=== PATIENT | female | born 1945 | race Asian ===

== ENCOUNTER 2022-05-10 08:00 | Emergency (ER) | payer MEDICARE, MEDICAID, SELFPAY ==
[2022-05-10 08:19] VITALS: BP 94/56; PULSE 63; RESP 18; TEMP 35.9; O2SAT 98
[2022-05-10 09:00] VITALS: PULSE 78; RESP 16; O2SAT 97
--- NOTE | 2022-05-10 09:01 | CRLHL7_ITS ---
For Patients: As a result of the Cures Act, medical imaging exams and procedure reports are released immediately into your electronic medical record. You may view this report before your referring provider. If you have questions, please contact your health care provider. HISTORY: Chronic pain. TECHNIQUE: Two views of both knees. COMPARISON: No prior. FINDINGS: Mild degenerative changes involving both knees. There is no acute fracture or suprapatellar joint effusion. Vascular calcifications are present bilaterally. On the left, there are surgical clips which likely relate to prior vein graft harvest. IMPRESSION: 1. No acute fracture or suprapatellar joint effusion. 2. Mild degenerative changes. Dictated by Rafal Miranda MD @ 05/10/2022 10:16:35 AM Dictated by: Rafal Miranda MD @ 05/10/2022 10:16:37 (Electronically Signed)
--- NOTE | 2022-05-10 09:02 | CRLHL7_ITS ---
For Patients: As a result of the Cures Act, medical imaging exams and procedure reports are released immediately into your electronic medical record. You may view this report before your referring provider. If you have questions, please contact your health care provider. HISTORY: Worsening chronic pain. TECHNIQUE: One view of the pelvis. COMPARISON: No prior. FINDINGS: There is no acute fracture. Degenerative changes of the hips. The right hip joint space is mildly to moderately narrowed superiorly. There are degenerative changes within the lower lumbar spine. No acute fracture. Vascular calcifications are present. IMPRESSION: 1. No acute fracture. 2. Degenerative changes. Dictated by Rafal Miranda MD @ 05/10/2022 10:13:39 AM Dictated by: Rafal Miranda MD @ 05/10/2022 10:13:45 (Electronically Signed)
--- NOTE | 2022-05-10 09:03 | ED.GENADULT ---
HPI - General Adult General Chief complaint: Extremity Pain/Injury, Lower Stated complaint: Bilateral leg pain can't walk Time Seen by Provider: 05/10/22 08:55 History of Present Illness HPI narrative: This 76-year-old female comes in with her daughter. She is Hmong and her daughter is able to translate for her. She reports pain in her legs for the past year that has been worsening. This is especially so in the past month. The patient reports pain with bearing weight but also when laying down. She does not have any injury event or fall. She is not taking any medications for pain. She is able to raise each leg off of the bed. Related Data Previous Rx's Medication Instructions Recorded hydrocodone 5 mg-acetaminophen 325 1 tab PO Q4-6H PRN pain #20 tabs 05/10/22 mg tablet Allergies Allergy/AdvReac Type Severity Reaction Status Date / Time No Known Allergies Allergy Unverified 12/18/21 10:37 Review of Systems Narrative: Review of systems is difficult to obtain with language barrier. She does report leg pain as described above. [facility] Medical History (Updated 05/10/22 @ 11:04 by Scott Rojas MD) History of migraine History of myocardial infarction (02/04/10) Surgical History (Updated 12/25/21 @ 10:37 by Dioni Jones) History of cataract extraction (07/2017) History of coronary artery bypass surgery (2009) Social History Smoking Status: Never smoker How often do you have a drink containing alcohol: never AUDIT-C Alcohol total score: 0 Non-prescribed substance use: denies use Exam Narrative: Exam Narrative: Constitutional: Well-developed, well-nourished, no acute distress. HEENT: Normocephalic, atraumatic. Neck: Normal range of motion. Nontender. Supple. Heart: Regular. No murmurs. Normal rate. Intact distal pulses. Lungs: Clear to auscultation. No chest discomfort. No wheezes, rhonchi, or rales. Abdomen: Normal bowel sounds. Nontender. No rebound tenderness. Genitalia: Deferred. Back: No midline tenderness. Normal range of motion. Extremities: No sign of injury. He is able to raise each leg from the bed. She reports diffuse pain throughout her legs and hips. Skin: Intact. No rash. Warm. No erythema or pallor. Neurologic: No altered sensation. No weakness. Alert and oriented. Psychiatric: No suicidality. No anxiety or depression. No insomnia. Nursing notes and vitals signs are reviewed. Const: Vital Signs, click to edit/add: Vital Signs - 24 hr 05/10/22 08:19 Temperature 96.7 F L Pulse Rate [Pulse Oximeter] 63 Respiratory Rate 18 Blood Pressure [Ri ght Upper Arm] 94/56 L Pulse Oximetry 98 Oxygen Delivery Me thod Room Air Course Vital Signs Vital signs: Initial Vital Signs Temperature 96.7 F L 05/10/22 08:19 Temperature Source Temporal Artery Scan 05/10/22 08:19 Pulse Rate 63 05/10/22 08:19 Respiratory Rate 18 05/10/22 08:19 Blood Pressure 94/56 L 05/10/22 08:19 Blood Pressure Mean 68 05/10/22 08:19 Blood Pressure Position Sitting 05/10/22 08:19 Pulse Oximetry 98 05/10/22 08:19 Oxygen Delivery Method 05/10/22 08:19 Vital Signs Temperature 96.7 F L 05/10/22 08:19 Pulse Rate 63 05/10/22 08:19 Respiratory Rate 18 05/10/22 08:19 Blood Pressure 94/56 L 05/10/22 08:19 Pulse Oximetry 98 05/10/22 08:19 Oxygen Delivery Method 05/10/22 08:19 Temperature 96.7 F L 05/10/22 08:19 Pulse Rate 63 05/10/22 08:19 Respiratory Rate 18 05/10/22 08:19 Blood Pressure 94/56 L 05/10/22 08:19 Pulse Oximetry 98 05/10/22 08:19 Oxygen Delivery Method 05/10/22 08:19 Medical Decision Making MDM Narrative Medical decision making narrative: This patient comes in with her daughter because of worsening chronic pain in her lower extremities. There was no particular injury event. She is not on any pain medications. An IV was established and labs were drawn. She did received Dilaudid 0.2 mg which brought some relief to her symptoms. Her labs return completely normal. Additionally x-ray images of her pelvis and bilateral knees show no acute findings. She does have some degenerative changes in these joints and this most likely explains her pain. Her sed rate returns in normal range. I explained these results to the patient's daughter who is able to translate to her mother's northern [place] language. A prescription for Evarts is provided. I explained that this is not a good long-term plan for pain relief and that she should follow-up with her primary physician in this regard. Lab Data Labs: Lab Results 05/10/22 05/10/22 05/10/22 Range/Units 09:30 09:30 09:30 WBC 4.89 (4.50-11.00) K/uL RBC 4.58 (4.00-5.20) m/uL Hgb 13.0 (12.0-16.0) gm/dL Hct 41.3 (33.0-51.0) % MCV 90 (80-100) fL MCH 28 (26-34) pg MCHC 32 (32-36) gm/dL RDW Coeff of Mandi 14.2 (11.5-15.5) % Plt Count 176 (140-440) K/uL Neut % (Auto) 62.3 (42.0-72.0) % Lymph % (Auto) 25.8 (20-44) % Johnson % (Auto) 8.2 (0.0-11.0) % Eos % (Auto) 3.1 (0.0-7.0) % Baso % (Auto) 0.4 (0.0-3.0) % Neut # (Auto) 3.05 (1.7-7.0) K/uL Lymph # (Auto) 1.26 (0.90-2.90) K/uL Johnson # (Auto) 0.40 (0.00-0.90) K/UL Eos # (Auto) 0.15 (0.00-0.50) K/uL Baso # (Auto) 0.02 (0.00-0.30) K/uL Abs Immat Gran (auto) 0.01 (0.00-0.30) K/uL Imm/Tot Granulo (auto) 0.2 % ESR 18 (2-20) mm/hr Sodium 140 (135-149) mmol/L Potassium 3.6 (3.6-5.1) mmol/L Chloride 108 (96-114) mmol/L Carbon Dioxide 27 (20-32) mmol/L BUN 19 (7-30) mg/dL Creatinine 0.5 (0.5-1.5) mg/dL Estimated GFR 97 ml/min Glucose 113 (60-115) mg/dL Calcium 8.6 (8.4-10.6) mg/dL Imaging Data XR Pelvis: Radiologist's impression: There is no acute fracture. Degenerative changes of the hips. The right hip joint space is mildly to moderately narrowed superiorly. There are degenerative changes within the lower lumbar spine. No acute fracture. Vascular calcifications are present. XR Knees bilateral: Radiologist's impression: 1. No acute fracture or suprapatellar joint effusion. 2. Mild degenerative changes. Discharge Plan Discharge Clinical Impression: Lower extremity pain, bilateral Patient Disposition: Home, Self-Care Condition: Stable Additional Instructions: Take medications as needed and indicated. Follow up with MD to consider ongoing plans for pain management or return if worsening. Prescriptions: New hydrocodone-acetaminophen 5-325 mg tablet 1 tab PO Q4-6H PRN (Reason: pain) Qty: 20 0RF Follow Up/Referrals: John San MD [Primary Care Provider] - Stand Alone Forms: [employer] Info Instructions
[2022-05-10] MEDS: HYDROmorphone 0.5 mg/0.5 ml inj 0.2 MG IVP (09:36)
[2022-05-10 09:43] LABS: Basophils Absolute Auto 0.02 K/uL (0.00-0.30); Basophils Percent Auto 0.4 % (0.0-3.0); Eosinophils Absolute Auto 0.15 K/uL (0.00-0.50); Eosinophils Percent Auto 3.1 % (0.0-7.0); Hematocrit 41.3 % (33.0-51.0); Immature Granulocytes Abs Auto 0.01 K/uL (0.00-0.30); Immature Granulocytes Pct Auto 0.2 %; Lymphocytes Absolute Auto 1.26 K/uL (0.90-2.90); Lymphocytes Percent Auto 25.8 % (20-44); Mean Corpuscular HGB Conc 32 gm/dL (32-36); Mean Corpuscular Hemoglobin 28 pg (26-34); Mean Corpuscular Volume 90 fL (80-100); Monocytes Percent Auto 8.2 % (0.0-11.0); Neutrophils Absolute Auto 3.05 K/uL (1.7-7.0); Neutrophils Percent Auto 62.3 % (42.0-72.0); Platelet Count* 176 K/uL (140-440); RDW Coefficient of Variation % 14.2 % (11.5-15.5); Red Blood Count 4.58 m/uL (4.00-5.20); White Blood Count* 4.89 K/uL (4.50-11.00)
--- NOTE | 2022-05-10 09:43 | ED.NURSE ---
pt sleeping soundly between cares. dilaudid iv given for 10/10 bilateral leg pain. daughter at bedside interpreting. pt understanding mozambican also.
[2022-05-10 09:51] LABS: Slide Review Reflex No
[2022-05-10 09:55] LABS: Chloride* 108 mmol/L (96-114); Sodium* 140 mmol/L (135-149)
[2022-05-10 09:56] LABS: Potassium* 3.6 mmol/L (3.6-5.1)
[2022-05-10 09:58] LABS: Carbon Dioxide* 27 mmol/L (20-32); Creatinine* 0.5 mg/dL (0.5-1.5); Estimated Glomerular Filt Rate 97 ml/min
[2022-05-10 09:59] LABS: Blood Urea Nitrogen* 19 mg/dL (7-30); Calcium* 8.6 mg/dL (8.4-10.6); Glucose* 113 mg/dL (60-115)
[2022-05-10 10:56] LABS: Erythrocyte SedimentationRate* 18 mm/hr (2-20)
== END 2022-05-10 11:22 | disposition home or self-care (01) ==
PROVIDERS: Emergency Provider Emergency Medicine Emergency Medical Services; PCP Family Medicine
DX: M79.604 Pain in right leg (principal); M79.605 Pain in left leg
CPT/HCPCS: 36415; 72170; 73560; 80048; 85025; 85651; 96374; 99284; J1170

== ENCOUNTER 2022-07-24 17:14 | Emergency (ER) | payer MEDICARE, MEDICAID, SELFPAY ==
[2022-07-24] VITALS (18 sets, daily range): BP systolic 83–129; BP diastolic 54–76; PULSE 64–72; RESP 20; TEMP 36.2; O2SAT 94–99
--- NOTE | 2022-07-24 18:50 | CRLHL7_ITS ---
For Patients: As a result of the Century Cures Act, medical imaging exams and procedure reports are released immediately into your electronic medical record. You may view this report before your referring provider. If you have questions, please contact your health care provider. INDICATION: Chest pain. TECHNIQUE: Chest 1 views. COMPARISON: None. FINDINGS: Cardiovascular and mediastinum: Magnified heart size secondary to low lung volume. Normal vasculature. Sternotomy wires. Lungs and pleural spaces: Lungs are clear. No sign of infiltrate or mass. No sign of pleural effusion. No pneumothorax. Bones and soft tissues: No significant findings. IMPRESSION: Magnified heart size secondary to low lung volumes. No acute cardiopulmonary abnormality. Dictated by Mele Davalos MD @ 07/24/2022 7:44:47 PM (Electronically Signed)
--- NOTE | 2022-07-24 18:53 | ED_ITS ---
HPI - Chest Pain General Chief Complaint: Chest Pain Stated Complaint: Covid+, Chest Pain Time Seen by Provider: 07/24/22 18:35 History of Present Illness HPI narrative: 76-year-old woman presenting to the emergency department with her daughter serving as scissors grinder with complaint of mid low chest upper abdominal pain that has been present since last night until this morning. It sounds as though it was somewhat intermittent but I believe with further questioning it really was fairly persistent. She denies a history of GERD. Does have a history of coronary artery disease with history of LA about 19 years ago. She has CHF with preserved ejection fraction. Did have a myalgias as well as of starting 2 days ago and tested positive for COVID at that time. These apparently are absent as well as absent chest pain at this time. Reportedly also had fevers yesterday. At this time seems to feel well. She is not short of breath. No pains. Looks like is taking Paxlovid. Associated with this discomfort she was describing is lower extremity and feet cramping. Does not appear to be present at this time. Related Data Home Medications Medication Instructions Recorded Confirmed clopidogrel 75 mg tablet 75 mg PO DAILY 07/24/22 07/24/22 furosemide 20 mg tablet 20 mg PO DAILY 07/24/22 07/24/22 lisinopril 2.5 mg tablet 2.5 mg PO DAILY 07/24/22 07/24/22 nitroglycerin 0.4 mg sublingual 0.4 mg sublingual Q5M PRN 07/24/22 07/24/22 tablet Previous Rx's Medication Instructions Recorded hydrocodone 5 mg-acetaminophen 325 1 tab PO Q4-6H PRN pain #20 tabs 11/13/22 mg tablet metoprolol succinate 25 mg 12.5 mg PO QDAY #45 tabs 07/03/22 tablet,extended release 24 hr nirmatrelvir 300 mg (150 mg See Rx Instructions PO .COMPLEX 07/24/22 x2)-ritonavir 100 mg tablet,dose #30 ea pack(EUA) (Paxlovid) Allergies Allergy/AdvReac Type Severity Reaction Status Date / Time No Known Allergies Allergy Verified 07/24/22 17:34 Review of Systems Status of ROS Reports: 6 or more systems reviewed and unremarkable except as noted in History and below [facility] Medical History COVID-19 virus infection History of migraine History of myocardial infarction (02/04/10) Surgical History History of cataract extraction (07/2017) History of coronary artery bypass surgery (2009) Social History Smoking Status: Never smoker How often do you have a drink containing alcohol: never AUDIT-C Alcohol total score: 0 Non-prescribed substance use: denies use Exam Narrative Exam Narrative: Small stature. Appears to have good energy. NAD. Skin is warm and dry extremities are without edema and well perfused. Cranial nerves 2-12 look to be intact. Lungs appear to be clear. heart in a regular rhythm with regular rate. Chest is nontender to palpation. Abdomen is soft and sounds like I am reproducing some of her discomfort with palpation of the epigastrium. No hypogastric pain. Moving all extremities without difficulty. No contractions or spasms appreciated. Const Vital Signs, click to edit/add: Vital Signs - 24 hr 07/24/22 17:27 07/24/22 17:32 07/24/22 17:33 Temperature 97.2 F L Pulse Rate 69 70 Pulse Rate [Pulse Oximeter] 69 Respiratory Rate 20 Blood Pressure 129/76 Blood Pressure [Left Upper Arm] 129/76 Pulse Oximetry 94 95 95 Oxygen Delivery Method Room Air Room Air 07/24/22 17:45 07/24/22 18:00 07/24/22 18:01 Temperature Pulse Rate 69 68 66 Pulse Rate [Pulse Oximeter] Respiratory Rate Blood Pressure 112/69 Blood Pressure [Left Upper Arm] Pulse Oximetry 94 94 94 Oxygen Delivery Method 07/24/22 18:31 07/24/22 19:01 07/24/22 19:31 Temperature Pulse Rate Pulse Rate [Pulse Oximeter] Respiratory Rate Blood Pressure 95/59 L 101/71 83/54 L Blood Pressure [Left Upper Arm] Pulse Oximetry Oxygen Delivery Method 07/24/22 19:40 07/24/22 19:45 07/24/22 20:00 Temperature Pulse Rate 72 67 65 Pulse Rate [Pulse Oximeter] Respiratory Rate Blood Pressure Blood Pressure [Left Upper Arm] Pulse Oximetry 97 96 96 Oxygen Delivery Method 07/24/22 20:01 07/24/22 20:15 07/24/22 20:30 Temperature Pulse Rate 65 64 64 Pulse Rate [Pulse Oximeter] Respiratory Rate Blood Pressure 98/62 Blood Pressure [Left Upper Arm] Pulse Oximetry 96 98 98 Oxygen Delivery Method 07/24/22 20:31 07/24/22 20:45 07/24/22 21:00 Temperature Pulse Rate 64 64 64 Pulse Rate [Pulse Oximeter] Respiratory Rate Blood Pressure 112/65 Blood Pressure [Left Upper Arm] Pulse Oximetry 98 96 99 Oxygen Delivery Method Documenting provider has reviewed patient's vital signs: yes Course Vital Signs Vital signs: Initial Vital Signs Temperature 97.2 F L 07/24/22 17:27 Temperature Source Temporal Artery Scan 07/24/22 17:27 Pulse Rate 69 07/24/22 17:27 Respiratory Rate 20 07/24/22 17:27 Blood Pressure 129/76 07/24/22 17:27 Blood Pressure Mean 93 07/24/22 17:27 Blood Pressure Position Supine 07/24/22 17:27 Pulse Oximetry 94 07/24/22 17:27 Oxygen Delivery Method 07/24/22 17:27 Vital Signs Temperature 97.2 F L 07/24/22 17:27 Pulse Rate 69 07/24/22 17:27 Respiratory Rate 20 07/24/22 17:27 Blood Pressure 129/76 07/24/22 17:27 Pulse Oximetry 94 07/24/22 17:27 Oxygen Delivery Method 07/24/22 17:27 Temperature 97.2 F L 07/24/22 17:27 Pulse Rate 64 07/24/22 21:00 Respiratory Rate 20 07/24/22 17:27 Blood Pressure 112/65 07/24/22 20:31 Pulse Oximetry 99 07/24/22 21:00 Oxygen Delivery Method 07/24/22 17:32 MDM - Chest Pain MDM Narrative Medical decision making narrative: Describing some discomfort in the area of the epigastrium. Unclear if this is indigestion. Paxlovid related? Also evaluate for cardiac etiology I think is our primary concern as she does have significant history. Given duration of pain and now symptom free I would think singular troponin would be enough. Myalgias had been described as well as her talking about cramps in the lower extremities. This again is in the setting of COVID diagnosis. EKG reviewed without evidently new ischemic changes. There does appear to have been development of right bundle branch block though since November of 2021. This however seems to have been more evident, similar, in November of 2020 Chest x-ray reviewed by me does not appear to show any acute abnormality. Postoperative changes evident. Limited by limited chest expansion. Labs overall reassuring though with CRP of 2.2. COVID positive confirmed. Given 500 mL bolus of normal saline. Remain symptom-free and without event on monitor during time in emergency department. Lab Data Attestation: I reviewed the patient's lab results. Labs: Lab Results 07/24/22 07/24/22 07/24/22 Range/Units 18:15 18:15 18:15 WBC 6.02 (4.50-11.00) K/uL RBC 4.52 (4.00-5.20) m/uL Hgb 13.0 (12.0-16.0) gm/dL Hct 40.3 (33.0-51.0) % MCV 89 (80-100) fL MCH 29 (26-34) pg MCHC 32 (32-36) gm/dL RDW Coeff of Mandi 14.4 (11.5-15.5) % Plt Count 210 (140-440) K/uL Neut % (Auto) 70.9 (42.0-72.0) % Lymph % (Auto) 16.9 L (20-44) % [place] % (Auto) 8.1 (0.0-11.0) % Eos % (Auto) 2.8 (0.0-7.0) % Baso % (Auto) 0.5 (0.0-3.0) % Neut # (Auto) 4.26 (1.7-7.0) K/uL Lymph # (Auto) 1.00 (0.90-2.90) K/uL [place] # (Auto) 0.50 (0.00-0.90) K/UL Eos # (Auto) 0.17 (0.00-0.50) K/uL Baso # (Auto) 0.03 (0.00-0.30) K/uL Sodium 133 L (135-149) mmol/L Potassium 4.0 (3.6-5.1) mmol/L Chloride 102 (96-114) mmol/L Carbon Dioxide 24 (20-32) mmol/L BUN 19 (7-30) mg/dL Creatinine 0.7 (0.5-1.5) mg/dL Estimated GFR 89 ml/min Glucose 138 H (60-115) mg/dL Calcium 8.6 (8.4-10.6) mg/dL Total Bilirubin (0.1-1.5) mg/dL Direct Bilirubin (0.0-0.5) mg/dL AST (12-35) U/L ALT (4-35) U/L Alkaline Phosphatase (40-150) U/L C-Reactive Protein 2.2 H (0.5-1.0) mg/dL NT-Pro-B Natriuret Pep 860 pg/mL Total Protein (6.0-8.3) g/dL Albumin (3.3-5.0) g/dL SARS-CoV-2 (PCR) (Negative) Influenza Type A (PCR) (Negative) Influenza Type B (PCR) (Negative) POC Troponin I 0.01 (0.01-0.04) ng/ml 07/24/22 07/24/22 Range/Units 18:15 18:51 WBC (4.50-11.00) K/uL RBC (4.00-5.20) m/uL Hgb (12.0-16.0) gm/dL Hct (33.0-51.0) % MCV (80-100) fL MCH (26-34) pg MCHC (32-36) gm/dL RDW Coeff of Mandi (11.5-15.5) % Plt Count (140-440) K/uL Neut % (Auto) (42.0-72.0) % Lymph % (Auto) (20-44) % [place] % (Auto) (0.0-11.0) % Eos % (Auto) (0.0-7.0) % Baso % (Auto) (0.0-3.0) % Neut # (Auto) (1.7-7.0) K/uL Lymph # (Auto) (0.90-2.90) K/uL [place] # (Auto) (0.00-0.90) K/UL Eos # (Auto) (0.00-0.50) K/uL Baso # (Auto) (0.00-0.30) K/uL Sodium (135-149) mmol/L Potassium (3.6-5.1) mmol/L Chloride (96-114) mmol/L Carbon Dioxide (20-32) mmol/L BUN (7-30) mg/dL Creatinine (0.5-1.5) mg/dL Estimated GFR ml/min Glucose (60-115) mg/dL Calcium (8.4-10.6) mg/dL Total Bilirubin 1.1 (0.1-1.5) mg/dL Direct Bilirubin 0.4 (0.0-0.5) mg/dL AST 31 (12-35) U/L ALT 17 (4-35) U/L Alkaline Phosphatase 97 (40-150) U/L C-Reactive Protein (0.5-1.0) mg/dL NT-Pro-B Natriuret Pep pg/mL Total Protein 6.7 (6.0-8.3) g/dL Albumin 3.6 (3.3-5.0) g/dL SARS-CoV-2 (PCR) POSITIVE SARS-CoV-2 A (Negative) Influenza Type A (PCR) Negative PCR FLU A (Negative) Influenza Type B (PCR) Negative PCR FLU B (Negative) POC Troponin I (0.01-0.04) ng/ml ECG Data Attestation: I personally reviewed and interpreted this ECG as follows: (Right bundle branch block and rate of 61) Discharge Plan Discharge Clinical Impression: COVID-19, Epigastric abdominal pain, Chest pain Patient Disposition: Home w/ Parent or Adult Condition: Improved Additional Instructions: It does not appear that you had any recent heart attack that I can determine. I hope that is reassuring. COVID can create strange symptoms. You're also on a new medication that might be causing some stomach discomfort? I would continue to stay well hydrated. If this discomfort recurs in the far upper abdomen as you demonstrated, you might try a dose of liquid antacid/anti-gas. If that symptom isn't improved within an hour, be seen again. However if this pain is very intense and associated with shortness of breath or lightheadedness or other weakness, maybe with sweatiness, please be seen sooner. Prescriptions: No Action hydrocodone-acetaminophen 5-325 mg tablet 1 tab PO Q4-6H PRN (Reason: pain) Qty: 20 0RF clopidogrel 75 mg tablet 75 mg PO DAILY Label Comments: TAKE 1 TABLET BY MOUTH DAILY furosemide 20 mg tablet 20 mg PO DAILY Label Comments: TAKE 1 TABLET BY MOUTH DAILY lisinopril 2.5 mg tablet 2.5 mg PO DAILY Label Comments: TAKE 1 TABLET BY MOUTH TWICE DAILY nitroglycerin 0.4 mg tablet, sublingual 0.4 mg sublingual Q5M PRN metoprolol succinate 25 mg tablet extended release 24 hr 12.5 mg PO QDAY Qty: 45 1RF Paxlovid (EUA) 300 mg (150 mg x 2)-100 mg tablets,dose pack See Rx Instructions PO .COMPLEX Qty: 30 0RF Rx Instructions: take TWO 150 mg tablets of nirmatrelvir with ONE 100 mg tablet of ritonavir twice daily for 5 days PO Follow Up/Referrals: John San MD [Primary Care Provider] - Stand Alone [facility]
[2022-07-24 19:13] LABS: Basophils Absolute Auto 0.03 K/uL (0.00-0.30); Basophils Percent Auto 0.5 % (0.0-3.0); Eosinophils Absolute Auto 0.17 K/uL (0.00-0.50); Eosinophils Percent Auto 2.8 % (0.0-7.0); Hematocrit 40.3 % (33.0-51.0); Immature Granulocytes Abs Auto 0.05 K/uL (0.00-0.30); Immature Granulocytes Pct Auto 0.8 %; Lymphocytes Percent Auto 16.9 % (20-44); Mean Corpuscular HGB Conc 32 gm/dL (32-36); Mean Corpuscular Hemoglobin 29 pg (26-34); Mean Corpuscular Volume 89 fL (80-100); Monocytes Percent Auto 8.1 % (0.0-11.0); Neutrophils Absolute Auto 4.26 K/uL (1.7-7.0); Neutrophils Percent Auto 70.9 % (42.0-72.0); Platelet Count* 210 K/uL (140-440); RDW Coefficient of Variation % 14.4 % (11.5-15.5); Red Blood Count 4.52 m/uL (4.00-5.20); White Blood Count* 6.02 K/uL (4.50-11.00)
[2022-07-24 19:18] LABS: Slide Review Reflex No
[2022-07-24 19:19] LABS: Chloride* 102 mmol/L (96-114); Sodium* 133 mmol/L (135-149)
[2022-07-24 19:20] LABS: Albumin* 3.6 g/dL (3.3-5.0)
[2022-07-24] MEDS: 0.9 % SODIUM CHLORIDE 500 ML 500 ML IV (19:20)
[2022-07-24 19:22] LABS: Creatinine* 0.7 mg/dL (0.5-1.5); Estimated Glomerular Filt Rate 89 ml/min
[2022-07-24 19:23] LABS: Bilirubin Direct* 0.4 mg/dL (0.0-0.5); Bilirubin Total* 1.1 mg/dL (0.1-1.5); Blood Urea Nitrogen* 19 mg/dL (7-30); Calcium* 8.6 mg/dL (8.4-10.6); Carbon Dioxide* 24 mmol/L (20-32); Glucose* 138 mg/dL (60-115); Total Protein* 6.7 g/dL (6.0-8.3)
[2022-07-24 19:24] LABS: Alanine Aminotransferase* 17 U/L (4-35); Alkaline Phosphatase* 97 U/L (40-150); Aspartate Amino Transferase* 31 U/L (12-35)
[2022-07-24 19:26] LABS: C Reactive Protein* 2.2 mg/dL (0.5-1.0)
[2022-07-24 19:32] LABS: NT Pro B Type NatriureticPept* 860 pg/mL
[2022-07-24 19:43] LABS: Troponin, Point-of-Care* 0.01 ng/ml (0.01-0.04)
[2022-07-24 20:26] LABS: PCR FLU A Negative PCR FLU A (Negative); PCR FLU B Negative PCR FLU B (Negative)
[2022-07-24 20:31] LABS: SARS PCR* POSITIVE SARS-CoV-2 (Negative)
== END 2022-07-24 21:26 | disposition home or self-care (01) ==
PROVIDERS: Emergency Provider Family Medicine; PCP Family Medicine
DX: R07.9 Chest pain, unspecified (principal); R10.13 Epigastric pain; U07.1 COVID-19
CPT/HCPCS: 36415; 71045; 80048; 80076; 83880; 84484; 85025; 86140; 87631; 93005; 99284; 99285; J7120

== ENCOUNTER 2022-09-30 08:12 | Inpatient (IN) | payer MEDICARE, MEDICAID, SELFPAY ==
[2022-09-30] VITALS (21 sets, daily range): BP systolic 95–144; BP diastolic 54–82; PULSE 56–77; RESP 16–28; TEMP 35.9–37.8; O2SAT 93–100; BMI 30.3
--- NOTE | 2022-09-30 08:41 | CRLHL7_ITS ---
For Patients: As a result of the Century Cures Act, medical imaging exams and procedure reports are released immediately into your electronic medical record. You may view this report before your referring provider. If you have questions, please contact your health care provider. Indication: Cough Technique: Chest 1 view Comparison: Chest x-ray 07/24/2022 Findings/Impression: Cardiovascular and mediastinum: Normal heart size with mild aortic tortuosity and prominent atherosclerotic calcification. Lungs and pleural space: No pleural effusion or pneumothorax. Slight patchy opacity at the left lung base above the left hemidiaphragm consistent with atelectasis or pneumonia. Bones and soft tissues: Status post median sternotomy. Dictated by Joshua Miller MD @ 09/30/2022 9:56:34 AM (Electronically Signed)
--- NOTE | 2022-09-30 08:46 | ED_ITS ---
HPI - General Adult General Time Seen by Provider: 08:46 Date Seen: 09/30/22 Chief complaint: Weakness Stated complaint: fatigued, body aches Time Seen by Provider: 09/30/22 08:20 Source: patient Mode of arrival: EMS Limitations: no limitations History of Present Illness HPI narrative: Patient is a 77-year-old southeast female who does not speak Spanish who through her daughter who is interpreting reports that she has had a cough for about a month, her COVID was positive in July. She was doing okay over the last 3 weeks worse over the last week she has had deterioration where she does not walk much to eat or drink much. She has been moaning complaining of generalized pain. No shortness of breath complaint no chest pain complaint. But when asked states through her daughter decatizer ?my body hurts all over?. She has no leg swelling, edema, history of bleeding or clotting problems, she has a history of heart disease with pulmonary hypertension she has had a core coronary bypass grafting and she has got congestive heart failure. Patient does not have a fever here and has a excellent O2 sat. She has apparently been nonambulatory at home. They she lives with her elderly . Related Data Home Medications Medication Instructions Recorded Confirmed clopidogrel 75 mg tablet 75 mg PO DAILY 07/24/22 09/30/22 furosemide 20 mg tablet 20 mg PO DAILY 07/24/22 09/30/22 lisinopril 2.5 mg tablet 2.5 mg PO DAILY 07/24/22 09/30/22 metoprolol succinate 25 mg 12.5 mg PO DAILY 09/30/22 09/30/22 tablet,extended release 24 hr Allergies Allergy/AdvReac Type Severity Reaction Status Date / Time No Known Allergies Allergy Verified 07/24/22 17:34 Review of Systems Status of ROS: Reports: 6 or more systems reviewed and unremarkable except as noted in History and below [facility] Medical History (Updated 09/30/22 @ 12:25 by Kimberly Aldridge MD) Coronary artery disease ?I25.10 - Atherosclerotic heart disease of [place] coronary artery without angina pectoris (ICD-10) COVID-19 virus infection ?U07.1 - COVID-19 (ICD-10) History of migraine ?Z86.69 - Personal history of other diseases of the nervous system and sense organs (ICD-10) History of myocardial infarction (02/04/10) ?I25.2 - Old myocardial infarction (ICD-10) Hyperlipidemia ?E78.5 - Hyperlipidemia, unspecified (ICD-10) Left ventricular hypertrophy ?I51.7 - Cardiomegaly (ICD-10) Mitral valve insufficiency ?I34.0 - Nonrheumatic mitral (valve) insufficiency (ICD-10) Pulmonary hypertension ?I27.20 - Pulmonary hypertension, unspecified (ICD-10) 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.1 - Rheumatic tricuspid insufficiency (ICD-10) Surgical History (Updated 09/30/22 @ 11:48 by Kimberly Aldridge MD) History of cataract extraction (07/2017) ?Z98.49 - Cataract extraction status, unspecified eye (ICD-10) History of coronary artery bypass surgery (2009) ?Z95.1 - Presence of aortocoronary bypass graft (ICD-10) Social History (Updated 09/30/22 @ 12:02 by Kimberly Aldridge MD) Narrative: Grew up in [facility], in the since the 1970s. Hmong is primary language. 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 Had 10 children, 4 living children now. 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 Nonsmoker, no ETOH. Vishal would be medical decision maker if needed; requests Full Code status. Highest level of school completed/degree received: never attended/kindergarten only Smoking Status: Never smoker How often do you have a drink containing alcohol: never AUDIT-C Alcohol total score: 0 Non-prescribed substance use: denies use Caffeine: No service: No Exam Narrative: Exam Narrative: Objective: Patient's vital signs look largely unremarkable and she has a little bit tachypneic, O2 sat is excellent She is moaning laying in the bed her eyes are closed, she does open her eyes to questioning, opens her mouth, her mouth is dry Neck is supple Chest is clear Heart rhythm regular with 2/6 systolic ejection murmur Abdomen benign soft nontender Extremities are no edema neurologic nonfocal Skin is in the periphery is warm and dry Const: Vital Signs, click to edit/add: Vital Signs - 24 hr 09/30/22 08:31 09/30/22 08:40 09/30/22 08:30 Temperature 96.6 F L Pulse Rate 73 Pulse Rate [Pulse Oximeter] 70 Pulse Rate [Right Pulse Oximeter] Respiratory Rate 28 H Blood Pressure 121/65 Blood Pressure [Le ft Upper Arm] 121/65 Blood Pressure [Ri ght Arm] Pulse Oximetry 98 98 98 [facility] 09/30/22 08:31 09/30/22 08:32 09/30/22 09:01 Temperature Pulse Rate 73 72 Pulse Rate [Pulse Oximeter] Pulse Rate [Right Pulse Oximeter] Respiratory Rate Blood Pressure 115/60 144/67 H Blood Pressure [Le ft Upper Arm] Blood Pressure [Ri ght Arm] Pulse Oximetry 97 99 [facility] 09/30/22 09:21 09/30/22 09:30 09/30/22 09:31 Temperature Pulse Rate 73 71 68 Pulse Rate [Pulse Oximeter] Pulse Rate [Right Pulse Oximeter] Respiratory Rate Blood Pressure 118/82 Blood Pressure [Le ft Upper Arm] Blood Pressure [Ri ght Arm] Pulse Oximetry 99 100 99 [facility] 09/30/22 09:32 09/30/22 09:47 09/30/22 10:00 Temperature Pulse Rate 69 73 74 Pulse Rate [Pulse Oximeter] Pulse Rate [Right Pulse Oximeter] Respiratory Rate Blood Pressure Blood Pressure [Le ft Upper Arm] Blood Pressure [Ri ght Arm] Pulse Oximetry 100 98 93 [facility]xygen Delivery [facility] 09/30/22 10:01 09/30/22 10:15 09/30/22 10:30 Temperature Pulse Rate 76 74 76 Pulse Rate [Pulse Oximeter] Pulse Rate [Right Pulse Oximeter] Respiratory Rate Blood Pressure 120/73 Blood Pressure [Le ft Upper Arm] Blood Pressure [Ri ght Arm] Pulse Oximetry 93 96 98 [facility] 09/30/22 10:31 09/30/22 11:21 09/30/22 11:20 Temperature 97.8 F Pulse Rate 77 Pulse Rate [Pulse Oximeter] Pulse Rate [Right Pulse Oximeter] 75 Respiratory Rate 22 22 Blood Pressure 105/74 Blood Pressure [Le ft Upper Arm] Blood Pressure [Ri ght Arm] 102/65 Pulse Oximetry 98 95 95 Oxygen Delivery [facility] Room Air Room Air Course Vital Signs Vital signs: Initial Vital Signs Pulse Rate 73 09/30/22 08:30 Blood Pressure 121/65 09/30/22 08:30 Blood Pressure Mean 83 09/30/22 08:30 Pulse Oximetry 98 09/30/22 08:30 Vital Signs Pulse Rate 73 09/30/22 08:30 Blood Pressure 121/65 09/30/22 08:30 Pulse Oximetry 98 09/30/22 08:30 Temperature 97.8 F 09/30/22 11:21 Pulse Rate 75 09/30/22 11:21 Respiratory Rate 22 09/30/22 11:21 Blood Pressure 102/65 09/30/22 11:21 Pulse Oximetry 95 09/30/22 11:21 Oxygen Delivery Method Room Air 09/30/22 11:21 Medical Decision Making MDM Narrative Medical decision making narrative: Patient is a 69-year-old southeast female who through an decatizer reports that she has had body aches chills a cough for about a month and has had deteriorating weakness over the last 3 4 days. No focality or weakness. The patient needs a workup for infectious source, electrolyte check, and cardiac check. Patient will get a chest x-ray, troponin, EKG, urinalysis, blood cultures x2, COVID/influenza/RSV test. Patient may need admission for observation fluid and additional treatment given her degree of weakness and limited ability to ambulate. Addendum: The patient has 10-25 white cells per high-powered field in her urine, she also has a chest x-ray that shows some left basilar infiltrate. She has had a cough. I think treating with Rocephin and Zithromax to be appropriate this time. Given her presentation and weakness I think admission would be odd for observation be appropriate. Will await her other lab tests, discussed with hospitalist. Lab Data Labs: Lab Results 09/30/22 09/30/22 09/30/22 Range/Units 08:19 08:45 09:10 WBC 13.74 H (4.50-11.00) K/uL RBC 4.87 (4.00-5.20) m/uL Hgb 13.9 (12.0-16.0) gm/dL Hct 43.6 (33.0-51.0) % MCV 90 (80-100) fL MCH 29 (26-34) pg MCHC 32 (32-36) gm/dL RDW Coeff of Mandi 13.8 (11.5-15.5) % Plt Count 184 (140-440) K/uL Neut % (Auto) 88.6 H (42.0-72.0) % Lymph % (Auto) 6.5 L (20-44) % [place] % (Auto) 4.3 (0.0-11.0) % Eos % (Auto) 0.4 (0.0-7.0) % Baso % (Auto) 0.1 (0.0-3.0) % Neut # (Auto) 12.20 H (1.7-7.0) K/uL Lymph # (Auto) 0.90 (0.90-2.90) K/uL [place] # (Auto) 0.60 (0.00-0.90) K/UL Eos # (Auto) 0.10 (0.00-0.50) K/uL Baso # (Auto) 0.00 (0.00-0.30) K/uL Diff Slide Review Acceptable Review (Acceptable) INR 1.14 H (0.91-1.10) APTT 27 (23-33) Seconds Sodium (135-149) mmol/L Potassium (3.6-5.1) mmol/L Chloride (96-114) mmol/L Carbon Dioxide (20-32) mmol/L BUN (7-30) mg/dL Creatinine (0.5-1.5) mg/dL Estimated GFR ml/min Glucose (60-115) mg/dL Lactate (0.5-1.9) mmol/L Calcium (8.4-10.6) mg/dL Total Bilirubin (0.1-1.5) mg/dL Direct Bilirubin (0.0-0.5) mg/dL AST (12-35) U/L ALT (4-35) U/L Alkaline Phosphatase (40-150) U/L Troponin I (0.01-0.04) ng/mL C-Reactive Protein (0.5-1.0) mg/dL NT-Pro-B Natriuret Pep pg/mL Total Protein (6.0-8.3) g/dL Albumin (3.3-5.0) g/dL Urine Color Yellow (Yellow) Urine Appearance Slightly Cloudy A (Clear) Urine pH 6.5 (5.0-8.5) Ur Specific [place] 1.010 (1.000-1.030) Urine Protein Negative (Negative) Urine Glucose (UA) Negative (Negative) Urine Ketones Negative (Negative) Urine Blood Trace-intact A (Negative) Urine Nitrite Negative (Negative) Urine Bilirubin Negative (Negative) Urine Urobilinogen 2.0 A (0.2-1.0) Ur Leukocyte Esterase Trace A (Negative) Urine RBC 2-5 A (0-2) Urine WBC 10-25 A (0-5) Ur Squamous Epith Cells Few (None-Few) Urine Bacteria Few A (None) SARS-CoV-2 (PCR) Negative SARS-CoV-2 (Negative) Influenza Type A (PCR) Negative PCR FLU A (Negative) Influenza Type B (PCR) Negative PCR FLU B (Negative) RSV (PCR) Negative PCR RSV (Negative) 09/30/22 09/30/22 Range/Units 09:30 09:30 WBC (4.50-11.00) K/uL RBC (4.00-5.20) m/uL Hgb (12.0-16.0) gm/dL Hct (33.0-51.0) % MCV (80-100) fL MCH (26-34) pg MCHC (32-36) gm/dL RDW Coeff of Mandi (11.5-15.5) % Plt Count (140-440) K/uL Neut % (Auto) (42.0-72.0) % Lymph % (Auto) (20-44) % [place] % (Auto) (0.0-11.0) % Eos % (Auto) (0.0-7.0) % Baso % (Auto) (0.0-3.0) % Neut # (Auto) (1.7-7.0) K/uL Lymph # (Auto) (0.90-2.90) K/uL [place] # (Auto) (0.00-0.90) K/UL Eos # (Auto) (0.00-0.50) K/uL Baso # (Auto) (0.00-0.30) K/uL Diff Slide Review (Acceptable) INR (0.91-1.10) APTT (23-33) Seconds Sodium 132 L (135-149) mmol/L Potassium 3.7 (3.6-5.1) mmol/L Chloride 98 (96-114) mmol/L Carbon Dioxide 28 (20-32) mmol/L BUN 18 (7-30) mg/dL Creatinine 0.7 (0.5-1.5) mg/dL Estimated GFR 88 ml/min Glucose 129 H (60-115) mg/dL Lactate 1.6 (0.5-1.9) mmol/L Calcium 8.8 (8.4-10.6) mg/dL Total Bilirubin 2.0 H (0.1-1.5) mg/dL Direct Bilirubin 0.5 (0.0-0.5) mg/dL AST 26 (12-35) U/L ALT 16 (4-35) U/L Alkaline Phosphatase 132 (40-150) U/L Troponin I 0.03 0.02 (0.01-0.04) ng/mL C-Reactive Protein 20.3 H (0.5-1.0) mg/dL NT-Pro-B Natriuret Pep 1190 pg/mL Total Protein 6.7 (6.0-8.3) g/dL Albumin 3.7 (3.3-5.0) g/dL Urine Color (Yellow) Urine Appearance (Clear) Urine pH (5.0-8.5) Ur Specific [place] (1.000-1.030) Urine Protein (Negative) Urine Glucose (UA) (Negative) Urine Ketones (Negative) Urine Blood (Negative) Urine Nitrite (Negative) Urine Bilirubin (Negative) Urine Urobilinogen (0.2-1.0) Ur Leukocyte Esterase (Negative) Urine RBC (0-2) Urine WBC (0-5) Ur Squamous Epith Cells (None-Few) Urine Bacteria (None) SARS-CoV-2 (PCR) (Negative) Influenza Type A (PCR) (Negative) Influenza Type B (PCR) (Negative) RSV (PCR) (Negative) Discharge Plan Discharge Clinical Impression: Cough, Weakness
[2022-09-30 09:03] LABS: Appearance Urine Slightly Cloudy (Clear); Bilirubin Urine Negative (Negative); Blood Urine Trace-intact (Negative); Color Urine Yellow (Yellow); Glucose Urine Negative (Negative); Ketones Urine Negative (Negative); Leukocyte Esterase Urine Trace (Negative); Nitrite Urine Negative (Negative); Protein Urine Negative (Negative); pH Urine 6.5 (5.0-8.5)
[2022-09-30 09:12] LABS: SARS PCR* Negative SARS-CoV-2 (Negative)
[2022-09-30 09:18] LABS: Bacteria Urine Few; Squamous Epithelial Cell Urine Few (None-Few)
[2022-09-30 09:37] LABS: Lactate* 1.6 mmol/L (0.5-1.9)
[2022-09-30] MEDS: 0.9 % SODIUM CHLORIDE 500 ML 500 ML IV (09:42)
[2022-09-30] MEDS: MORPHINE 2 MG/ML inj IVP (09:43)
[2022-09-30 09:47] LABS: Basophils Percent Auto 0.1 % (0.0-3.0); Eosinophils Percent Auto 0.4 % (0.0-7.0); Hematocrit 43.6 % (33.0-51.0); Hemoglobin* 13.9 gm/dL (12.0-16.0); Immature Granulocytes Pct Auto 0.1 %; Lymphocytes Percent Auto 6.5 % (20-44); Mean Corpuscular HGB Conc 32 gm/dL (32-36); Mean Corpuscular Hemoglobin 29 pg (26-34); Mean Corpuscular Volume 90 fL (80-100); Monocytes Percent Auto 4.3 % (0.0-11.0); Neutrophils Percent Auto 88.6 % (42.0-72.0); Platelet Count* 184 K/uL (140-440); RDW Coefficient of Variation % 13.8 % (11.5-15.5); Red Blood Count 4.87 m/uL (4.00-5.20); White Blood Count* 13.74 K/uL (4.50-11.00)
[2022-09-30 09:48] LABS: PCR FLU A Negative PCR FLU A (Negative); PCR FLU B Negative PCR FLU B (Negative); PCR RSV Negative PCR RSV (Negative)
[2022-09-30] MEDS: cefTRIAXone 1 GM in 0.9 % SODIUM CHLORIDE Mini-bag 100 ML IVPB (10:08)
[2022-09-30 10:11] LABS: Slide Review Acceptable Review (Acceptable); Slide Review Reflex Yes
[2022-09-30 10:21] LABS: INR 1.14 (0.91-1.10); Prothrombin Time 15.3 Seconds
[2022-09-30 10:22] LABS: Chloride* 98 mmol/L (96-114); Sodium* 132 mmol/L (135-149)
[2022-09-30 10:23] LABS: Partial Thromboplastin Time* 27 Seconds (23-33)
[2022-09-30 10:23] LABS: Potassium* 3.7 mmol/L (3.6-5.1)
[2022-09-30 10:24] LABS: Albumin* 3.7 g/dL (3.3-5.0)
[2022-09-30 10:25] LABS: Creatinine* 0.7 mg/dL (0.5-1.5); Estimated Glomerular Filt Rate 88 ml/min
--- NOTE | 2022-09-30 10:25 | ED.NURSE ---
Report called to M/S RN.
[2022-09-30 10:26] LABS: Bilirubin Direct* 0.5 mg/dL (0.0-0.5); Blood Urea Nitrogen* 18 mg/dL (7-30); Calcium* 8.8 mg/dL (8.4-10.6); Carbon Dioxide* 28 mmol/L (20-32); Glucose* 129 mg/dL (60-115); Total Protein* 6.7 g/dL (6.0-8.3)
[2022-09-30 10:27] LABS: Alanine Aminotransferase* 16 U/L (4-35); Alkaline Phosphatase* 132 U/L (40-150); Aspartate Amino Transferase* 26 U/L (12-35)
[2022-09-30 10:36] LABS: Troponin I* 0.02 ng/mL (0.01-0.04)
--- NOTE | 2022-09-30 10:42 | W.PC.EDHO ---
Testing Primary Language: Preferred Language: Orientation Status: [] Alert & Oriented [] Slight Confusion [] Known Dx Dementia Transfers By: [] Assist of 1 [] Assist of 2 [] Lift Active Medications Discontinued Medications Generic Name Dose Route Start Last Admin Trade Name Jorge PRN Reason Stop Dose Admin Sodium Chloride 500 mls @ 500 mls/hr 09/30/22 08:39 09/30/22 09:42 0.9 % Sodium Chloride 500 Ml IV 09/30/22 09:38 500 mls/hr .Q1H ONE Administration Ceftriaxone Sodium 1 gm/ 100 mls @ 200 mls/hr 09/30/22 09:37 09/30/22 10:08 Sodium Chloride IVPB 09/30/22 09:38 200 mls/hr ONCE ONE Administration Morphine Sulfate 2 mg 09/30/22 08:45 09/30/22 09:43 Morphine 2 Mg/Ml Inj IVP 09/30/22 08:46 2 mg ONCE ONE Administration Description of Symptoms ED Triage Present Problem Pt's daughter interpreting. Reports cough [id number]. Description Over last 2-3 days generalized weakness and body aches. Did have covid in July. Viviane Coma Scale Viviane coma scale total score 15 Pain Pain Description [Generalized] Dull, Achy Pain Intensity [Generalized] 10 Pain Intensity 10 Pain Intensity 10 Pain Intensity 10 Pain Intensity 10 Pain Scale Used [Generalized] Numeric (1 - 10) Pain Scale Used Numeric (1 - 10) Pain Scale Used Numeric (1 - 10) Pain Scale Used Numeric (1 - 10) Pain Scale Used Yeung-Nella (Faces) IV Insertion/Site Date of IV Line Insertion [ 09/30/22 Left Antecubital] Oxygen Administration Pulse Oximetry 96 Pulse Oximetry 93 Pulse Oximetry 93 Pulse Oximetry 98 Pulse Oximetry 100 Pulse Oximetry 99 Pulse Oximetry 100 Pulse Oximetry 99 Pulse Oximetry 98 Pulse Oximetry 99 Pulse Oximetry 97 Pulse Oximetry 98 Pulse Oximetry 98 Oxygen Delivery Method Room Air Cardiac Monitoring EKG Method 12 Lead
[2022-09-30 10:46] LABS: C Reactive Protein* 20.3 mg/dL (0.5-1.0); NT Pro B Type NatriureticPept* 1190 pg/mL
--- NOTE | 2022-09-30 11:43 | P.IMHP_ITS ---
Hospitalist- H&P: HPI History of Present Illness Date Seen: 09/30/22 Chief complaint: fatigued, body aches Narrative: Sendy Moses is a 77 year old female with a history of CAD who presented to the emergency room this morning for a 2 day history of weakness and diffuse body aches. Her daughter Vishal accompanies her and provides interpretation. Patient has also noted cough, and dyspnea on exertion. She has not had any hemoptysis or GI concerns. Notably, she had COVID in July 2022 (did not require hospitalization). No syncope, no current chest pain (has noted this in the past). ER course and findings: - left sided pneumonia on chest x-ray, stable on room air - no acute abnormalities on EKG (nonspecific ST abnormality, query prolonged QT) - + WBC (negative nitrite) on UA, culture pending - white blood count 13, CRP 20, sodium 132, bilirubin 2.0 - treated with Azithromycin and Ceftriaxone Given patient's pneumonia and weakness, in addition to comorbidities, she is admitted to the hospital. Past histories updated below; PCP is Dr. Mena clayton. Review of Systems Status of ROS: Reports: 10 or more systems reviewed and unremarkable except as noted in History and below Narrative: Specifically denies GI or skin concerns. [facility] Medical History (Updated 09/30/22 @ 12:25 by Kimberly Aldridge MD) Coronary artery disease ?I25.10 - Atherosclerotic heart disease of [place] coronary artery without angina pectoris (ICD-10) COVID-19 virus infection ?U07.1 - COVID-19 (ICD-10) History of migraine ?Z86.69 - Personal history of other diseases of the nervous system and sense organs (ICD-10) History of myocardial infarction (02/04/10) ?I25.2 - Old myocardial infarction (ICD-10) Hyperlipidemia ?E78.5 - Hyperlipidemia, unspecified (ICD-10) Left ventricular hypertrophy ?I51.7 - Cardiomegaly (ICD-10) Mitral valve insufficiency ?I34.0 - Nonrheumatic mitral (valve) insufficiency (ICD-10) Pulmonary hypertension ?I27.20 - Pulmonary hypertension, unspecified (ICD-10) 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.1 - Rheumatic tricuspid insufficiency (ICD-10) Surgical History (Updated 09/30/22 @ 11:48 by Kimberly Aldridge MD) History of cataract extraction (07/2017) ?Z98.49 - Cataract extraction status, unspecified eye (ICD-10) History of coronary artery bypass surgery (2009) ?Z95.1 - Presence of aortocoronary bypass graft (ICD-10) Social History (Updated 09/30/22 @ 12:02 by Kimberly Aldridge MD) Narrative: Grew up in [facility], in the since the 1970s. Hmong is primary language. 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 Had 10 children, 4 living children now. Homemaker. Nonsmoker, no ETOH. Vishal would be medical decision maker if needed; requests Full Code status. Highest level of school completed/degree received: never attended/kindergarten only Smoking Status: Never smoker How often do you have a drink containing alcohol: never AUDIT-C Alcohol total score: 0 Non-prescribed substance use: denies use Caffeine: No service: No Meds Home Medications and Allergies Home Medications Medication Instructions Recorded Confirmed Type clopidogrel 75 mg tablet 75 mg PO DAILY 07/24/22 09/30/22 History furosemide 20 mg tablet 20 mg PO DAILY 07/24/22 09/30/22 History lisinopril 2.5 mg tablet 2.5 mg PO DAILY 07/24/22 09/30/22 History metoprolol succinate 25 mg 12.5 mg PO DAILY 09/30/22 09/30/22 History tablet,extended release 24 hr Allergies Allergy/AdvReac Type Severity Reaction Status Date / Time No Known Allergies Allergy Verified 07/24/22 17:34 Exam Narrative: Exam Narrative: GEN: Alert and laying comfortably in bed, nontoxic in appearance, speaking in full sentences HEENT: EOMIs bilaterally, no scleral icterus CV: RRR, holosystolic murmur heard across precordium R: LCTA bilaterally without concerning wheezing, air movement adequate Ab: soft, no concerning masses, mild discomfort in RUQ with palpation Ext: wwp, no concerning edema Skin: No concerning skin lesions or rashes on exposed skin Neuro: No focal deficits, no resting tremor Psych: Appropriate Const: Vital Signs, click to edit/add: Vital Signs - 24 hr 09/30/22 08:31 09/30/22 08:40 04/05/23 08:30 Temperature 96.6 F L Pulse Rate 73 Pulse Rate [Pulse Oximeter] 70 Pulse Rate [Right Pulse Oximeter] Respiratory Rate 28 H Blood Pressure 121/65 Blood Pressure [Le ft Upper Arm] 121/65 Blood Pressure [Ri ght Arm] Pulse Oximetry 98 98 98 [facility] 09/30/22 08:31 09/30/22 08:32 09/30/22 09:01 Temperature Pulse Rate 73 72 Pulse Rate [Pulse Oximeter] Pulse Rate [Right Pulse Oximeter] Respiratory Rate Blood Pressure 115/60 144/67 H Blood Pressure [Le ft Upper Arm] Blood Pressure [Ri ght Arm] Pulse Oximetry 97 99 Oxygen Delivery [facility] 09/30/22 09:21 09/30/22 09:30 09/30/22 09:31 Temperature Pulse Rate 73 71 68 Pulse Rate [Pulse Oximeter] Pulse Rate [Right Pulse Oximeter] Respiratory Rate Blood Pressure 118/82 Blood Pressure [Le ft Upper Arm] Blood Pressure [Ri ght Arm] Pulse Oximetry 99 100 99 Oxygen Delivery [facility] 09/30/22 09:32 09/30/22 09:47 09/30/22 10:00 Temperature Pulse Rate 69 73 74 Pulse Rate [Pulse Oximeter] Pulse Rate [Right Pulse Oximeter] Respiratory Rate Blood Pressure Blood Pressure [Le ft Upper Arm] Blood Pressure [Ri ght Arm] Pulse Oximetry 100 98 93 Oxygen Delivery [facility] 09/30/22 10:01 09/30/22 10:15 09/30/22 10:30 Temperature Pulse Rate 76 74 76 Pulse Rate [Pulse Oximeter] Pulse Rate [Right Pulse Oximeter] Respiratory Rate Blood Pressure 120/73 Blood Pressure [Le ft Upper Arm] Blood Pressure [Ri ght Arm] Pulse Oximetry 93 96 98 [facility] 09/30/22 10:31 09/30/22 11:21 Temperature 97.8 F Pulse Rate 77 Pulse Rate [Pulse Oximeter] Pulse Rate [Right Pulse Oximeter] 75 Respiratory Rate 22 Blood Pressure 105/74 Blood Pressure [Le ft Upper Arm] Blood Pressure [Ri ght Arm] 102/65 Pulse Oximetry 98 95 Oxygen Delivery [facility] Room Air Hospitalist - H&P: Result Labs Labs: Short CBC 09/30/22 Range/Units 09:10 WBC 13.74 H (4.50-11.00) K/uL Hgb 13.9 (12.0-16.0) gm/dL Hct 43.6 (33.0-51.0) % Plt Count 184 (140-440) K/uL BMP 09/30/22 09:30 Sodium 132 L Potassium 3.7 Chloride 98 Carbon Dioxide 28 BUN 18 Creatinine 0.7 Glucose 129 H Calcium 8.8 Cardiac Enzymes 09/30/22 Range/Units 09:30 Troponin I 0.02 (0.01-0.04) ng/mL Liver Function 09/30/22 Range/Units 09:30 Total Bilirubin 2.0 H (0.1-1.5) mg/dL Direct Bilirubin 0.5 (0.0-0.5) mg/dL AST 26 (12-35) U/L ALT 16 (4-35) U/L Alkaline Phosphatase 132 (40-150) U/L Albumin 3.7 (3.3-5.0) g/dL Urine 09/30/22 Range/Units 08:45 Urine Color Yellow (Yellow) Urine Appearance Slightly Cloudy A (Clear) Urine pH 6.5 (5.0-8.5) Ur Specific [place] 1.010 (1.000-1.030) Urine Protein Negative (Negative) Urine Glucose (UA) Negative (Negative) Assessment and Plan Assessment and plan (1) Pneumonia: Problem comment: - likely community acquired - continue ceftriaxone and azithromycin, supportive cares Status: Acute (2) Weakness: Problem comment: - likely related to acute illness, will add troponin given cardiac history - will ask therapies to evaluate Status: Acute (3) Elevated bilirubin: Problem comment: - mild right upper quadrant tenderness on admission, will obtain ultrasound and follow bilirubin Status: Acute (4) Chronic heart failure with preserved ejection fraction: Problem comment: - history of CAD with NSTEMI in 2010; sees Dr. Leon of Cardiology. Last TTE 11/2021 Final Impressions: 1. Normal left ventricular size, mildly increased wall thickness, normal global systolic function, calculated EF of 70 %. 2. Right ventricular cavity size is normal, global systolic RV function is normal. 3. Moderately enlarged left atrium. 4. The aortic valve is trileaflet and sclerotic, no stenosis and trivial regurgitation. 5. The mitral valve is sclerotic, mild mitral regurgitation. Status: Acute (5) Bacteriuria: Problem comment: - culture pending Status: Acute Plan - per above - SCDs for ppx - likely back to previous living situation when medically stable/appropriate for discharge - plan of care reviewed with patient and daughter at bedside, questions answered
[2022-09-30] MEDS: AZITHROMYCIN 100 MG/ML inj 500 MG IVPB (12:33)
[2022-09-30] MEDS: 0.9 % SODIUM CHLORIDE 250 ml IV (12:33)
[2022-09-30 12:51] LABS: Troponin I* 0.03 ng/mL (0.01-0.04)
--- NOTE | 2022-09-30 14:00 | CRLHL7_ITS ---
For Patients: As a result of the Century Cures Act, medical imaging exams and procedure reports are released immediately into your electronic medical record. You may view this report before your referring provider. If you have questions, please contact your health care provider. INDICATION: Right upper quadrant abdomen pain and elevated bilirubin TECHNIQUE: Ultrasound abdomen limited. Sonographic images of the right upper quadrant were obtained using mayo-scale and color Doppler images. COMPARISON: Abdomen and pelvis CT 12/19/2020 FINDINGS: Liver: Normal in size and echotexture. No masses. No intrahepatic biliary dilatation. Gallbladder: Multiple gallstones with gallbladder wall upper normal. No pericholecystic fluid. Negative sonographic Powell`s sign. Common bile duct: 5 mm. Pancreas: Obscured by bowel gas without discrete lesion Right kidney: Measures 10.2 centimeters with 9 millimeter nonobstructing stone. Trace right perinephric fluid. Mild lobulation lower pole of right kidney. Vasculature: Proximal abdominal aorta and IVC are normal. IMPRESSION: 1. Multiple gallstones without sonographic evidence of cholecystitis. Normal diameter common duct. 2. Nonobstructing nephrolithiasis. Dictated by Joshua Miller MD @ 09/30/2022 4:00:27 PM (Electronically Signed)
--- NOTE | 2022-09-30 18:42 | PC.NURSE ---
Pt cooperative and tired during shift. Pt slept most of shift. Pt speaks Hmong document of refusal of lab manager signed. Pt?s Daughter interpreted in late morning when at hospital. Pt?s Daughter also available by phone. Pt had an ultrasound at 1400. The bond underwriter called Pt?s daughter who asked bond underwriter to use hospital lab manager service for procedure. Pt up with SBA- limited one assist. Pt will not use walker. Pt has consult with PT/OT scheduled. Pt stated that she is feeling better then when she first arrived at hospital.?
[2022-09-30] MEDS: ACETAMINOPHEN 325 MG TABLET 650 MG PO (20:34)
[2022-09-30] MEDS: SODIUM CHLORIDE 0.9 % (FLUSH) 10 ML SYRINGE 5 ML IVF (22:12)
--- NOTE | 2022-09-30 22:18 | PC.NURSE ---
End of Shift ([id number]): Patient pleasant and cooperative. Temp max 100.0. Patient c/o generalized pain and achiness, PRN Tylenol given x1. Tolerating regular diet with no nausea. Ipad translator and interpreter used.
[2022-10-01] VITALS (7 sets, daily range): BP systolic 113–122; BP diastolic 64–77; PULSE 61–72; RESP 16–20; TEMP 36.6–36.9; O2SAT 94–98
--- NOTE | 2022-10-01 05:34 | PC.NURSE ---
[id number] Pt slept during night, up to BR x1, furniture walking to br, SBA needed. Pt O2 sats 99% on RA during night, denies pain. Afebrile during this shift. at bedside to help interpret as well as I-pad
[2022-10-01 07:13] LABS: Basophils Absolute Auto 0.02 K/uL (0.00-0.30); Basophils Percent Auto 0.3 % (0.0-3.0); Eosinophils Absolute Auto 0.11 K/uL (0.00-0.50); Eosinophils Percent Auto 1.6 % (0.0-7.0); Hemoglobin* 11.7 gm/dL (12.0-16.0); Immature Granulocytes Abs Auto 0.03 K/uL (0.00-0.30); Immature Granulocytes Pct Auto 0.4 %; Lymphocytes Percent Auto 11.6 % (20-44); Mean Corpuscular HGB Conc 33 gm/dL (32-36); Mean Corpuscular Hemoglobin 29 pg (26-34); Mean Corpuscular Volume 88 fL (80-100); Monocytes Percent Auto 9.1 % (0.0-11.0); Platelet Count* 159 K/uL (140-440); RDW Coefficient of Variation % 13.6 % (11.5-15.5); Red Blood Count 4.08 m/uL (4.00-5.20)
[2022-10-01 07:34] LABS: Chloride* 103 mmol/L (96-114); Potassium* 3.5 mmol/L (3.6-5.1); Sodium* 132 mmol/L (135-149)
[2022-10-01 07:35] LABS: Albumin* 3.3 g/dL (3.3-5.0)
[2022-10-01 07:37] LABS: Creatinine* 0.6 mg/dL (0.5-1.5); Est. Creatinine Clearance* 48.14; Estimated Glomerular Filt Rate 92 ml/min; Slide Review Reflex No
[2022-10-01 07:38] LABS: Aspartate Amino Transferase* 22 U/L (12-35); Bilirubin Direct* 0.4 mg/dL (0.0-0.5); Blood Urea Nitrogen* 15 mg/dL (7-30); Calcium* 8.4 mg/dL (8.4-10.6); Carbon Dioxide* 24 mmol/L (20-32); Glucose* 109 mg/dL (60-115); Total Protein* 6.2 g/dL (6.0-8.3)
[2022-10-01 07:39] LABS: Alanine Aminotransferase* 15 U/L (4-35); Alkaline Phosphatase* 108 U/L (40-150)
[2022-10-01 07:49] LABS: Troponin I* 0.02 ng/mL (0.01-0.04)
[2022-10-01 07:59] LABS: C Reactive Protein* 14.8 mg/dL (0.5-1.0)
[2022-10-01] MEDS: CLOPIDOGREL 75 MG TABLET PO (08:40)
[2022-10-01] MEDS: METOPROLOL SUCCINATE (XL) 25 MG TAB 12.5 MG PO (08:40)
[2022-10-01] MEDS: SODIUM CHLORIDE 0.9 % (FLUSH) 10 ML SYRINGE 5 ML IVF (08:42)
--- NOTE | 2022-10-01 09:10 | P.IMPN_ITS ---
Progress Note: A&P Assessment and plan (1) Pneumonia: Problem details: - likely community acquired - continue ceftriaxone and azithromycin, supportive cares Status: Acute (2) Weakness: Problem details: - likely related to acute illness - troponin negative x2 - therapies following Status: Acute (3) Elevated bilirubin: Problem details: - mild right upper quadrant tenderness on admission, resolved - bilirubin within normal limits on 10/01, cholelithiasis without cholecystitis noted on 09/30 ultrasound Status: Acute (4) Chronic heart failure with preserved ejection fraction: Problem details: - history of CAD with NSTEMI in 2009; sees Dr. Leon of Cardiology. Last TTE 11/2021 Final Impressions: 1. Normal left ventricular size, mildly increased wall thickness, normal global systolic function, calculated EF of 70 %. 2. Right ventricular cavity size is normal, global systolic RV function is normal. 3. Moderately enlarged left atrium. 4. The aortic valve is trileaflet and sclerotic, no stenosis and trivial regurgitation. 5. The mitral valve is sclerotic, mild mitral regurgitation. Status: Acute (5) Bacteriuria: Problem details: - culture pending (currently exhibiting 30-40K CFU GNR) Status: Acute Plan - per above - likely home with family tomorrow - updated at bedside, questions answered Subjective Date Seen: 10/01/22 Interval history: No acute events overnight. Patient is seen this morning with at the bedside. She is continuing to feel better and has no concerns for the hospitalist team. Her abdominal ultrasound revealed cholelithiasis without cholecystitis; her bilirubin is normal today. She has no abdominal pain. Exam Narrative: Exam Narrative: GEN: Alert and laying comfortably in bed, nontoxic in appearance HEENT: EOMIs bilaterally, no scleral icterus CV: RRR, systolic murmur without concerning features heard best at left sternal R: Rales left base, no wheezing Ab: Soft and nontender on examination today Ext: wwp, no concerning edema Skin: No concerning skin lesions or rashes on exposed skin, no jaundice Const: Vital Signs, click to edit/add: Vital Signs - 24 hr 09/30/22 09:21 09/30/22 09:30 09/30/22 09:31 Temperature Pulse Rate 73 71 68 Pulse Rate [Right Pulse Oximeter] Respiratory Rate Blood Pressure 118/82 Blood Pressure [Le ft Arm] Blood Pressure [Ri ght Arm] Pulse Oximetry 99 100 99 Oxygen Delivery Me thod 09/30/22 09:32 09/30/22 09:47 09/30/22 10:00 Temperature Pulse Rate 69 73 74 Pulse Rate [Right Pulse Oximeter] Respiratory Rate Blood Pressure Blood Pressure [Le ft Arm] Blood Pressure [Ri ght Arm] Pulse Oximetry 100 98 93 Oxygen Delivery Me thod 09/30/22 10:01 09/30/22 10:15 09/30/22 10:30 Temperature Pulse Rate 76 74 76 Pulse Rate [Right Pulse Oximeter] Respiratory Rate Blood Pressure 120/73 Blood Pressure [Le ft Arm] Blood Pressure [Ri ght Arm] Pulse Oximetry 93 96 98 Oxygen Delivery Me thod 09/30/22 10:31 09/30/22 11:21 09/30/22 11:20 Temperature 97.8 F Pulse Rate 77 Pulse Rate [Right Pulse Oximeter] 75 Respiratory Rate 22 22 Blood Pressure 105/74 Blood Pressure [Le ft Arm] Blood Pressure [Ri ght Arm] 102/65 Pulse Oximetry 98 95 [facility] 09/30/22 15:00 09/30/22 15:00 09/30/22 19:00 Temperature 98.6 F 100.0 F H Pulse Rate Pulse Rate [Right Pulse Oximeter] 70 73 Respiratory Rate 22 22 20 Blood Pressure Blood Pressure [Le ft Arm] 107/82 Blood Pressure [Ri ght Arm] 95/54 L Pulse Oximetry 95 95 97 [facility] Room [facility] Room Air 09/30/22 22:15 09/30/22 23:00 09/30/22 23:00 Temperature 98.4 F 98.1 F Pulse Rate Pulse Rate [Right Pulse Oximeter] 56 L Respiratory Rate 16 16 Blood Pressure Blood Pressure [Le ft Arm] 106/58 L Blood Pressure [Ri ght Arm] Pulse Oximetry 99 99 Oxygen Delivery Me od Room Air Room Air 10/01/22 03:00 10/01/22 07:00 10/01/22 07:00 Temperature Pulse Rate Pulse Rate [Right Pulse Oximeter] 61 Respiratory Rate 16 16 16 Blood Pressure Blood Pressure [Le ft Arm] Blood Pressure [Ri ght Arm] Pulse Oximetry 97 Oxygen Delivery Me od Room Air 10/01/22 07:00 Temperature 98.3 F Pulse Rate Pulse Rate [Right Pulse Oximeter] 61 Respiratory Rate 16 Blood Pressure Blood Pressure [Le ft Arm] 113/77 Blood Pressure [Ri ght Arm] Pulse Oximetry 97 Oxygen Delivery Me thod Room Air Labs Labs: Laboratory Results - last 24 hr 09/30/22 09/30/22 09/30/22 08:19 08:45 09:10 WBC 13.74 H RBC 4.87 Hgb 13.9 Hct 43.6 MCV 90 MCH 29 MCHC 32 RDW Coeff of Mandi 13.8 Plt Count 184 Neut % (Auto) 88.6 H Lymph % (Auto) 6.5 L [place] % (Auto) 4.3 Eos % (Auto) 0.4 Baso % (Auto) 0.1 Neut # (Auto) 12.20 H Lymph # (Auto) 0.90 [place] # (Auto) 0.60 Eos # (Auto) 0.10 Baso # (Auto) 0.00 Diff Slide Review Acceptable Review INR 1.14 H APTT 27 Sodium Potassium Chloride Carbon Dioxide BUN Creatinine Estimated Creat Clear Estimated GFR Glucose Lactate Calcium Total Bilirubin Direct Bilirubin AST ALT Alkaline Phosphatase Troponin I C-Reactive Protein NT-Pro-B Natriuret Pep Total Protein Albumin Urine Color Yellow Urine Appearance Slightly Cloudy A Urine pH 6.5 Ur Specific [place] 1.010 Urine Protein Negative Urine Glucose (UA) Negative Urine Ketones Negative Urine Blood Trace-intact A Urine Nitrite Negative Urine Bilirubin Negative Urine Urobilinogen 2.0 A Ur Leukocyte Esterase Trace A Urine RBC 2-5 A Urine WBC 10-25 A Ur Squamous Epith Cells Few Urine Bacteria Few A SARS-CoV-2 (PCR) Negative SARS-CoV-2 Influenza Type A (PCR) Negative PCR FLU A Influenza Type B (PCR) Negative PCR FLU B RSV (PCR) Negative PCR RSV 09/30/22 09/30/22 10/01/22 09:30 09:30 06:48 WBC 7.00 RBC 4.08 Hgb 11.7 L Hct 36.0 MCV 88 MCH 29 MCHC 33 RDW Coeff of Mandi 13.6 Plt Count 159 Neut % (Auto) 77.0 H Lymph % (Auto) 11.6 L [place] % (Auto) 9.1 Eos % (Auto) 1.6 Baso % (Auto) 0.3 Neut # (Auto) 5.40 Lymph # (Auto) 0.80 L [place] # (Auto) 0.60 Eos # (Auto) 0.11 Baso # (Auto) 0.02 Diff Slide Review INR APTT Sodium 132 L 132 L Potassium 3.7 3.5 L Chloride 98 103 Carbon Dioxide 28 24 BUN 18 15 Creatinine 0.7 0.6 Estimated Creat Clear 48.14 Estimated GFR 88 92 Glucose 129 H 109 Lactate 1.6 Calcium 8.8 8.4 Total Bilirubin 2.0 H 1.0 Direct Bilirubin 0.5 0.4 AST 26 22 ALT 16 15 Alkaline Phosphatase 132 108 Troponin I 0.03 0.02 0.02 C-Reactive Protein 20.3 H 14.8 H NT-Pro-B Natriuret Pep 1190 Total Protein 6.7 6.2 Albumin 3.7 3.3 Urine Color Urine Appearance Urine pH Ur Specific [place] Urine Protein Urine Glucose (UA) Urine Ketones Urine Blood Urine Nitrite Urine Bilirubin Urine Urobilinogen Ur Leukocyte Esterase Urine RBC Urine WBC Ur Squamous Epith Cells Urine Bacteria SARS-CoV-2 (PCR) Influenza Type A (PCR) Influenza Type B (PCR) RSV (PCR)
[2022-10-01] MEDS: POTASSIUM BICARB 25 MEQ EFFERVESCENT TAB PO ×2 (10:22→12:49)
[2022-10-01] MEDS: AZITHROMYCIN 250 MG TABLET 500 MG PO (10:23)
[2022-10-01] MEDS: cefTRIAXone 1 GM in 0.9 % SODIUM CHLORIDE Mini-bag 100 ML IVPB (10:24)
--- NOTE | 2022-10-01 19:39 | PC.NURSE ---
End of Shift ([id number]): Patient pleasant and cooperative. Afebrile this shift. Patient denies pain but still feels a little weak. Tolerating regular diet with no nausea. Ipad rail equipment operator refused, and dtr in room to translate.
[2022-10-02] MEDS: SODIUM CHLORIDE 0.9 % (FLUSH) 10 ML SYRINGE 5 ML IVF (00:02)
[2022-10-02 03:48] VITALS: RESP 18
[2022-10-02] MEDS: ACETAMINOPHEN 325 MG TABLET 650 MG PO (05:39)
--- NOTE | 2022-10-02 05:51 | PC.NURSE ---
[id number]: Patient cooperative with cares. Declined seafood fisherman service. at bedside and interprets. Tylenol administered for L. leg pain. Denies N/V, SOB, CP. Independent in room with assistance from spouse.
[2022-10-02 06:42] LABS: Basophils Absolute Auto 0.01 K/uL (0.00-0.30); Basophils Percent Auto 0.2 % (0.0-3.0); Hematocrit 36.1 % (33.0-51.0); Hemoglobin* 11.7 gm/dL (12.0-16.0); Immature Granulocytes Abs Auto 0.02 K/uL (0.00-0.30); Immature Granulocytes Pct Auto 0.4 %; Lymphocytes Percent Auto 7.9 % (20-44); Mean Corpuscular HGB Conc 32 gm/dL (32-36); Mean Corpuscular Hemoglobin 28 pg (26-34); Mean Corpuscular Volume 87 fL (80-100); Monocytes Percent Auto 2.8 % (0.0-11.0); Neutrophils Percent Auto 88.7 % (42.0-72.0); Platelet Count* 193 K/uL (140-440); RDW Coefficient of Variation % 13.2 % (11.5-15.5); Red Blood Count 4.14 m/uL (4.00-5.20); White Blood Count* 4.57 K/uL (4.50-11.00)
[2022-10-02 07:21] LABS: Slide Review Reflex No
[2022-10-02 07:23] LABS: Albumin* 3.6 g/dL (3.3-5.0)
[2022-10-02 07:24] LABS: Chloride* 105 mmol/L (96-114); Potassium* 4.4 mmol/L (3.6-5.1); Sodium* 134 mmol/L (135-149)
[2022-10-02 07:26] LABS: Aspartate Amino Transferase* 23 U/L (12-35); Bilirubin Direct* 0.3 mg/dL (0.0-0.5); Bilirubin Total* 0.6 mg/dL (0.1-1.5); Carbon Dioxide* 23 mmol/L (20-32); Creatinine* 0.5 mg/dL (0.5-1.5); Est. Creatinine Clearance* 48.14; Estimated Glomerular Filt Rate 96 ml/min; Total Protein* 6.9 g/dL (6.0-8.3)
[2022-10-02 07:27] LABS: Alanine Aminotransferase* 18 U/L (4-35); Alkaline Phosphatase* 110 U/L (40-150); Blood Urea Nitrogen* 12 mg/dL (7-30); Calcium* 8.9 mg/dL (8.4-10.6); Glucose* 178 mg/dL (60-115)
--- NOTE | 2022-10-02 08:03 | P.DS_ITS ---
DS: Providers Provider Date Seen: 10/02/22 Date of admission: 09/30/22 12:17 Primary care physician: John San MD Admitting Clinician: Robert Santoyo MD Consults: PT, OT Attending Physician on discharge: Kimberly Aldridge MD Date of Discharge: 10/02/22 DS: Diagnosis Discharge Diagnosis (1) Pneumonia: Status: Acute Problem details: - likely community acquired - treated with ceftriaxone and azithromycin while inpatient, did not require supplemental oxygen (2) Weakness: Status: Acute Problem details: - related to acute illness, significantly improved during stay - troponin negative x2 (3) Elevated bilirubin: Status: Acute Problem details: - noted on admission, resolved - cholelithiasis without cholecystitis noted on 09/30 ultrasound, patient remained asymptomatic during stay (4) Chronic heart failure with preserved ejection fraction: Status: Acute Problem details: - history of CAD with NSTEMI in 2009; sees Dr. Leon of Cardiology. Last TTE 11/2021 Final Impressions: 1. Normal left ventricular size, mildly increased wall thickness, normal global systolic function, calculated EF of 70 %. 2. Right ventricular cavity size is normal, global systolic RV function is boom l. 3. Moderately enlarged left atrium. 4. The aortic valve is trileaflet and sclerotic, no stenosis and trivial regurgitation. 5. The mitral valve is sclerotic, mild mitral regurgitation. (5) Bacteriuria: Status: Acute Problem details: - 30-40K CFU Klebsiella, asymptomatic DS: Summary Hospital Course Hospital Course: 77-year-old female with history of coronary artery disease, admitted to the hospital for community-acquired pneumonia in the setting of weakness and generalized body aches. Sendy was treated with ceftriaxone and azithromycin improved significantly during hospital stay; she never required supplemental oxygen. Comorbidities remained stable - of note, blood pressure noted to be low, so home lisinopril dose held during stay and on discharge. She will have a PCP follow-up for this. Sendy was noted to have mild RUQ tenderness with elevated bilirubin on admission, both resolved and ultrasound exhibited cholelithiasis without evidence of cholecystitis. Patient did not have any recurrence of pain throughout stay and tolerated p.o. intake well. was medically appropriate for discharge on hospital day 2. We will discharge her home on doxycycline with close PCP follow-up. Patient and verbalized understanding of plan. Status at Discharge Functional status at discharge: independent ambulation Overall status at discharge: patient is progressing back to baseline Time Spent with Patient Time attestation: Total time spent providing and/or coordinating discharge services: Time spent: Greater than 30 minutes Specific discharge activities: Medication reconciliation, care coordination, documentation, updates to patient and family Exam Narrative: Exam Narrative: GEN: Alert and sitting comfortably in bed HEENT: EOMIs bilaterally, no scleral icterus CV: RRR, soft systolic murmur without concerning features R: Air movement adequate, rales left base continue to improve Ext: wwp, no concerning edema Skin: No concerning skin lesions or rashes on exposed skin Neuro: Nonfocal Const: Vital Signs, click to edit/add: Vital Signs - 24 hr 10/01/22 11:00 10/01/22 15:00 10/01/22 15:00 Temperature 98.0 F Pulse Rate [Right Pulse Oximeter] 66 66 Respiratory Rate 16 16 16 Blood Pressure [Le ft Arm] Blood Pressure [Ri ght Arm] 122/64 Pulse Oximetry 98 98 Oxygen Delivery Me thod Room Air Room Air 10/01/22 15:00 10/01/22 19:41 10/01/22 23:00 Temperature 98.0 F 98.5 F Pulse Rate [Right Pulse Oximeter] 66 72 Respiratory Rate 16 20 20 Blood Pressure [Le ft Arm] 113/77 Blood Pressure [Ri ght Arm] 122/64 121/69 Pulse Oximetry 98 95 95 Oxygen Delivery Me thod Room Air Room Air Room Air 10/01/22 23:58 10/02/22 03:48 Temperature 97.8 F Pulse Rate [Right Pulse Oximeter] 66 Respiratory Rate 18 18 Blood Pressure [Le ft Arm] Blood Pressure [Ri ght Arm] 115/77 Pulse Oximetry 94 Oxygen Delivery Me thod Room Air DS: Data Data Completed and Pending Labs on day of discharge: Labs from last 24 hours 10/02/22 10/01/22 06:28 06:48 WBC 4.57 RBC 4.14 Hgb 11.7 L Hct 36.1 MCV 87 MCH 28 MCHC 32 RDW Coeff of Mandi 13.2 Plt Count 193 Neut % (Auto) 88.7 H Lymph % (Auto) 7.9 L [place] % (Auto) 2.8 Eos % (Auto) 0.0 Baso % (Auto) 0.2 Neut # (Auto) 4.10 Lymph # (Auto) 0.40 L [place] # (Auto) 0.10 Eos # (Auto) 0.00 Baso # (Auto) 0.01 Sodium 134 L Potassium 4.4 Chloride 105 Carbon Dioxide 23 BUN 12 Creatinine 0.5 Estimated Creat Clear 48.14 Estimated GFR 96 Glucose 178 H Calcium 8.9 Total Bilirubin 0.6 Direct Bilirubin 0.3 AST 23 ALT 18 Alkaline Phosphatase 110 Total Protein 6.9 Albumin 3.6 TSH 1.850 Preliminary micro results at discharge 09/30/22 09:10 Blood Culture - Preliminary Blood NO GROWTH AFTER 24 HOURS 09/30/22 09:30 Blood Culture - Preliminary Blood NO GROWTH AFTER 24 HOURS Discharge Plan Discharge Disposition: Home, Self-Care Date of Admission: 09/30/22 12:17 Attending Provider on Discharge: Kimberly Aldridge Primary Care Provider: John San Condition: Improved Anticipated Discharge Date/Time: 10/02/22 07:58 Discharge Medications: New doxycycline hyclate 100 mg capsule 100 mg PO BID Qty: 10 0RF Continued clopidogrel 75 mg tablet 75 mg PO DAILY furosemide 20 mg tablet 20 mg PO DAILY metoprolol succinate 25 mg tablet extended release 24 hr 12.5 mg PO DAILY Discontinued lisinopril 2.5 mg tablet 2.5 mg PO DAILY Discharge Orders: Discharge Order (Routine); Ordered 10/02/22 Ordered By: Kimberly Aldridge Patient Education: Doxycycline (By mouth), Community Acquired Pneumonia (DC) Additional Instructions: Antibiotics sent to [facility] - take these twice per day for 5 more days. We are STOPPING your Lisinopril because your Blood Pressure has been low, the rest of your medications will stay the same. See Dr. San as scheduled for a hospital followup and BP check. Activity Level: No strenuous activity Discharge Diet: Heart Healthy (2 gm sodium, low fat) Follow Up Appointments: John San MD [Primary Care Provider] - (7-10 days for hospital d/c followup) Forms: [facility] Info Instructions
[2022-10-02 08:04] VITALS: BP 105/74; PULSE 77; RESP 18; TEMP 36.6
[2022-10-02 08:30] VITALS: BP 116/75; PULSE 59; RESP 16; TEMP 35.8; O2SAT 97
[2022-10-02] MEDS: CLOPIDOGREL 75 MG TABLET PO (08:41)
[2022-10-02] MEDS: METOPROLOL SUCCINATE (XL) 25 MG TAB 12.5 MG PO (08:41)
[2022-10-02 08:53] VITALS: RESP 16; O2SAT 97
[2022-10-02] MEDS: AZITHROMYCIN 250 MG TABLET 500 MG PO (11:05)
== END 2022-10-02 11:25 | disposition home or self-care (01) | DRG 194 ==
LOC: ED 09:23 → MEDSURG 10:48
PROVIDERS: Admitting Provider Family Medicine; Emergency Provider Family Medicine; PCP Family Medicine; Visit Provider Family Medicine
DX: J18.9 Pneumonia, unspecified organism (principal); I50.32 Chronic diastolic (congestive) heart failure; R82.71 Bacteriuria; B96.1 Klebsiella pneumoniae [K. pneumoniae] as the cause of diseases classified elsewhere; R53.1 Weakness; I27.20 Pulmonary hypertension, unspecified; I25.10 Atherosclerotic heart disease of native coronary artery without angina pectoris; I25.2 Old myocardial infarction; I08.3 Combined rheumatic disorders of mitral, aortic and tricuspid valves; Z95.1 Presence of aortocoronary bypass graft; K80.20 Calculus of gallbladder without cholecystitis without obstruction; E78.5 Hyperlipidemia, unspecified
CPT/HCPCS: 36415; 71045; 76705; 80048; 80076; 81001; 83605; 83880; 84443; 84484; 85025; 85610; 85730; 86140; 87040; 87086; 87186; 87631; 93005; 94761; 97110; 97116; 97161; 97165; 97535; 99211; 99285; A9270; J0456; J0696; J2270; J7050; J7120

== ENCOUNTER 2022-10-29 17:26 | Emergency (ER) | payer MEDICARE, MEDICAID, SELFPAY ==
[2022-10-29] VITALS (13 sets, daily range): BP systolic 97–107; BP diastolic 51–60; PULSE 62–70; RESP 20–24; TEMP 36.3; O2SAT 93–96; BMI 20.9
--- NOTE | 2022-10-29 17:59 | ED_ITS ---
HPI - Chest Pain General Time Seen by Provider: 18:00 Date Seen: 10/29/22 Chief Complaint: Chest Pain Stated Complaint: Chest Pain Time Seen by Provider: 10/29/22 17:59 Source: patient, family, RN notes reviewed and old records reviewed Mode of arrival: ambulatory Limitations: no limitations History of Present Illness HPI narrative: Patient is a 69-year-old female brought in by her son who is interpreting for her. Around 3:00 a.m. today she started with a burning area in her chest. She tried to sublingual nitroglycerin it did not help. She tried this about half are after it starting. It is described as a burning and she points right to her epigastric area. She has maybe short of breath. It is a bit different than what she has felt with her prior cardiac issues. She has had stents placed for prior underlying ischemia. No nausea vomiting. No fevers or chills. She still has her gallbladder, no prior abdominal history. Her chart lists a 3 vessel C ABG in 2009. 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 Leon. Did review her records. She was in the ER on 09/30/2022 and ended up hospitalized until 10/02/2022. There was pneumonia on chest x-ray which was treated with Rocephin in [facility]. Her C-reactive protein was 20.3 at that time. She did end up having an abdominal ultrasound done for an elevated bilirubin. There was cholelithiasis without any evidence of acute cholecystitis. This certainly does make me more suspicious of biliary disease and possible pancreatitis. Pertinent past history: coronary artery disease Related Data Home Medications Medication Instructions Recorded Confirmed clopidogrel 75 mg tablet 75 mg PO DAILY 07/24/22 10/12/22 furosemide 20 mg tablet 20 mg PO DAILY 07/24/22 10/12/22 metoprolol succinate 25 mg 12.5 mg PO DAILY 09/30/22 10/12/22 tablet,extended release 24 hr aspirin 81 mg tablet,delayed 81 mg PO DAILY 10/12/22 10/12/22 release Previous Rx's Medication Instructions Recorded hydrocodone 5 mg-acetaminophen 325 1 tab PO Q6H PRN pain #10 tabs 10/29/22 mg tablet Allergies Allergy/AdvReac Type Severity Reaction Status Date / Time No Known Allergies Allergy Verified 10/12/22 10:15 Review of Systems Status of ROS Reports: 6 or more systems reviewed and unremarkable except as noted in History and below PFSH PFS Medical History COVID-19 virus infection ?U07.1 - COVID-19 (ICD-10) 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.1 - Rheumatic tricuspid insufficiency (ICD-10) Pulmonary hypertension ?I27.20 - Pulmonary hypertension, unspecified (ICD-10) Mitral valve insufficiency ?I34.0 - Nonrheumatic mitral (valve) insufficiency (ICD-10) Left ventricular hypertrophy ?I51.7 - Cardiomegaly (ICD-10) Hyperlipidemia ?E78.5 - Hyperlipidemia, unspecified (ICD-10) History of myocardial infarction (02/04/10) ?I25.2 - Old myocardial infarction (ICD-10) History of migraine ?Z86.69 - Personal history of other diseases of the nervous system and sense organs (ICD-10) Coronary artery disease ?I25.10 - Atherosclerotic heart disease of enterprise coronary artery without angina pectoris (ICD-10) Chronic heart failure with preserved ejection fraction ?I50.32 - Chronic diastolic (congestive) heart failure (ICD-10) Surgical History History of coronary artery bypass surgery (2009) ?Z95.1 - Presence of aortocoronary bypass graft (ICD-10) History of cataract extraction (07/2017) ?Z98.49 - Cataract extraction status, unspecified eye (ICD-10) Social History Narrative: Grew up in [facility], in the since the 1970s. Hmong is primary language. Lives with daughter Vishal and family (near [place], they have a farm near [place]). Had 10 children, 4 living children now. 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 Nonsmoker, no ETOH. Vishal would be medical decision maker if needed; requests Full Code status. Highest level of school completed/degree received: never attended/kindergarten only Smoking Status: Never smoker How often do you have a drink containing alcohol: never AUDIT-C Alcohol total score: 0 Non-prescribed substance use: denies use Caffeine: No Little interest or pleasure in doing things: not at all Feeling down, depressed, or hopeless: not at all service: No Exam Const Vital Signs, click to edit/add: Vital Signs - 24 hr 10/29/22 17:48 10/29/22 18:07 10/29/22 19:09 Temperature 97.3 F L Pulse Rate 69 Pulse Rate [Pulse Oximeter] 62 Respiratory Rate 24 Blood Pressure Blood Pressure [Left Upper Arm] 101/56 L Pulse Oximetry 95 96 93 Oxygen Delivery Method Room Air 10/29/22 19:15 10/29/22 19:30 10/29/22 19:31 Temperature Pulse Rate 68 68 69 Pulse Rate [Pulse Oximeter] Respiratory Rate Blood Pressure 107/60 Blood Pressure [Left Upper Arm] Pulse Oximetry 93 94 95 Oxygen Delivery Method 10/29/22 19:45 10/29/22 20:00 10/29/22 20:05 Temperature Pulse Rate 69 70 67 Pulse Rate [Pulse Oximeter] Respiratory Rate Blood Pressure Blood Pressure [Left Upper Arm] Pulse Oximetry 94 94 96 Oxygen Delivery Method 10/29/22 20:15 10/29/22 20:30 10/29/22 20:34 Temperature Pulse Rate 65 68 68 Pulse Rate [Pulse Oximeter] Respiratory Rate Blood Pressure Blood Pressure [Left Upper Arm] Pulse Oximetry 93 94 94 Oxygen Delivery Method Common normals: no apparent distress General appearance: cooperative, comfortable and well kempt Nutritional appearance: overweight Other: Line on the bed keeps her eyes closed. Does point to the epigastric area where her pain is. Otherwise is resting in appears to be comfortable. [facility] Common normals: normocephalic, head/scalp atraumatic, hearing grossly normal bilaterally and external nose normal Head and scalp: normocephalic and atraumatic Nose: external nose normal Neck & C-Spine Common normals: full ROM, no lymphadenopathy and supple Chest Common normals: inspection of chest normal and palpation of chest normal Resp Common normals: normal respiratory effort, no retractions, no use of accessory muscles and clear to auscultation bilaterally Auscultation: clear to auscultation bilaterally Cardio Common normals: regular rate, regular rhythm, S1 normal heart sound, S2 normal heart sound, no gallops, no clicks and no murmurs Rate: regular rate Rhythm: regular rhythm Heart sounds: S1 normal and S2 normal GI Common normals: Normal to inspection, nondistended, normoactive bowel sounds present, soft to palpation, no hepatosplenomegaly and no masses Palpation: soft and no hepatosplenomegaly Other: Has upper abdominal pain extending from left upper quadrant to right upper quadrant with the epigastric area being the worst. No rebound or guarding. Psych Appearance: well kempt Course Course Hospital Course: Will need to compare patient's EKG to prior ones. Her pain is epigastric in she is tender on her abdominal exam. Worry about other etiologies like GI issues including gallbladder, pancreatitis, peptic ulcer disease. She would like some pain management. We will continue to rule out cardiac issues. It is over 3 hours from onset of symptoms. Thus if her troponin is normal, this is not likely to be cardiac for her. She will be monitored on cardiac monitoring and pulse oximetry while here nonetheless. Reevaluation(s) Reevaluation #1: Have reviewed with the son that we should repeat the ultrasound in see if there is any significant changes. He was wondering if they could go home and come back into an ultrasound at a later date which I explained I could not coordinate for him. He does understand. His mom's pain did improve with the morphine. She is resting now. Thus, we are going to proceed with right upper quadrant ultrasound and just confirm the troponin is not going up. Time: 19:32 Reevaluation #2: Patient's daughter is now here. Have reviewed the ultrasound. There is still cholelithiasis without any evidence of cholecystitis. Reviewed that there was a benign right kidney cyst. Patient is still feeling better. Morphine resolve the pain. Reviewed with them that I had talked to our surgeon in follow-up. She is recommending an EGD just to ensure no underlying gastric cause for issues. It helps them to rule out other etiologies and helps them to decipher whether cholecystectomy is truly needed. I will place that order. Time: 22:22 Consultations Consultation #1: Spoke with the surgeon Dr. Osman regarding this case. She agrees if this is not her heart, is likely either her stomach or her gallbladder. We will repeat her right upper quadrant ultrasound. I will do a follow-up troponin just to ensure that it is not rising. I will see how the patient has tolerated the morphine and if it improved her pain. Time: 19:21 Vital Signs Vital signs: Initial Vital Signs Temperature 97.3 F L 05/04/23 17:48 Temperature Source Temporal Artery Scan 10/29/22 17:48 Pulse Rate 62 10/29/22 17:48 Respiratory Rate 24 10/29/22 17:48 Blood Pressure 101/56 L 10/29/22 17:48 Blood Pressure Mean 71 10/29/22 17:48 Blood Pressure Position Semi-Fowlers 10/29/22 17:48 Pulse Oximetry 95 10/29/22 17:48 Oxygen Delivery Method Room Air 10/29/22 17:48 Vital Signs Temperature 97.3 F L 10/29/22 17:48 Pulse Rate 62 10/29/22 17:48 Respiratory Rate 24 10/29/22 17:48 Blood Pressure 101/56 L 10/29/22 17:48 Pulse Oximetry 95 10/29/22 17:48 Oxygen Delivery Method Room Air 10/29/22 17:48 Temperature 97.3 F L 10/29/22 17:48 Pulse Rate 68 10/29/22 20:34 Respiratory Rate 24 10/29/22 17:48 Blood Pressure 107/60 10/29/22 19:31 Pulse Oximetry 94 10/29/22 20:34 Oxygen Delivery Method Room Air 10/29/22 17:48 MDM - Chest Pain Lab Data Attestation: I reviewed the patient's lab results. Labs: Lab Results 10/29/22 10/29/22 Range/Units 18:25 19:45 WBC 5.06 (4.50-11.00) K/uL RBC 4.09 (4.00-5.20) m/uL Hgb 11.3 L (12.0-16.0) gm/dL Hct 36.2 (33.0-51.0) % MCV 89 (80-100) fL MCH 28 (26-34) pg MCHC 31 L (32-36) gm/dL RDW Coeff of Mandi 13.4 (11.5-15.5) % Plt Count 210 (140-440) K/uL Neut % (Auto) 57.9 (42.0-72.0) % Lymph % (Auto) 27.3 (20-44) % Mckenzie % (Auto) 9.3 (0.0-11.0) % Eos % (Auto) 4.7 (0.0-7.0) % Baso % (Auto) 0.6 (0.0-3.0) % Neut # (Auto) 2.93 (1.7-7.0) K/uL Lymph # (Auto) 1.38 (0.90-2.90) K/uL Mckenzie # (Auto) 0.50 (0.00-0.90) K/UL Eos # (Auto) 0.24 (0.00-0.50) K/uL Baso # (Auto) 0.03 (0.00-0.30) K/uL Sodium 137 (135-149) mmol/L Potassium 4.0 (3.6-5.1) mmol/L Chloride 102 (96-114) mmol/L Carbon Dioxide 28 (20-32) mmol/L BUN 20 (7-30) mg/dL Creatinine 0.7 (0.5-1.5) mg/dL Estimated Creat Clear 33.20 Estimated GFR 88 ml/min Glucose 131 H (60-115) mg/dL Lactate 1.4 (0.5-1.9) mmol/L Calcium 9.0 (8.4-10.6) mg/dL Total Bilirubin 0.7 (0.1-1.5) mg/dL AST 25 (12-35) U/L ALT 16 (4-35) U/L Alkaline Phosphatase 134 (40-150) U/L Troponin I 0.02 (0.01-0.04) ng/mL C-Reactive Protein 0.6 (0.5-1.0) mg/dL NT-Pro-B Natriuret Pep 811 pg/mL Total Protein 6.7 (6.0-8.3) g/dL Albumin 3.9 (3.3-5.0) g/dL Lipase 47 (23-300) U/L POC Troponin I 0.01 0.00 L (0.01-0.04) ng/ml Imaging Data Chest x-ray: Attestation: I have reviewed the pertinent imaging results. Radiologist's impression: Patient: PILAR MESSINA Facility:?[facility] Patient ID:?[id number] Site Patient ID:?[id number]. Site :?[id number] Study:?XRay Chest Portable 1v-10/29/2022 6:28:41 PM Ordering Physician:Anant Higginbotham Final Report: INDICATION: Chest pain. TECHNIQUE: Chest 1 views. COMPARISON: September 30, 2022. FINDINGS: Cardiovascular and mediastinum: Cardiomediastinal silhouette is within normal limits. Lungs and pleural spaces: Lungs are clear. No sign of pleural effusion. No pneumothorax. Bones and soft tissues: No significant findings. Stable median sternotomy wires. IMPRESSION: No acute cardiopulmonary process identified. Dictated by Eyal Foss MD @ 10/29/2022 7:57:36 PM (Electronic Signature) US - abdomen: Attestation: I have reviewed the pertinent imaging results. Radiologist's impression: Patient: PILAR MESSINA Facility:?[facility] Patient ID:?[id number] Site Patient ID:?[id number]. Site :?[id number] Study:?US Abdomen -10/29/2022 8:59:01 PM Ordering Physician:Anant Higginbotham Final Report: INDICATION: UPPER ABD PAIN HISTORY: Upper abdominal pain. COMPARISON: 09/30/2022. CT of the abdomen and pelvis, 12/19/2020. TECHNIQUE: Ultrasound of the abdomen limited. FINDINGS: The pancreas is normal where visualized. There is no peripancreatic fluid senia ection. Abdominal aorta proximally is normal. No solid hepatic mass. No dilation of intrahepatic biliary radicals. No perihepatic ascites. Normal caliber main portal vein. Stones in the gallbladder lumen. No secondary signs for cholecystitis. Gallbladder wall measures 2.5 mm. Common bile duct measures 7-8 mm. The right kidney measures 8.9 cm in length. There is no hydronephrosis, solid mass, or perinephric fluid collection. There is a benign appearing cyst in the right kidney, measuring 12 x 10 x 10 mm. IMPRESSION: 1. Cholelithiasis. No secondary signs for cholecystitis. 2. Normal caliber biliary tree. Dictated by Wil Kee MD @ 10/29/2022 9:49:43 PM Dictated by: Wil Kee MD @ 10/29/2022 21:49:53 (Electronic Signature) ECG Data Attestation: I personally reviewed and interpreted this ECG as follows: (Sinus rhythm, 65 beats per minute. Incomplete right bundle branch block. Flipped T- waves in the anterior precordial leads and inferiorly in 3 and AVF. QT corrected 476 milliseconds.) ECG interpretation date: 10/29/22 ECG interpretation time: 18:16 Prior ECG tracings: available for review (Compared to EKG from 09/30/2022, T-waves less prominent on current EKG.) Ischemic changes: t wave inversions Critical Care Time Critical Care Time Critical Care Time: No Discharge Plan Discharge Clinical Impression: Cholelithiasis, Abdominal pain, acute, epigastric Patient Disposition: Home, Self-Care Condition: Stable Instructions: Gallstones (ED) Additional Instructions: Need to call the clinic to get scheduled to see 1 of the surgeons in follow-up, phone number is [phone]. Is been requested that you get scheduled for an EGD to rule out any underlying gastric pathology such as ulcer disease. They will contact you with an appointment time, I have placed an order tonight. Can use the pain medicine I prescribed for recurrent pain. You want to try to avoid fatty foods or foods that seem to precipitate your abdominal pain. If you develop severe abdominal pain, have fever or vomiting with it, do need to return to the ER for further evaluation. Activity Level: Activity as Tolerated Discharge Diet: Low Fat/Low Cholesterol Prescriptions: New hydrocodone-acetaminophen 5-325 mg tablet 1 tab PO Q6H PRN (Reason: pain) Qty: 10 0RF No Action aspirin 81 mg tablet,delayed release (DR/EC) 81 mg PO DAILY clopidogrel 75 mg tablet 75 mg PO DAILY furosemide 20 mg tablet 20 mg PO DAILY metoprolol succinate 25 mg tablet extended release 24 hr 12.5 mg PO DAILY Follow Up/Referrals: John San MD [Primary Care Provider] - Stand Alone Forms: [employer] Info Instructions
--- NOTE | 2022-10-29 18:07 | CRLHL7_ITS ---
For Patients: As a result of the Cures Act, medical imaging exams and procedure reports are released immediately into your electronic medical record. You may view this report before your referring provider. If you have questions, please contact your health care provider. INDICATION: Chest pain. TECHNIQUE: Chest 1 views. COMPARISON: September 30, 2022. FINDINGS: Cardiovascular and mediastinum: Cardiomediastinal silhouette is within normal limits. Lungs and pleural spaces: Lungs are clear. No sign of pleural effusion. No pneumothorax. Bones and soft tissues: No significant findings. Stable median sternotomy wires. IMPRESSION: No acute cardiopulmonary process identified. Dictated by Eyal Foss MD @ 10/29/2022 7:57:36 PM (Electronically Signed)
[2022-10-29 18:34] LABS: Lactate* 1.4 mmol/L (0.5-1.9)
[2022-10-29] MEDS: ONDANSETRON 2 MG/ML inj 4 MG IVP (18:39)
[2022-10-29] MEDS: MORPHINE 2 MG/ML inj IVP (18:39)
[2022-10-29 18:47] LABS: Troponin, Point-of-Care* 0.01 ng/ml (0.01-0.04)
[2022-10-29 18:57] LABS: Basophils Absolute Auto 0.03 K/uL (0.00-0.30); Basophils Percent Auto 0.6 % (0.0-3.0); Eosinophils Absolute Auto 0.24 K/uL (0.00-0.50); Eosinophils Percent Auto 4.7 % (0.0-7.0); Hematocrit 36.2 % (33.0-51.0); Hemoglobin* 11.3 gm/dL (12.0-16.0); Immature Granulocytes Abs Auto 0.01 K/uL (0.00-0.30); Immature Granulocytes Pct Auto 0.2 %; Lymphocytes Absolute Auto 1.38 K/uL (0.90-2.90); Lymphocytes Percent Auto 27.3 % (20-44); Mean Corpuscular HGB Conc 31 gm/dL (32-36); Mean Corpuscular Hemoglobin 28 pg (26-34); Mean Corpuscular Volume 89 fL (80-100); Monocytes Percent Auto 9.3 % (0.0-11.0); Neutrophils Absolute Auto 2.93 K/uL (1.7-7.0); Neutrophils Percent Auto 57.9 % (42.0-72.0); Platelet Count* 210 K/uL (140-440); RDW Coefficient of Variation % 13.4 % (11.5-15.5); Red Blood Count 4.09 m/uL (4.00-5.20); White Blood Count* 5.06 K/uL (4.50-11.00)
[2022-10-29 18:58] LABS: Albumin* 3.9 g/dL (3.3-5.0); Chloride* 102 mmol/L (96-114); Sodium* 137 mmol/L (135-149)
[2022-10-29 19:00] LABS: Creatinine* 0.7 mg/dL (0.5-1.5); Estimated Glomerular Filt Rate 88 ml/min
[2022-10-29 19:01] LABS: Alkaline Phosphatase* 134 U/L (40-150); Aspartate Amino Transferase* 25 U/L (12-35); Bilirubin Total* 0.7 mg/dL (0.1-1.5); Carbon Dioxide* 28 mmol/L (20-32); Lipase* 47 U/L (23-300); Total Protein* 6.7 g/dL (6.0-8.3)
[2022-10-29 19:02] LABS: Alanine Aminotransferase* 16 U/L (4-35); Blood Urea Nitrogen* 20 mg/dL (7-30); Glucose* 131 mg/dL (60-115)
[2022-10-29 19:03] LABS: Slide Review Reflex No
[2022-10-29 19:04] LABS: C Reactive Protein* 0.6 mg/dL (0.5-1.0)
[2022-10-29 19:13] LABS: Troponin I* 0.02 ng/mL (0.01-0.04)
[2022-10-29 19:14] LABS: NT Pro B Type NatriureticPept* 811 pg/mL
--- NOTE | 2022-10-29 19:22 | CRLHL7_ITS ---
For Patients: As a result of the Century Cures Act, medical imaging exams and procedure reports are released immediately into your electronic medical record. You may view this report before your referring provider. If you have questions, please contact your health care provider. INDICATION: UPPER ABD PAIN HISTORY: Upper abdominal pain. COMPARISON: 09/30/2022. CT of the abdomen and pelvis, 12/19/2020. TECHNIQUE: Ultrasound of the abdomen limited. FINDINGS: The pancreas is normal where visualized. There is no peripancreatic fluid collection. Abdominal aorta proximally is normal. No solid hepatic mass. No dilation of intrahepatic biliary radicals. No perihepatic ascites. Normal caliber main portal vein. Stones in the gallbladder lumen. No secondary signs for cholecystitis. Gallbladder wall measures 2.5 mm. Common bile duct measures 7-8 mm. The right kidney measures 8.9 cm in length. There is no hydronephrosis, solid mass, or perinephric fluid collection. There is a benign appearing cyst in the right kidney, measuring 12 x 10 x 10 mm. IMPRESSION: 1. Cholelithiasis. No secondary signs for cholecystitis. 2. Normal caliber biliary tree. Dictated by Wil Kee MD @ 10/29/2022 9:49:43 PM Dictated by: Wil Kee MD @ 10/29/2022 21:49:53 (Electronically Signed)
== END 2022-10-29 22:56 | disposition home or self-care (01) ==
PROVIDERS: Emergency Provider Family Medicine; PCP Family Medicine
DX: K80.20 Calculus of gallbladder without cholecystitis without obstruction (principal); R10.13 Epigastric pain
CPT/HCPCS: 36415; 71045; 76705; 80053; 83605; 83690; 83880; 84484; 85025; 86140; 93005; 94761; 96374; 96375; 99284; 99285; J2270; J2405

== ENCOUNTER 2022-11-12 09:35 | Outpatient (CLI) | payer MEDICARE, MEDICAID, SELFPAY | END 2022-11-12 09:36 | disposition home or self-care (01) | PROVIDERS: PCP Family Medicine; Visit Provider Family Medicine | DX: I21.4 Non-ST elevation (NSTEMI) myocardial infarction (principal) | CPT/HCPCS: A0425; A0426; A0434 ==

== ENCOUNTER 2022-12-17 20:41 | Emergency (ER) | payer MEDICARE, MEDICAID, SELFPAY ==
[2022-12-17] VITALS (9 sets, daily range): BP systolic 91–122; BP diastolic 48–69; PULSE 52–61; RESP 16; TEMP 36.8; O2SAT 93–99; BMI 29.3
--- NOTE | 2022-12-17 21:14 | ED_ITS ---
HPI - General Adult General Time Seen by Provider: 21:14 Date Seen: 12/17/22 Chief complaint: Weakness Stated complaint: Low blood pressure, fatigue Time Seen by Provider: 12/17/22 21:03 Source: patient, family, RN notes reviewed and old records reviewed Mode of arrival: ambulatory Limitations: language barrier History of Present Illness HPI narrative: 77-year-old female brought in today by her daughter who helps interpret. Patient was outside all day today, apparently started complaining of some fatigue and daughter check blood pressure and found to be low. On further questioning, it sounds like patient had little chest pain this afternoon and so took an extra dose of her medications but was feeling fatigued prior to this as well. Denies shortness of breath, nausea, vomiting, diarrhea, fever, chills. Related Data Home Medications Medication Instructions Recorded Confirmed aspirin 81 mg tablet,delayed 81 mg PO DAILY 10/12/22 12/10/22 release nitroglycerin 0.4 mg sublingual mg sublingual 11/11/22 12/10/22 tablet Previous Rx's Medication Instructions Recorded pantoprazole 40 mg tablet,delayed 40 mg PO QDAY #30 tabs 11/11/22 release clopidogrel 75 mg tablet 75 mg PO DAILY #90 tabs 12/10/22 furosemide 20 mg tablet 20 mg PO DAILY #90 tabs 12/10/22 lisinopril 2.5 mg tablet 2.5 mg PO DAILY #90 tabs 12/10/22 metoprolol succinate 25 mg 12.5 mg (1/2 x 25 mg) PO DAILY #45 12/10/22 tablet,extended release 24 hr tabs rosuvastatin 10 mg tablet 10 mg PO QDAY #90 tabs 12/10/22 cefdinir 300 mg capsule 300 mg PO BID #14 caps 12/17/22 Allergies Allergy/AdvReac Type Severity Reaction Status Date / Time No Known Allergies Allergy Verified 12/17/22 20:54 Review of Systems Status of ROS: Reports: 10 or more systems reviewed and unremarkable except as noted in History and below [facility] Medical History (Updated 12/17/22 @ 23:13 by Vitaliy Case MD) History of myocardial infarction (02/04/10) ?I25.2 - Old myocardial infarction (ICD-10) Chronic heart failure with preserved ejection fraction ?I50.32 - Chronic diastolic (congestive) heart failure (ICD-10) Hyperlipidemia ?E78.5 - Hyperlipidemia, unspecified (ICD-10) Pulmonary hypertension ?I27.20 - Pulmonary hypertension, unspecified (ICD-10) Coronary artery disease ?I25.10 - Atherosclerotic heart disease of [place] coronary artery without angina pectoris (ICD-10) COVID-19 virus infection ?U07.1 - COVID-19 (ICD-10) 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.1 - Rheumatic tricuspid insufficiency (ICD-10) Mitral valve insufficiency ?I34.0 - Nonrheumatic mitral (valve) insufficiency (ICD-10) Left ventricular hypertrophy ?I51.7 - Cardiomegaly (ICD-10) History of migraine ?Z86.69 - Personal history of other diseases of the nervous system and sense organs (ICD-10) Surgical History History of coronary artery bypass surgery (2009) ?Z95.1 - Presence of aortocoronary bypass graft (ICD-10) History of cataract extraction (07/2017) ?Z98.49 - Cataract extraction status, unspecified eye (ICD-10) Social History (Updated 12/14/22 @ 08:01 by Edilma oRgers ~ CTA) Narrative: Grew up in [place], in the since the [place]. Hmong is primary language. Lives with daughter Vishal and family (near [place], they have a farm near [place]). Had 10 children, 4 living children now. 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 Nonsmoker, no ETOH. Vishal would be medical decision maker if needed; requests Full Code status. What is your current living situation: I presently have a place to live Problems where you live: no known problems In the past 12 months, utilities in danger of being shut off: no In past 12 months, lack of transportation kept you from medical appts, meetings, work, or getting things needed for daily living: No In the past 12 mos, have been you worried that your food would run out before you had money to buy more?: never true In the past 12 mos, the food you bought just didn't last and you didn't have money to buy more?: never true Highest level of school completed/degree received: never attended/kindergarten only Smoking Status: Never smoker Do you use any of these nicotine containing products: None Second hand tobacco smoke exposure: No How often do you have a drink containing alcohol: never How often do you have six or more drinks on one occasion: Never AUDIT-C Alcohol total score: 0 Non-prescribed substance use: denies use Caffeine: No How often does anyone, including family, friends and others, physically hurt you : never How often does anyone, including family, friends and others, insult or talk down to you: never How often does anyone, including family, friends and others, threaten you with harm: never How often does anyone, including family, friends and others, scream or curse at you: never Little interest or pleasure in doing things: not at all Feeling down, depressed, or hopeless: not at all service: No Exam Narrative: Exam Narrative: General: Well-developed and well-nourished, no acute distress Head: Atraumatic and normocephalic Eyes: Pupils are equal reactive, extraocular motions intact, conjunctiva clear ENT: External nose and ears are normal, posterior pharynx without erythema or exudate Neck: No midline cervical tenderness, full spontaneous range of motion the neck, trachea midline, no adenopathy Heart: Regular rate and rhythm no murmurs or thrills Lungs: Clear to auscultation bilaterally without wheezes or crackles Abdomen: Soft, epigastric tenderness,, nondistended with active bowel sounds Musculoskeletal: No tenderness, deformity, or edema Neurologic: Awake, alert, and oriented x3, no gross focal neurologic deficits, cranial nerves intact as tested Psych: Mood and affect are appropriate Skin: No rashes Const: Vital Signs, click to edit/add: Vital Signs - 24 hr 12/17/22 20:54 12/17/22 21:41 12/17/22 21:42 Temperature 98.2 F Pulse Rate 55 L 55 L Pulse Rate [Right Pulse Oximeter] 54 L Pulse Rate [orthos tatic lying Left P ulse Oximeter] Pulse Rate [orthos tatic sitting Left Pulse Oximeter] Pulse Rate [orthos tatic standing Lef t Pulse Oximeter] Respiratory Rate 16 Blood Pressure 96/48 L Blood Pressure [Ri ght Upper Arm] 91/59 L Blood Pressure [or thostatic lying Le ft Arm] Blood Pressure [or thostatic sitting Left Arm] Blood Pressure [or thostatic standing Left Arm] Pulse Oximetry 97 93 97 Oxygen Delivery Me thod Room Air 12/17/22 21:45 12/17/22 22:00 12/17/22 22:15 Temperature Pulse Rate 53 L 56 L 55 L Pulse Rate [Right Pulse Oximeter] Pulse Rate [orthos tatic lying Left P ulse Oximeter] Pulse Rate [orthos tatic sitting Left Pulse Oximeter] Pulse Rate [orthos tatic standing Lef t Pulse Oximeter] Respiratory Rate Blood Pressure Blood Pressure [Ri ght Upper Arm] Blood Pressure [or thostatic lying Le ft Arm] Blood Pressure [or thostatic sitting Left Arm] Blood Pressure [or thostatic standing Left Arm] Pulse Oximetry 97 99 93 Oxygen Delivery Me thod 12/17/22 22:26 12/17/22 22:27 12/17/22 22:32 Temperature Pulse Rate 54 L 61 Pulse Rate [Right Pulse Oximeter] Pulse Rate [orthos tatic lying Left P ulse Oximeter] 52 L Pulse Rate [orthos tatic sitting Left Pulse Oximeter] 54 L Pulse Rate [orthos tatic standing Lef t Pulse Oximeter] 57 L Respiratory Rate Blood Pressure 107/63 122/69 Blood Pressure [Ri ght Upper Arm] Blood Pressure [or thostatic lying Le ft Arm] 96/48 L Blood Pressure [or thostatic sitting Left Arm] 107/63 Blood Pressure [or thostatic standing Left Arm] 122/69 Pulse Oximetry 97 97 Oxygen Delivery Ri thod Course Course Hospital Course: Patient seen examined, prior records reviewed. Patient presents today with fatigue, found to be hypotensive and bradycardic could initial exam here. This may be related to taking an extra dose of medications including metoprolol and lisinopril today. However, patient was feeling fatigued prior to taking his medications so although they may be contributing to patient's abnormal vital signs, patient was experiencing fatigue chest pain prior. Labs, EKG, chest x- ray ordered along with orthostatic vital signs and fluid bolus. Reevaluation(s) Time of Reevaluation #1: 22:25 Reevaluation #1: Labs independently interpreted by me demonstrate anemia which is stable for patient, no leukocytosis. Basic panel is reassuring, hepatic panel and lipase are normal, lactate is normal, troponin is negative. Chest x-ray independently interpreted by me does not demonstrate any acute findings. Urinalysis is still pending. After fluid bolus, blood pressures remained stable. Time of Reevaluation #2: 23:08 Reevaluation #2: Urinalysis independently interpreted by me consistent with infection, Rocephin IV is ordered and patient will be discharged on cefdinir. No tachycardia, hypoxia, fever, or elevated lactate to suggest sepsis. Stable for discharge after antibiotics. Vital Signs Vital signs: Initial Vital Signs Temperature 98.2 F 12/17/22 20:54 Temperature Source Temporal Artery Scan 12/17/22 20:54 Pulse Rate 54 L 12/17/22 20:54 Pulse Rhythm Regular 12/17/22 20:54 Pulse Strength 3+ Normal 12/17/22 20:54 Respiratory Rate 16 12/17/22 20:54 Blood Pressure 91/59 L 12/17/22 20:54 Blood Pressure Mean 69 L 12/17/22 20:54 Blood Pressure Position Supine 12/17/22 20:54 Pulse Oximetry 97 12/17/22 20:54 Oxygen Delivery Method Room Air 12/17/22 20:54 Vital Signs Temperature 98.2 F 12/17/22 20:54 Pulse Rate 54 L 12/17/22 20:54 Respiratory Rate 16 12/17/22 20:54 Blood Pressure 91/59 L 12/17/22 20:54 Pulse Oximetry 97 12/17/22 20:54 Oxygen Delivery Method Room Air 12/17/22 20:54 Temperature 98.2 F 12/17/22 20:54 Pulse Rate 52 L 12/17/22 22:32 Respiratory Rate 16 12/17/22 20:54 Blood Pressure 96/48 L 12/17/22 22:32 Pulse Oximetry 97 12/17/22 22:27 Oxygen Delivery Method Room Air 12/17/22 20:54 Medical Decision Making Medical Records Medical records reviewed: Yes I reviewed the patient's medical records Lab Data Lab results reviewed: Yes I reviewed the patient's lab results Labs: Lab Results 12/17/22 12/17/22 12/17/22 Range/Units 21:21 21:35 22:37 WBC 7.57 (4.50-11.00) K/uL RBC 3.77 L (4.00-5.20) m/uL Hgb 9.9 L (12.0-16.0) gm/dL Hct 32.5 L (33.0-51.0) % MCV 86 (80-100) fL MCH 26 (26-34) pg MCHC 31 L (32-36) gm/dL RDW Coeff of Mandi 14.1 (11.5-15.5) % Plt Count 177 (140-440) K/uL Neut % (Auto) 66.5 (42.0-72.0) % Lymph % (Auto) 20.6 (20-44) % [place] % (Auto) 7.5 (0.0-11.0) % Eos % (Auto) 4.8 (0.0-7.0) % Baso % (Auto) 0.3 (0.0-3.0) % Neut # (Auto) 5.04 (1.7-7.0) K/uL Lymph # (Auto) 1.56 (0.90-2.90) K/uL [place] # (Auto) 0.60 (0.00-0.90) K/UL Eos # (Auto) 0.36 (0.00-0.50) K/uL Baso # (Auto) 0.02 (0.00-0.30) K/uL Sodium 140 (135-149) mmol/L Potassium 3.9 (3.6-5.1) mmol/L Chloride 106 (96-114) mmol/L Carbon Dioxide 28 (20-32) mmol/L BUN 33 H (7-30) mg/dL Creatinine 0.9 (0.5-1.5) mg/dL Estimated Creat Clear 48.14 Estimated GFR 65 ml/min Glucose 117 H (60-115) mg/dL Lactate 1.1 (0.5-1.9) mmol/L Calcium 8.9 (8.4-10.6) mg/dL Magnesium 2.1 (1.5-2.6) mg/dL Total Bilirubin 0.6 (0.1-1.5) mg/dL Direct Bilirubin 0.1 (0.0-0.5) mg/dL AST 23 (12-35) U/L ALT 14 (4-35) U/L Alkaline Phosphatase 137 (40-150) U/L Total Protein 6.6 (6.0-8.3) g/dL Albumin 3.6 (3.3-5.0) g/dL Lipase 52 (23-300) U/L Urine Color Yellow (Yellow) Urine Appearance Clear (Clear) Urine pH 5.0 (5.0-8.5) Ur Specific [place] 1.020 (1.000-1.030) Urine Protein Negative (Negative) Urine Glucose (UA) Negative (Negative) Urine Ketones Negative (Negative) Urine Blood Trace-intact A (Negative) Urine Nitrite Negative (Negative) Urine Bilirubin Negative (Negative) Urine Urobilinogen 0.2 (0.2-1.0) Ur Leukocyte Esterase 2+ A (Negative) Urine RBC 2-5 A (0-2) Urine WBC 10-25 A (0-5) Ur Squamous Epith Cells Moderate A (None-Few) Urine Bacteria Moderate A (None) POC Troponin I 0.02 (0.01-0.04) ng/ml Discharge Plan Discharge Clinical Impression: General weakness, Urinary tract infection Patient Disposition: Home w/ Parent or Adult Condition: Stable Instructions: Urinary Tract Infection in Women (DC) Additional Instructions: Lots of fluids and rest. Start antibiotics evening of December 18 Activity Level: Activity as Tolerated Discharge Diet: Regular Prescriptions: New cefdinir 300 mg capsule 300 mg PO BID Qty: 14 0RF No Action pantoprazole 40 mg tablet,delayed release (DR/EC) 40 mg PO QDAY Qty: 30 5RF aspirin 81 mg tablet,delayed release (DR/EC) 81 mg PO DAILY rosuvastatin 10 mg tablet 10 mg PO QDAY Qty: 90 3RF metoprolol succinate 25 mg tablet extended release 24 hr 12.5 mg PO DAILY Qty: 45 3RF furosemide 20 mg tablet 20 mg PO DAILY Qty: 90 3RF clopidogrel 75 mg tablet 75 mg PO DAILY Qty: 90 3RF lisinopril 2.5 mg tablet 2.5 mg PO DAILY Qty: 90 3RF nitroglycerin 0.4 mg tablet, sublingual sublingual Follow Up/Referrals: John San MD [Primary Care Provider] - Stand Alone Forms: [facility] Info Instructions
--- NOTE | 2022-12-17 21:21 | CRLHL7_ITS ---
For Patients: As a result of the Century Cures Act, medical imaging exams and procedure reports are released immediately into your electronic medical record. You may view this report before your referring provider. If you have questions, please contact your health care provider. INDICATION: Weakness, chest pain, and fatigue. COMPARISON: 11/11/2022 chest radiograph. FINDINGS/IMPRESSION: Sitting portable AP chest radiograph. No acute pulmonary infiltrate identified. No pleural effusions. Stable cardiac configuration with probable mild cardiomegaly. Upper normal pulmonary vasculature. Median sternotomy wires, as before. No acute osseous findings. Dictated by Lex Beckett MD @ 12/17/2022 10:26:11 PM Dictated by: Lex Beckett MD @ 12/17/2022 22:26:22 (Electronically Signed)
[2022-12-17 21:37] LABS: Lactate* 1.1 mmol/L (0.5-1.9)
[2022-12-17 21:38] LABS: Basophils Absolute Auto 0.02 K/uL (0.00-0.30); Basophils Percent Auto 0.3 % (0.0-3.0); Eosinophils Absolute Auto 0.36 K/uL (0.00-0.50); Eosinophils Percent Auto 4.8 % (0.0-7.0); Hematocrit 32.5 % (33.0-51.0); Hemoglobin* 9.9 gm/dL (12.0-16.0); Immature Granulocytes Abs Auto 0.02 K/uL (0.00-0.30); Immature Granulocytes Pct Auto 0.3 %; Lymphocytes Absolute Auto 1.56 K/uL (0.90-2.90); Lymphocytes Percent Auto 20.6 % (20-44); Mean Corpuscular HGB Conc 31 gm/dL (32-36); Mean Corpuscular Hemoglobin 26 pg (26-34); Mean Corpuscular Volume 86 fL (80-100); Monocytes Percent Auto 7.5 % (0.0-11.0); Neutrophils Absolute Auto 5.04 K/uL (1.7-7.0); Neutrophils Percent Auto 66.5 % (42.0-72.0); Platelet Count* 177 K/uL (140-440); RDW Coefficient of Variation % 14.1 % (11.5-15.5); Red Blood Count 3.77 m/uL (4.00-5.20); White Blood Count* 7.57 K/uL (4.50-11.00)
[2022-12-17 21:43] LABS: Slide Review Reflex No
[2022-12-17 21:53] LABS: Albumin* 3.6 g/dL (3.3-5.0)
[2022-12-17 21:53] LABS: Troponin, Point-of-Care* 0.02 ng/ml (0.01-0.04)
[2022-12-17 21:54] LABS: Chloride* 106 mmol/L (96-114); Potassium* 3.9 mmol/L (3.6-5.1); Sodium* 140 mmol/L (135-149)
[2022-12-17 21:56] LABS: Alkaline Phosphatase* 137 U/L (40-150); Aspartate Amino Transferase* 23 U/L (12-35); Bilirubin Direct* 0.1 mg/dL (0.0-0.5); Bilirubin Total* 0.6 mg/dL (0.1-1.5); Carbon Dioxide* 28 mmol/L (20-32); Creatinine* 0.9 mg/dL (0.5-1.5); Est. Creatinine Clearance* 48.14; Estimated Glomerular Filt Rate 65 ml/min; Total Protein* 6.6 g/dL (6.0-8.3)
[2022-12-17 21:57] LABS: Alanine Aminotransferase* 14 U/L (4-35); Blood Urea Nitrogen* 33 mg/dL (7-30); Calcium* 8.9 mg/dL (8.4-10.6); Glucose* 117 mg/dL (60-115); Lipase* 52 U/L (23-300); Magnesium* 2.1 mg/dL (1.5-2.6)
[2022-12-17 22:53] LABS: Appearance Urine Clear (Clear); Bilirubin Urine Negative (Negative); Blood Urine Trace-intact (Negative); Color Urine Yellow (Yellow); Glucose Urine Negative (Negative); Ketones Urine Negative (Negative); Leukocyte Esterase Urine 2+ (Negative); Nitrite Urine Negative (Negative); Protein Urine Negative (Negative); Urobilinogen Urine 0.2 (0.2-1.0)
[2022-12-17 23:02] LABS: Bacteria Urine Moderate; Squamous Epithelial Cell Urine Moderate (None-Few)
== END 2022-12-17 23:22 | disposition home or self-care (01) ==
PROVIDERS: Emergency Provider Family Medicine; PCP Family Medicine
DX: N39.0 Urinary tract infection, site not specified (principal); R53.1 Weakness
CPT/HCPCS: 36415; 71045; 80048; 80076; 81001; 83605; 83690; 83735; 84484; 85025; 87086; 87186; 93005; 96374; 99284; 99285

== ENCOUNTER 2023-02-09 04:05 | Emergency (ER) | payer MEDICARE, MEDICAID, SELFPAY ==
[2023-02-09] VITALS (23 sets, daily range): BP systolic 124–140; BP diastolic 67–81; PULSE 54–63; RESP 16–20; TEMP 36.1–36.4; O2SAT 94–100
--- NOTE | 2023-02-09 04:55 | CRLHL7_ITS ---
For Patients: As a result of the Century Cures Act, medical imaging exams and procedure reports are released immediately into your electronic medical record. You may view this report before your referring provider. If you have questions, please contact your health care provider. INDICATION: abdominal pain, diarrhea TECHNIQUE: CT abdomen and pelvis with 50 cc Isovue 370 IV contrast. COMPARISON: CT abdomen pelvis December 19, 2020. FINDINGS: The liver is normal in size, shape and attenuation. Cholelithiasis within a contracted gallbladder. The spleen, adrenal glands and pancreas are within normal limits. Mild bilateral renal cortical atrophy. Subcentimeter renal hypodensities are too small to characterize but statistically favored to represent cysts. Bilateral intrarenal calculi with the largest on the left measuring 8 mm. No hydronephrosis. Unremarkable appearing bladder. The stomach is decompressed. Mildly dilated fluid-filled colon predominantly involving the cecum and ascending colon. No evidence of bowel obstruction or enteric inflammation. No significant free fluid and no free air. Pelvic organs are unremarkable. Mild passive bibasilar atelectasis. Moderate advanced multilevel degenerate spondylosis. Similar grade 1 anterolisthesis L4 on L5. No evidence of acute fracture. IMPRESSION: 1. Mildly dilated fluid-filled colon predominantly involving the cecum and ascending colon. Finding can be seen in the setting of diarrheal state. Otherwise, no evidence of acute intra-abdominal/pelvic process. 2. Bilateral nonobstructing intrarenal calculi. 3. Cholelithiasis within a contracted gallbladder. Please note that all CT scans at this facility use dose modulation, iterative reconstruction, and/or weight-based dosing when appropriate to reduce radiation dose to as low as reasonably achievable. Dictated by Miller Sánchez MD @ 02/09/2023 8:55:28 AM (Electronically Signed)
--- NOTE | 2023-02-09 05:05 | ED_ITS ---
HPI - General Adult General Time Seen by Provider: 05:05 Date Seen: 02/09/23 Chief complaint: Diarrhea Stated complaint: diarrhea Time Seen by Provider: 02/09/23 04:06 Source: patient, family and ballistics professor (Family member) Mode of arrival: ambulatory History of Present Illness HPI narrative: Patient is a 77-year-old female with a history of CABG, anemia, pulmonary hypertension presented emergency department for diarrhea. Her family member is being the ballistics professor for her. They state that the patient started having 2 episodes of diarrhea around midnight. She then became incontinent of stool and states she cannot control it now. States is watery in appearance. Denies fevers, chills, chest pain, shortness of breath, abdominal pain, dysuria, vaginal discharge, vaginal pain, vaginal bleeding, dizziness. She does states she feels lightheaded and after the diarrhea started she felt like she was going to pass out from the lightheadedness. She she denies having symptoms like this before. States she is wondering if she has food poisoning from a piece of pork she took out of the freezer and made a stew out of. The patient family member states she is otherwise acting normal. No other concerns at this time. Patient denies any nausea or vomiting. Related Data Home Medications Medication Instructions Recorded Confirmed aspirin 81 mg tablet,delayed 81 mg PO DAILY 10/12/22 02/09/23 release nitroglycerin 0.4 mg sublingual mg sublingual 11/11/22 12/10/22 tablet atorvastatin 80 mg tablet 80 mg PO QDAY 01/05/23 02/09/23 Previous Rx's Medication Instructions Recorded pantoprazole 40 mg tablet,delayed 40 mg PO QDAY #30 tabs 11/11/22 release clopidogrel 75 mg tablet 75 mg PO DAILY #90 tabs 12/10/22 furosemide 20 mg tablet 20 mg PO DAILY #90 tabs 12/10/22 lisinopril 2.5 mg tablet 2.5 mg PO DAILY #90 tabs 12/10/22 metoprolol succinate 25 mg 12.5 mg (1/2 x 25 mg) PO DAILY #45 12/10/22 tablet,extended release 24 hr tabs rosuvastatin 10 mg tablet 10 mg PO QDAY #90 tabs 12/10/22 cefdinir 300 mg capsule 300 mg PO BID #14 caps 06/22/23 Allergies Allergy/AdvReac Type Severity Reaction Status Date / Time No Known Allergies Allergy Verified 02/09/23 04:16 Review of Systems Status of ROS: Reports: 10 or more systems reviewed and unremarkable except as noted in History and below [facility] Medical History (Updated 01/01/23 @ 00:01 by Gabe Jules) History of myocardial infarction (02/04/10) ?I25.2 - Old myocardial infarction (ICD-10) Chronic heart failure with preserved ejection fraction ?I50.32 - Chronic diastolic (congestive) heart failure (ICD-10) Hyperlipidemia ?E78.5 - Hyperlipidemia, unspecified (ICD-10) Pulmonary hypertension ?I27.20 - Pulmonary hypertension, unspecified (ICD-10) Coronary artery disease ?I25.10 - Atherosclerotic heart disease of [place] coronary artery without angina pectoris (ICD-10) COVID-19 virus infection ?U07.1 - COVID-19 (ICD-10) 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.1 - Rheumatic tricuspid insufficiency (ICD-10) Mitral valve insufficiency ?I34.0 - Nonrheumatic mitral (valve) insufficiency (ICD-10) Left ventricular hypertrophy ?I51.7 - Cardiomegaly (ICD-10) History of migraine ?Z86.69 - Personal history of other diseases of the nervous system and sense organs (ICD-10) Surgical History History of coronary artery bypass surgery (2009) ?Z95.1 - Presence of aortocoronary bypass graft (ICD-10) History of cataract extraction (07/2017) ?Z98.49 - Cataract extraction status, unspecified eye (ICD-10) Social History (Updated 12/14/22 @ 08:01 by Edilma Rogers ~ CTA) Narrative: Grew up in [facility], in the since the 1970s. Hmong is primary language. Lives with daughter Vishal and family (near [place], they have a farm near [place]). Had 10 children, 4 living children now. Homemaker. Nonsmoker, no ETOH. Vishal would be medical decision maker if needed; requests Full Code status. What is your current living situation?: I presently have a place to live Problems where you live: no known problems In the past 12 months, utilities in danger of being shut off: no In the past 12 mos, have been you worried that your food would run out before you had money to buy more?: never true In the past 12 mos, the food you bought just didn't last and you didn't have money to buy more?: never true Highest level of school completed/degree received: never attended/kindergarten only Smoking Status: Never smoker Do you use any of these nicotine containing products: None Second hand tobacco smoke exposure: No How often do you have a drink containing alcohol: never How often do you have six or more drinks on one occasion: Never AUDIT-C Alcohol total score: 0 Non-prescribed substance use: denies use Caffeine: No How often does anyone, including family, friends and others, physically hurt you : How often does anyone, including family, friends and others, insult or talk down to you: How often does anyone, including family, friends and others, threaten you with harm: How often does anyone, including family, friends and others, scream or curse at you: Little interest or pleasure in doing things: not at all Feeling down, depressed, or hopeless: not at all service: No Exam Narrative: Exam Narrative: Const: Well-nourished, Well-developed, in mild distress Eyes: PERRL, no conjunctival injection, and symmetrical lids ENMT: Atraumatic external nose and ears. Moist mucous membranes. Neck: Symmetric, trachea midline, No thyromegaly. CVS: RRR, No murmurs or gallops. Peripheral pulses 2+ and equal in all extremities RESP: Unlabored respiratory effort. Clear to auscultation bilaterally. GI: Nontender/Nondistended, No rebound or guarding. MSK:Extremities w/o deformity, Normal Active ROM Skin: Warm, Dry. No rashes or lesions. Neuro: Normal Muscle tone, No focal neurological deficits. Psych: Awake, Alert, & Oriented x3. Appropriate mood and affect. Const: Vital Signs, click to edit/add: Vital Signs - 24 hr 02/09/23 04:16 02/09/23 06:21 02/09/23 06:22 Temperature 97.5 F L Pulse Rate 62 59 L Pulse Rate [Pulse Oximeter] 60 Respiratory Rate 20 Blood Pressure 129/74 Blood Pressure [Ri ght Upper Arm] 139/81 Pulse Oximetry 95 98 97 Oxygen Delivery Me thod Room Air 02/09/23 06:30 02/09/23 06:45 02/09/23 07:00 Temperature Pulse Rate 59 L 59 L 57 L Pulse Rate [Pulse Oximeter] Respiratory Rate Blood Pressure Blood Pressure [Ri ght Upper Arm] Pulse Oximetry 99 98 98 Oxygen Delivery Me thod 02/09/23 07:15 02/09/23 07:28 02/09/23 07:30 Temperature Pulse Rate 58 L 62 59 L Pulse Rate [Pulse Oximeter] Respiratory Rate Blood Pressure 140/71 H Blood Pressure [Ri ght Upper Arm] Pulse Oximetry 96 99 97 Oxygen Delivery Me thod 02/09/23 07:32 Temperature Pulse Rate Pulse Rate [Pulse Oximeter] Respiratory Rate 16 Blood Pressure Blood Pressure [Ri ght Upper Arm] 140/71 H Pulse Oximetry 99 Oxygen Delivery Me thod Room Air Course Vital Signs Vital signs: Initial Vital Signs Temperature 97.5 F L 02/09/23 04:16 Temperature Source Temporal Artery Scan 02/09/23 04:16 Pulse Rate 60 02/09/23 04:16 Respiratory Rate 20 02/09/23 04:16 Blood Pressure 139/81 02/09/23 04:16 Blood Pressure Mean 100 02/09/23 04:16 Blood Pressure Position Sitting 02/09/23 04:16 Pulse Oximetry 95 02/09/23 04:16 Oxygen Delivery Method Room Air 02/09/23 04:16 Vital Signs Temperature 97.5 F L 02/09/23 04:16 Pulse Rate 60 02/09/23 04:16 Respiratory Rate 20 02/09/23 04:16 Blood Pressure 139/81 02/09/23 04:16 Pulse Oximetry 95 02/09/23 04:16 Oxygen Delivery Method Room Air 02/09/23 04:16 Temperature 97.5 F L 02/09/23 04:16 Pulse Rate 59 L 02/09/23 07:30 Respiratory Rate 16 02/09/23 07:32 Blood Pressure 140/71 H 02/09/23 07:32 Pulse Oximetry 99 02/09/23 07:32 Oxygen Delivery Method Room Air 02/09/23 07:32 Medical Decision Making MDM Narrative Medical decision making narrative: Patient is a 77-year-old female presented emergency department for diarrhea and lightheadedness. Diarrhea started around midnight today and is she is not becoming incontinent of this. She states it is watery. Has had no sick contacts. She thinks she might have food poisoning from a piece of pork in her freezer that she cooked. She is not having any abdominal pain. There is some concern she has could have food poisoning versus C diff. She has not traveled anywhere recently. It is unknown what the source of the diarrhea is at this time. Was some concern she is becoming dehydrated again electrolyte imbalances from the diarrhea that is causing her lightheadedness. We will order CT scan the abdomen pelvis to better evaluate her considering her age and symptoms. Ulcers cbc, CMP, and COVID/flu/RSV. Patient was given a L of lactated Ringer's. EKG shows no concerning abnormalities CMP shows mildly elevated AST and alkaline phosphatase but otherwise no concerning abnormalities. Cbc shows no concerning abnormalities. Cold/flu/RSV was negative. Per nursing reports when patient 1st arrived to the hospital she was able quickly care of wheelchair jump into the bed without issue. Patient's CT scan is still pending at this time and will be signed out to the day team pending final disposition and final CT report. Lab Data Labs: Lab Results 02/09/23 Range/Units 05:15 WBC 6.53 (4.50-11.00) K/uL RBC 4.96 (4.00-5.20) m/uL Hgb 12.4 (12.0-16.0) gm/dL Hct 41.1 (33.0-51.0) % MCV 83 (80-100) fL MCH 25 L (26-34) pg MCHC 30 L (32-36) gm/dL RDW Coeff of Mandi 15.1 (11.5-15.5) % Plt Count 174 (140-440) K/uL Neut % (Auto) 50.8 (42.0-72.0) % Lymph % (Auto) 32.0 (20-44) % [place] % (Auto) 7.0 (0.0-11.0) % Eos % (Auto) 9.2 H (0.0-7.0) % Baso % (Auto) 0.8 (0.0-3.0) % Neut # (Auto) 3.32 (1.7-7.0) K/uL Lymph # (Auto) 2.09 (0.90-2.90) K/uL [place] # (Auto) 0.50 (0.00-0.90) K/UL Eos # (Auto) 0.60 H (0.00-0.50) K/uL Baso # (Auto) 0.05 (0.00-0.30) K/uL Abs Immat Gran (auto) 0.01 (0.00-0.30) K/uL Imm/Tot Granulo (auto) 0.2 % Sodium 137 (135-149) mmol/L Potassium 4.8 (3.6-5.1) mmol/L Chloride 105 (96-114) mmol/L Carbon Dioxide 22 (20-32) mmol/L BUN 26 (7-30) mg/dL Creatinine 0.6 (0.5-1.5) mg/dL Estimated GFR 92 ml/min Glucose 95 (60-115) mg/dL Calcium 9.0 (8.4-10.6) mg/dL Total Bilirubin 0.9 (0.1-1.5) mg/dL AST 48 H (12-35) U/L ALT 20 (4-35) U/L Alkaline Phosphatase 197 H (40-150) U/L Total Protein 7.8 (6.0-8.3) g/dL Albumin 4.2 (3.3-5.0) g/dL SARS-CoV-2 (PCR) Negative SARS-CoV-2 (Negative) Influenza Type A (PCR) Negative PCR FLU A (Negative) Influenza Type B (PCR) Negative PCR FLU B (Negative) RSV (PCR) Negative PCR RSV (Negative) ECG Data Attestation: I personally reviewed and interpreted this ECG as follows: (Sinus bradycardia 58 beats per minute, normal axis, normal intervals, no ST or T-wave abnormalities. Does appear to have a right bundle-branch block. Appears similar previous EKGs) Prior ECG tracings: available for review Discharge Plan Discharge Prescriptions: No Action pantoprazole 40 mg tablet,delayed release (DR/EC) 40 mg PO QDAY Qty: 30 5RF aspirin 81 mg tablet,delayed release (DR/EC) 81 mg PO DAILY rosuvastatin 10 mg tablet 10 mg PO QDAY Qty: 90 3RF metoprolol succinate 25 mg tablet extended release 24 hr 12.5 mg PO DAILY Qty: 45 3RF furosemide 20 mg tablet 20 mg PO DAILY Qty: 90 3RF clopidogrel 75 mg tablet 75 mg PO DAILY Qty: 90 3RF lisinopril 2.5 mg tablet 2.5 mg PO DAILY Qty: 90 3RF nitroglycerin 0.4 mg tablet, sublingual sublingual cefdinir 300 mg capsule 300 mg PO BID Qty: 14 0RF atorvastatin 80 mg tablet 80 mg PO QDAY Follow Up/Referrals: John San MD [Primary Care Provider] -
[2023-02-09 05:30] LABS: Basophils Absolute Auto 0.05 K/uL (0.00-0.30); Basophils Percent Auto 0.8 % (0.0-3.0); Eosinophils Percent Auto 9.2 % (0.0-7.0); Hematocrit 41.1 % (33.0-51.0); Hemoglobin* 12.4 gm/dL (12.0-16.0); Immature Granulocytes Abs Auto 0.01 K/uL (0.00-0.30); Immature Granulocytes Pct Auto 0.2 %; Lymphocytes Absolute Auto 2.09 K/uL (0.90-2.90); Mean Corpuscular HGB Conc 30 gm/dL (32-36); Mean Corpuscular Hemoglobin 25 pg (26-34); Mean Corpuscular Volume 83 fL (80-100); Neutrophils Absolute Auto 3.32 K/uL (1.7-7.0); Neutrophils Percent Auto 50.8 % (42.0-72.0); Platelet Count* 174 K/uL (140-440); RDW Coefficient of Variation % 15.1 % (11.5-15.5); Red Blood Count 4.96 m/uL (4.00-5.20); White Blood Count* 6.53 K/uL (4.50-11.00)
[2023-02-09 05:32] LABS: Slide Review Reflex No
[2023-02-09 05:43] LABS: Albumin* 4.2 g/dL (3.3-5.0)
[2023-02-09 05:44] LABS: Chloride* 105 mmol/L (96-114); Potassium* 4.8 mmol/L (3.6-5.1); Sodium* 137 mmol/L (135-149)
[2023-02-09 05:46] LABS: Aspartate Amino Transferase* 48 U/L (12-35); Bilirubin Total* 0.9 mg/dL (0.1-1.5); Carbon Dioxide* 22 mmol/L (20-32); Creatinine* 0.6 mg/dL (0.5-1.5); Estimated Glomerular Filt Rate 92 ml/min; Total Protein* 7.8 g/dL (6.0-8.3)
[2023-02-09 05:47] LABS: Alanine Aminotransferase* 20 U/L (4-35); Alkaline Phosphatase* 197 U/L (40-150); Blood Urea Nitrogen* 26 mg/dL (7-30); Glucose* 95 mg/dL (60-115)
[2023-02-09 06:08] LABS: PCR FLU A Negative PCR FLU A (Negative); PCR FLU B Negative PCR FLU B (Negative); PCR RSV Negative PCR RSV (Negative)
[2023-02-09] MEDS: LACTATED RINGERS 1000 ML 1,000 ML IV (06:11)
[2023-02-09 06:34] LABS: SARS PCR* Negative SARS-CoV-2 (Negative)
== END 2023-02-09 10:40 | disposition home or self-care (01) ==
PROVIDERS: Student in an Organized Health Care Education/Training Program; Emergency Provider Emergency Medicine; PCP Family Medicine
DX: R19.7 Diarrhea, unspecified (principal)
CPT/HCPCS: 36415; 74177; 80053; 85025; 87631; 93005; 99283; 99284; J7120; Q9967

== ENCOUNTER 2023-05-17 10:06 | Emergency (ER) | payer MEDICARE, MEDICAID, SELFPAY ==
[2023-05-17 10:13] VITALS: BP 121/64; PULSE 68; RESP 18; TEMP 36.3; O2SAT 100
--- NOTE | 2023-05-17 12:04 | ED_ITS ---
HPI - General Adult General Chief complaint: Extremity Pain/Injury, Lower Stated complaint: Pain in both legs Time Seen by Provider: 05/17/23 12:04 History of Present Illness HPI narrative: c/o bilateral leg pain for several weeks. 77-year-old woman here with complaint of several weeks of bilateral leg pain, tendency to twitch particularly at night. All of this really amplified is in the evenings. Legs will also feel cold. Right leg and foot primarily demonstrated but present also in the left leg equally. No new weakness but does use a walker to get about. Hard to sleep because of it. She describes it as a numb sort of pain. No trauma to the low back or pelvis. Is hoping for some medication to help. Presenting to the emergency department due to this and that the anticipate sometime being able to get in with primary care provider. History of anemia. Reviewing records show labs drawn 10-12 weeks ago with normal hemoglobin and chemistries. Related Data Home Medications Medication Instructions Recorded Confirmed aspirin 81 mg tablet,delayed 81 mg PO DAILY 10/12/22 02/09/23 release nitroglycerin 0.4 mg sublingual mg sublingual 11/11/22 12/10/22 tablet atorvastatin 80 mg tablet 80 mg PO QDAY 01/05/23 02/09/23 Previous Rx's Medication Instructions Recorded pantoprazole 40 mg tablet,delayed 40 mg PO QDAY #30 tabs 11/11/22 release clopidogrel 75 mg tablet 75 mg PO DAILY #90 tabs 12/10/22 furosemide 20 mg tablet 20 mg PO DAILY #90 tabs 12/10/22 lisinopril 2.5 mg tablet 2.5 mg PO DAILY #90 tabs 12/10/22 metoprolol succinate 25 mg 12.5 mg (1/2 x 25 mg) PO DAILY #45 12/10/22 tablet,extended release 24 hr tabs rosuvastatin 10 mg tablet 10 mg PO QDAY #90 tabs 12/10/22 cefdinir 300 mg capsule 300 mg PO BID #14 caps 12/17/22 gabapentin 100 mg capsule 100 mg PO BID #30 caps 05/17/23 Allergies Allergy/AdvReac Type Severity Reaction Status Date / Time No Known Allergies Allergy Verified 02/09/23 04:16 Review of Systems Status of ROS: Reports: 6 or more systems reviewed and unremarkable except as noted in History and below PFSH PFSH Medical History History of myocardial infarction (02/04/10) ?I25.2 - Old myocardial infarction (ICD-10) Chronic heart failure with preserved ejection fraction ?I50.32 - Chronic diastolic (congestive) heart failure (ICD-10) Hyperlipidemia ?E78.5 - Hyperlipidemia, unspecified (ICD-10) Pulmonary hypertension ?I27.20 - Pulmonary hypertension, unspecified (ICD-10) Coronary artery disease ?I25.10 - Atherosclerotic heart disease of [place] coronary artery without angina pectoris (ICD-10) COVID-19 virus infection ?U07.1 - COVID-19 (ICD-10) 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.1 - Rheumatic tricuspid insufficiency (ICD-10) Mitral valve insufficiency ?I34.0 - Nonrheumatic mitral (valve) insufficiency (ICD-10) Left ventricular hypertrophy ?I51.7 - Cardiomegaly (ICD-10) History of migraine ?Z86.69 - Personal history of other diseases of the nervous system and sense organs (ICD-10) Surgical History History of coronary artery bypass surgery (2009) ?Z95.1 - Presence of aortocoronary bypass graft (ICD-10) History of cataract extraction (07/2017) ?Z98.49 - Cataract extraction status, unspecified eye (ICD-10) Social History Narrative: Grew up in [facility], in the since the 1970s. Hmong is primary language. Lives with daughter Vishal and family (near [place], they have a farm near [place]). Had 10 children, 4 living children now. Homemaker. Nonsmoker, no ETOH. Vishal would be medical decision maker if needed; requests Full Code status. What is your current living situation?: I presently have a place to live Problems where you live: no known problems In the past 12 months, utilities in danger of being shut off: no In the past 12 mos, have been you worried that your food would run out before you had money to buy more?: never true In the past 12 mos, the food you bought just didn't last and you didn't have money to buy more?: never true Highest level of school completed/degree received: never attended/kindergarten only Smoking Status: Never smoker Do you use any of these nicotine containing products: None Second hand tobacco smoke exposure: No How often do you have a drink containing alcohol: never How often do you have six or more drinks on one occasion: Never AUDIT-C Alcohol total score: 0 Non-prescribed substance use: denies use Caffeine: No How often does anyone, including family, friends and others, physically hurt you : How often does anyone, including family, friends and others, insult or talk down to you: How often does anyone, including family, friends and others, threaten you with harm: How often does anyone, including family, friends and others, scream or curse at you: Little interest or pleasure in doing things: not at all Feeling down, depressed, or hopeless: not at all service: No Exam Narrative: Exam Narrative: Small stature. Breathing easily. Extremities are well perfused. No lower extremity edema. Trace and equal dorsalis pedis pulses. Toenails with possible onychomycosis or prior injury. Has good strength in her extremities. No rashes. No sensory loss apparent. Did not perform discriminatory testing. Const: Vital Signs, click to edit/add: Vital Signs - 24 hr 05/17/23 12:39 05/17/23 14:00 Pulse Rate 60 Pulse Rate [Right Pulse Oximeter] 67 Respiratory Rate 18 18 Blood Pressure 116/69 Blood Pressure [Ri ght Upper Arm] 142/77 H Pulse Oximetry 96 97 Oxygen Delivery Me thod Room Air Room Air Documenting provider has reviewed patient's vital signs: yes Course Vital Signs Vital signs: Initial Vital Signs Temperature 97.4 F L 05/17/23 10:13 Temperature Source Temporal Artery Scan 05/17/23 10:13 Pulse Rate 68 05/17/23 10:13 Respiratory Rate 18 05/17/23 10:13 Blood Pressure 121/64 05/17/23 10:13 Blood Pressure Mean 83 05/17/23 10:13 Blood Pressure Position Sitting 05/17/23 10:13 Pulse Oximetry 100 05/17/23 10:13 Oxygen Delivery Method Room Air 05/17/23 10:13 Vital Signs Temperature 97.4 F L 05/17/23 10:13 Pulse Rate 68 05/17/23 10:13 Respiratory Rate 18 05/17/23 10:13 Blood Pressure 121/64 05/17/23 10:13 Pulse Oximetry 100 05/17/23 10:13 Oxygen Delivery Method Room Air 05/17/23 10:13 Temperature 97.4 F L 05/17/23 10:13 Pulse Rate 67 05/17/23 14:00 Respiratory Rate 18 05/17/23 14:00 Blood Pressure 142/77 H 05/17/23 14:00 Pulse Oximetry 97 05/17/23 14:00 Oxygen Delivery Method Room Air 05/17/23 14:00 Medical Decision Making MDM Narrative Medical decision making narrative: Seems to be describing a peripheral neuropathy or maybe simply restless leg. Does not appear to have weakness. Anemia, vitamin deficiencies, electrolyte abnormalities could certainly contribute to this. Normal labs a few weeks ago. Unknown vitamin considerations. Does have coronary vascular disease with history of interventions and likely peripheral vascular disease but not describing claudication symptoms. Pending conversation with primary to initiate on medication that might be helpful for some degree of restless legs or peripheral neuropathy. Further workup I think can be done primary care. Did discuss with primary care provider following departure. Please see patient discharge plan Discharge Plan Discharge Clinical Impression: Peripheral neuropathy, Restless leg Patient Disposition: Home w/ Parent or Adult Condition: Stable Additional Instructions: Important to stay well-hydrated. I do not get the impression you have a back injury contributing to your symptoms. Further you are not describing typical claudication symptoms. Nerve type pain though can be helped with gabapentin. I am sending this in to your pharmacy. I am not sure how much of your symptoms might also be attributable to restless legs. Please schedule a follow-up with your primary care provider as soon as possible for more thorough workup. In the meantime you could take magnesium supplementation or some people find quinine helpful as well; magnesium and/or quinine more for symptoms of restless legs. You might start with this before filling your prescription and give a few days to feel effect. Prescriptions: New gabapentin 100 mg capsule 100 mg PO BID Qty: 30 0RF No Action pantoprazole 40 mg tablet,delayed release (DR/EC) 40 mg PO QDAY Qty: 30 5RF aspirin 81 mg tablet,delayed release (DR/EC) 81 mg PO DAILY rosuvastatin 10 mg tablet 10 mg PO QDAY Qty: 90 3RF metoprolol succinate 25 mg tablet extended release 24 hr 12.5 mg PO DAILY Qty: 45 3RF furosemide 20 mg tablet 20 mg PO DAILY Qty: 90 3RF clopidogrel 75 mg tablet 75 mg PO DAILY Qty: 90 3RF lisinopril 2.5 mg tablet 2.5 mg PO DAILY Qty: 90 3RF nitroglycerin 0.4 mg tablet, sublingual sublingual cefdinir 300 mg capsule 300 mg PO BID Qty: 14 0RF atorvastatin 80 mg tablet 80 mg PO QDAY Follow Up/Referrals: John San MD [Primary Care Provider] - Stand Alone Forms: [facility] Info Instructions
[2023-05-17 12:39] VITALS: BP 116/69; PULSE 60; RESP 18; O2SAT 96
[2023-05-17 14:00] VITALS: BP 142/77; PULSE 67; RESP 18; O2SAT 97
--- NOTE | 2023-05-17 14:17 | ED.NURSE ---
Declined interrupter services with discharge teaching, wanted daughter at bedside to translate
== END 2023-05-17 14:17 | disposition home or self-care (01) ==
PROVIDERS: Emergency Provider Family Medicine; PCP Family Medicine
DX: G62.9 Polyneuropathy, unspecified (principal); G25.81 Restless legs syndrome
CPT/HCPCS: 99283; 99284

== ENCOUNTER 2023-09-08 09:52 | Outpatient (CLI) | payer MEDICARE, MEDICAID, SELFPAY ==
--- NOTE | 2023-09-08 10:15 | MR_ITS ---
Patient: PILAR MESSINA Facility:?[facility] Patient ID:?[id number] Site Patient ID:?[id number]. Site :?[id number] Study:?MRI-Spine Left W/O-09/08/2023 10:34:50 AM Ordering Physician:ARBEN SANCHEZ Final Report: Indication: Radiculopathy. Technique: Multiplanar, multisequence MRI of the lumbar spine was performed without intravenous contrast. Comparison: None relevant available. Findings: There are 5 lumbar type vertebral segments identified. The vertebral body heights are maintained without evidence of fracture. There is no discrete T1 hypointense marrow infiltrating process. The conus medullaris terminates at L1-2, normal. Cauda equina appears unremarkable. Redundancy of the cauda equina nerve roots above the L3-4 level. T12-L1: Disc degeneration. Minimal disc bulge with minimal spinal canal narrowing. Mild neural foraminal narrowing. L1-2: Disc degeneration. Disc bulge with facet hypertrophy results in mild spinal canal narrowing. Mild neural foraminal narrowing. Mild facet arthropathy. L2-3: Disc degeneration. Disc bulge coupled with facet hypertrophy resulting in moderate spinal canal narrowing. [id number] neural foraminal narrowing. L3-4: Disc degeneration. Disc bulge with ligamentum flavum thickening and facet hypertrophy results in severe spinal canal stenosis. Moderate to severe neural foraminal narrowing. L4-5: Disc degeneration. Disc bulge coupled with ligamentum flavum thickening and facet hypertrophy results in severe spinal canal stenosis. Moderate to severe left and [id number] right neural foraminal stenosis. L5-S1: Disc degeneration. Disc bulge with superimposed right subarticular disc protrusion. There is mild spinal canal narrowing. Moderate right lateral recess narrowing with encroachment upon the descending right S1 nerves. Mild to moderate neural foraminal narrowing. Moderate facet arthropathy. Mild sacroiliac joint osteoarthritis. Small renal cysts. Impression: 1. At L3-4, severe spinal canal with moderate to severe neural foraminal stenosis. 2. At L4-5, severe spinal canal with moderate to severe left and [id number] right neural foraminal stenosis. 3. At L5-S1, right subarticular disc protrusion encroaches upon the descending right S1 nerves. 4. Moderate spondylosis at the remaining lumbar levels. Dictated by Dewayne Ryan MD @ 09/09/2023 7:19:26 AM Signed by:?Dewayne Ryan MD @09/09/2023 7:19:26 AM (Electronic Signature)
== END 2023-09-08 09:53 | disposition home or self-care (01) ==
LOC: MRI 09:54
PROVIDERS: PCP Family Medicine; Visit Provider Family Medicine
DX: M54.16 Radiculopathy, lumbar region (principal); M48.061 Spinal stenosis, lumbar region without neurogenic claudication; M48.07 Spinal stenosis, lumbosacral region
CPT/HCPCS: 72148

== ENCOUNTER 2023-09-24 11:55 | Emergency (ER) | payer MEDICARE, MEDICAID, SELFPAY ==
[2023-09-24 12:00] VITALS: BP 109/63; PULSE 55; RESP 18; TEMP 36.2; O2SAT 98
--- NOTE | 2023-09-24 12:04 | ED_ITS ---
HPI - General Adult General Date Seen: 09/24/23 Chief complaint: Weakness Stated complaint: weakness Time Seen by Provider: 09/24/23 12:04 History of Present Illness HPI narrative: 78-year-old female with a history of CHF with preserved ejection fraction, coronary disease with OR, CABG, pulmonary hypertension, anemia, hyperlipidemia, lumbar radiculopathy Review of medical record-was seen in the ER last January for weakness associated with diarrhea. Most recent primary care visit was about 6 weeks ago on 08/11. Primary concern was lumbar radiculopathy. Records also indicate history of coronary disease. OR 10/2022 with stent Old myocardial infarction (ICD-10)Chronic heart failure with preserved ejection fraction (Acute) - history of CAD with NSTEMI in 2009; sees Dr. Leon of Cardiology. Last TTE 11/2021 Final Impressions: 1. Normal left ventricular size, mildly increased wall thickness, normal global systolic function, calculated EF of 70 %. 2. Right ventricular cavity size is normal, global systolic RV function is normal. 3. Moderately enlarged left atrium. 4. The aortic valve is trileaflet and sclerotic, no stenosis and trivial regurgitation. 5. The mitral valve is sclerotic, mild mitral regurgitation. According to the patient's daughter she was recently hospitalized at [facility] for a kidney stone with a urinary tract infection and had a stent. Records from [facility] Discharge summary from [facility] hospital: Sendy Moses is a 77 y.o. female who presented to the ER 08/26/2023 with L flank pain and was found to have an obstructing L ureteral stone with complicated UTI. Obstructing L ureteral stone with hydronephrosis Severe sepsis 2/2 complicated pansensitive E.coli UTI Presented to the ER with abdominal pain. Found to have 7 mm calculus proximal left ureteral stone on CT with mild left hydronephrosis. UA infected. Urology consulted and underwent stent placement 08/27/2023 without complication. Not initially septic but lactic acidosis with fluid responsive hypotension post op. Treated with ceftriaxone. Urine culture grew pansensitive E.coli. Narrowed to Keflex prior to DC. - Keflex BID x2 weeks - cystoscopy with stone removal in 2 weeks Incidental low risk pulmonary nodule 4 mm right middle lobe on CTA - Guidelines recommend no follow up. Patient denies use and history of use of tobacco products. Chronic Issues: CAD s/p CABG and stenting - Remote. Continue ASA, plavix. Resume metoprolol on DC. HLD - Continue statin HFpEF - resume lisinopril, lasix on DC Procedures Performed / Pertinent Tests and Results: CTA chest, abdomen, pelvis 1. 7 mm calculus proximal left ureter. Mild left hydronephrosis. 2. Bilateral renal calculi. 3. Cholelithiasis. 4. 4 mm right middle lobe pulmonary nodule. Patient reports that she just has not been feeling good ever since that day she was discharged from [facility]. She has generalized body aches. She is fatigued and weak. She is noting that her urine is sometimes dark colored yellow and sometimes blood tinged. She says she went back to the [facility] ER about 3 days after she was discharged. She was apparently evaluated in the ER and there was a plan to get her admitted overnight for observation, but since she was not really getting checked by the nurses, she left the ER and did not stay overnight. Daughter says that they think her blood pressure might have been low sore the nurses told her not to take her lisinopril. Unclear why her blood pressure was low and unclear how low it was. She has been feeling unwell for past 4 weeks. She finished her 2 week course of oral antibiotics but did not feel any better. She still has some pain in her left side. She also notes that sometimes it hurts when she urinates. No other symptoms. No cough. No trouble breathing. No chest pain. No headache. No stuffy nose. No sore throat. No swelling in her legs. Her daughter had called to schedule her urology appointment for stent removal and that is scheduled to happen on October 04. The patient says she ?hates [facility]? because of how long she had a weight last time she was there and that is why she came here to [place]. Related Data Home Medications Medication Instructions Recorded Confirmed aspirin 81 mg tablet,delayed 81 mg PO DAILY 10/12/22 08/11/23 release Previous Rx's Medication Instructions Recorded clopidogrel 75 mg tablet 75 mg PO DAILY #90 tabs 12/10/22 furosemide 20 mg tablet 20 mg PO DAILY #90 tabs 12/10/22 lisinopril 2.5 mg tablet 2.5 mg PO DAILY #90 tabs 12/10/22 metoprolol succinate 25 mg 12.5 mg (1/2 x 25 mg) PO DAILY #45 12/10/22 tablet,extended release 24 hr tabs rosuvastatin 10 mg tablet 10 mg PO QDAY #90 tabs 12/10/22 nitroglycerin 0.4 mg sublingual 0.4 mg sublingual Q5M #25 tabs 08/04/23 tablet gabapentin 300 mg capsule 300 mg PO TID #90 caps 08/11/23 cefdinir 300 mg capsule 300 mg PO BID 14 days #28 caps 09/24/23 Allergies Allergy/AdvReac Type Severity Reaction Status Date / Time No Known Allergies Allergy Verified 08/11/23 14:44 [facility] Medical History History of myocardial infarction (02/04/10) ?I25.2 - Old myocardial infarction (ICD-10) Chronic heart failure with preserved ejection fraction ?I50.32 - Chronic diastolic (congestive) heart failure (ICD-10) Hyperlipidemia ?E78.5 - Hyperlipidemia, unspecified (ICD-10) Pulmonary hypertension ?I27.20 - Pulmonary hypertension, unspecified (ICD-10) Coronary artery disease ?I25.10 - Atherosclerotic heart disease of [place] coronary artery without angina pectoris (ICD-10) COVID-19 virus infection ?U07.1 - COVID-19 (ICD-10) 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.1 - Rheumatic tricuspid insufficiency (ICD-10) Mitral valve insufficiency ?I34.0 - Nonrheumatic mitral (valve) insufficiency (ICD-10) Left ventricular hypertrophy ?I51.7 - Cardiomegaly (ICD-10) History of migraine ?Z86.69 - Personal history of other diseases of the nervous system and sense organs (ICD-10) Surgical History History of coronary artery bypass surgery (2009) ?Z95.1 - Presence of aortocoronary bypass graft (ICD-10) History of cataract extraction (07/2017) ?Z98.49 - Cataract extraction status, unspecified eye (ICD-10) Social History Narrative: Grew up in [facility], in the [place] since the [place]. Hmong is primary language. Lives with daughter Vishal and family (near [place], they have a farm near [place]). Had 10 children, 4 living children now. 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 Nonsmoker, no ETOH. Vishal would be medical decision maker if needed; requests Full Code status. What is your current living situation?: I presently have a place to live Problems where you live: no known problems In the past 12 months, utilities in danger of being shut off: no In the past 12 mos, have been you worried that your food would run out before you had money to buy more?: never true In the past 12 mos, the food you bought just didn't last and you didn't have money to buy more?: never true Highest level of school completed/degree received: never attended/kindergarten only Smoking Status: Never smoker Do you use any of these nicotine containing products: None Second hand tobacco smoke exposure: No How often do you have a drink containing alcohol: never How often do you have six or more drinks on one occasion: Never AUDIT-C Alcohol total score: 0 Non-prescribed substance use: denies use Caffeine: No How often does anyone, including family, friends and others, physically hurt you : How often does anyone, including family, friends and others, insult or talk down to you: How often does anyone, including family, friends and others, threaten you with harm: How often does anyone, including family, friends and others, scream or curse at you: Little interest or pleasure in doing things: not at all Feeling down, depressed, or hopeless: not at all service: No Exam Narrative: Exam Narrative: Constitutional: Appears well-developed and well-nourished. Alert. Conversant with her daughter in Hmong. Her daughter interprets Hmong to Lithuanian . Non toxic. HENT: Head: Atraumatic. Nose: Nose normal. Mouth/Throat: Oral mucosa is clear and moist. no trismus. Pharynx normal. Tonsils symmetric. No tonsillar enlargement, erythema, or exudate. Eyes: Conjunctivae normal. EOM normal. Pupils equal, round, and reactive to light. No scleral icterus. Neck: Normal range of motion. Neck supple. No tracheal deviation present. Cardiovascular: Normal rate, regular rhythm. No gallop. No friction rub. No murmur heard. Symmetric radial artery pulses Pulmonary/Chest: Effort normal. No stridor. No respiratory distress. No wheezes. No rales. No rhonchi . No tenderness. Abdominal: Soft. Bowel sounds normal. No distension. No mass. No tenderness. No rebound. No guarding. Left CVA tenderness. Musculoskeletal: RUE: Normal range of motion. No tenderness. No deformity LUE: Normal range of motion. No tenderness. No deformity RLE: Normal range of motion. No edema. No tenderness. No deformity LLE: Normal range of motion. No edema. No tenderness. No deformity Neurological: Alert and oriented to person, place, and time. Normal strength. CN II-VII intact. No sensory deficit. GCS eye subscore is 4. GCS verbal subscore is 5. GCS motor subscore is 6. Normal coordination . Cognition normal. speech seems fluent. Skin: Skin is warm and dry. No rash noted. No pallor. Normal capillary refill. Psychiatric: Normal mood. Normal affect. Const: Vital Signs, click to edit/add: Vital Signs - 24 hr 09/24/23 12:00 09/24/23 14:13 Temperature 97.2 F L 97.0 F L Pulse Rate [Pulse Oximeter] 55 L 55 L Respiratory Rate 18 18 Blood Pressure [Ri ght Upper Arm] 109/63 100/69 Pulse Oximetry 98 95 Oxygen Delivery Me thod Room Air Room Air Course Vital Signs Vital signs: Initial Vital Signs Temperature 97.2 F L 09/24/23 12:00 Temperature Source Temporal Artery Scan 09/24/23 12:00 Pulse Rate 55 L 09/24/23 12:00 Respiratory Rate 18 09/24/23 12:00 Blood Pressure 109/63 09/24/23 12:00 Blood Pressure Mean 78 09/24/23 12:00 Blood Pressure Position Supine 09/24/23 12:00 Pulse Oximetry 98 09/24/23 12:00 Oxygen Delivery Method Room Air 09/24/23 12:00 Vital Signs Temperature 97.2 F L 09/24/23 12:00 Pulse Rate 55 L 09/24/23 12:00 Respiratory Rate 18 09/24/23 12:00 Blood Pressure 109/63 09/24/23 12:00 Pulse Oximetry 98 09/24/23 12:00 Oxygen Delivery Method Room Air 09/24/23 12:00 Temperature 97.0 F L 09/24/23 14:13 Pulse Rate 55 L 09/24/23 14:13 Respiratory Rate 18 09/24/23 14:13 Blood Pressure 100/69 09/24/23 14:13 Pulse Oximetry 95 09/24/23 14:13 Oxygen Delivery Method Room Air 09/24/23 14:13 Medications Administered Medications: Discontinued Medications Generic Name Dose Route Start Last Admin Trade Name Jorge PRN Reason Stop Dose Admin Acetaminophen 1,000 mg 09/24/23 12:32 09/24/23 13:22 Acetaminophen 500 Mg Tablet PO 09/24/23 12:33 1,000 mg ONCE ONE Administration Sodium Chloride 1,000 mls @ 1,000 mls/hr 09/24/23 12:45 09/24/23 14:56 0.9 % Sodium Chloride 1000 Ml IV 09/24/23 13:44 Infused .Q1H BOLIVAR Infusion Ceftriaxone Sodium 1 gm/ 100 mls @ 200 mls/hr 09/24/23 14:15 09/24/23 14:56 Sodium Chloride IVPB 09/24/23 14:16 Infused ONCE ONE Infusion Medical Decision Making [facility] Narrative Medical decision making narrative: 78-year-old female presenting to the ER today with her daughter with concern that she has had body aches and generalized weakness ongoing since she was discharged from [facility] on August 26. She really can not describe to me any new or worsening symptoms the triggered her ER visit today. Main symptoms are generalized body aches, mild pain with urination, generalized f atigue and just not feeling well. She is weak. Differential is quite broad. No focal deficits to suggest stroke. No headache. She has sinus bradycardia but is hemodynamically stable and is afebrile. Main concern would be for possible urinary infection or complication of her recent kidney stone and stenting procedure. Urinalysis shows positive nitrite, 50-100 RBC and 25-50 WBC. Although hematuria and pyuria can be seen in the setting of indwelling ureteral stent, right eye take these findings to indicate probable UTI especially with her symptoms and dysuria and ongoing weakness body aches. Will start with IV Rocephin. Urine culture from her previous hospitalization showed pansensitive E coli. CT scan today shows that her ureteral stent is in place. There is some mild left hydronephrosis but the stent is apparently going from the renal pelvis down to the bladder. There is an adjacent kidney stone. There is some mild stranding around the left ureter which I think could represent signs of infection, although could be due to the presence of the stent. Although were concerned about UTI, white count is normal, she is not febrile, lactic acid is normal. Blood pressure normal. No evidence for sepsis or septic shock yet. Kidney function shows normal BUN and creatinine. Electrolytes normal. EKG shows sinus bradycardia without ischemia. Screening troponin is negative. No cough or other respiratory symptoms. No swelling in her legs. Lung sounds are clear. No evidence for CHF. I called [facility] to their patient access center to for a urology consult. They indicate that the patient actually has an appointment scheduled for outpatient surgery today. This was unknown to the patient. Her daughter says that there point was was scheduled for October 04 to have her stent removed. I had a couple of conversations with the on-call PA for Urology. This was a difficult interaction. The PA wants to review the patient's CT scan before she will make any recommendation about whether not the patient should come there to be seen. Unfortunately they were not able to see the CT scan because we do not sure electronic medical record software and were not able to push the images to [facility]. Despite that, I wanted to get advice from Urology. Ultimately the home I tried to contact his PA a couple of times and was unsuccessful. Subsequently later in the afternoon we were able to get a call back from another PA. at this point the patient really is not showing signs of any acute decompensation and she is hemodynamically stable and laboratory workup is reassuring. We started the patient on IV antibiotics here in the ER. I instructed the PA that I would like to send the patient home on oral antibiotics and that is I would like to have the urology clinic contact the patient and her daughter at home to set up an a follow-up appointment for Wednesday. A reiterated to the PA on-call that there has been substantial difficulty in communicating with this patient as an outpatient but that her daughter is fluently bilingual and intelligent and medically savvy and would be happy to take the call and assure that the patient gets to a checkup next week. They will have their clinic call the patient to arrange follow up. Lab Data Labs: Lab Results 09/24/23 09/24/23 09/24/23 Range/Units 12:50 13:05 13:12 WBC 6.80 (4.50-11.00) K/uL RBC 4.30 (4.00-5.20) m/uL Hgb 11.3 L (12.0-16.0) gm/dL Hct 36.6 (33.0-51.0) % MCV 85 (80-100) fL MCH 26 (26-34) pg MCHC 31 L (32-36) gm/dL RDW Coeff of Mandi 16.0 H (11.5-15.5) % Plt Count 193 (140-440) K/uL Neut % (Auto) 67.5 (42.0-72.0) % Lymph % (Auto) 19.1 L (20-44) % [place] % (Auto) 8.4 (0.0-11.0) % Eos % (Auto) 4.3 (0.0-7.0) % Baso % (Auto) 0.3 (0.0-3.0) % Neut # (Auto) 4.59 (1.7-7.0) K/uL Lymph # (Auto) 1.30 (0.90-2.90) K/uL [place] # (Auto) 0.60 (0.00-0.90) K/UL Eos # (Auto) 0.29 (0.00-0.50) K/uL Baso # (Auto) 0.02 (0.00-0.30) K/uL Abs Immat Gran (auto) 0.03 (0.00-0.30) K/uL Imm/Tot Granulo (auto) 0.4 % Sodium 137 (135-149) mmol/L Potassium 4.1 (3.6-5.1) mmol/L Chloride 102 (96-114) mmol/L Carbon Dioxide 29 (20-32) mmol/L Anion Gap 6 L (7-15) mEq/L BUN 18 (7-30) mg/dL Creatinine 0.5 (0.5-1.5) mg/dL Estimated GFR 95 ml/min Glucose 113 (60-115) mg/dL Lactate 1.0 (0.5-1.9) mmol/L Calcium 8.9 (8.4-10.6) mg/dL Troponin I 0.02 (0.01-0.04) ng/mL Urine Color Dark yellow (Yellow) Urine Appearance Cloudy A (Clear) Urine pH 7.0 (5.0-8.5) Ur Specific [place] 1.020 (1.000-1.030) Urine Protein 2+ A (Negative) Urine Glucose (UA) Negative (Negative) Urine Ketones Negative (Negative) Urine Blood 2+ A (Negative) Urine Nitrite Positive A (Negative) Urine Bilirubin Negative (Negative) Urine Urobilinogen 1.0 (0.2-1.0) Ur Leukocyte Esterase 3+ A (Negative) Urine RBC 50-100 A (0-2) Urine WBC 25-50 A (0-5) Urine WBC Clumps Few A (None) Ur Squamous Epith Cells Moderate A (None-Few) SARS-CoV-2 (PCR) Negative SARS-CoV-2 (Negative) Influenza Type A (PCR) Negative PCR FLU A (Negative) Influenza Type B (PCR) Negative PCR FLU B (Negative) RSV (PCR) Negative PCR RSV (Negative) Imaging Data CT scan - abdomen: Attestation: I have reviewed the pertinent imaging results. Radiologist's impression: IMPRESSION: 1. Nephrolithiasis with minimal dilatation of the left collecting system. Left ureteral stent present extending from the left renal pelvis to the bladder. 3 x 2 millimeter stone noted within the proximal left ureter adjacent to the stent. Mild fat stranding surrounding the left ureter. This is presumed secondary to recent instrumentation although note that the differential diagnosis includes infection. 2. Cholelithiasis without CT evidence of cholecystitis. 3. Severe atherosclerotic calcification. ECG Data Attestation: I personally reviewed and interpreted this ECG as follows: Interpretation: Sinus bradycardia. Rate 56 OR 180 QRS axis right bundle-branch block. Normal axis. No pathologic Q-waves. ST segment/T wave: No ST segment elevation or depression. T-wave inversions V1 and V2 discordant from QRS axis. QTc: 478 Discharge Plan Discharge Clinical Impression: Acute UTI Patient Disposition: Home, Self-Care Condition: Stable Instructions: Urinary Tract Infection in Older Adults (ED) Additional Instructions: Please start back on antibiotics. Take her next dose of antibiotic tomorrow morning (the antibiotic we gave her in her IV will cover her for today and tonight). And continue the antibiotics twice daily for 14 days. If she has any worsening or conditions such as worsening pain, weakness, fever, vomiting, confusion, or if you have any concerns, bring her back to the ER or take [facility] to the [facility] away to be re-evaluated. You should receive a phone call from the urology team at [facility] either today or on Wednesday to get her an appointment for recheck on Wednesday. If you do not receive a phone call from the urology team, call Wednesday morning at 9:00 a.m. to make an appointment. Prescriptions: New cefdinir 300 mg capsule 300 mg PO BID 14 Days Qty: 28 0RF No Action gabapentin 300 mg capsule 300 mg PO TID Qty: 90 1RF aspirin 81 mg tablet,delayed release (DR/EC) 81 mg PO DAILY rosuvastatin 10 mg tablet 10 mg PO QDAY Qty: 90 3RF metoprolol succinate 25 mg tablet extended release 24 hr 12.5 mg PO DAILY Qty: 45 3RF furosemide 20 mg tablet 20 mg PO DAILY Qty: 90 3RF clopidogrel 75 mg tablet 75 mg PO DAILY Qty: 90 3RF lisinopril 2.5 mg tablet 2.5 mg PO DAILY Qty: 90 3RF nitroglycerin 0.4 mg tablet, sublingual 0.4 mg sublingual Q5M Qty: 25 0RF Follow Up/Referrals: John San MD [Primary Care Provider] - Stand Alone Forms: [employer] Info Instructions
--- NOTE | 2023-09-24 12:32 | CT_ITS ---
Patient: PILAR MESSINA Facility:?[facility] Patient ID:?[id number] Site Patient ID:?[id number]. Site :?[id number] Study:?CT-Abdomen/Pelvis WITHOUT-09/24/2023 12:51:17 PM Ordering Physician:VILMA WISE Final Report: INDICATION: Body aches and weakness TECHNIQUE: Axial images were obtained from the diaphragm to the pubic symphysis. Reformats were obtained in the coronal and sagittal plane. IV Contrast: None Oral Contrast: None COMPARISON: Abdomen and pelvis CT 02/09/2023 FINDINGS: Lower chest: Stable pulmonary nodule in the right middle lobe measuring 3 millimeters. Status post median sternotomy with severe coronary atherosclerosis. Liver: Unremarkable. Normal in size and attenuation. No masses. Gallbladder and bile ducts: Numerous gallstones without pericholecystic inflammation. Spleen: Unremarkable. Normal in size without mass. Pancreas: Diffuse pancreatic atrophy. Adrenal glands: Unremarkable. No nodules. Kidneys: Nephrolithiasis with minimal dilatation of the left collecting system. Left ureteral stent extends from the renal pelvis to the bladder. Note is made of a stone adjacent to the stent measuring 3 x 2 millimeters at the proximal left ureter (series 2, image 72). Mild fat stranding adjacent to the left ureter. Vasculature: Atherosclerosis without abdominal aortic aneurysm. GI tract: The stomach is unremarkable. No dilated loops of large or small intestine. Pelvis: Unremarkable. Bones: Degenerative disc disease lumbar spine with grade 1 anterolisthesis L4-5, likely secondary to facet arthropathy. IMPRESSION: 1. Nephrolithiasis with minimal dilatation of the left collecting system. Left ureteral stent present extending from the left renal pelvis to the bladder. 3 x 2 millimeter stone noted within the proximal left ureter adjacent to the stent. Mild fat stranding surrounding the left ureter. This is presumed secondary to recent instrumentation although note that the differential diagnosis includes infection. 2. Cholelithiasis without CT evidence of cholecystitis. 3. Severe atherosclerotic calcification. Please note that all CT scans at this facility use dose modulation, iterative reconstruction, and/or weight-based dosing when appropriate to reduce radiation dose to as low as reasonably achievable. Dictated by Joshua Miller MD @ 09/24/2023 1:16:06 PM Signed by:?Joshua Miller MD @09/24/2023 1:16:06 PM (Electronic Signature)
[2023-09-24 13:13] LABS: Appearance Urine Cloudy (Clear); Bilirubin Urine Negative (Negative); Blood Urine 2+ (Negative); Color Urine Dark yellow (Yellow); Glucose Urine Negative (Negative); Ketones Urine Negative (Negative); Leukocyte Esterase Urine 3+ (Negative); Nitrite Urine Positive (Negative); Protein Urine 2+ (Negative)
[2023-09-24] MEDS: 0.9 % SODIUM CHLORIDE 1000 ml 1,000 ML IV (13:19)
[2023-09-24] MEDS: ACETAMINOPHEN 500 MG TABLET 1000 MG PO (13:22)
[2023-09-24 13:24] LABS: Basophils Absolute Auto 0.02 K/uL (0.00-0.30); Basophils Percent Auto 0.3 % (0.0-3.0); Eosinophils Absolute Auto 0.29 K/uL (0.00-0.50); Eosinophils Percent Auto 4.3 % (0.0-7.0); Hematocrit 36.6 % (33.0-51.0); Hemoglobin* 11.3 gm/dL (12.0-16.0); Immature Granulocytes Abs Auto 0.03 K/uL (0.00-0.30); Immature Granulocytes Pct Auto 0.4 %; Lymphocytes Percent Auto 19.1 % (20-44); Mean Corpuscular HGB Conc 31 gm/dL (32-36); Mean Corpuscular Hemoglobin 26 pg (26-34); Mean Corpuscular Volume 85 fL (80-100); Monocytes Percent Auto 8.4 % (0.0-11.0); Neutrophils Absolute Auto 4.59 K/uL (1.7-7.0); Neutrophils Percent Auto 67.5 % (42.0-72.0); Platelet Count* 193 K/uL (140-440)
[2023-09-24 13:26] LABS: RBC Urine 50-100 (0-2); WBC Urine 25-50 (0-5)
[2023-09-24 13:27] LABS: Slide Review Reflex No
[2023-09-24 13:40] LABS: Chloride* 102 mmol/L (96-114); Sodium* 137 mmol/L (135-149)
[2023-09-24 13:41] LABS: Potassium* 4.1 mmol/L (3.6-5.1)
[2023-09-24 13:43] LABS: Creatinine* 0.5 mg/dL (0.5-1.5); Estimated Glomerular Filt Rate 95 ml/min
[2023-09-24 13:44] LABS: Anion Gap 6 mEq/L (7-15); Blood Urea Nitrogen* 18 mg/dL (7-30); Calcium* 8.9 mg/dL (8.4-10.6); Carbon Dioxide* 29 mmol/L (20-32); Glucose* 113 mg/dL (60-115)
[2023-09-24 13:56] LABS: Troponin I* 0.02 ng/mL (0.01-0.04)
[2023-09-24 13:59] LABS: PCR FLU A Negative PCR FLU A (Negative); PCR FLU B Negative PCR FLU B (Negative); PCR RSV Negative PCR RSV (Negative); SARS PCR* Negative SARS-CoV-2 (Negative)
[2023-09-24 14:13] VITALS: BP 100/69; PULSE 55; RESP 18; TEMP 36.1; O2SAT 95
[2023-09-24] MEDS: cefTRIAXone 1 GM in 0.9 % SODIUM CHLORIDE Mini-bag 100 ML IVPB (14:24)
[2023-09-25 15:08] LABS: Bacteria Urine Moderate; Squamous Epithelial Cell Urine Few (None-Few)
--- NOTE | 2023-09-29 00:50 | ED.GENADULT ---
HPI - General Adult General Chief complaint: Weakness Stated complaint: weakness Time Seen by Provider: 09/24/23 12:04 History of Present Illness HPI narrative: Was in ER on 09/23. Urine culture growing Klebsiella. Sent home on Omnicef. This isolate is sensitive to cephalosporins. Related Data Home Medications Medication Instructions Recorded Confirmed aspirin 81 mg tablet,delayed 81 mg PO DAILY 10/12/22 08/11/23 release Previous Rx's Medication Instructions Recorded clopidogrel 75 mg tablet 75 mg PO DAILY #90 tabs 12/10/22 furosemide 20 mg tablet 20 mg PO DAILY #90 tabs 12/10/22 lisinopril 2.5 mg tablet 2.5 mg PO DAILY #90 tabs 12/10/22 metoprolol succinate 25 mg 12.5 mg (1/2 x 25 mg) PO DAILY #45 12/10/22 tablet,extended release 24 hr tabs rosuvastatin 10 mg tablet 10 mg PO QDAY #90 tabs 12/10/22 nitroglycerin 0.4 mg sublingual 0.4 mg sublingual Q5M #25 tabs 08/04/23 tablet gabapentin 300 mg capsule 300 mg PO TID #90 caps 08/11/23 cefdinir 300 mg capsule 300 mg PO BID 14 days #28 caps 09/24/23 Allergies Allergy/AdvReac Type Severity Reaction Status Date / Time No Known Allergies Allergy Verified 08/11/23 14:44 [facility] Medical History History of myocardial infarction (02/04/10) ?I25.2 - Old myocardial infarction (ICD-10) Chronic heart failure with preserved ejection fraction ?I50.32 - Chronic diastolic (congestive) heart failure (ICD-10) Hyperlipidemia ?E78.5 - Hyperlipidemia, unspecified (ICD-10) Pulmonary hypertension ?I27.20 - Pulmonary hypertension, unspecified (ICD-10) Coronary artery disease ?I25.10 - Atherosclerotic heart disease of [place] coronary artery without angina pectoris (ICD-10) COVID-19 virus infection ?U07.1 - COVID-19 (ICD-10) 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.1 - Rheumatic tricuspid insufficiency (ICD-10) Mitral valve insufficiency ?I34.0 - Nonrheumatic mitral (valve) insufficiency (ICD-10) Left ventricular hypertrophy ?I51.7 - Cardiomegaly (ICD-10) History of migraine ?Z86.69 - Personal history of other diseases of the nervous system and sense organs (ICD-10) Surgical History History of coronary artery bypass surgery (2009) ?Z95.1 - Presence of aortocoronary bypass graft (ICD-10) History of cataract extraction (07/2017) ?Z98.49 - Cataract extraction status, unspecified eye (ICD-10) Social History Narrative: Grew up in [facility], in the since the 1970s. Hmong is primary language. Lives with daughter Vishal and family (near [place], they have a farm near [place] Had 10 children, 4 living children now. 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 Nonsmoker, no ETOH. Vishal would be medical decision maker if needed; requests Full Code status. What is your current living situation?: I presently have a place to live Problems where you live: no known problems In the past 12 months, utilities in danger of being shut off: no In the past 12 mos, have been you worried that your food would run out before you had money to buy more?: never true In the past 12 mos, the food you bought just didn't last and you didn't have money to buy more?: never true Highest level of school completed/degree received: never attended/kindergarten only Smoking Status: Never smoker Do you use any of these nicotine containing products: None Second hand tobacco smoke exposure: No How often do you have a drink containing alcohol: never How often do you have six or more drinks on one occasion: Never AUDIT-C Alcohol total score: 0 Non-prescribed substance use: denies use Caffeine: No How often does anyone, including family, friends and others, physically hurt you: How often does anyone, including family, friends and others, insult or talk down to you: How often does anyone, including family, friends and others, threaten you with harm: How often does anyone, including family, friends and others, scream or curse at you: Little interest or pleasure in doing things: not at all Feeling down, depressed, or hopeless: not at all service: No Course Vital Signs Vital signs: Initial Vital Signs Temperature 97.2 F L 09/24/23 12:00 Temperature Source Temporal Artery Scan 09/24/23 12:00 Pulse Rate 55 L 09/24/23 12:00 Respiratory Rate 18 09/24/23 12:00 Blood Pressure 109/63 09/24/23 12:00 Blood Pressure Mean 78 09/24/23 12:00 Blood Pressure Position Supine 09/24/23 12:00 Pulse Oximetry 98 09/24/23 12:00 Oxygen Delivery Method Room Air 09/24/23 12:00 Vital Signs Temperature 97.2 F L 09/24/23 12:00 Pulse Rate 55 L 09/24/23 12:00 Respiratory Rate 18 09/24/23 12:00 Blood Pressure 109/63 09/24/23 12:00 Pulse Oximetry 98 09/24/23 12:00 Oxygen Delivery Method Room Air 09/24/23 12:00 Temperature 97.0 F L 09/24/23 14:13 Pulse Rate 55 L 09/24/23 14:13 Respiratory Rate 18 09/24/23 14:13 Blood Pressure 100/69 09/24/23 14:13 Pulse Oximetry 95 09/24/23 14:13 Oxygen Delivery Method Room Air 09/24/23 14:13 Medications Administered Medications: Discontinued Medications Generic Name Dose Route Start Last Admin Trade Name Jorge PRN Reason Stop Dose Admin Acetaminophen 1,000 mg 09/24/23 12:32 09/24/23 13:22 Acetaminophen 500 Mg Tablet PO 09/24/23 12:33 1,000 mg ONCE ONE Administration Sodium Chloride 1,000 mls @ 1,000 mls/hr 09/24/23 12:45 09/24/23 14:56 0.9 % Sodium Chloride 1000 Ml IV 09/24/23 13:44 Infused .Q1H BOLIVAR Infusion Ceftriaxone Sodium 1 gm/ 100 mls @ 200 mls/hr 09/24/23 14:15 09/24/23 14:56 Sodium Chloride IVPB 09/24/23 14:16 Infused ONCE ONE Infusion Medical Decision Making Lab Data Labs: Lab Results 09/24/23 09/24/23 09/24/23 Range/Units 12:50 13:05 13:12 WBC 6.80 (4.50-11.00) K/uL RBC 4.30 (4.00-5.20) m/uL Hgb 11.3 L (12.0-16.0) gm/dL Hct 36.6 (33.0-51.0) % MCV 85 (80-100) fL MCH 26 (26-34) pg MCHC 31 L (32-36) gm/dL RDW Coeff of Mandi 16.0 H (11.5-15.5) % Plt Count 193 (140-440) K/uL Neut % (Auto) 67.5 (42.0-72.0) % Lymph % (Auto) 19.1 L (20-44) % [place] % (Auto) 8.4 (0.0-11.0) % Eos % (Auto) 4.3 (0.0-7.0) % Baso % (Auto) 0.3 (0.0-3.0) % Neut # (Auto) 4.59 (1.7-7.0) K/uL Lymph # (Auto) 1.30 (0.90-2.90) K/uL [place] # (Auto) 0.60 (0.00-0.90) K/UL Eos # (Auto) 0.29 (0.00-0.50) K/uL Baso # (Auto) 0.02 (0.00-0.30) K/uL Abs Immat Gran (auto) 0.03 (0.00-0.30) K/uL Imm/Tot Granulo (auto) 0.4 % Sodium 137 (135-149) mmol/L Potassium 4.1 (3.6-5.1) mmol/L Chloride 102 (96-114) mmol/L Carbon Dioxide 29 (20-32) mmol/L Anion Gap 6 L (7-15) mEq/L BUN 18 (7-30) mg/dL Creatinine 0.5 (0.5-1.5) mg/dL Estimated GFR 95 ml/min Glucose 113 (60-115) mg/dL Lactate 1.0 (0.5-1.9) mmol/L Calcium 8.9 (8.4-10.6) mg/dL Troponin I 0.02 (0.01-0.04) ng/mL Urine Color Dark yellow (Yellow) Urine Appearance Cloudy A (Clear) Urine pH 7.0 (5.0-8.5) Ur Specific [place] 1.020 (1.000-1.030) Urine Protein 2+ A (Negative) Urine Glucose (UA) Negative (Negative) Urine Ketones Negative (Negative) Urine Blood 2+ A (Negative) Urine Nitrite Positive A (Negative) Urine Bilirubin Negative (Negative) Urine Urobilinogen 1.0 (0.2-1.0) Ur Leukocyte Esterase 3+ A (Negative) Urine RBC 50-100 A (0-2) Urine WBC 25-50 A (0-5) Urine WBC Clumps MEDICAL BILLING SUPERVISOR Ur Squamous Epith Cells Few (None-Few) Urine Bacteria Moderate A (None) SARS-CoV-2 (PCR) Negative SARS-CoV-2 (Negative) Influenza Type A (PCR) Negative PCR FLU A (Negative) Influenza Type B (PCR) Negative PCR FLU B (Negative) RSV (PCR) Negative PCR RSV (Negative) Discharge Plan Discharge Clinical Impression: Acute UTI Patient Disposition: Home, Self-Care Condition: Stable Instructions: Urinary Tract Infection in Older Adults (ED) Additional Instructions: Please start back on antibiotics. Take her next dose of antibiotic tomorrow morning (the antibiotic we gave her in her IV will cover her for today and ton). And continue the antibiotics twice daily for 14 days. If she has any worsening or conditions such as worsening pain, weakness, fever, vomiting, confusion, or if you have any concerns, bring her back to the ER or take [facility] to the [facility] at [facility] right away to be re-evaluated. You should receive a phone call from the urology team at [facility] either today or on Wednesday to get her an appointment for recheck on Wednesday. If you do not receive a phone call from the urology team, call Wednesday morning at 9:00 a.m. to make an appointment. Prescriptions: New cefdinir 300 mg capsule 300 mg PO BID 14 Days Qty: 28 0RF No Action gabapentin 300 mg capsule 300 mg PO TID Qty: 90 1RF aspirin 81 mg tablet,delayed release (DR/EC) 81 mg PO DAILY rosuvastatin 10 mg tablet 10 mg PO QDAY Qty: 90 3RF metoprolol succinate 25 mg tablet extended release 24 hr 12.5 mg PO DAILY Qty: 45 3RF furosemide 20 mg tablet 20 mg PO DAILY Qty: 90 3RF clopidogrel 75 mg tablet 75 mg PO DAILY Qty: 90 3RF lisinopril 2.5 mg tablet 2.5 mg PO DAILY Qty: 90 3RF nitroglycerin 0.4 mg tablet, sublingual 0.4 mg sublingual Q5M Qty: 25 0RF Follow Up/Referrals: John San MD [Primary Care Provider] - Stand Alone [facility]: [facility] Inst[facility]
== END 2023-09-24 16:50 | disposition home or self-care (01) ==
PROVIDERS: Emergency Provider Emergency Medicine; PCP Family Medicine
DX: N39.0 Urinary tract infection, site not specified (principal)
CPT/HCPCS: 36415; 74176; 80048; 81001; 83605; 84484; 85025; 87040; 87086; 87186; 87631; 93005; 96365; 99281; 99284; 99285; A9270; J0696; J7030

== ENCOUNTER 2023-11-04 21:31 | Emergency (ER) | payer MEDICARE, MEDICAID, SELFPAY ==
[2023-11-04 21:48] VITALS: BP 120/65; PULSE 89; RESP 20; TEMP 36.6; O2SAT 96
--- OUTSIDE RECORDS SUMMARY | 2023-11-04 22:48 | XMS_ITS | Encounter Summary ---
Author Name Unknown Organization [facility] Address [id number], [place] [address] Care Team Providers Care Catheterization Laboratory Technician Name Role Phone No Primary/Referring, Phy Primary Care Provider Unavailable Reason for Referral * Procedure/Equipment (Routine) - Incomplete Specialty Diagnoses / Procedures Referred By Alfonso t Referred To Contact Diagnoses Nephrolithiasis Procedures US Renal W Bladder Masha Sheppard PA-C [address] [place] [id number] Referral ID Status Reason Start Date Expiration Date V isits Requested Visits Authorized [id number] Incomplete 11/04/2023 02/02/2025 1 1 Reason for Visit * Reason Comments POST-OP,EXAM Encounter Details Date Type Department Care Team (Latest Contact Info) Description 10/05/2023 10:00 AM CDT Office Visit [facility] [address] [place] [address]. [place] [address] Masha Sheppard PA-C [address] [place] [address] [phone] Nephrolithiasis (Primary Dx) Social History Tobacco Use Types Packs/Day Years Used Date Smoking Tobacco: Never Smokeless Tobacco: Never Tobacco Cessation:Counseling Given: Not Answered Humiliation, Afraid, Rape, and Kick questionnair e Answer Date Recorded Fear of Current or Ex-Partner Not on file Emotionally Abused Not on file 09/27/2023 Within the last year, have y ou been kicked, hit, slapped, or otherwise physically hurt by your partner or ex-partner? No 09/27/2023 Within the last year, have y ou been raped or forced to have any kind of sexual activity by your partner or ex-partner? No 09/27/2023 Housing Stability Vital Sign Answer [place] e Recorded In the last 12 months, was t here a time when you were not able to pay the mortgage or rent on time? No 09/27/2023 In the last 12 months, how many places have you lived? 1 09/27/2023 In the last 12 months, was t here a time when you did not have a steady place to sleep or slept in a [place] (including now)? No 09/27/2023 Sex and Gender Information Value Date Recorded Sex Assigned at Not on file Gender Identity Not on file Sexual Orientation Not on file documented as of this encounter Patient Instructions * Patient Instructions* Masha Sheppard PA-C - 10/05/2023 10:00 AM CDT Images from the original note were not included. Please get an ultrasound of your kidneys in 4 weeks and follow-up in clinic afterwards. A single dose of keflex was given to prevent infection Patient instructions for preventing kidney stones: Drink 2.5 liters (85 ounces) of fluids every day. Beverages without caffeine are best. The goal is to produce at least 2 liters (68 ounces) of urine every day. Limit meat. Eating a lot of meat increases your risk for kidney stones. Limit sodium (salt). Avoid convenience, canned and fast foods. They tend to be high in salt. When you eat too much salt, your body gets rid of it through urine, pulling calcium into your urine at thesame time. The extra calcium in your urine increases your risk for kidney stones. Eat foods rich in potassium, including papaya, cantaloupe, bananas, oranges, avocados, winter squash, sweet potatoes and other fresh fruits and vegetables. Limit foods and drinks that have added sugars, especially sucrose and fructose. (Check the Nutrition Facts label and ingredients list.) These sugars increase uric acid in your blood, which increases your risk for kidney stones. Add fresh lemon or assiniboine and sioux juice to your water. These fruits are high in citrate, which helps prevent kidney stones from forming. What is Cystoscopy? Cystoscopy, or cystourethroscopy, is a procedure that lets a urologist view the inside of the bladder and urethra in detail. Why is Cystoscopy Performed? It is often used to find causes of bleeding or blockage, or any abnormalities of the bladder and its lining. How is Cystoscopy Performed? Cystoscopy is most often done as an outpatient procedure. Before the procedure you will empty your bladder. Then you will be placed on an exam table. A liquid or gel local anesthetic may be used on your urethra. The average cystoscopy takes about 5 to 10 minutes. Cystoscopy ?? 2009 Aditi Nicolelow, [facility] has certain rights The cystoscope is inserted through the urethra into the bladder. The cystoscope is a thin, lighted tube with lenses. Most often it is bendable, but some models are rigid. Water or saline is infused through the cystoscope into the bladder. As the fluid fills the bladder, the bladder wall is stretched so the urologist can see clearly. What are the Results of Cystoscopy? The bladder wall should appear smooth, and the bladder should be normal size, shape and position. There should not be any blockages in the bladder or urethra. If any tissue appears abnormal, the cystoscope can be used to remove a small sample. In some cases, your healthcare provider will use the cystoscope to remove ureteral stents, treat scar tissues or blockages in the bladder or urethra or inject medications into the bladder and/or urethra. What Can I Expect after Cystoscopy? After the cystoscope is removed, your urethra and bladder may be sore and you may have a burning feeling for a few days. You may find some blood in your urine at first, but this should go away withina few days. You also may have burning or stinging when you urinate. You also may have increased urge to urinate or increase frequency of urination. If you still have pain, get a fever over 101?? F, or your urine is bright red and you are passing large blood clots, tell your health care provider. You have no dietary restrictions. Increase fluid intake is recommended. You have no activity restrictions unless you are told differently by your healthcare provider at the time of your appointment. Instructions Your follow up appointment will be scheduled with one of the urology care team members. This may beone of our physician assistants. They are always in direct communication with your physician who remains responsible for your urologic care at [facility]. Lab or Imaging Results If labs were ordered, you will receive the results via your [employer]) account if you have one. Results are automatically released to your [employer]) account once available. This means that you may see your results before we have had a chance to review them. After the results become available, comments from our team are typically posted to your [employer] account within 2-5 business days. We usually wait until all or nearly all of the lab results have returned and make a onetime comment rather than comment on each lab result individually. Please donot send a [employer] message requesting follow up/advice on labs or imaging that you have reviewed if we have not yet left comments for you. For Xray, CT test, and Ultrasound results, unless specifically noted, the results of these tests will be discussed at your next visit with your provider. Results will not be reviewed over the phone. If test results require immediate action, we will contact you. If you do not have a [employer] account, results typically arrive by mail within 4-6 weeks. Medication Refills For medication refills you may need to be seen once a year. For your specific follow up please discuss with your provider. If you need refills, please contact your pharmacist. They will send a refill request for us to review. Please allow 3-5 business days for us to process all refill requests. Thank you for continuing to trust us with your care. We are your partner. Our Urology team is always striving to improve your experience with us. You may randomly be selected to receive a survey via email, text or phone. The survey is 9 questions long and takes less than one minutes to complete. We would greatly appreciate your feedback. Thank you! Get Cost of Care Estimates - [phone] The health insurance marketplace has changed dramatically in the last few years. Our cost of care service will provide estimates over the phone for treatments or procedures billed through [facility]. To receive a cost estimate, simply call [phone] during regular business hours. If you have insurance coverage, you will need to verify your policy of coverage with your health plan by calling the number located on the back of your insurance card and talking to member services. documented in this encounter Progress Notes * Masha Sheppard PA-C - 10/05/2023 10:00 AM CDT Visit & Exam Date: 10/05/2023 S:Sendy Moses is a 78 y.o. old female with PMH significant for HFpEF (last EF 55- 60% ), CAD s/p CABG x3 in 2009 (LUNA LAD, SV OM, SV PLB), Hx of CRYSTAL x4 SVG-RPDB in 10/2022, HLD, pulmonary HTN, nephrolithiasis who presents to the urology clinic today for post op follow-up after left ureteroscopy performed by Jose Gee MD on 09/30/23. She was admitted 08/26-08/29/23 for severe sepsis secondary to E.Coli UTI, obstructing left ureteral stone s/p cystoscopy with left ureteral stent placement 08/27/23, discharged home on Keflex. She was readmitted briefly on 08/31 for lethargy and leg numbness/pain with incidental hypotension, improved after fluid bolus and IV ceftriaxone. Overnight stay was recommended but she was adamant to leave. She was scheduled for ureteroscopy on 09/23, but this was not performed due to neurosurgery research director did not have a phone number for the patient/son. She returned to [facility] 09/26/23 with severe flank pain and pyuria. During that admission she had ureteroscopy, laser lithotripsy, and ureteral stent placement. Patient is seen with professional phone rf microwave engineer. Family present for support but patient requested them be out of the room for procedure. Patient was quite hesitant to do procedure. Requested to be put to sleep. I did spend quite a bit of time with the patient discussing what the procedure entails, the risks and benefits of doing it in the OR and the time constraints on scheduling that. Ultimately, through the rf microwave engineer, patient voiced her consent to proceed. ROSY Mei was present to witness voiced consent. Denies fevers/chills/N/V/SOB/CP/changes in weight and appetite. The remainder of his past medical history, review of systems, social history, family history, medications, and allergies have been reviewed and are current and up-to-date and available in the chart. O: There were no vitals taken for this visit. Gen: Alert and Oriented to person place and time. No acute distress. Well nourished, well developed. CV: regular rate and rhythm Lungs: Breathing unlabored Abd: active bowel sounds. Soft, NT/ND. Back: No CVA tenderness to palpation, no obvious spinal abnormalities Ext: no lower extremity edema Stone analysis: Not available Cystoscopy with stent removal: Hamida Latham CMA was present for this procedure as a female operations support manager. After sterile prep of the external genitalia a 16F flexible cystoscope was advanced into the bladder under direct vision. The urethra was unremarkable. The bladder was carefully evaluated and found to be free of tumor or stone. No diverticula noted. The stent was identified eminating from theleft u.o. It was grasped and removed without difficulty. Upon inspection the stent was found to be intact. A: 1. Nephrolithiasis P: Patient was given a single dose of keflex in the clinic today for procedural prophylaxis. Routine stone prevention advice given to patient today. Patient should follow-up in 4 week(s) after RENE. Patient does have residual small non obstructing right stones that we will monitor. Masha Sheppard PA-C 10/05/2023, 10:23 AM documented in this encounter Plan of Treatment Scheduled Orders Name Type Priority Associated Diagnoses Orde r Schedule US Renal W Bladder Imaging New Routine Nephrolithiasis Expected: 11/04/2023 (Approximate), Expires: 11/03/2024 documented as of this encounter Visit Diagnoses Diagnosis Nephrolithiasis- Primary Calculus of kidney documented in this encounter Care Teams Catheterization Laboratory Technician Relationship Specialty Start Date End Date No Primary/Referring, y PCP - General 08/26/23 documented as of this encounter
--- OUTSIDE RECORDS SUMMARY | 2023-11-04 22:48 | XMS_ITS | Encounter Summary ---
Author Name Unknown Organization [facility] Address [address] [address] Care Team Providers Care Compliance Counsel Name Role Phone No Primary/Referring, Phy Primary Care Provider Unavailable Reason for Referral * Consult/Transfer Care (Routine) - New Request Specialty Diagnoses / Procedures Referred By Alfonso t Referred To Contact Diagnoses Urinary tract infection with hematuria, site unspecified Left ureteral stone Hydronephrosis of left kidney Complicated UTI (urinary tract infection) Simran Kunz APRN, CNP [address] [place] [phone] Referral ID Status Reason Start Date Expiration Date V isits Requested Visits Authorized [id number] New Request 09/30/2023 12/29/2023 1 1 Scheduling Instructions Your clinician has recommended an appointment with [facility] for your ongoing patient care. You can quickly make your appointment online at [facility]schedule. You can also call [phone] for help scheduling your appointment. We suggest you call your health insurance company about your coverage and benefits for this appointment. Question Answer What type of follow up? IP Discharge Appointment Urgency? Non-Urgent Comments Primary Care Provider: No Primary/Referring * (Routine) - Incomplete Specialty Diagnoses / Procedures Referred By Contac t Referred To Contact Procedures XR C-Arm 1-1.5 Hours Simran Kunz APRN, CNP [address] [place] [id number] Referral ID Status Reason Start Date Expiration Date V isits Requested Visits Authorized [id number] Incomplete 09/29/2023 12/28/2024 1 1 * Procedure/Equipment (Routine) - Incomplete Specialty Diagnoses / Procedures Referred By Contac t Referred To Contact Procedures CT Abd Pelvis W IV Cont Grey Espinosa PA-C [address] [place] [id number] Referral ID Status Reason Start Date Expiration Date V isits Requested Visits Authorized [id number] Incomplete 09/26/2023 12/25/2024 1 1 Reason for Visit * Reason Comments Abdominal Pain * Auth/Cert (Routine) Specialty Diagnoses / Procedures Referred By Contac t Referred To Contact Diagnoses Renal stones Left flank pain Urinary tract infection with hematuria, site unspecified Left flank pain Urinary tract infection with hematuria, site unspecified Renal stones Referral ID Status Reason Start Date Expiration Date Visits Re quested Visits Authorized [id number] 1 1 Encounter Details Date Type Department Care Team (Late st Contact Info) Description 09/26/2023 7:33 PM CDT - 09/30/2023 2:15 PM CDT Hospital Encounter [facility] [address] [place] [id number] Edilma Sandy MD [address] [place] [phone] Filemon Rachel MD [address] [place] [id number] Robert Martin MD [address] [place] [id number] Ramona Angel PA-C [address] [place] [id number] Gordon Lama APRN, RICARD[address] [place] [address] Simran Kunz, DAYTIME CAREGIVER, MATERIAL HAULER [address] [place] [address] Left ureteral stone (Primary Dx); Left flank pain; Urinary tract infection with hematuria, site unspecified; Renal stones; Pain; Hydronephrosis of left kidney; Complicated UTI (urinary tract infection); Hematuria syndrome; Hydronephrosis with renal and ureteral calculus obstruction Discharge Disposition: Home Social History Tobacco Use Types Packs/Day Years Used Date Smoking Tobacco: Never Assessed Humiliation, Afraid, Rape, and Kick questionnair e [...] place to sleep or slept in a group home (including now)? No 09/27/2023 Sex and Gender Information Value Date Recorded Sex Assigned at Not on file Gender Identity Not on file Sexual Orientation Not on file documented as of this encounter Last Filed Vital Signs Vital Sign Reading Time Taken Comments Blood Pressure 137/71 09/30/2023 9:00 AM CDT Pulse 59 09/30/2023 9:00 AM CDT Temperature 36.4 ??C (97.5 ??F) 09/30/2023 9:00 AM CD T Respiratory Rate 16 09/30/2023 9:00 AM CDT Oxygen Saturation 94% 09/30/2023 9:00 AM CDT Inhaled Oxygen Concentration - - Weight 59.7 kg (131 lb 11.2 oz) 024 12:56 AM CDT Height 129.5 cm (4' 3) 09/27/2023 12:5 6 AM CDT Body Mass Index 35.6 09/27/2023 12:56 AM CDT documented in this encounter Discharge Summaries * Simran Kunz, SHAYNE, MATERIAL HAULER - 09/30/2023 11:54 AM CDT [facility] Medicine Discharge Summary Patient ID: Pilar Messina [id number] 78 y.o. 1945 Admit date: 09/26/2023 Discharge date: 09/30/2023 Final Discharge Diagnoses: Primary problem: Hydronephrosis of left kidney Chronic heart failure with preserved ejection fraction (HRC) Dyslipidemia (HRC) Coronary artery disease (HRC) Left ureteral stone Essential hypertension (HRC) Flank pain Pyuria * No resolved hospital problems. * Brief HPI Summary: 78 y.o. female with PMH of hypertension, CAD, obstructing left ureteral stone with hydronephrosis s/p ureteral stent on 08/27/2023 presents with left side abdominal/flank pain. 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 Reports pain is similar to prior ureteral colic, not resolved completely since her discharge. She was supposed to follow with urology 2-4 weeks after stent was placed but this has not happened yet. She reports her pain was worse over the last 1 week so they went to outside hospital [facility] and she was prescribed oral antibiotics and referred to [facility]. Reports associated dysuria but denies any fever or chills. Vitals with BP 140/71, satting 96% on room air, afebrile, heart rate 66. Labs notable for WBC 5.6, hemoglobin 10.4, serum creatinine 0.7 which is at baseline. UA suggestiveof UTI. CT with stent in-situ and mild left hydronephrosis with small nonobstructive stones in bothkidneys. She was started on IV ceftriaxone, urology was consulted by ED and admitted for further management. Please see the admission history and physical for full details. Hospital Course, by problem: 78 y.o. year-old female with history of hypertension, CAD, obstructing left ureteral stone with hydronephrosis s/p ureteral stent on 08/27/2023 who was admitted on 09/26/2023 with Flank Pain. L Flank Pain Recent Obstructing stone causing L Hydronephrosis s/p stenting Pyuria s/p thulium laser cystoscopic removal ureteral stone with left ureteral stent exchange, left retrograde pyelogram, stone basket extraction 09/28 UTI is related to/due to stent Presented with ongoing flank pain on L side. Recently hospitalized 3 weeks ago and found to have obstructing stone s/p stenting. At that time had nix sensitive EColi UTI and was treated with oral ABX. Pain has continued to persist and patient was lost to follow up, now back with pain. CT shows stable hydronephrosis and non-obstructing stones. UA appears dirty, started on ABX. Etiology is most likely UTI/Pyleonephritis vs renal Colic from stent. Urology consulted and recommended removal stent and definitive treatment on Wednesday. - Urology consult - Procedure on Thursday 09/28 at 1630 for ureteroscopy - Ceftriaxone 2 g Q24hrs transitioned to keflex 500 mg BID x 3 additional days for 7 day completion - UC, discuss with micro and reports no e coli or growing anything but risk outweighs and with symptoms on admission will finish course. - Oxybutynin for renal colic - PRN Tylenol and lidocaine patch - Stent removal schedule outpatient October 04 at 10 am. - Discussed with [facility] computer artist discharge instructions and with family Acute on Chronic Anemia 1 month ago noted Hem was 10-11, currently appears stable. Vit B12 low at 189, iron low at 29. Folate 11.7 - Iron 325 mg BID and add senna BID - Start Vitamin B12 oral 1000 mcg daily - CBC and Vitamin B12 in 4 weeks with PCP - Follow up with PCP outpatient Chronic Issues CAD s/p CABG 2009, s/p CRYSTAL x4, 10/2022: Per urology okay to resume Plavix, continue ASA and Crestor HTN: Continue Metoprolol HLD: Continue Statin L Leg Pain: Continue Gabapentin H/O HFpEF: has not been on lasix since last admission. Appears euvolemic DM?: Family states she has diabetes but not on medications. - Hgb A1C 6.6, risk for diabetes - Glucose been stable, CTM, blood sugar as needed - Switch to CC diet Primary care/TCU recommendations for follow up, including significant medication changes, medications being held, or recommended imaging or labs: - Pending Labs: None Discharge Medications: Done while pt still in hospital bed Medication List START taking these medications acetaminophen 325 MG tablet Commonly known as: TYLENOL Take 2 Tablets (650 mg) by mouth every 6 hours as needed. Indications: Pain cephalexin 500 MG capsule Commonly known as: KEFLEX Take 1 Capsule (500 mg) by mouth every 12 hours for 6 doses. Indications: Bladder Inflammation cyanocobalamin 1000 MCG tablet Commonly known as: VITAMIN B12 Take 1 Tablet (1,000 mcg) by mouth daily. Indications: Inadequate Vitamin B12 Start taking on: October 01, 2023 ferrous sulfate 325 (65 Fe) MG tablet Take 1 Tablet (325 mg) by mouth two times a day with meals. Indications: Iron Deficiency CONTINUE taking these medications clopidogrel 75 MG tablet Commonly known as: PLAVIX furosemide 20 MG tablet Commonly known as: LASIX Take 1 Tablet (20 mg) by mouth daily. HOLD- Do not restart until Ma is eating and drinking well gabapentin 300 MG capsule Commonly known as: NEURONTIN lisinopril 2.5 MG tablet Commonly known as: ZESTRIL Take 1 Tablet (2.5 mg) by mouth daily. HOLD- Do not restart until Ma is eating and drinking well metoprolol succinate 25 MG 24 hour release tablet Commonly known as: TOPROL XL nitroglycerin 0.4 MG sublingual tablet Commonly known as: NITROSTAT rosuvastatin 10 MG tablet Commonly known as: CRESTOR Where to Get Your Medications These medications were sent to [facility] [address] [place] [id number] Hours: Open 24x7 acetaminophen 325 MG tablet cephalexin 500 MG capsule cyanocobalamin 1000 MCG tablet ferrous sulfate 325 (65 Fe) MG tablet - Consults: urology - Procedures and Surgeries: s/p thulium laser cystoscopic removal ureteral stone with left ureteral stent exchange, left retrograde pyelogram, stone basket extraction. Discharge Exam: BP 137/71 (BP Cuff Size: Regular) Pulse (!) 59 Temp 97.5 ??F (36.4 ??C) (Oral) Resp 16 Ht 4' 3 (1.295 m) Wt 59.7 kg (131 lb 11.2 oz) SpO2 94% BMI 35.60 kg/m?? Gen: No acute distress HEENT: PERRL Resp: clear to auscultation bilaterally, no wheezing or crackles appreciated CV: regular rate & rhythm, no murmurs appreciated, radial pulses 2+ bilaterally Abd/GI: soft, nondistended, nontender, positive bowel sounds : no beaver, NO CVA tenderness MSK: warm, well perfused, dorsalis pedis pulses 2+, no edema Neuro: alert, interactive, no focal deficits Skin: no rashes, ulcerations on exposed skin surfaces Lymph: no cervical lymphadenopathy Psych: linear/coherent thought process, calm Disposition: home Code Status: Full Code Follow up: Referrals (From admission, onward) Establish Primary Care Routine Future Appointments Provider Department Center 10/05/2023 10:00 AM Masha Sheppard PA-C [id number] Significant Diagnostic Studies (imaging, labs, micro, etc), see EMR for full details: Lab Results Component Value Date/Time BUN 11 09/30/2023 07:24 AM SODIUM 140 09/30/2023 07:24 AM K 4.1 09/30/2023 07:24 AM CHLORIDE 106 09/30/2023 07:24 AM BICARB 22 09/30/2023 07:24 AM GLUCOSE 119 (H) 09/30/2023 07:24 AM CREATININE 0.71 09/30/2023 07:24 AM GFR >60 09/30/2023 07:24 AM CA 9.2 09/30/2023 07:24 AM ANIONGAP 12 09/30/2023 07:24 AM Last CBC/no differential result Lab Results Component Value Date/Time WBC 6.5 09/30/2023 07:24 AM RBC 4.33 09/30/2023 07:24 AM HGB 11.1 (L) 09/30/2023 07:24 AM HCT 36.2 09/30/2023 07:24 AM MCV 83.6 09/30/2023 07:24 AM MCH 25.6 (L) 09/30/2023 07:24 AM MCHC 30.7 (L) 09/30/2023 07:24 AM PLTS 200 09/30/2023 07:24 AM RDW 14.9 09/30/2023 07:24 AM Vitamin B12 189 Iron [address] ABD Pelvis IMPRESSION: 1. Double-J nephroureteral stent with proximal portion of the stent in the left renal pelvis. Mild left hydronephrosis. The distal portion of the stent is seen in the urinary bladder. Clinical correlation for stent patency. 2. Small nonobstructive stones seen in both kidneys. 3. Cholelithiasis. Gallbladder wall is mildly prominent. 4. Moderate lumbar spondylosis. Multilevel degenerative disc disease lumbar spine. Billing based on time: Total time for the visit was 35 minutes including, but not limited to, [id number]-[id number]-face time spent reviewing records, counseling, and coordination of care. Simran Kunz APRN, CNP [facility] Medicine documented in this encounter Discharge Instructions * Discharge Instructions* Enedina Martin RN - 09/30/2023 12:00 PM CDT Community Resources none Fall Prevention Recommendations Follow therapy recommendations around equipment use and activity progression Remove trip hazards to keep pathways clear in the home Remove throw rugs Keep frequently used items in easy to reach places Use non-slip mats in the bathtub and on shower floors Improve lighting in your home in all areas Wear shoes or non-slip footwear inside the house * Discharge Instr - Safety* Enedina Martin RN - 09/30/2023 12:01 PM CDT Call your clinic or seek medical help if you have any sudden change in your condition or if you have any of the following: chest pain difficulty breathing fever greater than 101.6 degrees F pain not relieved with usual methods shortness of breath documented in this encounter Medications at Time of Discharge Medication Sig Dispensed Refills Start Date End Date acetaminophen (TYLENOL) 325 MG tabletIndications:Pa in Take 2 Tablets (650 mg) by mouth every 6 hours as needed. Indications: Pain 100 Tablet 09/30/2023 clopidogrel (PLAVIX) 75 MG tablet Take 1 Tablet (75 mg) by mouth daily. 08/11/2023 cyanocobalamin (VITAMIN B12) 1000 MCG tabletIndications:Vi tamin B12 Deficiency Take 1 Tablet (1,000 mcg) by mouth daily. Indications: Inadequate Vitamin B12 30 Tablet 1 10/01/2023 ferrous sulfate 325 (65 Fe) MG tabletIndications:Ir on Deficiency Take 1 Tablet (325 mg) by mouth two times a day with meals. Indications: Iron Deficiency 60 Tablet 1 09/30/2023 furosemide (LASIX) 20 MG tablet Take 1 Tablet (20 mg) by mouth daily. HOLD- Do not restart until Ma is eating and drinking well 09/01/2023 gabapentin (NEURONTIN) 300 MG capsule Take 1 Capsule (300 mg) by mouth three times a day. 08/11/2023 lisinopril (ZESTRIL) 2.5 MG tablet Take 1 Tablet (2.5 mg) by mouth daily. HOLD- Do not restart until Ma is eating and drinking well 09/01/2023 metoprolol succinate (TOPROL XL) 25 MG 24 hour release tablet Take 0.5 Tablets (12.5 mg) by mouth daily. nitroglycerin (NITROSTAT) 0.[address] 1 Tablet (0.4 mg) under tongue every 5 minutes as needed for Chest Pain. 08/11/2023 rosuvastatin (CRESTOR) 10 MG tablet Take 1 Tablet (10 mg) by mouth daily. 08/11/2023 cephalexin (KEFLEX) 500 MG capsuleIndications:C ystitis Take 1 Capsule (500 mg) by mouth every 12 hours for 6 doses. Indications: Bladder Inflammation 6 Capsule 09/30/2023 10/03/2023 documented as of this encounter Progress Notes * Jenna Fermin PA-C - 09/30/2023 7:02 AM CDT Date of Service: 09/30/2023 Service: Urology Admit Date/time: Admit Date: 09/26/2023 7:33 PM Diagnosis: 1. Left flank pain 2. Urinary tract infection with hematuria, site unspecified 3. Renal stones Today's interview and exam is facilitated by the professional [facility] computer artist, via iPad Language Line, to assist in providing culturally sensitive care. S:Urology F/U. AF, VSS. Patient feeling well. Reports minimal left flank discomfort, no significantpain. No abdominal pain. Voiding volitionally. No urinary symptoms at this time. Denies fevers, chills, nausea, vomiting. ROS: Denies N/V/SOB/CP O: BP 108/64 (BP Cuff Size: Regular) Pulse 63 Temp 97.5 ??F (36.4 ??C) (Oral) Resp 16 Ht 4' 3(1.295 m) Wt 59.7 kg (131 lb 11.2 oz) SpO2 94% BMI 35.60 kg/m?? General Appearance: Alert and Oriented to person, place, and time. Pleasant mannerism and in no apparent distress. Answers questions appropriately. Back: No CVA tenderness to percussion. ABD: Soft, NT/ND. Extremities: No lower extremity edema. Laboratory: Intake/Output Summary (Last 24 hours) at 09/30/2023 0702 Last data filed at 09/29/2023 1929 Gross per 24 hour Intake 450 ml Output -- Net 450 ml Last Chem8 results: Lab Results Component Value Date/Time SODIUM 140 09/28/2023 07:33 AM K 4.0 09/28/2023 07:33 AM CHLORIDE 108 09/28/2023 07:33 AM BICARB 21 09/28/2023 07:33 AM BUN 10 09/28/2023 07:33 AM CREATININE 0.72 09/28/2023 07:33 AM GLUCOSE 97 09/28/2023 07:33 AM CA 8.8 09/28/2023 07:33 AM ANIONGAP 11 09/28/2023 07:33 AM Last CBC/no differential result Lab Results Component Value Date/Time WBC 4.2 09/27/2023 07:17 AM RBC 3.89 (L) 09/27/2023 07:17 AM HGB 9.9 (L) 09/27/2023 07:17 AM HCT 33.4 (L) 09/27/2023 07:17 AM MCV 85.9 09/27/2023 07:17 AM MCH 25.4 (L) 09/27/2023 07:17 AM MCHC 29.6 (L) 09/27/2023 07:17 AM PLTS 167 09/27/2023 07:17 AM RDW 15.6 (H) 09/27/2023 07:17 AM Urine culture 09/25: <10,000 CFU/mL Mixed Bacterial Growth A: Pilar Messina is a 78 y.o. female with PMH significant for HFpEF (last EF 55-60% ), CAD s/p CABG x3 in 2009 (LUNA LAD, SV OM, SV PLB), Hx of CRYSTAL x4 SVG-RPDB in 10/2022, HLD, pulmonary HTN, nephrolithiasis, with recent admission for sepsis, UTI, left ureteral stone s/p cysto/stent 08/26, admitted for left flank pain, pyuria. Now POD1 s/p thulium laser cystoscopic removal ureteral stone with left ureteral stent exchange, left retrograde pyelogram, stone basket extraction. Plan: Await AM labs. Antibiotic therapy per Hospital Medicine team. Reviewed possible ureteral stent symptoms with patient including urinary urgency, frequency, dysuria, hematuria, bladder spasms, flank pain. Outpatient urology follow up for ureteral stent removal, stone analysis review as scheduled 10/05/2023. Okay for discharge from Urology standpoint. Urology will sign off, please call if questions or concerns arise. Jenna Fermin PA-C 09/30/2023, 7:02 AM * Simran Kunz APRN, CNP - 09/29/2023 12:19 PM CDT Images from the original note were not included. PROGRESS NOTE Patient's name: Pilar Messina Attending: Gordon Lama APRN, CNP Date of Admission: 09/26/2023 Date of Service: 09/29/2023 Summary Statement: 78 y.o. year-old female with history of hypertension, CAD, obstructing left ureteral stone with hydronephrosis s/p ureteral stent on 08/27/2023 who was admitted on 09/26/2023 with Flank Pain. Goals for Today: NPO for ureteroscopy at 1630 today Continue IV ABX Follow UC and await for sensitives Subjective: Chart reviewed. D/w with primary nurse. No overnight events Denies L flank area to palpation. Denies any urinary symptoms, no N/V, ABD pain. Ipad with interpretation. at bedside. NPO for surgery, discuss plan of care Objective/Physical Exam: Most Recent Vital Signs: Min and Max Vital Signs (24 hours): Temp: 98.2 ??F (36.8 ??C) BP: 111/65 Pulse: (!) 59 Resp: 18 SpO2: 95 % Temp Min: 97.9 ??F (36.6 ??C) Max: 98.2 ??F (36.8 ??C) BP Min: 107/60 Max: 119/75 Pulse Min: 54 Max: 68 Resp Min: 16 Max: 18 SpO2 Min: 94 % Max: 95 % Gen: No acute distress HEENT: PERRL Resp: clear to auscultation bilaterally, no wheezing or crackles appreciated CV: regular rate & rhythm, no murmurs appreciated, radial pulses 2+ bilaterally Abd/GI: soft, nondistended, nontender, positive bowel sounds : no beaver, NO CVA tenderness MSK: warm, well perfused, dorsalis pedis pulses 2+, no edema Neuro: alert, interactive, no focal deficits Skin: no rashes, ulcerations on exposed skin surfaces Lymph: no cervical lymphadenopathy Psych: linear/coherent thought process, calm Labs/Imaging: Reviewed, pertinent findings noted below/incorporated into assessment & plan Lab Results Component Value Date/Time BUN 10 09/28/2023 07:33 AM SODIUM 140 09/28/2023 07:33 AM K 4.0 09/28/2023 07:33 AM CHLORIDE 108 09/28/2023 07:33 AM BICARB 21 09/28/2023 07:33 AM GLUCOSE 97 09/28/2023 07:33 AM CREATININE 0.72 09/28/2023 07:33 AM GFR >60 09/28/2023 07:33 AM CA 8.8 09/28/2023 07:33 AM ANIONGAP 11 09/28/2023 07:33 AM Last CBC/no differential result Lab Results Component Value Date/Time WBC 4.2 09/27/2023 07:17 AM RBC 3.89 (L) 09/27/2023 07:17 AM HGB 9.9 (L) 09/27/2023 07:17 AM HCT 33.4 (L) 09/27/2023 07:17 AM MCV 85.9 09/27/2023 07:17 AM MCH 25.4 (L) 09/27/2023 07:17 AM MCHC 29.6 (L) 09/27/2023 07:17 AM PLTS 167 09/27/2023 07:17 AM RDW 15.6 (H) 09/27/2023 07:17 AM Vitamin B12 189 Iron [address] ABD Pelvis IMPRESSION: 1. Double-J nephroureteral stent with proximal portion of the stent in the left renal pelvis. Mild left hydronephrosis. The distal portion of the stent is seen in the urinary bladder. Clinical correlation for stent patency. 2. Small nonobstructive stones seen in both kidneys. 3. Cholelithiasis. Gallbladder wall is mildly prominent. 4. Moderate lumbar spondylosis. Multilevel degenerative disc disease lumbar spine. Assessment & Plan: 78 y.o. year-old female with history of hypertension, CAD, obstructing left ureteral stone with hydronephrosis s/p ureteral stent on 08/27/2023 who was admitted on 09/26/2023 with Flank Pain. L Flank Pain Recent Obstructing stone causing L Hydronephrosis s/p stenting Pyuria Presented with ongoing flank pain on L side. Recently hospitalized 3 weeks ago and found to have obstructing stone s/p stenting. At that time had nix sensitive EColi UTI and was treated with oral ABX. Pain has continued to persist and patient was lost to follow up, now back with pain. CT shows stable hydronephrosis and non-obstructing stones. UA appears dirty, started on ABX. Etiology is most likely UTI/Pyleonephritis vs renal Colic from stent. Urology consulted and recommended removal stent and definitive treatment on Wednesday. - Urology consult - Procedure on Thursday 09/28 at 1630 for ureteroscopy - Continue Ceftriaxone 2 g Q24hrs - Follow UC - Oxybutynin for renal colic - PRN Tylenol and lidocaine patch Acute on Chronic Anemia 1 month ago noted Hem was 10-11, currently appears stable. Vit B12 low at 189, iron low at 29. 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 Appears euvolemic DM?: Family states she has diabetes but not on medications. - Hgb A1C 6.6, risk for diabetes - Glucose been stable, CTM, blood sugar as needed - Switch to CC diet FEN: IV fluids, NPO for procedure Prophy: Encourage Ambulation, SCDs, hold Plavix for surgery Lines/Tubes/Tethers: PIV Therapies: NA Level of Care: General Family updated: update at bedside Dispo: TBD Code Status/Goals of Care: Full Simran Kunz APRN, CNP Hospitalist, [facility] * Antonina Potts PA-C - 09/29/2023 8:04 AM CDT Brief Urology Note Pt to OR this evening for ureteroscopy. NPO, IVF. Consent previously obtained. Approximate time of OR 1630, however this is subject to OR availability and could be delayed if emergent cases approach. Patient is on the OR add on list and pre op will call for patient approx one hour prior. Please call with any questions. Antonina Potts PA-C [facility] 09/29/23 8:05 AM * Millie Morales PA-C - 09/28/2023 2:55 PM CDT Date of Service: 09/28/2023 Service: Urology Admit Date/time: 09/26/2023 7:33 PM Diagnosis: 1. Left flank pain 2. Urinary tract infection with hematuria, site unspecified 3. Renal stones S: Urology F/U. AF, cecilia 50s. She is feeling a bit better today. Flank pain still present but improved with oxybutynin. Denies f/c/n/v. Voiding volitionally. Tolerating PO intake. Ambulates in room to restroom. Plavix held. ROS: Denies N/V/SOB/CP O: BP 120/69 Pulse (!) 54 Temp 98.5 ??F (36.9 ??C) (Oral) Resp 17 Ht 4' 3 (1.295 m) Wt 59.7kg (131 lb 11.2 oz) SpO2 96% BMI 35.60 kg/m?? General Appearance: Resting in bed. Pleasant mannerism and in no apparent distress. Answers questions appropriately. Back: Mild left CVA tenderness to percussion ABD: Soft, ND, mild LLQ TTP. Laboratory: Intake/Output Summary (Last 24 hours) at 09/28/2023 1455 Last data filed at 09/28/2023 1000 Gross per 24 hour Intake 120 ml Output -- Net 120 ml Last Chem8 results: Lab Results Component Value Date/Time SODIUM 140 09/28/2023 07:33 AM K 4.0 09/28/2023 07:33 AM CHLORIDE 108 09/28/2023 07:33 AM BUN 10 09/28/2023 07:33 AM CREATININE 0.72 09/28/2023 07:33 AM GLUCOSE 97 09/28/2023 07:33 AM CA 8.8 09/28/2023 07:33 AM ANIONGAP 11 09/28/2023 07:33 AM Last CBC/no differential result Lab Results Component Value Date/Time WBC 4.2 09/27/2023 07:17 AM RBC 3.89 (L) 09/27/2023 07:17 AM HGB 9.9 (L) 09/27/2023 07:17 AM HCT 33.4 (L) 09/27/2023 07:17 AM MCV 85.9 09/27/2023 07:17 AM MCH 25.4 (L) 09/27/2023 07:17 AM MCHC 29.6 (L) 09/27/2023 07:17 AM PLTS 167 09/27/2023 07:17 AM RDW 15.6 (H) 09/27/2023 07:17 AM A: Pilar Messina is a 78 y.o. old female with PMH significant for HFpEF (last EF 55- 60% ), CAD s/p CABG x3 in 2009 (LUNA LAD, SV OM, SV PLB), Hx of CRYSTAL x4 SVG-RPDB in 10/2022, HLD, pulmonary HTN, nephrolithiasis, with recent admission for sepsis, UTI, left ureteral stone s/p cysto/stent 08/26, admitted forleft flank pain, pyuria Plan: To OR tomorrow for left ureteroscopy if remains stable Continue to hold Plavix NPO AM Continue IV fluids Discussed risks of surgery including, but not limited to, bleeding, infection, ureteral perforation, or damage to adjacent structures. Patient and patient's son express understanding and wish to proceed. Surgical consent obtained and placed in chart. Millie Morales PA-C * Simran Kunz APRN, CNP - 09/28/2023 12:58 PM CDT Images from the original note were not included. PROGRESS NOTE Patient's name: Pilar Messina Attending: Gordon Lama APRN, CNP Date of Admission: 09/26/2023 Date of Service: 09/28/2023 Summary Statement: 78 y.o. year-old female with history of hypertension, CAD, obstructing left ureteral stone with hydronephrosis s/p ureteral stent on 08/27/2023 who was admitted on 09/26/2023 with Flank Pain. Goals for Today: NPO after MN for ureteroscopy tomorrow with urology Continue IV ABX Monitor UC Start iron and Vit B12 oral supplements Subjective: Chart reviewed. D/w with primary nurse. No overnight events Still has mild tenderness on L flank area to palpation. Denies any urinary symptoms, no N/V, ABD pain. Ipad with interpretation. No family at bedside. Objective/Physical Exam: Most Recent Vital Signs: Min and Max Vital Signs (24 hours): Temp: 98.5 ??F (36.9 ??C) BP: 120/69 Pulse: (!) 54 Resp: 17 SpO2: 96 % Temp Min: 97.7 ??F (36.5 ??C) Max: 98.5 ??F (36.9 ??C) BP Min: 115/56 Max: 122/55 Pulse Min: 54 Max: 65 Resp Min: 17 Max: 18 SpO2 Min: 96 % Max: 99 % Gen: No acute distress HEENT: PERRL Resp: clear to auscultation bilaterally, no wheezing or crackles appreciated CV: regular rate & rhythm, no murmurs appreciated, radial pulses 2+ bilaterally Abd/GI: soft, nondistended, nontender, positive bowel sounds : no beaver, has some flank pain on palpation MSK: warm, well perfused, dorsalis pedis pulses 2+, no edema Neuro: alert, interactive, no focal deficits Skin: no rashes, ulcerations on exposed skin surfaces Lymph: no cervical lymphadenopathy Psych: linear/coherent thought process, calm Labs/Imaging: Reviewed, pertinent findings noted below/incorporated into assessment & plan Lab Results Component Value Date/Time BUN 10 09/28/2023 07:33 AM SODIUM 140 09/28/2023 07:33 AM K 4.0 09/28/2023 07:33 AM CHLORIDE 108 09/28/2023 07:33 AM BICARB 21 09/28/2023 07:33 AM GLUCOSE 97 09/28/2023 07:33 AM CREATININE 0.72 09/28/2023 07:33 AM GFR >60 09/28/2023 07:33 AM CA 8.8 09/28/2023 07:33 AM ANIONGAP 11 09/28/2023 07:33 AM Last CBC/no differential result Lab Results Component Value Date/Time WBC 4.2 09/27/2023 07:17 AM RBC 3.89 (L) 09/27/2023 07:17 AM HGB 9.9 (L) 09/27/2023 07:17 AM HCT 33.4 (L) 09/27/2023 07:17 AM MCV 85.9 09/27/2023 07:17 AM MCH 25.4 (L) 09/27/2023 07:17 AM MCHC 29.6 (L) 09/27/2023 07:17 AM PLTS 167 09/27/2023 07:17 AM RDW 15.6 (H) 09/27/2023 07:17 AM Vitamin B12 189 Iron [address] ABD Pelvis IMPRESSION: 1. Double-J nephroureteral stent with proximal portion of the stent in the left renal pelvis. Mild left hydronephrosis. The distal portion of the stent is seen in the urinary bladder. Clinical correlation for stent patency. 2. Small nonobstructive stones seen in both kidneys. 3. Cholelithiasis. Gallbladder wall is mildly prominent. 4. Moderate lumbar spondylosis. Multilevel degenerative disc disease lumbar spine. Assessment & Plan: 78 y.o. year-old female with history of hypertension, CAD, obstructing left ureteral stone with hydronephrosis s/p ureteral stent on 08/27/2023 who was admitted on 09/26/2023 with Flank Pain. L Flank Pain Recent Obstructing stone causing L Hydronephrosis s/p stenting Pyuria Presented with ongoing flank pain on L side. Recently hospitalized 3 weeks ago and found to have obstructing stone s/p stenting. At that time had nix sensitive EColi UTI and was treated with oral ABX. Pain has continued to persist and patient was lost to follow up, now back with pain. CT shows stable hydronephrosis and non-obstructing stones. UA appears dirty, started on ABX. Etiology is most likely UTI/Pyleonephritis vs renal Colic from stent. Urology consulted and recommended removal stent and definitive treatment on Wednesday. - Urology consult - Procedure on Wednesday for ureteroscopy - Continue Ceftriaxone 2 g Q24hrs - Follow UC - Oxybutynin for renal colic - PRN Tylenol and lidocaine patch Acute on Chronic Anemia 1 month ago noted Hem was 10-11, currently appears stable. Vit B12 low at 189, iron low at 29. - Folate pending - Iron 325 mg BID and add senna BID - Start Vitamin B12 oral 1000 mcg daily - CBC and Vitamin B12 in 4 weeks with PCP - Follow up with PCP outpatient Chronic Issues CAD s/p CABG 2009, s/p CRYSTAL x4, 10/2022: Hold [employer] Plavix for upcoming procedure, continue ASA and Crestor HTN: Continue Metoprolol HLD: Continue Statin L Leg Pain: Continue Gabapentin H/O HFpEF: has not been on lasix since last admission. Appears euvolemic DM?: Family states she has diabetes but not on medications. - Hgb A1C 6.6, risk for diabetes - Glucose been stable, CTM, blood sugar as needed - Switch to CC diet FEN: No IV fluids/ Lytes stable/ Regular Prophy: Encourage Ambulation Lines/Tubes/Tethers: PIV Therapies: NA Level of Care: General Family updated: Son, update yesterday Dispo: TBD Code Status/Goals of Care: Full Simran Kunz APRN, CNP Hospitalist, [facility] * Gordon Lama APRN, CNP - 09/27/2023 1:14 PM CDT Images from the original note were not included. PROGRESS NOTE Patient's name: Pilar Messina Attending: Gordon Lama APRN, CNP Date of Admission: 09/26/2023 Date of Service: 09/27/2023 Summary Statement: 78 y.o. year-old female with history of hypertension, CAD, obstructing left ureteral stone with hydronephrosis s/p ureteral stent on 08/27/2023 who was admitted on 09/26/2023 with Flank Pain. Goals for Today: Urology consult IV ABX Monitor UC Subjective: Chart reviewed. Feeling much today, pain is tolerable with medications and ABX. Still has tenderness on L flank area to palpation. Denies any urinary symptoms, no N/V, ABD pain. Family at bedside, assisted with interpretation. Objective/Physical Exam: Most Recent Vital Signs: Min and Max Vital Signs (24 hours): Temp: 98.2 ??F (36.8 ??C) BP: 107/52 Pulse: 61 Resp: 17 SpO2: 97 % Temp Min: 97.3 ??F (36.3 ??C) Max: 98.2 ??F (36.8 ??C) BP Min: 106/62 Max: 140/71 Pulse Min: 61 Max: 75 Resp Min: 16 Max: 17 SpO2 Min: 96 % Max: 97 % Gen: No acute distress HEENT: PERRL Resp: clear to auscultation bilaterally, no wheezing or crackles appreciated CV: regular rate & rhythm, no murmurs appreciated, radial pulses 2+ bilaterally Abd/GI: soft, nondistended, nontender, positive bowel sounds : no beaver, has some flank pain on palpation MSK: warm, well perfused, dorsalis pedis pulses 2+, no edema Neuro: alert, interactive, no focal deficits Skin: no rashes, ulcerations on exposed skin surfaces Lymph: no cervical lymphadenopathy Psych: linear/coherent thought process, calm Labs/Imaging: Reviewed, pertinent findings noted below/incorporated into assessment & plan Recent Labs 09/26/23 2148 09/27/23 0717 WBC 5.6 4.2 HGB 10.4* 9.9* PLTS 165 167 SODIUM 137 138 K 3.8 3.8 BUN 11 8 CREATININE 0.77 0.60 [address] ABD Pelvis IMPRESSION: 1. Double-J nephroureteral stent with proximal portion of the stent in the left renal pelvis. Mild left hydronephrosis. The distal portion of the stent is seen in the urinary bladder. Clinical correlation for stent patency. 2. Small nonobstructive stones seen in both kidneys. 3. Cholelithiasis. Gallbladder wall is mildly prominent. 4. Moderate lumbar spondylosis. Multilevel degenerative disc disease lumbar spine. Assessment & Plan: L Flank Pain Recent Obstructing stone causing L Hydronephrosis s/p stenting Pyuria Presented with ongoing flank pain on L side. Recently hospitalized 3 weeks ago and found to have obstructing stone s/p stenting. At that time had nix sensitive EColi UTI and was treated with oral ABX. Pain has continued to persist and patient was lost to follow up, now back with pain. CT shows stable hydronephrosis and non-obstructing stones. UA appears dirty, started on ABX. Etiology is most likely UTI/Pyleonephritis vs renal Colic from stent. Urology consulted and recommended removal stent and definitive treatment on Wednesday. - Urology consult - Procedure on Wednesday - Ceftriaxone - Follow UC - Oxybutynin for renal colic - PRN Tylenol and lidocaine patch Acute on Chronic Anemia 1 month ago noted Hem was 10-11, currently appears stable. - Trend CBC - B12, iron panel, Folate Chronic Issues CAD s/p CABG 2009, s/p CRYSTAL x4, 10/2022: Hold [employer] Plavix for upcoming procedure, continue ASA and Crestor HTN: Continue Metoprolol HLD: Statin L Leg Pain: Gabapentin H/O HFpEF: has not been on lasix since last admission. Appears euvolemic DM?: Family states she has diabetes but not on medications. Will check A1C FEN: No IV fluids/ Lytes stable/ Regular Prophy: Encourage Ambulation Lines/Tubes/Tethers: PIV Therapies: NA Level of Care: General Family updated: Son at bedside Dispo: TBD Code Status/Goals of Care: Full Gordon Lama APRN, DI Hospitalist, [facility] Pager: [phone] documented in this encounter Procedure Notes * Jose Gee MD - 09/30/2023 12:00 AM CDT NAME: PILAR MESSINA CSN: [id number] OPERATIVE REPORT DATE OF SURGERY: 09/29/2023 : 1945 SURGEON: JOSE GEE MD PREOPERATIVE DIAGNOSES: 1. Previous stenting for a left obstructing ureteral stone. 2. Recent admission for sepsis and urinary tract infection. POSTOPERATIVE DIAGNOSES: 1. Previous stenting for a left obstructing ureteral stone. 2. Recent admission for sepsis and urinary tract infection. OPERATION PERFORMED: Left ureteroscopy with laser lithotripsy and stent replacement. SENIOR BENEFITS SPECIALIST: None. ANESTHESIA: General endotracheal. ESTIMATED BLOOD LOSS: Minimal. DRAINS: Left ureteral stent. OPERATIVE INDICATION: Please see inpatient consult notes. Prior to surgery, the patient understood the risks and benefits of surgery, including the risk of bleeding, infection, need for re-operation,and damage to adjacent structures. Despite these risks and considerations, the patient agreed to proceed. DESCRIPTION OF PROCEDURE: The patient was brought to the operating room in satisfactory condition. General anesthesia was provided by the Anesthesia Department. A time-out was performed to ensure proper patient, proper patient placement, and proper procedure. Once anesthesia was obtained, the patient was placed in the dorsal lithotomy position. Her external genitalia were prepped and draped in a standard surgical fashion. The case was begun by inserting a 22- Thai rigid cystoscope into the bladder under direct vision. Previously placed stent was grasped and brought out to the meatus. A wire was advanced and the rigid ureteroscopy was performed. The ureter was negative. I advanced a flexible ureteroscope and visualized each calyx. Though there had been upper and lower pole stones on the most recent CT scan, I only identified a lower pole stone. Initially, this was inaccessible with a laser, but it was basketed and mobilized from the upper pole calyx and then engaged with a 200 micron laser fiber. The stone fragmented quite well and all fragments appeared passable. Pullback view of the ureter was unremarkable. There was no evidence of residual ureteral stone or other abnormality. Aureteral stent was deployed with good coil seen proximally and distally. Overall, the patient tolerated the procedure well. There were no apparent complications. Postoperatively, she will be transferred to PACU and discharged home. She will follow up in around 1 week for stent removal. JOSE GEE MD SJL/AQS /[id number] documented in this encounter Consult Notes * Millie Morales PA-C - 09/27/2023 7:48 AM CDTAssociated Order(s): UROLOGY CONSULT Date of Service: 09/27/2023 Admit Date/time: 09/26/2023 7:33 PM Patient Service: General Medicine Consult Service: Urology Reason for Consult: Complicated UTI, Lt ureteral stent in situ Staff: Joseph Bernstein MD CC / HPI: Pilar Messina is a 78 y.o. old female, with PMH significant for HFpEF (last EF 55-60% ), CAD s/p CABG x3 in 2009 (LUNA LAD, SV OM, SV PLB), Hx of CRYSTAL x4 SVG-RPDB in 10/2022, HLD, pulmonary HTN, nephrolithiasis, seen in consult for urologic evaluation and treatment of complicated UTI, Lt ureteral stent in situ. She was recently admitted 08/26-08/29/23 for severe sepsis secondary to [...] but this was not performed due to patrol deputy sheriff did not have a phone number for the patient/son. She presented to [facility] yesterday for evaluation of left abdominal/flank pain since her last discharge. Her pain had worsened last week and she was evaluated at [facility] and prescribed antibioticsand referred to [facility], but transfer request was never completed. Upon arrival: AF, VSS. Hgb 10.4,Cr 0.77, UA with lg blood, lg LE, >180 RBC, 116 WBC, UC in process. CT scan demonstrated appropriate position left ureteral stent, mild hydronephrosis. She was started on IV ceftriaxone and IV fluids. Her son is present in room and provides interpretation. Spouse also present in room. Son reports his mother has had difficulty with eating and drinking due to her left flank pain. Son reports they had not received a phone call to schedule the ureteroscopy and ask if we can remove her stent today given all of her discomfort. She is feeling better than yesterday. Her left flank radiates to her leftquadrant and into her thigh. She slept well. No dysuria. She is urinary frequency with occasional small volume voids. Current Facility-Administered Medications Medication Dose Route Frequency Provider Last Rate Last Admin acetaminophen (TYLENOL) tablet 650 mg 650 mg Oral Q6H PRN Filemon Rachel MD aspirin chewable tablet 81 mg 81 mg Oral 1999 Filemon Rachel MD benzocaine-menthol (Chloraseptic) lozenge 1 Lozenge 1 Lozenge Oral Q2H PRN Filemon Rachel MD calcium carbonate (TUMS) chewable tablet 1,000 mg 1,000 mg Oral Q4H PRN Filemon Rachel MD [START ON 09/28/2023] cefTRIAXone (ROCEPHIN) 2 g in sodium chloride 0.9 % 100 mL IVPB 2 g [id number] (NS) Filemon Rachel MD [Held by provider in Manage Orders] clopidogrel (PLAVIX) tablet 75 mg 75 mg Oral Daily Filemon Rachel MD gabapentin (NEURONTIN) capsule 300 mg 300 mg Oral TID Filemon Rachel MD HYDROmorphone (DILAUDID) injection 0.2 mg 0.2 mg Intravenous Q4H PRN Filemon Rachel MD lactated ringers infusion Intravenous Continuous Filemon Rachel MD 75 mL/hr at 09/27/23 0139 New Bag at 09/27/23 0139 melatonin tablet 6 mg 6 mg Oral At bedtime PRN Filemon Rachel MD metoprolol succinate (TOPROL XL) extended release tablet 12.5 mg 12.5 mg Oral Daily Radames Rachel MD rosuvastatin (CRESTOR) tablet 10 mg 10 mg Oral Daily Filemon Rachel MD No Known Allergies ROS: 10 pts reviewed with patient, see HPI for pertinent positives and negatives. No past medical history on file.: No past surgical history on file.: Social History Socioeconomic History Marital status: Spouse name: Not on file Number of children: Not on file Years of education: Not on file Highest education level: Not on file Occupational History Not on file Tobacco Use Smoking status: Not on file Smokeless tobacco: Not on file Vaping Use Vaping status: Never Used Substance and Sexual Activity Alcohol use: Not on file Drug use: Never Sexual activity: Not on file Other Topics Concern Not on file Social History Narrative Not on file Social Determinants of Health Financial Resource Strain: High Risk (06/28/2021) Received from [facility] Financial Resource Strain Difficulty of Paying Living Expenses: Not on file Difficulty of Paying Living Expenses: Not on file Food Insecurity: Not on file Transportation Needs: Not on file Intimate Partner Violence: Unknown (09/27/2023) Humiliation, Afraid, Rape, and Kick questionnaire Fear of Current or Ex-Partner: Not on file Emotionally Abused: Not on file Physically Abused: No Sexually Abused: No Housing Stability: Low Risk (09/27/2023) Housing Stability Vital Sign Unable to Pay for Housing in the Last Year: No Number of Places Lived in the Last Year: 1 Unstable Housing in the Last Year: No No family history on file.: Physical Exam: BP 106/62 Pulse 62 Temp 98.2 ??F (36.8 ??C) (Oral) Resp 17 Ht 4' 3 (1.295 m) Wt 59.7 kg (131 lb 11.2 oz) SpO2 97% BMI 35.60 kg/m?? Constitutional: Vitals reviewed above. Pleasant mannerism and in no apparent distress. Skin: Warm and dry. No active rashes, lesions, infections noted. Respiratory: Easily breathing on room air. No obvious wheezes. CV: Heart rate RRR. No JVD noted. GI: Soft, not distended, mild LLQ tenderness to palpation. No obvious abdominal masses, pulsations,nor HSM. No guarding or rebound. Musculoskeletal: No obvious spinal deformities. Moves all extremities. Neuro: Cranial nerves II-XII grossly intact. No neurologic defects noted. Psych: Normal affect. Alert and oriented to person, place, and time. Answers questions appropriately. Lymph: No inguinal lymphadenopathy present bilaterally. : -- Moderate left CVA tenderness noted with percussion. -- Vaginal exam: deferred -- Rectal exam: deferred Labs: Hemoglobin Date Value Ref Range Status 09/27/2023 9.9 (L) 12.0 - 15.5 g/dL Final 09/26/2023 10.4 (L) 12.0 - 15.5 g/dL Final 09/01/2023 11.9 (L) 12.0 - 15.5 g/dL Final WBC Date Value Ref Range Status 09/27/2023 4.2 3.5 - 10.5 x10(9)/L Final 09/26/2023 5.6 3.5 - 10.5 x10(9)/L Final 09/01/2023 8.3 3.5 - 10.5 x10(9)/L Final Platelets Date Value Ref Range Status 09/27/2023 167 150 - 450 x10(9)/L Final 09/26/2023 165 150 - 450 x10(9)/L Final 09/01/2023 179 150 - 450 x10(9)/L Final BUN Date Value Ref Range Status 09/27/2023 8 7 - 26 mg/dL Final Sodium Date Value Ref Range Status 09/27/2023 138 136 - 145 mmol/L Final Potassium Date Value Ref Range Status 09/27/2023 3.8 3.5 - 5.1 mmol/L Final Chloride Date Value Ref Range Status 09/27/2023 110 (H) 98 - 109 mmol/L Final CO2 Date Value Ref Range Status 09/27/2023 21 20 - 29 mmol/L Final Glucose Date Value Ref Range Status 09/27/2023 96 70 - 100 mg/dL Final Comment: The given reference range is for the fasting state. Non-fasting reference range for glucose is 70 -180 mg/dL. Creatinine Date Value Ref Range Status 09/27/2023 0.60 0.55 - 1.02 mg/dL Final GFR, Estimated Date Value Ref Range Status 09/27/2023 >60 >60 mL/min/1.73m2 Final Calcium Date Value Ref Range Status 09/27/2023 8.3 (L) 8.4 - 10.4 mg/dL Final Anion Gap Date Value Ref Range Status 09/27/2023 7 7 - 16 mmol/L Final Imaging: CT Abd Pelvis W IV Cont EXAM: CT ABD PELVIS W IV CONT LOCATION: [facility] DATE: 09/26/2023 INDICATION: Left-sided abdominal pain, with history of stent placement. COMPARISON: None. TECHNIQUE: Helical enhanced thin-section CT scan of the abdomen and pelvis was performed following injection of IV contrast. Multiplanar reformats were obtained. Dose reduction techniques were used. CONTRAST: IOHEXOL 350 MG/ML IV SOLN 100 mL FINDINGS: LOWER CHEST: Dependent atelectasis in the posterior lung bases. Coronary artery calcifications. HEPATOBILIARY: Question mild fatty infiltration the liver. Normal contour with no significant mass.No bile duct dilatation. Calcified gallstones. Gallbladder wall is mildly prominent. Clinical correlation for any associated symptomatology. PANCREAS: Mild to moderate generalized atrophy. No significant mass, duct dilatation, or inflammatory change. SPLEEN: Normal. ADRENAL GLANDS: Normal. KIDNEYS/BLADDER: [Double-J nephroureteral stent with proximal portion of the stent in the left renal pelvis. There is mild left hydronephrosis. The distal portion of the stent is seen in the urinary bladder. 2. Small nonobstructive stones are seen in the left kidney collecting system. 3 mm nonobstructive stone right kidney collecting system. Bilateral renal cysts. No follow-up needed. No stones are seen along the courses of the ureters. Urinary bladder unremarkable. BOWEL: Nonobstructive nonspecific bowel gas pattern. Appendix appears within normal limits. LYMPH NODES: No lymphadenopathy. VASCULATURE: No abdominal aortic aneurysm. Moderate vascular calcifications abdominal aorta and common iliac arteries. PELVIC ORGANS: No pelvic masses. No pelvic free fluid MUSCULOSKELETAL: Moderate lumbar spondylosis. Multilevel degenerative disc disease lumbar spine. Noventral hernia. No inguinal hernias. IMPRESSION: 1. Double-J nephroureteral stent with proximal portion of the stent in the left renal pelvis. Mild left hydronephrosis. The distal portion of the stent is seen in the urinary bladder. Clinical correlation for stent patency. 2. Small nonobstructive stones seen in both kidneys. 3. Cholelithiasis. Gallbladder wall is mildly prominent. 4. Moderate lumbar spondylosis. Multilevel degenerative disc disease lumbar spine. Assessment: Pilar Messina is a 78 y.o. old female with PMH significant for HFpEF (last EF 55-60% ), CAD s/p CABG x3 in 2009 (LUNA LAD, SV OM, SV PLB), Hx of CRYSTAL x4 SVG-RPDB in 10/2022, HLD, pulmonary HTN, nephrolithiasis, with recent admission for sepsis, UTI, left ureteral stone s/p cysto/stent 08/26, admitted for left flank pain, pyuria Plan: Recommend oxybutynin for stent irritation. Recommend 48 hours of IV antibiotics, awaiting cultures.Discussed with Jose Gee MD, who agrees to proceed with ureteroscopy on Wednesday afternoon after his clinic. Returned to room to inform patient/family, who express understanding and wishesto proceed. Hold Plavix now until surgery. She will likely d/c home if she meets criteria.Medicine team primary, greatly appreciate cares. Initial portion of today's interview and exam is facilitated by the professional [facility] computer artist,to assist in providing culturally sensitive care. The remaining interpretation provided by family. Millie Morales PA-C 09/27/2023, 7:48 AM documented in this encounter OR Notes * H&P - Filemon Rachel MD - 09/26/2023 11:58 PM CDT Images from the original note were not included. [facility] Medicine History & Physical Patient name: Pilar Messina : 1945 Date of Admission: 09/26/2023 7:33 PM Date of Service: 09/27/2023 Attending/Staff: Filemon Rachel MD Information Security Used: Her son interpreting by the bedsiderenita professional computer artist. Chief Complaint Abdminla pain History of Present Illness 78 y.o. female with PMH of hypertension, CAD, obstructing left ureteral stone with hydronephrosis s/p ureteral stent on 08/27/2023 presents with left side abdominal/flank pain. Her son by the bedsideinterpretingrenita professional computer artist. Reports pain is similar to prior ureteral colic, not resolved completely since her discharge. She was supposed to follow with urology 2-4 weeks after stent was placed but this has not happened yet. She reports her pain was worse over the last 1 week so they went to outside hospital at [facility] and she was prescribed oral antibiotics and referred to [facility]. Reports associated dysuria but denies any fever or chills. Vitals with BP 140/71, satting 96% on room air, afebrile, heart rate 66. Labs notable for WBC 5.6, hemoglobin 10.4, serum creatinine 0.7 which is at baseline. UA suggestiveof UTI. CT with stent in-situ and mild left hydronephrosis with small nonobstructive stones in bothkidneys. She was started on IV ceftriaxone, urology was consulted by ED and admitted for further management. Review of Systems 10 point ROS performed, pertinent positive and negatives appear in HPI. Past Medical History Patient Active Problem List Diagnosis Cataract, nuclear sclerotic senile, bilateral Chronic heart failure with preserved ejection fraction (HRC) Dyslipidemia (HRC) S/P CABG x 3 Severe mitral regurgitation (HRC) Dermatochalasis of both upper eyelids Coronary artery disease (HRC) Left ureteral stone Hydronephrosis Complicated UTI (urinary tract infection) Essential hypertension (HRC) Hypotension Myalgias Past Surgical History No past surgical history on file. Family History No family history on file. Social History Social History Socioeconomic History Marital status: Spouse name: Not on file Number of children: Not on file Years of education: Not on file Highest education level: Not on file Occupational History Not on file Tobacco Use Smoking status: Not on file Smokeless tobacco: Not on file Substance and Sexual Activity Alcohol use: Not on file Drug use: Not on file Sexual activity: Not on file Other Topics Concern Not on file Social History Narrative Not on file Social Determinants of Health Financial Resource Strain: High Risk (06/28/2021) Received from [facility] Financial Resource Strain Difficulty of Paying Living Expenses: Not on file Difficulty of Paying Living Expenses: Not on file Food Insecurity: Not on file Transportation Needs: Not on file Intimate Partner Violence: Not on file Housing Stability: Not on file Medications Prior to Admission Medications Prescriptions Last Dose Informant Patient Reported? Taking? clopidogrel (PLAVIX) 75 MG tablet Yes No Sig: Take 1 Tablet (75 mg) by mouth daily. furosemide (LASIX) 20 MG tablet No No Sig: Take 1 Tablet (20 mg) by mouth daily. HOLD- Do not restart until Ma is eating and drinking well gabapentin (NEURONTIN) 300 MG capsule Yes No Sig: Take 1 Capsule (300 mg) by mouth three times a day. lisinopril (ZESTRIL) 2.5 MG tablet No No Sig: Take 1 Tablet (2.5 mg) by mouth daily. HOLD- Do not restart until Ma is eating and drinking well metoprolol succinate (TOPROL XL) 25 MG 24 hour release tablet Yes No Sig: Take 0.5 Tablets (12.5 mg) by mouth daily. nitroglycerin (NITROSTAT) 0.4 MG sublingual tablet Yes No Sig: Place 1 Tablet (0.4 mg) under tongue every 5 minutes as needed for Chest Pain. rosuvastatin (CRESTOR) 10 MG tablet Yes No Sig: Take 1 Tablet (10 mg) by mouth daily. Facility-Administered Medications: None Allergies Patient has no known allergies. Physical Exam Vitals: Patient Vitals for the past 8 hrs: BP Temp Temp src Pulse Resp SpO2 09/26/232044 123/62 -- -- 64 -- 96 % 09/26/232035 138/61 -- -- 65 16 96 % 09/26/23 1918 128/77 97.3 ??F (36.3 ??C) Oral 75 16 97 % Constitutional: Not in acute distress HEENT: PERRLA, EOMI, moist mucous membranes Resp: clear to auscultation bilaterally, no wheezing or crackles appreciated CV: regular rate & rhythm, no murmurs appreciated, radial pulses 2+ bilaterally Abd/GI: soft non tender : No CVA o r SP tenderness MSK: no edema Neuro: Alert & oriented Labs/Imaging/Other Labs: Recent Labs 09/26/232147 SODIUM 137 K 3.8 CHLORIDE 107 BUN 11 CREATININE 0.77 GLUCOSE 125* No results for input(s): PH, PHV, PHCAP, PCO2, XOX4QCH, PCO2V, BLG4BWV, PO2, PO2ART, PO2V, PO2CAP in the last 72 hours. Recent Labs 09/26/232147 ALKPHOS 124 BILIRUBINTOT 0.6 BILIRUBINDIR 0.2 ALT 11 AST 14 TPRO 6.5 ALB 2.8* Recent Labs 09/26/232147 WBC 5.6 HGB 10.4* HCT 34.1* Imaging: CT Abdomen pelvis IMPRESSION: 1. Double-J nephroureteral stent with proximal portion of the stent in the left renal pelvis. Mild left hydronephrosis. The distal portion of the stent is seen in the urinary bladder. Clinical correlation for stent patency. 2. Small nonobstructive stones seen in both kidneys. 3. Cholelithiasis. Gallbladder wall is mildly prominent. 4. Moderate lumbar spondylosis. Multilevel degenerative disc disease lumbar spine. Assessment/Plan 78 y.o. female with PMH of hypertension, CAD, obstructing left ureteral stone with hydronephrosis s/p ureteral stent on 08/27/2023 presents with left side abdominal/flank pain. # Complicated UTI # History of left ureteral stone s/p urethral stent placement 08/27/2023 # Left hydronephrosis CT as above, UA suggestive of UTI. Has been on outpatient oral antibiotics Started on IV ceftriaxone, follow cultures. Urology consulted. Keep NPO after midnight # Hypertension Continue [employer] WAFER metoprolol # CAD s/p CABG 2009, s/p CRYSTAL x4, 10/2022 Hold [employer] W[employer] Plavix, continue ASA and Crestor # Chronic LLE pain Continue [employer] WAFER gabapentin # History of HFpEF Not in exacerbation, continue holding Lasix( on hold since last discharge) FEN: NPO, IV LR at 75 mL per/hr PPx: SCDs Lines/Catheters: PIV Level of Care: General care Code Status/Goals of Care: Full code This note may contain text created using speech-recognition software and may contain unintended word substitutions. Filemon Rachel MD [facility] Medicine, [facility] Pager: [phone] documented in this encounter ED Notes * Jimena Delcid RN - 09/27/2023 12:40 AM CDT Patient transported to unit via transport aid * Grey Espinosa PA-C - 09/26/2023 8:07 PM CDT [facility] Emergency Medicine Visit Note Chief Complaint: Abdominal Pain HPI Pilar Messina is a 78 y.o. female that presents to the ED for evaluation of abdominal pain. Patient is here with her son Patricia who serves as [facility] [employer] computer artist. Patient had a ureteral stent placed in July. She was supposed to have 2 week follow up, but this never happened. Over the last week, patient has been having increased pain, pain with urination, and pain with eating. Patient was recently admitted to [facility] for fluids, and antibiotics. Patient denies any nausea, vomiting, chest pain, fevers, or constipation. Patient has been trying to use Ty lenol for pain, and was prescribed antibiotics, she has not sure what type. Of note, patient does endorsed shortness of breath in the context of pain. Triage Vitals [09/26/231917] Temp 97.3 ??F (36.3 ??C) Temp src Oral Pulse 75 Resp 16 BP 128/77 SpO2 97 % Physical Exam Constitutional: awake, uncomfortable, and in no acute distress Eyes: visual acuity and EOM grossly intact with normal pupils HENMT: normocephalic, atraumatic, with grossly normal facial features, and dry mucous membranes Neck: grossly normal active range of motion and no tracheal deviation Cardiovascular: regular rate, regular rhythm, peripheral pulses intact Pulmonary: normal non labored breathing and breath sounds clear to auscultation bilaterally Abdomen: soft and non-distended. Patient does have left-sided tenderness to palpation in the CVA region, and left lower quadrant. : deferred Musculoskeletal: normal back and extremities without, tenderness, or obvious deformity and no edema Neuro: A&Ox3 and normal speech, no focal deficits. Skin: No obvious rashes, diaphoresis, or lacerations Psych: Normal MDM: Patient is a 78-year-old female that presents for evaluation left flank pain. Vital signs stable within normal limits. History and physical exam as above. EMR reviewed. Patient has presented with complicated UTI, nephrolithiasis, and left ureteral stone with stent placement on 08/26/2023. Stent was placed by Dr. Price, on 08/27/2023. Patient was discharged, readmitted on 09/01/2023 with hypotension, and concern for sepsis. Patient was supposed to be seen in urology clinic prior to stent removal, but this appointment never happened. Patient did present to [facility], where a transfer request was initiated, but never completed on 09/24/2023. Today, patient's symptoms concerning for pyelonephritis. Can not rule out other abdominal pathology. We will plan to get labs, treat patient's pain with Dilaudid, start patient on fluids, and get CT scan. See continued workup below. Grey Espinosa PA-C ED Course as of 09/27/23 0021 Sun Sep 26, 20237 ATTENDING: I personally saw the patient, performed damian elements of the visit, and supervised patient care with the senior talent acquisition specialist. [KG] 2312 CT Abd Pelvis W IV Cont IMPRESSION: 1. Double-J nephroureteral stent with proximal portion of the stent in the left renal pelvis. Mild left hydronephrosis. The distal portion of the stent is seen in the urinary bladder. Clinical correlation for stent patency. 2. Small nonobstructive stones seen in both kidneys. 3. Cholelithiasis. Gallbladder wall is mildly prominent. 4. Moderate lumbar spondylosis. Multilevel degenerative disc disease lumbar spine. [TJ] 2321 UA Conditional UC: Clean Catch(!) UA concerning for infection, patient was started on ceftriaxone. [TJ] 2321 Liver Panel (Hepatic Function Panel)(!) LFTs within normal limits. [TJ] 2321 Basic Metabolic Panel(!) Normal basic metabolic panel, no BETTY. [TJ] 2321 Complete Blood Count no Diff(!) CBC without evidence of leukocytosis, reassuring for systemic infection. [TJ] 2349 Hospital medicine team paged for admission. [TJ] Mon Sep 27, 2023 0021 Patient is accepted for inpatient admission. [TJ] ED Course User Index [KG] Edilma Sandy MD [TJ] Grey Espinosa PA-C Clinical Impressions as of 09/27/23 0021 Left flank pain Urinary tract infection with hematuria, site unspecified Renal stones documented in this encounter Plan of Treatment Scheduled Referrals Name Type Priority Associated Diagnoses Orde r Schedule Establish Primary Care Referral Routine Urinary tract infection with hematuria, site unspecified Left ureteral stone Hydronephrosis of left kidney Complicated UTI (urinary tract infection) Ordered: 09/30/2023 documented as of this encounter Procedures Procedure Name Priority Date/Time Associated Diagnosis Comments BASIC METABOLIC PANEL Routine 09/30/2023 7:24 AM CDT COMPLETE BLOOD COUNT-NO DIFF Routine 09/30/2023 7:24 AM CDT GLUCOSE, WHOLE BLOOD POCT Routine 09/29/2023 7:39 PM CDT XR C-ARM 1-1.5 HOURS Routine 09/29/2023 7:28 PM CDT THULIUM LASER CYSTOSCOPIC REMOVAL URETERAL STONE WITH PLACEMENT URETERAL STENT 09/29/2023 6:21 PM CDT Left ureteral stone GLUCOSE, WHOLE BLOOD POCT Routine 09/29/2023 4:07 AM CDT IV INSERTION(LAB TO PERFORM) STAT 09/28/2023 9:41 AM CDT BASIC METABOLIC PANEL Routine 09/28/2023 7:33 AM CDT FOLATE ONLY (4HR FAST RECOMMENDED) Routine 09/27/2023 2:03 PM CDT CBC AND DIFFERENTIAL PANEL Routine 09/27/2023 7:17 AM CDT COMPLETE BLOOD COUNT-W/DIFF Routine 09/27/2023 7:17 AM CDT BASIC METABOLIC PANEL Routine 09/27/2023 7:17 AM CDT HGB A1C Add-On 09/27/2023 7:17 AM CDT VITAMIN B12 ONLY Add-On 09/27/2023 7:17 AM CDT IRON PROFILE (IRON,TIBC,%SAT.(CALC )) Add-On 09/27/2023 7:17 AM CDT GLUCOSE, WHOLE BLOOD POCT Routine 09/27/2023 4:[address] ABD PELVIS W IV CONT STAT 09/26/2023 10:40 PM CDT LIVER PANEL(HEPATIC FUNCTION PANEL) STAT 09/26/2023 9:48 PM CDT BASIC METABOLIC PANEL STAT 09/26/2023 9:48 PM CDT COMPLETE BLOOD COUNT-NO DIFF STAT 09/26/2023 9:48 PM CDT LIPASE STAT 09/26/2023 9:48 PM CDT URINE CULTURE STAT 09/26/2023 9:02 PM CDT UA CONDITIONAL UC STAT 09/26/2023 9:0 2 PM CDT documented in this encounter Results * (ABNORMAL) Complete Blood Count-No Diff (09/30/2023 7:24 AM CDT) WBC 6.5 3.5 - 10.5 x10(9)/L 09/30/2023 7:40 AM CDT [facility] RBC 4.33 3.90 - 5.03 x10(12)/L 09/30/2023 7:40 AM CDT [facility] Hemoglobin 11.1(L) 12.0 - 15.5 g/dL 09/30/2023 7:40 AM CDT [facility] HCT 36.2 34.9 - 44.5 % 09/30/2023 7:40 AM [facility] MCV 83.6 80.0 - 100.0 fL 09/30/2023 7:40 AM [facility] MCH 25.6(L) 27.6 - 33.3 pg 09/30/2023 7:40 AM [facility] MCHC 30.7(L) 31.5 - 35.2 g/dL 09/30/2023 7:40 AM [facility] RDW 14.9 11.9 - 15.5 % 09/30/2023 7:40 AM [facility] Platelets 200 150 - 450 x10(9)/L 09/30/2023 7:40 AM [facility] Automated NRBC 0 <=0 /100 WBC 09/30/2023 7:40 AM [facility] Blood Venipuncture / Unknown 09/30/2023 7:24 AM CDT 09/30/2023 7:33 AM CDT Simran Kunz APRN, MATERIAL HAULER LAB_1 Performing Organization Address City/State/[facility] [place] [address], [facility] * (ABNORMAL) Basic Metabolic Panel (09/30/2023 7:24 AM CDT) Sodium 140 136 - 145 mmol/L 09/30/2023 8:01 AM [facility] Potassium 4.1 3.5 - 5.1 mmol/L 09/30/2023 8:01 AM [facility] Chloride 106 98 - 109 mmol/L 09/30/2023 8:01 AM [facility] CO2 22 20 - 29 mmol/L 09/30/2023 8:01 AM [facility] Anion Gap 12 7 - 16 mmol/L 09/30/2023 8:01 AM [facility] Calcium 9.2 8.4 - 10.4 mg/dL 09/30/2023 8:01 AM [facility] BUN 11 7 - 26 mg/dL 09/30/2023 8:01 AM [facility] Creatinine 0.71 0.55 - 1.02 mg/dL 09/30/2023 8:01 AM [facility] Glucose 119(H) 70 - 100 mg/dL 09/30/2023 8:01 AM [facility] Comment:The given reference range is for the fasting state. Non-fasting reference range for glucose is 70 - 180 mg/dL. GFR, Estimated >60 >60 mL/min/1.7 3m2 09/30/2023 8:01 AM [facility] Blood Venipuncture / Unknown 09/30/2023 7:24 AM CDT 09/30/2023 7:33 AM CDT Simran Kunz APRN, CNP LAB_1 Performing Organization Address [facility]/ZIP Co de Phone Number [address] * Glucose, Whole Blood POCT (09/29/2023 7:39 PM CDT) Glucose, Whole Blood 109 70 - 180 mg/dL 09/29/2023 7:41 PM [facility] Performing Location LAB PACU 09/29/2023 7:41 PM [facility] Blood 09/29/2023 7:39 PM CDT 09/29/2023 7:41 PM CDT Simran Kunz APRN, CNP LAB_1 Performing Organization Address [facility]/ZIP Co de Phone Number [address] * XR C-Arm 1-1.5 Hours (09/29/2023 7:28 PM CDT) Anatomical Region Laterality Modality X-Ray Angiograph y Narrative 09/29/2023 7:29 PM CDT Fluoroscopy provided by a cytopathology technologist. Exact fluoroscopy time is documented in end of exam information in EPIC Simran Kunz APRN, CNP RAD GD * Glucose, Whole Blood POCT (09/29/2023 4:07 AM CDT) Glucose, Whole Blood 98 70 - 180 mg/dL 09/29/2023 4:10 AM [facility] Performing Location RCLAB C91 09/29/2023 4:10 AM [facility] Blood 09/29/2023 4:07 AM CDT 09/29/2023 4:10 AM CDT Simran Jeanne Kunz APRN, CNP LAB_1 Performing Organization Address [facility] Co de Phone Number [address] * IV Insertion, LST Perform (09/28/2023 9:41 AM CDT) IV INSERTION, LST PERFORM (LAB) Done 09/28/2023 12:00 PM [facility] Other Specimen Type IV Start / Unknown 09/28/2023 9:41 AM CDT 09/28/2023 10:02 AM CDT Simran Kunz APRN, CNP LAB_1 Performing Organization Address [facility] Co de Phone Number [address] * Basic Metabolic Panel (09/28/2023 7:33 AM CDT) Sodium 140 136 - 145 mmol/L 09/28/2023 8:28 AM [facility] Potassium 4.0 3.5 - 5.1 mmol/L 09/28/2023 8:28 AM [facility] Chloride 108 98 - 109 mmol/L 09/28/2023 8:28 AM [facility] CO2 21 20 - 29 mmol/L 09/28/2023 8:28 AM [facility] Anion Gap 11 7 - 16 mmol/L 09/28/2023 8:28 AM [facility] Calcium 8.8 8.4 - 10.4 mg/dL 09/28/2023 8:28 AM [facility] BUN 10 7 - 26 mg/dL 09/28/2023 8:28 AM [facility] Creatinine 0.72 0.55 - 1.02 mg/dL 09/28/2023 8:28 AM [facility] Glucose 97 70 - 100 mg/dL 09/28/2023 8:28 AM [facility] Comment:The given reference range is for the fasting state. Non-fasting reference range for glucose is 70 - 180 mg/dL. GFR, Estimated >60 >60 mL/min/1.7 3m2 09/28/2023 8:28 AM CDT [facility] Blood Venipuncture / Unknown 09/28/2023 7:33 AM CDT 09/28/2023 7:55 AM CDT Gordon Lama APRN, CNP LAB_[address] * Folate Only (4Hr Fast Recommended) (09/27/2023 2:03 PM CDT) Folate 11.7 >=7.0 ng/mL 09/29/2023 11:57 AM CDT [facility] Blood Venipuncture / Unknown 09/27/2023 2:03 PM CDT 09/27/2023 2:22 PM CDT Gordon Lama APRN, CNP LAB_1 Performing Organization Address [facility] Co de Phone Number [facility] [address] * (ABNORMAL) Hgb A1C (09/27/2023 7:17 AM CDT) Hemoglobin A1C 6.6(H) <=5.6 % 09/28/2023 10:59 AM CDT [facility] Estimated Average Glucose (Calc) 143 < 117 mg/dL 09/28/2023 10:59 AM T [facility] Comment:Estimated average gl ucose (eAG) converts A1c into glucose units (mg/dL) and estimates average glucose over the past approximately 3 months. The eAG reference interval (<117 mg/dL) corresponds to an A1c of <5.7%. Blood Venipuncture / Unknown 09/27/2023 7:17 AM CDT 09/27/2023 7:24 AM CDT [facility] - 09/28/2023 10:59 AM CDT For patients not previously diagnosed with diabetes: 5.7-6.4%: Increased risk for diabetes 6.5% and greater: Diagnostic for diabetes For patients diagnosed with diabetes: <8.0%: Goal of therapy for ages 18-75 Clinicians may recommend a higher or lower goal for specific individuals. Gordon Lama APRN, CNP LAB_1 Performing Organization Address [facility] de Phone Number [facility] [address] * (ABNORMAL) Vitamin B12 Only (09/27/2023 7:17 AM CDT) Vitamin B12 189(L) 213 - 816 pg/mL 09/28/2023 12:02 PM CDT [facility] Blood Venipuncture / Unknown 09/27/2023 7:17 AM CDT 09/27/2023 7:24 AM CDT [facility] - 09/28/2023 12:02 PM CDT Borderline low serum Vitamin B12 values may not be diagnositic of B12 deficiency (140 to 209 pg/mL). Consider serum methylmalonic acid and homocysteine levels for confirmation. Serum B12 far below normal indicates deficency (<140 pg/mL). Gordon Lama APRN, CNP LAB_1 Performing Organization Address [facility] de Phone Number [facility] [address] * (ABNORMAL) Iron Profile (Iron,TIBC,%Sat.(Calc)) (09/27/2023 7:17 AM CDT) Iron 29(L) 50 - 170 mcg/dL 09/27/2023 1:52 PM CDT [facility] Transferrin 247 180 - 382 mg/dL 09/27/2023 1:52 PM CDT [facility] TIBC, Calculated 309 240 - 450 mcg/dL 09/27/2023 1:52 PM CDT [facility] % Saturation, Calculated 9(L) 10 - 50 % 09/27/2023 1:52 PM [facility] TIBC Interpretation Low iron, normal TIBC, possible iron deficiency. 09/27/2023 1:52 PM [facility] Blood Venipuncture / Unknown 09/27/2023 7:17 AM CDT 09/27/2023 7:24 AM CDT Gordon Lama DAYTIME CAREGIVER, [employer] LAB_1 Performing Organization Address City/State/[facility] Co de Phone Number [phone] [place] [address] * (ABNORMAL) Complete Blood Count-W/Diff (09/27/2023 7:17 AM CDT) WBC 4.2 3.5 - 10.5 x10(9)/L 09/27/2023 7:34 AM [facility] RBC 3.89(L) 3.90 - 5.03 x10(12)/L 09/27/2023 7:34 AM [facility] Hemoglobin 9.9(L) 12.0 - 15.5 g/dL 09/27/2023 7:34 AM [facility] HCT 33.4(L) 34.9 - 44.5 % 09/27/2023 7:34 AM [facility] MCV 85.9 80.0 - 100.0 fL 09/27/2023 7:34 AM [facility] MCH 25.4(L) 27.6 - 33.3 pg 09/27/2023 7:34 AM [facility] MCHC 29.6(L) 31.5 - 35.2 g/dL 09/27/2023 7:34 AM [facility] RDW 15.6(H) 11.9 - 15.5 % 09/27/2023 7:34 AM [facility] Platelets 167 150 - 450 x10(9)/L 09/27/2023 7:34 AM [facility] Automated NRBC 0 <=0 /100 WBC 09/27/2023 7:34 AM [facility] Neutrophil Absolute 2.4 1.7 - 7.0 10(9)/L 09/27/2023 7:34 AM [facility] Lymphocyte Absolute 1.1 1.0 - 4.8 10(9)/L 09/27/2023 7:34 AM [facility] Monocyte Absolute 0.4 0.2 - 0.9 10(9)/L 09/27/2023 7:34 AM [facility] Eosinophil Absolute 0.2 0.0 - 0.5 10(9)/L 09/27/2023 7:34 AM [facility] Basophil Absolute 0.0 0.0 - 0.3 10(9)/L 09/27/2023 7:34 AM [facility] Immature Granulocyte % 0.2 0.0 - 0.5 % 09/27/2023 7:34 AM [facility] Blood Venipuncture / Unknown 09/27/2023 7:17 AM CDT 09/27/2023 7:24 AM CDT Filemon Rachel MD LAB_1 Performing Organization Address City/State/[facility] Co de Phone Number [address] * (ABNORMAL) Basic Metabolic Panel (09/27/2023 7:17 AM CDT) Sodium 138 136 - 145 mmol/L 09/27/2023 7:57 AM [facility] Potassium 3.8 3.5 - 5.1 mmol/L 09/27/2023 7:57 AM [facility] Chloride 110(H) 98 - 109 mmol/L 09/27/2023 7:57 AM [facility] CO2 21 20 - 29 mmol/L 09/27/2023 7:57 AM [facility] Anion Gap 7 7 - 16 mmol/L 09/27/2023 7:57 AM [facility] Calcium 8.3(L) 8.4 - 10.4 mg/dL 09/27/2023 7:57 AM [facility] BUN 8 7 - 26 mg/dL 09/27/2023 7:57 AM [facility] Creatinine 0.60 0.55 - 1.02 mg/dL 09/27/2023 7:57 AM [facility] Glucose 96 70 - 100 mg/dL 09/27/2023 7:57 AM [facility] Comment:The given reference range is for the fasting state. Non-fasting reference range for glucose is 70 - 180 mg/dL. GFR, Estimated >60 >60 mL/min/1.7 3m2 09/27/2023 7:57 AM CDT [facility] Blood Venipuncture / Unknown 09/27/2023 7:17 AM CDT 09/27/2023 7:24 AM CDT Filemon Rachel MD LAB_1 Performing Organization Address [facility]/ZIP Co de Phone Number [address] * Glucose, Whole Blood POCT (09/27/2023 4:27 AM CDT) Glucose, Whole Blood 111 70 - 180 mg/dL 09/27/2023 4:28 AM CDT [facility] POCT Comment 1 MD/RN Notified 09/27/2023 4:28 AM CDT [facility] Performing Location RCLAB C91 09/27/2023 4:28 AM CDT [facility] Blood 09/27/2023 4:27 AM CDT 09/27/2023 4:28 AM CDT Filemon Rachel MD LAB_1 Performing Organization Address [facility] de Phone Number [address] * CT Abd Pelvis W IV Cont (09/26/2023 10:40 PM CDT) Anatomical Region Laterality Modality Abdomen, Pelvis Computed Tomogra phy 09/26/2023 10:4 0 PM CDT Narrative 09/26/2023 10:55 PM CDT EXAM: CT ABD PELVIS W IV CONT LOCATION: [facility] DATE: 09/26/2023 INDICATION: Left-sided abdominal pain, with history of stent placement. COMPARISON: None. TECHNIQUE: Helical enhanced thin-section CT scan of the abdomen and pelvis was performed following injection of IV contrast. Multiplanar reformats were obtained. Dose reduction techniques were used. CONTRAST: IOHEXOL 350 MG/ML IV SOLN 100 mL FINDINGS: LOWER CHEST: Dependent atelectasis in the posterior lung bases. Coronary artery calcifications. HEPATOBILIARY: Question mild fatty infiltration the liver. Normal contour with no significant mass. No bile duct dilatation. Calcified gallstones. Gallbladder wall is mildly prominent. Clinical correlation for any associated symptomatology. PANCREAS: Mild to moderate generalized atrophy. No significant mass, duct dilatation, or inflammatory change. SPLEEN: Normal. ADRENAL GLANDS: Normal. KIDNEYS/BLADDER: [Double-J nephroureteral stent with proximal portion of the stent in the left renal pelvis. There is mild left hydronephrosis. The distal portion of the stent is seen in the urinary bladder. 2. Small nonobstructive stones are seen in the left kidney collecting system. 3 mm nonobstructive stone right kidney collecting system. Bilateral renal cysts. No follow-up needed. No stones are seen along the courses of the ureters. Urinary bladder unremarkable. BOWEL: Nonobstructive nonspecific bowel gas pattern. Appendix appears within normal limits. LYMPH NODES: No lymphadenopathy. VASCULATURE: No abdominal aortic aneurysm. Moderate vascular calcifications abdominal aorta and common iliac arteries. PELVIC ORGANS: No pelvic masses. No pelvic free fluid MUSCULOSKELETAL: Moderate lumbar spondylosis. Multilevel degenerative disc disease lumbar spine. No ventral hernia. No inguinal hernias. IMPRESSION: 1. ??Double-J nephroureteral stent with proximal portion of the stent in the left renal pelvis. Mild left hydronephrosis. The distal portion of the stent is seen in the urinary bladder. Clinical correlation for stent patency. 2. ??Small nonobstructive stones seen in both kidneys. 3. ??Cholelithiasis. Gallbladder wall is mildly prominent. 4. ??Moderate lumbar spondylosis. Multilevel degenerative disc disease lumbar spine. Procedure Note Filemon Vaughan MD - 09/26/2023 EXAM: CT ABD PELVIS W IV CONT LOCATION: [facility] DATE: 09/26/2023 INDICATION: Left-sided abdominal pain, with history of stent placement. COMPARISON: None. TECHNIQUE: Helical enhanced thin-section CT scan of the abdomen and pelviswas performed following injection of IV contrast. Multiplanar reformatswere obtained. Dose reduction techniques were used. CONTRAST: IOHEXOL 350 MG/ML IV SOLN 100 mL FINDINGS: LOWER CHEST: Dependent atelectasis in the posterior lung bases. Coronaryartery calcifications. HEPATOBILIARY: Question mild fatty infiltration the liver. Normal contourwith no significant mass. No bile duct dilatation. Calcified gallstones.Gallbladder wall is mildly prominent. Clinical correlation for anyassociated symptomatology. PANCREAS: Mild to moderate generalized atrophy. No significant mass, ductdilatation, or inflammatory change. SPLEEN: Normal. ADRENAL GLANDS: Normal. KIDNEYS/BLADDER: [Double-J nephroureteral stent with proximal portion ofthe stent in the left renal pelvis. There is mild left hydronephrosis. Thedistal portion of the stent is seen in the urinary bladder. 2. Small nonobstructive stones are seen in the left kidney collectingsystem. 3 mm nonobstructive stone right kidney collecting system.Bilateral renal cysts. No follow-up needed. No stones are seen along thecourses of the ureters. Urinary bladder unremarkable. BOWEL: Nonobstructive nonspecific bowel gas pattern. Appendix appearswithin normal limits. LYMPH NODES: No lymphadenopathy. VASCULATURE: No abdominal aortic aneurysm. Moderate vascularcalcifications abdominal aorta and common iliac arteries. PELVIC ORGANS: No pelvic masses. No pelvic free fluid MUSCULOSKELETAL: Moderate lumbar spondylosis. Multilevel degenerative discdisease lumbar spine. No ventral hernia. No inguinal hernias. IMPRESSION: 1. Double-J nephroureteral stent with proximal portion of the stent inthe left renal pelvis. Mild left hydronephrosis. The distal portion of thestent is seen in the urinary bladder. Clinical correlation for stentpatency. 2. Small nonobstructive stones seen in both kidneys. 3. Cholelithiasis. Gallbladder wall is mildly prominent. 4. Moderate lumbar spondylosis. Multilevel degenerative disc diseaselumbar spine. Grey Espinosa PA-C RAD CT * Lipase (09/26/2023 9:48 PM CDT) Lipase 11 8 - 78 U/L 09/26/2023 10:23 PM CDT [facility] Blood Venipuncture / Unknown 09/26/2023 9:48 PM CDT 09/26/2023 9:53 PM CDT Grey Espinosa PA-C LAB_1 Performing Organization Address City/State/[facility] [place] [address], [facility] * (ABNORMAL) Liver Panel (Hepatic Function Panel) (09/26/2023 9:48 PM CDT) Alkaline Phosphatase 124 40 - 150 U/L 09/26/2023 10:23 PM CDT [facility] Bilirubin, Total 0.6 0.2 - 1.2 mg/dL 09/26/2023 10:23 PM [facility] Bilirubin, Direct 0.2 0.0 - 0.5 mg/dL 09/26/2023 10:23 PM [facility] AST (SGOT) 14 10 - 40 U/L 09/26/2023 10:23 PM [facility] ALT (SGPT) 11 <=55 U/L 09/26/2023 10:23 PM [facility] Protein, Total 6.5 6.4 - 8.3 g/dL 09/26/2023 10:23 PM [facility] Albumin 2.8(L) 3.5 - 5.0 g/dL 09/26/2023 10:23 PM [facility] Blood Venipuncture / Unknown 09/26/2023 9:48 PM CDT 09/26/2023 9:53 PM CDT Grey Espinosa PA-C LAB_[address] [address], [facility] * (ABNORMAL) Basic Metabolic Panel (09/26/2023 9:48 PM CDT) Pathologist [facility] Sodium 137 136 - 145 mmol/L 09/26/2023 10:23 PM [facility] Potassium 3.8 3.5 - 5.1 mmol/L 09/26/2023 10:23 PM [facility] Chloride 107 98 - 109 mmol/L 09/26/2023 10:23 PM [facility] CO2 20 20 - 29 mmol/L 09/26/2023 10:23 PM [facility] Anion Gap 10 7 - 16 mmol/L 09/26/2023 10:23 PM [facility] Calcium 8.8 8.4 - 10.4 mg/dL 09/26/2023 10:23 PM [facility] BUN 11 7 - 26 mg/dL 09/26/2023 10:23 PM [facility] Creatinine 0.77 0.55 - 1.02 mg/dL 09/26/2023 10:23 PM [facility] Glucose 125(H) 70 - 100 mg/dL 09/26/2023 10:23 PM [facility] Comment:The given reference range is for the fasting state. Non-fasting reference range for glucose is 70 - 180 mg/dL. GFR, Estimated >60 >60 mL/min/1.7 3m2 09/26/2023 10:23 PM [facility] Blood Venipuncture / Unknown 09/26/2023 9:48 PM CDT 09/26/2023 9:53 PM CDT Grey Espinosa PA-C LAB_1 Performing Organization Address City/State/[facility] Co de Phone Number [address] * (ABNORMAL) Complete Blood Count no Diff (09/26/2023 9:48 PM CDT) WBC 5.6 3.5 - 10.5 x10(9)/L 09/26/2023 9:58 PM [facility] RBC 4.06 3.90 - 5.03 x10(12)/L 09/26/2023 9:58 PM [facility] Hemoglobin 10.4(L) 12.0 - 15.5 g/dL 09/26/2023 9:58 PM [facility] HCT 34.1(L) 34.9 - 44.5 % 09/26/2023 9:58 PM [facility] MCV 84.0 80.0 - 100.0 fL 09/26/2023 9:58 PM [facility] MCH 25.6(L) 27.6 - 33.3 pg 09/26/2023 9:58 PM [facility] MCHC 30.5(L) 31.5 - 35.2 g/dL 09/26/2023 9:58 PM [facility] RDW 15.6(H) 11.9 - 15.5 % 09/26/2023 9:58 PM [facility] Platelets 165 150 - 450 x10(9)/L 09/26/2023 9:58 PM CDT [facility] Automated NRBC 0 <=0 /100 WBC 09/26/2023 9:58 PM CDT [facility] Blood Venipuncture / Unknown 09/26/2023 9:48 PM CDT 09/26/2023 9:53 PM CDT Grey Angel Jesús ATKINS LAB_1 Performing Organization Address [facility] de Phone Number [address] * (ABNORMAL) Urine Culture (09/26/2023 9:02 PM CDT) Urine Culture Growth(A) 09/27/2023 5:20 PM [facility] Urine Culture <10,000 CFU/mL Mixed Bacterial Growth 09/27/2023 5:20 PM [facility] Comment: Mixed Bacterial Growth indicates the specimen is likely contaminated at collection with urogenital and/or fecal lou. The presence of organisms at <10,000 cfu/ml in culture, UTI unlikely. Urine URINE SPECIMEN COLLECTION, CLEAN CATCH / Unknown Non-blood Collection / Unknown 09/26/2023 9:02 PM CDT 09/26/2023 9:31 PM CDT Grey Angel Jesús ATKINS LAB_1 Performing Organization Address [facility] de Phone Number [address] * (ABNORMAL) UA Conditional UC: Clean Catch (09/26/2023 9:02 PM CDT) Urine Culture Comment Urinalysis results meet criteria for reflex, culture performed. 09/26/2023 9:39 PM CDT [facility] Urine Color [place] 09/26/2023 9:39 PM CDT [facility] Urine Clarity Turbid(A) Clear 09/26/2023 9:39 PM CDT [facility] Specific [place], Urine 1.020 <1.030 09/26/2023 9:39 PM [facility] PH Urine 6.0 5.0 - 8.0 09/26/2023 9:39 PM T [facility] Protein, Urine Qual (mg/dL) 100(A) Negative, 10 , 20 09/26/2023 9:39 PM [facility] Glucose Urine Qual (mg/dL) Normal (Negative) Normal (Negative), 30 , 50 09/26/2023 9:39 PM [facility] Ketones, Urine (mg/dL) Negative Negative, Trace 09/26/2023 9:39 PM [facility] Urobilinogen, Urine (EU/dL) Normal (Negative) Normal (Negative) 09/26/2023 9:39 PM [facility] Bilirubin Urine (mg/dL) Negative Negative 09/26/2023 9:39 PM [facility] Blood, Urine (mg/dL) OVER (>1.0, Large)(A) Negative, 0.03 (Trace) 09/26/2023 9:39 PM [facility] Nitrite Urine Negative Negative 09/26/2023 9:39 PM [facility] Leukocyte Esterase, Urine (Ant/uL) 500 (Large)(A) Negative, 25 (Trace) 09/26/2023 9:39 PM [facility] Red Blood Cells >180(H) 0 - 3 /HPF 09/26/2023 9:39 PM [facility] White Blood Cells 116(H) 0 - 5 /HPF 09/26/2023 9:39 PM [facility] Squamous Epithelial Cells Occasional None Seen, Occasional, Few /HPF 09/26/2023 9:39 PM [facility] Mucus Present(A) None Seen /HPF 09/26/2023 9:39 PM [facility] Urine Source Clean Catch 09/26/2023 9:39 PM [facility] Urine URINE SPECIMEN COLLECTION, CLEAN CATCH / Unknown Non-blood Collection / Unknown 09/26/2023 9:02 PM CDT 09/26/2023 9:07 PM [facility] - 09/26/2023 9:39 PM CD The qualitative interpretive guidance provided (e.g., small, moderate, large) is intended to aid in quantitative result interpretation. It is not itself an FDA-cleared test result. Grey Espinosa PA-C LAB_1 [facility] [address] [place] [address] documented in this encounter Visit Diagnoses Diagnosis Hydronephrosis of left kidney- Primary Hydronephrosis Left flank pain Abdominal pain, unspecified site Urinary tract infection with hematuria, site unspecified Renal stones Calculus of kidney Pain Generalized pain Left ureteral stone Hydronephrosis of left kidney Hydronephrosis Complicated UTI (urinary tract infection) Urinary tract infection, site not specified Hematuria syndrome Hematuria, unspecified Hydronephrosis with renal and ureteral calculus obstruction Hydronephrosis Flank pain Abdominal pain, unspecified site Pyuria Other nonspecific finding on examination of urine Chronic heart failure with preserved ejection fraction (HRC) Dyslipidemia (HRC) Other and unspecified hyperlipidemia Coronary artery disease (HRC) Coronary atherosclerosis of unspecified type of vessel, knik or graft Essential hypertension (HRC) Unspecified essential hypertension Left ureteral stone * Plan of Care - Enedina Martin RN - 09/30/2023 12:10 PM CDT [facility] Discharge Note - Nursing Admission Date/Time: 09/26/2023 7:33 PM Attending MD: Simran Kunz APRN, [employer] Patient discharged: to Home. Discharge Date: 09/30/2023 Discharge Time: 1415 Patient accompanied by: relative. Transported by: Wheelchair Valuables were taken home by patient: Yes Discharge instructions given and explained to patient: Yes Discharge Patient Education Plan completed, taught, and provided to patient/caregiver at discharge:Yes Discussed medication risks with patient Patient understands medications usage and side effects Patient understands diagnosis Action Plan for management of symptoms/side effects/complications requiring medical attention established and shared with patient/caregiver Was patient discharged on Warfarin? {(Do not delete line; Warfarin documentation is required) No Patients general condition on discharge: stable All medical devices (telemetry/IV/etc) unless otherwise ordered, have been removed and stored: Yes --- End of Report --- * Plan of Care - Enedina Martin RN - 09/30/2023 12:08 PM CDT Patient a&o to person, place, and situation. Denies pain. Appetite remains poor. Up stand by assist. Family at bedside. Up in chair. * Plan of Care - Renetta Castillo LSW - 09/30/2023 11:36 AM CDT [facility] Care Management Screening Insurance Coverage: Payor: [facility] / Plan: [facility] / Product Type: Medicaid / Primary Care Provider: No Primary/Referring Admission Info: Cognitive capacity prior to admission: oriented Independent with ADLs (Prior to Admission)? Yes Living Environment: Living Arrangements (select all that apply): Adult children Follow Up: Please consult CM/SW if needs arise Additional Comments: Chart reviewed and collaborated with interdisciplinary team. Patient arrived to due to left flank pain which was noted in have increased- patient brought to hospital by adult son who is able to interpret for patient. Patient is not medically ready for discharge anticipate urology procedure on Thursday 09/28. Anticipate return to home setting when medically ready- no SW needs identified at this time. SW to continue to follow while patient is on unit. Anticipate family to provide ride to home setting. 09/29- Anticipate patient's discharge to home today with family- no SW needs identified for discharge. SW did place return call to patient's [facility] MYCHAL Stern PH: [phone]. SW able to leave a message to Leena regarding patient's admission date and discharge of today. Please consult if additional needsdo arise. BIBIANA Peterson * Plan of Care - Natalia Solis RN - 09/30/2023 2:51 AM CDT Pt alert, awake and oriented x3. Disoriented to situation. Communicated via iPad computer artist. Reoriented as needed. Explained POC. Denies pain, SOB and N/V/D. IV LR infusing at 75 ml/hr. Up to the BRwith A1, GB and walker. * Plan of Care - Oliver Evans RN - 09/29/2023 10:56 PM CDT [facility] Plan of Care Note Pt is alert and oriented with some confusion to time noted. Pt is calm and cooperative with cares. Son present for communication and ipad computer artist used after family left. Pt reported pain and received PRN tylenol. PRN was effective. Denies N/V, SOB. IV LR infusing at 75 ml/hr. Pt went for surgery this shift and post-op vitals obtained. VS stable on RA. Call light and alarms in place for safety. --- End of Report ---[facility]. Practitioner Notified Note Name of Practitioner notified: Reji García Time of Practitioner notification: 10:57 PM Reason: 9110-1 M. Anila. Pt is still NPO after returning from surgery and wants to eat. Can we pleaseget a diet order? Thanks! Response: Diet orders placed * Plan of Care - Sherri Rivas RN - 09/29/2023 8:32 PM CDT I completed a full assessment and assessments as ordered and per policy on this patient during my work shift. Reassessments completed during my work shift are unchanged unless documented. * Plan of Care - Kelly Auguste RN - 09/29/2023 1:40 PM CDT [facility] computer artist used for assessment/cares. Pt A&Ox3, disoriented to time. Denies sob, cp, or n/v. Reports pain all over body. Scheduled tylenol & PRN oxybutynin given with little relief. Pt NPO for ureterscopy at 1630. Continuous LR infusing @ 75mL/hr. SBA w/gb &walker to BR. Voiding w/o difficulty. Pt reports having no BM for multiple weeks. Pt will need stool softeners after proc edure. Spouse is at bedside. Call light within reach. * Plan of Care - Rosi Sebastian RN - 09/29/2023 6:18 AM CDT [employer] utilized w/ encounters. Patient A/O x3. VSS on RA. Denies pain, SOB or N/V/D. NPO at midnight. Ongoing IV LR 75cc/hr. Voiding adequately, A1 w/ walker to toilet. Pre-op checklist done. CHG bath performed. Call light in place, advised to call for assistance. Bed alarm on. Frequent roundsdone. * Plan of Care - Estelle Walter RN - 09/28/2023 11:59 PM CDT Pt A&O x3, not oriented to time. Denies any pain. No SOB. SBA when ambulating to bathroom. Pt NPO after midnight for ureteroscopy procedure tomorrow. On continuous LR. Call light within reach, pt able to make needs known. Bed alarm on. Pt is Hmong speaking and requires computer artist. * Plan of Care - Brea Muir - 09/28/2023 2:21 PM CDT Patient is A&O x3, disoriented to time. Needs [facility] computer artist. Heart rate is cecilia in the 50's, otherwise VSS on room air. Held Metoprolol due to bradycardia per provider. An assist of one witha walker and gait belt to the bathroom. Patient states she is in pain all over because I am old. Unable to rate the pain, treated with PRN Tylenol. Patient complains of numbness/tingling in BLE which is baseline per pt. Patient stated she gets dizzy when standing. Denies SOB, chest pain, and N/V.Stated she hasn't had a bowel movement in 4-5 days, pt denied Senna. Educated pt on the importance of having bowel movements. Plan for surgery tomorrow. NPO at 0000. Able to make needs known, call light within reach, and bed alarm on for safety. Assumed cares from [id number] * Plan of Care - Renetta Castillo LSW - 09/28/2023 11:16 AM CDT [facility] Care Management Screening Insurance Coverage: Payor: [facility] / Plan: [facility] / Product Type: Medicaid / Primary Care Provider: No Primary/Referring Admission Info: Cognitive capacity prior to admission: oriented Independent with ADLs (Prior to Admission)? Yes Living Environment: Living Arrangements (select all that apply): Adult children Follow Up: Please consult CM/SW if needs arise Additional Comments: Chart reviewed and collaborated with interdisciplinary team. Patient arrived to due to left flank pain which was noted in have increased- patient brought to hospital by adult son who is able to interpret for patient. Patient is not medically ready for discharge anticipate urology procedure on Thursday 09/28. Anticipate return to home setting when medically ready- no SW needs identified at this time. SW to continue to follow while patient is on unit. Anticipate family to provide ride to home setting. BIBIANA Peterson * Plan of Care - Joyce Hernandez RN - 09/27/2023 8:28 PM CDT Patient is A&Ox3 - disoriented to time, Hmong speaking only - iPad computer artist used and family helping to interpret per patient preference, HR bradycardic at 56 - other VSS on RA, up via assist of 1 w/ walker and gait belt, voiding appropriately up to toilet, no BM this shift, appetite is good - fluids are adequate, denies N/V and SOB/CP, c/o pain to abdomen and bilateral legs - given PRN Tylenol @1700 and Oxybutynin @2000 w/ relief, currently has continuous LR running @75 mL/hr, bed is in low position, bed alarm is on, call light within reach, and frequent rounding performed throughout shift. * Plan of Care - Mira Haque RN - 09/27/2023 2:34 PM CDT [facility] Plan of Care Note Assumed care from 0700 to 1530. A&O x4, calm and cooperative. Hmong speaking, family requestingto interpret, son asking to call to interpret. On RA. Ax1 w/walker and GB. Denies pain, CP, SOB, N/V, and lightheadedness. Given PRN Oxybutynin for bladder discomfort. IVF LR infusing at 75 mL/hr. Appetite fair, regular diet. Call light within reach, able to make needs known. Resting in bed, spouseat bedside. Bed alarm on for safety. --- End of Report --- * Plan of Care - Lucía Keller RN - 09/27/2023 7:00 AM CDT Patient from ED, on to bed safely, ambulated with Aof 1 with walker and gaitbelt. Son at bedside with patient and helps with Hmong interpretation. Denies pain, sob, nausea, vomiting, skin intact. Sonsaid patients wants to rest and sleep for the night. Son left and instructed that if ever doctors will rounds, to wait for him to come in the morning and not talk to patient regarding plan of care ifhe is not around. Started IVF LR at75ml per hour. Up to toilet with Aof1. Able to sleep. No complaints. * Triage Assessment Note - Cristin Dee RN - 09/26/2023 7:17 PM CDT Chief complaint: abdominal pain Symptoms/background/relevant history (narrative): Patient had a stent placed for left kidney stone on 08/26/23. Has been unable to follow up. Left flank pain is increased, difficulty eating and drinking over the last 3 days. Accompanied by son. Son prefers to interpret. What is most important to you about your ER visit today? Get the pain checked out. 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 Acetaminophen may be given WITH other pain medications as adjunct pain relief. Do not give two acetaminophen containing medications within 4 hours of each other. Given 09/29/2023 4:14 PM CDT 650 mg Given 09/29/2023 8:57 AM CDT 650 mg Given 09/28/2023 8:57 AM CDT 650 mg aspirin chewable tablet 81 mg 81 mg, Oral, ASPIRIN - DAILY, First dose on 09/27/23 at 2000, Until Discontinued Given 09/29/2023 9:00 PM CDT 81 mg Given 09/28/2023 8:43 PM CDT 81 mg Given 09/27/2023 7:56 PM CDT 81 mg bisacodyl (DULCOLAX) rectal suppository 10 mg 10 mg, Rectal, DAILY PRN, Constipation, No stool in the last 3 days, Starting on Wed09/28/23 at 0245, Until Julianna 09/30/23 at 1615, Cumulative bowel medication orders. Administer based on medications available on AUG. If no stool in last day start Senna BID PRN no stool, if no stool in last 2 days add Miralax DAILY PRN no stool, if no stool in last 3 days add bisacodyl suppository DAILY PRN until patient stools. When patient stools, stop giving PRN meds and continue monitoring for bowel activity. When no stools X 1 day, begin regimen again until patient stools. Do not give if Absolute Neutrophil Count (ANC) is 1 k/cmm or less OR platelet count is 50 k/cmm or less. ceFAZolin (ANCEF) 2 g in sodium chloride 0.9 % 50 mL IVPB ADS 2 g, Intravenous, Administer over 30 Minutes, ONCE (NON-SCHEDULED), Starting on Wed09/29/23 at 1732, For 1 dose, For patient weight less than or equal to 119 kg PRE-OP, Pre-op cefTRIAXone (ROCEPHIN) 2 g in sodium chloride 0.9 % 100 mL IVPB 2 g, Intravenous, Administer over 30 Minutes, Q24H (NON-STND), First dose on Wed09/28/23 at 2200, Do NOT infuse in same line with Lactated Ringers (LR), TPN, or other calcium-containing IV solutions due to incompatibility. Started 09/29/2023 9:46 PM CDT 2 g Started 09/28/2023 10:29 PM CDT 2 g cefTRIAXone (ROCEPHIN) injection 2 g 2 g, Intravenous, ONCE, On Wed09/26/23 at 2215, For 1 dose, Dilute with 20 mL of normal saline and give slow IV push over 4-5 minutes , Indications: Intra-Abdominal Infection Given 09/26/2023 9:57 PM CDT 2 g cephalexin (KEFLEX) capsule 500 mg 500 mg, Oral, Q12H (NON-STND), First dose on Wed09/30/23 at 2000, For 3 days, Indications: Cystitis cyanocobalamin (VITAMIN B12) tablet 1,000 mcg 1,000 mcg, Oral, DAILY, First dose on Wed09/28/23 at 1415, Until Discontinued, Indications: Vitamin B12 Deficiency Given 09/30/2023 9:30 AM CDT 1,000 mc g Given 09/29/2023 8:50 AM CDT 1,000 mcg Given 09/28/2023 2:08 PM CDT 1,000 mcg dextrose (D50) injection 25 g 25 g, Intravenous, Q15MIN PRN, Hypoglycemia, Per Adult Hypoglycemia Treatment Protocol, Starting on Wed09/28/23 at 1340, Per Hypoglycemic episode: Give 25g IV push, recheck POCT glucose in 15 minutes, if result less than 70mg/dL, may repeat. After 2 doses notify Practitioner. May continue to treat while waiting for call back. fentaNYL (SUBLIMAZE) injection 25-50 mcg 25-50 mcg, Intravenous, [id number], Pain, Starting on Wed09/29/23 at 1925, Until Wed09/30/23 at 1615, 25 mcg IV q5min prn based on the patient's pain scale rating for mild to moderate pain (1 to 5). 50 mcg IV q5min prn based on the patient's pain scale rating for moderate to severe pain (6 to 10). Total PACU fentanyl dose not to exceed 200 mcg. Use fentanyl initially for a short acting agent for treatment of acute post operative pain. May use in conjuction with a longer acting agent for optimal pain control. Respiratory rate must be greater than 10 to administer medications., PACU (only) ferrous sulfate EC tablet 325 mg 325 mg, Oral, BID WITH MEALS, First dose on Wed09/28/23 at 1700, Until Discontinued, 325 mg = 5 grains Given 09/30/2023 9:30 AM CDT 325 mg Given 09/29/2023 5:56 PM CDT 325 mg Given 09/29/2023 8:50 AM CDT 325 mg gabapentin (NEURONTIN) capsule 300 mg 300 mg, Oral, TID, First dose on Wed09/27/23 at 0800, Until Discontinued Given 09/30/2023 2:04 PM CDT 300 mg Given 09/30/2023 9:30 AM CDT 300 mg Given 09/29/2023 9:00 PM CDT 300 mg glucagon rDNA (diagnostic) (GLUCAGEN) injection 1 mg 1 mg, Intramuscular, Q15MIN PRN, Hypoglycemia, Per Adult Hypoglycemia Treatment Protocol, Starting on Wed09/28/23 at 1340, Until Wed09/30/23 at 1615, Per Hypoglycemic episode: Give 1mg IM, turn patient on side to prevent aspiration if vomits. If appropriate, establish IV access STAT. Recheck POCT glucose in 15 minutes, if result less than 70mg/dL and still no IV access, may repeat 1mg IM x 1. Recheck POCT glucose in 15 minutes, if result is less than 70mg/dL notify Practitioner. glucose (GLUTOSE) 40 % oral gel 15 g of glucose 15 g of glucose, Oral, Q15MIN PRN, Hypoglycemia, Per Adult Hypoglycemia Treatment Protocol, Starting on Wed09/28/23 at 1340, Until Wed09/30/23 at 1615, Give 15g orally, recheck POCT glucose in 15 minutes, if result less than 70mg/dL, may repeat. After 2 doses notify Practitioner. May continue to treat while waiting for call back. 37.5g tube delivers 15g of glucose hydrALAZINE (APRESOLINE) injection 5 mg 5 mg, Intravenous, Q10MIN PRN, Blood Pressure >, Starting on Wed09/29/23 at 1925, Until Wed09/30/23 at 1615, Must call anesthesia before initiating medication. Give q 10 minutes PRN up to 20 mg (PACU use only), PACU (only) HYDROmorphone (DILAUDID) injection 0.2-0.3 mg 0.2-0.3 mg, Intravenous, Q10MIN PRN, Pain, Starting on Wed09/29/23 at 1925, Until Wed09/30/23 at 1615, PACU USE ONLY 0.2 mg IV q10min prn based on the patients pain scale rating for mild to moderate pain (1-5) 0.3 mg IV q10min prn based on the patients pain scale rating for moderate to severe pain (6 to 10) Total PACU hydromorphone dose not to exceed 2 mg per hour, PACU (only) HYDROmorphone (DILAUDID) injection 0.5 mg 0.5 mg, Intravenous, ONCE, On Wed09/26/23 at 2030, For 1 dose Given 09/26/2023 9:55 PM CDT 0.5 mg insulin lispro (HUMALOG; ADMELOG) injection vial 2-4 Units 2-4 Units, Subcutaneous, PRN BASED ON BLOOD SUGAR, Blood Sugar >, Blood Sugars, Starting on Wed09/29/23 at 1925, PACU PATIENTS ONLY Blood Sugar 151-199 mg/dl give 2 units, Blood Sugar 200-250 mg/dl give 3 units, Blood Sugar > 250 mg/dl give 4 units and call anesthesia, PACU (only) iohexol (OMNIPAQUE 350) 350 MG/ML injection ONCE PRN, Starting on Wed09/29/23 at 1757, Until Julianna 09/30/23 at 1615, Intra-op Given 09/29/2023 5:57 PM CDT 50 mL labetalol (NORMODYNE) injection 5 mg 5 mg, Intravenous, [id number], Blood Pressure >, Starting on Wed09/29/23 at 1925, Until Julianna 09/30/23 at 1615, Must call anesthesia before initiating medication. Give q 5 minutes PRN up to 25 mg. (PACU use only), PACU (only) lactated ringers infusion Intravenous, at 75 mL/hr, CONTINUOUS, Starting on Wed09/27/23 at 0115 Subsequent Bag 09/30/2023 1:24 AM CDT 75 mL/hr Subsequent Bag 09/29/2023 9:06 AM CDT 75 mL/hr Restarted 09/28/2023 11:03 PM CDT 75 mL/hr lidocaine PF (XYLOCAINE) 1 % injection 1 mL 1 mL, Intradermal, PRE-PROCEDURE, Starting on Wed09/29/23 at 1732, For 1 dose, Use up to 1mL to assist with IV starts, Pre-op lubricant (SURGILUBE/KY JELLY) gel ONCE PRN, Starting on Wed09/29/23 at 1757, Intra-op Given 09/29/2023 5:57 PM CDT [address] metoprolol succinate (TOPROL XL) extended release tablet 12.5 mg 12.5 mg, Oral, DAILY, First dose on Wed09/27/23 at 0800, Until Discontinued, Tablet may be split in half, but not crushed. Hold HR<60 or if SBP<120 Given 09/30/2023 9:30 AM CDT 12.5 mg Given 09/27/2023 9:59 AM CDT 12.5 mg ondansetron (ZOFRAN) injection 4 mg 4 mg, Intravenous, ONCE, On Wed09/27/23 at 0045, For 1 dose Given 09/27/2023 1:51 AM CDT 4 mg ondansetron (ZOFRAN) injection 4 mg 4 mg, Intravenous, Q15MIN PRN, Nausea, Starting on Wed09/29/23 at 1925, Until Julianna 09/30/23 at 1615, For 2 doses, Step 1 Ondansetron 4 mg IV If not given in operating room. (PACU use only) If an intra-operative dose was given may repeat up to a total dose of 8 mg (including intra-operative dose). If nausea is not resolved in 15 minutes go to step 2 (Dexamethasone) if ordered otherwise proceed to next antiemetic step., PACU (only) oxyBUTYnin (DITROpan) tablet 2.5 mg 2.5 mg, Oral, BID PRN, Urinary Spasticity, Starting on Wed09/27/23 at 0939, Until Julianna 09/30/23 at 1615 Given 09/29/2023 8:55 AM CDT 2.5 mg Given 09/27/2023 7:56 PM CDT 2.5 mg Given 09/27/2023 9:59 AM CDT 2.5 mg polyethylene glycol (MIRALAX) oral powder 17 g 17 g, Oral, DAILY PRN, Constipation, No stool in the last 2 days, Starting on Wed09/28/23 at 0245, Until Wed09/30/23 at 1615, Cumulative bowel medication orders. Administer based on medications available on AUG. If no stool in last day start Senna BID PRN no stool, if no stool in last 2 days add Miralax DAILY PRN no stool, if no stool in last 3 days add bisacodyl suppository DAILY PRN until patient stools. When patient stools, stop giving PRN meds and continue monitoring for bowel activity. When no stools X 1 day, begin regimen again until patient stools. rosuvastatin (CRESTOR) tablet 10 mg 10 mg, Oral, DAILY, First dose on Wed09/27/23 at 0800, Until Discontinued Given 09/30/2023 9:30 AM CDT 10 mg Given 09/29/2023 8:56 AM CDT 10 mg Given 09/28/2023 8:44 AM CDT 10 mg senna (SENOKOT) tablet 2 Tablet 2 Tablet, Oral, BID PRN, Constipation, No stool in the last day, Starting on Wed09/28/23 at 0245, Until Julianna 09/30/23 at 1615, Cumulative bowel medication orders. Administer based on medications available on AUG. If no stool in last day start Senna BID PRN no stool, if no stool in last 2 days add Miralax DAILY PRN no stool, if no stool in last 3 days add bisacodyl suppository DAILY PRN until patient stools. When patient stools, stop giving PRN meds and continue monitoring for bowel activity. When no stools X 1 day, begin regimen again until patient stools. sennosides-docusate sodium (SENOKOT S) 8.6-50 MG per tablet 1 Tablet 1 Tablet, Oral, BID, First dose on Wed09/28/23 at 2000, Until Discontinued, as laxative/stimulant, stool-softening agent, Indications: Constipation, While on iron Given 09/30/2023 9:30 AM CDT 1 T ablet Given 09/29/2023 9:00 PM CDT 1 Tablet Given 09/29/2023 8:49 AM CDT 1 Tablet sodium chloride 0.9% bolus 1,000 mL 1,000 mL, Intravenous, Administer over 1 Hours, ONCE, On Wed09/26/23 at 2030, For 1 dose Started 09/26/2023 9:48 PM CDT 1,000 mL documented in this encounter Active and Recently Administered Medications Times are shown in CDT. Scheduled Medication Order 09/28/2023 09/29/2023 09/30/2023 aspirin chewable tablet 81 mg 81 mg, Oral, ASPIRIN - DAILY, First dose on Wed09/27/23 at 2000, Until Discontinued 2042 (Given - Provider: Estelle Dahl RN) 2100 (Given - Provider: Oliver Evans RN) ceFAZolin (ANCEF) 2 g in sodium chloride 0.9 % 50 mL IVPB ADS 2 g, Intravenous, Administer over 30 Minutes, ONCE (NON-SCHEDULED), Starting on Wed09/29/23 at 1732, For 1 dose, For patient weight less than or equal to 119 kg PRE-OP, Pre-op cefTRIAXone (ROCEPHIN) 2 g in sodium chloride 0.9 % 100 mL IVPB (CANCELED) 2 g, Intravenous, Administer over 30 Minutes, Q24H (NON-STND), First dose on Wed09/28/23 at 2200, Do NOT infuse in same line with Lactated Ringers (LR), TPN, or other calcium-containing IV solutions due to incompatibility. 222 (Started - Provider: Estelle Dahl RN)230 (Infused - Provider: Benjamin Parks RN) 2145 (Started - Provider: Oliver Evans RN)2243 (Infused - Provider: Oliver Evans RN) cephalexin (KEFLEX) capsule 500 mg 500 mg, Oral, Q12H (NON-STND), First dose on Wed09/30/23 at 2000, For 3 days, Indications: Cystitis clopidogrel (PLAVIX) tablet 75 mg 75 mg, Oral, DAILY, First dose on Wed09/27/23 at 0800, Until Discontinued, On hold since Wed09/27/2023 at 0054 until manually unheld 0800 (Automatically Held) 0800 (Automatically Held) 0800 (Automatically Held)1615 (Unheld by provider in Manage Orders - Provider: Inpatient Template [employer]) cyanocobalamin (VITAMIN B12) tablet 1,000 mcg 1,000 mcg, Oral, DAILY, First dose on Wed09/28/23 at 1415, Until Discontinued, Indications: Vitamin B12 Deficiency 1408 (Given - Provider: Ricky Hagen RN) 0850 (Given - Provider: Kelly Auguste RN) 0930 (Given - Provider: Enedina Martin RN) ferrous sulfate EC tablet 325 mg 325 mg, Oral, BID WITH MEALS, First dose on Wed09/28/23 at 1700, Until Discontinued, 325 mg = 5 grains 1757 (Given - Provider: Estelle Dahl RN) 0850 (Given - Provider: Kelly Auguste RN)1756 (Given - Provider: Oliver Evans RN) 0930 (Given - Provider: Enedina Martin RN) gabapentin (NEURONTIN) capsule 300 mg 300 mg, Oral, TID, First dose on Wed09/27/23 at 0800, Until Discontinued 0844 (Given - Provider: Brea Muir)1408 (Given - Provider: Ricky Hagen RN)2043 (Given - Provider: Estelle Dahl RN) 0850 (Given - Provider: Kelly Auguste RN)1421 (Given - Provider: Kelly Auguste RN)2100 (Given - Provider: Oliver Evans, NEGIN) 0930 (Given - Provider: Enedina Martin RN)1404 (Given - Provider: Enedina Martin RN) lidocaine PF (XYLOCAINE) 1 % injection 1 mL 1 mL, Intradermal, PRE-PROCEDURE, Starting on Wed09/29/23 at 1732, For 1 dose, Use up to 1mL to assist with IV starts, Pre-op metoprolol succinate (TOPROL XL) extended release tablet 12.5 mg 12.5 mg, Oral, DAILY, First dose on Wed09/27/23 at 0800, Until Discontinued, Tablet may be split in half, but not crushed. Hold HR<60 or if SBP<120 0900 (Not Given - Provider: Ricky Hagen RN - Reason: Other (Enter Reason in Comment Area) - Comment: pulse 55) 0850 (Not Given - Provider: Kelly Auguste RN - Reason: Order parameters not met) 0930 (Given - Provider: Enedina Martin RN) rosuvastatin (CRESTOR) tablet 10 mg 10 mg, Oral, DAILY, First dose on Wed09/27/23 at 0800, Until Discontinued 0844 (Given - Provider: Brea Muir) 0856 (Given - Provider: Kelly Auguste RN) 0930 (Given - Provider: Enedina Martin RN) sennosides-docusate sodium (SENOKOT S) 8.6-50 MG per tablet 1 Tablet 1 Tablet, Oral, BID, First dose on Wed09/28/23 at 2000, Until Discontinued, as laxative/stimulant, stool-softening agent, Indications: Constipation, While on iron 2042 (Given - Provider: Estelle Dahl RN) 0849 (Given - Provider: Kelly Auguste RN)2100 (Given - Provider: Oliver Evans RN) 0930 (Given - Provider: Enedina Martin RN) Continuous Medication Order 09/28/2023 09/29/2023 09/30/2023 lactated ringers infusion Intravenous, at 75 mL/hr, CONTINUOUS, Starting on Wed09/27/23 at 0115 0420 (Subsequent Bag - Provider: Isamar Calhoun RN)1940 (Subsequent Bag - Provider: Jayna Alvarenga, NEGIN)2230 (Stopped - Provider: Benjamin Parks RN)2303 (Restarted - Provider: Benjamin Parks RN) 0906 (Subsequent Bag - Provider: Kelly Auguste, NEGIN) 0124 (Subsequent Bag - Provider: Morgan Harper, NEGIN) lactated ringers infusion (CANCELED) Intravenous, at 30 mL/hr, CONTINUOUS, Starting on Wed09/29/23 at 1800, Pre-op 1832 (Started - Provider: Jimena Peraza APRN, VALERI)1929 (Anesthesia Fluid - Provider: Jimena Peraza APRN, CRNA) PRN Medication Order 09/28/2023 09/29/2023 09/30/2023 acetaminophen (TYLENOL) tablet 650 mg 650 mg, Oral, Q6H PRN, Pain/Fever, Initially give acetaminophen for patient with mild pain., Starting on Wed09/27/23 at 0054, Until Wed09/30/23 at 1615, Initially give acetaminophen for patient with mild pain. Acetaminophen may be given WITH other pain medications as adjunct pain relief. Do not give two acetaminophen containing medications within 4 hours of each other. 0857 (Given - Provider: Ricky Hagen RN) 0857 (Given - Provider: Kelly Auguste, NEGIN)1614 (Given - Provider: Oliver Evans RN) benzocaine-menthol (Chloraseptic) lozenge 1 Lozenge 1 Lozenge, Oral, Q2H PRN, Throat Pain, Cough, Starting on Wed09/27/23 at 0054, Until Julianna 09/30/23 at 1615 bisacodyl (DULCOLAX) rectal suppository 10 mg(Linked Group 1) 10 mg, Rectal, DAILY PRN, Constipation, No stool in the last 3 days, Starting on Wed09/28/23 at 0245, Until Wed09/30/23 at 1615, Cumulative bowel medication orders. Administer based on medications available on AUG. If no stool in last day start Senna BID PRN no stool, if no stool in last 2 days add Miralax DAILY PRN no stool, if no stool in last 3 days add bisacodyl suppository DAILY PRN until patient stools. When patient stools, stop giving PRN meds and continue monitoring for bowel activity. When no stools X 1 day, begin regimen again until patient stools. Do not give if Absolute Neutrophil Count (ANC) is 1 k/cmm or less OR platelet count is 50 k/cmm or less. calcium carbonate (TUMS) chewable tablet 1,000 mg 1,000 mg, Oral, Q4H PRN, Heartburn, Upset Stomach, Starting on Wed09/27/23 at 0054, Until Julianna 09/30/23 at 1615, For indigestion/upset stomach dextrose (D50) injection 25 g(Linked Group 2) 25 g, Intravenous, Q15MIN PRN, Hypoglycemia, Per Adult Hypoglycemia Treatment Protocol, Starting on Wed09/28/23 at 1340, Per Hypoglycemic episode: Give 25g IV push, recheck POCT glucose in 15 minutes, if result less than 70mg/dL, may repeat. After 2 doses notify Practitioner. May continue to treat while waiting for call back. fentaNYL (SUBLIMAZE) injection 25-50 mcg 25-50 mcg, Intravenous, [id number], Pain, Starting on Wed09/29/23 at 1925, Until Julianna 09/30/23 at 1615, 25 mcg IV q5min prn based on the patient's pain scale rating for mild to moderate pain (1 to 5). 50 mcg IV q5min prn based on the patient's pain scale rating for moderate to severe pain (6 to 10). Total PACU fentanyl dose not to exceed 200 mcg. Use fentanyl initially for a short acting agent for treatment of acute post operative pain. May use in conjuction with a longer acting agent for optimal pain control. Respiratory rate must be greater than 10 to administer medications., PACU (only) glucagon rDNA (diagnostic) (GLUCAGEN) injection 1 mg(Linked Group 2) 1 mg, Intramuscular, Q15MIN PRN, Hypoglycemia, Per Adult Hypoglycemia Treatment Protocol, Starting on Wed09/28/23 at 1340, Until Julianna 09/30/23 at 1615, Per Hypoglycemic episode: Give 1mg IM, turn patient on side to prevent aspiration if vomits. If appropriate, establish IV access STAT. Recheck POCT glucose in 15 minutes, if result less than 70mg/dL and still no IV access, may repeat 1mg IM x 1. Recheck POCT glucose in 15 minutes, if result is less than 70mg/dL notify Practitioner. glucose (GLUTOSE) 40 % oral gel 15 g of glucose(Linked Group 2) 15 g of glucose, Oral, Q15MIN PRN, Hypoglycemia, Per Adult Hypoglycemia Treatment Protocol, Starting on Wed09/28/23 at 1340, Until Wed09/30/23 at 1615, Give 15g orally, recheck POCT glucose in 15 minutes, if result less than 70mg/dL, may repeat. After 2 doses notify Practitioner. May continue to treat while waiting for call back. 37.5g tube delivers 15g of glucose hydrALAZINE (APRESOLINE) injection 5 mg 5 mg, Intravenous, Q10MIN PRN, Blood Pressure >, Starting on Wed09/29/23 at 1925, Until Wed09/30/23 at 1615, Must call anesthesia before initiating medication. Give q 10 minutes PRN up to 20 mg (PACU use only), PACU (only) HYDROmorphone (DILAUDID) injection 0.2-0.3 mg 0.2-0.3 mg, Intravenous, Q10MIN PRN, Pain, Starting on Wed09/29/23 at 1925, Until Wed09/30/23 at 1615, PACU USE ONLY 0.2 mg IV q10min prn based on the patients pain scale rating for mild to moderate pain (1-5) 0.3 mg IV q10min prn based on the patients pain scale rating for moderate to severe pain (6 to 10) Total PACU hydromorphone dose not to exceed 2 mg per hour, PACU (only) insulin lispro (HUMALOG; ADMELOG) injection vial 2-4 Units 2-4 Units, Subcutaneous, PRN BASED ON BLOOD SUGAR, Blood Sugar >, Blood Sugars, Starting on Wed09/29/23 at 1925, PACU PATIENTS ONLY Blood Sugar 151-199 mg/dl give 2 units, Blood Sugar 200-250 mg/dl give 3 units, Blood Sugar > 250 mg/dl give 4 units and call anesthesia, PACU (only) iohexol (OMNIPAQUE 350) 350 MG/ML injection ONCE PRN, Starting on Wed09/29/23 at 1757, Until Julianna 09/30/23 at 1615, Intra-op 1757 (Given - Provider: Jose Gee MD - Comment: Mixed 1:1 with NaCl on sterile field) labetalol (NORMODYNE) injection 5 mg 5 mg, Intravenous, [id number], Blood Pressure >, Starting on Wed09/29/23 at 1925, Until Julianna 09/30/23 at 1615, Must call anesthesia before initiating medication. Give q 5 minutes PRN up to 25 mg. (PACU use only), PACU (only) lubricant (SURGILUBE/KY JELLY) gel ONCE PRN, Starting on Wed09/29/23 at 1757, Intra-op 1757 (Given - Provider: Jose Gee MD - Comment: On sterile field) melatonin tablet 6 mg 6 mg, Oral, HS PRN, Sedation, Starting on Wed09/27/23 at 0054, Until Julianna 09/30/23 at 1615 ondansetron (ZOFRAN) injection 4 mg 4 mg, Intravenous, Q15MIN PRN, Nausea, Starting on Wed09/29/23 at 1925, Until Julianna 09/30/23 at 1615, For 2 doses, Step 1 Ondansetron 4 mg IV If not given in operating room. (PACU use only) If an intra-operative dose was given may repeat up to a total dose of 8 mg (including intra-operative dose). If nausea is not resolved in 15 minutes go to step 2 (Dexamethasone) if ordered otherwise proceed to next antiemetic step., PACU (only) oxyBUTYnin (DITROpan) tablet 2.5 mg 2.5 mg, Oral, BID PRN, Urinary Spasticity, Starting on Wed09/27/23 at 0939, Until Julianna 09/30/23 at 1615 0855 (Given - Provider: Kelly Auguste RN) polyethylene glycol (MIRALAX) oral powder 17 g(Linked Group 1) 17 g, Oral, DAILY PRN, Constipation, No stool in the last 2 days, Starting on Wed09/28/23 at 0245, Until Julianna 09/30/23 at 1615, Cumulative bowel medication orders. Administer based on medications available on AUG. If no stool in last day start Senna BID PRN no stool, if no stool in last 2 days add Miralax DAILY PRN no stool, if no stool in last 3 days add bisacodyl suppository DAILY PRN until patient stools. When patient stools, stop giving PRN meds and continue monitoring for bowel activity. When no stools X 1 day, begin regimen again until patient stools. senna (SENOKOT) tablet 2 Tablet(Linked Group 1) 2 Tablet, Oral, BID PRN, Constipation, No stool in the last day, Starting on Wed09/28/23 at 0245, Until Julianna 09/30/23 at 1615, Cumulative bowel medication orders. Administer based on medications available on AUG. If no stool in last day start Senna BID PRN no stool, if no stool in last 2 days add Miralax DAILY PRN no stool, if no stool in last 3 days add bisacodyl suppository DAILY PRN until patient stools. When patient stools, stop giving PRN meds and continue monitoring for bowel activity. When no stools X 1 day, begin regimen again until patient stools. 0911 (Not Given - Provider: Ricky Hagen RN - Reason: Patient/family refused) Linked Groups Order Group 1: senna (SENOKOT) tablet 2 TabletJump to med 2 Tablet, Oral, BID PRN, Constipation, No stool in the last day, Starting on Wed09/28/23 at 0245, Until Julianna 09/30/23 at 1615, Cumulative bowel medication orders. Administer based on medications available on AUG. If no stool in last day start Senna BID PRN no stool, if no stool in last 2 days add Miralax DAILY PRN no stool, if no stool in last 3 days add bisacodyl suppository DAILY PRN until patient stools. When patient stools, stop giving PRN meds and continue monitoring for bowel activity. When no stools X 1 day, begin regimen again until patient stools. And polyethylene glycol (MIRALAX) oral powder 17 gJump to med 17 g, Oral, DAILY PRN, Constipation, No stool in the last 2 days, Starting on Wed09/28/23 at 0245, Until Wed09/30/23 at 1615, Cumulative bowel medication orders. Administer based on medications available on AUG. If no stool in last day start Senna BID PRN no stool, if no stool in last 2 days add Miralax DAILY PRN no stool, if no stool in last 3 days add bisacodyl suppository DAILY PRN until patient stools. When patient stools, stop giving PRN meds and continue monitoring for bowel activity. When no stools X 1 day, begin regimen again until patient stools. And bisacodyl (DULCOLAX) rectal suppository 10 mgJump to med 10 mg, Rectal, DAILY PRN, Constipation, No stool in the last 3 days, Starting on Wed09/28/23 at 0245, Until Wed09/30/23 at 1615, Cumulative bowel medication orders. Administer based on medications available on AUG. If no stool in last day start Senna BID PRN no stool, if no stool in last 2 days add Miralax DAILY PRN no stool, if no stool in last 3 days add bisacodyl suppository DAILY PRN until patient stools. When patient stools, stop giving PRN meds and continue monitoring for bowel activity. When no stools X 1 day, begin regimen again until patient stools. Do not give if Absolute Neutrophil Count (ANC) is 1 k/cmm or less OR platelet count is 50 k/cmm or less. Group 2: glucose (GLUTOSE) 40 % oral gel 15 g of glucoseJump to med 15 g of glucose, Oral, Q15MIN PRN, Hypoglycemia, Per Adult Hypoglycemia Treatment Protocol, Starting on Wed09/28/23 at 1340, Until Wed09/30/23 at 1615, Give 15g orally, recheck POCT glucose in 15 minutes, if result less than 70mg/dL, may repeat. After 2 doses notify Practitioner. May continue to treat while waiting for call back. 37.5g tube delivers 15g of glucose Or dextrose (D50) injection 25 gJump to med 25 g, Intravenous, Q15MIN PRN, Hypoglycemia, Per Adult Hypoglycemia Treatment Protocol, Starting on Wed09/28/23 at 1340, Per Hypoglycemic episode: Give 25g IV push, recheck POCT glucose in 15 minutes, if result less than 70mg/dL, may repeat. After 2 doses notify Practitioner. May continue to treat while waiting for call back. Or glucagon rDNA (diagnostic) (GLUCAGEN) injection 1 mgJump to med 1 mg, Intramuscular, Q15MIN PRN, Hypoglycemia, Per Adult Hypoglycemia Treatment Protocol, Starting on Wed09/28/23 at 1340, Until Julianna 09/30/23 at 1615, Per Hypoglycemic episode: Give 1mg IM, turn patient on side to prevent aspiration if vomits. If appropriate, establish IV access STAT. Recheck POCT glucose in 15 minutes, if result less than 70mg/dL and still no IV access, may repeat 1mg IM x 1. Recheck POCT glucose in 15 minutes, if result is less than 70mg/dL notify Practitioner. documented in this encounter Care Teams Compliance Counsel Relationship Specialty Start Date End Date No Primary/Referring, Phy PCP - General 08/26/23 documented as of this encounter
--- OUTSIDE RECORDS SUMMARY | 2023-11-04 22:48 | XMS_ITS | Clinical Summary ---
Author Name Unknown Organization [facility] Address [address], [place] [address] Care Team Providers Care Regional Operations Manager Name Role Phone No Primary/Referring, Phy Primary Care Provider Unavailable Source Comments You are receiving this document as you are listed as the primary care provider,follow-up provider, or the patient has been referred to you for consultation.This is in compliance with the Medicare and[facility] EHR Incentive Program,which states Providers who transition their patient to another setting of careor provider of care or refers their patient to another provider of care shouldprovide summary care record for each transition of care or referral. [facility] Allergies No known active allergies Medications Medication Sig Dispensed Refills Start Date End Date Status rosuvastatin (CRESTOR) 10 MG tablet Take 1 Tablet (10 mg) by mouth daily. 08/11/2023 Active metoprolol succinate (TOPROL XL) 25 MG 24 hour release tablet Take 0.5 Tablets (12.5 mg) by mouth daily. Active nitroglycerin (NITROSTAT) 0.[address] 1 Tablet (0.4 mg) under tongue every 5 minutes as needed for Chest Pain. 08/11/2023 Active gabapentin (NEURONTIN) 300 MG capsule Take 1 Capsule (300 mg) by mouth three times a day. 08/11/2023 Active clopidogrel (PLAVIX) 75 MG tablet Take 1 Tablet (75 mg) by mouth daily. 08/11/2023 Active furosemide (LASIX) 20 MG tablet Take 1 Tablet (20 mg) by mouth daily. HOLD- Do not restart until Sendy is eating and drinking well 09/01/2023 Active lisinopril (ZESTRIL) 2.5 MG tablet Take 1 Tablet (2.5 mg) by mouth daily. HOLD- Do not restart until Ma is eating and drinking well 09/01/2023 Active acetaminophen (TYLENOL) 325 MG tabletIndications:P ain Take 2 Tablets (650 mg) by mouth every 6 hours as needed. Indications: Pain 100 Tablet 09/30/2023 Active cyanocobalamin (VITAMIN B12) 1000 MCG tabletIndications:V itamin B12 Deficiency Take 1 Tablet (1,000 mcg) by mouth daily. Indications: Inadequate Vitamin B12 30 Tablet 1 10/01/2023 Active ferrous sulfate 325 (65 Fe) MG tabletIndications:I ace Deficiency Take 1 Tablet (325 mg) by mouth two times a day with meals. Indications: Iron Deficiency 60 Tablet 1 09/30/2023 Active Active Problems Problem Noted Date Diagnosed Date Flank pain 09/27/2023 Pyuria 09/27/2023 Hypotension 09/01/2023 Muscle pain 09/01/2023 Left ureteral stone 08/27/2023 Hydronephrosis of left kidney 08/27/2023 Complicated UTI (urinary tract infection) 2023 Essential hypertension 08/27/2023 Chronic heart failure with preserved ejection fr action 05/07/2020 Severe mitral regurgitation 04/18/2020 Cataract, nuclear sclerotic senile, bilateral Dermatochalasis of both upper eyelids 07/30/2017 Dyslipidemia 05/30/2014 Coronary artery disease 05/30/2014 S/P CABG x 3 02/06/2010 Overview: 02/05/10 CAB x 3 (LUNA-LAD, SV-OM, SV-PLB) and endoscopic vein harvest (left leg) per Dr. Lino Encounters Date Type Department Care Team Description 10/05/2023 10:00 AM CDT Office Visit [facility] [address] [facility] [place] [address] Masha Sheppard PA-C Nephrolithiasis (Primary Dx) 09/29/2023 6:32 PM CDT Anesthesia Event Operating Room [address] [place] [address] [id number] Jr Zheng MD 09/29/2023 5:45 PM CDT - 09/29/2023 7:15 PM CDT Surgery Operating Room [address] [place] [address] 08777 Jose Gee MD Thulium LASER CYSTOSCOPIC REMOVAL URETERAL STONE WITH LEFT URETERAL STENT EXCHANGE, LEFT RETROGRADE PYELOGRAM, STONE BASKET EXTRACTION 09/29/2023 5:30 PM CDT Ancillary Procedure [facility] [address] [place] [address] 44135 09/27/2023 Telephone [facility] [address] [place] [address] [id number] Jenna Fermin PA-C 09/26/2023 8:00 PM CDT Ancillary Procedure [facility] [address] [place] [address] 28134 09/26/2023 7:33 PM CDT - 09/30/2023 2:15 PM CDT Hospital Encounter RH C[address] [place] [address] 56566 Edilma Sandy MD Aberra, Michael E, MD Heller, Jeffrey A, MD Muigai, Maureen M, PA-C Greseth, Gabriel J, SACK SORTER, DEEP SUBMERGENCE VEHICLE OPERATOR Simran Kunz SACK SORTER, DEEP SUBMERGENCE VEHICLE OPERATOR Left ureteral stone (Primary Dx); Left flank pain; Urinary tract infection with hematuria, site unspecified; Renal stones; Pain; Hydronephrosis of left kidney; Complicated UTI (urinary tract infection); Hematuria syndrome; Hydronephrosis with renal and ureteral calculus obstruction Discharge Disposition: Home 09/26/2023 Orders Only HIM DEPARTMENT Provider, MD Paty 09/14/2023 Telephone [facility] [address] [facility] [place] [address] Unknown, Physician Future Appointments 09/01/2023 11:10 AM INFORMATION SERVICES MANAGER Ancillary Procedure [facility] [address] [place] [address] 16383 09/01/2023 3:40 AM INFORMATION SERVICES MANAGER Ancillary Procedure [facility] [address] [place] [address] 53682 09/01/2023 3:22 AM INFORMATION SERVICES MANAGER - 09/01/2023 6:32 PM INFORMATION SERVICES MANAGER Emergency Emergency Dept [address] [place] [address] 45807 Amaya Driscoll MD Dohlen, MD Marcello Fleming Molly R, MD Hernandez, Bradley S, MD Hypotension, unspecified hypotension type (Primary Dx); Influenza-like illness; Hypotension due to hypovolemia; Elevated troponin; Weakness Discharge Disposition: Home 08/27/2023 7:34 AM INFORMATION SERVICES MANAGER Anesthesia Event Operating Room [address] [place] [address] 35678 Kerri Quezada MD Akers, Jonathan S, APRN, HEALTH CLAIMS EXAMINER 08/27/2023 7:25 AM INFORMATION SERVICES MANAGER - 08/27/2023 8:30 AM INFORMATION SERVICES MANAGER Surgery Operating Room [address] [place] [address] 45779 Mira Price MD Cystoscopy, Left retrograde pyelogram, Left ureteral stent placement (6 Bulgarian x 22 cm double J), Negrete catheter placement 08/27/2023 7:05 AM INFORMATION SERVICES MANAGER Ancillary Procedure [facility] [address] [place] [address] 6[address] 08/27/2023 Prep for Surgery UROLOGY IP SERVICE [address] [place] [address] 83433 Mira Price MD Left ureteral stone (Primary Dx) 08/27/2023 Prep for Surgery UROLOGY IP SERVICE [address] [place] [address] 84828 Mira Price MD Left ureteral stone (Primary Dx) 08/26/2023 9:30 PM INFORMATION SERVICES MANAGER Ancillary Procedure [facility] [address] [place] [address] [id number] 08/26/2023 7:40 PM INFORMATION SERVICES MANAGER Ancillary Procedure [facility] [address] [place] [address] 95877 08/26/2023 7:06 PM INFORMATION SERVICES MANAGER - 08/29/2023 2:00 PM INFORMATION SERVICES MANAGER Hospital Encounter [id number] [place] [address] 14620 Garrett Aquino MD Walter, Joseph W, MD Aberra, MD Alicia Wang Ashley V, MD Walsh, Taylor C, PAPriyaC Complicated UTI (urinary tract infection) (Primary Dx); Nephrolithiasis; Urinary tract infection with hematuria, site unspecified; Flank pain; Hydronephrosis, unspecified hydronephrosis type; Left ureteral stone Discharge Disposition: Home 08/26/2023 Orders Only HIM DEPARTMENT Provider, MD Paty from Last 3 Months Social History Tobacco Use Types Packs/Day Years [...] place to sleep or slept in a m[facility]p (including now)? No 09/27/2023 Sex and Gender Information Value Date Recorded Sex Assigned at Not on file Gender Identity Not on file Sexual Orientation Not on file Last Filed Vital Signs Vital Sign Reading [...] Mass Index 35.6 09/27/2023 12:56 AM CDT Plan of Treatment Health Maintenance Due Date Last Done Comments Hep C Screening (Preventive Services) 1945 Medicare Annual Wellness Visit 1945 Zoster/Shingles (1 of 2) 1994 Dexa 2009 COVID-19 Vaccine (3 - season) 2023 08/31/2020, 08/10/2020 Influenza (Season Ended) 2024 020, 03/20/2019, 04/11/2018, Additional history exists DTaP/Tdap/Td (2 - Tdap) 11/18/2030 11/19/19 21, 03/17/2000, 10/25/1981, Additional history exists Pneumococcal 65+ Yrs Completed 04/15/2020, 02/13/20 10 HepA Aged Out No longer eligi ble based on patient's age to complete this topic HepB Aged Out No longer eligi ble based on patient's age to complete this topic Hib Aged Out No longer eligi ble based on patient's age to complete this topic IPV (Polio) Aged Out No longer eligi ble based on patient's age to complete this topic MCV4 Aged Out No longer eligi ble based on patient's age to complete this topic Medical Devices Implanted Type Area Director Operations Broadcast Device Identifier Shelf Expiration Date Model / Serial / Lot Stent Ureteral Ultra 6x22 - Polaris - [id number] Implanted:Qty: 1 on 09/29/2023 by Jose Gee MD at [facility] DEVICE Left: [facility] 05/14/2026 [id number] / / [id number] Explanted Type Area Director Operations Broadcast Device Identifier Shelf Expiration Date Model / Serial / Lot Stent Ureteral Ultra 6x22 - Polaris - [id number] Implanted:Qty: 1 on 08/27/2023 by Mira Price MD at [facility] Explanted:Qty: 1 on 09/29/2023 by Jose Gee MD at [facility] DEVICE Left: URETER [employer] [facility] 04/01/2026 [id number] / / [id number] Procedures Procedure Name Priority Date/Time Associated Diagnosis Comments COMPLETE BLOOD COUNT-NO DIFF Routine 09/30/2023 7:24 AM CDT BASIC METABOLIC PANEL Routine 09/30/2023 7:24 AM CDT GLUCOSE, WHOLE [...] FAST RECOMMENDED) Routine 09/27/2023 2:03 PM CDT HGB A1C Add-On 09/27/2023 7:17 AM CDT VITAMIN B12 ONLY Add-On 09/27/2023 7:17 AM CDT IRON PROFILE (IRON,TIBC,%SAT.(CALC)) Add-On 09/27/2023 7:17 AM CDT COMPLETE BLOOD COUNT-W/DIFF Routine 09/27/2023 7:17 AM CDT BASIC METABOLIC PANEL Routine 09/27/2023 7:17 AM CDT CBC AND DIFFERENTIAL PANEL Routine 09/27/2023 7:17 AM CDT GLUCOSE, WHOLE BLOOD POCT Routine 09/27/2023 4:[address] ABD PELVIS W IV CONT STAT 09/26/19 24 10:40 PM CDT LIPASE STAT 09/26/2023 9:48 PM CDT LIVER PANEL(HEPATIC FUNCTION PANEL) STAT 09/26/2023 9:48 PM CDT BASIC METABOLIC PANEL STAT 09/26/2023 9:48 PM CDT COMPLETE BLOOD COUNT-NO DIFF STAT 09/26/2023 9:48 PM CDT URINE CULTURE STAT 09/26/2023 9:02 PM CDT UA CONDITIONAL UC STAT 09/26/2023 9:0 2 PM CDT EKG 09/26/2023 CT HEAD WO IV CONT STAT 09/01/2023 11:21 AM INFORMATION SERVICES MANAGER [id number] LACTATE, WHOLE BLOOD Routine 09/01/2023 10:27 AM INFORMATION SERVICES MANAGER 43663 ELECTROCARDIOGRAM TRACING STAT 09/01/2023 6:49 AM INFORMATION SERVICES MANAGER FERRITIN Add-On 09/01/2023 6:45 AM INFORMATION SERVICES MANAGER IRON PROFILE (IRON,TIBC,%SAT.(CALC)) Add-On 09/01/2023 6:45 AM INFORMATION SERVICES MANAGER TROPONIN I STAT 09/01/2023 6:45 AM INFORMATION SERVICES MANAGER BLOOD CULTURE Routine 09/01/2023 6:25 AM INFORMATION SERVICES MANAGER BLOOD CULTURE Routine 09/01/2023 6:25 AM INFORMATION SERVICES MANAGER BLOOD CULTURE Routine 09/01/2023 6:25 AM INFORMATION SERVICES MANAGER BLOOD CULTURE Routine 09/01/2023 6:25 AM INFORMATION SERVICES MANAGER [id number] LACTATE, WHOLE BLOOD Routine 09/01/2023 6:19 AM INFORMATION SERVICES MANAGER URINE CULTURE STAT 09/01/2023 5:02 AM INFORMATION SERVICES MANAGER UA CONDITIONAL UC STAT 09/01/2023 5:0 2 AM INFORMATION SERVICES MANAGER XR CHEST 2 VIEWS STAT 09/01/2023 4:10 AM INFORMATION SERVICES MANAGER ECG-ROUTINE 12 LEAD; INTRPT & REPRT STAT 09/01/2023 12:12 AM INFORMATION SERVICES MANAGER PROCALCITONIN Add-On 09/01/2023 12:00 AM INFORMATION SERVICES MANAGER CORTISOL Add-On 09/01/2023 12:00 AM INFORMATION SERVICES MANAGER TROPONIN I STAT Add-On 09/01/2023 12:00 AM INFORMATION SERVICES MANAGER BASIC METABOLIC PANEL STAT 09/01/2023 12:00 AM INFORMATION SERVICES MANAGER COMPLETE BLOOD COUNT-NO DIFF STAT 09/01/2023 12:00 AM INFORMATION SERVICES MANAGER RSV, MOLECULAR DETECTION STAT 08/31/2023 11:59 PM INFORMATION SERVICES MANAGER INFLUENZA VIRUS A AND B, MOLECULAR DETECTION STAT 08/31/2023 11:59 PM INFORMATION SERVICES MANAGER 2019 NOVEL CORONAVIRUS STAT 11:59 PM INFORMATION SERVICES MANAGER COVID/INFLUENZA A&B/RSV STAT 08/31/19 24 11:59 PM INFORMATION SERVICES MANAGER BASIC METABOLIC PANEL Routine 08/29/2023 6:55 AM INFORMATION SERVICES MANAGER COMPLETE BLOOD COUNT-NO DIFF Routine 08/29/2023 6:55 AM INFORMATION SERVICES MANAGER INPATIENT TELEMETRY MONITORING Routine 08/28/2023 11:44 PM INFORMATION SERVICES MANAGER IV INSERTION(LAB TO PERFORM) STAT 08/28/2023 11:55 AM INFORMATION SERVICES MANAGER BLOOD CULTURE Routine 08/28/2023 9:17 AM INFORMATION SERVICES MANAGER BLOOD CULTURE Routine 08/28/2023 9:17 AM INFORMATION SERVICES MANAGER BASIC METABOLIC PANEL Routine 08/28/2023 9:17 AM INFORMATION SERVICES MANAGER COMPLETE BLOOD COUNT-NO DIFF Routine 08/28/2023 9:17 AM INFORMATION SERVICES MANAGER LACTATE Routine 08/28/2023 9:17 AM INFORMATION SERVICES MANAGER BLOOD CULTURE Routine 08/28/2023 9:15 AM INFORMATION SERVICES MANAGER BLOOD CULTURE Routine 08/28/2023 9:15 AM INFORMATION SERVICES MANAGER INPATIENT TELEMETRY MONITORING Routine 08/28/2023 5:23 AM INFORMATION SERVICES MANAGER INPATIENT TELEMETRY MONITORING Routine 08/28/2023 5:23 AM INFORMATION SERVICES MANAGER INPATIENT TELEMETRY MONITORING Routine 08/28/2023 5:23 AM INFORMATION SERVICES MANAGER INPATIENT TELEMETRY MONITORING Routine 08/28/2023 5:23 AM INFORMATION SERVICES MANAGER INPATIENT TELEMETRY MONITORING Routine 08/27/2023 11:31 PM INFORMATION SERVICES MANAGER LACTATE STAT 08/27/2023 9:18 PM INFORMATION SERVICES MANAGER INPATIENT TELEMETRY MONITORING Routine 08/27/2023 4:54 PM INFORMATION SERVICES MANAGER INPATIENT TELEMETRY MONITORING Routine 08/27/2023 9:08 AM INFORMATION SERVICES MANAGER INPATIENT TELEMETRY MONITORING Routine 08/27/2023 9:08 AM INFORMATION SERVICES MANAGER XR C-ARM 1-1.5 HOURS Routine 08/27/2023 8:16 AM INFORMATION SERVICES MANAGER GLUCOSE, WHOLE BLOOD POCT Routine 08/27/2023 8:16 AM INFORMATION SERVICES MANAGER CYSTOSCOPIC PLACEMENT URETERAL STENT (SDEX) Same Day Recovery 08/27/2023 7:22 AM INFORMATION SERVICES MANAGER Left ureteral stone GLUCOSE, WHOLE BLOOD POCT Routine 08/27/2023 6:09 AM INFORMATION SERVICES MANAGER ANTIBODY SCREEN STAT 08/27/2023 5:09 AM INFORMATION SERVICES MANAGER BLOOD TYPE STAT 08/27/2023 5:09 AM INFORMATION SERVICES MANAGER TYPE AND SCREEN STAT 08/27/2023 5:09 AM INFORMATION SERVICES MANAGER LIVER PANEL(HEPATIC FUNCTION PANEL) STAT 08/27/2023 5:08 AM INFORMATION SERVICES MANAGER INR/PROTIME STAT 08/27/2023 5:08 AM INFORMATION SERVICES MANAGER COMPLETE BLOOD COUNT-NO DIFF STAT 08/27/2023 5:08 AM INFORMATION SERVICES MANAGER BASIC METABOLIC PANEL STAT 08/27/2023 5:08 AM INFORMATION SERVICES MANAGER URINE CULTURE STAT 08/27/2023 12:35 AM INFORMATION SERVICES MANAGER UA CONDITIONAL UC STAT 08/27/2023 12:35 AM INFORMATION SERVICES MANAGER CT ANGIO CHEST AND CT ABD PELVIS W IV CONT STAT 08/26/2023 11:01 PM INFORMATION SERVICES MANAGER D DIMER, QUANTITATIVE STAT 08/26/2023 8:54 PM INFORMATION SERVICES MANAGER [id number] ELECTROCARDIOGRAM TRACING STAT 08/26/2023 8:49 PM INFORMATION SERVICES MANAGER XR PORTABLE CHEST 1 VIEW STAT 08/26/2023 7:54 PM INFORMATION SERVICES MANAGER RSV, MOLECULAR DETECTION STAT 08/26/2023 7:44 PM INFORMATION SERVICES MANAGER INFLUENZA VIRUS A AND B, MOLECULAR DETECTION STAT 08/26/2023 7:44 PM INFORMATION SERVICES MANAGER 2019 NOVEL CORONAVIRUS STAT 7:44 PM INFORMATION SERVICES MANAGER COVID/INFLUENZA A&B/RSV STAT 08/26/19 7:44 PM INFORMATION SERVICES MANAGER BT SECOND DRAW Routine 08/26/2023 7:42 PM INFORMATION SERVICES MANAGER BRAIN NATRIURETIC PEPTIDE (BNP) STAT 08/26/2023 7:42 PM INFORMATION SERVICES MANAGER TROPONIN I Specified Time 08/26/2023 7:42 PM INFORMATION SERVICES MANAGER BASIC METABOLIC PANEL STAT 08/26/2023 7:42 PM INFORMATION SERVICES MANAGER COMPLETE BLOOD COUNT-NO DIFF STAT 08/26/2023 7:42 PM INFORMATION SERVICES MANAGER EKG 08/26/2023 from Last 3 Months Results * (ABNORMAL) Basic Metabolic Panel (09/30/2023 7:24 AM CDT) Only the most recent of9 resultswithin the time period is included. Sodium 140 136 - 145 mmol/L 09/30/2023 8:01 AM [facility] Potassium 4.1 3.5 - 5.1 mmol/L 09/30/2023 8:01 AM [facility] Chloride 106 98 - 109 mmol/L 09/30/2023 8:01 AM [facility] CO2 22 20 - 29 mmol/L 09/30/2023 8:01 AM [facility] Anion Gap 12 7 - 16 mmol/L 09/30/2023 8:01 AM [facility] Calcium 9.2 8.4 - 10.4 mg/dL 09/30/2023 8:01 AM [facility] BUN 11 7 - 26 mg/dL 09/30/2023 8:01 AM [facility] Creatinine 0.71 0.55 - 1.02 mg/dL 09/30/2023 8:01 AM [facility] Glucose 119(H) 70 - 100 mg/dL 09/30/2023 8:01 AM [facility] Comment:The given reference range is for the fasting state. Non-fasting reference range for glucose is 70 - 180 mg/dL. GFR, Estimated >60 >60 mL/min/1.7 3m2 09/30/2023 8:01 AM [facility] Blood Venipuncture / Unknown 09/30/2023 7:24 AM CDT 09/30/2023 7:33 AM CDT Simran Kunz APRN, DEEP SUBMERGENCE VEHICLE OPERATOR LAB_[address] [address], [facility] * (ABNORMAL) Complete Blood Count-No Diff (09/30/2023 7:24 AM CDT) Only the most recent of7 resultswithin the time period is included. WBC 6.5 3.5 - 10.5 x10(9)/L 09/30/2023 7:40 AM [facility] RBC 4.33 3.90 - 5.03 x10(12)/L 09/30/2023 7:40 AM [facility] Hemoglobin 11.1(L) 12.0 - 15.5 g/dL 09/30/2023 7:40 AM [facility] HCT 36.2 34.9 - 44.5 % 09/30/2023 7:40 AM [facility] MCV 83.6 80.0 - 100.0 fL 09/30/2023 7:40 AM [facility] MCH 25.6(L) 27.6 - 33.3 pg 09/30/2023 7:40 AM [facility] MCHC 30.7(L) 31.5 - 35.2 g/dL 09/30/2023 7:40 AM [facility] RDW 14.9 11.9 - 15.5 % 09/30/2023 7:40 AM [facility] Platelets 200 150 - 450 x10(9)/L 09/30/2023 7:40 AM [facility] Automated NRBC 0 <=0 /100 WBC 09/30/2023 7:40 AM [facility] Blood Venipuncture / Unknown 09/30/2023 7:24 AM CDT 09/30/2023 7:33 AM CDT Simran Kunz APRN, CNP LAB_[address] * Glucose, Whole Blood POCT (09/29/2023 7:39 PM CDT) Only the most recent of5 resultswithin the time period is included. Glucose, Whole Blood 109 70 - 180 mg/dL 09/29/2023 7:41 PM CDT [facility] Performing Location [facility]CLAB PACU 09/29/2023 7:41 PM CDT [facility] Blood 09/29/2023 7:39 PM CDT 09/29/2023 7:41 PM CDT Simran Kunz APRN, CNP LAB_1 Performing Organization Address [facility] de Phone Number [address] * XR C-Arm 1-1.5 Hours (09/29/2023 7:28 PM CDT) Only the most recent of2 resultswithin the time period is included. Anatomical Region Laterality Modality X-Ray Angiograph y Narrative 09/29/2023 7:29 PM CDT Fluoroscopy provided by a resident in diagnostic radiology. Exact fluoroscopy time is documented in end of exam information in EPIC Simran Kunz APRN, CNP RAD GD * IV Insertion, LST Perform (09/28/2023 9:41 AM CDT) Only the most recent of2 resultswithin the time period is included. IV INSERTION, LST PERFORM (LAB) Done 09/28/2023 12:00 PM CDT [facility] Other Specimen Type IV Start / Unknown 09/28/2023 9:41 AM CDT 09/28/2023 10:02 AM CDT Simran L Kunz SACK SORTER, DEEP SUBMERGENCE VEHICLE OPERATOR LAB_1 [facility] [address] * Folate Only (4Hr Fast Recommended) (09/27/2023 2:03 PM CDT) Pathologist [facility] Folate 11.7 >=7.0 ng/mL 09/29/2023 11:57 AM CDT [facility] Blood Venipuncture / Unknown 09/27/2023 2:03 PM CDT 09/27/2023 2:22 PM CDT Gordon Lama APRN, RICARDO LAB_1 Performing Organization Address City/[facility]/ZIP Co de Phone Number [facility] [address] * (ABNORMAL) Complete Blood Count-W/Diff (09/27/2023 7:17 AM CDT) Pathologist [facility] WBC 4.2 3.5 - 10.5 x10(9)/L 09/27/2023 7:34 AM [facility] RBC 3.89(L) 3.90 - 5.03 x10(12)/L 09/27/2023 7:34 AM [facility] Hemoglobin 9.9(L) 12.0 - 15.5 g/dL 09/27/2023 7:34 AM [facility] HCT 33.4(L) 34.9 - 44.5 % 09/27/2023 7:34 AM [facility] MCV 85.9 80.0 - 100.0 fL 09/27/2023 7:34 AM [facility] MCH 25.4(L) 27.6 - 33.3 pg 09/27/2023 7:34 AM [facility] MCHC 29.6(L) 31.5 - 35.2 g/dL 09/27/2023 7:34 AM [facility] RDW 15.6(H) 11.9 - 15.5 % 09/27/2023 7:34 AM [facility] Platelets 167 150 - 450 x10(9)/L 09/27/2023 7:34 AM [facility] Automated NRBC 0 <=0 /100 WBC 09/27/2023 7:34 AM [facility] Neutrophil Absolute 2.4 1.7 - 7.0 10(9)/L 09/27/2023 7:34 AM [facility] Lymphocyte Absolute 1.1 1.0 - 4.8 10(9)/L 09/27/2023 7:34 AM [facility] Monocyte Absolute 0.4 0.2 - 0.9 10(9)/L 09/27/2023 7:34 AM [facility] Eosinophil Absolute 0.2 0.0 - 0.5 10(9)/L 09/27/2023 7:34 AM [facility] Basophil Absolute 0.0 0.0 - 0.3 10(9)/L 09/27/2023 7:34 AM [facility] Immature Granulocyte % 0.2 0.0 - 0.5 % 09/27/2023 7:34 AM [facility] Blood Venipuncture / Unknown 09/27/2023 7:17 AM CDT 09/27/2023 7:24 AM CDT Filemon Rachel MD LAB_[address] * (ABNORMAL) Hgb A1C (09/27/2023 7:17 AM CDT) Hemoglobin A1C 6.6(H) <=5.6 % 09/28/2023 10:59 AM T [facility] Estimated Average Glucose (Calc) 143 < 117 mg/dL 09/28/2023 10:59 AM [facility] Comment:Estimated average gl ucose (eAG) converts A1c into glucose units (mg/dL) and estimates average glucose over the past approximately 3 months. The eAG reference interval (<117 mg/dL) corresponds to an A1c of <5.7%. Blood Venipuncture / Unknown 09/27/2023 7:17 AM CDT 09/27/2023 7:24 AM CDT Narrative [facility] - 09/28/2023 10:59 AM CDT For patients not previously diagnosed with diabetes: 5.7-6.4%: Increased risk for diabetes 6.5% and greater: Diagnostic for diabetes For patients diagnosed with diabetes: <8.0%: Goal of therapy for ages 18-75 Clinicians may recommend a higher or lower goal for specific individuals. Gordon Lama APRN, CNP LAB_1 Performing Organization Address [facility] de Phone Number [facility] [address] * (ABNORMAL) Vitamin B12 Only (09/27/2023 7:17 AM CDT) Vitamin B12 189(L) 213 - 816 pg/mL 09/28/2023 12:02 PM CDT [facility] Blood Venipuncture / Unknown 09/27/2023 7:17 AM CDT 09/27/2023 7:24 AM CDT [facility] - 09/28/2023 12:02 PM CDT Borderline low serum Vitamin B12 values may not be diagnositic of B12 deficiency (140 to 209 pg/mL). Consider serum methylmalonic acid and homocysteine levels for confirmation. Serum B12 far below normal indicates deficency (<140 pg/mL). Gordon Lama APRN, CNP LAB_1 Performing Organization Address [facility] de Phone Number [facility] [address] * (ABNORMAL) Iron Profile (Iron,TIBC,%Sat.(Calc)) (09/27/2023 7:17 AM CDT) Only the most recent of2 resultswithin the time period is included. Iron 29(L) 50 - 170 mcg/dL 09/27/2023 1:52 PM CDT [facility] Transferrin 247 180 - 382 mg/dL 09/27/2023 1:52 PM CDT [facility] TIBC, Calculated 309 240 - 450 mcg/dL 09/27/2023 1:52 PM CDT [facility] % Saturation, Calculated 9(L) 10 - 50 % 09/27/2023 1:52 PM CDT [facility] TIBC Interpretation Low iron, normal TIBC, possible iron deficiency. 09/27/2023 1:52 PM CDT [facility] Blood Venipuncture / Unknown 09/27/2023 7:17 AM CDT 09/27/2023 7:24 AM CDT Gordon Lama APRN, DEEP SUBMERGENCE VEHICLE OPERATOR LAB_1 Performing Organization Address City/State/[facility] Co de Phone Number [facility] [address] [place] [address], [facility] * CT Abd Pelvis W IV Cont (09/26/2023 10:40 PM CDT) Anatomical Region Laterality Modality Abdomen, Pelvis Computed Tomogra phy 09/26/2023 10:4 0 PM CDT Narrative 09/26/2023 10:55 PM CDT EXAM: CT ABD PELVIS W IV CONT LOCATION: [facility] DATE: 09/26/2023 INDICATION: Left-sided abdominal pain, with [...] CT ABD PELVIS W IV CONT LOCATION: [facility] DATE: 09/26/2023 INDICATION: Left-sided abdominal [...] spine. Grey Espinosa PA-C RAD CT * (ABNORMAL) Liver Panel (Hepatic Function Panel) (09/26/2023 9:48 PM CDT) Only the most recent of2 resultswithin the time period is included. Alkaline Phosphatase 124 40 - 150 U/L 09/26/2023 10:23 PM CDT [facility] Bilirubin, Total 0.6 0.2 - 1.2 mg/dL 09/26/2023 10:23 PM CDT [facility] Bilirubin, Direct 0.2 0.0 - 0.5 mg/dL 09/26/2023 10:23 PM CDT [facility] AST (SGOT) 14 10 - 40 U/L 09/26/2023 10:23 PM [facility] ALT (SGPT) 11 <=55 U/L 09/26/2023 10:23 PM CDT [facility] Protein, Total 6.5 6.4 - 8.3 g/dL 09/26/2023 10:23 PM CDT [facility] Albumin 2.8(L) 3.5 - 5.0 g/dL 09/26/2023 10:23 PM T [facility] Blood Venipuncture / Unknown 09/26/2023 9:48 PM CDT 09/26/2023 9:53 PM CDT Grey Espinosa PA-C LAB_[address] [address], [facility] * Lipase (09/26/2023 9:48 PM CDT) Pathologist [facility] Lipase 11 8 - 78 U/L 09/26/2023 10:23 PM CDT [facility] Blood Venipuncture / Unknown 09/26/2023 9:48 PM CDT 09/26/2023 9:53 PM CDT Grey Angel Jesús ATKINS LAB_1 Performing Organization Address [facility] Phone [address] * (ABNORMAL) Urine Culture (09/26/2023 9:02 PM CDT) Only the most recent of3 resultswithin the time period is included. [facility] Urine Culture Growth(A) 09/27/2023 5:20 PM CDT [facility] Urine Culture <10,000 CFU/mL Mixed Bacterial Growth 09/27/2023 5:20 PM CDT [facility] Comment: Mixed Bacterial Growth indicates the specimen is likely contaminated at collection with urogenital and/or fecal lou. The presence of organisms at <10,000 cfu/ml in culture, UTI unlikely. Urine URINE SPECIMEN COLLECTION, CLEAN CATCH / Unknown Non-blood Collection / Unknown 09/26/2023 9:02 PM CDT 09/26/2023 9:31 PM CDT Greysilvana Espinosa PA-C LAB_1 Performing Organization Address [facility] Phone [address] * (ABNORMAL) UA Conditional UC: Clean Catch (09/26/2023 9:02 PM CDT) Only the most recent of3 resultswithin the time period is included. [facility] Urine Culture Comment Urinalysis results meet criteria for reflex, culture performed. 09/26/2023 9:39 PM CDT [facility] Urine Color [place] 09/26/2023 9:39 PM CDT [facility] Urine Clarity Turbid(A) Clear 09/26/2023 9:39 PM CDT [facility] Specific [place], Urine 1.020 <1.030 09/26/2023 9:39 PM [facility] Urine 6.0 5.0 - 8.0 09/26/2023 9:39 PM [facility] Protein, Urine Qual (mg/dL) 100(A) Negative, 10 , 20 09/26/2023 9:39 PM [facility] Glucose Urine Qual (mg/dL) Normal (Negative) Normal (Negative), 30 , 50 09/26/2023 9:39 PM [facility] Ketones, Urine (mg/dL) Negative Negative, Trace 09/26/2023 9:39 PM [facility] Urobilinogen, Urine (EU/dL) Normal (Negative) Normal (Negative) 09/26/2023 9:39 PM [facility] Bilirubin Urine (mg/dL) Negative Negative 09/26/2023 9:39 PM [facility] Blood, Urine (mg/dL) OVER (>1.0, Large)(A) Negative, 0.03 (Trace) 09/26/2023 9:39 PM [facility] Nitrite Urine Negative Negative 09/26/2023 9:39 PM [facility] Leukocyte Esterase, Urine (Ant/uL) 500 (Large)(A) Negative, 25 (Trace) 09/26/2023 9:39 PM [facility] Red Blood Cells >180(H) 0 - 3 /HPF 09/26/2023 9:39 PM [facility] White Blood Cells 116(H) 0 - 5 /HPF 09/26/2023 9:39 PM [facility] Squamous Epithelial Cells Occasional None Seen, Occasional, Few /HPF 09/26/2023 9:39 PM [facility] Mucus Present(A) None Seen /HPF 09/26/2023 9:39 PM [facility] Urine Source Clean Catch 09/26/2023 9:39 PM [facility] Urine URINE SPECIMEN COLLECTION, CLEAN CATCH / Unknown Non-blood Collection / Unknown 09/26/2023 9:02 PM CDT 09/26/2023 9:07 PM [facility] - 09/26/2023 9:39 PM CDT The qualitative interpretive guidance provided (e.g., small, moderate, large) is intended to aid in quantitative result interpretation. It is not itself an FDA-cleared test result. Grey Espinosa PA-C LAB_[address] [address], [facility] * EKG (09/26/2023) Only the most recent of2 resultswithin the time period is included. Interface Provider EKG * CT Head WO IV Cont (09/01/2023 11:21 AM INFORMATION SERVICES MANAGER) Anatomical Region Laterality Modality Head Computed Tomogra phy 09/01/2023 11:2 1 AM INFORMATION SERVICES MANAGER Narrative 09/01/2023 11:33 AM INFORMATION SERVICES MANAGER EXAM: CT HEAD WO IV CONT LOCATION: [facility] DATE/TIME: 09/01/2023 11:21 AM INFORMATION SERVICES MANAGER INDICATION: Lower extremity numbness COMPARISON: None available at time of dictation TECHNIQUE: Routine CT Head without IV contrast. Multiplanar reformats. Dose reduction techniques were used. FINDINGS: INTRACRANIAL CONTENTS: No acute intracranial hemorrhage. No CT evidence of acute infarct. Sequelae of mild chronic microangiopathy. Mild cerebral volume loss without hydrocephalus. No extra-axial fluid collections. ??Patent basal cisterns. Empty sella turcica morphology. VISUALIZED ORBITS/SINUSES/MASTOIDS: Postoperative change of bilateral lenses, otherwise the orbits are unremarkable. The visualized paranasal sinuses and temporal bone structures are well-aerated. BONES/SOFT TISSUES: The calvarium and skull base are unremarkable. IMPRESSION: 1. Senescent changes and sequelae of chronic microangiopathy without acute intracranial abnormality. Procedure Note Garrett Edwards MD - 09/01/2023 EXAM: CT HEAD WO IV CONT LOCATION: [facility] DATE/TIME: 09/01/2023 11:21 AM INFORMATION SERVICES MANAGER INDICATION: Lower extremity numbness COMPARISON: None available at time of dictation TECHNIQUE: Routine CT Head without IV contrast. Multiplanar reformats.Dose reduction techniques were used. FINDINGS: INTRACRANIAL CONTENTS: No acute intracranial hemorrhage. No CT evidence ofacute infarct. Sequelae of mild chronic microangiopathy. Mild cerebralvolume loss without hydrocephalus. No extra-axial fluid collections.Patent basal cisterns. Empty sella turcica morphology. VISUALIZED ORBITS/SINUSES/MASTOIDS: Postoperative change of bilaterallenses, otherwise the orbits are unremarkable. The visualized paranasalsinuses and temporal bone structures are well-aerated. BONES/SOFT TISSUES: The calvarium and skull base are unremarkable. IMPRESSION: 1. Senescent changes and sequelae of chronic microangiopathy without acuteintracranial abnormality. Hilaria Armendariz MD RAD CT * (ABNORMAL) Lactate Panel, Venous POCT (09/01/2023 10:27 AM INFORMATION SERVICES MANAGER) Only the most recent of2 resultswithin the time period is included. Lactate, Whole Blood 1.27 0.50 - 2.00 mmol/L 09/01/2023 2:32 PM INFORMATION SERVICES MANAGER [facility] PO2, Venous 18(L) 30 - 50 mmHg 09/01/2023 2:32 PM INFORMATION SERVICES MANAGER [facility] Performing Location [facility]AB ED B 09/01/2023 2:32 PM INFORMATION SERVICES MANAGER [facility] Blood 09/01/2023 10:2 7 AM INFORMATION SERVICES MANAGER 09/01/2023 2:32 PM INFORMATION SERVICES MANAGER Nathan Wilson MD LAB_[address] * ECG 12-Lead STAT (09/01/2023 6:49 AM INFORMATION SERVICES MANAGER) Only the most recent of3 resultswithin the time period is included. Ventricular Rate 56 BPM [facility] Atrial Rate 56 BPM [facility] P-R Interval 196 ms [facility] QRS Duration 148 ms [facility] QT 506 ms [facility] QTc 488 ms [facility] P [place] 102 degrees [facility] R [place] 46 degrees [facility] T [place] -27 degrees [facility] 09/01/2023 6:49 AM INFORMATION SERVICES MANAGER Narrative [facility] - 09/01/2023 9:14 AM INFORMATION SERVICES MANAGER Poor data quality, interpretation may be adversely affected Sinus bradycardia Right bundle branch block T wave abnormality, consider lateral ischemia Abnormal ECG When compared with ECG of 01-SEP-2023 00:12, No significant change was found Confirmed by Charissa Marinelli ([id number]) on 09/01/2023 9:14:31 AM Procedure Note Charissa Marinelli MD - 09/01/2023 Poor data quality, interpretation may be adversely affected Sinus bradycardia Right bundle branch block T wave abnormality, consider lateral ischemia Abnormal ECG When compared with ECG of 01-SEP-2023 00:12, No significant change was found Confirmed by Charissa Marinelli ([id number]) on 09/01/2023 9:14:31 AM Amaya Driscoll MD EKG Performing Organization Address [facility] Co de Phone Number [facility] [address] [place] [address] * (ABNORMAL) Troponin I (09/01/2023 6:45 AM INFORMATION SERVICES MANAGER) Only the most recent of3 resultswithin the time period is included. Troponin I 0.08(H) 0.00 - 0.03 ng/mL 09/01/2023 7:44 AM INFORMATION SERVICES MANAGER [facility] Blood Venipuncture / Unknown 09/01/2023 6:45 AM INFORMATION SERVICES MANAGER 09/01/2023 7:07 AM INFORMATION SERVICES MANAGER Amaya Driscoll MD LAB_1 Performing Organization Address [facility] Co de Phone Number [address] * FERRITIN (09/01/2023 6:45 AM INFORMATION SERVICES MANAGER) Pathologist [facility] Ferritin 89 9 - 204 ng/mL 09/01/2023 2:27 PM INFORMATION SERVICES MANAGER [facility] Blood Venipuncture / Unknown 09/01/2023 6:45 AM INFORMATION SERVICES MANAGER 09/01/2023 7:07 AM INFORMATION SERVICES MANAGER Hilaria Armendariz MD LAB_1 Performing Organization Address [facility] Co de Phone Number [address] * Blood Culture (09/01/2023 6:25 AM INFORMATION SERVICES MANAGER) Only the most recent of4 resultswithin the time period is included. Blood Culture No Growth at 5 Days RH LAB ETEST METHOD 09/06/2023 8:01 AM CDT [facility] Blood (Arm, left) Venipuncture / Unknown 09/01/2023 6:25 AM INFORMATION SERVICES MANAGER 09/01/2023 6:30 AM INFORMATION SERVICES MANAGER Amaya Driscoll MD LAB_1 Performing Organization Address City/State/[facility] Co de Phone Number [facility] [address] [place] [address], [facility] * XR Chest 2 Views (09/01/2023 4:10 AM INFORMATION SERVICES MANAGER) Anatomical Region Laterality Modality Chest, Lung Computed Radiogr aphy 09/01/2023 4:10 AM INFORMATION SERVICES MANAGER Narrative 09/01/2023 4:24 AM INFORMATION SERVICES MANAGER EXAM: XR CHEST 2 VIEWS LOCATION: [facility] DATE: 09/01/2023 INDICATION: Cough, body aches, rule out pneumonia. Cough. COMPARISON: 08/26/2023. IMPRESSION: Sternotomy. Mild low lung volumes. Heart size and pulmonary vascularity upper limits of normal. Tortuous ectatic calcified thoracic aorta. No focal airspace consolidations. Diffuse interstitial prominence throughout the lungs appears similar to prior exam. Findings may represent chronic lung markings. Procedure Note Filemon Vaughan MD - 09/01/2023 EXAM: XR CHEST 2 VIEWS LOCATION: [facility] DATE: 09/01/2023 INDICATION: Cough, body aches, rule out pneumonia. Cough. COMPARISON: 08/26/2023. IMPRESSION: Sternotomy. Mild low lung volumes. Heart size and pulmonaryvascularity upper limits of normal. Tortuous ectatic calcified thoracicaorta. No focal airspace consolidations. Diffuse interstitial prominencethroughout the lungs appears similar to prior exam. Findings may representchronic lung markings. Amaya Driscoll MD RAD GD * Procalcitonin (09/01/2023 12:00 AM INFORMATION SERVICES MANAGER) Procalcitonin 0.06 <=0.24 ng/mL 09/01/2023 7:38 AM INFORMATION SERVICES MANAGER [facility] Blood Venipuncture / Unknown 09/01/2023 12:00 AM INFORMATION SERVICES MANAGER 09/01/2023 12:02 AM INFORMATION SERVICES MANAGER [facility] - 09/01/2023 7:38 AM INFORMATION SERVICES MANAGER Differential Diagnosis of Lower Respiratory Tract Infection <0.10: Indicates absence of bacterial infections. Use of antibiotics strongly discouraged. 0.10-0.24: Bacterial infection unlikely. Use of antibiotics is discouraged. 0.25-0.49: Bacterial infection possible. Antibiotic treatment is recommended. >= 0.50: Suggestive of the presence of bacterial infection. Antibiotic treatment is strongly recommended. Differential Diagnosis of Systemic Bacterial Infection <0.50: Systemic infection is not likely. Local bacterial infection is possible. Low risk for progression to severe systemic infection. 0.50-1.99: Systemic infection possible, but various conditions are also known to induce Procalcitonin. Moderate risk for progression to severe systemic infection. The patient should be closely monitored both clinically and by reassessing Procalcitonin levels within 6-24 hours. 2.0-9.99: Systemic infection is likely, unless other causes are known. High risk for progression to severe systemic infection. >= 10.00: Important systemic inflammatory response, almost exclusively due to severe bacterial sepsis or septic shock. High likelihood of severe sepsis or septic shock. Clinicans should use the PCT clinical results in conjunction with other laboratory findings and clinical signs and should interpret the PCT results in the context of the patient's clinical situation. Joselo Hearn MD LAB_1 Performing Organization Address City/State/[facility] Co de Phone Number [address] * Cortisol (09/01/2023 12:00 AM INFORMATION SERVICES MANAGER) Cortisol 12.2 2.9 - 19.4 mcg/dL 09/01/2023 7:11 AM [facility] Blood Venipuncture / Unknown 09/01/2023 12:00 AM INFORMATION SERVICES MANAGER 09/01/2023 12:02 AM INFORMATION SERVICES MANAGER [facility] 09/01/2023 7:11 AM INFORMATION SERVICES MANAGER Expected values AM (before 10am): 3.7-19.4 mcg/dL PM (after 5pm): 2.9-17.3 mcg/dL Joselo Hearn MD LAB_[address] * RSV RNA, Molecular Detection (08/31/2023 11:59 PM INFORMATION SERVICES MANAGER) Only the most recent of2 resultswithin the time period is included. [facility] RSV by PCR Not Detected Not Detected 09/01/2023 12:44 AM INFORMATION SERVICES MANAGER [facility] Swab (Source Required) (Nasopharyngeal swab) Non-blood Collection / Unknown 08/31/2023 11:59 PM INFORMATION SERVICES MANAGER 09/01/2023 12:01 AM INFORMATION SERVICES MANAGER [facility] 09/01/2023 12:44 AM INFORMATION SERVICES MANAGER Method: Qualitative real-time PCR assay to detect RSV Viral RNA. Jayde Lucio MD LAB_1 Performing Organization Address [facility] Co de Phone Number [address] * Influenza A and B by PCR (08/31/2023 11:59 PM INFORMATION SERVICES MANAGER) Only the most recent of2 resultswithin the time period is included. [facility] INFLUENZA A MOLECULAR Not Detected Not Detected 09/01/2023 12:44 AM INFORMATION SERVICES MANAGER [facility] INFLUENZA B MOLECULAR Not Detected Not Detected 09/01/2023 12:44 AM [facility] Swab (Source Required) (Nasopharyngeal swab) Non-blood Collection / Unknown 08/31/2023 11:59 PM INFORMATION SERVICES MANAGER 09/01/2023 12:01 AM INFORMATION SERVICES MANAGER [facility] - 09/01/2023 12:44 AM INFORMATION SERVICES MANAGER Methodology: ??Qualitative real-time PCR assay to detect the Influenza type A and type B viral RNA Jayde Lucio MD LAB_1 Performing Organization Address [facility]/ZIP Co de Phone Number [address] * 2019 Novel Coronavirus (COVID-19) (08/31/2023 11:59 PM INFORMATION SERVICES MANAGER) Only the most recent of2 resultswithin the time period is included. [facility] COVID-19 Interpretation Not Detected Not Detected 09/01/2023 12:44 AM INFORMATION SERVICES MANAGER [facility] Source Nasopharyngeal swab 09/01/2023 12:44 AM [facility] Swab (Source Required) (Nasopharyngeal swab) Non-blood Collection / Unknown 08/31/2023 11:59 PM INFORMATION SERVICES MANAGER 09/01/2023 12:01 AM INFORMATION SERVICES MANAGER [facility] - 09/01/2023 12:44 AM INFORMATION SERVICES MANAGER Test performed by real-time PCR. This test has been authorized by the FDA under an Emergency Use Authorization (EUA) for use by authorized laboratories. Jayde Lucio MD LAB_1 Performing Organization Address [facility]/ZIP Co de Phone Number [facility] [address] * INPATIENT TELEMETRY MONITORING (08/28/2023 11:44 PM INFORMATION SERVICES MANAGER) Only the most recent of9 resultswithin the time period is included. TELE P-R INTERVAL 0.18 [facility] TELE QRS DURATION 0.15 [facility] TELE R-R INTERVAL 1.02 [facility] TELE QT 0.50 [facility] TELE INTERPRETATION Sinus Gabo w/ IVCDs, Deion Thurman RN HR 57 MUSE [facility] 08/28/2023 11:4 4 PM INFORMATION SERVICES MANAGER [facility] - 08/28/2023 11:50 PM INFORMATION SERVICES MANAGER Sinus Gabo ??w/ IVCDennys, Deion Thurman RN HR 57 Interface Provider EKG Performing Organization Address [facility] Co de Phone Number [facility] [address] [place] [address] * (ABNORMAL) Lactate (08/28/2023 9:17 AM INFORMATION SERVICES MANAGER) Only the most recent of2 resultswithin the time period is included. Lactate 2.2(H) 0.5 - 2.0 mmol/L 08/28/2023 9:53 AM [facility] Blood Venipuncture / Unknown 08/28/2023 9:17 AM INFORMATION SERVICES MANAGER 08/28/2023 9:22 AM INFORMATION SERVICES MANAGER [facility] - 08/28/2023 9:53 AM INFORMATION SERVICES MANAGER Reference range for healthy individuals when sepsis is not suspected is 0.5-2.2 mmol/L Shannan Bender PA-C LAB_1 Performing Organization Address [facility] Co de Phone Number [address] * Antibody Screen (08/27/2023 5:09 AM INFORMATION SERVICES MANAGER) Antibody Screen Interpretation Negative 08/27/2023 6:05 AM INFORMATION SERVICES MANAGER [facility] Blood Venipuncture / Unknown 08/27/2023 5:09 AM INFORMATION SERVICES MANAGER 08/27/2023 5:12 AM INFORMATION SERVICES MANAGER Filemon Rachel MD LAB_1 Performing Organization Address [facility] Phone [facility] [address] [place] [address] * Blood Type (08/27/2023 5:09 AM INFORMATION SERVICES MANAGER) ABO O 08/27/2023 6:05 AM INFORMATION SERVICES MANAGER [facility] RH Positive 08/27/2023 6:05 AM INFORMATION SERVICES MANAGER [facility] Blood Venipuncture / Unknown 08/27/2023 5:09 AM INFORMATION SERVICES MANAGER 08/27/2023 5:12 AM INFORMATION SERVICES MANAGER Filemon Rachel MD LAB_1 Performing Organization Address [facility] Phone Number [facility] [address] [place] [address] * INR/Protime (08/27/2023 5:08 AM INFORMATION SERVICES MANAGER) Protime 13.5 11.8 - 14.6 Seconds 08/27/2023 5:28 AM INFORMATION SERVICES MANAGER [facility] INR 1.0 0.9 - 1.1 08/27/2023 5:28 AM INFORMATION SERVICES MANAGER [facility] Blood Venipuncture / Unknown 08/27/2023 5:08 AM INFORMATION SERVICES MANAGER 08/27/2023 5:12 AM INFORMATION SERVICES MANAGER Narrative [facility] - 08/27/2023 5:28 AM INFORMATION SERVICES MANAGER Therapeutic range determined by protocol established by anticoagulation provider. Filemon Rachel MD LAB_1 [address] [address], [facility] * CT Angio Chest And CT Abd Pelvis W IV Cont (08/26/2023 11:01 PM INFORMATION SERVICES MANAGER) Anatomical Region Laterality Modality Abdomen, Pelvis, Chest, Lung, Vascular Computed Tomography 08/26/2023 11:0 1 PM INFORMATION SERVICES MANAGER Narrative 08/26/2023 11:47 PM INFORMATION SERVICES MANAGER EXAM: CT ANGIO CHEST AND CT ABD PELVIS W IV CONT LOCATION: [facility] DATE: 08/26/2023 INDICATION: Left sided chest pain, LUQ pain, positive d-dimer, DISSECTION (AORTA) COMPARISON: None. TECHNIQUE: CT angiogram chest and routine CT abdomen pelvis with IV contrast. Arterial phase through the chest and venous phase through the abdomen and pelvis. 2D and 3D MIP reconstructions were preformed by the invasive cardiovascular technologist. Dose reduction techniques were used. CONTRAST: IOHEXOL 350 MG/ML IV SOLN 100 mL FINDINGS: ANGIOGRAM CHEST: Atherosclerotic aorta. Aorta is not densely opacified, nondiagnostic for dissection. The main pulmonary artery is prominent in size. No pulmonary emboli. LUNGS AND PLEURA: Respiratory motion. Basilar atelectasis. 4 mm right middle lobe nodule S5, 104. MEDIASTINUM/AXILLAE: No adenopathy or significant pericardial effusion. CORONARY ARTERY CALCIFICATION: Previous intervention. HEPATOBILIARY: Cholelithiasis. PANCREAS: Normal. SPLEEN: Normal. ADRENAL GLANDS: Normal. KIDNEYS/BLADDER: Small renal cysts. Subcentimeter renal hypodensities small for characterization. 5 mm right and 6 mm left renal calculi. Mild left hydronephrosis and left perinephric stranding. 7 mm calculus proximal left ureter. BOWEL: Normal caliber. LYMPH NODES: Normal. VASCULATURE: Atherosclerotic vascular calcification. PELVIC ORGANS: Normal. MUSCULOSKELETAL: Degenerative change osseous structures. IMPRESSION: 1. ??7 mm calculus proximal left ureter. Mild left hydronephrosis. 2. ??Bilateral renal calculi. 3. ??Cholelithiasis. 4. ??4 mm right middle lobe pulmonary nodule. REFERENCE: Guidelines for Management of Incidental Pulmonary Nodules Detected on CT Images: From the Fleischner Society 2017. Guidelines apply to incidental nodules in patients who are 35 years or older. Guidelines do not apply to lung cancer screening, patients with immunosuppression, or patients with known primary cancer. SINGLE NODULE Nodule size <6 mm Low-risk patients: No follow-up needed. High-risk patients: Optional follow-up at 12 months. Nodule size 6-8 mm Low-risk patients: Follow-up CT at 6-12 months, then consider CT at 18-24 months. High-risk patients: Follow-up CT at 6-12 months, then at 18-24 months if no change. Nodule size >8 mm Either low or high-risk patients: Consider CT, PET/CT, or tissue sampling at 3 months. Procedure Note Nalini Gregory MD - 08/26/2023 EXAM: CT ANGIO CHEST AND CT ABD PELVIS W IV CONT LOCATION: [facility] DATE: 08/26/2023 INDICATION: Left sided chest pain, LUQ pain, positive d-dimer, DISSECTION(AORTA) COMPARISON: None. TECHNIQUE: CT angiogram chest and routine CT abdomen pelvis with IVcontrast. Arterial phase through the chest and venous phase through theabdomen and pelvis. 2D and 3D MIP reconstructions were preformed by the CTtechnologist. Dose reduction techniques were used. CONTRAST: IOHEXOL 350 MG/ML IV SOLN 100 mL FINDINGS: ANGIOGRAM CHEST: Atherosclerotic aorta. Aorta is not densely opacified,nondiagnostic for dissection. The main pulmonary artery is prominent insize. No pulmonary emboli. LUNGS AND PLEURA: Respiratory motion. Basilar atelectasis. 4 mm rightmiddle lobe nodule S5, 104. MEDIASTINUM/AXILLAE: No adenopathy or significant pericardial effusion. CORONARY ARTERY CALCIFICATION: Previous intervention. HEPATOBILIARY: Cholelithiasis. PANCREAS: Normal. SPLEEN: Normal. ADRENAL GLANDS: Normal. KIDNEYS/BLADDER: Small renal cysts. Subcentimeter renal hypodensitiessmall for characterization. 5 mm right and 6 mm left renal calculi. Mildleft hydronephrosis and left perinephric stranding. 7 mm calculus proximalleft ureter. BOWEL: Normal caliber. LYMPH NODES: Normal. VASCULATURE: Atherosclerotic vascular calcification. PELVIC ORGANS: Normal. MUSCULOSKELETAL: Degenerative change osseous structures. IMPRESSION: 1. 7 mm calculus proximal left ureter. Mild left hydronephrosis. 2. Bilateral renal calculi. 3. Cholelithiasis. 4. 4 mm right middle lobe pulmonary nodule. REFERENCE: Guidelines for Management of Incidental Pulmonary Nodules Detected on CTImages: From the Fleischner Society 2017. Guidelines apply to incidental nodules in patients who are 35 years orolder. Guidelines do not apply to lung cancer screening, patients withimmunosuppression, or patients with known primary cancer. SINGLE NODULE Nodule size <6 mm Low-risk patients: No follow-up needed. High-risk patients: Optional follow-up at 12 months. Nodule size 6-8 mm Low-risk patients: Follow-up CT at 6-12 months, then consider CT at 18-24months. High-risk patients: Follow-up CT at 6-12 months, then at 18-24 months ifno change. Nodule size >8 mm Either low or high-risk patients: Consider CT, PET/CT, or tissue sampling at 3 months. Iris Ly PA-C RAD CT * (ABNORMAL) D Dimer, Quantitative (08/26/2023 8:54 PM INFORMATION SERVICES MANAGER) D Dimer, Quant 0.98(H) <=0.50 ug/mL FEU 08/26/2023 9:13 PM [facility] Blood Venipuncture / Unknown 08/26/2023 8:54 PM INFORMATION SERVICES MANAGER 08/26/2023 8:57 PM INFORMATION SERVICES MANAGER [facility] - 08/26/2023 9:13 PM INFORMATION SERVICES MANAGER A D-dimer level <=0.50 ug/mL FEU in a patient with a low clinical pretest probability for a 1st episode of DVT can rule out lower extremity DVT (rate of DVT in next 3 months < 2%). ?? For patients greater than 50 years of age, the application of age-adjusted cut- off values for D-Dimer may increase the specificity without significant effect on sensitivity. The results in this laboratory are reported as ug/mL FEU. The calculation for age adjusted cut off in ug/mL FEU = age in years x 0.01 ug/mL FEU. For example, the cut off for a 76 year old male is 76 x 0.01 ug/mL FEU = <=0.76 ug/mL FEU. Increased D-dimer is seen in thromboembolism, DIC, liver disease, renal disease, cardiac infarct and failure, cancer, , stroke, infection, recent surgery, hemorrhage and age > 70 years. D-dimer levels decrease with anticoagulation therapy and increasing clot age. Iris Ly PA-C LAB_1 Performing Organization Address City/[facility]/ZIP Co de Phone Number [address] [address], [facility] * XR Portable Chest 1 View (08/26/2023 7:54 PM INFORMATION SERVICES MANAGER) Anatomical Region Laterality Modality Chest, Lung Computed Radiogr aphy 08/26/2023 7:54 PM INFORMATION SERVICES MANAGER Narrative 08/26/2023 8:26 PM INFORMATION SERVICES MANAGER EXAM: XR PORTABLE CHEST 1 VIEW LOCATION: [facility] DATE: 08/26/2023 INDICATION: Cough. Left flank pain. COMPARISON: 05/30/2014. IMPRESSION: Mild opacity at the left lung base in the retrocardiac region may be related to atelectasis or infection. The lungs are otherwise clear. No pneumothorax. Sternotomy. Pulmonary vascularity is within normal limits. Aortic calcification. Procedure Note Filemon Gibbs MD - 08/26/2023 EXAM: XR PORTABLE CHEST 1 VIEW LOCATION: [facility] DATE: 08/26/2023 INDICATION: Cough. Left flank pain. COMPARISON: 05/30/2014. IMPRESSION: Mild opacity at the left lung base in the retrocardiac regionmay be related to atelectasis or infection. The lungs are otherwise clear.No pneumothorax. Sternotomy. Pulmonary vascularity is within normallimits. Aortic calcification. Iris Ly PA-C RAD PORTABLE * Blood Type second draw (08/26/2023 7:42 PM INFORMATION SERVICES MANAGER) ABO O 08/27/2023 6:05 AM INFORMATION SERVICES MANAGER [facility] RH Positive 08/27/2023 6:05 AM INFORMATION SERVICES MANAGER [facility] Blood Venipuncture / Unknown 08/26/2023 7:42 PM INFORMATION SERVICES MANAGER 08/27/2023 5:35 AM INFORMATION SERVICES MANAGER Cassie Barton MD LAB_1 [facility] [address] [place] [address], [facility] * (ABNORMAL) B-Type Natriuretic Peptide (08/26/2023 7:42 PM INFORMATION SERVICES MANAGER) B Type Natr. Peptide 249(H) <=99 pg/mL 08/26/2023 8:24 PM INFORMATION SERVICES MANAGER [facility] Blood Venipuncture / Unknown 08/26/2023 7:42 PM INFORMATION SERVICES MANAGER 08/26/2023 7:54 PM INFORMATION SERVICES MANAGER Iris Ly PA-C LAB_1 [facility] [address] [place] [address], [facility] from Last 3 Months Advance Directives * Full Code (Latest Code Status on File) Date Activated Date Inactivated Comments 09/29/2023 5:32 PM 09/30/2023 4:20 PM * Full Code Date Activated Date Inactivated Comments 09/27/2023 12:54 AM 09/29/2023 5:32 PM * Full Code Date Activated Date Inactivated Comments 09/01/2023 10:57 AM 09/01/2023 8:32 PM * Full Code Date Activated Date Inactivated Comments 08/27/2023 5:53 AM 08/29/2023 4:09 PM * Full Code Date Activated Date Inactivated Comments 08/27/2023 3:52 AM 08/27/2023 5:53 AM Care Teams Regional Operations Manager Relationship Specialty Start Date End Date No Primary/Referring, Phy PCP - General 08/26/23
--- OUTSIDE RECORDS SUMMARY | 2023-11-04 22:48 | XMS_ITS | Encounter Summary ---
Author Name Unknown Organization [facility] Address [address], [place] [address] Care Team Providers Care Hangar Attendant Name Role Phone No Primary/Referring, Phy Primary Care Provider Unavailable Reason for Visit * Auth/Cert (Routine) Specialty Diagnoses / Procedures Referred By Alfonso t Referred To Contact Diagnoses Renal stones Left flank pain Urinary tract infection with hematuria, site unspecified Left flank pain Urinary tract infection with hematuria, site unspecified Renal stones Referral ID Status Reason Start Date Expiration Date Visits Re quested Visits Authorized [id number] 1 1 Encounter Details Date Type Department Care Team (Late st Contact Info) Description 09/29/2023 6:32 PM CDT Anesthesia Event [facility] Operating Room [address] [place] [id number] Jr Zheng MD [address] [place] [address] Anesthesia Record Procedure Summary Procedure Name Responsible Anesthesiologist Anesthesia Start Time Anesthesia Stop Time Thulium LASER CYSTOSCOPIC REMOVAL URETERAL STONE WITH LEFT URETERAL STENT EXCHANGE, LEFT RETROGRADE PYELOGRAM, STONE BASKET EXTRACTION (Left) Jr Zheng MD 09/29/23 18309/29/231939 Events Date Time Event Comment 09/29/2023 183 An Start 1836 An Start Data 1840 An Induction 1840 MD/ Present 1845 An Intubation 1900 an gabbie now Timeout 1932 An Extubation Purposeful mov ement with spontaneous respirations and adequate air exchange. Suctioned and ETT removed. Transferred with oxygen to recovery. 1933 an stop data 1939 Care Handoff Note I discusse d with the receiving nurse and we: 1) Identified the patient, damian family member(s) or patient surrogate 2) Identified the responsible practitioner 3) Reviewed the pertinent medical history 4) Discussed the surgical/procedure course 5) Reviewed intra-op anesthesia management and issues during anesthesia 6) Set expectations for the post-procedure period 7) Allowed opportunity for questions and acknowledgement of understanding of report Electronically signed by Jimena Peraza APRN, CRNA 1939 An [facility] transferre d. Meds Name Total fentaNYL injection (aka SUBLIMAZE) 1 mL lidocaine 1% PF injection aka (XYLOCAINE ) 30 mg propofol 10 mg/mL for procedural sedatio n (aka diPRIvan) 120 mg rocuronium injection (aka ZEMURON) 30 mg phenylephrine-NaCl 0.9% 100 mcg/mL syrin ge (aka ROWAN-SYNEPHRINE) 100 mcg dexamethasone 4 mg/mL injection (aka DEC ADRON) 4 mg ondansetron injection (aka ZOFRAN) 4 mg sugammadex injection 200mg/ 2mL (aka TENA LISA) 150 mg lactated ringers infusion 450 mL * Agents Name O2 N2O Air Sevoflurane () * Blood No blood administrations on file. Lines, Drains, and Airways Type Details Placement Removal Peripheral IV Placement Date: 09/28/23; Placement Time: 0900; Orientation: Right; Removal Date: 10/14/23; Removal Time: 1415 09/28/23 0900 by Brea Muir 10/14/23 1415 by Manuela Penaloza ETT Placement Date: 09/29/23; Placement Time: 1846; Placed By: VALERI; Induction Type: Pre-O2, IV; Masking: Easy; ETT Type: ETT; Orientation: Right; Size (mm): 6.5; Depth Secured (cm): 20 cm (@ the lip); Cuffed: Cuffed; Cuff Volume: 6 mL; Intubation Method: DL; Cormack_Lehane Glottic Grade: Grade 1; Glottic View: Cords Open, Cords Clear; Blade: [place]; Blade Size: 2; Insertion attempts: 1; Difficulty: Easy, Atraumatic; Adjunct Equipment: Stylet; Placement Verification: BBSE, auscultation, Positive EtCO2, capnometry; Teeth and Lips Unchanged: Unchanged (edentulous); Emergence: Following commands, Opening eyes, Spontaneous respirations, Adequate air exchange; Suctioned: Oropharnyx; Removal Date: 09/29/23; Removal Time: 1932; Extubation By: VALERI; Transferred with Oxygen: Yes 09/29/231845 by Jimena Peraza APRN, CRNA 09/29/231932 by Jimena Peraza APRN, CRNA Incision/Surgical Site 09/29/23; 1907; #1; No; Vagina; 10/14/23; 1415 09/29/23 190 by Lisa Max RN 10/14/23 1415 by Ca, Discontinue documented in this encounter Social History Tobacco Use Types Packs/Day Years [...] place to sleep or slept in a half-way (including now)? No 09/27/2023 Sex and Gender Information Value Date Recorded Sex Assigned at Not on file Gender Identity Not on file Sexual Orientation Not on file documented as of this encounter Miscellaneous Notes * Anesthesia Postprocedure Evaluation - Jr Zheng MD - 09/29/2023 7:54 PM CDT [facility] Anesthesia Post-op Note Patient: Sendy Moses Post-Op Diagnosis: Pre-Op Diagnosis Codes: * Left ureteral stone [N20.1] Procedure Performed: Procedure(s): Left - Thulium LASER CYSTOSCOPIC REMOVAL URETERAL STONE WITH LEFT URETERAL STENT EXCHANGE, LEFT RETROGRADE PYELOGRAM, STONE BASKET EXTRACTION - Wound Class: 2 CLEAN-CONTAMINATED Anesthesia Type: General Post-op vital signs: Vitals Value Taken Time BP 139/72 09/29/231949 Temp 98.2 ??F (36.8 ??C) 09/29/231935 Pulse 60 09/29/231953 Resp 21 09/29/231953 SpO2 100 % 09/29/231953 Vitals shown include unfiled device data. Pain Score: Preferred Pain Scale: CPOT (Critical-Care Pain Observation Tool) (0- 10) Pain Rating: Rest: 4 (0-10) Pain Rating: Activity: 4 Post-op assessment: Patient location: PACU Airway Status: Patent Cardiovascular function: Satisfactory Hydration status: Satisfactory PONV: None Level of Consciousness: Awake Fully Participates Postop Assessment: Patient tolerated procedure well. Electronically signed by: Jr Zheng MD 09/29/2023 7:54 PM * Anesthesia Preprocedure Evaluation - Jr Zheng MD - 09/29/2023 6:32 PM CDT [facility] Anesthesia Pre-op Evaluation Procedure: Thulium LASER CYSTOSCOPIC REMOVAL URETERAL STONE WITH PLACEMENT URETERAL STENT, Left HPI: 78 y.o. old female. Pre-Op Diagnosis Codes: * Left ureteral stone [N20.1] No Known Allergies No past medical history on file. Patient Active Problem List Diagnosis Cataract, nuclear sclerotic senile, bilateral Chronic heart failure with preserved ejection fraction (HRC) Dyslipidemia (HRC) S/P CABG x 3 Severe mitral regurgitation (HRC) Dermatochalasis of both upper eyelids Coronary artery disease (HRC) Left ureteral stone Hydronephrosis of left kidney Complicated UTI (urinary tract infection) Essential hypertension (HRC) Hypotension Muscle pain Flank pain Pyuria No past surgical history on file. Outpatient Medications as of 09/29/2023 Medication Sig clopidogrel (PLAVIX) 75 MG tablet Take 1 Tablet (75 mg) by mouth daily. furosemide (LASIX) 20 MG tablet Take 1 Tablet (20 mg) by mouth daily. HOLD- Do not restart until Mais eating and drinking well gabapentin (NEURONTIN) 300 MG capsule Take 1 Capsule (300 mg) by mouth three times a day. lisinopril (ZESTRIL) 2.5 MG tablet Take 1 [...] Chest Pain. rosuvastatin (CRESTOR) 10 MG tablet Take 1 Tablet (10 mg) by mouth daily. Facility-Administered Medications as of 09/29/2023 Medication Dose Route Frequency acetaminophen (TYLENOL) tablet 650 mg 650 mg Oral Q6H PRN aspirin chewable tablet 81 mg 81 mg Oral 2000 benzocaine-menthol (Chloraseptic) lozenge 1 Lozenge 1 Lozenge Oral Q2H PRN senna (SENOKOT) tablet 2 Tablet 2 Tablet Oral BID PRN And polyethylene glycol (MIRALAX) oral powder 17 g 17 g Oral DAILY PRN And bisacodyl (DULCOLAX) rectal suppository 10 mg 10 mg Rectal DAILY PRN calcium carbonate (TUMS) chewable tablet 1,000 mg 1,000 mg Oral Q4H PRN ceFAZolin (ANCEF) 2 g in sodium chloride 0.9 % 50 mL IVPB ADS 2 g Intravenous Once (Non-Scheduled) cefTRIAXone (ROCEPHIN) 2 g in sodium chloride 0.9 % 100 mL IVPB 2 g Intravenous Q24H (NS) [COMPLETED] cefTRIAXone (ROCEPHIN) injection 2 g 2 g Intravenous Once [Held by provider in Manage Orders] clopidogrel (PLAVIX) tablet 75 mg 75 mg Oral Daily cyanocobalamin (VITAMIN B12) tablet 1,000 mcg 1,000 mcg Oral Daily glucose (GLUTOSE) 40 % oral gel 15 g of glucose 15 g of glucose Oral Q15MIN PRN Or dextrose (D50) injection 25 g 25 g Intravenous Q15MIN PRN Or glucagon rDNA (diagnostic) (GLUCAGEN) injection 1 mg 1 mg Intramuscular Q15MIN PRN ferrous sulfate EC tablet 325 mg 325 mg Oral BID with meals gabapentin (NEURONTIN) capsule 300 mg 300 mg Oral TID [] HYDROmorphone (DILAUDID) injection 0.2 mg 0.2 mg Intravenous Q4H PRN [COMPLETED] HYDROmorphone (DILAUDID) injection 0.5 mg 0.5 mg Intravenous Once [COMPLETED] iohexol (OMNIPAQUE 350) 350 MG/ML injection 100 mL 100 mL Intravenous Once iohexol (OMNIPAQUE 350) 350 MG/ML injection ONCE PRN lactated ringers infusion Intravenous Continuous lactated ringers infusion Intravenous Continuous lidocaine PF (XYLOCAINE) 1 % injection 1 mL 1 mL Intradermal Pre-Procedure lubricant (SURGILUBE/KY JELLY) gel ONCE PRN melatonin tablet 6 mg 6 mg Oral At bedtime PRN metoprolol succinate (TOPROL XL) extended release tablet 12.5 mg 12.5 mg Oral Daily [COMPLETED] ondansetron (ZOFRAN) injection 4 mg 4 mg Intravenous Once oxyBUTYnin (DITROpan) tablet 2.5 mg 2.5 mg Oral BID PRN rosuvastatin (CRESTOR) tablet 10 mg 10 mg Oral Daily sennosides-docusate sodium (SENOKOT S) 8.6-50 MG per tablet 1 Tablet 1 Tablet Oral BID [COMPLETED] sodium chloride 0.9% bolus 1,000 mL 1,000 mL Intravenous Once Labs: Lab Results Component Value Date/Time SODIUM 140 09/28/2023 07:33 AM K 4.0 09/28/2023 07:33 AM CHLORIDE 108 09/28/2023 07:33 AM BUN 10 09/28/2023 07:33 AM CREATININE 0.72 09/28/2023 07:33 AM GLUCOSE 97 09/28/2023 07:33 AM Lab Results Component Value Date/Time WBC 4.2 09/27/2023 07:17 AM HGB 9.9 (L) 09/27/2023 07:17 AM HCT 33.4 (L) 09/27/2023 07:17 AM PLTS 167 09/27/2023 07:17 AM INR (no units) Date Value 08/27/2023 1.0 Blood Bank: ABO (no units) Date Value 08/27/2023 O Antibody Screen Interpretation (no units) Date Value 08/27/2023 Negative EKG: Date of last EK09/01/23 ECG 12-Lead STAT Result Value Ref Range Ventricular Rate 56 BPM Atrial Rate 56 BPM P-R Interval 196 ms QRS Duration 148 ms QT 506 ms QTc 488 ms P Bernie 102 degrees R Bernie 46 degrees T Bernie -27 degrees Physical Exam: BP 111/62 (BP Cuff Size: Regular) Pulse (!) 57 Temp 97.9 ??F (36.6 ??C) (Oral) Resp 19 Ht 4' 3 (1.295 m) Wt 59.7 kg (131 lb 11.2 oz) SpO2 95% BMI 35.60 kg/m?? Assessment/Plan: Review of Systems Patient does not have GERD. Patient is not a current smoker. The patient denies alcohol use. Patient denies any recent URI. History of PONV: No. History of motion sickness: No. Patient denies any personal or family history of anesthesia complications. NPO Status: Acceptable. Exam Mental Status: Confused. Mallampati score: II (Two). Mouth opening: Normal Thyromental Distance: > 3 finger breadths and Normal Neck Extension: Full Neck Circumference > 40 cm?: No Current airway assessment:Normal Dentition: Edentulous. Cardiac Exam: Regular rate and rhythm. Assessment ASA Status: 3 Emergent. Plan Anesthesia type: General and ETT Induction: Intravenous and Propofol Maintenance: TIVA PONV Risk Score Adult: 2 PONV Prophylaxis (planned): Ondansetron and Decadron Anesthetic plan, risks, benefits and alternatives discussed with the patient who agrees to the anesthesia treatment plan. H&P Reviewed and Patient examined, no change observed IV access Antibiotics per surgery Electronically signed by: Jr Zheng MD 09/29/2023 6:32 PM documented in this encounter Plan of Treatment Not on file documented as of this encounter Visit Diagnoses Not on filedocumented in this encounter Administered Medications Inactive Administered Medications - up to 3 most recent administrations Medication Order MAR Action Action Date Dose Rate Site dexAMETHasone (DECADRON) injection Intravenous, Starting on Wed09/29/23 at 1841, Until Wed09/29/23 at 1940 Given 09/29/2023 6:57 PM CDT 4 mg fentaNYL (SUBLIMAZE) injection Intravenous, Starting on Wed09/29/23 at 1903, Until Wed09/29/23 at 1940 Given 09/29/2023 7:08 PM CDT 0.5 mL Given 09/29/2023 7:03 PM CDT 0.5 mL lactated ringers infusion Intravenous, at 30 mL/hr, CONTINUOUS, Starting on Wed09/29/23 at 1800, Pre-op Started 09/29/2023 6:32 PM CDT lidocaine PF (XYLOCAINE) 1 % injection Intravenous, Starting on Wed09/29/23 at 1841 Given 09/29/2023 6:41 PM CDT 30 mg ondansetron (ZOFRAN) injection Intravenous, Starting on Wed09/29/23 at 1921, Until Wed09/29/23 at 1939 Given 09/29/2023 7:21 PM CDT 4 mg phenylephrine-NaCl 0.9% (ROWAN-SYNEPHRINE) injection Intravenous, Starting on Wed09/29/23 at 1859, Until Wed09/29/23 at 194 Given 09/29/2023 6:59 PM CDT 100 mcg propofol (DIPRIVAN) 10 mg/mL injection Intravenous, Starting on Wed09/29/23 at 1841, Until Wed09/29/23 at 194 Given 09/29/2023 7:08 PM CDT 20 mg Given 09/29/2023 6:41 PM CDT 100 mg rocuronium (ZEMURON) injection Intravenous, Starting on Wed09/29/23 at 1841, Until Wed09/29/23 at 194 Given 09/29/2023 6:41 PM CDT 30 mg sugammadex (BRIDION) injection Intravenous, Starting on Wed09/29/23 at 1923, Until Wed09/29/23 at 194 Given 09/29/2023 7:23 PM CDT 150 mg documented in this encounter Care Teams Hangar Attendant Relationship Specialty Start Date End Date No Primary/Referring, Phy PCP - General 08/26/23 documented as of this encounter
--- OUTSIDE RECORDS SUMMARY | 2023-11-04 22:48 | XMS_ITS | Encounter Summary ---
Author Name Unknown Organization [facility] Address [address], [place] [address] Care Team Providers Care Game And Fish Protector Name Role Phone No Primary/Referring, Phy Primary Care Provider Unavailable Reason for Visit * Auth/Cert (Routine) Specialty Diagnoses / Procedures Referred By Alfonso killian Referred To Contact Diagnoses Renal stones Left flank pain Urinary tract infection with hematuria, site unspecified Left flank pain Urinary tract infection with hematuria, site unspecified Renal stones Referral ID Status Reason Start Date Expiration Date Visits Re quested Visits Authorized [id number] 1 1 Encounter Details Date Type Department Care Team (Late st Contact Info) Description 09/29/2023 5:30 PM CDT Ancillary Procedure [facility] [address] [place] [id number] Social History Tobacco Use Types Packs/Day Years [...] place to sleep or slept in a long-term (including now)? No 09/27/2023 Sex and Gender Information Value Date Recorded Sex Assigned at Not on file Gender Identity Not on file Sexual Orientation Not on file documented as of this encounter Plan of Treatment Not on file documented as of this encounter Procedures Procedure Name Priority Date/Time Associated Diagnosis Comments XR C-ARM 1-1.5 HOURS Routine 09/29/2023 7:28 PM CDT documented in this encounter Results * XR C-Arm 1-1.5 Hours (09/29/2023 7:28 PM CDT) Anatomical Region Laterality Modality X-Ray Angiograph y Narrative 09/29/2023 7:29 PM CDT Fluoroscopy provided by a imaging technologist. Exact fluoroscopy time is documented in end of exam information in EPIC Simran Kunz LABEL PRESS OPERATOR, COMBINE DRIVER RAD GD documented in this encounter Visit Diagnoses Not on filedocumented in this encounter Care Teams Game And Fish Protector Relationship Specialty Start Date End Date No Primary/Referring, Phy PCP - General 08/26/23 documented as of this encounter
--- OUTSIDE RECORDS SUMMARY | 2023-11-04 22:49 | XMS_ITS | Encounter Summary ---
Author Name Unknown Organization [facility] Address [address] [place] [address] Care Team Providers Care Thread Trimmer Name Role Phone No Primary/Referring, Phy Primary Care Provider Unavailable Reason for Visit * Procedure/Equipment (Routine) - Incomplete Specialty Diagnoses / Procedures Referred By Alfonso t Referred To Contact Procedures CT Head WO IV Cont Hilaria Armendariz MD [address] [place] [id number] Referral ID Status Reason Start Date Expiration Date V isits Requested Visits Authorized [id number] Incomplete 09/01/2023 11/30/2024 1 1 Encounter Details Date Type Department Care Team (Late st Contact Info) Description 09/01/2023 11:10 AM COW TENDER Ancillary [facility] [address] [place] [id number] Social History Tobacco Use Types Packs/Day Years Used Date Smoking Tobacco: Never Assessed Sex and Gender Information Value Date Recorded Sex Assigned at Not on file Gender Identity Not on file Sexual Orientation Not on file documented as of this encounter Plan of Treatment Not on file documented as of this encounter Procedures Procedure Name Priority Date/Time Associated Diagnosis Comments CT HEAD WO IV CONT STAT 09/01/2023 11 :21 AM COW TENDER documented in this encounter Results * CT Head WO IV Cont (09/01/2023 11:21 AM COW TENDER) Anatomical Region Laterality Modality Head Computed Tomogra phy 09/01/2023 11:2 1 AM COW TENDER Narrative 09/01/2023 11:33 AM COW TENDER EXAM: CT HEAD WO IV CONT LOCATION: [facility] DATE/TIME: 09/01/2023 11:21 AM COW TENDER INDICATION: Lower extremity numbness COMPARISON: None available [...] EXAM: CT HEAD WO IV CONT LOCATION: [facility] DATE/TIME: 09/01/2023 11:21 AM COW TENDER INDICATION: Lower extremity numbness COMPARISON: None available [...] acuteintracranial abnormality. Hilaria Armendariz MD RAD CT documented in this encounter Visit Diagnoses Not on filedocumented in this encounter Care Teams Thread Trimmer Relationship Specialty Start Date End Date No Primary/Referring, Phy PCP - General 08/26/23 documented as of this encounter
--- OUTSIDE RECORDS SUMMARY | 2023-11-04 22:49 | XMS_ITS | Encounter Summary ---
Author Name Unknown Organization [facility] Address [address] [place] [address] Care Team Providers Care Cooker Syrup Name Role Phone No Primary/Referring, Phy Primary Care Provider Unavailable Reason for Visit * Reason Comments Future Appointments Encounter Details Date Type Department Care Team (Late st Contact Info) Description 09/14/2023 Telephone [facility] [address] [place] [address] Unknown, Physician [address] [place] [address] Future Appointments Social History Tobacco Use Types Packs/Day Years Used Date Smoking Tobacco: Never Assessed Sex and Gender Information Value Date Recorded Sex Assigned at Not on file Gender Identity Not on file Sexual Orientation Not on file documented as of this encounter Nursing Notes * Marcia Villafana - 09/14/2023 12:21 PM CDT Contacted and scheduled. Marcia Villafana 09/14/2023, 12:21 PM * Gloria Ortega RN - 09/14/2023 11:03 AM CDT Pt doesn't need to be seen prior to surgery. She just needs a post op scheduled one week after surgery for stent pull. Ok to use urgent slot. Thanks! * Jenna Boston - 09/14/2023 10:33 AM CDT Appointments - Same Day/Next Day Is this a symptom? No Patient would like appointment with: [facility] If requested clinician is unavailable, is it okay to be seen by another clinician? Yes Patient requesting appointment for: Wants/Needs to be seen within: 1 day(s) Additional comments: Is it okay to leave detailed message on your voicemail? Yes documented in this encounter Plan of Treatment Not on file documented as of this encounter Visit Diagnoses Not on filedocumented in this encounter Care Teams Cooker Syrup Relationship Specialty Start Date End Date No Primary/Referring, Phy PCP - General 08/26/23 documented as of this encounter
--- OUTSIDE RECORDS SUMMARY | 2023-11-04 22:49 | XMS_ITS | Encounter Summary ---
Author Name Unknown Organization [facility] Address [address] [address] Care Team Providers Care Measurement Psychologist Name Role Phone No Primary/Referring, Phy Primary Care Provider Unavailable Reason for Visit * Procedure/Equipment (Routine) - Incomplete Specialty Diagnoses / Procedures Referred By Alfonso t Referred To Contact Procedures XR Chest 2 Views Amaya Driscoll MD [address] [place] [id number] Referral ID Status Reason Start Date Expiration Date V isits Requested Visits Authorized [id number] Incomplete 09/01/2023 11/30/2024 1 1 Encounter Details Date Type Department Care Team (Late st Contact Info) Description 09/01/2023 3:40 AM MAJOR CASE DETECTIVE Ancillary Procedure [facility] [address] [place] [id number] Social History Tobacco Use Types Packs/Day Years Used Date Smoking Tobacco: Never Assessed Sex and Gender Information Value Date Recorded Sex Assigned at Not on file Gender Identity Not on file Sexual Orientation Not on file documented as of this encounter Plan of Treatment Not on file documented as of this encounter Procedures Procedure Name Priority Date/Time Associated Diagnosis Comments XR CHEST 2 VIEWS STAT 09/01/2023 4:10 AM MAJOR CASE DETECTIVE documented in this encounter Results * XR Chest 2 Views (09/01/2023 4:10 AM MAJOR CASE DETECTIVE) Anatomical Region Laterality Modality Chest, Lung Computed Radiogr aphy 09/01/2023 4:10 AM MAJOR CASE DETECTIVE Narrative 09/01/2023 4:24 AM MAJOR CASE DETECTIVE EXAM: XR CHEST 2 VIEWS LOCATION: [facility] DATE: 09/01/2023 INDICATION: Cough, body aches, rule [...] 09/01/2023 EXAM: XR CHEST 2 VIEWS LOCATION: [facility] DATE: 09/01/2023 INDICATION: Cough, body aches, rule out pneumonia. Cough. COMPARISON: 08/26/2023. IMPRESSION: Sternotomy. Mild low lung volumes. Heart size and pulmonaryvascularity upper limits of normal. Tortuous ectatic calcified thoracicaorta. No focal airspace consolidations. Diffuse interstitial prominencethroughout the lungs appears similar to prior exam. Findings may representchronic lung markings. Amaya Driscoll MD [facility] documented in this encounter Visit Diagnoses Not on filedocumented in this encounter Care Teams Measurement Psychologist Relationship Specialty Start Date End Date No Primary/Referring, Phy PCP - General 08/26/23 documented as of this encounter
--- OUTSIDE RECORDS SUMMARY | 2023-11-04 22:49 | XMS_ITS | Encounter Summary ---
Author Name Unknown Organization [facility] Address [address] [address] Care Team Providers Care Regulatory Compliance Officer Name Role Phone No Primary/Referring, Phy Primary [...] Expiration Date Visits Re quested Visits Authorized [id number] 1 1 Encounter Details Date Type Department Care Team (Late st Contact Info) Description 09/26/2023 8:00 PM CDT Ancillary Procedure [facility] [address] [id number] Social History Tobacco Use Types Packs/Day Years [...] place to sleep or slept in a [facility] (including now)? No 09/27/2023 Sex and Gender Information Value Date Recorded Sex Assigned at Not on file Gender Identity Not on file Sexual Orientation Not on file documented as of this encounter Plan of Treatment Not on file documented as of this encounter Procedures Procedure Name Priority Date/Time Associated Diagnosis Comments CT ABD PELVIS W IV CONT STAT 09/26/2023 10:40 PM CDT documented in this encounter Visit Diagnoses Not on filedocumented in this encounter Administered Medications Inactive Administered Medications - up to 3 most recent administrations Medication Order MAR Action Action Date Dose Rate Site iohexol (OMNIPAQUE 350) 350 MG/ML injection 100 mL 100 mL, Intravenous, ONCE, On 09/26/23 at 2300, For 1 dose Given 09/26/2023 10:41 PM CDT 100 mL documented in this encounter Care Teams Regulatory Compliance Officer Relationship Specialty Start Date End Date No Primary/Referring, Phy PCP - General 08/26/23 documented as of this encounter
--- OUTSIDE RECORDS SUMMARY | 2023-11-04 22:49 | XMS_ITS | Encounter Summary ---
Author Name Unknown Organization [facility] Address [address], [place] [address] Care Team Providers Care Follow Up Clerk Name Role Phone No Primary/Referring, Phy Primary Care Provider Unavailable Reason for Visit * Reason Comments Abdominal Pain * Auth/Cert (Routine) Specialty Diagnoses / Procedures Referred By Alfonso killian Referred To Contact Diagnoses Renal stones Left flank pain Urinary tract infection with hematuria, site unspecified Left flank pain Urinary tract infection with hematuria, site unspecified Renal stones Referral ID Status Reason Start Date Expiration Date Visits Re quested Visits Authorized [id number] 1 1 Encounter Details Date Type Department Care Team (Late st Contact Info) Description 09/29/2023 5:45 PM CDT - 09/29/2023 7:15 PM CDT Surgery Operating Room [address] [place] [id number] Jose Gee MD [address] [place] [address] [id number] Thulium LASER CYSTOSCOPIC REMOVAL URETERAL STONE WITH LEFT URETERAL STENT EXCHANGE, LEFT RETROGRADE PYELOGRAM, STONE BASKET EXTRACTION Social History Tobacco Use Types Packs/Day Years [...] place to sleep or slept in a fci (including now)? No 09/27/2023 Sex and Gender Information Value Date Recorded Sex Assigned at Not on file Gender Identity Not on file Sexual Orientation Not on file documented as of this encounter Last Filed Vital Signs Vital Sign Reading Time Taken Comments Blood Pressure 116/68 09/29/2023 6:21 PM CDT Pulse 57 09/29/2023 6:21 PM CDT Temperature 36.6 ??C (97.9 ??F) 09/29/2023 3:49 PM CD T Respiratory Rate 19 09/29/2023 6:21 PM CDT Oxygen Saturation 95% 09/29/2023 6:21 PM CDT Inhaled Oxygen Concentration - - Weight 59.7 kg (131 lb 11.2 oz) 024 12:56 AM CDT Height 129.5 cm (4' 3) 09/27/2023 12:5 6 AM CDT Body Mass Index 35.6 09/27/2023 12:56 AM CDT documented in this encounter Discharge Summaries * Simran Kunz, SHAYNE, CASH PERSON - 09/30/2023 11:54 AM CDT [facility] Medicine Discharge Summary Patient ID: Pilar Messina [id number] y.o. 1945 Admit date: 09/26/2023 Discharge [...] Her son by the bedsideinterpreting, declines professional supervisor assembly. Reports pain is similar to prior ureteral colic, not resolved completely since her discharge. She was supposed to follow with urology 2-4 weeks after stent was placed but this has not happened yet. She reports her pain was worse over the last 1 week so they went to outside hospital at [place] and she was prescribed oral antibiotics and [...] 04 at 10 am. - Discussed with ong supervisor assembly discharge instructions and with family Acute on [...] Your Medications These medications were sent to [facility] [address] [place] [id number] Hours: Open 24x7 acetaminophen 325 MG tablet [...] [facility] PA-[facility] [id number] Significant Diagnostic Studies (imaging, labs, micro, etc), [...] 35 minutes including, but not limited to, abs-[id number]-face time spent reviewing records, counseling, and coordination of care. Simran Kunz APRN, RICARDO [facility] Medicine documented in this encounter Discharge [...] and exam is facilitated by the professional UShealthrecord supervisor assembly, via iPad Language Line, to assist in [...] CABG 2009, s/p CRYSTAL x4, 10/2022: Hold DYE STAND LOADER Plavix for upcoming procedure, continue ASA and [...] Status/Goals of Care: Full Simran Kunz APRN, RICARDO Hospitalist, [facility] * Antonina Potts PA-C - [...] with any questions. Antonina Potts PA-C [facility] 09/29/23 8:05 AM * Millie Morales [...] in chart. Millie Morales PA-C * Simran Kunz, REAL PROPERTY APPRAISER, CASH PERSON - 09/28/2023 12:58 PM CDT Images from [...] Issues CAD s/p CABG 2009, s/p CRYSTAL x, 10/2022: Hold DYE STAND LOADER Plavix for upcoming procedure, continue ASA and [...] Care: Full Simran Kunz APRN, CNP Hospitalist, [facility] * Gordon Lama APRN, CNP [...] CABG 2009, s/p CRYSTAL x4, 10/2022: Hold DYE STAND LOADER Plavix for upcoming procedure, continue ASA and [...] Status/Goals of Care: Full Gordon Lama APRN, DNP Hospitalist, [facility] Pager: [phone] documented in this encounter Procedure Notes * Jose Gee MD - 09/30/2023 12:00 AM CDT NAME: PILAR MESSINA CSN: [id number] OPERATIVE REPORT DATE OF SURGERY: 09/29/2023 : 1945 SURGEON: JOSE GEE MD PREOPERATIVE DIAGNOSES: 1. Previous stenting for a left obstructing ureteral stone. 2. Recent admission for sepsis and urinary tract infection. POSTOPERATIVE DIAGNOSES: 1. Previous stenting for a left obstructing ureteral stone. 2. Recent admission for sepsis and urinary tract infection. OPERATION PERFORMED: Left ureteroscopy with laser lithotripsy and stent replacement. STUDENT ACTIVITIES DIRECTOR: None. ANESTHESIA: General endotracheal. ESTIMATED BLOOD LOSS: [...] case was begun by inserting a 22- Greenlandic rigid cystoscope into the bladder under direct [...] in around 1 week for stent removal. MD ALEKSEY TANNER/CHRISTIES /[id number] documented in this encounter Consult Notes * [...] but this was not performed due to material scheduler did not have a phone number for the patient/son. She presented to [facility] yesterday for evaluation of left abdominal/flank pain since her last discharge. Her pain had worsened last week and she was evaluated at [facility] and prescribed antibioticsand referred to [facility], but transfer request was [...] tablet 81 mg 81 mg Oral 2000 Filemon Rachel MD benzocaine-menthol (Chloraseptic) lozenge 1 Lozenge 1 Lozenge Oral Q2H PRN Filemon Rachel MD calcium carbonate (TUMS) chewable tablet 1,000 mg 1,000 mg Oral Q4H PRN Filemon Rachel MD [START ON 09/28/2023] cefTRIAXone (ROCEPHIN) 2 g in sodium chloride 0.9 % 100 mL IVPB 2 g [id number] (NS) Filemon Rachel MD [Held by provider [...] Resource Strain: High Risk (06/28/2021) Received from [facility] Financial Resource Strain Difficulty of Paying [...] CT ABD PELVIS W IV CONT LOCATION: [facility] DATE: 09/26/2023 INDICATION: Left-sided abdominal pain, [...] and exam is facilitated by the professional [facility] supervisor assembly,to assist in providing culturally sensitive care. The remaining interpretation provided by family. Millie Morales PA-C 09/27/2023, 7:48 AM documented in this encounter OR Notes * H&P - Filemon Rachel MD - 09/26/2023 11:58 PM CDT Images from the original note were not included. [facility] Medicine History & Physical Patient name: Pilar Messina : 1945 Date of Admission: 09/26/2023 7:33 PM Date of Service: 09/27/2023 Attending/Staff: Filemon Rachel MD Manager Mobile Used: Her son interpreting by the renita arias professional supervisor assembly. Chief Complaint Abdminla pain History of Present Illness 78 y.o. female with PMH of hypertension, CAD, obstructing left ureteral stone with hydronephrosis s/p ureteral stent on 08/27/2023 presents with left side abdominal/flank pain. Her son by the bedsidesmileytingrenita professional supervisor assembly. Reports pain is similar to prior ureteral colic, not resolved completely since her discharge. She was supposed to follow with urology 2-4 weeks after stent was placed but this has not happened yet. She reports her pain was worse over the last 1 week so they went to outside hospital at [place] and she was prescribed oral antibiotics and referred to [facility]. Reports associated dysuria but [...] Resource Strain: High Risk (06/28/2021) Received from [facility] Financial Resource Strain Difficulty of Paying [...] 138/61 -- -- 65 16 96 % 09/26/231917 128/77 97.3 ??F (36.3 ??C) Oral 75 [...] results for input(s): PH, PHV, PHCAP, PCO2, UDC9MDR, PCO2V, ZVT6XSS, PO2, PO2ART, PO2V, PO2CAP in the last [...] Keep NPO after midnight # Hypertension Continue DYE STAND LOADER metoprolol # CAD s/p CABG 2009, s/p CRYSTAL x4, 10/2022 Hold DYE STAND LOADER Plavix, continue ASA and Crestor # Chronic LLE pain Continue DYE STAND LOADER gabapentin # History of HFpEF Not in exacerbation, continue holding Lasix( on hold since last discharge) FEN: NPO, IV LR at 75 mL per/hr PPx: SCDs Lines/Catheters: PIV Level of Care: General care Code Status/Goals of Care: Full code This note may contain text created using speech-recognition software and may contain unintended word substitutions. Filemon Rachel MD [facility] Medicine, [facility] Pager: [phone] documented in this encounter ED Notes * Jimena Delcid RN - 09/27/2023 12:40 AM CDT Patient transported to unit via transport aid * Grey Espinosa PA-C - 09/26/2023 8:07 PM CDT [facility] Emergency Medicine Visit Note Chief Complaint: Abdominal Pain HPI Pilar Messina is a 78 y.o. female that presents to the ED for evaluation of abdominal pain. Patient is here with her son Patricia who serves as [facility] supervisor assembly. Patient had a ureteral stent placed in July. She was supposed to have 2 week follow up, but this never happened. Over the last week, patient has been having increased pain, pain with urination, and pain with eating. Patient was recently admitted to [facility] for fluids, and antibiotics. Patient denies any nausea, vomiting, chest pain, fevers, or constipation. Patient has been trying to use Ty lenol for pain, and was prescribed antibiotics, she has not sure what type. Of note, patient does endorsed shortness of breath in the context of pain. Triage Vitals [09/26/23 1918] Temp 97.3 ??F (36.3 ??C) Temp src [...] appointment never happened. Patient did present to [facility], where a transfer request was initiated, but never completed on 09/24/2023. Today, patient's symptoms concerning for pyelonephritis. Can not rule out other abdominal pathology. We will plan to get labs, treat patient's pain with Dilaudid, start patient on fluids, and get CT scan. See continued workup below. Grey Espinosa PA-C ED Course as of 09/27/23 0021 Sun Sep 26, [id number] ATTENDING: I personally saw the patient, performed damian elements of the visit, and supervised patient care with the de icer installer. [KG] 2312 CT Abd Pelvis W IV [...] Function Panel)(!) LFTs within normal limits. [TJ] 232 Basic Metabolic Panel(!) Normal basic metabolic panel, no BETTY. [TJ] 232 Complete Blood Count no Diff(!) CBC without evidence of leukocytosis, reassuring for systemic infection. [TJ] 2349 Hospital medicine team paged for admission. [TJ] WedSep 27, 2023 0021 Patient is accepted for [...] 3.5 - 10.5 x10(9)/L 09/30/2023 7:40 AM T [facility] RBC 4.33 3.90 - 5.03 x10(12)/L 09/30/2023 7:40 AM [facility] Hemoglobin 11.1(L) 12.0 - 15.5 g/dL 09/30/2023 7:40 AM [facility] HCT 36.2 34.9 - 44.5 % 09/30/2023 7:40 AM [facility] MCV 83.6 80.0 - 100.0 fL 09/30/2023 7:40 AM [facility] MCH 25.6(L) 27.6 - 33.3 pg 09/30/2023 7:40 AM [facility] MCHC 30.7(L) 31.5 - 35.2 g/dL 09/30/2023 7:40 AM [facility] RDW 14.9 11.9 - 15.5 % 09/30/2023 7:40 AM [facility] Platelets 200 150 - 450 x10(9)/L 09/30/2023 7:40 AM [facility] Automated NRBC 0 <=0 /100 WBC 09/30/2023 7:40 AM [facility] Blood Venipuncture / Unknown 09/30/2023 7:24 AM CDT 09/30/2023 7:33 AM CDT Simran Kunz REAL PROPERTY APPRAISER, CASH PERSON LAB_[address] * (ABNORMAL) Basic Metabolic Panel (09/30/2023 7:24 AM CDT) Sodium 140 136 - 145 mmol/L 09/30/2023 8:01 AM [facility] Potassium 4.1 3.5 - 5.1 mmol/L 09/30/2023 8:01 AM [facility] Chloride 106 98 - 109 mmol/L 09/30/2023 8:01 AM [facility] CO2 22 20 - 29 mmol/L 09/30/2023 8:01 AM [facility] Anion Gap 12 7 - 16 mmol/L 09/30/2023 8:01 AM [facility] Calcium 9.2 8.4 - 10.4 mg/dL 09/30/2023 8:01 AM [facility] BUN 11 7 - 26 mg/dL 09/30/2023 8:01 AM [facility] Creatinine 0.71 0.55 - 1.02 mg/dL 09/30/2023 8:01 AM [facility] Glucose 119(H) 70 - 100 mg/dL 09/30/2023 8:01 AM [facility] Comment:The given reference range is for the fasting state. Non-fasting reference range for glucose is 70 - 180 mg/dL. GFR, Estimated >60 >60 mL/min/1.7 3m2 09/30/2023 8:01 AM [facility] Blood Venipuncture / Unknown 09/30/2023 7:24 AM CDT 09/30/2023 7:33 AM CDT Simran Kunz APRN, CASH PERSON LAB_1 [place] [address], [facility] * Glucose, Whole Blood POCT (09/29/2023 7:39 PM CDT) Glucose, Whole Blood 109 70 - 180 mg/dL 09/29/2023 7:41 PM [facility] Performing Location [facility] PACU 09/29/2023 7:41 PM [facility] Blood 09/29/2023 7:39 PM CDT 09/29/2023 7:41 PM CDT Simran Kunz APRN, CNP LAB_1 Performing Organization Address [facility] Co de Phone Number [address] * XR C-Arm 1-1.5 Hours (09/29/2023 7:28 PM CDT) Anatomical Region Laterality Modality X-Ray Angiograph y Narrative 09/29/2023 7:29 PM CDT Fluoroscopy provided by a hybrid technologist. Exact fluoroscopy time is documented in end of exam information in EPIC Simran Kunz APRN, CNP RAD GD * Glucose, Whole Blood POCT (09/29/2023 4:07 AM CDT) Glucose, Whole Blood 98 70 - 180 mg/dL 09/29/2023 4:10 AM CDT [facility] Performing Location [facility] C91 09/29/2023 4:10 AM CDT [facility] Blood 09/29/2023 4:07 AM CDT 09/29/2023 4:10 AM CDT Simran Kunz APRN, CNP LAB_1 Performing Organization Address [facility] de Phone Number [address] * IV Insertion, LST Perform (09/28/2023 9:41 AM CDT) IV INSERTION, LST PERFORM (LAB) Done 09/28/2023 12:00 PM CDT [facility] Other Specimen Type IV Start / Unknown 09/28/2023 9:41 AM CDT 09/28/2023 10:02 AM CDT Simran Kunz APRN, CNP LAB_1 Performing Organization Address [facility] Co de Phone Number [address] * Basic Metabolic Panel (09/28/2023 7:33 AM CDT) Sodium 140 136 - 145 mmol/L 09/28/2023 8:28 AM [facility] Potassium 4.0 3.5 - 5.1 mmol/L 09/28/2023 8:28 AM [facility] Chloride 108 98 - 109 mmol/L 09/28/2023 8:28 AM [facility] CO2 21 20 - 29 mmol/L 09/28/2023 8:28 AM [facility] Anion Gap 11 7 - 16 mmol/L 09/28/2023 8:28 AM [facility] Calcium 8.8 8.4 - 10.4 mg/dL 09/28/2023 8:28 AM [facility] BUN 10 7 - 26 mg/dL 09/28/2023 8:28 AM [facility] Creatinine 0.72 0.55 - 1.02 mg/dL 09/28/2023 8:28 AM [facility] Glucose 97 70 - 100 mg/dL 09/28/2023 8:28 AM [facility] Comment:The given reference range is for the fasting state. Non-fasting reference range for glucose is 70 - 180 mg/dL. GFR, Estimated >60 >60 mL/min/1.7 3m2 09/28/2023 8:28 AM [facility] Blood Venipuncture / Unknown 09/28/2023 7:33 AM CDT 09/28/2023 7:55 AM CDT Gordon Lama APRN, CASH PERSON LAB_1 Performing Organization Address City/State/[facility] Co de Phone Number [address] [address], [facility] * Folate Only (4Hr Fast Recommended) (09/27/2023 2:03 PM CDT) Folate 11.7 >=7.0 ng/mL 09/29/2023 11:57 AM CDT [facility] Blood Venipuncture / Unknown 09/27/2023 2:03 PM CDT 09/27/2023 2:22 PM CDT Gordon Lama APRN, CNP LAB_1 Performing Organization Address [facility] Co de Phone Number [facility] [address] * (ABNORMAL) Hgb A1C (09/27/2023 7:17 AM CDT) Hemoglobin A1C 6.6(H) <=5.6 % 09/28/2023 10:59 AM CDT [facility] Estimated Average Glucose (Calc) 143 < 117 mg/dL 09/28/2023 10:59 AM CDT [facility] Comment:Estimated average gl ucose (eAG) converts A1c into glucose units (mg/dL) and estimates average glucose over the past approximately 3 months. The eAG reference interval (<117 mg/dL) corresponds to an A1c of <5.7%. Blood Venipuncture / Unknown 09/27/2023 7:17 AM CDT 09/27/2023 7:24 AM CDT [facility] - 09/28/2023 10:59 AM CDT For patients not previously diagnosed with diabetes: 5.7-6.4%: Increased risk for diabetes 6.5% and greater: Diagnostic for diabetes For patients diagnosed with diabetes: <8.0%: Goal of therapy for ages 18-75 Clinicians may recommend a higher or lower goal for specific individuals. Gordon Lama APRN, CNP LAB_1 Performing Organization Address [facility] Co de Phone Number [facility] [address] * (ABNORMAL) Vitamin B12 Only (09/27/2023 7:17 AM CDT) Vitamin B12 189(L) 213 - 816 pg/mL 09/28/2023 12:02 PM CDT [facility] Blood Venipuncture / Unknown 09/27/2023 7:17 AM CDT 09/27/2023 7:24 AM CDT [facility] - 09/28/2023 12:02 PM CDT Borderline low serum Vitamin B12 values may not be diagnositic of B12 deficiency (140 to 209 pg/mL). Consider serum methylmalonic acid and homocysteine levels for confirmation. Serum B12 far below normal indicates deficency (<140 pg/mL). Gordon Lama APRN, CNP LAB_1 Performing Organization Address [facility]/ZIP Co de Phone Number [facility] [address] * (ABNORMAL) Iron Profile (Iron,TIBC,%Sat.(Calc)) (09/27/2023 7:17 AM CDT) [facility] Iron 29(L) 50 - 170 mcg/dL 09/27/2023 1:52 PM CDT [facility] Transferrin 247 180 - 382 mg/dL 09/27/2023 1:52 PM [facility] TIBC, Calculated 309 240 - 450 mcg/dL 09/27/2023 1:52 PM [facility] % Saturation, Calculated 9(L) 10 - 50 % 09/27/2023 1:52 PM [facility] TIBC Interpretation Low iron, normal TIBC, possible iron deficiency. 09/27/2023 1:52 PM [facility] Blood Venipuncture / Unknown 09/27/2023 7:17 AM CDT 09/27/2023 7:24 AM CDT Gordon Lama APRN, CNP LAB_1 Performing Organization Address [facility] [place] [address], [facility] * (ABNORMAL) Complete Blood Count-W/Diff (09/27/2023 7:17 AM CDT) [facility] WBC 4.2 3.5 - 10.5 x10(9)/L 09/27/2023 7:34 AM CDT [facility] RBC 3.89(L) 3.90 - 5.03 x10(12)/L 09/27/2023 7:34 AM T [facility] Hemoglobin 9.9(L) 12.0 - 15.5 g/dL 09/27/2023 7:34 AM [facility] HCT 33.4(L) 34.9 - 44.5 % 09/27/2023 7:34 AM [facility] MCV 85.9 80.0 - 100.0 fL 09/27/2023 7:34 AM [facility] MCH 25.4(L) 27.6 - 33.3 pg 09/27/2023 7:34 AM [facility] MCHC 29.6(L) 31.5 - 35.2 g/dL 09/27/2023 7:34 AM [facility] RDW 15.6(H) 11.9 - 15.5 % 09/27/2023 7:34 AM [facility] Platelets 167 150 - 450 x10(9)/L 09/27/2023 7:34 AM [facility] Automated NRBC 0 <=0 /100 WBC 09/27/2023 7:34 AM [facility] Neutrophil Absolute 2.4 1.7 - 7.0 10(9)/L 09/27/2023 7:34 AM [facility] Lymphocyte Absolute 1.1 1.0 - 4.8 10(9)/L 09/27/2023 7:34 AM [facility] Monocyte Absolute 0.4 0.2 - 0.9 10(9)/L 09/27/2023 7:34 AM [facility] Eosinophil Absolute 0.2 0.0 - 0.5 10(9)/L 09/27/2023 7:34 AM [facility] Basophil Absolute 0.0 0.0 - 0.3 10(9)/L 09/27/2023 7:34 AM [facility] Immature Granulocyte % 0.2 0.0 - 0.5 % 09/27/2023 7:34 AM [facility] Blood Venipuncture / Unknown 09/27/2023 7:17 AM CDT 09/27/2023 7:24 AM CDT Filemon Rachel MD LAB_[address] [address], [facility] * (ABNORMAL) Basic Metabolic Panel (09/27/2023 7:17 AM CDT) Sodium 138 136 - 145 mmol/L 09/27/2023 7:57 AM [facility] Potassium 3.8 3.5 - 5.1 mmol/L 09/27/2023 7:57 AM [facility] Chloride 110(H) 98 - 109 mmol/L 09/27/2023 7:57 AM [facility] CO2 21 20 - 29 mmol/L 09/27/2023 7:57 AM [facility] Anion Gap 7 7 - 16 mmol/L 09/27/2023 7:57 AM [facility] Calcium 8.3(L) 8.4 - 10.4 mg/dL 09/27/2023 7:57 AM [facility] BUN 8 7 - 26 mg/dL 09/27/2023 7:57 AM [facility] Creatinine 0.60 0.55 - 1.02 mg/dL 09/27/2023 7:57 AM [facility] Glucose 96 70 - 100 mg/dL 09/27/2023 7:57 AM [facility] Comment:The given reference range is for the fasting state. Non-fasting reference range for glucose is 70 - 180 mg/dL. GFR, Estimated >60 >60 mL/min/1.7 3m2 09/27/2023 7:57 AM [facility] Blood Venipuncture / Unknown 09/27/2023 7:17 AM CDT 09/27/2023 7:24 AM CDT Filemon Rachel MD LAB_1 Performing Organization Address City/State/[facility] Co de Phone Number [phone] [place] [address] * Glucose, Whole Blood POCT (09/27/2023 4:27 AM CDT) Glucose, Whole Blood 111 70 - 180 mg/dL 09/27/2023 4:28 AM [facility] POCT Comment 1 /RN Notified 09/27/2023 4:28 AM [facility] Performing Location [facility] C91 09/27/2023 4:28 AM [facility] Blood 09/27/2023 4:27 AM CDT 09/27/2023 4:28 AM CDT Filemon Rachel MD LAB_[address] [address], [facility] * CT Abd Pelvis W IV Cont (09/26/2023 10:40 PM CDT) Anatomical Region Laterality Modality Abdomen, Pelvis Computed Tomogra phy 09/26/2023 10:4 0 PM CDT Narrative 09/26/2023 10:55 PM CDT EXAM: CT ABD PELVIS W IV CONT LOCATION: [facility] DATE: 09/26/2023 INDICATION: Left-sided abdominal pain, with [...] CT ABD PELVIS W IV CONT LOCATION: [facility] DATE: 09/26/2023 INDICATION: Left-sided abdominal pain, with [...] - 78 U/L 09/26/2023 10:23 PM CDT [facility] Blood Venipuncture / Unknown 09/26/2023 9:48 PM CDT 09/26/2023 9:53 PM CDT Grey Espinosa PA-C LAB_1 Performing Organization Address City/State/[facility] Co de Phone Number [address] * (ABNORMAL) Liver Panel (Hepatic Function Panel) (09/26/2023 9:48 PM CDT) Alkaline Phosphatase 124 40 - 150 U/L 09/26/2023 10:23 PM T [facility] Bilirubin, Total 0.6 0.2 - 1.2 mg/dL 09/26/2023 10:23 PM [facility] Bilirubin, Direct 0.2 0.0 - 0.5 mg/dL 09/26/2023 10:23 PM [facility] AST (SGOT) 14 10 - 40 U/L 09/26/2023 10:23 PM [facility] ALT (SGPT) 11 <=55 U/L 09/26/2023 10:23 PM T [facility] Protein, Total 6.5 6.4 - 8.3 g/dL 09/26/2023 10:23 PM [facility] Albumin 2.8(L) 3.5 - 5.0 g/dL 09/26/2023 10:23 PM [facility] Blood Venipuncture / Unknown 09/26/2023 9:48 PM CDT 09/26/2023 9:53 PM CDT Greysilvaan Espinosa PA-C LAB_[address] * (ABNORMAL) Basic Metabolic Panel (09/26/2023 9:48 PM CDT) Pathologist [facility] Sodium 137 136 - 145 mmol/L 09/26/2023 10:23 PM [facility] Potassium 3.8 3.5 - 5.1 mmol/L 09/26/2023 10:23 PM [facility] Chloride 107 98 - 109 mmol/L 09/26/2023 10:23 PM [facility] CO2 20 20 - 29 mmol/L 09/26/2023 10:23 PM [facility] Anion Gap 10 7 - 16 mmol/L 09/26/2023 10:23 PM [facility] Calcium 8.8 8.4 - 10.4 mg/dL 09/26/2023 10:23 PM [facility] BUN 11 7 - 26 mg/dL 09/26/2023 10:23 PM [facility] Creatinine 0.77 0.55 - 1.02 mg/dL 09/26/2023 10:23 PM [facility] Glucose 125(H) 70 - 100 mg/dL 09/26/2023 10:23 PM [facility] Comment:The given reference range is for the fasting state. Non-fasting reference range for glucose is 70 - 180 mg/dL. GFR, Estimated >60 >60 mL/min/1.7 3m2 09/26/2023 10:23 PM [facility] Blood Venipuncture / Unknown 09/26/2023 9:48 PM CDT 09/26/2023 9:53 PM CDT Grey Espinosa PA-C LAB_[address] * (ABNORMAL) Complete Blood Count no Diff (09/26/2023 9:48 PM CDT) WBC 5.6 3.5 - 10.5 x10(9)/L 09/26/2023 9:58 PM [facility] RBC 4.06 3.90 - 5.03 x10(12)/L 09/26/2023 9:58 PM [facility] Hemoglobin 10.4(L) 12.0 - 15.5 g/dL 09/26/2023 9:58 PM [facility] HCT 34.1(L) 34.9 - 44.5 % 09/26/2023 9:58 PM [facility] MCV 84.0 80.0 - 100.0 fL 09/26/2023 9:58 PM [facility] MCH 25.6(L) 27.6 - 33.3 pg 09/26/2023 9:58 PM [facility] [facility] MCHC 30.5(L) 31.5 - 35.2 g/dL 09/26/2023 9:58 PM [facility] RDW 15.6(H) 11.9 - 15.5 % 09/26/2023 9:58 PM [facility] Platelets 165 150 - 450 x10(9)/L 09/26/2023 9:58 PM [facility] Automated NRBC 0 <=0 /100 WBC 09/26/2023 9:58 PM [facility] Blood Venipuncture / Unknown 09/26/2023 9:48 PM CDT 09/26/2023 9:53 PM CDT Grey Espinosa PA-C LAB_1 Performing Organization Address [facility]/State/[facility] de Phone Number [address] * (ABNORMAL) Urine Culture (09/26/2023 9:02 PM CDT) Urine Culture Growth(A) 09/27/2023 5:20 PM [facility] Urine Culture <10,000 CFU/mL Mixed Bacterial Growth 09/27/2023 5:20 PM [facility] Comment: Mixed Bacterial Growth indicates the specimen is likely contaminated at collection with urogenital and/or fecal lou. The presence of organisms at <10,000 cfu/ml in culture, UTI unlikely. Urine URINE SPECIMEN COLLECTION, CLEAN CATCH / Unknown Non-blood Collection / Unknown 09/26/2023 9:02 PM CDT 09/26/2023 9:31 PM CDT Grey Espinosa PA-C LAB_[address] [address], [facility] * (ABNORMAL) UA Conditional UC: Clean Catch (09/26/2023 9:02 PM CDT) Urine Culture Comment Urinalysis results meet criteria for reflex, culture performed. 09/26/2023 9:39 PM CDT [facility] Urine Color [place] 09/26/2023 9:39 PM T [facility] Urine Clarity Turbid(A) Clear 09/26/2023 9:39 PM [facility] Specific [place], Urine 1.020 <1.030 09/26/2023 9:39 PM [facility] PH Urine 6.0 5.0 - 8.0 09/26/2023 9:39 PM [facility] Protein, Urine Qual (mg/dL) 100(A) Negative, 10 , 20 09/26/2023 9:39 PM [facility] Glucose Urine Qual (mg/dL) Normal (Negative) Normal (Negative), 30 , 50 09/26/2023 9:39 PM [facility] Ketones, Urine (mg/dL) Negative Negative, Trace 09/26/2023 9:39 PM [facility] Urobilinogen, Urine (EU/dL) Normal (Negative) Normal (Negative) 09/26/2023 9:39 PM [facility] Bilirubin Urine (mg/dL) Negative Negative 09/26/2023 9:39 PM [facility] Blood, Urine (mg/dL) OVER (>1.0, Large)(A) Negative, 0.03 (Trace) 09/26/2023 9:39 PM [facility] Nitrite Urine Negative Negative 09/26/2023 9:39 PM [facility] Leukocyte Esterase, Urine (Ant/uL) 500 (Large)(A) Negative, 25 (Trace) 09/26/2023 9:39 PM [facility] Red Blood Cells >180(H) 0 - 3 /HPF 09/26/2023 9:39 PM CDT [facility] White Blood Cells 116(H) 0 - 5 /HPF 09/26/2023 9:39 PM CDT [facility] Squamous Epithelial Cells Occasional None Seen, Occasional, Few /HPF 09/26/2023 9:39 PM CDT [facility] Mucus Present(A) None Seen /HPF 09/26/2023 9:39 PM CDT [facility] Urine Source Clean Catch 09/26/2023 9:39 PM CDT [facility] Urine URINE SPECIMEN COLLECTION, CLEAN CATCH / Unknown Non-blood Collection / Unknown 09/26/2023 9:02 PM CDT 09/26/2023 9:07 PM CDT Narrative [facility] - 09/26/2023 9:39 PM CDT The qualitative interpretive guidance provided (e.g., small, moderate, large) is intended to aid in quantitative result interpretation. It is not itself an FDA-cleared test result. Grey Espinosa PA-C LAB_1 Performing Organization Address City/State/[facility] de Phone Number [address] documented in this encounter Visit Diagnoses Diagnosis [...] Coronary atherosclerosis of unspecified type of vessel, [place] or graft Essential hypertension (HRC) Unspecified essential hypertension Left ureteral stone Left ureteral stone * Plan of Care - Enedina Martin RN - 09/30/2023 12:10 PM CDT [facility] Discharge Note - Nursing Admission Date/Time: 09/26/2023 7:33 PM Attending MD: Simran Kunz, REAL PROPERTY APPRAISER, CASH PERSON Patient discharged: to Home. Discharge Date: 09/30/2023 [...] Castillo LSW - 09/30/2023 11:36 AM CDT [facility] Care Management Screening Insurance Coverage: [facility]: [facility] / Plan: [facility] / Product Type: Medicaid / Primary [...] SW did place return call to patient's [facility] MYCHAL Stern PH: [phone]. SW able to leave a message to Leena regarding patient's admission date and discharge of today. Please consult if additional needsdo arise. BIBIANA Peterson * Plan of Care - Natalia Solis RN - 09/30/2023 2:51 AM CDT Pt alert, awake and oriented x3. Disoriented to situation. Communicated via iPad supervisor assembly. Reoriented as needed. Explained POC. Denies pain, SOB and N/V/D. IV LR infusing at 75 ml/hr. Up to the BRwith A1, GB and walker. * Plan of Care - Oliver Evans RN - 09/29/2023 10:56 PM CDT [facility] Plan of Care Note Pt is alert and oriented with some confusion to time noted. Pt is calm and cooperative with cares. Son present for communication and ipad supervisor assembly used after family left. Pt reported pain and received PRN tylenol. PRN was effective. Denies N/V, SOB. IV LR infusing at 75 ml/hr. Pt went for surgery this shift and post-op vitals obtained. VS stable on RA. Call light and alarms in place for safety. --- End of Report ---[facility]. Practitioner Notified Note Name of Practitioner notified: [...] Auguste RN - 09/29/2023 1:40 PM CDT [facility] supervisor assembly used for assessment/cares. Pt A&Ox3, disoriented to [...] Sebastian RN - 09/29/2023 6:18 AM CDT Manager Mobile utilized w/ encounters. Patient A/O x3. VSS [...] on. Pt is Hmong speaking and requires supervisor assembly. * Plan of Care - EmmykeshawnBrea killian Jeanne - 09/28/2023 2:21 PM CDT Patient is A&O x3, disoriented to time. Needs Hmong supervisor assembly. Heart rate is cecilia in the 50's, [...] alarm on for safety. Assumed cares from [phone] * Plan of Care - Renetta Castillo LSW - 09/28/2023 11:16 AM CDT [facility] Care Management Screening Insurance Coverage: [facility] / Plan: [facility] / Product Type: Medicaid / Primary [...] to time, Hmong speaking only - iPad supervisor assembly used and family helping to interpret per [...] Haque RN - 09/27/2023 2:34 PM CDT [facility] Plan of Care Note Assumed care from [...] and Intervention: Triage: Yellow Bands and Non-slip wellness specialist footwear documented in this encounter Administered Medications [...] dose on Wed09/27/23 at 2000, Until Discontinued Given 09/29/2023 9:00 [...] or equal to 119 kg PRE-OP, Pre-op cephalexin (KEFLEX) capsule 500 mg 500 mg, [...] (SUBLIMAZE) injection 25-50 mcg 25-50 mcg, Intravenous, [id number], Pain, Starting on Wed09/29/23 at 1925, Until [...] (NORMODYNE) injection 5 mg 5 mg, Intravenous, [id number], Blood Pressure >, Starting on Wed09/29/23 at [...] Given 09/29/2023 8:49 AM CDT 1 Tablet documented in this encounter Active and Recently Administered Medications Times are shown in CDT. Scheduled Medication Order 09/28/2023 09/29/2023 09/30/2023 aspirin chewable tablet 81 mg 81 mg, Oral, ASPIRIN - DAILY, First dose on Wed09/27/23 at 1999, Until Discontinued 2042 (Given - Provider: sEtelle Dahl RN) 2100 (Given - Provider: Oliver [...] other calcium-containing IV solutions due to incompatibility. 2229 (Started - Provider: Estelle Dahl RN)2303 (Infused - Provider: Benjamin Parks RN) 214 (Started - Provider: Oliver Evans RN)2244 (Infused - Provider: Oliver Evans RN) cephalexin [...] in Manage Orders - Provider: Inpatient Template Epicia) cyanocobalamin (VITAMIN B12) tablet 1,000 mcg 1,000 [...] RN) 0930 (Given - Provider: Enedina Martin RN)1404 [...] not met) 0930 (Given - Provider: Enedina Martin, NEGIN) rosuvastatin (CRESTOR) tablet 10 mg 10 mg, Oral, DAILY, First dose on Wed09/27/23 at 0800, Until Discontinued 0844 (Given - Provider: Brea Muir) 0856 (Given - Provider: Kelly Auguste, NEGIN) 0930 (Given - Provider: Enedina Martin RN) sennosides-docusate sodium (SENOKOT S) 8.6-50 MG per tablet 1 Tablet 1 Tablet, Oral, BID, First dose on Wed09/28/23 at 2000, Until Discontinued, as laxative/stimulant, stool-softening agent, Indications: Constipation, While on iron 2042 (Given - Provider: Estelle Dahl RN) 0849 (Given - Provider: Kelly Auguste, NEGIN)2100 (Given - Provider: Oliver Evans RN) 0930 (Given - Provider: Enedina Martin RN) Continuous Medication Order 09/28/2023 09/29/2023 09/30/2023 lactated ringers infusion Intravenous, at 75 mL/hr, CONTINUOUS, Starting on Wed09/27/23 at 0115 0420 (Subsequent Bag - Provider: Isamar Calhoun RN)1940 (Subsequent Bag - Provider: Jayna Alvarenga RN)2230 (Stopped - Provider: Benjamin Parks, NEGIN)2303 (Restarted - Provider: Benjamin Parks, RN) 0906 (Subsequent Bag - Provider: Kelly Auguste RN) 0124 (Subsequent Bag - Provider: Moragn Harper RN) lactated ringers infusion (CANCELED) Intravenous, at 30 mL/hr, CONTINUOUS, Starting on Wed09/29/23 at 1800, Pre-op 1832 (Started - Provider: Jimena Peraza APRN, VALERI)1929 (Anesthesia Fluid - Provider: Jimena Peraza APRN, VALERI) PRN Medication Order 09/28/2023 09/29/2023 09/30/2023 acetaminophen (TYLENOL) tablet 650 mg 650 mg, Oral, Q6H PRN, Pain/Fever, Initially give acetaminophen for patient with mild pain., Starting on Wed09/27/23 at 0054, Until Julianna 09/30/23 at 1615, Initially give acetaminophen for patient with mild pain. Acetaminophen may be given WITH other pain medications as adjunct pain relief. Do not give two acetaminophen containing medications within 4 hours of each other. 0857 (Given - Provider: Ricky Hagen RN) 0857 (Given - Provider: Kelly Auguste RN)1614 (Given - Provider: Oliver Evans RN) benzocaine-menthol [...] Stomach, Starting on Wed09/27/23 at 0054, Until Wed09/30/23 at 1615, For indigestion/upset stomach dextrose (D50) [...] (SUBLIMAZE) injection 25-50 mcg 25-50 mcg, Intravenous, [id number], Pain, Starting on Wed09/29/23 at 1925, Until [...] PRN, Starting on Wed09/29/23 at 1757, Until Wed09/30/23 at 1615, Intra-op 1757 (Given - Provider: Jose Gee MD - Comment: Mixed 1:1 with NaCl on sterile field) labetalol (NORMODYNE) injection 5 mg 5 mg, Intravenous, [id number], Blood Pressure >, Starting on Wed09/29/23 at [...] day, begin regimen again until patient stools. 910 (Not Given - Provider: Ricky Hagen RN [...] Practitioner. documented in this encounter Care Teams Follow Up Clerk Relationship Specialty Start Date End Date No Primary/Referring, Phy PCP - General 08/26/23 documented as of this encounter
--- OUTSIDE RECORDS SUMMARY | 2023-11-04 22:49 | XMS_ITS | Encounter Summary ---
Author Name Unknown Organization [facility] Address [address], [place] [address] Care Team Providers Care Aircraft Maintenance Technician Name Role Phone No Primary/Referring, Phy Primary Care Provider Unavailable Reason for Visit * Auth/Cert (Routine) Specialty Diagnoses / Procedures Referred By Contcolin t Referred To Contact Diagnoses Flank pain Nephrolithiasis Urinary tract infection with hematuria, site unspecified Nephrolithiasis Urinary tract infection with hematuria, site unspecified Flank pain Referral ID Status Reason Start Date Expiration Date Visits Re quested Visits Authorized [id number] 1 1 Encounter Details Date Type Department Care Team (Late st Contact Info) Description 08/27/2023 7:34 AM ADULT PROTECTIVE CASEWORKER Anesthesia Event [facility] Operating Room [address] [place] [id number] Kerri Quezada MD [address] [place] [address] Rob Tabor APRN, CRNA [address] [place] [address] Anesthesia Record Procedure Summary Procedure Name Responsible Anesthesiologist Anesthesia Start Time Anesthesia Stop Time Cystoscopy, Left retrograde pyelogram, Left ureteral stent placement (6 Kyrgyz x 22 cm double J), Negrete catheter placement (Left) Kerri Quezada MD 08/27/23 0734 08/27/23 0810 Events Date Time Event Comment 08/27/2023 0734 An Start 0737 An Start Data 0743 MD/ Present 0806 an stop data 0810 Care Handoff Note I discusse d with [...] of understanding of report Electronically signed by Rbo Tabor, SHAYNE, COST RECOVERY TECHNICIAN 0810 An Stop Care transferre d. Meds Name Total midazolam 2 mg/2 mL injection (aka VERSE D) 0.5 mg fentaNYL injection (aka SUBLIMAZE) 0.5 m L lidocaine 1% PF injection aka (XYLOCAINE ) 20 mg propofol 10 mg/mL for procedural sedatio n (aka diPRIvan) 20 mg propofol 10 mg/mL for procedural sedatio n (aka diPRIvan) 31.44 mg ondansetron injection (aka ZOFRAN) 4 mg ceFAZolin (ANCEF) 2 g in sodium chloride 0.9 % 50 mL IVPB ADS 2 g lactated ringers infusion 400 mL * Agents Name 02 Delivery Device O2 N2O Air * Blood No blood administrations on file. Lines, Drains, and Airways Type Details Placement Removal Peripheral IV Placement Date: 08/26/23; Pre-existing: Yes; Inserted by?: Amb Medic; Size (Gauge): 20 G; Orientation: Left; Patient Tolerance: Tolerated well; Removal Date: 08/28/23; Removal Time: 1121; Catheter Tip: Intact 08/26/23 0000 by Shannon Cali RN 08/28/23 1121 by Juan Mas PCA Indwelling Urethral Catheter 08/27/23; 0800; No; Dr. Price; 1 person; Indwelling Catheter; 16 Fr.; 1; No longer needed 08/27/23 0800 by Wanda Read RN 08/29/23 1041 by Agustina Parks RN Incision/Surgical Site 08/27/23; 0801; # 1; No; Urethra; 09/12/23; 1404 08/27/23 0801 by Wanda Read RN 09/12/23 1404 by Ca, Discontinue documented in this encounter Social History Tobacco Use Types Packs/Day Years Used Date Smoking Tobacco: Never Assessed Sex and Gender Information Value Date Recorded Sex Assigned at Not on file Gender Identity Not on file Sexual Orientation Not on file documented as of this encounter Miscellaneous Notes * Anesthesia Postprocedure Evaluation - Kerri Quezada MD - 08/27/2023 9:57 AM CST [facility] Anesthesia Post-op Note Patient: Sendy Moses Post-Op Diagnosis: Pre-Op Diagnosis Codes: * Left ureteral stone [N20.1] Procedure Performed: Procedure(s): Left - CYSTOSCOPIC PLACEMENT URETERAL STENT - Wound Class: 2 CLEAN-CONTAMINATED Anesthesia Type: MAC Post-op vital signs: Vitals Value Taken Time BP 124/55 08/27/23 0924 Temp 98 ??F (36.7 ??C) 08/27/23 0840 Pulse 57 08/27/23 0957 Resp 17 08/27/23 0856 SpO2 94 % 08/27/23 0856 Vitals shown include unfiled device data. Pain Score: Preferred Pain Scale: word (Verbal Rating Pain Scale) (0-10) Pain Rating: Rest: 2 Post-op assessment: Patient location: PACU Airway Status: Patent Cardiovascular function: Satisfactory Hydration status: Satisfactory PONV: None Level of Consciousness: Awake Fully Participates Postop Assessment: Patient tolerated procedure well. Electronically signed by: Kerri Quezada MD 08/27/2023 9:57 AM T PROTECTIVE CASEWORKER * Anesthesia Preprocedure Evaluation - Kerri Quezada MD - 08/27/2023 6:53 AM CST [facility] Anesthesia Pre-op Evaluation Procedure: CYSTOSCOPIC PLACEMENT URETERAL STENT, Left HPI: 77 y.o. old female. Pre-Op Diagnosis Codes: * Left ureteral stone [N20.1] No Known Allergies Patient Active Problem List Diagnosis Cataract, nuclear sclerotic senile, bilateral Chronic heart failure with preserved ejection fraction (HRC) Dyslipidemia (HRC) S/P CABG x 3 Severe mitral regurgitation (HRC) Dermatochalasis of both upper eyelids Coronary atherosclerosis (HRC) Left ureteral stone No past surgical history on file. Outpatient Medications as of 08/27/2023 Medication Sig clopidogrel (PLAVIX) 75 MG tablet Take 1 Tablet (75 mg) by mouth daily. furosemide (LASIX) 20 MG tablet Take 1 Tablet (20 mg) by mouth daily. gabapentin (NEURONTIN) 300 MG capsule Take 1 Capsule (300 mg) by mouth three times a day. lisinopril (ZESTRIL) 2.5 MG tablet Take 1 Tablet (2.5 mg) by mouth daily. metoprolol succinate (TOPROL XL) 25 MG 24 hour release tablet Take 0.5 Tablets (12.5 mg) by mouth daily. nitroglycerin (NITROSTAT) 0.[address] 1 Tablet (0.4 mg) under tongue every 5 minutes as needed for Chest Pain. pantoprazole DR (PROTONIX) 40 MG tablet Take 1 Tablet (40 mg) by mouth daily. rosuvastatin (CRESTOR) 10 MG tablet Take 1 Tablet (10 mg) by mouth daily. Labs: Lab Results Component Value Date/Time SODIUM 138 08/27/2023 05:08 AM K 3.3 (L) 08/27/2023 05:08 AM CHLORIDE 106 08/27/2023 05:08 AM BUN 24 08/27/2023 05:08 AM CREATININE 1.14 (H) 08/27/2023 05:08 AM GLUCOSE 144 (H) 08/27/2023 05:08 AM Lab Results Component Value Date/Time WBC 6.3 08/27/2023 05:08 AM HGB 11.0 (L) 08/27/2023 05:08 AM HCT 36.6 08/27/2023 05:08 AM PLTS 192 08/27/2023 05:08 AM INR (no units) Date Value 08/27/2023 1.0 Blood Bank: ABO (no units) Date Value 08/27/2023 O Antibody Screen Interpretation (no units) Date Value 08/27/2023 Negative EKG: Date of last EK08/26/23 ECG 12-Lead STAT Result Value Ref Range Ventricular Rate 64 BPM Atrial Rate 64 BPM P-R Interval 156 ms QRS Duration 164 ms QT 476 ms QTc 491 ms P [place] 11 degrees R [place] 12 degrees T [place] 12 degrees Physical Exam: BP 107/60 Pulse (!) 57 Temp 97 ??F (36.1 ??C) (Temporal Artery) Resp 20 Ht 5' 3 (1.6 m) Wt 58.4 kg (128 lb 11.2 oz) SpO2 96% BMI 22.80 kg/m?? Assessment/Plan: Review of Systems Patient does not have GERD. Patient is not a current smoker. The patient denies alcohol use. Patient denies any recent URI. History of PONV: No. History of motion sickness: No. Patient denies any personal or family history of anesthesia complications. NPO Status: Acceptable. Exam Mental Status: Alert and oriented. Mallampati score: III (Three). Mouth opening: Normal Thyromental Distance: > 3 finger breadths and Normal Neck Extension: Full Neck Circumference > 40 cm?: No Current airway assessment:Normal Dentition: Dentures. Cardiac Exam: Regular rate and rhythm. Respiratory Exam: Breath sounds clear to auscultation Assessment ASA Status: 3 . Plan Anesthesia type: MAC Induction: Intravenous and Propofol Maintenance: TIVA PONV Risk Score Adult: 2 PONV Prophylaxis (planned): Ondansetron Anesthetic plan, risks, benefits and alternatives discussed with the patient who agrees to the anesthesia treatment plan and Hospitalist Medical Director used. H&P Reviewed and Patient examined, no change observed IV access Antibiotics per surgery Electronically signed by: Kerri Quezada MD 08/27/2023 6:53 AM T PROTECTIVE CASEWORKER documented in this encounter Plan of Treatment Not on file documented as of this encounter Visit Diagnoses Not on filedocumented in this encounter Administered Medications Inactive Administered Medications - up to 3 most recent administrations Medication Order MAR Action Action Date Dose Rate Site ceFAZolin (ANCEF) 2 g in sodium chloride 0.9 % 50 mL IVPB ADS 2 g, Intravenous, Administer over 30 Minutes, ONCE (NON-SCHEDULED), Starting on Wed08/27/23 at 0553, For 1 dose, For patient weight less than or equal to 119 kg PRE-OP, Pre-op Started 08/27/2023 7:50 AM ADULT PROTECTIVE CASEWORKER 2 g fentaNYL (SUBLIMAZE) injection Intravenous, Starting on Wed08/27/23 at 0734, Until Wed08/27/23 at 0810 Given 08/27/2023 7:34 AM ADULT PROTECTIVE CASEWORKER 0.5 mL lactated ringers infusion Intravenous, at 100 mL/hr, CONTINUOUS, Starting on Wed08/27/23 at 0330 Restarted 08/27/2023 7:34 AM ADULT PROTECTIVE CASEWORKER Started 08/27/2023 4:41 AM ADULT PROTECTIVE CASEWORKER 100 mL/hr lidocaine PF (XYLOCAINE) 1 % injection Intravenous, Starting on Wed08/27/23 at 0744 Given 08/27/2023 7:44 AM ADULT PROTECTIVE CASEWORKER 20 mg midazolam (VERSED) injection Intravenous, Starting on Wed08/27/23 at 0734, Until Wed08/27/23 at 0810 Given 08/27/2023 7:34 AM ADULT PROTECTIVE CASEWORKER 0.5 mg ondansetron (ZOFRAN) injection Intravenous, Starting on Wed08/27/23 at 0744, Until Wed08/27/23 at 0810 Given 08/27/2023 7:44 AM ADULT PROTECTIVE CASEWORKER 4 mg propofol (DIPRIVAN) 10 mg/mL injection Intravenous, Starting on Wed08/27/23 at 0744, Until Wed08/27/23 at 0810 Started 08/27/2023 7:44 AM ADULT PROTECTIVE CASEWORKER 50 mcg/kg/min 15.72 mL/hr propofol (DIPRIVAN) 10 mg/mL injection Intravenous, Starting on Wed08/27/23 at 0758, Until Wed08/27/23 at 0810 Given 08/27/2023 7:58 AM ADULT PROTECTIVE CASEWORKER 20 mg documented in this encounter Care Teams Aircraft Maintenance Technician Relationship Specialty Start Date End Date No Primary/Referring, Phy PCP - General 08/26/23 documented as of this encounter
--- OUTSIDE RECORDS SUMMARY | 2023-11-04 22:49 | XMS_ITS | Encounter Summary ---
Author Name Unknown Organization [facility] Address [address] [address] Care Team Providers Care Precision Lens Grinder Apprentice Name Role Phone No Primary/Referring, Phy Primary Care Provider Unavailable Encounter Details Date Type Department Care Team (Latest Contact Info) Description 09/26/2023 Orders Only HIM DEPARTMENT Provider, [place] [address] Social History Tobacco Use Types Packs/Day Years [...] place to sleep or slept in a snf (including now)? No 09/27/2023 Sex and Gender Information Value Date Recorded Sex Assigned at Not on file Gender Identity Not on file Sexual Orientation Not on file documented as of this encounter Plan of Treatment Not on file documented as of this encounter Procedures Procedure Name Priority Date/Time Associated Diagnosis Comments EKG 09/26/2023 documented in this encounter Results * EKG (09/26/2023) Interface Provider MD EKG documented in this encounter Visit Diagnoses Not on filedocumented in this encounter Care Teams Precision Lens Grinder Apprentice Relationship Specialty Start Date End Date No Primary/Referring, Phy PCP - General 08/26/23 documented as of this encounter
--- OUTSIDE RECORDS SUMMARY | 2023-11-04 22:49 | XMS_ITS | Encounter Summary ---
Author Name Unknown Organization [facility] Address [address], [place] [address] Care Team Providers Care Drafter Patent Name Role Phone No Primary/Referring, Phy Primary Care Provider Unavailable Encounter Details Date Type Department Care Team (Late st Contact Info) Description 09/27/2023 Telephone [facility] [address] [facility] [place], [place] [phone] Jenna Fermin PA-C [address] [place], [place] [phone] Social History Tobacco Use Types Packs/Day Years [...] place to sleep or slept in a usp (including now)? No 09/27/2023 Sex and Gender Information Value Date Recorded Sex Assigned at Not on file Gender Identity Not on file Sexual Orientation Not on file documented as of this encounter Nursing Notes * Radha Morrison RN - 09/27/2023 2:47 PM CDT 10/04 is ok. Lakshmi Santos RN 09/27/2023 2:47 PM * Alix Bernal - 09/27/2023 2:42 PM CDT Patient has apt scheduled for 10/04, will appt need to be sooner? Alix Bernal 09/27/2023, 2:42 PM * Alix Bernal - 09/27/2023 2:37 PM CDT ----- Message from Jenna Fermin PA-C sent at 09/24/2023 4:13 PM CDT ----- Regarding: follow up in clinic Hi there, This was seen today at an OSH ER (we cannot see the records) for malaise/fatigue/feeling unwell since stent placement with us. ED provider discharging on antibiotics for UTI but requesting follow up in our clinic early next week for symptom review. Could we call patient/daughter to offer appointment? Thanks, Jenna Fermin PA-C documented in this encounter Plan of Treatment Not on file documented as of this encounter Visit Diagnoses Not on filedocumented in this encounter Care Teams Drafter Patent Relationship Specialty Start Date End Date No Primary/Referring, Phy PCP - General 08/26/23 documented as of this encounter
--- OUTSIDE RECORDS SUMMARY | 2023-11-04 22:49 | XMS_ITS | Encounter Summary ---
Author Name Unknown Organization Formerly [facility] Address [address], [place] [address] Care Team Providers Care Steam Table Attendant Name Role Phone No Primary/Referring, Phy Primary Care Provider Unavailable Reason for Referral * Consult/Transfer Care (Routine) - New Request Specialty Diagnoses / Procedures Referred By Alfonso killian Referred To Contact Diagnoses Hypotension due to hypovolemia Hilaria Armendariz MD [address] [place] [id number] Referral ID Status Reason Start Date Expiration Date V isits Requested Visits Authorized [id number] New Request 09/01/2023 11/30/2023 1 1 Scheduling Instructions Your clinician has recommended an appointment with [facility] for your ongoing patient care. You can quickly make your appointment online at [employer]schedule. You can also call [phone] for help scheduling your appointment. We suggest you call your health insurance company about your coverage and benefits for this appointment. Question Answer What type of follow up? IP Discharge Appointment Urgency? Non-Urgent Comments Primary Care Provider: No Primary/Referring [employer] PREPARATION * Procedure/Equipment (Routine) - Incomplete Specialty Diagnoses / Procedures Referred By Contcolin t Referred To Contact Procedures CT Head WO IV Cont Hilaria Armendariz MD [address] [place] [id number] Referral ID Status Reason Start Date Expiration Date V isits Requested Visits Authorized [id number] Incomplete 09/01/2023 11/30/2024 1 1 [employer] PREPARATION * Procedure/Equipment (Routine) - Incomplete Specialty Diagnoses / Procedures Referred By Contac t Referred To Contact Procedures XR Chest 2 Views Amaya Driscoll MD [address] [place] [id number] Referral ID Status Reason Start Date Expiration Date V isits Requested Visits Authorized [id number] Incomplete 09/01/2023 11/30/2024 1 1 [employer] PREPARATION Reason for Visit * Reason Comments LETHARGY INFLUENZA LIKE ILLNESS Encounter Details Date Type Department Care Team (Late st Contact Info) Description 09/01/2023 3:22 AM [employer] PREPARATION - 09/01/2023 6:32 PM [facility] PREPARATION [facility] [address] [place] [id number] Amaya Driscoll MD [address] [place] [phone] Francoise Vargas MD [address] [place] [id number] Hilaria Armendariz MD [address] [place] [id number] Nathan Wilson MD [address] [place] [id number] Hypotension, unspecified hypotension type (Primary Dx); Influenza-like illness; Hypotension due to hypovolemia; Elevated troponin; Weakness Discharge Disposition: Home Social History Tobacco Use Types Packs/Day Years Used Date Smoking Tobacco: Never Assessed Sex and Gender Information Value Date Recorded Sex Assigned at Not on file Gender Identity Not on file Sexual Orientation Not on file documented as of this encounter Last Filed Vital Signs Vital Sign Reading Time Taken Comments Blood Pressure 125/61 09/01/2023 3:02 PM [employer]PAR[employer] Pulse 63 09/01/2023 3:02 PM [employer]PARATION Temperature 36.7 ??C (98.1 ??F) 09/01/2023 3:02 PM CS T Respiratory Rate 16 09/01/2023 3:02 PM [employer]PARATION Oxygen Saturation 99% 09/01/2023 3:02 PM [employer]PARATION Inhaled Oxygen Concentration - - Weight - - Height - - Body Mass Index - - documented in this encounter Discharge Summaries * Hilaria Armendariz MD - 09/01/2023 6:32 PM CST [facility] Medicine Discharge Summary Patient ID: Sendy Moses [id number] y.o. 1945 Admit date: 09/01/2023 Discharge date: 09/01/2023 Final Discharge Diagnoses: Primary problem: Hypotension Hypotension Myalgias * No resolved hospital problems. * Impinjong under baster was used Brief HPI Summary: Sendy Moses is a 77 y.o. female with PMH CAD s/p CABG x3, HFpEF (on metoprolol succinate, furosemide), and recent hospitalization for uretral stent c/b severe sepsis 07/30/ to complicated UTI (on 14 days Keflex) who presented to ED with one day of now-improved lethargy and leg numbness/pain found to have incidental hypotension. She is now s/p total 2L of IVF bolus and dose of ceftriaxone, still experiencing some leg numbness with improved BP. Please see the admission history and physical for full details. Hospital Course, by problem: # Hypotension # Hx complicated UTI s/p abx treatment # Hx L uretral stone s/p L uretral stent placement # Recent episode of severe sepsis Patient presenting with hypotension responsive to 1L NS bolus in ED. Patient's family mentions her PO intake has been quite poor since discharge on 08/28. Per daughter, patient eating and drinking veryminimally since 08/28. Furthermore, daughter believes there may have been a miscommunication with [facility] following discharge because it is likely the patient is still taking her cardiac medications (metoprolol succinate 25 mg, furosemide 20 mg, lisinopril 2.5mg) though discontinuation was recommended. At this time, dehydration is most likely etiology of patient's hypotension. However, there isheightened concern for sepsis given recent hospitalization. In the ED, WBC, lactate, procal all within normal limits. COVID, Influenza, RSV negative with CXR not concerning for pneumonia. UA results are suspicious for UTI which is unsurprising considering recent hospitalization for similar issue, but it is possible this is contributing to hypotension. Pt received IV CTX dose and will continue outp atient Keflex dose. BMP without overt electrolyte abnormalities. S/p additional 1L of IVF (2 total L) - Continue cephalexin as previously prescribed - Hold furosemide and lisinopril until PO intake improves - As patient has not been eating or drinking well due to pain, we ideally wanted her to stay overnight to ensure she is able to maintain her hydration orally; however patient adamant about leaving and family in agreement. Education provided on drinking plenty of water, goal for urine color is pale yellow to clear, if darker increase water intake, holding medications as above, if edema is noted inlegs it is okay to take a dose of lasix # Chronic leg numbness and pain Pain has been occurring for months in bilateral legs, per daughter. Similar sensation also started to occur in hands on night of admission, per daughter. This discomfort tends to be much worse at night. Given patient has significant vascular disease and was unable to complete a neuro exam (due to not understanding instructions?) stroke is a concern though bilateral nature of the complaint would make this less likely. Non-con head CT ordered showed no acute abnormality, but sequelae of chronic microangiopathy. With the exception of new hand involvement, symptoms do sound like restless leg syndrome. Patient's hemoglobin today is 11.9 (recent baseline ~11) with borderline MCV (80.5). Can consider iron studies to support this theory. Patient has gabapentin on TE[employer]PRINTER INSTALL[employer] med list but it is unclear from limited patient charting what the indication is for this and whether she has actually been taking it. - TE[employer]PRINTER INSTALLER Gabapentin 300 mg TID - Follow-up iron studies # Elevated troponin Troponin peak at 0.13. Delta six hours later at 0.08. Likely trop leak secondary to hypotension in the setting of CAD. Chronic Issues: # HTN # HFpEF # CAD - resume TELEPRINTER INSTALLER medications Primary care/TCU recommendations for follow up, including significant medication changes, medications being held, or recommended imaging or labs: - HOLD lisinopril and furosemide until eating and drinking well - monitor volume status - BMP at follow-up - Follow-up iron studies - Pending Labs: Pending Labs Order Current Status Blood Culture Preliminary result Blood Culture Preliminary result Blood Culture Preliminary result Blood Culture Preliminary result Discharge Medications: Done while pt still in hospital bed Medication List CHANGE how you take these medications furosemide 20 MG tablet Commonly known as: LASIX Take 1 Tablet (20 mg) by mouth daily. HOLD- Do not restart until Ma is eating and drinking well What changed: additional instructions lisinopril 2.5 MG tablet Commonly known as: ZESTRIL Take 1 Tablet (2.5 mg) by mouth daily. HOLD- Do not restart until Ma is eating and drinking well What changed: additional instructions CONTINUE taking these medications cephalexin 500 MG capsule Commonly known as: KEFLEX Take 1 Capsule (500 mg) by mouth two times a day for 14 days. clopidogrel 75 MG tablet Commonly known as: PLAVIX gabapentin 300 MG capsule Commonly known as: NEURONTIN metoprolol succinate 25 MG 24 hour release tablet Commonly known as: TOPROL XL nitroglycerin 0.4 MG sublingual tablet Commonly known as: NITROSTAT rosuvastatin 10 MG tablet Commonly known as: CRESTOR - Consults: none - Procedures and Surgeries: none Discharge Exam: BP 125/61 Pulse 63 Temp 98.1 ??F (36.7 ??C) (Oral) Resp 16 SpO2 99% General: Comfortable-appearing. Laying in bed. CV: RRR. Normal S1/S2. No murmurs appreciated. Lungs: Breathing comfortably on room air. Clear to auscultation bilaterally. Abd: Normal bowel sounds. Soft, nontender, nondistended. Ext: No lower extremity edema. Skin: No rashes or lesions appreciated. Disposition: home Code Status: Full code Follow up: Referrals (From admission, onward) Establish Primary Care Routine Significant Diagnostic Studies (imaging, labs, micro, etc), see EMR for full details: ROUTINE CT HEAD WO CON (09/01/2023) FINDINGS: INTRACRANIAL CONTENTS: No acute intracranial hemorrhage. No CT evidence of acute infarct. Sequelae of mild chronic microangiopathy. Mild cerebral volume loss without hydrocephalus. No extra-axial fluid collections. Patent basal cisterns. Empty sella turcica morphology. VISUALIZED ORBITS/SINUSES/MASTOIDS: Postoperative change of bilateral lenses, otherwise the orbits are unremarkable. The visualized paranasal sinuses and temporal bone structures are well-aerated. BONES/SOFT TISSUES: The calvarium and skull base are unremarkable. IMPRESSION: 1. Senescent changes and sequelae of chronic microangiopathy without acute intracranial abnormality. XR CHEST 2 VIEWS (09/01/23) IMPRESSION: Sternotomy. Mild low lung volumes. Heart size and pulmonary vascularity upper limits ofnormal. Tortuous ectatic calcified thoracic aorta. No focal airspace consolidations. Diffuse interstitial prominence throughout the lungs appears similar to prior exam. Findings may represent chroniclung markings. Billing based on time: Total time for the visit was 50 minutes including, but not limited to, tba-azvr-op-face time spent reviewing records, counseling, and coordination of care. Hilaria Armendariz MD [employer]PAR[employer] documented in this encounter Discharge Instructions * Discharge Instructions* Stella Patel RN - 09/01/2023 5:08 PM [employer]PARATION Fall Prevention Recommendations Follow therapy recommendations around equipment use and activity progression Remove trip hazards to keep pathways clear in the home Remove throw rugs Keep frequently used items in easy to reach places Use non-slip mats in the bathtub and on shower floors Improve lighting in your home in all areas Wear shoes or non-slip footwear inside the house [employer] PREPARATION documented in this encounter Medications at Time of Discharge Medication Sig Dispensed Refills Start Date End Date clopidogrel (PLAVIX) 75 MG tablet Take 1 Tablet (75 mg) by mouth daily. 08/11/2023 furosemide (LASIX) 20 MG tablet Take 1 [...] mouth daily. 08/11/2023 cephalexin (KEFLEX) 500 MG capsule Take 1 Capsule (500 mg) by mouth two times a day for 14 days. 28 Capsule 08/29/2023 09/12/2023 documented as of this encounter OR Notes * Scottie&P - Joselo Hearn MD - 09/01/2023 5:57 AM CST Hospital Medicine History and Physical Date of Service: 09/01/2023 Chief Complaint: Weakness, myalgias History of present illness: Patient's daughter is at the bedside and prefer to service under baster. Patient is pretty lethargicso most of the history was obtained from the daughter, chart review and discussion with the ED team. Sendy Moses is a 69-year-old woman with a known history of hypertension, HFpEF, hyperlipidemia, recentadmission from through 08/28 for severe sepsis secondary to complicated UTI with obstructing left ureteral stone with hydronephrosis status post stent placement on 08/26. Her post stent course was complicated by lactic acidosis and hypotension but she was fluid responsive. Her urine culture grewpansensitive E coli. She was treated with ceftriaxone and transitioned to oral Keflex x2 weeks. Sheis reportedly taking antibiotics at home. On 08/30 she has been feeling increasingly weak and has had generalized muscle aches. Reportedly had a fever at home. No abdominal pain. No nausea, vomiting or diarrhea. No cough. On initial presentation to the emergency department she was afebrile with stable vital signs. Her labs were reassuring. UA notable for hematuria and some pyuria. During her ED stay she became hypotensive and so received a fluid bolus. No clear source for infection except for possible ongoing urinary source. She is being admitted to observation for further evaluation management. Past Medical History: See above Past Surgical History: See above Family History: See above Social History: Social History Tobacco Use Smoking status: Not on file Smokeless tobacco: Not on file Substance Use Topics Alcohol use: Not on file Drug use: Not on file Current outpatient medications: Prior to Admission medications Medication Sig Start Date End Date Taking? Authorizing Provider cephalexin (KEFLEX) 500 MG capsule Take 1 Capsule (500 mg) by mouth two times a day for 14 days. 08/29/23 09/12/23 Shannan Bender PA-C clopidogrel (PLAVIX) 75 MG tablet Take 1 Tablet (75 mg) by mouth daily. 08/11/23 Unknown, Physician furosemide (LASIX) 20 MG tablet Take 1 Tablet (20 mg) by mouth daily. 08/11/23 Unknown, Physician gabapentin (NEURONTIN) 300 MG capsule Take 1 Capsule (300 mg) by mouth three times a day. 08/11/23 Unknown, Physician lisinopril (ZESTRIL) 2.5 MG tablet Take 1 Tablet (2.5 mg) by mouth daily. 08/11/23 Unknown, Physician metoprolol succinate (TOPROL XL) 25 MG 24 hour release tablet Take 0.5 Tablets (12.5 mg) by mouth daily. Unknown, Physician nitroglycerin (NITROSTAT) 0.[address] 1 Tablet (0.4 mg) under tongue every 5 minutes as needed for Chest Pain. 08/11/23 Unknown, Physician rosuvastatin (CRESTOR) 10 MG tablet Take 1 Tablet (10 mg) by mouth daily. 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 Procedure Abnormality Status --------- ------ 2019 Novel Coronavirus ...[[id number]] Final result Influenza A and B by PCR[[id number]] Normal Final result RSV RNA, Molecular Dete...[[id number]] Normal Final result Please view results for these tests on the individual orders. 2019 Novel Coronavirus (COVID-19) Result Value Ref Range COVID-19 Interpretation Not Detected Not Detected Source Nasopharyngeal swab Narrative Test performed by real-time PCR. This test has been authorized by the FDA under an Emergency Use Authorization (EUA) for use by authorized laboratories. Influenza A and B by PCR Result Value Ref Range INFLUENZA A MOLECULAR Not Detected Not Detected INFLUENZA B MOLECULAR Not Detected Not Detected Narrative Methodology: Qualitative real-time PCR assay to detect the Influenza type A and type B viral RNA RSV RNA, Molecular Detection Result Value Ref Range RSV by PCR Not Detected Not Detected Narrative Method: Qualitative real-time PCR assay to detect RSV Viral RNA. Complete Blood Count-No Diff Result Value Ref Range WBC 8.3 3.5 - 10.5 x10(9)/L RBC 4.81 3.90 - 5.03 x10(12)/L Hemoglobin 11.9 (L) 12.0 - 15.5 g/dL HCT 38.7 34.9 - 44.5 % MCV 80.5 80.0 - 100.0 fL MCH 24.7 (L) 27.6 - 33.3 pg MCHC 30.7 (L) 31.5 - 35.2 g/dL RDW 18.1 (H) 11.9 - 15.5 % Platelets 179 150 - 450 x10(9)/L Automated NRBC 0 <=0 /100 WBC Basic Metabolic Panel Result Value Ref Range Sodium 135 (L) 136 - 145 mmol/L Potassium 3.8 3.5 - 5.1 mmol/L Chloride 102 98 - 109 mmol/L CO2 20 20 - 29 mmol/L Anion Gap 13 7 - 16 mmol/L Calcium 9.3 8.4 - 10.4 mg/dL BUN 13 7 - 26 mg/dL Creatinine 0.74 0.55 - 1.02 mg/dL Glucose 124 (H) 70 - 100 mg/dL GFR, Estimated >60 >60 mL/min/1.73m2 UA Conditional UC: Clean Catch Specimen: Clean Catch; Urine Result Value Ref Range Urine Culture Comment Urinalysis results meet criteria for reflex, culture performed. Urine Color Yellow Urine Clarity Turbid (A) Clear Specific [place], Urine 1.016 <1.030 PH Urine 5.5 5.0 - 8.0 Protein, Urine Qual (mg/dL) 50 (A) Negative, 10 , 20 Glucose Urine Qual (mg/dL) Normal (Negative) Normal (Negative), 30 , 50 Ketones, Urine (mg/dL) Negative Negative, Trace Urobilinogen, Urine (EU/dL) Normal (Negative) Normal (Negative) Bilirubin Urine (mg/dL) Negative Negative Blood, Urine (mg/dL) OVER (>1.0, Large) (A) Negative, 0.03 (Trace) Nitrite Urine Negative Negative Leukocyte Esterase, Urine (Ant/uL) 250 (Moderate) (A) Negative, 25 (Trace) Red Blood Cells >180 (H) 0 - 3 /HPF White Blood Cells 35 (H) 0 - 5 /HPF Bacteria Occasional (A) None Seen /HPF Squamous Epithelial Cells Occasional None Seen, Occasional, Few /HPF Mucus Present (A) None Seen /HPF Hyaline Casts 5 (H) <=2 /LPF Urine Source Clean Catch Narrative The qualitative interpretive guidance provided (e.g., small, moderate, large) is intended to aid inquantitative result interpretation. It is not itself an FDA- cleared test result. ECG: Per my interpretation, SR Imaging: CXR: Per my interpretation, no new opacities, effusions or evidence of pneumothorax Assessment and Plan: Fever, myalgias and hypotension - concern for evolving sepsis Recent sepsis 2/2 complicated UTI (nix sensitive E. Coli) with obstructing left ureteral stone s/p stent 3/ Concern for ongoing urinary source. Bacteremia is also a possibility. Her COVID/RSV/influenza is negative. No other source of infection identified at this time. Developed hypotension in the emergencydepartment and she is currently receiving a fluid bolus. -reassess hemodynamics after fluid bolus (ED ordered 500ml and I ordered an additional 500ml for a total of 1L) -check cortisol and procalcitonin -received ceftriaxone IV in the emergency department - day team to reassess need for additional doses -follow-up urine and blood cultures -with normal renal function and no flank pain, we will defer imaging for now but low threshold to consider reassessing stent position/function if clinically worsens -hold furosemide, lisinopril, metoprolol Elevated troponin: She denies any chest pain. ECG with no significant acute ischemic changes. Likely demand ischemia in the setting of possible infection. Repeat troponin pending. Chronic medical problems: Coronary artery disease status post CABG and stenting: Continue Plavix Hyperlipidemia: Continue statin Neuropathy: Continue gabapentin FEN/GI - regular diet Prophylaxis - JAZZ < 4, ambulate with the assistance Lines/Tubes/Draines - PIV CODE STATUS - FULL Disposition: Observation Billing based on: Complexity This note created using speech-recognition software and may contain unintended word substitutions. Joselo Hearn MD [facility] Medicine. [facility] PREPARATION documented in this encounter ED Notes * Jaquan Kimbrough RN - 09/01/2023 7:17 AM CST Report given to Garfield KAM [employer] PREPARATION * Alberta Pressley MD - 09/01/2023 3:24 AM CST [facility] Emergency Medicine Visit Note Chief Complaint: LETHARGY (/) and INFLUENZA LIKE ILLNESS HPI Sendy Moses is a 77 y.o. female with CAD s/p CABGx3, HFpEF, recent hospitalization for L urteral stones/p stenting 08/26 w/ hospitalization c/b severe sepsis, who presented to the ED with concerns of fever, generalized body aches. Patient was recently admitted to [facility] from - 08/28 for obstructive left ureteral stone, with severe sepsis secondary to complicated UTI. Patient underwent stent placement 0 3/0 1 without complication. She was treated with ceftriaxone; UCx grew pansensitive E coli and patient was narrowed to Keflex prior to discharge. Patient was doing well after discharge. However, today, patient developed generalized body aches and fever at home. She has had some mild cough symptoms, no other URI symptoms. No focal chest pain orabdominal pain, but has been complaining of generalized pain throughout body. She has had decreasedurinary frequency, family attributing this to less PO intake over the past few days. No known sick contacts at home with similar symptoms. Due to language barrier, a family member acted as under baster per patient request and was present during the history-taking, physical exam, and subsequent discussion with this patient. Triage Vitals [08/31/23 2351] Temp 97.8 ??F (36.6 ??C) Temp src Oral Pulse 72 Resp 18 BP 101/55 SpO2 98 % Physical Exam Constitutional: Appears uncomfortable, laying in bed. HEENT: Face flushed. EOMI, PERRL. No scleral icterus, conjunctiva normal. Mildly dry mucous membranes. CV: Regular rate and rhythm. No murmurs, rubs, or gallops. Pulm/Chest: Effort normal, no increased work of breathing. Symmetric chest rise. Lungs clear to ausculation bilaterally. No wheezes, rales, or rhonchi. Abdominal: Soft, non-distended. No tenderness to palpation. No rebound or guarding. MSK: Normal spontaneous ROM of bilateral upper and lower extremities. No peripheral edema. Skin: Skin is warm and dry. No rash on exposed skin. No pallor. MDM: Presenting for evaluation of fevers, influenza-like illness symptoms. Vital signs reassuring and within normal reference range. Differential includes viral URI (COVID vs other viral etiology), pneumonia, urinary tract infection, gastroenteritis, other intra-abdominal infection, etc. Given the patient's age, clinical appearance, duration of symptoms, and co- morbidities, a CXR was indicated. Abdominal exam benign with no focal tenderness or peritoneal signs. Given the lack of localized/focal abdominal pain, this is less likely to be appendicitis, gallbladder pathology, or other surgical process. Will initiate workup with laboratory evaluation and ECG. Alberta Pressley MD ED Course as of 09/01/23 0938 WedSep 01, 2023 0430 XR Chest 2 Views IMPRESSION: Sternotomy. Mild low lung volumes. Heart size and pulmonary vascularity upper limits ofnormal. Tortuous ectatic calcified thoracic aorta. No focal airspace consolidations. Diffuse interstitial prominence throughout the lungs appears similar to prior exam. Findings may represent chroniclung markings. [] [id number] ATTENDING: I personally saw the patient, performed damian elements of the visit, and supervised patient care with the wind farm operations manager. MDM: body aches, weakness. Recent hospitalization for infected stone, s/p stent placement. + cough, CXR negative for pneumonia. Labs without evidence of leukocytosis. No evidence of bacterial pneumonia. Awaiting U/A, will reassess, anticipate discharge . [KB] [id number] Patient hypotensive to 80s/40s, given 500 cc bolus of NS for fluid resuscitation. UA findings expected, though with clinical presentation and history, will initiate zosyn in ED. Case was discussed with the hospital medicine team who agrees to this observation admission given need for further wo rkup. Patient is medically stable for transport at this time. [] [id number] Troponin I(!): 0.13 Troponin elevated to 0.13 (drawn at 00:00), repeat ECG and troponin ordered. ASA given. [] 0706 Sign out received. Assumed care at this time. Talked on admitted to medicine significant cardiac history (HFpEF); had recent admission for urinary sepsis/ureteral stent. Now returning with NEERAJ sx's. Briefly hypotensive here. Troponin is now elevated. Delta trop is pending. [DF] 0718 Repeat ECG shows similar but slightly more pronounced inferolateral ST depression. Awaiting delta troponin, admission. [KB] 0937 Troponin I(!): 0.08 Downtrending [DF] ED Course User Index [] Alberta Pressley MD [DF] Lia Liang PA-C [KB] Amaya Driscoll MD Clinical Impressions as of 09/01/23 0938 Hypotension, unspecified hypotension type Influenza-like illness [facility] documented in this encounter Plan of Treatment Scheduled Referrals Name Type Priority Associated Diagnoses Orde r Schedule Establish Primary Care Referral Routine Hypotension due to hypovolemia Ordered: 09/01/2023 documented as of this encounter Procedures Procedure Name Priority Date/Time Associated Diagnosis Comments CT HEAD WO IV CONT STAT 09/01/2023 11 :21 AM [facility] 45787 LACTATE, WHOLE BLOOD Routine 09/01/2023 10:27 AM [facility] 59990 ELECTROCARDIOGRAM TRACING STAT 09/01/2023 6:49 AM [facility] TROPONIN I STAT 09/01/2023 6:45 AM [facility] FERRITIN Add-On 09/01/2023 6:45 AM [facility] IRON PROFILE (IRON,TIBC,%SAT.(CALC)) Add-On 09/01/2023 6:45 AM [facility] BLOOD CULTURE Routine 09/01/2023 6:25 AM [facility] BLOOD CULTURE Routine 09/01/2023 6:25 AM [facility] BLOOD CULTURE Routine 09/01/2023 6:25 AM [facility] BLOOD CULTURE Routine 09/01/2023 6:25 AM [facility] 62157 LACTATE, WHOLE BLOOD Routine 09/01/2023 6:19 AM [facility] URINE CULTURE STAT 09/01/2023 5:02 AM [facility] UA CONDITIONAL UC STAT 09/01/2023 5:0 2 AM [facility] XR CHEST 2 VIEWS STAT 09/01/2023 4:10 AM [facility] ECG-ROUTINE 12 LEAD; INTRPT & REPRT STAT 09/01/2023 12:12 AM [facility] PROCALCITONIN Add-On 09/01/2023 12:00 AM [facility] BASIC METABOLIC PANEL STAT 09/01/2023 12:00 AM [facility] TROPONIN I STAT Add-On 09/01/2023 12:00 AM [facility] COMPLETE BLOOD COUNT-NO DIFF STAT 09/01/2023 12:00 AM [facility] CORTISOL Add-On 09/01/2023 12:00 AM [facility] RSV, MOLECULAR DETECTION STAT 024 11:59 PM [facility] INFLUENZA VIRUS A AND B, MOLECULAR DETECTION STAT 08/31/2023 11:59 PM [facility] 2019 NOVEL CORONAVIRUS STAT 11:59 PM [facility] COVID/INFLUENZA A&B/RSV STAT 08/31/19 11:59 PM [facility] documented in this encounter Results * CT Head WO IV Cont (09/01/2023 11:21 AM [facility]) Anatomical Region Laterality Modality Head Computed Tomogra phy 09/01/2023 11:2 1 AM [facility] Narrative 09/01/2023 11:33 AM [facility] EXAM: CT HEAD WO IV CONT LOCATION: [facility] DATE/TIME: 09/01/2023 11:21 AM [facility] INDICATION: Lower extremity numbness COMPARISON: None available [...] LOCATION: [facility] DATE/TIME: 09/01/2023 11:21 AM [facility] INDICATION: Lower extremity numbness COMPARISON: None available [...] Lactate Panel, Venous POCT (09/01/2023 10:27 AM [facility]) Lactate, Whole Blood 1.27 0.50 - 2.00 mmol/L 09/01/2023 2:32 PM [facility] PO2, Venous 18(L) 30 - 50 mmHg 09/01/2023 2:32 PM [facility] Performing Location [facility] ED B 09/01/2023 2:32 PM [facility] Blood 09/01/2023 10:2 7 AM [facility] 09/01/2023 2:32 PM [facility] Nathan Wilson MD LAB_1 Performing Organization Address City/State/[facility] Co de Phone Number [address] * ECG 12-Lead STAT (09/01/2023 6:49 AM [facility]) Ventricular Rate 56 BPM MUSE G[facility] Atrial Rate 56 BPM MUSE [facility] P-R Interval 196 ms MUSE GHP QRS Duration 148 ms MUSE GHP QT 506 ms MUSE GHP QTc 488 ms MUSE GHP P [place] 102 degrees MUSE GHP R [place] 46 degrees MUSE GHP T [place] -27 degrees MUSE GHP 09/01/2023 6:49 AM [facility] Narrative M[facility] - 09/01/2023 9:14 AM [facility] Poor data quality, interpretation may be adversely affected Sinus bradycardia Right bundle branch block T wave abnormality, consider lateral ischemia Abnormal ECG When compared with ECG of 01-SEP-2023 00:12, No significant change was found Confirmed by Charissa Marinelli ([id number]) on 09/01/2023 9:14:31 AM Procedure Note Charissa Marinelli MD - 09/01/2023 Poor data quality, interpretation may be adversely affected Sinus bradycardia Right bundle branch block T wave abnormality, consider lateral ischemia Abnormal ECG When compared with ECG of 01-SEP-2023 00:12, No significant change was found Confirmed by Charissa Marinelli ([id number]) on 09/01/2023 9:14:31 AM Amaya Driscoll MD EKG Performing Organization Address City/[facility]/ZIP Co de Phone Number [facility] [address] [place] [address] * FERRITIN (09/01/2023 6:45 AM [facility]) Ferritin 89 9 - 204 ng/mL 09/01/2023 2:27 PM [facility] Blood Venipuncture / Unknown 09/01/2023 6:45 AM [facility] 09/01/2023 7:07 AM [facility] Hilaria Armendariz MD LAB_1 Performing Organization Address [facility] de Phone Number [address] * (ABNORMAL) IRON PROFILE (IRON,TIBC,%SAT.(CALC)) (09/01/2023 6:45 AM [facility]) [facility] Iron 39(L) 50 - 170 mcg/dL 09/01/2023 2:09 PM [facility] Transferrin 288 180 - 382 mg/dL 09/01/2023 2:09 PM [facility] TIBC, Calculated 360 240 - 450 mcg/dL 09/01/2023 2:09 PM [facility] % Saturation, Calculated 11 10 - 50 % 09/01/2023 2:09 PM [facility] TIBC Interpretation Low iron, normal TIBC, possible iron deficiency. 09/01/2023 2:09 PM [facility] Blood Venipuncture / Unknown 09/01/2023 6:45 AM [facility] 09/01/2023 7:07 AM [facility] Hilaria Armendariz MD LAB_1 Performing Organization Address [facility] Co de Phone Number [address] * (ABNORMAL) Troponin I (09/01/2023 6:45 AM [facility]) Troponin I 0.08(H) 0.00 - 0.03 ng/mL 09/01/2023 7:44 AM [facility] Blood Venipuncture / Unknown 09/01/2023 6:45 AM [facility] 09/01/2023 7:07 AM [facility] Amaya Driscoll MD LAB_1 Performing Organization Address [facility] Co de Phone Number [address] * Blood Culture (09/01/2023 6:25 AM [facility]) Blood Culture No Growth at 5 Days RH LAB ETEST METHOD 09/06/2023 8:01 AM [facility] Blood (Arm, left) Venipuncture / Unknown 09/01/2023 6:25 AM [facility] 09/01/2023 6:30 AM [facility] Amaya Driscoll MD LAB_1 Performing Organization Address [facility] Co va Phone Number [address] * Blood Culture (09/01/2023 6:25 AM [facility]) Blood Culture No Growth at 5 Days RH LAB ETEST METHOD 09/06/2023 8:01 AM [facility] Blood (Line Start) Venipuncture / Unknown 09/01/2023 6:25 AM [facility] 09/01/2023 6:30 AM [facility] Amaya Driscoll MD LAB_1 Performing Organization Address [facility] Co de Phone Number [address] * Lactate Panel, Venous POCT (09/01/2023 6:19 AM [facility]) Lactate, Whole Blood 0.93 0.50 - 2.00 mmol/L 09/01/2023 10:01 AM [facility] PO2, Venous 34 30 - 50 mmHg 09/01/2023 10:01 AM [facility] Performing Location [facility] ED B 09/01/2023 10:01 AM [facility] Blood 09/01/2023 6:19 AM [facility] 09/01/2023 10:01 AM [facility] Amaya Driscoll MD LAB_[address] * Urine Culture (09/01/2023 5:02 AM [facility]) Urine Culture No Growth After 1 Day 09/02/2023 11:52 AM [facility] Urine URINE SPECIMEN COLLECTION, CLEAN CATCH / Unknown Non-blood Collection / Unknown 09/01/2023 5:02 AM [facility] 09/01/2023 5:42 AM [facility] Amaya Driscoll MD LAB_1 Performing Organization Address [facility] Co de Phone Number [address] * (ABNORMAL) UA Conditional UC: Clean Catch (09/01/2023 5:02 AM [facility]) Urine Culture Comment Urinalysis results meet criteria for reflex, culture performed. 09/01/2023 5:44 AM [facility] Urine Color Yellow 09/01/2023 5:44 AM [facility] Urine Clarity Turbid(A) Clear 09/01/2023 5:44 AM [facility] Specific [place], Urine 1.016 <1.030 09/01/2023 5:44 AM [facility] PH Urine 5.5 5.0 - 8.0 09/01/2023 5:44 AM [facility] Protein, Urine Qual (mg/dL) 50(A) Negative, 10 , 20 09/01/2023 5:44 AM [facility] Glucose Urine Qual (mg/dL) Normal (Negative) Normal (Negative), 30 , 50 09/01/2023 5:44 AM [facility] Ketones, Urine (mg/dL) Negative Negative, Trace 09/01/2023 5:44 AM [facility] Urobilinogen, Urine (EU/dL) Normal (Negative) Normal (Negative) 09/01/2023 5:44 AM [facility] Bilirubin Urine (mg/dL) Negative Negative 09/01/2023 5:44 AM [facility] Blood, Urine (mg/dL) OVER (>1.0, Large)(A) Negative, 0.03 (Trace) 09/01/2023 5:44 AM [facility] Nitrite Urine Negative Negative 09/01/2023 5:44 AM [facility] Leukocyte Esterase, Urine (Ant/uL) 250 (Moderate)(A) Negative, 25 (Trace) 09/01/2023 5:44 AM [facility] Red Blood Cells >180(H) 0 - 3 /HPF 09/01/2023 5:44 AM [facility] White Blood Cells 35(H) 0 - 5 /HPF 09/01/2023 5:44 AM [facility] Bacteria Occasional(A) None Seen /HPF 09/01/2023 5:44 AM [facility] Squamous Epithelial Cells Occasional None Seen, Occasional, Few /HPF 09/01/2023 5:44 AM [facility] Mucus Present(A) None Seen /HPF 09/01/2023 5:44 AM [facility] Hyaline Casts 5(H) <=2 /LPF 09/01/2023 5:44 AM [facility] Urine Source Clean Catch 09/01/2023 5:44 AM [facility] Urine URINE SPECIMEN COLLECTION, CLEAN CATCH / Unknown Non-blood Collection / Unknown 09/01/2023 5:02 AM [facility] 09/01/2023 5:07 AM [facility] Narrative [facility] - 09/01/2023 5:44 AM [facility] The qualitative interpretive guidance provided (e.g., small, moderate, large) is intended to aid in quantitative result interpretation. It is not itself an FDA-cleared test result. Amaya Driscoll MD LAB_[address] [address], [facility] * XR Chest 2 Views (09/01/2023 4:10 AM [facility]) Anatomical Region Laterality Modality Chest, Lung Computed Radiogr aphy 09/01/2023 4:10 AM [facility] Narrative 09/01/2023 4:24 AM [facility] EXAM: XR CHEST 2 VIEWS LOCATION: [facility] DATE: 09/01/2023 INDICATION: Cough, body aches, [...] markings. Amaya Driscoll MD RAD GD * ECG 12-Lead (09/01/2023 12:12 AM [facility]) Ventricular Rate 71 BPM MUSE GHP Atrial Rate 71 BPM MUSE GHP P-R Interval 164 ms MUSE GHP QRS Duration 144 ms MUSE GHP QT 462 ms MUSE GHP QTc 502 ms MUSE GHP P [place] 26 degrees MUSE GHP R [place] -32 degrees MUSE GHP T [place] 8 degrees MUSE GHP 09/01/2023 12:1 2 AM [facility] Narrative [facility] - 09/01/2023 9:22 AM [facility] Poor data quality, interpretation may be adversely affected Sinus rhythm Left axis deviation Right bundle branch block Abnormal ECG When compared with ECG of 26-AUG-2023 20:49, QRS axis Shifted left Confirmed by Opal Sarabia ([id number]) on 09/01/2023 9:22:14 AM Procedure Note Opal Sarabia MD - 09/01/2023 Poor data quality, interpretation may be adversely affected Sinus rhythm Left axis deviation Right bundle branch block Abnormal ECG When compared with ECG of 26-AUG-2023 20:49, QRS axis Shifted left Confirmed by Opal Sarabia ([id number]) on 09/01/2023 9:22:14 AM Jayde Lucio MD EKG [facility] [address] [place] [address] * Procalcitonin (09/01/2023 12:00 AM [facility]) Procalcitonin 0.06 <=0.24 ng/mL 09/01/2023 7:38 AM [facility] Blood Venipuncture / Unknown 09/01/2023 12:00 AM [facility] 09/01/2023 12:02 AM [facility] 09/01/2023 7:38 AM [facility] Differential Diagnosis of Lower Respiratory Tract Infection [...] Joselo Hearn MD LAB_1 Performing Organization Address City/[facility]/ZIP Co de Phone Number [address] * Cortisol (09/01/2023 12:00 AM [facility]) Cortisol 12.2 2.9 - 19.4 mcg/dL 09/01/2023 7:11 AM [facility] Blood Venipuncture / Unknown 09/01/2023 12:00 AM [facility] 09/01/2023 12:02 AM [facility] - 09/01/2023 7:11 AM [facility] Expected values AM (before 10am): 3.7-19.4 mcg/dL PM (after 5pm): 2.9-17.3 mcg/dL Joselo Hearn MD LAB_1 Performing Organization Address [facility]/ZIP Co de Phone Number [address] * (ABNORMAL) Troponin I (09/01/2023 12:00 AM [facility]) Pathologist [facility] Troponin I 0.13(H) 0.00 - 0.03 ng/mL 09/01/2023 6:25 AM [facility] Blood Venipuncture / Unknown 09/01/2023 12:00 AM [facility] 09/01/2023 12:02 AM [facility] Amaya Driscoll MD LAB_1 Performing Organization Address [facility] Co de Phone Number [address] * (ABNORMAL) Basic Metabolic Panel (09/01/2023 12:00 AM [facility]) Sodium 135(L) 136 - 145 mmol/L 09/01/2023 12:28 AM [facility] Potassium 3.8 3.5 - 5.1 mmol/L 09/01/2023 12:28 AM [facility] Comment:Specimen slightly he molyzed. Hemolysis may affect result. Chloride 102 98 - 109 mmol/L 09/01/2023 12:28 AM [facility] CO2 20 20 - 29 mmol/L 09/01/2023 12:28 AM [facility] Anion Gap 13 7 - 16 mmol/L 09/01/2023 12:28 AM [facility] Calcium 9.3 8.4 - 10.4 mg/dL 09/01/2023 12:28 AM [facility] BUN 13 7 - 26 mg/dL 09/01/2023 12:28 AM [facility] Creatinine 0.74 0.55 - 1.02 mg/dL 09/01/2023 12:28 AM [facility] Glucose 124(H) 70 - 100 mg/dL 09/01/2023 12:28 AM [facility] Comment:The given reference range is for the fasting state. Non-fasting reference range for glucose is 70 - 180 mg/dL. GFR, Estimated >60 >60 mL/min/1.7 3m2 09/01/2023 12:28 AM [facility] Blood Venipuncture / Unknown 09/01/2023 12:00 AM [facility] 09/01/2023 12:02 AM [facility] Jayde Lucio MD LAB_1 Performing Organization Address City/State/[facility] [place] [address], [facility] * (ABNORMAL) Complete Blood Count-No Diff (09/01/2023 12:00 AM [facility]) WBC 8.3 3.5 - 10.5 x10(9)/L 09/01/2023 12:05 AM [facility] RBC 4.81 3.90 - 5.03 x10(12)/L 09/01/2023 12:05 AM [facility] Hemoglobin 11.9(L) 12.0 - 15.5 g/dL 09/01/2023 12:05 AM [facility] HCT 38.7 34.9 - 44.5 % 09/01/2023 12:05 AM [facility] MCV 80.5 80.0 - 100.0 fL 09/01/2023 12:05 AM [facility] MCH 24.7(L) 27.6 - 33.3 pg 09/01/2023 12:05 AM [facility] MCHC 30.7(L) 31.5 - 35.2 g/dL 09/01/2023 12:05 AM [facility] RDW 18.1(H) 11.9 - 15.5 % 09/01/2023 12:05 AM [facility] Platelets 179 150 - 450 x10(9)/L 09/01/2023 12:05 AM [facility] Automated NRBC 0 <=0 /100 WBC 09/01/2023 12:05 AM [facility] Blood Venipuncture / Unknown 09/01/2023 12:00 AM [facility] 09/01/2023 12:02 AM [facility] Jayde Lucio MD LAB_1 Performing Organization Address [facility]/ZIP Co de Phone Number [address] * RSV RNA, Molecular Detection (08/31/2023 11:59 PM [facility]) Pathologist [facility] RSV by PCR Not Detected Not Detected 09/01/2023 12:44 AM [facility] Swab (Source Required) (Nasopharyngeal swab) Non-blood Collection / Unknown 08/31/2023 11:59 PM [facility] 09/01/2023 12:01 AM [facility] 09/01/2023 12:44 AM [facility] Method: Qualitative real-time PCR assay to detect RSV Viral RNA. Jayde Lucio MD LAB_1 Performing Organization Address [facility] Co de Phone Number [address] * Influenza A and B by PCR (08/31/2023 11:59 PM [facility]) [facility] INFLUENZA A MOLECULAR Not Detected Not Detected 09/01/2023 12:44 AM [facility] INFLUENZA B MOLECULAR Not Detected Not Detected 09/01/2023 12:44 AM [facility] Swab (Source Required) (Nasopharyngeal swab) Non-blood Collection / Unknown 08/31/2023 11:59 PM [facility] 09/01/2023 12:01 AM [facility] - 09/01/2023 12:44 AM [facility] Methodology: ??Qualitative real-time PCR assay to detect the Influenza type A and type B viral RNA Jayde Lucio MD LAB_1 Performing Organization Address [facility]/ZIP Co de Phone Number [address] * 2019 Novel Coronavirus (COVID-19) (08/31/2023 11:59 PM [facility]) COVID-19 Interpretation Not Detected Not Detected 09/01/2023 12:44 AM [facility] Source Nasopharyngeal swab 09/01/2023 12:44 AM [facility] Swab (Source Required) (Nasopharyngeal swab) Non-blood Collection / Unknown 08/31/2023 11:59 PM [facility] 09/01/2023 12:01 AM [facility] - 09/01/2023 12:44 AM [facility] Test performed by real-time PCR. This test has been authorized by the FDA under an Emergency Use Authorization (EUA) for use by authorized laboratories. Jayde Lucio MD LAB_1 [place] [address], [facility] documented in this encounter Visit Diagnoses Diagnosis Hypotension- Primary Hypotension, unspecified Hypotension, unspecified hypotension type Influenza-like illness Influenza with other respiratory manifestations Hypotension due to hypovolemia Elevated troponin Other abnormal blood chemistry Weakness Other malaise and fatigue Myalgias * Plan of Care - Stella Patel RN - 09/01/2023 5:23 PM CST [facility] Discharge Note - Nursing Admission Date/Time: 09/01/2023 3:22 AM Attending MD: Hilaria Armendariz MD Patient discharged: to Home. Discharge Date: 09/01/2023 Discharge Time: 5:25 PM Patient accompanied by: relative. Transported by: Wheelchair [...] required) No Patients general condition on discharge: Alert and oriented, VSS, SBP in the 120s, on room air, SBAto Ax1, very happy to be discharging All medical devices (telemetry/IV/etc) unless otherwise ordered, have been removed and stored: N/A --- End of Report --- [facility] * Triage Assessment Note - Arminda Rivera RN - 08/31/2023 11:50 PM [facility] Pt comes in with bodyaches and weakness that started earlier today. Pt denies being around anyone that has been ill. Pt was just admitted to the hospital about 3 days ago. Pt arrives with visitor. Dashawn and breathing unlabored. [facility] documented in this encounter Administered Medications Inactive Administered Medications - up to 3 most recent administrations Medication Order MAR Action Action Date Dose Rate Site acetaminophen (TYLENOL) tablet 650 mg 650 mg, Oral, ONCE, On Wed09/01/23 at 0400, For 1 dose Given 09/01/2023 4:22 AM [facility] 650 mg aspirin chewable tablet 324 mg 324 mg, Oral, ONCE, On Wed09/01/23 at 0715, For 1 dose Given 09/01/2023 6:59 AM [facility] 324 mg cefTRIAXone (ROCEPHIN) injection 2 g 2 g, Intravenous, ONCE, On Wed09/01/23 at 0630, For 1 dose, Indications: Cystitis Given 09/01/2023 6:30 AM [facility] 2 g cephalexin (KEFLEX) capsule 500 mg 500 mg, Oral, Q12H (NON-STND), First dose on Julianna 09/02/23 at 0600, Indications: Cystitis clopidogrel (PLAVIX) tablet 75 mg 75 mg, Oral, DAILY, First dose on Wed09/01/23 at 1115, Until Discontinued Given 09/01/2023 11:10 AM [facility] 75 mg gabapentin (NEURONTIN) capsule 300 mg 300 mg, Oral, TID, First dose on Wed09/01/23 at 1400, Until Discontinued Given 09/01/2023 4:02 PM [facility] 300 mg lactated ringers IV bolus 1,000 mL 1,000 mL, Intravenous, Administer over 2 Hours, ONCE, On Wed09/01/23 at 1115, For 1 dose Started 09/01/2023 11:10 AM [facility] 1,000 mL lactated ringers IV bolus 500 mL 500 mL, Intravenous, Administer over 0.5 Hours, ONCE, On Wed09/01/23 at 0700, For 1 dose Started 09/01/2023 6:46 AM [facility] 500 mL sodium chloride 0.9% bolus 500 mL 500 mL, Intravenous, Administer over 30 Minutes, ONCE, On Wed09/01/23 at 0615, For 1 dose Started 09/01/2023 6:00 AM [facility] 500 mL documented in this encounter Active and Recently Administered Medications Times are shown in [facility]. Scheduled Medication Order 08/30/2023 08/31/2023 09/01/2023 acetaminophen (TYLENOL) tablet 650 mg (COMPLETED) 650 mg, Oral, ONCE, On Wed09/01/23 at 0400, For 1 dose 0422 (Given - Provid er: Jaquan Kimbrough RN) aspirin chewable tablet 324 mg (COMPLETED) 324 mg, Oral, ONCE, On Wed09/01/23 at 0715, For 1 dose 0659 (Given - Provid er: Jaquan Kimbrough RN) cefTRIAXone (ROCEPHIN) injection 2 g (COMPLETED) 2 g, Intravenous, ONCE, On Wed09/01/23 at 0630, For 1 dose, Indications: Cystitis 0630 (Given - Provid er: Jaquan Kimbrough RN) cephalexin (KEFLEX) capsule 500 mg 500 mg, Oral, Q12H (NON-STND), First dose on Julianna 09/02/23 at 0600, Indications: Cystitis clopidogrel (PLAVIX) tablet 75 mg 75 mg, Oral, DAILY, First dose on Wed09/01/23 at 1115, Until Discontinued 1110 (Given - Provid er: Garfield Ramires RN) gabapentin (NEURONTIN) capsule 300 mg 300 mg, Oral, TID, First dose on Wed09/01/23 at 1400, Until Discontinued 1602 (Given - Provid er: Stella Patel RN - Comment: not verified on time per previous RN) lactated ringers IV bolus 1,000 mL (COMPLETED) 1,000 mL, Intravenous, Administer over 2 Hours, ONCE, On Wed09/01/23 at 1115, For 1 dose 1110 (Started - Prov ider: Garfield Ramires RN)[id number] (Infused - Provider: Garfield Ramires, NEGIN) lactated ringers IV bolus 500 mL (COMPLETED) 500 mL, Intravenous, Administer over 0.5 Hours, ONCE, On Wed09/01/23 at 0700, For 1 dose 0646 (Started - Prov ider: Jaquan Kimbrough RN)0734 (Infused - Provider: Lore Hyde, NEGIN) rosuvastatin (CRESTOR) tablet 10 mg 10 mg, Oral, DAILY - 1999, First dose on Wed09/01/23 at 2000, Until Discontinued sodium chloride 0.9% bolus 500 mL (COMPLETED) 500 mL, Intravenous, Administer over 30 Minutes, ONCE, On Wed09/01/23 at 0615, For 1 dose 0600 (Started - Prov ider: Jaquan Kimbrough RN)[id number] (Infused - Provider: Jaquan Kimbrough RN) PRN Medication Order 08/30/2023 08/31/2023 09/01/2023 benzocaine-menthol (Chloraseptic) lozenge 1 Lozenge 1 Lozenge, Oral, Q2H PRN, Throat Pain, Cough, Starting on Wed09/01/23 at 1057, Until Wed09/01/23 at 2031 calcium carbonate (TUMS) chewable tablet 1,000 mg 1,000 mg, Oral, Q4H PRN, Heartburn, Upset Stomach, Starting on Wed09/01/23 at 1057, Until Wed09/01/23 at 2031, For indigestion/upset stomach melatonin tablet 6 mg 6 mg, Oral, HS PRN, Sedation, Starting on Wed09/01/23 at 1057, Until Wed09/01/23 at 2031 documented in this encounter Care Teams Steam Table Attendant Relationship Specialty Start Date End Date No Primary/Referring, Phy PCP - General 08/26/23 documented as of this encounter
--- OUTSIDE RECORDS SUMMARY | 2023-11-04 22:49 | XMS_ITS | Encounter Summary ---
Author Name Unknown Organization [facility] Address [address] [address] Care Team Providers Care Tile Helper Name Role Phone No Primary/Referring, Phy Primary Care Provider Unavailable Reason for Referral * Procedure/Equipment (Routine) - Incomplete Specialty Diagnoses / Procedures Referred By Alfonso kililan Referred To Contact Diagnoses Left ureteral stone Procedures Case Request OR - Urology Surgery: Thulium LASER CYSTOSCOPIC REMOVAL URETERAL STONE WITH PLACEMENT URETERAL STENT Mira Price MD [address] [place] [id number] Referral ID Status Reason Start Date Expiration Date V isits Requested Visits Authorized [id number] Incomplete 08/27/2023 11/25/2024 1 1 HELPER Encounter Details Date Type Department Care Team (Late st Contact Info) Description 08/27/2023 Prep for Surgery UROLOGY IP SERVICE [address] [place] [id number] Mira Price MD [address] [place], [place] [id number] Left ureteral stone (Primary Dx) Social History Tobacco Use Types Packs/Day Years Used Date Smoking Tobacco: Never Assessed Sex and Gender Information Value Date Recorded Sex Assigned at Not on file Gender Identity Not on file Sexual Orientation Not on file documented as of this encounter Plan of Treatment Not on file documented as of this encounter Visit Diagnoses Diagnosis Left ureteral stone- Primary documented in this encounter Care Teams Tile Helper Relationship Specialty Start Date End Date No Primary/Referring, Phy PCP - General 08/26/23 documented as of this encounter
--- OUTSIDE RECORDS SUMMARY | 2023-11-04 22:49 | XMS_ITS | Encounter Summary ---
Author Name Unknown Organization [facility] Address [address] [address] Care Team Providers Care Sequins Stringer Name Role Phone No Primary/Referring, Phy Primary Care Provider Unavailable Reason for Visit * Auth/Cert (Routine) Specialty Diagnoses / Procedures Referred By Alfonso killian Referred To Contact Diagnoses Flank pain Nephrolithiasis Urinary tract infection with hematuria, site unspecified Nephrolithiasis Urinary tract infection with hematuria, site unspecified Flank pain Referral ID Status Reason Start Date Expiration Date Visits Re quested Visits Authorized [id number] 1 1 Encounter Details Date Type Department Care Team (Late st Contact Info) Description 08/27/2023 7:05 AM M[facility]ORY [facility] Ancillary Procedure [facility] [address] [place] [id number] Social History Tobacco Use Types Packs/Day Years Used Date Smoking Tobacco: Never Assessed Sex and Gender Information Value Date Recorded Sex Assigned at Not on file Gender Identity Not on file Sexual Orientation Not on file documented as of this encounter Plan of Treatment Not on file documented as of this encounter Procedures Procedure Name Priority Date/Time Associated Diagnosis Comments INPATIENT TELEMETRY MONITORING Routine 08/28/2023 11:44 PM M[facility] INPATIENT TELEMETRY MONITORING Routine 08/28/2023 5:23 AM [facility] INPATIENT TELEMETRY MONITORING Routine 08/28/2023 5:23 AM M[facility] INPATIENT TELEMETRY MONITORING Routine 08/28/2023 5:23 AM M[facility] INPATIENT TELEMETRY MONITORING Routine 08/28/2023 5:23 AM M[facility] INPATIENT TELEMETRY MONITORING Routine 08/27/2023 11:31 PM [facility] INPATIENT TELEMETRY MONITORING Routine 08/27/2023 4:54 PM [facility] INPATIENT TELEMETRY MONITORING Routine 08/27/2023 9:08 AM [facility] INPATIENT TELEMETRY MONITORING Routine 08/27/2023 9:08 AM [facility] XR C-ARM 1-1.5 HOURS Routine 08/27/2023 8:16 AM [facility] documented in this encounter Results * INPATIENT TELEMETRY MONITORING (08/28/2023 11:44 PM [facility]) TELE P-R INTERVAL 0.18 MUSE G[facility] TELE QRS DURATION 0.15 MUSE GHP TELE R-R INTERVAL 1.02 MUSE GHP TELE QT 0.50 MUSE GHP TELE INTERPRETATION Sinus Gabo w/ Deion Luevano RN HR 57 MUSE GHP 08/28/2023 11:4 4 PM [facility] Narrative MUSE GHP - 08/28/2023 11:50 PM [facility] Sinus Gabo ??kristie/ Deion Luevano RN HR 57 Interface Provider EKShannon Performing Organization Address [facility] Co de Phone Number MUSE GHP [address] [place] [address] * INPATIENT TELEMETRY MONITORING (08/28/2023 5:23 AM [facility]) TELE P-R INTERVAL 0.19 MUSE GHP TELE QRS DURATION 0.07 MUSE GHP TELE R-R INTERVAL 1.22 MUSE GHP TELE QT 0.43 MUSE GHP TELE QTC 0.39 MUSE GHP TELE INTERPRETATION Sinus Rhythm NEGIN TATE MUSE GHP 08/28/2023 5:23 AM [facility] Narrative MUSE GHP - 08/28/2023 11:54 AM MIGR[facility]ORY [facility] Sinus Rhythm ??LEARN Interface Provider EKG Performing Organization Address City/[facility]/ZIP Co de Phone Number MUSE [facility] [address] [place] [address] * INPATIENT TELEMETRY MONITORING (08/28/2023 5:23 AM M[facility]) TELE P-R INTERVAL 0.19 MUSE GHP TELE QRS DURATION 0.07 MUSE GHP TELE R-R INTERVAL 1.22 MUSE GHP TELE QT 0.43 MUSE GHP TELE QTC 0.39 MUSE GHP TELE INTERPRETATION Sinus Rhythm LEARN SHELIA GHP 08/28/2023 5:23 AM [facility] Narrative MUSE GHP - 08/28/2023 11:54 AM MIGRATORY [facility] Sinus Rhythm ??LEA,RN Interface Provider EKG Performing Organization Address City/[facility] Co de Phone Number MUSE [facility] [address] [place] [address] * INPATIENT TELEMETRY MONITORING (08/28/2023 5:23 AM M[facility]ORY [facility]) TELE P-R INTERVAL 0.19 MUSE GHP TELE QRS DURATION 0.07 MUSE GHP TELE R-R INTERVAL 1.22 MUSE GHP TELE QT 0.43 MUSE GHP TELE QTC 0.39 MUSE GHP TELE INTERPRETATION Sinus Rhythm LEARN SHELIA GHP 08/28/2023 5:23 AM [facility] Narrative MUSE GHP - 08/28/2023 11:54 AM MIGRATORY [facility] HAND Sinus Rhythm ??LEA,RN Interface Provider EKG Performing Organization Address [facility] Co de Phone Number MUSE [facility] [address] [place] [address] * INPATIENT TELEMETRY MONITORING (08/28/2023 5:23 AM MIGR[facility]ORY [facility]) TELE P-R INTERVAL 0.19 MUSE GHP TELE QRS DURATION 0.07 MUSE GHP TELE R-R INTERVAL 1.22 MUSE GHP TELE QT 0.43 MUSE GHP TELE QTC 0.39 MUSE GHP TELE INTERPRETATION Sinus Rhythm LEARN MUSE GHP 08/28/2023 5:23 AM M[facility] Narrative MUSE GHP - 08/28/2023 11:54 AM MIGRATORY [facility] HAND Sinus Rhythm ??LEA,RN Interface Provider EKG Performing Organization Address [facility] de Phone Number MUSE GHP [address] [place] [address] * INPATIENT TELEMETRY MONITORING (08/27/2023 11:31 PM MIGRATORY [facility]ARM HAND) TELE P-R INTERVAL 0.17 MUSE GHP TELE QRS DURATION 0.17 MUSE GHP TELE R-R INTERVAL 1.11 MUSE GHP TELE QT 0.49 MUSE GHP TELE INTERPRETATION Sinus Gabo w/Chloé Thurman RN HR 54 MUSE GHP 08/27/2023 11:3 1 PM M[facility] Narrative MUSE GHP - 08/27/2023 11:36 PM MIGR[facility]ORY [facility] HAND Sinus Gabo ??w/Chloé Thurman RN HR 54 Interface Provider EKG Performing Organization Address [facility] de Phone Number MUSE GHP [address] [place] [address] * INPATIENT TELEMETRY MONITORING (08/27/2023 4:54 PM MIGRATORY [facility]ARM HAND) TELE P-R INTERVAL 0.17 MUSE GHP TELE QRS DURATION 0.08 MUSE GHP TELE R-R INTERVAL 1.09 MUSE GHP TELE INTERPRETATION Sinus Gabo NEGIN Garcia w/ HR 57 MUSE GHP 08/27/2023 4:54 PM M[facility]ORY [facility] HAND Narrative MUSE GHP - 08/27/2023 4:59 PM MIGRATORY [facility] HAND Sinus Gabo ??NEGIN Garcia w/ HR 57 Interface Provider EKG Performing Organization Address [facility] de Phone Number MUSE GHP [address] [place] [address] * INPATIENT TELEMETRY MONITORING (08/27/2023 9:08 AM MIGRATORY [facility] HAND) TELE P-R INTERVAL 0.18 MUSE GHP TELE QRS DURATION 0.15 MUSE GHP TELE R-R INTERVAL 1.06 MUSE GHP TELE INTERPRETATION Sinus Gabo hr 56 MUSE GHP 08/27/2023 9:08 AM M[facility]ORY [facility] Narrative MUSE GHP - 08/27/2023 9:12 AM MIGRATORY [facility] HAND Sinus Gabo ??hr 56 Interface Provider EKG Performing Organization Address City/[facility] Co de Phone Number MUSE TRAVP [address] [place] [address] * INPATIENT TELEMETRY MONITORING (08/27/2023 9:08 AM MIGRATORY [facility]ARM HAND) TELE P-R INTERVAL 0.18 MUSE GHP TELE QRS DURATION 0.15 MUSE GHP TELE R-R INTERVAL 1.06 MUSE GHP TELE INTERPRETATION Sinus Gabo hr 56 MUSE GHP 08/27/2023 9:08 AM MIGRATORY [facility] HAND Narrative MUSE GHP - 08/27/2023 9:12 AM MIGRATORY FARM HAND Sinus Gabo ??hr 56 Interface Provider EKG Performing Organization Address [facility] Co de Phone Number SHELIA RAVIP [address] [place] [address] documented in this encounter Visit Diagnoses Not on filedocumented in this encounter Care Teams Sequins Stringer Relationship Specialty Start Date End Date No Primary/Referring, Phy PCP - General 08/26/23 documented as of this encounter
--- OUTSIDE RECORDS SUMMARY | 2023-11-04 22:49 | XMS_ITS | Encounter Summary ---
Author Name Unknown Organization [facility] Address [address], [place] [address] Care Team Providers Care Charge Master Analyst Name Role Phone No Primary/Referring, Phy Primary Care Provider Unavailable Reason for Referral * Consult/Transfer Care (Routine) - New Request Specialty Diagnoses / Procedures Referred By Alfonso killian Referred To Contact Diagnoses Complicated UTI (urinary tract infection) Hydronephrosis, unspecified hydronephrosis type Left ureteral stone Shannan Bender PA-C [address] [place] [id number] Referral ID Status Reason Start Date Expiration Date V isits Requested Visits Authorized [id number] New Request 08/29/2023 11/27/2024 1 1 Scheduling Instructions Your clinician [facility] an [facility] You can quickly make your appointment online at [employer]/schedule. You can also call [phone] for help scheduling your appointment. We suggest you call your health insurance company about your coverage and benefits for this appointment. Question Answer Appointment Urgency? Non-Urgent Reason for visit? obstructing ureteral stone s/p stent MILITARY ANALYST * Consult/Transfer Care (Routine) Specialty Diagnoses / Procedures Referred By Alfonso killian Referred To Contact [address] [address] Referral ID Status Reason Start Date Expiration Date Visits Re quested Visits Authorized Scheduling Instructions This order is your clinician's recommendation for a service and is not an insurance referral which authorizes payment. The recommended service and/or location may not be covered by your insurance plan. Please call the number on your insurance card to find out your specific benefits and coverage for the recommended services and/or location. If you need help scheduling the recommended services, please ask your clinician's staff to assist you. Question Answer What type of follow up? IP Discharge Appointment Urgency? Non-Urgent Reason for visit? hospital follow up MILITARY ANALYST * (Routine) - Incomplete Specialty Diagnoses / Procedures Referred By Contac t Referred To Contact Procedures XR C-Arm 1-1.5 Hours Francoise Vragas MD [address] [place] [address] Referral ID Status Reason Start Date Expiration Date V isits Requested Visits Authorized [id number] Incomplete 08/27/2023 11/25/2024 1 1 MILITARY ANALYST * Procedure/Equipment (Routine) - Incomplete Specialty Diagnoses / Procedures Referred By Contac t Referred To Contact Procedures CT Angio Chest And CT Abd Pelvis W IV Cont CT Angio Chest W IV Cont PE Study Iris Ly PA-C [address] [place] [address] Referral ID Status Reason Start Date Expiration Date V isits Requested Visits Authorized [id number] Incomplete 08/26/2023 11/24/2024 1 1 MILITARY ANALYST * Procedure/Equipment (Routine) - Incomplete Specialty Diagnoses / Procedures Referred By Contac t Referred To Contact Procedures XR Portable Chest 1 View Iris Ly PA-C [address] [place] [address] Referral ID Status Reason Start Date Expiration Date V isits Requested Visits Authorized [id number] Incomplete 08/26/2023 11/24/2024 1 1 MILITARY ANALYST Reason for Visit * Reason Comments Pain * Auth/Cert (Routine) Specialty Diagnoses / Procedures Referred By Contac t Referred To Contact Diagnoses Flank pain Nephrolithiasis Urinary tract infection with hematuria, site unspecified Nephrolithiasis Urinary tract infection with hematuria, site unspecified Flank pain Referral ID Status Reason Start Date Expiration Date Visits Re quested Visits Authorized [id number] 1 1 Encounter Details Date Type Department Care Team (Latest Contact Info) Description 08/26/2023 7:06 PM LEAD MILITARY ANALYST - 08/29/2023 2:00 PM LEAD MILITARY ANALYST Hospital Encounter [facility] [place] [id number] Garrett Aquino MD [address] [place] [id number] Mele Urbano MD [address] [place] [phone] Filemon Rachel MD [address] [place] [phone] Francoise Vargas MD [address] [place] [id number] Shannan Bender, PA-C [address] [place] [phone] Complicated UTI (urinary tract infection) (Primary Dx); Nephrolithiasis; Urinary tract infection with hematuria, site unspecified; Flank pain; Hydronephrosis, unspecified hydronephrosis type; Left ureteral stone Discharge Disposition: Home Social History Tobacco Use Types Packs/Day Years Used Date Smoking Tobacco: Never Assessed Sex and Gender Information Value Date Recorded Sex Assigned at Not on file Gender Identity Not on file Sexual Orientation Not on file documented as of this encounter Last Filed Vital Signs Vital Sign Reading Time Taken Comments Blood Pressure 109/53 08/29/2023 8:57 AM LEAD MILITARY ANALYST Pulse 66 08/28/2023 8:52 AM LEAD MILITARY ANALYST Temperature 36.6 ??C (97.9 ??F) 08/29/2023 7:40 AM CS T Respiratory Rate 20 08/29/2023 7:40 AM LEAD MILITARY ANALYST Oxygen Saturation 97% 08/29/2023 7:40 AM LEAD MILITARY ANALYST Inhaled Oxygen Concentration - - Weight 58.4 kg (128 lb 11.2 oz) 08/27/2023 4:22 AM LEAD MILITARY ANALYST Height 160 cm (5' 3) 08/27/2023 4:22 AM LEAD MILITARY ANALYST Body Mass Index 22.8 08/27/2023 4:22 AM LEAD MILITARY ANALYST documented in this encounter Discharge Summaries * Shannan Bender PA-C - 08/29/2023 1:25 PM CST General Medicine Service Discharge Summary Admit date: 08/26/2023 7:06 PM Discharge date: 08/29/2023 Date of Service: 08/29/2023 Service: General Medicine Professional ong interpretor used DAMIAN FOLLOW UP INFORMATION - urology in 2-4 weeks for definitive ureteroscopy for stone removal - PCP prn Final diagnoses (primary and secondary): Obstructing L ureteral stone with hydronephrosis Severe sepsis 2/2 complicated UTI Incidental low risk pulmonary nodule CAD s/p CABG and stenting HLD HFpEF without acute exacerbation Problem that led to hospitalization: Flank pain Please see admission H&P from 08/26/2023 7:06 PM for further details regarding presentation. Hospital Course: Sendy Moses is a 77 y.o. female who presented to the ER 08/26/2023 with L flank pain and was found to have an obstructing L ureteral stone with complicated UTI. Obstructing L ureteral stone with hydronephrosis Severe sepsis 2/2 complicated pansensitive E.coli UTI Presented to the ER with abdominal pain. Found to have 7 mm calculus proximal left ureteral stone on CT with mild left hydronephrosis. UA infected. Urology consulted and underwent stent placement 08/27/2023 without complication. Not initially septic but lactic acidosis with fluid responsive hypotension post op. Treated with ceftriaxone. Urine culture grew pansensitive E.coli. Narrowed to Keflex prior to DC. - Keflex BID x2 weeks - cystoscopy with stone removal in 2 weeks Incidental low risk pulmonary nodule 4 mm right middle lobe on CTA - Guidelines recommend no follow up. Patient denies use and history of use of tobacco products. Chronic Issues: CAD s/p CABG and stenting - Remote. Continue ASA, plavix. Resume metoprolol on DC. HLD - Continue statin HFpEF - resume lisinopril, lasix on DC Procedures Performed / Pertinent Tests and Results: CTA chest, abdomen, pelvis 1. 7 mm calculus proximal left ureter. Mild left hydronephrosis. 2. Bilateral renal calculi. 3. Cholelithiasis. 4. 4 mm right middle lobe pulmonary nodule. Cystoscopic placement left ureteral stent 08/27/23 Consults Involved: urology Physical Examination: Patient seen and examined today. BP (!) 146/66 Pulse 66 Temp 97.9 ??F (36.6 ??C) (Oral) Resp 20 Ht 5' 3 (1.6 m) Wt 58.4 kg (128 lb 11.2 oz) SpO2 97% BMI 22.80 kg/m?? GEN - alert, pleasant female, NAD HEENT -face symm, MMM NECK - supple, no JVD PULM - cta b/l CV - RRR, no murmur ABD - soft, nt/nd EXT -symm LEs w/o edema NEURO - no gross focal deficits, speech is clear SKIN - no significant rashes Discharge Information: Condition at discharge: stable Discharge destination: home. Medications at discharge: Current Discharge Medication List CONTINUE these medications which have NOT CHANGED Details clopidogrel (PLAVIX) 75 MG tablet Take 1 [...] 1 Tablet (10 mg) by mouth daily. STOP taking these medications pantoprazole DR (PROTONIX) 40 MG tablet Comments: Reason for Stopping: Follow-Up Care: Labs and Imaging tests done in the hospital with results pending at this time: blood cultures Labs and Imaging tests which should be done or considered in the outpatient setting: none Time spent in discharge: > 30 minutes Code Status: Full Code. For information about patient referrals and other discharge orders, please see Discharge Instructions or the Other Orders tab in Chart Review. Shannan Bender PA-C Internal Medicine --End of Report-- MILITARY ANALYST documented in this encounter Discharge Instructions * Discharge Instructions* Agustina Parks RN - 08/27/2023 8:00 AM LEAD MILITARY ANALYST CONTACT INFORMATION If it is after hours call the Careline at [phone]. [facility] Surgery: Please contact your clinic during regular business hours or in case of anEmergency dial 911. Urology, ANESTHESIA Today you received General/Minor Sedation: Rest in bed the day of surgery, then advance to normal activity the next day. Let's talk about what to expect after receiving anesthesia. After anesthesia, reactions are slow and some patients may become lightheaded or dizzy. The following safety precautions are recommended: Don't drink alcoholic beverages. Don't use any other drugs than those ordered by your physician. Don't drive a car or any other vehicle. Don't work with machinery or power tools. Be careful walking. Be extra careful walking up and down stairs. DANGER SIGNALS I should call my clinic if I experience any of the following: Temperature higher than 101 degrees Fahrenheit Redness that has spread Persistent bleeding Green/yellow/infected, foul smelling drainage from incision site Reaction to new medications Severe pain Swelling Community Resources N/A Fall Prevention Recommendations Follow therapy recommendations around equipment use and activity progression Remove trip hazards to keep pathways clear in the home Remove throw rugs Keep frequently used items in easy to reach places Use non-slip mats in the bathtub and on shower floors Improve lighting in your home in all areas Wear shoes or non-slip footwear inside the house MILITARY ANALYST * Discharge Instr - Safety* Agustina Parks RN - 08/29/2023 12:15 PM LEAD MILITARY ANALYST Call your clinic or seek medical help if you have any sudden change in your condition or if you have any of the following: chest pain difficulty breathing fever greater than 101.3 degrees F pain not relieved with usual methods MILITARY ANALYST * Attachments The following attachments cannot be sent through Care Everywhere. * Kidney Stone (Hmong) documented in this encounter Medications at Time of Discharge Medication Sig Dispensed Refills Start Date End Date clopidogrel (PLAVIX) 75 MG tablet Take 1 Tablet (75 mg) by mouth daily. 08/11/2023 gabapentin (NEURONTIN) 300 MG capsule Take 1 Capsule (300 mg) by mouth three times a day. 08/11/2023 metoprolol succinate (TOPROL XL) 25 MG 24 [...] for 14 days. 28 Capsule 08/29/2023 09/12/2023 furosemide (LASIX) 20 MG tablet Take 1 Tablet (20 mg) by mouth daily. 08/11/2023 09/01/2023 lisinopril (ZESTRIL) 2.5 MG tablet Take 1 Tablet (2.5 mg) by mouth daily. 08/11/2023 09/01/2023 documented as of this encounter Progress Notes * Shannan Bender PA-C - 08/28/2023 1:25 PM CST Images from the original note were not included. [facility] Medicine Progress Note Patient Name: Sendy Moses Attending: Shannan Bender PA-C Date of Service: 08/28/2023 Subjective: Ipad interpretation used. Fatigued and generally weak but pain improved. No fever or chills. Objective: BP 117/66 (BP Cuff Size: Regular) Pulse 66 Temp 97.5 ??F (36.4 ??C) (Oral) Resp 17 Ht 5' 3(1.6 m) Wt 58.4 kg (128 lb 11.2 oz) SpO2 95% BMI 22.80 kg/m?? General: A&Ox3, no acute distress CV: RRR, no murmur Lungs: CTA b/l, No Wheezing Abd: Normal BS, soft, ND. nontender Ext: No C/C/E Skin: Warm and dry, no rash Labs: Reviewed and notable for the following: No leukocytosis Creat 0.98 > 1.14 > 0.8 Lactate 3 (overnight) > 2.2 New Imaging/Other: No new imaging Assessment and Plan: Sendy Moses is a 77 y.o. female who presented to the ER 08/26/2023 with L chest and flank pain and was found to have an obstructing L ureteral stone with complicated UTI. Obstructing L ureteral stone with hydronephrosis Severe sepsis 2/2 complicated UTI Presented to the ER with abdominal pain. Found to have 7 mm calculus proximal left ureteral stone on CT with mild left hydronephrosis. UA infected. Urology consulted and underwent stent placement 08/27/2023 without complication. Not initially septic but lactic acidosis with fluid responsive hypotension post op. Treated with ceftriaxone. - give additional 1L LR bolus now - Continue CTX pending urine culture - scheduled Tylenol, oxycodone prn for breakthrough Incidental low risk pulmonary nodule 4 mm right middle lobe on CTA - Guidelines recommend no follow up for low risk patients. Patient denies use and history of use oftobacco products. Chronic Issues: CAD s/p CABG and stenting - Remote. Continue ASA, resume plavix. Hold metoprolol in setting of severe sepsis HLD - Continue statin HFpEF - hold lisinopril, lasix in setting severe sepsis Care Details: Level of care: inpatient general care DVT PPX: low risk Code Status: Full Code Disposition Planning: Likely home tomorrow pending clinical stability overnight Shannan Bender PA-C [facility] MILITARY ANALYST * Shannan Bender PA-C - 08/27/2023 10:53 AM CST Images from the original note were not included. [facility] Medicine Progress Note Patient Name: eSndy Moses Attending: Shannan Bender PA-C Date of Service: 08/27/2023 Subjective: Ipad interpretation used. Patient seen after ureteral stent placement. Reports no pain, fever, or nausea. Objective: BP 124/55 Pulse (!) 56 Temp 98 ??F (36.7 ??C) (Oral) Resp 17 Ht 5' 3 (1.6 m) Wt 58.4 kg (128 lb 11.2 oz) SpO2 94% BMI 22.80 kg/m?? General: A&Ox3, no acute distress CV: RRR, no murmur Lungs: CTA b/l, No Wheezing Abd: Normal BS, soft, ND. LLQ tender to palpation without guarding. No CVA tenderness. Ext: No C/C/E Skin: Warm and dry, no rash Labs: Reviewed and notable for the followin08/27/23544 Basic Metabolic Panel Collected: 08/27/23507 Final result Specimen: Blood Sodium 138 mmol/L Calcium 8.6 mg/dL Potassium 3.3 Low mmol/L BUN 24 mg/dL Chloride 106 mmol/L Creatinine 1.14 High mg/dL CO2 23 mmol/L Glucose 144 High mg/dL Anion Gap 9 mmol/L GFR, Estimated 49 Low mL/min/1.73m2 08/27/23544 Liver Panel(Hepatic Function Panel) Collected: 08/27/23507 Final result Specimen: Blood Alkaline Phosphatase 124 U/L ALT (SGPT) 11 U/L Bilirubin, Total 0.4 mg/dL Protein, Total 6.0 Low g/dL Bilirubin, Direct 0.2 mg/dL Albumin 2.9 Low g/dL AST (SGOT) 16 U/L 08/27/23527 INR/Protime Collected: 08/27/23507 Final result Specimen: Blood Protime 13.5 Seconds INR 1.0 08/27/23522 Complete Blood Count-No Diff Collected: 08/27/23507 Final result Specimen: Blood WBC 6.3 x10(9)/L MCH 24.8 Low pg RBC 4.43 x10(12)/L MCHC 30.1 Low g/dL Hemoglobin 11.0 Low g/dL RDW 18.6 High % HCT 36.6 % Platelets 192 x10(9)/L MCV 82.6 fL Automated NRBC 0 /100 WBC 08/27/23 0134 UA Conditional UC: Clean Catch Collected: 08/27/23 0035 Final result Specimen: Urine from Clean Catch Urine Culture Comment Urinalysis results meet criteria for reflex, culture performed. Blood, Urine (mg/dL) 1.0 (Large) Abnormal Urine Color Light-Yellow Nitrite Urine 2+ (Positive) Abnormal Urine Clarity Clear Leukocyte Esterase, Urine (Ant/uL) 250 (Moderate) Abnormal Specific [place], Urine 1.023 Red Blood Cells 28 High /HPF PH Urine 5.5 White Blood Cells 23 High /HPF Protein, Urine Qual (mg/dL) Negative Bacteria Few Abnormal /HPF Glucose Urine Qual (mg/dL) Normal (Negative) Squamous Epithelial Cells Occasional /HPF Ketones, Urine (mg/dL) Negative Mucus Present Abnormal /HPF Urobilinogen, Urine (EU/dL) Normal (Negative) Hyaline Casts 6 High /LPF Bilirubin Urine (mg/dL) Negative Urine Source Clean Catch New Imaging/Other: No new imaging Assessment and Plan: Sendy Moses is a 77 y.o. female who presented to the ER 08/26/2023 with L chest and flank pain and was found to have an obstructing L ureteral stone with complicated UTI. Obstructing L ureteral stone with hydronephrosis Elevated creatinine Complicated UTI Presented to the ER with abdominal pain. Found to have 7 mm calculus proximal left ureteral stone on CT with mild left hydronephrosis. UA infected. Not septic. Started on ceftriaxone. Urology consulted and underwent stent placement 08/27/2023 without complication. - Continue CTX pending urine culture - scheduled Tylenol, oxycodone prn for breakthrough Dehydration Casts noted on UA. - 1L LR bolus now Incidental low risk pulmonary nodule 4 mm right middle lobe on CTA - Guidelines recommend no follow up for low risk patients. Patient denies use and history of use oftobacco products. Chronic Issues: CAD s/p CABG and stenting - Remote. Continue ASA, resume plavix HLD - Continue statin HFpEF - hold lisinopril today pending kidney function monitoring in AM. Resume metoprolol succinate Care Details: Level of care: inpatient general care DVT PPX: low risk Code Status: Full Code Disposition Planning: Likely home tomorrow pending clinical stability overnight Shannan Bender PA-C [facility] MILITARY ANALYST * Mira Price MD - 08/27/2023 3:04 AM CST Urology Brief Note Contacted by ED regarding patient. Sendy is a 77 y.o. old female with PMH of HFpEF, CAD s/p CABG x3, HLD who presents to the ED for evaluation of left chest and flank pain and cough. CT angio revealed Mild left hydronephrosis and left perinephric stranding. 7 mm calculus proximal left ureter. UA with +nitrites, +LE, 28 rbcs, 23 wbcs Cr 0.98 WBC 7.4 She is afebrile, HR 50-60s, BP variable - 93/54 - 157/86 She is being admitted to medicine service Recommendations: NPO now IVF hydration Antibiotics per primary team, adjust pending UCX results Recommend OR for placement of left ureteral stent given obstructing stone and UTI Please contact urology on-call if there is any change in her clinic status/signs of sepsis and stent placement can be expedited Mira Price MD MILITARY ANALYST documented in this encounter Procedure Notes * Mira Price MD - 08/27/2023 8:47 AM CST [facility] Operative Note Surgery Date: 08/27/2023 Surgeons and Role: * Mira Price MD - Primary Pre-op Diagnosis: * Left ureteral stone [N20.1] Post-op Diagnosis: * Left ureteral stone [N20.1] Procedure(s) (LRB): Cystoscopy Left retrograde pyelogram Left ureteral stent placement (6 Luxembourger x 22 cm double J) Beaver catheter placement EBL: 5cc Specimens: * No specimens in log * Findings: Normal urethra. Bladder with orthotopic ureteral orifices. No tumors or masses. Retrograde pyelogram with moderate hydronephrosis. Retained contrast in left renal pelvis from prior CT. Indications: Please see prior notes. Patient has obstructing left ureteral stone and UA concerning for infection. Prior to surgery, the patient understood the risks including but not limited to bleeding, infection, damage to adjacent structures, need for additional procedures. Despite these risks, the patient agreed to proceed. Technique: After informed consent was obtained the patient was taken to the operating room. MAC anesthesia was induced. SCDs were placed and perioperative antibiotics were administered. The patient was placed in the dorsal lithotomy position and genitalia were prepped and draped in the usual fashion. A surgical timeout was performed and all were in agreement, including laterality. A 22-Luxembourger rigid cystoscope with 30?? lens was lubricated and inserted per urethra and advanced into the bladder with findings as noted above. The left ureteral orifice was identified and cannulated with a 5-Luxembourger open- ended ureteral access catheter, with the aid of a guidewire. After industrial psychology teacher images of the pelvis and abdomen were taken, a gentle retrograde pyelogram was performed using diluted Isovue contrast for anatomic mapping of the collecting system. I personally performed and interpreted the retrograde pyelogram. Findings as noted above. The wire was then replaced and the 5-Luxembourger catheter removed. Under endoscopic and fluoroscopic guidance, a 6-Luxembourger x 22 centimeter double-J ureteral stent was inserted in a retrograde fashion, witha good curl noted in the renal pelvis with the aid of fluoroscopy and distal curl appreciated in the bladder visually. The bladder was drained and the cystoscope removed. A 16 Fr beaver catheter was then placed, with 10cc of water in the balloon. The patient was then awoken and brought to the recovery room in stable condition. The patient tolerated the procedure well. 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 Nephrolithiasis 2. Urinary tract infection with hematuria, site unspecified 3. Flank pain CC/HPI: Sendy Moses is a 77 y.o. old F seen in consult for urologic evaluation and treatment of left ureteral stone and UTI. Due to language barrier, an vp clinical was present during the history-taking and subsequent discussion (and for part of the physical exam) with this patient. She has a past medical history of HFpEF (last EF 55-60% ), CAD s/p CABG x3 in 2009 (LUNA LAD, SV OM, SV PLB), Hx of CRYSTAL x4 SVG-RPDB in 10/2022, HLD, and pulmonary HTN who presented for evaluation of left flank and abdominal pain for 1-[address] angio revealed Mild left hydronephrosis and left perinephric stranding. There is a 7 mm calculusproximal left ureter. UA with +nitrites, +LE, 28 rbcs, 23 wbcs Cr 0.98 WBC 7.4 She is afebrile, HR 50-60s, BP variable - 93/54 - 157/86 She denies history of kidney stones prior. Current Facility-Administered Medications Medication Dose Route Frequency Provider Last Rate Last Admin acetaminophen (TYLENOL) tablet 650 mg 650 mg Oral Q6H PRN Garrett Serna MD benzocaine-menthol (Chloraseptic) lozenge 1 Lozenge 1 Lozenge Oral Q2H PRN Garrett Serna MD senna (SENOKOT) tablet 2 Tablet 2 Tablet Oral BID PRN Garrett Serna MD And polyethylene glycol (MIRALAX) oral powder 17 g 17 g Oral DAILY PRN Garrett Serna MD And bisacodyl (DULCOLAX) rectal suppository 10 mg 10 mg Rectal DAILY PRN Garrett Serna MD calcium carbonate (TUMS) chewable tablet 1,000 mg 1,000 mg Oral Q4H PRN Garrett Serna MD ceFAZolin (ANCEF) 2 g in sodium chloride 0.9 % 50 mL IVPB ADS 2 g Intravenous Once (Non-Scheduled) Mira Price MD [START ON 08/28/2023] cefTRIAXone (ROCEPHIN) 2 g in sodium chloride 0.9 % 100 mL IVPB 2 g [id number] (NS) Garrett Serna MD [Held by provider in Manage Orders] clopidogrel (PLAVIX) tablet 75 mg 75 mg Oral Daily Garrett Serna MD [Held by provider in Manage Orders] furosemide (LASIX) tablet 20 mg 20 mg Oral Daily Garrett Serna MD gabapentin (NEURONTIN) capsule 300 mg 300 mg Oral TID Garrett Serna MD HYDROmorphone (DILAUDID) injection 0.2 mg 0.2 mg Intravenous Q4H PRN Garrett Serna MD lactated ringers infusion Intravenous Continuous Garrett Serna MD 100 mL/hr at 08/27/23 0441 New Bag at 08/27/23 0441 lisinopril (ZESTRIL) tablet 2.5 mg 2.5 mg Oral Daily Garrett Serna MD melatonin tablet 6 mg 6 mg Oral At bedtime PRN Garrett Serna MD metoprolol succinate (TOPROL XL) extended release tablet 12.5 mg 12.5 mg Oral Daily Ashwin Serna MD pantoprazole DR (PROTONIX) tablet 40 mg 40 mg Oral Daily Garrett Serna MD rosuvastatin (CRESTOR) tablet 10 mg 10 mg Oral Daily Garrett Serna MD No Known Allergies ROS: Per HPI No past medical history on file. No past surgical history on file. Social History Socioeconomic History Marital status: Not on file Spouse name: Not on file Number of [...] Resource Strain: High Risk (06/28/2021) Received from [facility] Financial Resource Strain Difficulty of Paying Living Expenses: Not on file Difficulty of Paying Living Expenses: Not on file Food Insecurity: Not on file Transportation Needs: Not on file Intimate Partner Violence: Not on file Housing Stability: Not on file No family history on file. Physical Exam: BP 107/60 Pulse (!) 57 Temp 97 ??F (36.1 ??C) (Temporal Artery) Resp 20 Ht 5' 3 (1.6 m) Wt 58.4 kg (128 lb 11.2 oz) SpO2 96% BMI 22.80 kg/m?? Constitutional: Vitals reviewed above. Pleasant mannerism and in no apparent distress. Skin: Warm and dry. No active rashes, lesions, infections noted. Neck: Symmetric, no obvious mass. Respiratory: Easily breathing on room air. Good respiratory excursion. No obvious wheezes. CV: No JVD noted. GI: rounded soft, not distended, nontender. No obvious abdominal masses. No guarding or rebound. Musculoskeletal: No obvious spinal deformities. Moves all extremities. Neuro: Nonfocal. No neurologic defects noted. Psych: Normal affect. Alert and oriented to person, place and time. Answers questions appropriately. Labs: Lab Results Component Value Date/Time URAP Clear 08/27/2023 12:35 AM UCOL Light-Yellow 08/27/2023 12:35 AM SPGU 1.023 08/27/2023 12:35 AM LEUKU 250 (Moderate) (A) 08/27/2023 12:35 AM NITRU 2+ (Positive) (A) 08/27/2023 12:35 AM PHUR 5.5 08/27/2023 12:35 AM PROU Negative 08/27/2023 12:35 AM GLUUC Normal (Negative) 08/27/2023 12:35 AM KETU Negative 08/27/2023 12:35 AM UBGQ Normal (Negative) 08/27/2023 12:35 AM BILIU Negative 08/27/2023 12:35 AM BLDU 1.0 (Large) (A) 08/27/2023 12:35 AM URBCS 28 (H) 08/27/2023 12:35 AM UWBC 23 (H) 08/27/2023 12:35 AM UEPI Occasional 08/27/2023 12:35 AM UBACT Few (A) 08/27/2023 12:35 AM Creatinine Date Value Ref Range Status 08/27/2023 1.14 (H) 0.55 - 1.02 mg/dL Final 08/26/2023 0.98 0.55 - 1.02 mg/dL Final Imaging: CT angio IMPRESSION: 1. 7 mm calculus proximal left ureter. Mild left hydronephrosis. 2. Bilateral renal calculi. 3. Cholelithiasis. 4. 4 mm right middle lobe pulmonary nodule. I personally reviewed the images and report. Assessment: 77 y.o. F with 7mm obstructing left ureteral stone and UTI Plan: I recommend that the patient undergo left ureteral stent placement given obstructing stone and urinalysis concerning for infection. Reviewed risks of procedure including but not limited to worsening of infection, hematuria, risk of damage to the bladder, ureter, kidney, need for subsequent procedures if stent is unable to be placed, need for secondary procedure to remove the stone. The patient expressed understanding and a desire to proceed. Informed consent will be obtained. Consent was obtained with assistance of an vp clinical. Mira Price MD 08/27/2023, 7:16 AM MILITARY ANALYST documented in this encounter OR Notes * H&P - Garrett Serna MD - 08/27/2023 3:19 AM CST Images from the original note were not included. [facility] Medicine History & Physical Patient name: Sendy Moses : 1945 Date of Admission: 08/26/2023 7:06 PM Date of Service: 08/27/2023 Attending/Staff: Dr. Rachel Wafer Fabrication Operator Used: yes, patient is Hmong speaking. Daughter wanted to interpret. Chief Complaint Left Abdominal Pain History of Present Illness Sendy Moses is a 77 y.o. female with a past medical history of HFpEF (last EF 55- 60% ), CAD s/p CABG x3 in 2009 (LUNA LAD, SV OM, SV PLB), Hx of CRYSTAL x4 SVG-RPDB in 10/2022, HLD, and pulmonary HTN who presents today with left flank and abdominal pain for 1-2 months. Patient is here with her daughter whointerprets for her. Patient states that the pain has been present for 1-2 months and is constant. She is unable to identify any alleviating or aggravating factors. There is no change with eating, butshe does state it is tender to touch. She denies any dysuria or any change in urine appearance. Shedenies any radiation of pain to her back or her chest. She additionally denies any nausea, vomiting, diarrhea, shortness of breath, chest pain, new rashes, or lower extremity swelling. She has no history of renal stones, but does have an extensive cardiac medical history. She has been eating and drinking as normal. She does have a mild cough but no fevers or chills. In the ED, patient was afebrile, HR 56, BP 157/86 and satting well on room air. Labs were notable for no leukocytosis, creatinine of 0.98, mildly elevated BNP to 249, D-Dimer to 0.98 and an infectious-appearing UA that refluxed to culture. CXR was notable for a mild left base opacity in her lungs that appeared more like atlectasis on CT. CTA Chest and CT A/P did not show a PE, but did show a 7mm left ureter calculus, mild left hydronephrosis, bilateral renal calculi and a 4 mm right middle lobenodule. Urology was consulted and are planning to undergo stent today and recommended NPO status and IVF hydration. She was given CTX, dilaudid and Toradol in the ED and admitted to general medicine. Review of Systems Review of Systems Constitutional: Negative for chills and fever. Respiratory: Negative for cough and shortness of breath. Cardiovascular: Negative for chest pain and leg swelling. Gastrointestinal: Positive for abdominal pain (Left Lower Abdomen). Negative for blood in stool, constipation, diarrhea, nausea and vomiting. Genitourinary: Negative for dysuria, flank pain and hematuria. Skin: Negative for rash. Neurological: Negative for light-headedness and headaches. Hematological: Does not bruise/bleed easily. Past Medical History Patient Active Problem List Diagnosis Cataract, nuclear sclerotic senile, bilateral Chronic heart failure with preserved ejection fraction (HRC) Dyslipidemia (HRC) S/P CABG x 3 Severe mitral regurgitation (HRC) Dermatochalasis of both upper eyelids Coronary atherosclerosis (HRC) Left ureteral stone Past Surgical History No past surgical history on file. Family History No family history on file. Social History Social History Socioeconomic History Marital status: Not on file Spouse name: Not on file Number of [...] Resource Strain: High Risk (06/28/2021) Received from [facility] [email or web address] [facility] Financial Resource Strain Difficulty of Paying Living Expenses: Not on file Difficulty of Paying Living Expenses: Not on file Food Insecurity: Not on file Transportation Needs: Not on file Intimate Partner Violence: Not on file Housing Stability: Not on file Medications Prior to Admission Medications Prescriptions Last Dose Informant Patient Reported? Taking? clopidogrel (PLAVIX) 75 MG tablet Unknown Yes No Sig: Take 1 Tablet (75 mg) by mouth daily. furosemide (LASIX) 20 MG tablet Unknown Yes No Sig: Take 1 Tablet (20 mg) by mouth daily. gabapentin (NEURONTIN) 300 MG capsule Unknown Yes No Sig: Take 1 Capsule (300 mg) by mouth three times a day. lisinopril (ZESTRIL) 2.5 MG tablet Unknown Yes No Sig: Take 1 Tablet (2.5 mg) by mouth daily. metoprolol succinate (TOPROL XL) 25 MG 24 hour release tablet Unknown Yes No Sig: Take 0.5 Tablets (12.5 mg) by mouth daily. nitroglycerin (NITROSTAT) 0.4 MG sublingual tablet Unknown Yes No Sig: Place 1 Tablet (0.4 mg) under tongue every 5 minutes as needed for Chest Pain. pantoprazole DR (PROTONIX) 40 MG tablet Unknown Yes No Sig: Take 1 Tablet (40 mg) by mouth daily. rosuvastatin (CRESTOR) 10 MG tablet Unknown Yes No Sig: Take 1 Tablet (10 mg) by mouth daily. Facility-Administered Medications: None Allergies Patient has no known allergies. Physical Exam Vitals: Patient Vitals for the past 8 hrs: BP Pulse SpO2 08/27/23 0230 102/59 (!) 58 100 % 08/27/23 0215 108/60 (!) 58 100 % 08/27/23 0210 110/59 (!) 58 99 % 08/27/23 0200 97/58 (!) 59 99 % 08/27/23 0151 101/57 64 97 % 08/27/23 0130 93/54 63 99 % 08/27/23 0041 -- 65 99 % 08/26/23 2230 (!) 154/84 64 100 % 08/26/23 2215 (!) 153/81 67 100 % 08/26/23 2200 (!) 156/81 65 100 % 08/26/23 2145 (!) 151/81 67 99 % 08/26/23 2115 (!) 150/78 67 100 % 08/26/23 1945 (!) 146/82 60 100 % Physical Exam Constitutional: General: She is not in acute distress. Appearance: Normal appearance. She is normal weight. She is not toxic-appearing. HENT: Head: Normocephalic and atraumatic. Nose: Nose normal. Eyes: General: No scleral icterus. Cardiovascular: Rate and Rhythm: Normal rate and regular rhythm. Pulses: Normal pulses. Heart sounds: Normal heart sounds. No murmur heard. No friction rub. No gallop. Pulmonary: Effort: Pulmonary effort is normal. No respiratory distress. Breath sounds: No wheezing or rales (Left lower lung base). Abdominal: General: Abdomen is flat. Bowel sounds are normal. There is no distension. Palpations: Abdomen is soft. There is no mass. Tenderness: There is abdominal tenderness (LLQ, no rebound). There is no right CVA tenderness, leftCVA tenderness, guarding or rebound. Musculoskeletal: Cervical back: No rigidity or tenderness. Right lower leg: No edema. Left lower leg: No edema. Skin: General: Skin is warm and dry. Findings: No bruising or rash. Neurological: General: No focal deficit present. Mental Status: She is alert and oriented to person, place, and time. Psychiatric: Mood and Affect: Mood normal. Behavior: Behavior normal. Labs/Imaging/Other Labs: Recent Labs 08/26/231941 SODIUM 139 K 3.5 CHLORIDE 104 BUN 23 CREATININE 0.98 GLUCOSE 148* Recent Labs 08/26/231941 WBC 7.4 HGB 11.6* HCT 38.2 EKG: Reviewed personally by me. Sinus rhythm Imaging: - CXR (): IMPRESSION: Mild opacity at the left lung base in the retrocardiac region may be related to atelectasis or infection. The lungs are otherwise clear. No pneumothorax. Sternotomy. Pulmonary vascularityis within normal limits. Aortic calcification. - CTA Chest, CT A/P (): IMPRESSION: 1. 7 mm calculus proximal left ureter. Mild left hydronephrosis. 2. Bilateral renal calculi. 3. Cholelithiasis. 4. 4 mm right middle lobe pulmonary nodule. Assessment/Plan Sendy Moses is a 77 y.o. female with a past medical history of HFpEF (last EF 55- 60% ), CAD s/p CABG x3 in 2009 (LUNA LAD, SV OM, SV PLB), Hx of CRYSTAL x4 SVG-RPDB in 10/2022, HLD, and pulmonary HTN who presents today with left flank and abdominal pain for 1-2 months. #Left Abdominal Pain #Renal Calculi #Complicated SONYA Presenting with left pain that has been present for 1-2 months. Patient denies any dysuria or hematuria. CT scan on presentation showing a 7 mm renal calculi with additional bilateral renal calculi. UA concerning for infection. Less likely pyelo as patient does not appear septic. Patient has not had fevers at home. No signs of diverticulitis or GI symptoms on CT scan or exam. Patient is not peritonitic. Less likely torsion given chronic nature of symptoms. - Continue CTX - Urology consulted, plan for stent later this afternoon - NPO at midnight - Gentle IV hydration - Tylenol, Dilaudid PRN for pain control - Continue LAUNDRY MACHINE TENDER gabapentin - Strict I/O - Follow up urine culture - If develops dyspnea, would add azithromycin and treat for CAP given left lower lobe opacity on CXR Chronic Issues: #CAD s/p CABG x3 in 2009 #CAD s/p CRYSTAL x4 in 10/2022 - Will hold plavix pre-procedurally, has been more than 6 months since CRYSTAL - Continue LAUNDRY MACHINE TENDER ASA - Continue LAUNDRY MACHINE TENDER Crestor 10mg daily #HFpEF - Not currently in exacerbation - BNP only mildly elevated, does not appear fluid up on exam - Continue LAUNDRY MACHINE TENDER lisinopril 2.5mg daily - Hold lasix preoperatively - Continue Metoprolol succinate 12.5mg daily FEN: NPO with upcoming procedure PPx: SCDs with upcoming procedure Lines/Catheters:PIV Level of Care: General cares Dispo: Admission for treatment of complicated UTI with renal stone Code Status/Goals of Care: FULL, confirmed with patient I anticipate that the patient's hospitalization will span at least the next two midnights, and theyshould be admitted as an inpatient because of a higher risk of an adverse outcome due to acute complicated renal stone. I estimate the length of stay to be 2-3 nights. Patient to be formally staffed in AM. Garrett Serna MD PGY-2, Internal Medicine-Pediatrics MILITARY ANALYST documented in this encounter ED Notes * Iris Ly PA-C - 08/26/2023 8:03 PM CST [facility] Emergency Medicine Visit Note Chief Complaint: Pain HPI Sendy is a 77 y.o. old female with PMH of HFpEF, CAD s/p CABG x3, HLD who presents to the ED for evaluation of left chest and flank pain and cough Most of the history is provided by patient's daughter as patient refuses to answer most questions. Offered [facility] [place] clinical and they declined. Patient's daughter tells me that she has had this pain by her left side for about a month associated with a productive cough for 2-3 weeks. Patient did not answer if there is any exacerbating or alleviating features, if the pain has been constant or waxing and waning and if she has had this pain inthe past. Daughter does not think they tried anything for it home outside of a nitro which was not helpful. The pain acutely worsened today which is what prompted their arrival. Patient is unable to localize where the pain is. Daughter denies hemoptysis, fever, syncope, sore throat, difficulty breathing, abdominal pain, nausea, vomiting, diarrhea, urinary symptoms, numbness or tingling in extremit ies, abnormal swelling in extremities. They state she has been compliant with medications. EMS gaveher 75 mcg fentanyl LAUNDRY MACHINE TENDER. They noted sinus bradycardia and mild HTN but otherwise normal vital signs. Daughter denies any recent trauma. Denies history of VTE, recent surgery or immobilization, cancerdiagnosis or treatment, long periods of immobilization This note contains text created using speech-recognition software and may contain unintended word substitutions. Triage Vitals Temp 08/26/231916 97.8 ??F (36.6 ??C) Temp src 08/26/231916 Oral Pulse 08/26/231913 (!) 56 Resp 08/26/231913 22 BP 08/26/231913 (!) 157/86 SpO2 08/26/231913 100 % Physical Exam Constitutional: Mild bradycardia, HTN and otherwise normal vital signs in an uncomfortable but nontoxic-appearing woman HENT: No scleral icterus. Grossly normal EOMs. Neck Supple. Normocephalic. Cardiovascular: Mild bradycardia. Regular rhythm. No murmur. Difficult exam given patient is unableto stop moaning. Edema absent in BLEs. Peripheral pulses: radial and PT pulse present and equal bilaterally. Pulmonary: crackles at lung bases bilaterally. Non-labored respirations. Difficulty exam as patientis unable to stop moaning Abdominal: Soft. Nondistended. Mild ttp to deep palpation in LUQ MSK: Spontaneously moves all extremities. Neuro: Alert and appropriate. GCS 15. Skin: No rash to exposed skin. Warm and dry. Psych: uncooperative with history, appears uncomfortable MDM: Sendy is a 77 y.o. old female with PMH of HFpEF, CAD s/p CABG x3, HLD who presents to the ED for evaluation of left chest and flank pain and cough. I considered a broad differential including acute heart failure, atypical presentation of ACS, PE, aortic dissection, pneumonia, pleural effusion, spontaneous pneumothorax, diverticulitis, ureterolithiasis, UTI, viral infection, constipation, mesenteric ischemia, and others Plan for EKG, CBC, BMP, BNP, troponin, viral testing, UA. Initial symptomatic management with Dilaudid. Will order a chest x-ray given primary respiratory symptoms reported and daughter localizes pain mostly to left chest. Disposition pending further workup here. Iris Ly PA-C ED Course as of 08/27/23301 Julianna Aug 26, 20232032 ATTENDING: I personally saw the patient, performed damian elements of the visit, and supervised patient care with the hat model. MDM: with CAD, previous CABG, HFpEF who presented with left sided chest/flank pain ongoing for past month but worsening. Plan for labs, imaging with dispositionpending. [MB] 2035 Pt is requesting something for nausea. [SP] 2121 Reevaluated the patient [SP] 2305 Sign out received, assumed care at this time. 77F CAD s/p CABG, HFpEF, flank pain and cough. Pending CT PE with abdomen run off. Anticipate discharge [KT] WedAug 27, 20237 Re-evaluated patient, updated family on presence of stone. Waiting on urine, patient will try now, if not able will straight cath. Anticipate admission for pain control [KT] 0145 UA Conditional UC: Clean Catch(!) Consistent with infected stone with nitrites and moderate leuks. Will order antibiotics. Will page for admission [KT] 0235 Admission: After reviewing and discussing the patient's presentation, emergency department course and work up, admission was recommended and agreed upon. Discussed patient with hospital medicinewho accepted the patient. Requesting Urology consult [KT] 0301 Urology recommending patient be kept NPO and will be likely taken for a stent later this morning. Recommends calling urology to take her sooner if any change in her clinical status. [KT] ED Course User Index [KT] Yasmeen Andrade MD [MB] Garrett Aquino MD [SP] Iris Ly PA-C Clinical Impressions as of 08/27/23301 Nephrolithiasis Urinary tract infection with hematuria, site unspecified Flank pain MILITARY ANALYST * Sonali Seals RN - 08/26/2023 7:44 PM CST Pt arrives from home via ems. Per medic pt complaining of left rib pain. Pt took nitro x1 at home and pain worsened. Pt SR on monitor for medics, other vital signs stable en route. Pt given 75mcg fentanyl en route for pain. Upon arrival to ER pt is alert. Pt not answering questions, reports she is in too much pain. Worsening pain in left upper quadrant. Daughter is at bedside and is interpreting and answering for patient, Denies any recent falls or trauma. Cough for the past few weeks. Pt placed on full monitor. MILITARY ANALYST documented in this encounter Plan of Treatment Scheduled Referrals Name Type Priority Associated Diagnoses Orde r Schedule Primary Care Follow-up Referral Routine Complicated UTI (urinary tract infection) Hydronephrosis, unspecified hydronephrosis type Left ureteral stone Ordered: 08/29/2023 Urology Referral - Adults Referral Routine Complicated UTI (urinary tract infection) Hydronephrosis, unspecified hydronephrosis type Left ureteral stone Ordered: 08/29/2023 documented as of this encounter Procedures Procedure Name Priority Date/Time Associated Diagnosis Comments BASIC METABOLIC PANEL Routine 08/29/2023 6:55 AM LEAD MILITARY ANALYST COMPLETE BLOOD COUNT-NO DIFF Routine 08/29/2023 6:55 AM LEAD MILITARY ANALYST IV INSERTION(LAB TO PERFORM) STAT 08/28/2023 11:55 AM LEAD MILITARY ANALYST BLOOD CULTURE Routine 08/28/2023 9:17 AM LEAD MILITARY ANALYST BLOOD CULTURE Routine 08/28/2023 9:17 AM LEAD MILITARY ANALYST BASIC METABOLIC PANEL Routine 08/28/2023 9:17 AM LEAD MILITARY ANALYST COMPLETE BLOOD COUNT-NO DIFF Routine 08/28/2023 9:17 AM LEAD MILITARY ANALYST LACTATE Routine 08/28/2023 9:17 AM LEAD MILITARY ANALYST BLOOD CULTURE Routine 08/28/2023 9:15 AM LEAD MILITARY ANALYST BLOOD CULTURE Routine 08/28/2023 9:15 AM LEAD MILITARY ANALYST LACTATE STAT 08/27/2023 9:18 PM LEAD MILITARY ANALYST XR C-ARM 1-1.5 HOURS Routine 08/27/2023 8:16 AM LEAD MILITARY ANALYST GLUCOSE, WHOLE BLOOD POCT Routine 08/27/2023 8:16 AM LEAD MILITARY ANALYST CYSTOSCOPIC PLACEMENT URETERAL STENT (SDEX) Same Day Recovery 08/27/2023 7:22 AM LEAD MILITARY ANALYST Left ureteral stone GLUCOSE, WHOLE BLOOD POCT Routine 08/27/2023 6:09 AM LEAD MILITARY ANALYST TYPE AND SCREEN STAT 08/27/2023 5:09 AM LEAD MILITARY ANALYST ANTIBODY SCREEN STAT 08/27/2023 5:09 AM LEAD MILITARY ANALYST BLOOD TYPE STAT 08/27/2023 5:09 AM LEAD MILITARY ANALYST LIVER PANEL(HEPATIC FUNCTION PANEL) STAT 08/27/2023 5:08 AM LEAD MILITARY ANALYST BASIC METABOLIC PANEL STAT 08/27/2023 5:08 AM LEAD MILITARY ANALYST COMPLETE BLOOD COUNT-NO DIFF STAT 08/27/2023 5:08 AM LEAD MILITARY ANALYST INR/PROTIME STAT 08/27/2023 5:08 AM LEAD MILITARY ANALYST URINE CULTURE STAT 08/27/2023 12:35 AM LEAD MILITARY ANALYST UA CONDITIONAL UC STAT 08/27/2023 12:35 AM [address]ITARY A[address]LYST CT ANGIO CHEST AND CT ABD PELVIS W IV CONT STAT 08/26/2023 11:01 PM LEAD MILITARY ANALYST D DIMER, QUANTITATIVE STAT 08/26/2023 8:54 PM LEAD MILITARY ANALYST 02027 ELECTROCARDIOGRAM TRACING STAT 08/26/2023 8:49 PM LEAD MILITARY ANALYST XR PORTABLE CHEST 1 VIEW STAT 08/26/2023 7:54 PM LEAD MILITARY ANALYST RSV, MOLECULAR DETECTION STAT 08/26/2023 7:44 PM LEAD MILITARY ANALYST INFLUENZA VIRUS A AND B, MOLECULAR DETECTION STAT 08/26/2023 7:44 PM LEAD MILITARY ANALYST 2019 NOVEL CORONAVIRUS STAT 7:44 PM LEAD MILITARY ANALYST COVID/INFLUENZA A&B/RSV STAT 08/26/19 7:44 PM LEAD MILITARY ANALYST BT SECOND DRAW Routine 08/26/2023 7:42 PM LEAD MILITARY ANALYST BRAIN NATRIURETIC PEPTIDE (BNP) STAT 08/26/2023 7:42 PM LEAD MILITARY ANALYST BASIC METABOLIC PANEL STAT 08/26/2023 7:42 PM LEAD MILITARY ANALYST TROPONIN I Specified Time 08/26/2023 7:42 PM LEAD MILITARY ANALYST COMPLETE BLOOD COUNT-NO DIFF STAT 08/26/2023 7:42 PM LEAD MILITARY ANALYST documented in this encounter Results * (ABNORMAL) Basic Metabolic Panel (08/29/2023 6:55 AM LEAD MILITARY ANALYST) Sodium 139 136 - 145 mmol/L 08/29/2023 7:39 AM [facility] Potassium 4.0 3.5 - 5.1 mmol/L 08/29/2023 7:39 AM [facility] Chloride 108 98 - 109 mmol/L 08/29/2023 7:39 AM [facility] CO2 25 20 - 29 mmol/L 08/29/2023 7:39 AM [facility] Anion Gap 6(L) 7 - 16 mmol/L 08/29/2023 7:39 AM [facility] Calcium 8.5 8.4 - 10.4 mg/dL 08/29/2023 7:39 AM [facility] BUN 12 7 - 26 mg/dL 08/29/2023 7:39 AM [facility] Creatinine 0.68 0.55 - 1.02 mg/dL 08/29/2023 7:39 AM [facility] Glucose 99 70 - 100 mg/dL 08/29/2023 7:39 AM [facility] Comment:The given reference range is for the fasting state. Non-fasting reference range for glucose is 70 - 180 mg/dL. GFR, Estimated >60 >60 mL/min/1.7 3m2 08/29/2023 7:39 AM [facility] Blood Venipuncture / Unknown 08/29/2023 6:55 AM LEAD MILITARY ANALYST 08/29/2023 7:08 AM LEAD MILITARY ANALYST Shannan Bender PA-C LAB_[id number] [place] [address] * (ABNORMAL) Complete Blood Count-No Diff (08/29/2023 6:55 AM LEAD MILITARY ANALYST) WBC 6.6 3.5 - 10.5 x10(9)/L 08/29/2023 7:14 AM [facility] RBC 4.25 3.90 - 5.03 x10(12)/L 08/29/2023 7:14 AM [facility] Hemoglobin 10.6(L) 12.0 - 15.5 g/dL 08/29/2023 7:14 AM [facility] HCT 35.4 34.9 - 44.5 % 08/29/2023 7:14 AM [facility] MCV 83.3 80.0 - 100.0 fL 08/29/2023 7:14 AM [facility] MCH 24.9(L) 27.6 - 33.3 pg 08/29/2023 7:14 AM [facility] MCHC 29.9(L) 31.5 - 35.2 g/dL 08/29/2023 7:14 AM [facility] RDW 18.1(H) 11.9 - 15.5 % 08/29/2023 7:14 AM [facility] Platelets 146(L) 150 - 450 x10(9)/L 08/29/2023 7:14 AM [facility] Automated NRBC 0 <=0 /100 WBC 08/29/2023 7:14 AM [facility] Blood Venipuncture / Unknown 08/29/2023 6:55 AM LEAD MILITARY ANALYST 08/29/2023 7:08 AM LEAD MILITARY ANALYST Shannan C Bender PA-C LAB_1 Performing Organization Address [facility]/ZIP Co de Phone Number [address] * IV Insertion, LST Perform (08/28/2023 11:55 AM LEAD MILITARY ANALYST) IV INSERTION, LST PERFORM (LAB) Done 08/28/2023 2:00 PM [facility] Other Specimen Type IV Start / Unknown 08/28/2023 11:55 AM LEAD MILITARY ANALYST 08/28/2023 12:28 PM LEAD MILITARY ANALYST Shannan Thomas Yulia ATKINS LAB_1 Performing Organization Address [facility] [facility] Co de Phone Number [address] * (ABNORMAL) Basic Metabolic Panel (08/28/2023 9:17 AM LEAD MILITARY ANALYST) [facility] Sodium 141 136 - 145 mmol/L 08/28/2023 9:53 AM [facility] Potassium 4.0 3.5 - 5.1 mmol/L 08/28/2023 9:53 AM [facility] Chloride 110(H) 98 - 109 mmol/L 08/28/2023 9:53 AM [facility] CO2 24 20 - 29 mmol/L 08/28/2023 9:53 AM [facility] Anion Gap 7 7 - 16 mmol/L 08/28/2023 9:53 AM [facility] Calcium 8.7 8.4 - 10.4 mg/dL 08/28/2023 9:53 AM [facility] BUN 17 7 - 26 mg/dL 08/28/2023 9:53 AM [facility] Creatinine 0.80 0.55 - 1.02 mg/dL 08/28/2023 9:53 AM [facility] Glucose 145(H) 70 - 100 mg/dL 08/28/2023 9:53 AM [facility] Comment:The given reference range is for the fasting state. Non-fasting reference range for glucose is 70 - 180 mg/dL. GFR, Estimated >60 >60 mL/min/1.7 3m2 08/28/2023 9:53 AM [facility] Blood Venipuncture / Unknown 08/28/2023 9:17 AM LEAD MILITARY ANALYST 08/28/2023 9:22 AM LEAD MILITARY ANALYST Shannan Bender PA-C LAB_[address] * (ABNORMAL) Complete Blood Count-No Diff (08/28/2023 9:17 AM LEAD MILITARY ANALYST) WBC 6.6 3.5 - 10.5 x10(9)/L 08/28/2023 9:29 AM [facility] RBC 4.55 3.90 - 5.03 x10(12)/L 08/28/2023 9:29 AM [facility] Hemoglobin 11.4(L) 12.0 - 15.5 g/dL 08/28/2023 9:29 AM [facility] HCT 38.6 34.9 - 44.5 % 08/28/2023 9:29 AM [facility] MCV 84.8 80.0 - 100.0 fL 08/28/2023 9:29 AM [facility] MCH 25.1(L) 27.6 - 33.3 pg 08/28/2023 9:29 AM [facility] MCHC 29.5(L) 31.5 - 35.2 g/dL 08/28/2023 9:29 AM [facility] RDW 18.6(H) 11.9 - 15.5 % 08/28/2023 9:29 AM [facility] Platelets 167 150 - 450 x10(9)/L 08/28/2023 9:29 AM [facility] Automated NRBC 0 <=0 /100 WBC 08/28/2023 9:29 AM [facility] Blood Venipuncture / Unknown 08/28/2023 9:17 AM LEAD MILITARY ANALYST 08/28/2023 9:22 AM LEAD MILITARY ANALYST Shannan Bender PA-C LAB_[address] * Blood Culture (08/28/2023 9:17 AM LEAD MILITARY ANALYST) Blood Culture No Growth at 5 Days RH LAB ETEST METHOD 09/02/2023 10:01 AM LEAD MILITARY ANALYST [facility] Blood VENIPUNCTURE / Unknown Venipuncture / Unknown 08/28/2023 9:17 AM LEAD MILITARY ANALYST 08/28/2023 9:22 AM LEAD MILITARY ANALYST Shannan Bender PA-C LAB_1 Performing Organization Address City/[facility] Co de Phone Number [address] * (ABNORMAL) Lactate (08/28/2023 9:17 AM LEAD MILITARY ANALYST) Lactate 2.2(H) 0.5 - 2.0 mmol/L 08/28/2023 9:53 AM LEAD MILITARY ANALYST [facility] Blood Venipuncture / Unknown 08/28/2023 9:17 AM LEAD MILITARY ANALYST 08/28/2023 9:22 AM LEAD MILITARY ANALYST Narrative [facility] - 08/28/2023 9:53 AM LEAD MILITARY ANALYST Reference range for healthy individuals when sepsis is not suspected is 0.5-2.2 mmol/L Shannan Bender PA-C LAB_1 Performing Organization Address [facility]/ZIP Co de Phone Number [address] * Blood Culture (08/28/2023 9:15 AM LEAD MILITARY ANALYST) Blood Culture No Growth at 5 Days RH LAB ETEST METHOD 09/02/2023 10:01 AM [facility] Blood VENIPUNCTURE / Unknown Venipuncture / Unknown 08/28/2023 9:15 AM LEAD MILITARY ANALYST 08/28/2023 9:22 AM LEAD MILITARY ANALYST Shannan Bender PA-C LAB_1 Performing Organization Address City/[facility]/ZIP Co de Phone Number [address] * (ABNORMAL) Lactate (08/27/2023 9:18 PM LEAD MILITARY ANALYST) Lactate 3.0(H) 0.5 - 2.0 mmol/L 08/27/2023 9:42 PM LEAD MILITARY ANALYST [facility] Blood Venipuncture / Unknown 08/27/2023 9:18 PM LEAD MILITARY ANALYST 08/27/2023 9:22 PM LEAD MILITARY ANALYST Narrative [facility] - 08/27/2023 9:42 PM LEAD MILITARY ANALYST Reference range for healthy individuals when sepsis is not suspected is 0.5-2.2 mmol/L Veronica Monique DO LAB_1 Performing Organization Address [facility] de Phone Number [address] * XR C-Arm 1-1.5 Hours (08/27/2023 8:16 AM LEAD MILITARY ANALYST) Anatomical Region Laterality Modality X-Ray Angiograph y Narrative 08/27/2023 8:17 AM LEAD MILITARY ANALYST Fluoroscopy provided by a development technologist. Exact fluoroscopy time is documented in end of exam information in EPIC Francoise Pozo MD RAD GD * Glucose, Whole Blood POCT (08/27/2023 8:16 AM LEAD MILITARY ANALYST) Glucose, Whole Blood 105 70 - 180 mg/dL 08/27/2023 8:23 AM [facility] Performing Location [facility] PACU 08/27/2023 8:23 AM LEAD MILITARY ANALYST [facility] Blood 08/27/2023 8:16 AM LEAD MILITARY ANALYST 08/27/2023 8:23 AM LEAD MILITARY ANALYST Shannan Bender PA-C LAB_1 Performing Organization Address [facility] Co de Phone Number [address] * Glucose, Whole Blood POCT (08/27/2023 6:09 AM LEAD MILITARY ANALYST) Glucose, Whole Blood 130 70 - 180 mg/dL 08/27/2023 6:10 AM LEAD MILITARY ANALYST [facility] POCT Comment 1 MD/RN Notified 08/27/2023 6:10 AM [facility] Performing Location LAB W3 08/27/2023 6:10 AM [facility] Blood 08/27/2023 6:09 AM LEAD MILITARY ANALYST 08/27/2023 6:10 AM LEAD MILITARY ANALYST Interface Provider LAB_[address] * Antibody Screen (08/27/2023 5:09 AM LEAD MILITARY ANALYST) Antibody Screen Interpretation Negative 08/27/2023 6:05 AM LEAD MILITARY ANALYST [facility] Blood Venipuncture / Unknown 08/27/2023 5:09 AM LEAD MILITARY ANALYST 08/27/2023 5:12 AM LEAD MILITARY ANALYST Filemon Rachel MD LAB_1 Performing Organization Address [facility]/ZIP Co de Phone Number [facility] [address] [place] [address] * Blood Type (08/27/2023 5:09 AM LEAD MILITARY ANALYST) ABO O 08/27/2023 6:05 AM [facility] RH Positive 08/27/2023 6:05 AM [facility] Blood Venipuncture / Unknown 08/27/2023 5:09 AM LEAD MILITARY ANALYST 08/27/2023 5:12 AM LEAD MILITARY ANALYST Filemon Rachel MD LAB_1 Performing Organization Address [facility] Co de Phone Number [facility] [address] [place] [address] * (ABNORMAL) Liver Panel(Hepatic Function Panel) (08/27/2023 5:08 AM LEAD MILITARY ANALYST) Alkaline Phosphatase 124 40 - 150 U/L 08/27/2023 5:45 AM [facility] Bilirubin, Total 0.4 0.2 - 1.2 mg/dL 08/27/2023 5:45 AM [facility] Bilirubin, Direct 0.2 0.0 - 0.5 mg/dL 08/27/2023 5:45 AM [facility] AST (SGOT) 16 10 - 40 U/L 08/27/2023 5:45 AM [facility] ALT (SGPT) 11 <=55 U/L 08/27/2023 5:45 AM [facility] Protein, Total 6.0(L) 6.4 - 8.3 g/dL 08/27/2023 5:45 AM [facility] Albumin 2.9(L) 3.5 - 5.0 g/dL 08/27/2023 5:45 AM [facility] Blood Venipuncture / Unknown 08/27/2023 5:08 AM LEAD MILITARY ANALYST 08/27/2023 5:12 AM LEAD MILITARY ANALYST Filemon Rachel MD LAB_1 Performing Organization Address [facility]/ZIP Co de Phone Number [address] * INR/Protime (08/27/2023 5:08 AM LEAD MILITARY ANALYST) Protime 13.5 11.8 - 14.6 Seconds 08/27/2023 5:28 AM [facility] INR 1.0 0.9 - 1.1 08/27/2023 5:28 AM [facility] Blood Venipuncture / Unknown 08/27/2023 5:08 AM LEAD MILITARY ANALYST 08/27/2023 5:12 AM LEAD MILITARY ANALYST Narrative [facility] - 08/27/2023 5:28 AM LEAD MILITARY ANALYST Therapeutic range determined by protocol established by anticoagulation provider. Filemon Rachel MD LAB_1 Performing Organization Address [facility] Co de Phone Number [address] * (ABNORMAL) Complete Blood Count-No Diff (08/27/2023 5:08 AM LEAD MILITARY ANALYST) WBC 6.3 3.5 - 10.5 x10(9)/L 08/27/2023 5:23 AM [facility] RBC 4.43 3.90 - 5.03 x10(12)/L 08/27/2023 5:23 AM [facility] Hemoglobin 11.0(L) 12.0 - 15.5 g/dL 08/27/2023 5:23 AM [facility] HCT 36.6 34.9 - 44.5 % 08/27/2023 5:23 AM [facility] MCV 82.6 80.0 - 100.0 fL 08/27/2023 5:23 AM [facility] MCH 24.8(L) 27.6 - 33.3 pg 08/27/2023 5:23 AM [facility] MCHC 30.1(L) 31.5 - 35.2 g/dL 08/27/2023 5:23 AM [facility] RDW 18.6(H) 11.9 - 15.5 % 08/27/2023 5:23 AM [facility] Platelets 192 150 - 450 x10(9)/L 08/27/2023 5:23 AM [facility] Automated NRBC 0 <=0 /100 WBC 08/27/2023 5:23 AM [facility] Blood Venipuncture / Unknown 08/27/2023 5:08 AM LEAD MILITARY ANALYST 08/27/2023 5:12 AM LEAD MILITARY ANALYST Filemon Rachel MD LAB_[id number] [place] [address] * (ABNORMAL) Basic Metabolic Panel (08/27/2023 5:08 AM LEAD MILITARY ANALYST) Sodium 138 136 - 145 mmol/L 08/27/2023 5:45 AM [facility] Potassium 3.3(L) 3.5 - 5.1 mmol/L 08/27/2023 5:45 AM [facility] Chloride 106 98 - 109 mmol/L 08/27/2023 5:45 AM [facility] CO2 23 20 - 29 mmol/L 08/27/2023 5:45 AM [facility] Anion Gap 9 7 - 16 mmol/L 08/27/2023 5:45 AM [facility] Calcium 8.6 8.4 - 10.4 mg/dL 08/27/2023 5:45 AM [facility] BUN 24 7 - 26 mg/dL 08/27/2023 5:45 AM [facility] Creatinine 1.14(H) 0.55 - 1.02 mg/dL 08/27/2023 5:45 AM [facility] Glucose 144(H) 70 - 100 mg/dL 08/27/2023 5:45 AM [facility] Comment:The given reference range is for the fasting state. Non-fasting reference range for glucose is 70 - 180 mg/dL. GFR, Estimated 49(L) >60 mL/min/1.7 3m2 08/27/2023 5:45 AM [facility] Blood Venipuncture / Unknown 08/27/2023 5:08 AM LEAD MILITARY ANALYST 08/27/2023 5:12 AM LEAD MILITARY ANALYST [facility] - 08/27/2023 5:45 AM LEAD MILITARY ANALYST The National Kidney Disease Education Program suggests measuring Cystatin C in patients with eGFRcrea of 45 to 59 ml/min/1.73^2 who do not have other markers of kidney damage (i.e. elevated urine Albumin/Creatinine Ratio or a prior Cystatin C confirming the presence of chronic kidney disease). Filemon Rachel MD LAB_1 [place] [address], [facility] * (ABNORMAL) Urine Culture (08/27/2023 12:35 AM LEAD MILITARY ANALYST) Urine Culture Growth(A) 08/29/2023 8:29 AM [facility] Urine Culture >100,000 CFU/mL Escherichia coli 08/29/2023 8:29 AM [facility] Urine URINE SPECIMEN COLLECTION, CLEAN CATCH / Unknown Non-blood Collection / Unknown 08/27/2023 12:35 AM LEAD MILITARY ANALYST 08/27/2023 1:29 AM LEAD MILITARY ANALYST Narrative Organism Antibiotic Method Susceptibility Escherichia coli Ampicillin/Sulbactam 8 mcg/mL: Susceptible Escherichia coli Piperacillin/Tazobactam 4 mcg/mL: Susceptible Escherichia coli Cefazolin 2 mcg/mL: Susceptible Escherichia coli Cefazolin (Urine) Susceptible Comment:Predicts paulie eptibility to most oral cephalosporins for treatment of infections from a urine source. Escherichia coli Ceftriaxone <=1 mcg/mL: Susceptible Escherichia coli Cefepime <=1 mcg/mL: Susceptible Escherichia coli Ciprofloxacin <=0.25 mcg/mL: Susceptible Escherichia coli Levofloxacin <=0.5 mcg/mL: Susceptible Escherichia coli Ertapenem <=0.25 mcg/mL: Susceptible Escherichia coli Meropenem <=0.5 mcg/mL: Susceptible Escherichia coli Tobramycin <=2 mcg/mL: Susceptible Escherichia coli Trimethoprim/Sulfamethoxazole <=0.5 mcg/mL: Susceptible Escherichia coli Nitrofurantoin 32 mcg/mL: Susceptible Escherichia coli Cefoxitin <=4 mcg/mL: Susceptible Escherichia coli Gentamicin <=2 mcg/mL: Susceptible Escherichia coli Cefotetan Escherichia coli Cefuroxime <=4 mcg/mL: Susceptible Escherichia coli Minocycline Iris Ly PA-C LAB_[address] [address], [facility] * (ABNORMAL) UA Conditional UC: Clean Catch (08/27/2023 12:35 AM LEAD MILITARY ANALYST) Urine Culture Comment Urinalysis results meet criteria for reflex, culture performed. 08/27/2023 1:34 AM [facility] Urine Color Light-Yellow 08/27/2023 1:34 AM [facility] Urine Clarity Clear Clear 08/27/2023 1:34 AM [facility] Specific [place], Urine 1.023 <1.030 08/27/2023 1:34 AM [facility] PH Urine 5.5 5.0 - 8.0 08/27/2023 1:34 AM [facility] Protein, Urine Qual (mg/dL) Negative Negative, 10 , 20 08/27/2023 1:34 AM [facility] Glucose Urine Qual (mg/dL) Normal (Negative) Normal (Negative), 30 , 50 08/27/2023 1:34 AM [facility] Ketones, Urine (mg/dL) Negative Negative, Trace 08/27/2023 1:34 AM [facility] Urobilinogen, Urine (EU/dL) Normal (Negative) Normal (Negative) 08/27/2023 1:34 AM [facility] Bilirubin Urine (mg/dL) Negative Negative 08/27/2023 1:34 AM [facility] Blood, Urine (mg/dL) 1.0 (Large)(A) Negative, 0.03 (Trace) 08/27/2023 1:34 AM [facility] Nitrite Urine 2+ (Positive)(A) Negative 08/27/2023 1:34 AM [facility] Leukocyte Esterase, Urine (Ant/uL) 250 (Moderate)(A) Negative, 25 (Trace) 08/27/2023 1:34 AM [facility] Red Blood Cells 28(H) 0 - 3 /HPF 08/27/2023 1:34 AM [facility] White Blood Cells 23(H) 0 - 5 /HPF 08/27/2023 1:34 AM LEAD MILITARY ANALYST [facility] Bacteria Few(A) None Seen /HPF 08/27/2023 1:34 AM [facility] Squamous Epithelial Cells Occasional None Seen, Occasional, Few /HPF 08/27/2023 1:34 AM [facility] Mucus Present(A) None Seen /HPF 08/27/2023 1:34 AM [facility] Hyaline Casts 6(H) <=2 /LPF 08/27/2023 1:34 AM [facility] Urine Source Clean Catch 08/27/2023 1:34 AM [facility] Urine URINE SPECIMEN COLLECTION, CLEAN CATCH / Unknown Non-blood Collection / Unknown 08/27/2023 12:35 AM LEAD MILITARY ANALYST 08/27/2023 12:41 AM LEAD MILITARY ANALYST Narrative [facility] - 08/27/2023 1:34 AM LEAD MILITARY ANALYST The qualitative interpretive guidance provided (e.g., small, moderate, large) is intended to aid in quantitative result interpretation. It is not itself an FDA-cleared test result. Iris Ly PA-C LAB_1 Performing Organization Address City/State/[facility] Co de Phone Number [address] * CT Angio Chest And CT Abd Pelvis W IV Cont (08/26/2023 11:01 PM LEAD MILITARY ANALYST) Anatomical Region Laterality Modality Abdomen, Pelvis, Chest, Lung, Vascular Computed Tomography 08/26/2023 11:0 1 PM LEAD MILITARY ANALYST Narrative 08/26/2023 11:47 PM LEAD MILITARY ANALYST EXAM: CT ANGIO CHEST AND CT ABD PELVIS W IV CONT LOCATION: [facility] DATE: 08/26/2023 INDICATION: Left sided chest pain, LUQ pain, positive d-dimer, DISSECTION (AORTA) COMPARISON: None. TECHNIQUE: CT angiogram chest and routine CT abdomen pelvis with IV contrast. Arterial phase through the chest and venous phase through the abdomen and pelvis. 2D and 3D MIP reconstructions were preformed by the staff cytotechnologist. Dose reduction techniques were used. CONTRAST: IOHEXOL [...] CT ABD PELVIS W IV CONT LOCATION: [facility] DATE: 08/26/2023 INDICATION: Left sided [...] (ABNORMAL) D Dimer, Quantitative (08/26/2023 8:54 PM LEAD MILITARY ANALYST) D Dimer, Quant 0.98(H) <=0.50 ug/mL FEU 08/26/2023 9:13 PM LEAD MILITARY ANALYST [facility] Blood Venipuncture / Unknown 08/26/2023 8:54 PM LEAD MILITARY ANALYST 08/26/2023 8:57 PM LEAD MILITARY ANALYST Narrative [facility] - 08/26/2023 9:13 PM LEAD MILITARY ANALYST A D-dimer level <=0.50 ug/mL FEU in [...] increasing clot age. Iris Ly PA-C LAB_[address] * ECG 12-Lead STAT (08/26/2023 8:49 PM LEAD MILITARY ANALYST) Ventricular Rate 64 BPM [facility] Atrial Rate 64 BPM [facility] P-R Interval 156 ms [facility] QRS Duration 164 ms [facility] QT 476 ms M[facility] QTc 491 ms M[facility] P [employer] 11 degrees MUSE GHP R [employer] 12 degrees MUSE GHP T [employer] 12 degrees MUSE GHP 08/26/2023 8:49 PM LEAD MILITARY ANALYST Narrative [facility] - 08/27/2023 8:50 AM LEAD MILITARY ANALYST Sinus rhythm Right bundle branch block Abnormal ECG No previous ECGs available Confirmed by Barbara Posadas ([id number]) on 08/27/2023 8:49:56 AM Procedure Note Barbara Posadas MD - 08/27/2023 Sinus rhythm Right bundle branch block Abnormal ECG No previous ECGs available Confirmed by Barbara Posadas ([id number]) on 08/27/2023 8:49:56 AM Iris GASTON-William EKG MUSE G[facility] [address] [place] [address] * XR Portable Chest 1 View (08/26/2023 7:54 PM LEAD MILITARY ANALYST) Anatomical Region Laterality Modality Chest, Lung Computed Radiogr aphy 08/26/2023 7:54 PM LEAD MILITARY ANALYST Narrative 08/26/2023 8:26 PM LEAD MILITARY ANALYST EXAM: XR PORTABLE CHEST 1 VIEW LOCATION: [facility] DATE: 08/26/2023 INDICATION: Cough. Left flank pain. COMPARISON: 05/30/2014. IMPRESSION: Mild opacity at the left lung base in the retrocardiac region may be related to atelectasis or infection. The lungs are otherwise clear. No pneumothorax. Sternotomy. Pulmonary vascularity is within normal limits. Aortic calcification. Procedure Note Filemon Gibbs MD - 08/26/2023 EXAM: XR PORTABLE CHEST 1 VIEW LOCATION: [facility] DATE: 08/26/2023 INDICATION: Cough. Left flank pain. COMPARISON: 05/30/2014. IMPRESSION: Mild opacity at the left lung base in the retrocardiac regionmay be related to atelectasis or infection. The lungs are otherwise clear.No pneumothorax. Sternotomy. Pulmonary vascularity is within normallimits. Aortic calcification. Iris GASTON-C RAD PORTABLE * RSV RNA, Molecular Detection (08/26/2023 7:44 PM LEAD MILITARY ANALYST) RSV by PCR Not Detected Not Detected 08/26/2023 8:34 PM LEAD MILITARY ANALYST [facility] Swab (Source Required) (Nasopharyngeal swab) Non-blood Collection / Unknown 08/26/2023 7:44 PM LEAD MILITARY ANALYST 08/26/2023 7:53 PM LEAD MILITARY ANALYST Narrative [facility] - 08/26/2023 8:34 PM LEAD MILITARY ANALYST Method: Qualitative real-time PCR assay to detect RSV Viral RNA. Iris GASTON-C LAB_1 Performing Organization Address [facility]/ZIP Co de Phone Number [address] * Influenza A and B by PCR (08/26/2023 7:44 PM LEAD MILITARY ANALYST) [facility] INFLUENZA A MOLECULAR Not Detected Not Detected 08/26/2023 8:34 PM LEAD MILITARY ANALYST [facility] INFLUENZA B MOLECULAR Not Detected Not Detected 08/26/2023 8:34 PM LEAD MILITARY ANALYST [facility] Swab (Source Required) (Nasopharyngeal swab) Non-blood Collection / Unknown 08/26/2023 7:44 PM LEAD MILITARY ANALYST 08/26/2023 7:53 PM LEAD MILITARY ANALYST [facility] 08/26/2023 8:34 PM LEAD MILITARY ANALYST Methodology: ??Qualitative real-time PCR assay to detect the Influenza type A and type B viral RNA Iris GASTON-C LAB_1 Performing Organization Address [facility] Co de Phone Number [address] * 2019 Novel Coronavirus (COVID-19) (08/26/2023 7:44 PM LEAD MILITARY ANALYST) [facility] COVID-19 Interpretation Not Detected Not Detected 08/26/2023 8:34 PM LEAD MILITARY ANALYST [facility] Source Nasopharyngeal swab 08/26/2023 8:34 PM LEAD MILITARY ANALYST [facility] Swab (Source Required) (Nasopharyngeal swab) Non-blood Collection / Unknown 08/26/2023 7:44 PM LEAD MILITARY ANALYST 08/26/2023 7:53 PM LEAD MILITARY ANALYST [facility] 08/26/2023 8:34 PM LEAD MILITARY ANALYST Test performed by real-time PCR. This test has been authorized by the FDA under an Emergency Use Authorization (EUA) for use by authorized laboratories. Iris GASTON-C LAB_1 Performing Organization Address [facility] Co de Phone Number [address] * Blood Type second draw (08/26/2023 7:42 PM LEAD MILITARY ANALYST) ABO O 08/27/2023 6:05 AM LEAD MILITARY ANALYST [facility] RH Positive 08/27/2023 6:05 AM LEAD MILITARY ANALYST [facility] Blood Venipuncture / Unknown 08/26/2023 7:42 PM LEAD MILITARY ANALYST 08/27/2023 5:35 AM LEAD MILITARY ANALYST Cassie Barton MD LAB_1 [facility] [address] [place] [address] * (ABNORMAL) B-Type Natriuretic Peptide (08/26/2023 7:42 PM LEAD MILITARY ANALYST) B Type Natr. Peptide 249(H) <=99 pg/mL 08/26/2023 8:24 PM LEAD MILITARY ANALYST [facility] Blood Venipuncture / Unknown 08/26/2023 7:42 PM LEAD MILITARY ANALYST 08/26/2023 7:54 PM LEAD MILITARY ANALYST Iris Ly PA-C LAB_1 Performing Organization Address City/[facility] Co de Phone Number [address] * Troponin I (08/26/2023 7:42 PM LEAD MILITARY ANALYST) Pathologist [facility] Troponin I 0.02 0.00 - 0.03 ng/mL 08/26/2023 8:29 PM LEAD MILITARY ANALYST [facility] Blood Venipuncture / Unknown 08/26/2023 7:42 PM LEAD MILITARY ANALYST 08/26/2023 7:54 PM LEAD MILITARY ANALYST Iris Ly PA-C LAB_1 Performing Organization Address City/[facility]/ZIP Co de Phone Number [address] * (ABNORMAL) Basic Metabolic Panel (08/26/2023 7:42 PM LEAD MILITARY ANALYST) Pathologist [facility] Sodium 139 136 - 145 mmol/L 08/26/2023 8:25 PM LEAD MILITARY ANALYST [facility] Potassium 3.5 3.5 - 5.1 mmol/L 08/26/2023 8:25 PM [facility] Chloride 104 98 - 109 mmol/L 08/26/2023 8:25 PM [facility] CO2 26 20 - 29 mmol/L 08/26/2023 8:25 PM [facility] Anion Gap 9 7 - 16 mmol/L 08/26/2023 8:25 PM [facility] Calcium 9.0 8.4 - 10.4 mg/dL 08/26/2023 8:25 PM [facility] BUN 23 7 - 26 mg/dL 08/26/2023 8:25 PM [facility] Creatinine 0.98 0.55 - 1.02 mg/dL 08/26/2023 8:25 PM [facility] Glucose 148(H) 70 - 100 mg/dL 08/26/2023 8:25 PM [facility] Comment:The given reference range is for the fasting state. Non-fasting reference range for glucose is 70 - 180 mg/dL. GFR, Estimated 59(L) >60 mL/min/1.7 3m2 08/26/2023 8:25 PM [facility] Blood Venipuncture / Unknown 08/26/2023 7:42 PM [employer] 08/26/2023 7:54 PM [facility] - 08/26/2023 8:25 PM [employer] The National Kid[employer] Disease Education Program suggests measuring Cystatin C in patients with eGFRcrea of 45 to 59 ml/min/1.73^2 who do not have other markers of kidney damage (i.e. elevated urine Albumin/Creatinine Ratio or a prior Cystatin C confirming the presence of chronic kidney disease). Iris Ly PA-C LAB_[id number] [address], [facility] * (ABNORMAL) Complete Blood Count -no Diff (08/26/2023 7:42 PM [employer]) WBC 7.4 3.5 - 10.5 x10(9)/L 08/26/2023 7:58 PM [facility] RBC 4.69 3.90 - 5.03 x10(12)/L 08/26/2023 7:58 PM [facility] Hemoglobin 11.6(L) 12.0 - 15.5 g/dL 08/26/2023 7:58 PM [facility] HCT 38.2 34.9 - 44.5 % 08/26/2023 7:58 PM [facility] MCV 81.4 80.0 - 100.0 fL 08/26/2023 7:58 PM [facility] MCH 24.7(L) 27.6 - 33.3 pg 08/26/2023 7:58 PM [facility] MCHC 30.4(L) 31.5 - 35.2 g/dL 08/26/2023 7:58 PM [facility] RDW 18.7(H) 11.9 - 15.5 % 08/26/2023 7:58 PM [facility] Platelets 196 150 - 450 x10(9)/L 08/26/2023 7:58 PM [facility] Automated NRBC 0 <=0 /100 WBC 08/26/2023 7:58 PM [facility] Blood Venipuncture / Unknown 08/26/2023 7:42 PM [employer] 08/26/2023 7:54 PM [employer] [facility] Ly PA-C LAB_1 Performing Organization Address [facility]/State/[facility] [place] [address], [facility] documented in this encounter Visit Diagnoses Diagnosis Left ureteral stone- Primary Nephrolithiasis Calculus of kidney Urinary tract infection with hematuria, site unspecified Flank pain Abdominal pain, unspecified site Complicated UTI (urinary tract infection) Urinary tract infection, site not specified Hydronephrosis, unspecified hydronephrosis type Left ureteral stone Coronary artery disease (HRC) Coronary atherosclerosis of unspecified type of vessel, [place] or graft Hydronephrosis Complicated UTI (urinary tract infection) Urinary tract infection, site not specified Essential hypertension (HRC) Unspecified essential hypertension * Plan of Care - Agustina Parks RN - 08/29/2023 2:00 PM CST [facility] Discharge Note - Nursing Admission Date/Time: 08/26/2023 7:06 PM Attending MD: Patient discharged: to Home. Discharge Date: 08/29/2023 Discharge Time: 2:04 PM Patient accompanied by: relative, son. Transported by: Wheelchair Valuables were taken home by patient: Yes Discharge instructions given and explained to patient: Yes and with son. Tried to call Daughter Derbut no answer and cannot leave voicemail. Discharge Patient Education Plan completed, taught, and [...] stored: Yes --- End of Report --- MILITARY ANALYST * Plan of Care - Deion Thurman RN - 08/29/2023 7:00 AM CST Pt is alert and oriented x4. Hmong speaking. Lung sounds are CTA, VSS. On RA with sats above 90%. Denies CP, SOB and N/V. IV abx given per AUG. Tele is SB w/ IVCDs, HR in the 50's . Indwelling cath patent and intact. Call light w/in reach. Bed alarm on for safety. MILITARY ANALYST * Plan of Care - Rasheeda Ovalle RN - 08/28/2023 11:09 PM CST Pt A&Ox3, make needs known. Denies pain, SOB, CP, N/V. [place]aver patent draining yellow urine. No bm this shift, offered stool softener but pt decline. Interpretor used as needed. Call light within reach. MILITARY ANALYST * Plan of Care - Evy Guillen RN - 08/28/2023 11:04 AM CST [facility] Care Management Screening Insurance Coverage: Payor: MEDICARE / Plan: MEDICARE / Product Type: Medicare / Primary Care Provider: No Primary/Referring Admission Info: Cognitive capacity prior to admission: oriented Independent with ADLs (Prior to Admission)? Yes Living Environment: Living Arrangements (select all that apply): Spouse/significant other, Adult children Follow Up: Please consult CM/SW if needs arise Additional Comments: Patient's chart was reviewed and per care connection rounds, No care management/social work discharge needs were identified. Anticipate patient will discharge home once medically cleared. Please contact the family member caretaker or child welfare social worker assigned to the treatment team if care coordination is identified. Alma Guillen preservationist [phone] MILITARY ANALYST * Plan of Care - Deion Thurman RN - 08/28/2023 7:00 AM CST Pt is alert and oriented x3. Disoriented to time. Hmong speaking. Lung sounds are CTA, VSS. On RA with sats above 90%. Denies CP, SOB and N/V. IV abx given per order. Indwelling cath patent and intact. Output dark steven. Tele is SB w/ IVCDs, HR in the 50's. Patient is able to communicate needs and call light is within reach. Bed alarm on for safety. 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 Denies pain/ discomfort . Tele sinus cecilia. Slept most evening . Ate 50% dinner tolerated well. LR infused per AUG. Penelope in place. Pt hypotensive this evening. Fluid intake encouraged MD aware. Call light within reach. Bed alarm on for safety . BP 122/59 (BP Cuff Size: Regular) Pulse 64 Temp 98 ??F (36.7 ??C) (Oral) Resp 16 Ht 5' 3 (1.6 m) Wt 58.4 kg (128 lb 11.2 oz) SpO2 94% BMI 22.80 kg/m?? MILITARY ANALYST * Plan of Care - Jose Miramontes RN - 08/27/2023 9:00 PM CST [facility]. Practitioner Notified Note Name of Practitioner notified: Giancarlo rose( Veronica Monique MD) Time of Practitioner notification: 20:32 Reason: recheck BP Response: sent MILITARY ANALYST * Plan of Care - Jose Miramontes RN - 08/27/2023 7:04 PM CST [facility]. Practitioner Notified Note Name of Practitioner notified: Giancarlo rose(Veronica Monique MD) Time of Practitioner notification: 7:05 PM Reason: [id number] M Anila, pt BP is low 80/47.Oral fluid encourage and LR infusing. please advise. Thx! Response: Increase current LR infusing rate & recheck BP MILITARY ANALYST * Plan of Care - Agustina Parks RN - 08/27/2023 1:19 PM CST Pt returned to unit after 0900, drowsy but arousal. C/o left side flank pain with movement. Given tylenol with some relief. Encourage PO intake, pt would state that she does not want to drink too much because she does not want to get up to use the bathroom. RN explained/educate that she had a catheter in place, pt understood. Pt slept majority of the shift. Bolus fluid given on shift. Bed alarm on, safety check throughout shift. MILITARY ANALYST documented in this encounter Admitting Diagnoses Diagnosis Left ureteral stone documented in this encounter Administered Medications Inactive Administered Medications - up to 3 most recent administrations Medication Order MAR Action Action Date Dose Rate Site acetaminophen (TYLENOL) tablet 1,000 mg 1,000 mg, Oral, TID, First dose (after last modification) on Wed08/27/23 at 1400, Last dose on Wed08/29/23 at 0800, For 2 days, Initially give acetaminophen for patient with mild pain. Acetaminophen may be given WITH other pain medications as adjunct pain relief. Do not give two acetaminophen containing medications within 4 hours of each other. Given 08/29/2023 7:42 AM LEAD MILITARY ANALYST 1,000 mg Given 08/28/2023 8:31 PM LEAD MILITARY ANALYST 1,000 mg Given 08/28/2023 1:43 PM LEAD MILITARY ANALYST 1,000 mg acetaminophen (TYLENOL) tablet 650 mg 650 mg, Oral, Q6H PRN, Pain/Fever, Initially give acetaminophen for patient with mild pain., Starting on Wed08/27/23 at 0352, Until Wed08/27/23 at 1141, Initially give acetaminophen for patient with mild pain. Acetaminophen may be given WITH other pain medications as adjunct pain relief. Do not give two acetaminophen containing medications within 4 hours of each other. Given 08/27/2023 9:24 AM LEAD MILITARY ANALYST 65 0 mg bisacodyl (DULCOLAX) rectal suppository 10 mg 10 mg, Rectal, DAILY PRN, Constipation, No stool in the last 3 days, Starting on Wed08/27/23 at 0352, Until Wed08/29/23 at 1604, Cumulative bowel medication orders. Administer based on [...] platelet count is 50 k/cmm or less. cefTRIAXone (ROCEPHIN) 2 g in sodium chloride 0.9 % 100 mL IVPB 2 g, Intravenous, Administer over 30 Minutes, ONCE, On Wed08/27/23 at 0215, For 1 dose, Do NOT infuse in same line with Lactated Ringers (LR), TPN, or other calcium-containing IV solutions due to incompatibility. Started 08/27/2023 2:06 AM LEAD MILITARY ANALYST 2 g cefTRIAXone (ROCEPHIN) 2 g in sodium chloride 0.9 % 100 mL IVPB 2 g, Intravenous, Administer over 30 Minutes, Q24H (NON-STND), First dose on Wed08/28/23 at 0100, Do NOT infuse in same line with Lactated Ringers (LR), TPN, or other calcium-containing IV solutions due to incompatibility. Started 08/29/2023 1:25 AM LEAD MILITARY ANALYST 2 g Started 08/28/2023 1:33 AM LEAD MILITARY ANALYST 2 g clopidogrel (PLAVIX) tablet 75 mg 75 mg, Oral, DAILY, First dose on Wed08/27/23 at 0800, Until Discontinued Given 08/29/2023 7:42 AM LEAD MILITARY ANALYST 75 mg Given 08/28/2023 8:52 AM LEAD MILITARY ANALYST 75 mg gabapentin (NEURONTIN) capsule 300 mg 300 mg, Oral, TID, First dose on Wed08/27/23 at 0800, Until Discontinued Given 08/29/2023 7:42 AM LEAD MILITARY ANALYST 300 mg Given 08/28/2023 8:31 PM LEAD MILITARY ANALYST 300 mg Given 08/28/2023 1:43 PM LEAD MILITARY ANALYST 300 mg HYDROmorphone (DILAUDID) injection 0.5 mg 0.5 mg, Intravenous, ONCE, On Julianna 08/26/23 at 2000, For 1 dose Given 08/26/2023 7:53 PM LEAD MILITARY ANALYST 0.5 mg ketorolac (TORADOL) injection 15 mg 15 mg, Intravenous, ONCE, On Wed08/27/23 at 0000, For 1 dose, . Given 08/26/2023 11:49 PM LEAD MILITARY ANALYST 15 mg lactated ringers infusion Intravenous, at 100 mL/hr, CONTINUOUS, Starting on Wed08/27/23 at 0330 Restarted 08/27/2023 7:34 AM LEAD MILITARY ANALYST Started 08/27/2023 4:41 AM LEAD MILITARY ANALYST 100 mL/hr lactated ringers IV bolus 1,000 mL 1,000 mL, Intravenous, Administer over 3 Hours, ONCE, On Wed08/27/23 at 1200, For 1 dose Started 08/27/2023 12:17 PM LEAD MILITARY ANALYST 1,000 mL lactated ringers IV bolus 1,000 mL 1,000 mL, Intravenous, Administer over 5 Hours, ONCE, On Wed08/27/23 at 1600, For 1 dose Started 08/27/2023 3:46 PM LEAD MILITARY ANALYST 1,000 mL lactated ringers IV bolus 1,000 mL 1,000 mL, Intravenous, Administer over 3 Hours, ONCE, On 08/28/23 at 1115, For 1 dose Started 08/28/2023 12:27 PM LEAD MILITARY ANALYST 1,000 mL lactated ringers IV bolus 500 mL 500 mL, Intravenous, Administer over 2 Hours, ONCE, On Wed08/29/23 at 1015, For 1 dose Started 08/29/2023 10:17 AM LEAD MILITARY ANALYST 500 mL lisinopril (ZESTRIL) tablet 2.5 mg 2.5 mg, Oral, DAILY, First dose on Wed08/27/23 at 0800, Until Discontinued, On hold since Wed08/27/2023 at 1143 until manually unheld Given 08/27/2023 9:24 AM LEAD MILITARY ANALYST 2.5 mg metoprolol succinate (TOPROL XL) extended release tablet 12.5 mg 12.5 mg, Oral, DAILY, First dose on Wed08/27/23 at 0800, Until Discontinued, Tablet may be split in half, but not crushed., On hold since [facility] 08/28/2023 at 0824 until manually unheld Given 08/27/2023 9:24 AM LEAD MILITARY ANALYST 12.5 mg ondansetron (ZOFRAN) injection 4 mg 4 mg, Intravenous, ONCE, On Julianna 08/26/23 at 2100, For 1 dose Given 08/26/2023 8:47 PM LEAD MILITARY ANALYST 4 mg oxyCODONE (ROXICODONE) immediate release tablet 2.5-5 mg 2.5-5 mg, Oral, Q4H PRN, Pain, Starting on Wed08/27/23 at 1351, Until Wed08/29/[address] (PROTONIX) tablet 40 mg 40 mg, Oral, DAILY, First dose on Wed08/27/23 at 0800, Until Discontinued, Tablet should be swallowed whole. Best when taken before a meal, but may be taken with food. Given 08/29/2023 7:42 AM LEAD MILITARY ANALYST 40 mg Given 08/28/2023 8:52 AM LEAD MILITARY ANALYST 40 mg Given 08/27/2023 9:25 AM LEAD MILITARY ANALYST 40 mg polyethylene glycol (MIRALAX) oral powder 17 g 17 g, Oral, DAILY PRN, Constipation, No stool in the last 2 days, Starting on Wed08/27/23 at 0352, Until Wed08/29/23 at 1604, Cumulative bowel medication orders. Administer based on [...] day, begin regimen again until patient stools. potassium bicarbonate-citric acid (EFFER-K) effervescent tablet 40 mEq 40 mEq, Oral, QDAY PC, First dose on Wed08/27/23 at 1200, Last dose on Wed08/28/23 at 0900, For 2 doses, Dissolve tablets completely in 3 to 4 ounces of cold/ice water or juice. May further dilute if GI adverse effects occur. May take 3-4 minutes to completely dissolve. Given 08/28/2023 8:51 AM LEAD MILITARY ANALYST 40 mEq Given 08/27/2023 1:05 PM LEAD MILITARY ANALYST 40 mEq rosuvastatin (CRESTOR) tablet 10 mg 10 mg, Oral, DAILY, First dose on Wed08/27/23 at 0800, Until Discontinued Given 08/29/2023 7:42 AM LEAD MILITARY ANALYST 10 mg Given 08/28/2023 8:52 AM LEAD MILITARY ANALYST 10 mg Given 08/27/2023 9:24 AM LEAD MILITARY ANALYST 10 mg senna (SENOKOT) tablet 2 Tablet 2 Tablet, Oral, BID PRN, Constipation, No stool in the last day, Starting on Wed08/27/23 at 0352, Until Wed08/29/23 at 1604, Cumulative bowel medication orders. Administer based on [...] day, begin regimen again until patient stools. documented in this encounter Active and Recently Administered Medications Times are shown in LEAD MILITARY ANALYST. Scheduled Medication Order 08/27/2023 08/28/2023 08/29/2023 acetaminophen (TYLENOL) tablet 1,000 mg (COMPLETED) 1,000 mg, Oral, TID, First dose (after last modification) on Wed08/27/23 at 1400, Last dose on Wed08/29/23 at 0800, For 2 days, Initially give acetaminophen for patient with mild pain. Acetaminophen may be given WITH other pain medications as adjunct pain relief. Do not give two acetaminophen containing medications within 4 hours of each other. 1432 (Given - Provider: Agustina Parks, RN)2019 (Given - Provider: Jose Miramontes RN) 0852 (Given - Provider: Maddie Farley, NEGIN)1343 (Given - Provider: Maddie Farley, NEGIN)2031 (Given - Provider: Rasheeda Ovalle, NEGIN) 0742 (Given - Provider: Agustina Parks RN) ceFAZolin (ANCEF) 2 g in sodium chloride 0.9 % 50 mL IVPB ADS (COMPLETED) 2 g, Intravenous, Administer over 30 Minutes, ONCE (NON-SCHEDULED), Starting on Wed08/27/23 at 0553, For 1 dose, For patient weight less than or equal to 119 kg PRE-OP, Pre-op 0750 (Started - Provider: Rob Tabor APRN, ACQUISITIONS ASSISTANT) cefTRIAXone (ROCEPHIN) 2 g in sodium chloride 0.9 % 100 mL IVPB (COMPLETED) 2 g, Intravenous, Administer over 30 Minutes, ONCE, On Wed08/27/23 at 0215, For 1 dose, Do NOT infuse in same line with Lactated Ringers (LR), TPN, or other calcium-containing IV solutions due to incompatibility. 0206 (Started - Provider: Yunior Varghese RN)0340 (Infused - Provider: Galina Pete RN) cefTRIAXone (ROCEPHIN) 2 g in sodium chloride 0.9 % 100 mL IVPB 2 g, Intravenous, Administer over 30 Minutes, Q24H (NON-STND), First dose on Wed08/28/23 at 0100, Do NOT infuse in same line with Lactated Ringers (LR), TPN, or other calcium-containing IV solutions due to incompatibility. 0133 (Started - Provider: Deion Thurman RN)0222 (Infused - Provider: Deion Thurman RN) 0125 (Started - Provider: Deion Thurman RN)0222 (Infused - Provider: Deion Thurman RN) clopidogrel (PLAVIX) tablet 75 mg 75 mg, Oral, DAILY, First dose on Wed08/27/23 at 0800, Until Discontinued 0503 (Held by provider in Manage Orders - Provider: Garrett Serna MD - Reason: Per Practitioner: Pre-procedure hold, practitioner must Unhold after procedure )0800 (Automatically Held - Provider: Garrett Serna MD)1327 (Unheld by provider in Manage Orders - Provider: ANA LUISA FaganC - Reason: Other-Give dose at next scheduled time as shown below) 0852 (Given - Provider: Maddie Farley RN) 0742 (Given - Provider: Agustina Parks RN) furosemide (LASIX) tablet 20 mg 20 mg, Oral, DAILY, First dose on Wed08/27/23 at 0800, Until Discontinued, On hold since Wed08/27/2023 at 0352 until manually unheld 0352 (Held by provider in Manage Orders - Provider: Garrett Serna MD - Reason: Per Practitioner: Pre-procedure hold, practitioner must Unhold after procedure )0800 (Automatically Held) 0800 (Automatically Held) 0800 (Automatically Held)1604 (Unheld by provider in Manage Orders - Provider: Md Higuera Template [facility]) gabapentin (NEURONTIN) capsule 300 mg 300 mg, Oral, TID, First dose on Wed08/27/23 at 0800, Until Discontinued 0925 (Given - Provider: Agustina Parks RN)1432 (Given - Provider: Agustina Parks RN)2019 (Given - Provider: Jose Miramontes RN) 0852 (Given - Provider: Maddie Farley RN)1343 (Given - Provider: Maddie Farley RN)2031 (Given - Provider: Rasheeda Ovalle RN) 0742 (Given - Provider: Agustina Parks RN)1400 (Due) lactated ringers IV bolus 1,000 mL (COMPLETED) 1,000 mL, Intravenous, Administer over 3 Hours, ONCE, On Wed08/27/23 at 1200, For 1 dose 1217 (Started - Provider: Agustina Parks RN)1534 (Infused - Provider: Jose Miramontes RN) lactated ringers IV bolus 1,000 mL (COMPLETED) 1,000 mL, Intravenous, Administer over 5 Hours, ONCE, On Wed08/27/23 at 1600, For 1 dose 1546 (Started - Provider: Jose Miramontes RN)2002 (Infused - Provider: Jose Miramontes RN) lactated ringers IV bolus 1,000 mL (COMPLETED) 1,000 mL, Intravenous, Administer over 3 Hours, ONCE, On 08/28/23 at 1115, For 1 dose 1227 (Started - Provider: Maddie Farley RN)1552 (Infused - Provider: Rasheeda Ovalle RN) lactated ringers IV bolus 500 mL (COMPLETED) 500 mL, Intravenous, Administer over 2 Hours, ONCE, On Wed08/29/23 at 1015, For 1 dose 1017 (Started - Provider: Agustina Parks RN)1220 (Infused - Provider: Agustina Parks RN) lisinopril (ZESTRIL) tablet 2.5 mg 2.5 mg, Oral, DAILY, First dose on Wed08/27/23 at 0800, Until Discontinued, On hold since Wed08/27/2023 at 1143 until manually unheld 0924 (Given - Provider: Agustina Parks RN)1143 (Held by provider in Manage Orders - Provider: Shannan Bender PA-C - Reason: Per Practitioner: Acute Kidney Injury) 0800 (Automatically Held - Provider: Shannan Bender PA-C) 0800 (Automatically Held - Provider: Shannan Bender PA-C)1604 (Unheld by provider in Manage Orders - Provider: Md Davida Ruiz [facility]) metoprolol succinate (TOPROL XL) extended release tablet 12.5 mg 12.5 mg, Oral, DAILY, First dose on Wed08/27/23 at 0800, Until Discontinued, Tablet may be split in half, but not crushed., On hold since Wed08/28/2023 at 0824 until manually unheld 0924 (Given - Provider: Agustina Parks RN) 0824 (Held by provider in Manage Orders - Provider: Shannan Bender PA-C - Reason: Per Practitioner: Hypotension or Allow permissive hypertension in acute stroke )0857 (Not Given - Provider: Maddie Farley RN - Reason: Other (Enter Reason in Comment Area) - Comment: held by the provider) 0800 (Automatically Held - Provider: Shannan Bender PA-C)1604 (Unheld by provider in Manage Orders - Provider: Inpatient Template [facility]) pantoprazole DR (PROTONIX) tablet 40 mg 40 mg, Oral, DAILY, First dose on Wed08/27/23 at 0800, Until Discontinued, Tablet should be swallowed whole. Best when taken before a meal, but may be taken with food. 0925 (Given - Provider: Agustina Parks RN) 0852 (Given - Provider: Maddie Farley RN) 0742 (Given - Provider: Agustina Parks RN) potassium bicarbonate-citric acid (EFFER-K) effervescent tablet 40 mEq (COMPLETED) 40 mEq, Oral, QDAY PC, First dose on Wed08/27/23 at 1200, Last dose on Wed08/28/23 at 0900, For 2 doses, Dissolve tablets completely in 3 to 4 ounces of cold/ice water or juice. May further dilute if GI adverse effects occur. May take 3-4 minutes to completely dissolve. 1305 (Given - Provider: Agustina Parks RN) 0851 (Given - Provider: Maddie Farley RN) rosuvastatin (CRESTOR) tablet 10 mg 10 mg, Oral, DAILY, First dose on Wed08/27/23 at 0800, Until Discontinued 0924 (Given - Provider: Agustina Parks RN) 0852 (Given - Provider: Maddie Farley RN) 0742 (Given - Provider: Agustina Parks RN) Continuous Medication Order 08/27/2023 08/28/2023 08/29/2023 lactated ringers infusion (CANCELED) Intravenous, at 100 mL/hr, CONTINUOUS, Starting on Wed08/27/23 at 0330 0441 (Started - Provider: Lisa Moore RN)0733 (Stopped - Provider: Rob Tabor APRN, VALERI - Comment: Switch to gravity)0734 (Restarted - Provider: Rob Tabor APRN, ACQUISITIONS ASSISTANT)0810 (Infused - Provider: Rob Tabor APRN, VALERI) PRN Medication Order 08/27/2023 08/28/202308/29/2023 acetaminophen (TYLENOL) tablet 650 mg (CANCELED) 650 mg, Oral, Q6H PRN, Pain/Fever, Initially give acetaminophen for patient with mild pain., Starting on Wed08/27/23 at 0352, Until Wed08/27/23 at 1141, Initially give acetaminophen for patient with mild pain. Acetaminophen may be given WITH other pain medications as adjunct pain relief. Do not give two acetaminophen containing medications within 4 hours of each other. 923 (Given - Provider: Agustina Parks RN) benzocaine-menthol (Chloraseptic) lozenge 1 Lozenge 1 Lozenge, Oral, Q2H PRN, Throat Pain, Cough, Starting on Wed08/27/23 at 0352, Until Wed08/29/23 at 1604 bisacodyl (DULCOLAX) rectal suppository 10 mg(Linked Group 1) 10 mg, Rectal, DAILY PRN, Constipation, No stool in the last 3 days, Starting on Wed08/27/23 at 0352, Until Wed08/29/23 at 1604, Cumulative bowel medication orders. Administer based on [...] Q4H PRN, Heartburn, Upset Stomach, Starting on Wed08/27/23 at 0352, Until Wed08/29/23 at 1604, For indigestion/upset stomach iohexol (OMNIPAQUE 350) 350 MG/ML injection (CANCELED) ONCE PRN, Starting on Wed08/27/23 at 0753, Until Wed08/27/23 at 0843, Intra-op 0753 (Given - Provider: Mira Price MD - Comment: Dispensed to sterile field.) lubricant (SURGILUBE/KY JELLY) gel (CANCELED) ONCE PRN, Starting on Wed08/27/23 at 0753, Intra-op 0753 (Given - Provider: Mira Price MD - Comment: On sterile field.) melatonin tablet 6 mg 6 mg, Oral, HS PRN, Sedation, Starting on Wed08/27/23 at 0352, Until 08/29/23 at 1604 oxyCODONE (ROXICODONE) immediate release tablet 2.5-5 mg 2.5-5 mg, Oral, Q4H PRN, Pain, Starting on Wed08/27/23 at 1351, Until 08/29/23 at 1604 polyethylene glycol (MIRALAX) oral powder 17 g(Linked Group 1) 17 g, Oral, DAILY PRN, Constipation, No stool in the last 2 days, Starting on Wed08/27/23 at 0352, Until 08/29/23 at 1604, Cumulative bowel medication orders. Administer based on [...] stool in the last day, Starting on Wed08/27/23 at 0352, Until 08/29/23 at 1604, Cumulative bowel medication orders. Administer based on [...] day, begin regimen again until patient stools. Linked Groups Order Group 1: senna (SENOKOT) tablet 2 TabletJump to med 2 Tablet, Oral, BID PRN, Constipation, No stool in the last day, Starting on Wed08/27/23 at 0352, Until 08/29/23 at 1604, Cumulative bowel medication orders. Administer based on [...] in the last 2 days, Starting on Wed08/27/23 at 0352, Until 08/29/23 at 1604, Cumulative bowel medication orders. Administer based on [...] in the last 3 days, Starting on Wed08/27/23 at 0352, Until 08/29/23 at 1604, Cumulative bowel medication orders. Administer based on [...] platelet count is 50 k/cmm or less. documented in this encounter Additional Health Concerns Infection Onset Date Last Indicated Resolved Time R/O COVID19 08/26/2023 08/26/2023 08/26/2023 8:34 PM LEAD MILITARY ANALYST documented as of this encounter Care Teams Charge Master Analyst Relationship Specialty Start Date End Date No Primary/Referring, Phy PCP - General 08/26/23 documented as of this encounter
--- OUTSIDE RECORDS SUMMARY | 2023-11-04 22:50 | XMS_ITS | Encounter Summary ---
Author Name Unknown Organization [facility] Address [address], [place] [address] Care Team Providers Care Interior Assemblies Installer Name Role Phone No Primary/Referring, Phy Primary Care Provider Unavailable Reason for Referral * Procedure/Equipment (Routine) - Incomplete Specialty Diagnoses / Procedures Referred By Alfonso killian Referred To Contact Diagnoses Left ureteral stone Procedures Case Request OR - Urology Surgery: CYSTOSCOPIC PLACEMENT URETERAL STENT Mira Price MD [address] [place] [address] Referral ID Status Reason Start Date Expiration Date V isits Requested Visits Authorized [id number] Incomplete 08/27/2023 11/25/2024 1 1 TECH Encounter Details Date Type Department Care Team (Late st Contact Info) Description 08/27/2023 Prep for Surgery UROLOGY IP SERVICE [address] [place] [id number] Mira Price MD [address] [place] [id number] Left ureteral stone (Primary Dx) Social History [...] Primary documented in this encounter Care Teams Interior Assemblies Installer Relationship Specialty Start Date End Date No Primary/Referring, Laureny PCP - General 08/26/23 documented as of this encounter
--- OUTSIDE RECORDS SUMMARY | 2023-11-04 22:50 | XMS_ITS | Encounter Summary ---
Author Name Unknown Organization [facility] Address [address] [place] [address] Care Team Providers Care Executive Housekeeper Name Role Phone No Primary/Referring, Phy Primary Care Provider Unavailable Encounter Details Date Type Department Care Team (Latest Contact Info) Description 08/26/2023 Orders Only [facility] DEPARTMENT Provider, [place] [address] Social History Tobacco Use Types Packs/Day Years Used Date Smoking Tobacco: Never Assessed Sex and Gender Information Value Date Recorded Sex Assigned at Not on file Gender Identity Not on file Sexual Orientation Not on file documented as of this encounter Plan of Treatment Not on file documented as of this encounter Procedures Procedure Name Priority Date/Time Associated Diagnosis Comments EKG 08/26/2023 documented in this encounter Results * EKG (08/26/2023) Interface Provider EKG documented in this encounter Visit Diagnoses Not on filedocumented in this encounter Additional Health Concerns Infection Onset Date Last Indicated Resolved Time R/O COVID19 08/26/2023 08/26/2023 08/26/2023 8:34 PM POWER PLANT ASSISTANT documented as of this encounter Care Teams Executive Housekeeper Relationship Specialty Start Date End Date No Primary/Referring, Laureny PCP - General 08/26/23 documented as of this encounter
--- OUTSIDE RECORDS SUMMARY | 2023-11-04 22:50 | XMS_ITS | Encounter Summary ---
Author Name Unknown Organization [facility] Address [address], [place] [address] Care Team Providers Care Insurance Account Executive Name Role Phone No Primary/Referring, Phy Primary Care Provider Unavailable Reason for Visit * Auth/Cert (Routine) Specialty Diagnoses / Procedures Referred By Contac t Referred To Contact Diagnoses Flank pain Nephrolithiasis Urinary tract infection with hematuria, site unspecified Nephrolithiasis Urinary tract infection with hematuria, site unspecified Flank pain Referral ID Status Reason Start Date Expiration Date Visits Re quested Visits Authorized [id number] 1 1 Encounter Details Date Type Department Care Team (Late st Contact Info) Description 08/26/2023 9:30 PM ANALYSIS MANAGER Ancillary Procedure [facility] [address] [address] Social History Tobacco Use Types Packs/Day Years Used Date Smoking Tobacco: Never Assessed Sex and Gender Information Value Date Recorded Sex Assigned at Not on file Gender Identity Not on file Sexual Orientation Not on file documented as of this encounter Plan of Treatment Not on file documented as of this encounter Procedures Procedure Name Priority Date/Time Associated Diagnosis Comments CT ANGIO CHEST AND CT ABD PELVIS W IV CONT STAT 08/26/2023 11:01 PM ANALYSIS MANAGER documented in this encounter Visit Diagnoses Not on filedocumented in this encounter Administered Medications Inactive Administered Medications - up to 3 most recent administrations Medication Order MAR Action Action Date Dose Rate Site iohexol (OMNIPAQUE 350) 350 MG/ML injection 100 mL 100 mL, Intravenous, ONCE, On Julianna 08/26/23 at 2330, For 1 dose Given 08/26/2023 11:02 PM ANALYSIS MANAGER 100 mL documented in this encounter Care Teams Insurance Account Executive Relationship Specialty Start Date End Date No Primary/Referring, Phy PCP - General 08/26/23 documented as of this encounter
--- OUTSIDE RECORDS SUMMARY | 2023-11-04 22:50 | XMS_ITS | Encounter Summary ---
Author Name Unknown Organization [facility] Address [address], [place] [address] Care Team Providers Care Extrusion Press Adjuster Name Role Phone No Primary/Referring, Phy Primary Care Provider Unavailable Reason for Visit * Reason Comments Pain * Auth/Cert (Routine) Specialty Diagnoses / Procedures Referred By Alfonso killian Referred To Contact Diagnoses Flank pain Nephrolithiasis Urinary tract infection with hematuria, site unspecified Nephrolithiasis Urinary tract infection with hematuria, site unspecified Flank pain Referral ID Status Reason Start Date Expiration Date Visits Re quested Visits Authorized [id number] 1 1 Encounter Details Date Type Department Care Team (Late st Contact Info) Description 08/27/2023 7:[address] FREIGHT BRAKE COUPLER - 08/27/2023 8:[address] [employer] BRAKE COUPLER Surgery Operating Room [address] [place] [id number] Mira Price MD [address] [place] [place] [address] [id number] Cystoscopy, Left retrograde pyelogram, Left ureteral stent placement (6 Sierra Leonean x 22 cm double J), Beaver catheter placement Social History Tobacco Use Types Packs/Day Years Used Date Smoking Tobacco: Never Assessed Sex and Gender Information Value Date Recorded Sex Assigned at Not on file Gender Identity Not on file Sexual Orientation Not on file documented as of this encounter Last Filed Vital Signs Vital Sign Reading Time Taken Comments Blood Pressure 125/62 08/27/2023 8:[address] F[employer] BRAKE COUPLER Pulse 58 08/27/2023 8:[address] [employer] BRAKE COUPLER Temperature 36.8 ??C (98.2 ??F) 08/27/2023 8:10 AM CS T Respiratory Rate 16 08/27/2023 8:[address] [employer]RE[employer] BRAKE COUPLER Oxygen Saturation 94% 08/27/2023 8:[address] [employer] BRAKE COUPLER Inhaled Oxygen Concentration - - Weight 58.4 kg (128 lb 11.2 oz) 08/27/2023 4:[address] [employer] BRAKE COUPLER Height 160 cm (5' 3) 08/27/2023 4:[address] [employer] BRAKE COUPLER Body Mass Index 22.8 08/27/2023 4:[address] [employer] BRAKE COUPLER documented in this encounter Discharge Summaries * Shannan Bender PA-C - 08/29/2023 1:25 PM CST General Medicine Service Discharge Summary Admit date: 08/26/2023 7:06 PM Discharge date: 08/29/2023 Date of Service: 08/29/2023 Service: General Medicine Professional belén interpretor used DAMIAN FOLLOW UP INFORMATION - [...] Bender PA-C Internal Medicine --End of Report-- [employer] BRAKE COUPLER documented in this encounter Discharge Instructions * Discharge Instructions* Agustina Parks RN - 08/27/2023 8:[address] FREIGHT BRAKE COUPLER CONTACT INFORMATION If it is after hours call the Careline at [phone]. [facility] Surgery: Please contact your clinic during regular [...] shoes or non-slip footwear inside the house FREIGHT BRAKE COUPLER * Discharge Instr - Safety* Agustina Parks RN - 08/29/2023 12:[address] FREIGHT BRAKE COUPLER Call your clinic or seek medical help if you have any sudden change in your condition or if you have any of the following: chest pain difficulty breathing fever greater than 101.3 degrees F pain not relieved with usual methods FREIGHT BRAKE COUPLER * Attachments The following attachments cannot be [...] from the original note were not included. [facility] Medicine Progress Note Patient Name: Sendy Moses [...] pending clinical stability overnight Shannan Bender PA-C [facility] FREIGHT BRAKE COUPLER * Shannan Bender PA-C - 08/27/2023 10:53 AM CST Images from the original note were not included. [facility] Medicine Progress Note Patient Name: Senyd Moses Attending: Shannan Bender PA-C Date of [...] Esterase, Urine (Ant/uL) 250 (Moderate) Abnormal Specific [place], Urine 1.023 Red Blood Cells 28 High [...] pending clinical stability overnight Shannan Bender PA-C [facility] FREIGHT BRAKE COUPLER * Mira Price MD - 08/27/2023 3:04 [...] placement can be expedited Mira Price MD FREIGHT BRAKE COUPLER documented in this encounter Procedure Notes * Mira Price MD - 08/27/2023 8:47 AM CST [facility] Operative Note Surgery Date: 08/27/2023 Surgeons and Role: * Mira Price MD - Primary Pre-op Diagnosis: * Left ureteral stone [N20.1] Post-op Diagnosis: * Left ureteral stone [N20.1] Procedure(s) (LRB): Cystoscopy Left retrograde pyelogram Left ureteral stent placement (6 Sierra Leonean x 22 cm double J) Beaver catheter [...] all were in agreement, including laterality. A 22-Sierra Leonean rigid cystoscope with 30?? lens was lubricated and inserted per urethra and advanced into the bladder with findings as noted above. The left ureteral orifice was identified and cannulated with a 5-Sierra Leonean open- ended ureteral access catheter, with the aid of a guidewire. After chip frier images of the pelvis and abdomen were taken, a gentle retrograde pyelogram was performed using diluted Isovue contrast for anatomic mapping of the collecting system. I personally performed and interpreted the retrograde pyelogram. Findings as noted above. The wire was then replaced and the 5-Sierra Leonean catheter removed. 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 Due to language barrier, an saw superintendent was present during the history-taking and subsequent [...] 0.9 % 100 mL IVPB 2 g [id number] (NS) Garrett Serna MD [Held by provider [...] Resource Strain: High Risk (06/28/2021) Received from [facility] Financial Resource Strain Difficulty of Paying Living [...] Consent was obtained with assistance of an saw superintendent. Mira Price MD 08/27/2023, 7:16 AM F[employer] BRAKE COUPLER documented in this encounter OR Notes * H&P - Garrett Serna MD - 08/27/2023 3:19 AM CST Images from the original note were not included. [facility] Medicine History & Physical Patient name: Sendy Moses : 1945 Date of Admission: 08/26/2023 7:06 PM Date of Service: 08/27/2023 Attending/Staff: Dr. Rachel Registered Nurse Supervisor Used: yes, patient is Hmong speaking. Daughter [...] Resource Strain: High Risk (06/28/2021) Received from [facility] Room 77 & [facility] Financial Resource Strain Difficulty of Paying Living [...] Dilaudid PRN for pain control - Continue POWER AND RECOVERY SHIFT ENGINEER gabapentin - Strict I/O - Follow up urine culture - If develops dyspnea, would add azithromycin and treat for CAP given left lower lobe opacity on CXR Chronic Issues: #CAD s/p CABG x3 in 2009 #CAD s/p CRYSTAL x4 in 10/2022 - Will hold plavix pre-procedurally, has been more than 6 months since CRYSTAL - Continue POWER AND RECOVERY SHIFT ENGINEER ASA - Continue POWER AND RECOVERY SHIFT ENGINEER Crestor 10mg daily #HFpEF - Not currently in exacerbation - BNP only mildly elevated, does not appear fluid up on exam - Continue POWER AND RECOVERY SHIFT ENGINEER lisinopril 2.5mg daily - Hold lasix preoperatively [...] AM. Garrett Serna MD PGY-2, Internal Medicine-Pediatrics FRE[employer] BRAKE COUPLER documented in this encounter ED Notes * Iris Ly PA-C - 08/26/2023 8:[address] [facility] Emergency Medicine Visit Note Chief Complaint: Pain HPI Sendy is a 77 y.o. old female with PMH of HFpEF, CAD s/p CABG x3, HLD who presents to the ED for evaluation of left chest and flank pain and cough Most of the history is provided by patient's daughter as patient refuses to answer most questions. Offered [facility] saw superintendent and they declined. Patient's daughter tells me [...] with medications. EMS gaveher 75 mcg fentanyl POWER AND RECOVERY SHIFT ENGINEER. They noted sinus bradycardia and mild HTN [...] Ly PA-C ED Course as of 08/27/23301 [facility] Aug 26, 20232032 ATTENDING: I personally saw the patient, performed damian elements of the visit, and supervised patient care with the anode machine operator. MDM: with CAD, previous CABG, HFpEF who [...] run off. Anticipate discharge [KT] WedAug 27, 2023 0007 Re-evaluated patient, updated family on presence of [...] infection with hematuria, site unspecified Flank pain FREIGHT BRAKE COUPLER * Sonali Seals RN - 08/26/2023 7:44 [...] few weeks. Pt placed on full monitor. FREIGHT BRAKE COUPLER documented in this encounter Plan of Treatment [...] BASIC METABOLIC PANEL Routine 08/29/2023 6:[address] FRE[employer] BRAKE COUPLER COMPLETE BLOOD COUNT-NO DIFF Routine 08/29/2023 6:[address] [employer] BRAKE COUPLER IV INSERTION(LAB TO PERFORM) STAT 08/28/2023 11:[address] [employer] BRAKE COUPLER BLOOD CULTURE Routine 08/28/2023 9:[address] [employer] BRAKE COUPLER BLOOD CULTURE Routine 08/28/2023 9:[address] F[employer] BRAKE COUPLER BASIC METABOLIC PANEL Routine 08/28/2023 9:[address] FRE[employer] BRAKE COUPLER COMPLETE BLOOD COUNT-NO DIFF Routine 08/28/2023 9:[address] FRE[employer] BRAKE COUPLER LACTATE Routine 08/28/2023 9:[address] FRE[employer] BRAKE COUPLER BLOOD CULTURE Routine 08/28/2023 9:[address] [employer]RE[employer] BRAKE COUPLER BLOOD CULTURE Routine 08/28/2023 9:[address] FREIGHT BRAKE COUPLER LACTATE STAT 08/27/2023 9:[address] FREIGHT BRAKE COUPLER XR C-ARM 1-1.5 HOURS Routine 08/27/2023 8:[address] FREIGHT BRAKE COUPLER GLUCOSE, WHOLE BLOOD POCT Routine 08/27/2023 8:[address] FREIGHT BRAKE COUPLER CYSTOSCOPIC PLACEMENT URETERAL STENT (SDEX) Same Day Recovery 08/27/2023 7:[address] FREIGHT BRAKE COUPLER Left ureteral stone GLUCOSE, WHOLE BLOOD POCT Routine 08/27/2023 6:[address] FREIGHT BRAKE COUPLER TYPE AND SCREEN STAT 08/27/2023 5:[address] FRE[employer] BRAKE COUPLER ANTIBODY SCREEN STAT 08/27/2023 5:[address] FREIGHT BRAKE COUPLER BLOOD TYPE STAT 08/27/2023 5:[address] FREIGHT BRAKE COUPLER LIVER PANEL(HEPATIC FUNCTION PANEL) STAT 08/27/2023 5:[address] FREIGHT BRAKE COUPLER BASIC METABOLIC PANEL STAT 08/27/2023 5:[address] FREIGHT BRAKE COUPLER COMPLETE BLOOD COUNT-NO DIFF STAT 08/27/2023 5:[address] FREIGHT BRAKE COUPLER INR/PROTIME STAT 08/27/2023 5:[address] FREIGHT BRAKE COUPLER URINE CULTURE STAT 08/27/2023 12:[address] FREIGHT BRAKE COUPLER UA CONDITIONAL UC STAT 08/27/2023 12:[address] FREIGHT BRAKE COUPLER CT ANGIO CHEST AND CT ABD PELVIS W IV CONT STAT 08/26/2023 11:[address] FREIGHT BRAKE COUPLER D DIMER, QUANTITATIVE STAT 08/26/2023 8:[address] FREIGHT BRAKE COUPLER [id number] ELECTROCARDIOGRAM TRACING STAT 08/26/2023 8:[address] FREIGHT BRAKE COUPLER XR PORTABLE CHEST 1 VIEW STAT 08/26/2023 7:[address] FREIGHT BRAKE COUPLER RSV, MOLECULAR DETECTION STAT 08/26/2023 7:[address] FREIGHT BRAKE COUPLER INFLUENZA VIRUS A AND B, MOLECULAR DETECTION STAT 08/26/2023 7:[address] FREIGHT BRAKE COUPLER 2019 NOVEL CORONAVIRUS STAT 7:[address] FREIGHT BRAKE COUPLER COVID/INFLUENZA A&B/RSV STAT 08/26/19 7:[address] FREIGHT BRAKE COUPLER BT SECOND DRAW Routine 08/26/2023 7:[address] FREIGHT BRAKE COUPLER BRAIN NATRIURETIC PEPTIDE (BNP) STAT 08/26/2023 7:[address] FREIGHT BRAKE COUPLER BASIC METABOLIC PANEL STAT 08/26/2023 7:[address] FREIGHT BRAKE COUPLER TROPONIN I Specified Time 08/26/2023 7:[address] FREIGHT BRAKE COUPLER COMPLETE BLOOD COUNT-NO DIFF STAT 08/26/2023 7:[address] FREIGHT BRAKE COUPLER documented in this encounter Results * (ABNORMAL) Basic Metabolic Panel (08/29/2023 6:[address] FREIGHT BRAKE COUPLER) [facility] Sodium 139 136 - 145 mmol/L 08/29/2023 7:39 AM [facility] Potassium 4.0 3.5 - 5.1 mmol/L 08/29/2023 7:39 AM [facility] Chloride 108 98 - 109 mmol/L 08/29/2023 7:39 AM [facility] CO2 25 20 - 29 mmol/L 08/29/2023 7:39 AM [facility] Anion Gap 6(L) 7 - 16 mmol/L 08/29/2023 7:39 AM [facility] Calcium 8.5 8.4 - 10.4 mg/dL 08/29/2023 7:39 AM [facility] BUN 12 7 - 26 mg/dL 08/29/2023 7:39 AM [facility] Creatinine 0.68 0.55 - 1.02 mg/dL 08/29/2023 7:39 AM [facility] Glucose 99 70 - 100 mg/dL 08/29/2023 7:39 AM [facility] Comment:The given reference range is for the fasting state. Non-fasting reference range for glucose is 70 - 180 mg/dL. GFR, Estimated >60 >60 mL/min/1.7 3m2 08/29/2023 7:39 AM [facility] Blood Venipuncture / Unknown 08/29/2023 6:[address] FREIGHT BRAKE COUPLER 08/29/2023 7:[address] FREIGHT BRAKE COUPLER Shannan Bender PA-C LAB_1 [place] [address], [facility] * (ABNORMAL) Complete Blood Count-No Diff (08/29/2023 6:[address] FREIGHT BRAKE COUPLER) WBC 6.6 3.5 - 10.5 x10(9)/L 08/29/2023 7:14 AM [facility] RBC 4.25 3.90 - 5.03 x10(12)/L 08/29/2023 7:14 AM [facility] Hemoglobin 10.6(L) 12.0 - 15.5 g/dL 08/29/2023 7:14 AM [facility] HCT 35.4 34.9 - 44.5 % 08/29/2023 7:14 AM [facility] MCV 83.3 80.0 - 100.0 fL 08/29/2023 7:14 AM [facility] MCH 24.9(L) 27.6 - 33.3 pg 08/29/2023 7:14 AM [facility] MCHC 29.9(L) 31.5 - 35.2 g/dL 08/29/2023 7:14 AM [facility] RDW 18.1(H) 11.9 - 15.5 % 08/29/2023 7:14 AM [facility] Platelets 146(L) 150 - 450 x10(9)/L 08/29/2023 7:14 AM [facility] Automated NRBC 0 <=0 /100 WBC 08/29/2023 7:14 AM [facility] Blood Venipuncture / Unknown 08/29/2023 6:[address] FREIGHT BRAKE COUPLER 08/29/2023 7:[address] FREIGHT BRAKE COUPLER Shannan Bender PA-C LAB_1 Performing Organization Address [facility]/ZIP Co de Phone Number [address] * IV Insertion, LST Perform (08/28/2023 11:[address] FREIGHT BRAKE COUPLER) IV INSERTION, LST PERFORM (LAB) Done 08/28/2023 2:00 PM [facility] Other Specimen Type IV Start / Unknown 08/28/2023 11:[address] FREIGHT BRAKE COUPLER 08/28/2023 12:[address] FREIGHT BRAKE COUPLER Shannan William Bender PA-C LAB_1 Performing Organization Address [facility] de Phone Number [address] * (ABNORMAL) Basic Metabolic Panel (08/28/2023 9:[address] FREIGHT BRAKE COUPLER) [facility] Sodium 141 136 - 145 mmol/L 08/28/2023 9:53 AM [facility] Potassium 4.0 3.5 - 5.1 mmol/L 08/28/2023 9:53 AM [facility] Chloride 110(H) 98 - 109 mmol/L 08/28/2023 9:53 AM [facility] CO2 24 20 - 29 mmol/L 08/28/2023 9:53 AM [facility] Anion Gap 7 7 - 16 mmol/L 08/28/2023 9:53 AM [facility] Calcium 8.7 8.4 - 10.4 mg/dL 08/28/2023 9:53 AM [facility] BUN 17 7 - 26 mg/dL 08/28/2023 9:53 AM [facility] Creatinine 0.80 0.55 - 1.02 mg/dL 08/28/2023 9:53 AM [facility] Glucose 145(H) 70 - 100 mg/dL 08/28/2023 9:53 AM [facility] Comment:The given reference range is for the fasting state. Non-fasting reference range for glucose is 70 - 180 mg/dL. GFR, Estimated >60 >60 mL/min/1.7 3m2 08/28/2023 9:53 AM [facility] Blood Venipuncture / Unknown 08/28/2023 9:[address] FREIGHT BRAKE COUPLER 08/28/2023 9:[address] FREIGHT BRAKE COUPLER Shannan Bender PA-C LAB_[address] * (ABNORMAL) Complete Blood Count-No Diff (08/28/2023 9:[address] FREIGHT BRAKE COUPLER) Pathologist [facility] WBC 6.6 3.5 - 10.5 x10(9)/L 08/28/2023 9:29 AM [facility] RBC 4.55 3.90 - 5.03 x10(12)/L 08/28/2023 9:29 AM [facility] Hemoglobin 11.4(L) 12.0 - 15.5 g/dL 08/28/2023 9:29 AM [facility] HCT 38.6 34.9 - 44.5 % 08/28/2023 9:29 AM [facility] MCV 84.8 80.0 - 100.0 fL 08/28/2023 9:29 AM [facility] MCH 25.1(L) 27.6 - 33.3 pg 08/28/2023 9:29 AM [facility] MCHC 29.5(L) 31.5 - 35.2 g/dL 08/28/2023 9:29 AM [facility] RDW 18.6(H) 11.9 - 15.5 % 08/28/2023 9:29 AM [facility] Platelets 167 150 - 450 x10(9)/L 08/28/2023 9:29 AM [facility] Automated NRBC 0 <=0 /100 WBC 08/28/2023 9:29 AM [facility] Blood Venipuncture / Unknown 08/28/2023 9:[address] FREIGHT BRAKE COUPLER 08/28/2023 9:[address] FREIGHT BRAKE COUPLER Shannan Bender PA-C LAB_1 Performing Organization Address City/[facility]/[place] [address], [facility] * Blood Culture (08/28/2023 9:[address] FREIGHT BRAKE COUPLER) Blood Culture No Growth at 5 Days RH LAB ETEST METHOD 09/02/2023 10:[address] FREIGHT BRAKE COUPLER [facility] Blood VENIPUNCTURE / Unknown Venipuncture / Unknown 08/28/2023 9:[address] FREIGHT BRAKE COUPLER 08/28/2023 9:[address] FREIGHT BRAKE COUPLER Shannan Bender PA-C LAB_1 Performing Organization Address [facility] Co de Phone Number [address] * (ABNORMAL) Lactate (08/28/2023 9:[address] FREIGHT BRAKE COUPLER) Lactate 2.2(H) 0.5 - 2.0 mmol/L 08/28/2023 9:53 AM [facility] Blood Venipuncture / Unknown 08/28/2023 9:[address] FREIGHT BRAKE COUPLER 08/28/2023 9:[address] FREIGHT BRAKE COUPLER Narrative [facility] 08/28/2023 9:[address] FREIGHT BRAKE COUPLER Reference range for healthy individuals when sepsis is not suspected is 0.5-2.2 mmol/L Shannan Bender PA-C LAB_1 Performing Organization Address [facility] Co de Phone Number [address] * Blood Culture (08/28/2023 9:[address] FREIGHT BRAKE COUPLER) Blood Culture No Growth at 5 Days RH LAB ETEST METHOD 09/02/2023 10:[address] FREIGHT BRAKE COUPLER [facility] Blood VENIPUNCTURE / Unknown Venipuncture / Unknown 08/28/2023 9:[address] FREIGHT BRAKE COUPLER 08/28/2023 9:[address] FREIGHT BRAKE COUPLER Shannan Bender PA-C LAB_1 Performing Organization Address [facility] Co de Phone Number [address] * (ABNORMAL) Lactate (08/27/2023 9:[address] FREIGHT BRAKE COUPLER) Lactate 3.0(H) 0.5 - 2.0 mmol/L 08/27/2023 9:[address] FREIGHT BRAKE COUPLER [facility] Blood Venipuncture / Unknown 08/27/2023 9:[address] FREIGHT BRAKE COUPLER 08/27/2023 9:[address] FREIGHT BRAKE COUPLER Narrative [facility] - 08/27/2023 9:[address] FREIGHT BRAKE COUPLER Reference range for healthy individuals when sepsis is not suspected is 0.5-2.2 mmol/L Veronica Monique DO LAB_1 Performing Organization Address [facility] [place] [address], [facility] * XR C-Arm 1-1.5 Hours (08/27/2023 8:[address] FREIGHT BRAKE COUPLER) Anatomical Region Laterality Modality X-Ray Angiograph y Narrative 08/27/2023 8:[address] FREIGHT BRAKE COUPLER Fluoroscopy provided by a operating room surgical technologist. Exact fluoroscopy time is documented in end of exam information in EPIC Francoise Pozo MD RAD GD * Glucose, Whole Blood POCT (08/27/2023 8:[address] FREIGHT BRAKE COUPLER) Glucose, Whole Blood 105 70 - 180 mg/dL 08/27/2023 8:[address] FREIGHT BRAKE COUPLER [facility] Performing Location LAB PACU 08/27/2023 8:23 AM [facility] Blood 08/27/2023 8:[address] FREIGHT BRAKE COUPLER 08/27/2023 8:[address] FREIGHT BRAKE COUPLER Shannan Bender PA-C LAB_1 Performing Organization Address [facility] [place] [address], [facility] * Glucose, Whole Blood POCT (08/27/2023 6:[address] FREIGHT BRAKE COUPLER) Glucose, Whole Blood 130 70 - 180 mg/dL 08/27/2023 6:10 AM [facility] POCT Comment 1 MD/RN Notified 08/27/2023 6:10 AM [facility] Performing Location LAB W3 08/27/2023 6:10 AM [facility] Blood 08/27/2023 6:[address] FREIGHT BRAKE COUPLER 08/27/2023 6:[address] FREIGHT BRAKE COUPLER Interface Provider LAB_[address] * Antibody Screen (08/27/2023 5:[address] FREIGHT BRAKE COUPLER) Antibody Screen Interpretation Negative 08/27/2023 6:[address] FREIGHT BRAKE COUPLER [facility] Blood Venipuncture / Unknown 08/27/2023 5:[address] FREIGHT BRAKE COUPLER 08/27/2023 5:[address] FREIGHT BRAKE COUPLER Filemon Rachel MD LAB_1 Performing Organization Address [facility]/ZIP Co de Phone Number [facility] [address] [place] [address] * Blood Type (08/27/2023 5:[address] FREIGHT BRAKE COUPLER) ABO O 08/27/2023 6:[address] FREIGHT BRAKE COUPLER [facility] RH Positive 08/27/2023 6:[address] FREIGHT BRAKE COUPLER [facility] Blood Venipuncture / Unknown 08/27/2023 5:[address] FREIGHT BRAKE COUPLER 08/27/2023 5:[address] FREIGHT BRAKE COUPLER Filemon Rachel MD LAB_1 Performing Organization Address [facility] Co de Phone Number [facility] [address] [place] [address] * (ABNORMAL) Liver Panel(Hepatic Function Panel) (08/27/2023 5:[address] FREIGHT BRAKE COUPLER) Alkaline Phosphatase 124 40 - 150 U/L 08/27/2023 5:[address] FREIGHT BRAKE COUPLER [facility] Bilirubin, Total 0.4 0.2 - 1.2 mg/dL 08/27/2023 5:45 AM [facility] Bilirubin, Direct 0.2 0.0 - 0.5 mg/dL 08/27/2023 5:45 AM [facility] AST (SGOT) 16 10 - 40 U/L 08/27/2023 5:45 AM [facility] ALT (SGPT) 11 <=55 U/L 08/27/2023 5:45 AM [facility] Protein, Total 6.0(L) 6.4 - 8.3 g/dL 08/27/2023 5:45 AM [facility] Albumin 2.9(L) 3.5 - 5.0 g/dL 08/27/2023 5:45 AM [facility] Blood Venipuncture / Unknown 08/27/2023 5:[address] FREIGHT BRAKE COUPLER 08/27/2023 5:[address] FREIGHT BRAKE COUPLER Filemon Rachel MD LAB_1 Performing Organization Address [facility]/ZIP Co de Phone Number [address] * INR/Protime (08/27/2023 5:[address] FREIGHT BRAKE COUPLER) Protime 13.5 11.8 - 14.6 Seconds 08/27/2023 5:28 AM [facility] INR 1.0 0.9 - 1.1 08/27/2023 5:28 AM [facility] Blood Venipuncture / Unknown 08/27/2023 5:[address] FREIGHT BRAKE COUPLER 08/27/2023 5:[address] FREIGHT BRAKE COUPLER Narrative [facility] - 08/27/2023 5:[address] FREIGHT [employer] Therapeutic range determined by protocol established by anticoagulation provider. Filemon Rachel MD LAB_[email or web address] Performing Organization Address [facility] Co de Phone Number [address] * (ABNORMAL) Complete Blood Count-No Diff (08/27/2023 5:[address] [employer]) WBC 6.3 3.5 - 10.5 x10(9)/L 08/27/2023 5:23 AM [facility] RBC 4.43 3.90 - 5.03 x10(12)/L 08/27/2023 5:23 AM [facility] Hemoglobin 11.0(L) 12.0 - 15.5 g/dL 08/27/2023 5:23 AM [facility] HCT 36.6 34.9 - 44.5 % 08/27/2023 5:23 AM [facility] MCV 82.6 80.0 - 100.0 fL 08/27/2023 5:23 AM [facility] MCH 24.8(L) 27.6 - 33.3 pg 08/27/2023 5:23 AM [facility] MCHC 30.1(L) 31.5 - 35.2 g/dL 08/27/2023 5:23 AM [facility] RDW 18.6(H) 11.9 - 15.5 % 08/27/2023 5:23 AM [facility] Platelets 192 150 - 450 x10(9)/L 08/27/2023 5:23 AM [facility] Automated NRBC 0 <=0 /100 WBC 08/27/2023 5:23 AM [facility] Blood Venipuncture / Unknown 08/27/2023 5:[address] [employer] 08/27/2023 5:12 AM [facility] Filemon Rachel MD LAB_1 Performing Organization Address City/State/[facility] Co de Phone Number [address] [address], [facility] * (ABNORMAL) Basic Metabolic Panel (08/27/2023 5:[address] [employer]) Sodium 138 136 - 145 mmol/L 08/27/2023 5:45 AM [facility] Potassium 3.3(L) 3.5 - 5.1 mmol/L 08/27/2023 5:45 AM [facility] Chloride 106 98 - 109 mmol/L 08/27/2023 5:45 AM [facility] CO2 23 20 - 29 mmol/L 08/27/2023 5:45 AM [facility] Anion Gap 9 7 - 16 mmol/L 08/27/2023 5:45 AM [facility] Calcium 8.6 8.4 - 10.4 mg/dL 08/27/2023 5:45 AM [facility] BUN 24 7 - 26 mg/dL 08/27/2023 5:45 AM [facility] Creatinine 1.14(H) 0.55 - 1.02 mg/dL 08/27/2023 5:45 AM [facility] Glucose 144(H) 70 - 100 mg/dL 08/27/2023 5:45 AM [facility] Comment:The given reference range is for the fasting state. Non-fasting reference range for glucose is 70 - 180 mg/dL. GFR, Estimated 49(L) >60 mL/min/1.7 3m2 08/27/2023 5:45 AM [facility] Blood Venipuncture / Unknown 08/27/2023 5:[address] [employer] 08/27/2023 5:[address] [employer] [facility] - 08/27/2023 5:[address] [employer] The National Kidney Disease Education Program suggests measuring Cystatin C in patients with eGFRcrea of 45 to 59 ml/min/1.73^2 who do not have other markers of kidney damage (i.e. elevated urine Albumin/Creatinine Ratio or a prior Cystatin C confirming the presence of chronic kidney disease). Filemon Rachel MD LAB_[id number] [place] [address] * (ABNORMAL) Urine Culture (08/27/2023 12:[address] [employer]) Urine Culture Growth(A) 08/29/2023 8:29 AM [facility] Urine Culture >100,000 CFU/mL Escherichia coli 08/29/2023 8:29 AM [facility] Urine URINE SPECIMEN COLLECTION, CLEAN CATCH / Unknown Non-blood Collection / Unknown 08/27/2023 12:[address] [employer] 08/27/2023 1:[address] [employer] Narrative Organism Antibiotic Method Susceptibility Escherichia coli [...] Escherichia coli Minocycline Iris Ly PA-C LAB_1 [facility] [address] [place] [address], [facility] * (ABNORMAL) UA Conditional UC: Clean Catch (08/27/2023 12:[address] [employer]) Urine Culture Comment Urinalysis results meet criteria for reflex, culture performed. 08/27/2023 1:34 AM [facility] Urine Color Light-Yellow 08/27/2023 1:34 AM [facility] Urine Clarity Clear Clear 08/27/2023 1:34 AM [facility] Specific [place], Urine 1.023 <1.030 08/27/2023 1:34 AM [facility] PH Urine 5.5 5.0 - 8.0 08/27/2023 1:34 AM [facility] Protein, Urine Qual (mg/dL) Negative Negative, 10 , 20 08/27/2023 1:34 AM [facility] Glucose Urine Qual (mg/dL) Normal (Negative) Normal (Negative), 30 , 50 08/27/2023 1:34 AM [facility] Ketones, Urine (mg/dL) Negative Negative, Trace 08/27/2023 1:34 AM [facility] Urobilinogen, Urine (EU/dL) Normal (Negative) Normal (Negative) 08/27/2023 1:34 AM [facility] Bilirubin Urine (mg/dL) Negative Negative 08/27/2023 1:34 AM [facility] Blood, Urine (mg/dL) 1.0 (Large)(A) Negative, 0.03 (Trace) 08/27/2023 1:34 AM [facility] Nitrite Urine 2+ (Positive)(A) Negative 08/27/2023 1:34 AM [facility] Leukocyte Esterase, Urine (Ant/uL) 250 (Moderate)(A) Negative, 25 (Trace) 08/27/2023 1:34 AM [facility] Red Blood Cells 28(H) 0 - 3 /HPF 08/27/2023 1:34 AM [facility] White Blood Cells 23(H) 0 - 5 /HPF 08/27/2023 1:34 AM [facility] Bacteria Few(A) None Seen /HPF 08/27/2023 1:34 AM [facility] Squamous Epithelial Cells Occasional None Seen, Occasional, Few /HPF 08/27/2023 1:34 AM [facility] Mucus Present(A) None Seen /HPF 08/27/2023 1:34 AM [facility] Hyaline Casts 6(H) <=2 /LPF 08/27/2023 1:34 AM [facility] Urine Source Clean Catch 08/27/2023 1:34 AM [facility] Urine URINE SPECIMEN COLLECTION, CLEAN CATCH / Unknown Non-blood Collection / Unknown 08/27/2023 12:[address] [employer] 08/27/2023 12:[address] [employer] Narrative [facility] - 08/27/2023 1:[address] [employer] The qualitative interpretive guidance provided (e.g., small, moderate, large) is intended to aid in quantitative result interpretation. It is not itself an FDA-cleared test result. Iris Ly PA-C LAB_1 Performing Organization Address City/State/[facility] [place] [address], [facility] * CT Angio Chest And CT Abd Pelvis W IV Cont (08/26/2023 11:[address] [employer]) Anatomical Region Laterality Modality Abdomen, Pelvis, Chest, Lung, Vascular Computed Tomography 08/26/2023 11:[address] [employer] Narrative 08/26/2023 11:[address] [employer] EXAM: CT ANGIO CHEST AND CT ABD PELVIS W IV CONT LOCATION: [facility] DATE: 08/26/2023 INDICATION: Left sided chest pain, LUQ pain, positive d-dimer, DISSECTION (AORTA) COMPARISON: None. TECHNIQUE: CT angiogram chest and routine CT abdomen pelvis with IV contrast. Arterial phase through the chest and venous phase through the abdomen and pelvis. 2D and 3D MIP reconstructions were preformed by the nuclear cardiology technologist. Dose reduction techniques were used. CONTRAST: [...] CT ABD PELVIS W IV CONT LOCATION: [facility] DATE: 08/26/2023 INDICATION: Left sided chest [...] (ABNORMAL) D Dimer, Quantitative (08/26/2023 8:[address] [employer]) D Dimer, Quant 0.98(H) <=0.50 ug/mL FEU 08/26/2023 9:[address] [employer] [facility] Blood Venipuncture / Unknown 08/26/2023 8:[address] [employer] 08/26/2023 8:[address] [employer] Narrative [facility] - 08/26/2023 9:[address] [employer] A D-dimer level <=0.50 ug/mL FEU in [...] increasing clot age. Iris Ly PA-C LAB_1 [place] [address], [facility] * ECG 12-Lead STAT (08/26/2023 8:[address] [employer]) Ventricular Rate 64 BPM MUSE [facility] Atrial Rate 64 BPM [facility]USE [facility] P-R Interval 156 ms MUSE [facility] QRS Duration 164 ms MUSE GHP QT 476 ms MUSE GHP QTc 491 ms MUSE [facility] P Morse 11 degrees MUSE GHP R Morse 12 degrees MUSE GHP T Morse 12 degrees MUSE GHP 08/26/2023 8:[address] [employer] Narrative MUSE [facility] - 08/27/2023 8:[address] [employer] Sinus rhythm Right bundle branch block Abnormal ECG No previous ECGs available Confirmed by Barbara Posadas ([id number]) on 08/27/2023 8:49:56 AM Procedure Note Barbara Posadas MD - 08/27/2023 Sinus rhythm Right bundle branch block Abnormal ECG No previous ECGs available Confirmed by Barbara Posadas ([id number]) on 08/27/2023 8:49:56 AM Iris Ly PA-C EKG [facility]USE [facility] [address] [place] [address] * XR Portable Chest 1 View (08/26/2023 7:[address] [employer]) Anatomical Region Laterality Modality Chest, Lung Computed Radiogr aphy 08/26/2023 7:[address] [employer] Narrative 08/26/2023 8:[address] [employer] EXAM: XR PORTABLE CHEST 1 VIEW LOCATION: [facility] DATE: 08/26/2023 INDICATION: Cough. Left flank pain. COMPARISON: 05/30/2014. IMPRESSION: Mild opacity at the left lung base in the retrocardiac region may be related to atelectasis or infection. The lungs are otherwise clear. No pneumothorax. Sternotomy. Pulmonary vascularity is within normal limits. Aortic calcification. Procedure Note Filemon Gibbs MD - 08/26/2023 EXAM: XR PORTABLE CHEST 1 VIEW LOCATION: [facility] DATE: 08/26/2023 INDICATION: Cough. Left flank pain. COMPARISON: 05/30/2014. IMPRESSION: Mild opacity at the left lung base in the retrocardiac regionmay be related to atelectasis or infection. The lungs are otherwise clear.No pneumothorax. Sternotomy. Pulmonary vascularity is within normallimits. Aortic calcification. Iris Ly PA-C RAD PORTABLE * RSV RNA, Molecular Detection (08/26/2023 7:[address] [employer]) RSV by PCR Not Detected Not Detected 08/26/2023 8:[address] [employer] [facility] Swab (Source Required) (Nasopharyngeal swab) Non-blood Collection / Unknown 08/26/2023 7:[address] [employer] 08/26/2023 7:[address] [employer] [facility] 08/26/2023 8:[address] [employer] Method: Qualitative real-time PCR assay to detect RSV Viral RNA. Iris GASTON-C LAB_[address] * Influenza A and B by PCR (08/26/2023 7:[address] [employer]) [facility] INFLUENZA A MOLECULAR Not Detected Not Detected 08/26/2023 8:[address] [employer] [facility] INFLUENZA B MOLECULAR Not Detected Not Detected 08/26/2023 8:[address] [employer] [facility] Swab (Source Required) (Nasopharyngeal swab) Non-blood Collection / Unknown 08/26/2023 7:[address] [employer] 08/26/2023 7:[address] [employer] [facility] 08/26/2023 8:[address] [employer] Methodology: ??Qualitative real-time PCR assay to detect the Influenza type A and type B viral RNA Iris GASTON-C LAB_1 Performing Organization Address [facility] Co de Phone Number [address] * 2019 Novel Coronavirus (COVID-19) (08/26/2023 7:[address] [employer]) [facility] COVID-19 Interpretation Not Detected Not Detected 08/26/2023 8:[address] [employer] [facility] Source Nasopharyngeal swab 08/26/2023 8:[address] [employer] [facility] Swab (Source Required) (Nasopharyngeal swab) Non-blood Collection / Unknown 08/26/2023 7:[address] [employer] 08/26/2023 7:[address] [employer] [facility] 08/26/2023 8:[address] [employer] Test performed by real-time PCR. This test has been authorized by the FDA under an Emergency Use Authorization (EUA) for use by authorized laboratories. Iris GASTON-C LAB_1 Performing Organization Address City/[facility]/[place] [address], [place] * Blood Type second draw (08/26/2023 7:[address] [employer]) ABO O 08/27/2023 6:[address] [employer] [facility] RH Positive 08/27/2023 6:[address] [employer] [facility] Blood Venipuncture / Unknown 08/26/2023 7:[address] [employer] 08/27/2023 5:[address] [employer] Cassie Barton MD LAB_1 [facility] [address] [place] [address] * (ABNORMAL) B-Type Natriuretic Peptide (08/26/2023 7:[address] [employer]) B Type Natr. Peptide 249(H) <=99 pg/mL 08/26/2023 8:[address] [employer] [facility] Blood Venipuncture / Unknown 08/26/2023 7:[address] [employer] 08/26/2023 7:[address] [employer] Iris Ly PA-C LAB_1 Performing Organization Address [facility] Co de Phone Number [address] * Troponin I (08/26/2023 7:[address] [employer]) [facility] Troponin I 0.02 0.00 - 0.03 ng/mL 08/26/2023 8:[address] [employer] [facility] Blood Venipuncture / Unknown 08/26/2023 7:[address] [employer] 08/26/2023 7:[address] [employer] Iris Ly PA-C LAB_1 Performing Organization Address City/[facility]/ZIP Co de Phone Number [address] * (ABNORMAL) Basic Metabolic Panel (08/26/2023 7:[address] [employer]) [facility] Sodium 139 136 - 145 mmol/L 08/26/2023 8:25 PM [facility] Potassium 3.5 3.5 - 5.1 mmol/L 08/26/2023 8:25 PM [facility] Chloride 104 98 - 109 mmol/L 08/26/2023 8:25 PM [facility] CO2 26 20 - 29 mmol/L 08/26/2023 8:25 PM [facility] Anion Gap 9 7 - 16 mmol/L 08/26/2023 8:25 PM [facility] Calcium 9.0 8.4 - 10.4 mg/dL 08/26/2023 8:25 PM [facility] BUN 23 7 - 26 mg/dL 08/26/2023 8:25 PM [facility] Creatinine 0.98 0.55 - 1.02 mg/dL 08/26/2023 8:25 PM [facility] Glucose 148(H) 70 - 100 mg/dL 08/26/2023 8:25 PM [facility] Comment:The given reference range is for the fasting state. Non-fasting reference range for glucose is 70 - 180 mg/dL. GFR, Estimated 59(L) >60 mL/min/1.7 3m2 08/26/2023 8:25 PM [facility] Blood Venipuncture / Unknown 08/26/2023 7:[address] [employer] 08/26/2023 7:54 PM [facility] - 08/26/2023 8:[address] [employer] The National Kidney Disease Education Program suggests measuring Cystatin C in patients with eGFRcrea of 45 to 59 ml/min/1.73^2 who do not have other markers of kidney damage (i.e. elevated urine Albumin/Creatinine Ratio or a prior Cystatin C confirming the presence of chronic kidney disease). Iris Ly PA-C LAB_[address] [address], [facility] * (ABNORMAL) Complete Blood Count -no Diff (08/26/2023 7:[address] [employer]) WBC 7.4 3.5 - 10.5 x10(9)/L 08/26/2023 7:58 PM [facility] RBC 4.69 3.90 - 5.03 x10(12)/L 08/26/2023 7:58 PM [facility] Hemoglobin 11.6(L) 12.0 - 15.5 g/dL 08/26/2023 7:58 PM [facility] HCT 38.2 34.9 - 44.5 % 08/26/2023 7:58 PM [facility] MCV 81.4 80.0 - 100.0 fL 08/26/2023 7:58 PM [facility] MCH 24.7(L) 27.6 - 33.3 pg 08/26/2023 7:58 PM [facility] MCHC 30.4(L) 31.5 - 35.2 g/dL 08/26/2023 7:58 PM [facility] RDW 18.7(H) 11.9 - 15.5 % 08/26/2023 7:58 PM [facility] Platelets 196 150 - 450 x10(9)/L 08/26/2023 7:58 PM [facility] Automated NRBC 0 <=0 /100 WBC 08/26/2023 7:58 PM [facility] Blood Venipuncture / Unknown 08/26/2023 7:[address] [employer] 08/26/2023 7:[address] [employer] Iris Ly PA-C LAB_1 Performing Organization Address City/State/[facility] Co de Phone Number [address] documented in this encounter Visit Diagnoses Diagnosis Left ureteral stone- Primary Nephrolithiasis Calculus of kidney Urinary tract infection with hematuria, site unspecified Flank pain Abdominal pain, unspecified site Complicated UTI (urinary tract infection) Urinary tract infection, site not specified Hydronephrosis, unspecified hydronephrosis type Left ureteral stone Coronary atherosclerosis (HRC) Coronary atherosclerosis of unspecified type of vessel, k[place] or graft Left ureteral stone * Plan of Care - Agustina Parks RN - 08/29/2023 2:00 PM CST [facility] Discharge Note - Nursing Admission Date/Time: 08/26/2023 7:06 PM Attending MD: Patient discharged: to Home. Discharge Date: 08/29/2023 Discharge Time: 2:04 PM Patient accompanied by: relative, son. Transported by: Wheelchair Valuables were taken home by patient: Yes Discharge instructions given and explained to patient: Yes and with son. Tried to call Daughter Vishalbut no answer and cannot leave voicemail. Discharge [...] stored: Yes --- End of Report --- [employer] * Plan of Care - Deion Thurman [...] w/in reach. Bed alarm on for safety. [employer] * Plan of Care - Rasheeda Ovalle RN - 08/28/2023 11:09 PM CST Pt A&Ox3, make needs known. Denies pain, SOB, CP, N/V. Beaver patent draining yellow urine. No bm this shift, offered stool softener but pt decline. Interpretor used as needed. Call light within reach. [employer] * Plan of Care - Evy Guillen [...] home once medically cleared. Please contact the pet care associate or social group worker assigned to the treatment team if care coordination is identified. Alma Guillen manager audio [phone] [employer] * Plan of Care - Deion Thurman [...] within reach. Bed alarm on for safety. [employer] * Plan of Care - Jose Miramontes RN - 08/27/2023 10:04 PM CST Pt alert and oriented X4, Hmong speaking. Denies pain/ discomfort . Tele sinus cecilia. Slept most evening . Ate 50% dinner tolerated well. LR infused per MIRTHA. Penelope in place. Pt hypotensive this evening. Fluid intake encouraged MD aware. Call light within reach. Bed alarm on for safety . BP 122/59 (BP Cuff Size: Regular) Pulse 64 Temp 98 ??F (36.7 ??C) (Oral) Resp 16 Ht 5' 3 (1.6 m) Wt 58.4 kg (128 lb 11.2 oz) SpO2 94% BMI 22.80 kg/m?? [employer] * Plan of Care - Jose Miramontes RN - 08/27/2023 9:[address] [facility]. Practitioner Notified Note Name of Practitioner notified: Giancarlo rose( Veronica Monique MD) Time of Practitioner notification: 20:32 Reason: recheck BP Response: sent [employer] * Plan of Care - Jose Miramontes RN - 08/27/2023 7:[address] [facility]. Practitioner Notified Note Name of Practitioner notified: Giancarlo rose(Veronica Monique MD) Time of Practitioner notification: 7:05 PM Reason: [id number] M Anila, pt BP is low 80/47.Oral fluid encourage and LR infusing. please advise. Thx! Response: Increase current LR infusing rate & recheck BP [employer] * Plan of Care - Agustina Parks [...] Bed alarm on, safety check throughout shift. [employer] documented in this encounter Admitting Diagnoses Diagnosis Left ureteral stone documented in this encounter Administered Medications Inactive Administered Medications - up to 3 most recent administrations Medication Order MAR Action Action Date Dose Rate Site bisacodyl (DULCOLAX) rectal suppository 10 mg 10 [...] due to incompatibility. Started 08/29/2023 1:[address] [employer] 2 g Started 08/28/2023 1:[address] [employer] 2 g clopidogrel (PLAVIX) tablet 75 mg 75 mg, Oral, DAILY, First dose on Wed08/27/23 at 0800, Until Discontinued Given 08/29/2023 7:[address] [employer] 75 mg Given 08/28/2023 8:[address] [employer] 75 mg gabapentin (NEURONTIN) capsule 300 mg 300 mg, Oral, TID, First dose on Wed08/27/23 at 0800, Until Discontinued Given 08/29/2023 7:[address] [employer] 300 mg Given 08/28/2023 8:[address] [employer] 300 mg Given 08/28/2023 1:[address] [employer] 300 mg iohexol (OMNIPAQUE 350) 350 MG/ML injection ONCE PRN, Starting on Wed08/27/23 at 0753, Until Wed08/27/23 at 0843, Intra-op Given 08/27/2023 7:[address] [employer] 50 mL Wound Site lisinopril (ZESTRIL) tablet 2.5 mg 2.5 mg, Oral, DAILY, First dose on Wed08/27/23 at 0800, Until Discontinued, On hold since Wed08/27/2023 at 1143 until manually unheld Given 08/27/2023 9:[address] [employer] 2.5 mg lubricant (SURGILUBE/KY JELLY) gel ONCE PRN, Starting on Wed08/27/23 at 0753, Intra-op Given 08/27/2023 7:[address] [employer]ER 20 [address] Site metoprolol succinate (TOPROL XL) extended release tablet 12.5 mg 12.5 mg, Oral, DAILY, First dose on Wed08/27/23 at 0800, Until Discontinued, Tablet may be split in half, but not crushed., On hold since 08/28/2023 at 0824 until manually unheld Given 08/27/2023 9:[address] [employer] 12.5 mg oxyCODONE (ROXICODONE) immediate release tablet 2.5-5 mg 2.5-5 mg, Oral, Q4H PRN, Pain, Starting on Wed08/27/23 at 1351, Until 08/29/[address] (PROTONIX) tablet 40 mg 40 mg, Oral, DAILY, First dose on Wed08/27/23 at 0800, Until Discontinued, Tablet should be swallowed whole. Best when taken before a meal, but may be taken with food. Given 08/29/2023 7:[address] [employer] 40 mg Given 08/28/2023 8:[address] [employer] 40 mg Given 08/27/2023 9:[address] [employer] 40 mg polyethylene glycol (MIRALAX) oral powder [...] 0800, Until Discontinued Given 08/29/2023 7:[address] [employer] 10 mg Given 08/28/2023 8:[address] [employer] 10 mg Given 08/27/2023 9:[address] [employer] 10 mg senna (SENOKOT) tablet 2 Tablet [...] Recently Administered Medications Times are shown in ROAD [employer] B[employer]KE [employer]PLER. Scheduled Medication Order 08/27/2023 08/28/2023 08/29/2023 acetaminophen [...] each other. 1432 (Given - Provider: Agustina Parks RN)2019 (Given - Provider: Jose Miramontes RN) 0852 (Given - Provider: Maddie Farley RN)1343 (Given - Provider: Maddie Farley RN)203 (Given - Provider: Rasheeda Ovalle, NEGIN) 0742 (Given - Provider: Agustina Parks RN) ceFAZolin (ANCEF) 2 g in sodium chloride 0.9 % 50 mL IVPB ADS (COMPLETED) 2 g, Intravenous, Administer over 30 Minutes, ONCE (NON-SCHEDULED), Starting on Wed08/27/23 at 0553, For 1 dose, For patient weight less than or equal to 119 kg PRE-OP, Pre-op 0750 (Started - Provider: Rob Tabor APRN, [employer] FLEET MANAGER) cefTRIAXone (ROCEPHIN) 2 g in sodium chloride 0.9 % 100 mL IVPB (COMPLETED) 2 g, Intravenous, Administer over 30 Minutes, ONCE, On Wed08/27/23 at 0215, For 1 dose, Do NOT infuse in same line with Lactated Ringers (LR), TPN, or other calcium-containing IV solutions due to incompatibility. 0206 (Started - Provider: Yunior Varghese, NEGIN)0340 (Infused - Provider: Galina Pete RN) cefTRIAXone [...] by provider in Manage Orders - Provider: ALEK Fagan-C - Reason: Other-Give dose at next scheduled time as shown below) 0852 (Given - Provider: Maddie Farley, NEGIN) 0742 (Given - Provider: Agustina Parks, NEGIN) furosemide (LASIX) tablet 20 mg 20 mg, [...] Manage Orders - Provider: Md Higuera Template [facility]) gabapentin (NEURONTIN) capsule 300 mg 300 mg, Oral, TID, First dose on Wed08/27/23 at 0800, Until Discontinued 09 (Given - Provider: Agustina Parks RN)1432 (Given - Provider: Agustina Parks RN)2018 (Given - Provider: Jose Miramontes RN) 0852 (Given - Provider: Maddie Farley RN)1343 (Given - Provider: Maddie Farley RN)203 (Given - Provider: Rasheeda Ovalle, NEGIN) 0742 (Given - Provider: Agustina Parks RN)1400 [...] dose 1546 (Started - Provider: Jose Miramontes RN)2001 (Infused - Provider: Jose Miramontes RN) lactated ringers IV bolus 1,000 mL (COMPLETED) 1,000 mL, Intravenous, Administer over 3 Hours, ONCE, On Wed08/28/23 at 1115, For 1 dose 1227 (Started [...] at 0800, Until Discontinued, On hold since 08/27/2023 at 1143 until manually unheld 0924 (Given - Provider: Agustina Parks RN)1143 (Held by provider in Manage Orders - Provider: Shannan Bender PA-C - Reason: Per Practitioner: Acute Kidney Injury) 0800 (Automatically Held - Provider: Shannan Bender PA-C) 0800 (Automatically Held - Provider: Shannan Bender PA-C)[id number] (Unheld by provider in Manage Orders - Provider: Inpatient Template [facility]) metoprolol succinate (TOPROL XL) extended release tablet 12.5 mg 12.5 mg, Oral, DAILY, First dose on Wed08/27/23 at 0800, Until Discontinued, Tablet may be split in half, but not crushed., On hold since 08/28/2023 at 0824 until manually unheld 0924 (Given [...] in Manage Orders - Provider: Inpatient Template [facility]) pantoprazole DR (PROTONIX) tablet 40 mg 40 [...] dose on Wed08/27/23 at 0800, Until Discontinued 923 (Given - Provider: Agustina Parks RN) 0852 (Given - Provider: Maddie Farley RN) 0742 (Given - Provider: Agustina Parks RN) Continuous Medication Order 08/27/2023 08/28/2023 08/29/2023 lactated ringers infusion (CANCELED) Intravenous, at 100 mL/hr, CONTINUOUS, Starting on Wed08/27/23 at 0330 0441 (Started - Provider: Lisa Moore RN)0733 (Stopped - Provider: Rob Tabor APRN, CRNA - Comment: Switch to gravity)0734 (Restarted - Provider: Rob Tabor APRN, CRNA)0810 (Infused - Provider: Rob Tabor APRN, CRNA) PRN Medication Order 08/27/2023 08/28/2023 08/29/2023 acetaminophen (TYLENOL) tablet 650 mg (CANCELED) 650 [...] Cough, Starting on Wed08/27/23 at 0352, Until 08/29/23 at 1604 bisacodyl (DULCOLAX) rectal suppository 10 [...] Stomach, Starting on Wed08/27/23 at 0352, Until 08/29/23 at 1604, For indigestion/upset stomach iohexol (OMNIPAQUE [...] in the last 3 days, Starting on 08/27/23 at 0352, Until 08/29/23 at 1604, Cumulative [...] R/O COVID19 08/26/2023 08/26/2023 08/26/2023 8:[address] FREIGHT BRAKE COUPLER documented as of this encounter Care Teams Extrusion Press Adjuster Relationship Specialty Start Date End Date No Primary/Referring, Phy PCP - General 08/26/23 documented as of this encounter
--- OUTSIDE RECORDS SUMMARY | 2023-11-04 22:50 | XMS_ITS | Encounter Summary ---
Author Name Unknown Organization [facility] Address [address] [address] Care Team Providers Care Youth Court Judge Name Role Phone No Primary/Referring, Phy Primary Care Provider Unavailable Reason for Visit * Auth/Cert (Routine) Specialty Diagnoses / Procedures Referred By Alfonso killian Referred To Contact Diagnoses Flank pain Nephrolithiasis Urinary tract infection with hematuria, site unspecified Nephrolithiasis Urinary tract infection with hematuria, site unspecified Flank pain Referral ID Status Reason Start Date Expiration Date Visits Re quested Visits Authorized [id number] 1 1 Encounter Details Date Type Department Care Team (Late st Contact Info) Description 08/26/2023 7:40 PM MILK HANDLER Ancillary Procedure [facility] [address] [place] [address] Social History Tobacco Use Types Packs/Day Years Used Date Smoking Tobacco: Never Assessed Sex and Gender Information Value Date Recorded Sex Assigned at Not on file Gender Identity Not on file Sexual Orientation Not on file documented as of this encounter Plan of Treatment Not on file documented as of this encounter Procedures Procedure Name Priority Date/Time Associated Diagnosis Comments XR PORTABLE CHEST 1 VIEW STAT 08/26/2023 7:54 PM MILK HANDLER documented in this encounter Results * XR Portable Chest 1 View (08/26/2023 7:54 PM MILK HANDLER) Anatomical Region Laterality Modality Chest, Lung Computed Radiogr aphy 08/26/2023 7:54 PM MILK HANDLER Narrative 08/26/2023 8:26 PM MILK HANDLER EXAM: XR PORTABLE CHEST 1 VIEW LOCATION: [facility] DATE: 08/26/2023 INDICATION: Cough. Left flank pain. COMPARISON: 05/30/2014. IMPRESSION: Mild opacity at the left lung base in the retrocardiac region may be related to atelectasis or infection. The lungs are otherwise clear. No pneumothorax. Sternotomy. Pulmonary vascularity is within normal limits. Aortic calcification. Procedure Note Filemon Gibbs MD - 08/26/2023 EXAM: XR PORTABLE CHEST 1 VIEW LOCATION: [facility] DATE: 08/26/2023 INDICATION: Cough. Left flank pain. COMPARISON: 05/30/2014. IMPRESSION: Mild opacity at the left lung base in the retrocardiac regionmay be related to atelectasis or infection. The lungs are otherwise clear.No pneumothorax. Sternotomy. Pulmonary vascularity is within normallimits. Aortic calcification. Iris Ly PA-C RAD PORTABLE documented in this encounter Visit Diagnoses Not on filedocumented in this encounter Additional Health Concerns Infection Onset Date Last Indicated Resolved Time R/O COVID19 08/26/2023 08/26/2023 08/26/2023 8:34 PM MILK HANDLER documented as of this encounter Care Teams Youth Court Judge Relationship Specialty Start Date End Date No Primary/Referring, Phy PCP - General 08/26/23 documented as of this encounter
--- OUTSIDE RECORDS SUMMARY | 2023-11-04 22:50 | XMS_ITS | Clinical Summary ---
Author Name Unknown Organization [facility] Address [place], [place] [address] Care Team Providers Care Instructional Support Technician Name Role Phone John San MD Primary Care Provider [phone] Allergies No known active allergies Medications Medication Sig Dispensed Refills Start Date End Date Status nitroglycerin (NITROSTAT) 0.[address] 0.4 mg under the tongue every 5 minutes if needed for Chest Pain. 4 10/20/2016 Active aspirin (ECOTRIN) 81 mg enteric coated tablet 4 10/20/2016 Active furosemide (LASIX) 20 mg tablet Take 1 tablet by mouth every morning. 0 04/18/2020 Active metoprolol succinate (TOPROL XL) 25 mg Sustained-Release tablet Take 12.5 mg by mouth two times daily. Active pantoprazole (PROTONIX) 40 mg delayed-release tablet Take 40 mg by mouth once daily. Active methyl salicylate-menthol (LALITHA MARINO; MENTHOLATUM DEEP HEAT) 15-10 % topical cream Apply topically to affected area(s) 3 times daily if needed (Applies to neck, legs, hands, arms). Active acetaminophen (TYLENOL) 325 mg tablet Take 650 mg by mouth every 4 hours if needed for Pain. Max acetaminophen dose: 4000mg in 24 hrs. Active clopidogreL (PLAVIX) 75 mg tabletIndications:NS SIM (non-ST elevated myocardial infarction) (HC) Take 1 Tablet (75 mg) by mouth once daily. Take for 1 year or otherwise directed by your cuff turner machine operator 30 Tablet 11/13/2022 Active evolocumab (Repatha SureClick) 140 mg/mL subcutaneous pen injectorIndications: Hyperlipidemia, unspecified hyperlipidemia type Inject 1 mL (140 mg) subcutaneous every 2 weeks. Inject into abdomen, thigh, or upper arm; rotate injection sites. 6 mL 11/18/2022 Active Active Problems Problem Noted Date Diagnosed Date Abnormal cardiovascular stress test 05/07/2020 Chronic heart failure with preserved ejection fr action 05/07/2020 SOB (shortness of breath) 05/03/2020 Fatigue 05/03/2020 Moderate-severe tricuspid valve regurgitation Severe mitral regurgitation 04/18/2020 Dermatochalasis of both upper eyelids 11/26/2017 Cataract, nuclear sclerotic senile, bilateral Dermatochalasis of both upper eyelids 07/30/2017 CAD (coronary artery disease) 05/30/2014 Hypotension 05/30/2014 Dyslipidemia 05/30/2014 UTI (lower urinary tract infection) 11/15/2010 Weakness 11/15/2010 Pain in joint, shoulder region 11/15/2010 Chest pain, unspecified 05/29/2010 Vascular disease 03/31/2010 Postmenopausal 02/18/2010 S/P CABG x 3 02/06/2010 Overview: 02/05/10 CAB x 3 (LUNA-LAD, SV-OM, SV-PLB) and endoscopic vein harvest (left leg) per Dr. Zoie Moses post [place] 02/06/2010 CAD sp NSTEMI (non-ST elevated myocardial infarc tion) 02/05/2010 Overview: - 02/05/10 presented to [place] [facility] ED with severe SOTO, developed chest pain, EKG showed anterolateral ST/T changes, and high troponins, transferred to [facility] 02/05/10 for further evaluation - 02/05/10 Angio: severe 3VD, had CABG February 13, 2010. Her postoperative echo demonstrated normal systolic function of 70% without wall motion abnormalities. There was some concern about increased wall thicknesses so she underwent a cardiac MRI that was essentially normal. On ASA metoprolol zocor Cervical spondylosis without myelopathy 10/06/19 08 Age-related hypermature cataract of left eye Resolved Problems Problem Noted Date Diagnosed Date Resolved Date Chest pain, unspecified 05/28/2010 12/06/2009 Postoperative anemia due to acute blood loss 0 03/18/2010 UTI (lower urinary tract infection) 02/06/2010 02/18/2010 Cholecystitis with cholelithiasis 02/05/2010 02/18/2010 Migraine 02/05/2010 02/18/2010 Impacted cerumen 10/06/2007 02/18/2010 Immunizations Name Administration Dates Next Due Influenza, IIV3 (Age >=3 years) 03/18/2010 Pneumococcal Poly,23-Valent (Pneumovax) 02/13/20 10 Family History Medical History Relation Name Comments Heart Disease Brother Good Health Father Good Health Mother Relation Name Status Comments Brother Father Mother Social History Tobacco Use Types Packs/Day Years Used Date Smoking Tobacco: Never Smokeless Tobacco: Never Tobacco Cessation:Counseling Given: Yes Alcohol Use Standard Drinks/Week Comments No 0 (1 standard drink = 0.6 oz pur e alcohol) Social Connections Answer Date Recorded Frequency of Communication with Friends and Fami ly Not on file 06/28/2021 Financial Resource Strain Answer Date R ecorded Difficulty of Paying Living Expenses Not on file 06/28/2021 Difficulty of Paying Living Expenses Not on file 06/28/2021 Sex and Gender Information Value Date Recorded Sex Assigned at Not on file Gender Identity Not on file Sexual Orientation Not on file Obstetrics History Last Filed Vital Signs Vital Sign Reading Time Taken Comments Blood Pressure 109/63 11/13/2022 1:00 PM CDT Pulse 70 11/13/2022 1:00 PM CDT Temperature 36.9 ??C (98.4 ??F) 11/13/2022 1:00 PM CD T Respiratory Rate 18 11/13/2022 1:00 PM CDT Oxygen Saturation 96% 11/13/2022 1:00 PM CDT Inhaled Oxygen Concentration - - Weight 57.5 kg (126 lb 12.2 oz) 11/13/2022 6:00 AM CDT Height 139.7 cm (4' 7) 11/12/2022 10:4 5 AM CDT Body Mass Index 29.46 11/12/2022 10:45 AM CDT Plan of Treatment Health Maintenance Due Date Last Done Comments Tdap 09/16/1956 Depression screening for age 12+ 1956 Hepatitis C screening for age 18-79 1962 Tetanus booster 1964 Zoster (shingles) series for age 50+ (1 of 2) 1994 DEXA/DXA scan for age 65+ 2009 Medicare Wellness for age 65+ 2009 Pneumococcal series for age 65+ (2 of 2 - PCV) 02/12/2011 02/12/2010 BMI (ht and wt on same day) for age 18+ 04/17/2021 1 COVID-19 vaccine series (3 - season) 2023 08/31/2020, 08/10/2020 Influenza for age 65+ 02/27/2024 03/18/2010 Medical Devices Implanted Type Area [employer] Assembler Device Identifier Shelf Expiration Date Model / Serial / Lot Iol Lawrence +24.5 Tecnis [id number] - [id number] Implanted:Qty: 1 on 08/25/2017 by Chidi Hadley MD at [facility] Left: Eye [employer] 06/11/2021 [id number]# / [id number] / Iol Lawrence +24.5 Tecnis [id number] - [id number] Implanted:Qty: 1 on 2017 by Chidi Hadley MD at [facility] Right: Eye [employer] 05/31/2021 [id number]# / [id number] / Advance Directives * Full Code (Latest Code Status on File) Date Activated Date Inactivated Comments 11/12/2022 2:51 PM 11/13/2022 6:40 PM Question Answer Comments Code Status Discussion: Reviewed Preferences * Full Code Date Activated Date Inactivated Comments 05/16/2020 9:27 AM 05/17/2020 2:13 AM Question Answer Comments Code Status Discussion: Discussed * Full Code Date Activated Date Inactivated Comments 05/07/2020 10:50 AM 05/07/2020 4:20 PM Question Answer Comments Code Status Discussion: Not Discussed * Full Code Date Activated Date Inactivated Comments 2017 1:32 PM 2017 6:01 PM * Full Code Date Activated Date Inactivated Comments 08/25/2017 11:17 AM 08/25/2017 3:50 PM Care Teams Instructional Support Technician Relationship Specialty Start Date End Date John San MD [address] [place] [id number] PCP - General Family Practice 11/12/22
[2023-11-04 22:56] LABS: Chloride* 110 mmol/L (96-114); Potassium* 3.3 mmol/L (3.6-5.1); Sodium* 137 mmol/L (135-149)
[2023-11-04 22:58] LABS: Creatinine* 0.8 mg/dL (0.5-1.5); Estimated Glomerular Filt Rate 75 ml/min
[2023-11-04 22:59] LABS: Anion Gap 3 mEq/L (7-15); Blood Urea Nitrogen* 33 mg/dL (7-30); Calcium* 8.9 mg/dL (8.4-10.6); Carbon Dioxide* 24 mmol/L (20-32); Glucose* 145 mg/dL (60-115)
--- NOTE | 2023-11-04 23:03 | ED_ITS ---
HPI - General Adult General Date Seen: 11/04/23 Chief complaint: Extremity Pain/Injury, Lower Stated complaint: Severe pain both legs Time Seen by Provider: 11/04/23 22:16 Source: patient, family, RN notes reviewed and old records reviewed Mode of arrival: ambulatory Limitations: language barrier History of Present Illness HPI narrative: Patient is a 78-year-old woman who has been having problems with bilateral lower extremity pain for about a year, she has been seen through her clinic, had an MRI done in August which showed severe spinal stenosis as well as a disc herniation at L5-S1. She has been referred to the [facility] for possible injection or surgery. Tonight she had 2 episodes of what she described as severe cramping in her legs. She took some Tylenol at home and is feeling better now. Her daughter brought her in however because she was worried that she might have an episode like that again. She is not walking very much over the past year, mostly using wheelchair although it sounds like she is able to walk at home with a walker small distances. No other new symptoms tonight. She was recently treated with Omnicef for a urinary tract infection related to kidne y stone and stent. No reported vomiting or diarrhea, fevers, or other concerns. Related Data Previous Rx's Medication Instructions Recorded clopidogrel 75 mg tablet 75 mg PO DAILY #90 tabs 12/10/22 furosemide 20 mg tablet 20 mg PO DAILY #90 tabs 12/10/22 lisinopril 2.5 mg tablet 2.5 mg PO DAILY #90 tabs 12/10/22 metoprolol succinate 25 mg 12.5 mg (1/2 x 25 mg) PO DAILY #45 12/10/22 tablet,extended release 24 hr tabs rosuvastatin 10 mg tablet 10 mg PO QDAY #90 tabs 12/10/22 nitroglycerin 0.4 mg sublingual 0.4 mg sublingual Q5M #25 tabs 08/04/23 tablet acetaminophen 325 mg tablet 650 mg (2 x 325 mg) PO TID PRN 10/20/23 pain #100 tabs potassium chloride 20 mEq 20 meq PO DAILY #7 tabs 11/04/23 tablet,extended release Allergies Allergy/AdvReac Type Severity Reaction Status Date / Time No Known Allergies Allergy Verified 11/04/23 21:48 Review of Systems Status of ROS: Reports: 6 or more systems reviewed and unremarkable except as noted in History and below [facility] Medical History History of myocardial infarction (02/04/10) ?I25.2 - Old myocardial infarction (ICD-10) Chronic heart failure with preserved ejection fraction ?I50.32 - Chronic diastolic (congestive) heart failure (ICD-10) Hyperlipidemia ?E78.5 - Hyperlipidemia, unspecified (ICD-10) Pulmonary hypertension ?I27.20 - Pulmonary hypertension, unspecified (ICD-10) Coronary artery disease ?I25.10 - Atherosclerotic heart disease of [place] coronary artery without angina pectoris (ICD-10) COVID-19 virus infection ?U07.1 - COVID-19 (ICD-10) 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.1 - Rheumatic tricuspid insufficiency (ICD-10) Mitral valve insufficiency ?I34.0 - Nonrheumatic mitral (valve) insufficiency (ICD-10) Left ventricular hypertrophy ?I51.7 - Cardiomegaly (ICD-10) History of migraine ?Z86.69 - Personal history of other diseases of the nervous system and sense organs (ICD-10) Surgical History History of coronary artery bypass surgery (2009) ?Z95.1 - Presence of aortocoronary bypass graft (ICD-10) History of cataract extraction (07/2017) ?Z98.49 - Cataract extraction status, unspecified eye (ICD-10) Social History Narrative: Grew up in [facility], in the since the 1970[place]. Hmong is primary language. Lives with daughter Vishal and family (near [place], they have a farm near [place]). Had 10 children, 4 living children now. Homemaker. Nonsmoker, no ETOH. Vishal would be medical decision maker if needed; requests Full Code status. What is your current living situation?: I presently have a place to live Problems where you live: no known problems In the past 12 months, utilities in danger of being shut off: no In the past 12 mos, have been you worried that your food would run out before you had money to buy more?: never true In the past 12 mos, the food you bought just didn't last and you didn't have money to buy more?: never true Highest level of school completed/degree received: never attended/kindergarten only Smoking Status: Never smoker Do you use any of these nicotine containing products: None Second hand tobacco smoke exposure: No How often do you have a drink containing alcohol: never How often do you have six or more drinks on one occasion: Never AUDIT-C Alcohol total score: 0 Non-prescribed substance use: denies use Caffeine: No How often does anyone, including family, friends and others, physically hurt you : How often does anyone, including family, friends and others, insult or talk down to you: How often does anyone, including family, friends and others, threaten you with harm: How often does anyone, including family, friends and others, scream or curse at you: Little interest or pleasure in doing things: not at all Feeling down, depressed, or hopeless: not at all service: No Exam Narrative: Exam Narrative: Vital signs as noted above. In general, an alert, nontoxic elderly woman. She looks comfortable. Head: Normocephalic, atraumatic. Eyes: Pupils are equal reactive. Extraocular movements are full. Conjunctivae are normal. ENT: Mucous membranes are moist. Neck: Supple without lymphadenopathy. Heart: Regular rate and rhythm. Lungs: Clear bilaterally. No increased work of breathing, crackles or wheezes. Abdomen: Soft and nontender. No organomegaly. Extremities: Well perfused. No edema. No calf tenderness. Pulses intact. Both legs are thin, minimal muscle bulk. Neurologic: Patient is alert and oriented to person and place. Speech is fluent. Face is symmetric. Moves all extremities equally. Affect: Normal. Skin: Warm and dry. Well perfused. Const: Vital Signs, click to edit/add: Vital Signs - 24 hr 11/04/23 21:48 Temperature 97.8 F Pulse Rate [Pulse Oximeter] 89 Respiratory Rate 20 Blood Pressure [Ri ght Upper Arm] 120/65 Pulse Oximetry 96 Oxygen Delivery Me thod Room Air Documenting provider has reviewed patient's vital signs: yes Course Course ED Course: I elected just to check electrolytes since they described this muscle cramping type pain. Otherwise, if that is normal I think she can be managed simply with pain control. She does have Tylenol prescribed as well as gabapentin. I will give her daughter a prescription as well for Flexeril if needed for muscle cramping. Encouraged follow-up in back clinic as planned. Basic metabolic panel notable for a mildly low potassium of 3.3. She is on Lasix, looking back it seems as if her potassium is typically in the 4s. I did give her some potassium here, send her home on replacement for the next week or so. Discussed with her daughter that can be followed up in clinic just to make sure that it stabilizes. Otherwise, recommendations as above, they have not yet made an appointment at [facility] but I have encouraged her daughter to go ahead and make that appointment as it seems as if some of this may benefit from an injection. For severe uncontrolled pain, fever, bowel or bladder changes or other worsening, return to the emergency department. Vital Signs Vital signs: Initial Vital Signs Temperature 97.8 F 11/04/23 21:48 Temperature Source Temporal Artery Scan 11/04/23 21:48 Pulse Rate 89 11/04/23 21:48 Respiratory Rate 20 11/04/23 21:48 Blood Pressure 120/65 11/04/23 21:48 Blood Pressure Mean 83 11/04/23 21:48 Pulse Oximetry 96 11/04/23 21:48 Oxygen Delivery Method Room Air 11/04/23 21:48 Vital Signs Temperature 97.8 F 11/04/23 21:48 Pulse Rate 89 11/04/23 21:48 Respiratory Rate 20 11/04/23 21:48 Blood Pressure 120/65 11/04/23 21:48 Pulse Oximetry 96 11/04/23 21:48 Oxygen Delivery Method Room Air 11/04/23 21:48 Temperature 97.8 F 11/04/23 21:48 Pulse Rate 89 11/04/23 21:48 Respiratory Rate 20 11/04/23 21:48 Blood Pressure 120/65 11/04/23 21:48 Pulse Oximetry 96 11/04/23 21:48 Oxygen Delivery Method Room Air 11/04/23 21:48 Medications Administered Medications: Generic Name Dose Route Start Last Admin Trade Name Freq PRN Reason Stop Dose Admin Potassium Bicarbonate 50 meq 11/04/23 23:11 11/04/23 23:27 Potassium Bicarb 25 Meq Effervescent Tab PO 11/04/23 23:12 50 meq ONCE ONE Administration Medical Decision Making Lab Data Labs: Lab Results 11/04/23 Range/Units 22:35 Sodium 137 (135-149) mmol/L Potassium 3.3 L (3.6-5.1) mmol/L Chloride 110 (96-114) mmol/L Carbon Dioxide 24 (20-32) mmol/L Anion Gap 3 L (7-15) mEq/L BUN 33 H (7-30) mg/dL Creatinine 0.8 (0.5-1.5) mg/dL Estimated GFR 75 ml/min Glucose 145 H (60-115) mg/dL Calcium 8.9 (8.4-10.6) mg/dL Discharge Plan Discharge Clinical Impression: Lumbar radiculopathy Patient Disposition: Home w/ Parent or Adult Condition: Stable Instructions: Lumbar Radiculopathy (ED) Additional Instructions: Follow-up in back clinic as planned. Potassium is slightly low today, would recommend supplementing this for the next week or so. Used Tylenol and gabapentin as prescribed. Flexeril if needed for muscle camping. Prescriptions: New potassium chloride 20 mEq tablet extended release 20 meq PO DAILY Qty: 7 2RF No Action acetaminophen 325 mg tablet 650 mg PO TID PRN (Reason: pain) Qty: 100 3RF rosuvastatin 10 mg tablet 10 mg PO QDAY Qty: 90 3RF metoprolol succinate 25 mg tablet extended release 24 hr 12.5 mg PO DAILY Qty: 45 3RF furosemide 20 mg tablet 20 mg PO DAILY Qty: 90 3RF clopidogrel 75 mg tablet 75 mg PO DAILY Qty: 90 3RF lisinopril 2.5 mg tablet 2.5 mg PO DAILY Qty: 90 3RF nitroglycerin 0.4 mg tablet, sublingual 0.4 mg sublingual Q5M Qty: 25 0RF Follow Up/Referrals: John San MD [Primary Care Provider] - Stand Alone Forms: MyHealth Info Instructions
[2023-11-04] MEDS: POTASSIUM BICARB 25 MEQ EFFERVESCENT TAB 50 MEQ PO (23:27)
== END 2023-11-05 00:08 | disposition home or self-care (01) ==
PROVIDERS: Emergency Provider Emergency Medicine; PCP Family Medicine
DX: M54.16 Radiculopathy, lumbar region (principal)
CPT/HCPCS: 36415; 80048; 99283; 99284; A9270

== ENCOUNTER 2023-12-23 15:22 | Emergency (ER) | payer MEDICARE, MEDICAID, SELFPAY ==
[2023-12-23 15:31] VITALS: BP 138/100; PULSE 83; RESP 24; TEMP 36.8; O2SAT 98
--- NOTE | 2023-12-23 16:09 | CRLHL7_ITS ---
For Patients: As a result of the Century Cures Act, medical imaging exams and procedure reports are released immediately into your electronic medical record. You may view this report before your referring provider. If you have questions, please contact your health care provider. Indication: Acute comminuted type 3 displaced dens fracture Technique: CT of the head without contrast. Coronal and sagittal reformats. Bone and soft tissue windows. Comparison: No prior studies available for comparison at this institution. Findings: No acute intracranial hemorrhage or extra-axial collection. No evidence of acute cortical infarction. No mass effect or midline shift. Normal cerebral volume. The ventricles are normal in size, shape and contour. There is normal vieira and white matter differentiation. The orbital contents are normal. No calvarial fractures. No lytic or sclerotic osseous lesions within the calvarium or skull base. Scalp and other imaged soft tissue structures are normal. Mastoid air cells are clear. Paranasal sinuses are well aerated. Impression: No acute intracranial abnormality. Please note that all CT scans at this facility use dose modulation, iterative reconstruction, and/or weight-based dosing when appropriate to reduce radiation dose to as low as reasonably achievable. Dictated by Last Delacruz MD @ 12/23/2023 5:19:39 PM (Electronically Signed)
--- NOTE | 2023-12-23 16:10 | CRLHL7_ITS ---
For Patients: As a result of the Century Cures Act, medical imaging exams and procedure reports are released immediately into your electronic medical record. You may view this report before your referring provider. If you have questions, please contact your health care provider. INDICATION: Abdominal pain. TECHNIQUE: CT abdomen and pelvis acquired with 64 mL Isovue 370 contrast. COMPARISON: CT abdomen/pelvis dated 09/24/2023. FINDINGS: Lower chest: Significant respiratory motion artifact. No large focal consolidation. Extensive atherosclerotic coronary artery calcifications. Liver: No suspicious focal hepatic lesion. Gallbladder and bile ducts: Extensive cholelithiasis. No secondary signs of acute cholecystitis. Pancreas: Unremarkable. Spleen: Unremarkable. Adrenal glands: Unremarkable. Kidneys: 0.7 cm calculus in the left proximal ureter, results in mild left hydronephrosis, as well as mild periureteral and perinephric inflammatory changes. Additional nonobstructing calculi in the right kidney measuring up to 0.5 cm in the interpolar region. Too small to characterize hypodense bilateral renal lesions. Retroperitoneum: No lymphadenopathy. Bowel and mesentery: Bowel is not obstructed. No significant ascites, no pneumoperitoneum. Normal appendix. Bladder: Unremarkable for degree of distention. Reproductive organs: Unremarkable. Pelvic lymph nodes: No lymphadenopathy. Vessels: Extensive atherosclerotic calcifications. Abdominal wall: No acute abdominal wall abnormality. Bones: Multilevel degenerative changes of the spine. Bones are osteopenic. IMPRESSION: 1. Obstructing 0.7 cm calculus in the left proximal ureter, results in mild left hydronephrosis. 2. Additional nonobstructing calculi in the right kidney measuring up to 0.5 cm. Please note that all CT scans at this facility use dose modulation, iterative reconstruction, and/or weight-based dosing when appropriate to reduce radiation dose to as low as reasonably achievable. Dictated by Matilda Finn MD @ 12/23/2023 5:51:23 PM (Electronically Signed)
[2023-12-23 16:12] LABS: Lactate* 3.1 mmol/L (0.5-1.9)
[2023-12-23 16:17] LABS: Basophils Absolute Auto 0.03 K/uL (0.00-0.30); Basophils Percent Auto 0.4 % (0.0-3.0); Eosinophils Absolute Auto 0.05 K/uL (0.00-0.50); Eosinophils Percent Auto 0.6 % (0.0-7.0); Hematocrit 41.4 % (33.0-51.0); Hemoglobin* 12.5 gm/dL (12.0-16.0); Immature Granulocytes Abs Auto 0.18 K/uL (0.00-0.30); Immature Granulocytes Pct Auto 2.3 %; Lymphocytes Percent Auto 9.6 % (20-44); Mean Corpuscular HGB Conc 30 gm/dL (32-36); Mean Corpuscular Hemoglobin 26 pg (26-34); Mean Corpuscular Volume 87 fL (80-100); Monocytes Percent Auto 1.6 % (0.0-11.0); Neutrophils Percent Auto 85.5 % (42.0-72.0); Platelet Count* 161 K/uL (140-440); RDW Coefficient of Variation % 16.2 % (11.5-15.5); Red Blood Count 4.78 m/uL (4.00-5.20); White Blood Count* 7.99 K/uL (4.50-11.00)
[2023-12-23 16:22] LABS: Slide Review Reflex No
--- OUTSIDE RECORDS SUMMARY | 2023-12-23 16:23 | XMS_ITS | Clinical Summary ---
Author Organization [facility] Address [address], [place] [address] Care Team Providers Care Managed Care Nurse Name Role Phone No Primary/Referring, Felipe Primary Care Provider Unavailable Source Comments You are receiving this document as you are listed as the primary care provider,follow-up provider, or the patient has been referred to you for consultation.This is in compliance with the Medicare and[facility] EHR Incentive Program,which states Providers who transition their patient to another setting of careor provider of care or refers their patient to another provider of care shouldprovide summary care record for each transition of care or referral. [facility] Allergies No known active allergies Medications Medication [...] Visit Specialty [facility] [address] [facility] [place] [address] Masha Sheppard PA-C Nephrolithiasis (Primary Dx) 09/29/2023 6:32 PM CDT Anesthesia Event Operating Room [address] [place] [id number] Jr Zheng MD 09/29/2023 5:45 PM CDT - 09/29/2023 7:15 PM CDT Surgery Operating Room [address] [place] [address] Jose Gee MD Thulium LASER CYSTOSCOPIC REMOVAL URETERAL STONE WITH LEFT URETERAL STENT EXCHANGE, LEFT RETROGRADE PYELOGRAM, STONE BASKET EXTRACTION 09/29/2023 5:30 PM CDT Ancillary Procedure [facility] [address] [place] [address] 09/27/2023 Telephone Specialty Center [address] [place] [address] Jenna Fermin PA-C 09/26/2023 8:00 PM CDT Ancillary Procedure [facility] [address] [place] [address] 09/26/2023 7:33 PM CDT - 09/30/2023 2:15 PM CDT Hospital Encounter RH C[address] [place] [address] Edilma Sandy MD Aberra, Michael E, MD Heller, Jeffrey A, MD Muigai, MILLY Bradshaw Gabriel J, PRODUCTION REPRODUCTION MANAGER, TIRE CENTER MANAGER Simran Kunz APRN, TIRE CENTER MANAGER Left ureteral stone (Primary Dx); Left flank [...] Tobacco: Never Tobacco Cessation:Counseling Given: Not Answered [facility] Utilities Answer Date Recorded In the past 12 months has Giving Assistant, gas, oil, or water [employer] threatened to shut off services in your home? No 09/27/2023 Humiliation, Afraid, Rape, and Kick questionnair e [...] by your partner or ex-partner? No 09/27/2023 Hunger Vital Sign Answer Date Recorded Within the past 12 months, y ou worried that your food would run out before you got the money to buy more. Never true 09/27/19 24 Within the past 12 months, t he food you bought just didn't last and you didn't have money to get more. Never true 09/27/2023 PRAPARE - Transportation Answer Date Re corded In the past 12 months, has l ack of transportation kept you from medical appointments or from getting medications? No 06/2023 In the past 12 months, has l ack of transportation kept you from meetings, work, or from getting things needed for daily living? No 09/27/2023 Housing Stability Vital Sign Answer [...] place to sleep or slept in a fpc (including now)? No 09/27/2023 Sex and Gender [...] this topic Medical Devices Implanted Type Area Financial Aid Manager Device Identifier Shelf Expiration Date Model / Serial / Lot Stent Ureteral Ultra 6x22 - [employer]aris - [id number] Implanted:Qty: 1 on 09/29/2023 by Jose Gee MD at [facility] DEVICE Left: [employer] 05/14/2026 [id number] / / [id number] Explanted Type Area Financial Aid Manager Device Identifier Shelf Expiration Date Model / Serial / Lot Stent Ureteral Ultra 6x22 - [employer]aris - [id number] Implanted:Qty: 1 on 08/27/2023 by Mira Price MD at [facility] Explanted:Qty: 1 on 09/29/2023 by Jose Gee MD at [facility] DEVICE Left: [employer] 04/01/2026 [id number] / / [id number] Procedures Procedure Name Priority Date/Time Associated Diagnosis [...] (IRON,TIBC,%SAT.(CALC )) Add-On 09/27/2023 7:17 AM CDT COMPLETE BLOOD COUNT-W/DIFF Routine 09/27/2023 7:17 AM CDT BASIC METABOLIC PANEL Routine 09/27/2023 7:17 AM CDT CBC AND DIFFERENTIAL PANEL Routine 09/27/2023 7:17 AM CDT GLUCOSE, WHOLE BLOOD POCT Routine 09/27/2023 4:[address] ABD PELVIS W IV CONT STAT 09/26/2023 10:40 PM CDT LIPASE STAT 09/26/2023 9:48 PM CDT LIVER PANEL(HEPATIC FUNCTION PANEL) STAT 09/26/2023 9:48 PM CDT BASIC METABOLIC PANEL STAT 09/26/2023 9:48 PM CDT COMPLETE BLOOD COUNT-NO DIFF STAT 09/26/2023 9:48 PM CDT URINE CULTURE STAT 09/26/2023 9:02 PM CDT UA CONDITIONAL UC STAT 09/26/2023 9:0 2 PM CDT EKG 09/26/2023 from Last 3 Months Results * (ABNORMAL) Basic Metabolic Panel (09/30/2023 7:24 AM CDT) Only the most recent of4 resultswithin the time period is included. Sodium 140 136 - 145 mmol/L 09/30/2023 8:01 AM [facility] Potassium 4.1 3.5 - 5.1 mmol/L 09/30/2023 8:01 AM [facility] Chloride 106 98 - 109 mmol/L 09/30/2023 8:01 AM [facility] CO2 22 20 - 29 mmol/L 09/30/2023 8:01 AM [facility] Anion Gap 12 7 - 16 mmol/L 09/30/2023 8:01 AM [facility] Calcium 9.2 8.4 - 10.4 mg/dL 09/30/2023 8:01 AM [facility] BUN 11 7 - 26 mg/dL 09/30/2023 8:01 AM [facility] Creatinine 0.71 0.55 - 1.02 mg/dL 09/30/2023 8:01 AM [facility] Glucose 119(H) 70 - 100 mg/dL 09/30/2023 8:01 AM [facility] Comment:The given reference range is for the fasting state. Non-fasting reference range for glucose is 70 - 180 mg/dL. GFR, Estimated >60 >60 mL/min/1.7 3m2 09/30/2023 8:01 AM [facility] Blood Venipuncture / Unknown 09/30/2023 7:24 AM CDT 09/30/2023 7:33 AM CDT Simran Jeanne Kunz APRN, TIRE CENTER MANAGER LAB_1 Performing Organization Address City/State/[facility] Co de Phone Number [id number] [place] [address] * (ABNORMAL) Complete Blood Count-No Diff (09/30/2023 7:24 AM CDT) Only the most recent of2 resultswithin the time period is included. WBC 6.5 3.5 - 10.5 x10(9)/L 09/30/2023 7:40 AM [facility] RBC 4.33 3.90 - 5.03 x10(12)/L 09/30/2023 7:40 AM [facility] Hemoglobin 11.1(L) 12.0 - 15.5 g/dL 09/30/2023 7:40 AM [facility] HCT 36.2 34.9 - 44.5 % 09/30/2023 7:40 AM [facility] MCV 83.6 80.0 - 100.0 fL 09/30/2023 7:40 AM [facility] MCH 25.6(L) 27.6 - 33.3 pg 09/30/2023 7:40 AM [facility] MCHC 30.7(L) 31.5 - 35.2 g/dL 09/30/2023 7:40 AM [facility] RDW 14.9 11.9 - 15.5 % 09/30/2023 7:40 AM [facility] Platelets 200 150 - 450 x10(9)/L 09/30/2023 7:40 AM [facility] Automated NRBC 0 <=0 /100 WBC 09/30/2023 7:40 AM [facility] Blood Venipuncture / Unknown 09/30/2023 7:24 AM CDT 09/30/2023 7:33 AM CDT Simran Kunz APRN, CNP LAB_1 Performing Organization Address [facility] Co de Phone Number [address] * Glucose, Whole Blood POCT (09/29/2023 7:39 PM CDT) Only the most recent of3 resultswithin the time period is included. Glucose, Whole Blood 109 70 - 180 mg/dL 09/29/2023 7:41 PM CDT [facility] Performing Location [facility]CLAB PACU 09/29/2023 7:41 PM CDT [facility] Blood 09/29/2023 7:39 PM CDT 09/29/2023 7:41 PM CDT Simran Kunz APRN, CNP LAB_1 Performing Organization Address [facility] Phone [address] * XR C-Arm 1-1.5 Hours (09/29/2023 7:28 PM CDT) Anatomical Region Laterality Modality X-Ray Angiograph y Narrative 09/29/2023 7:29 PM CDT Fluoroscopy provided by a vascular technologist sonographer. Exact fluoroscopy time is documented in end of exam information in EPIC Simran Kunz APRN, CNP RAD GD * IV Insertion, LST Perform (09/28/2023 9:41 AM CDT) IV INSERTION, LST PERFORM (LAB) Done 09/28/2023 12:00 PM CDT [facility] Other Specimen Type IV Start / Unknown 09/28/2023 9:41 AM CDT 09/28/2023 10:02 AM CDT Simran Kunz APRN, CNP LAB_1 Performing Organization Address [facility] Co de Phone Number [address] * Folate Only (4Hr Fast Recommended) (09/27/2023 2:03 PM CDT) Pathologist [facility] Folate 11.7 >=7.0 ng/mL 09/29/2023 11:57 AM CDT [facility] Blood Venipuncture / Unknown 09/27/2023 2:03 PM CDT 09/27/2023 2:22 PM CDT Gordon Lama APRN, RICARDO LAB_1 [facility] [address] * (ABNORMAL) Complete Blood Count-W/Diff (09/27/2023 7:17 AM CDT) [facility] WBC 4.2 3.5 - 10.5 x10(9)/L 09/27/2023 7:34 AM [facility] RBC 3.89(L) 3.90 - 5.03 x10(12)/L 09/27/2023 7:34 AM [facility] Hemoglobin 9.9(L) 12.0 - 15.5 g/dL 09/27/2023 7:34 AM [facility] HCT 33.4(L) 34.9 - 44.5 % 09/27/2023 7:34 AM [facility] MCV 85.9 80.0 - 100.0 fL 09/27/2023 7:34 AM [facility] MCH 25.4(L) 27.6 - 33.3 pg 09/27/2023 7:34 AM [facility] MCHC 29.6(L) 31.5 - 35.2 g/dL 09/27/2023 7:34 AM [facility] RDW 15.6(H) 11.9 - 15.5 % 09/27/2023 7:34 AM [facility] Platelets 167 150 - 450 x10(9)/L 09/27/2023 7:34 AM [facility] Automated NRBC 0 <=0 /100 WBC 09/27/2023 7:34 AM [facility] Neutrophil Absolute 2.4 1.7 - 7.0 10(9)/L 09/27/2023 7:34 AM CDT [facility] Lymphocyte Absolute 1.1 1.0 - 4.8 10(9)/L 09/27/2023 7:34 AM [facility] Monocyte Absolute 0.4 0.2 - 0.9 10(9)/L 09/27/2023 7:34 AM CDT [facility] Eosinophil Absolute 0.2 0.0 - 0.5 10(9)/L 09/27/2023 7:34 AM CDT [facility] Basophil Absolute 0.0 0.0 - 0.3 10(9)/L 09/27/2023 7:34 AM CDT [facility] Immature Granulocyte % 0.2 0.0 - 0.5 % 09/27/2023 7:34 AM [facility] Blood Venipuncture / Unknown 09/27/2023 7:17 AM CDT 09/27/2023 7:24 AM CDT Filemon Rachel MD LAB_1 Performing Organization Address City/State/[facility] Co de Phone Number [address] * (ABNORMAL) Hgb A1C (09/27/2023 7:17 AM CDT) Hemoglobin A1C 6.6(H) <=5.6 % 09/28/2023 10:[address] [facility] Estimated Average Glucose (Calc) 143 < 117 mg/dL 09/28/2023 10:[address] [facility] Comment:Estimated average gl ucose (eAG) converts A1c into glucose units (mg/dL) and estimates average glucose over the past approximately 3 months. The eAG reference interval (<117 mg/dL) corresponds to an A1c of <5.7%. Blood Venipuncture / Unknown 09/27/2023 7:17 AM CDT 09/27/2023 7:[address] [facility] - 09/28/2023 10:59 AM CDT For patients not previously diagnosed with diabetes: 5.7-6.4%: Increased risk for diabetes 6.5% and greater: Diagnostic for diabetes For patients diagnosed with diabetes: <8.0%: Goal of therapy for ages 18-75 Clinicians may recommend a higher or lower goal for specific individuals. Gordon Lama APRN, CNP LAB_1 Performing Organization Address [facility] de Phone Number [facility] [address] [place] [address] * (ABNORMAL) Vitamin B12 Only (09/27/2023 7:17 AM CDT) Vitamin B12 189(L) 213 - 816 pg/mL 09/28/2023 12:02 PM CDT [facility] Blood Venipuncture / Unknown 09/27/2023 7:17 AM CDT 09/27/2023 7:24 AM CDT Narrative [facility] - 09/28/2023 12:02 PM CDT Borderline low serum Vitamin B12 values may not be diagnositic of B12 deficiency (140 to 209 pg/mL). Consider serum methylmalonic acid and homocysteine levels for confirmation. Serum B12 far below normal indicates deficency (<140 pg/mL). Gordon Lama APRN, CNP LAB_1 Performing Organization Address [facility] de Phone Number [facility] [address] * (ABNORMAL) Iron Profile (Iron,TIBC,%Sat.(Calc)) (09/27/2023 7:17 AM CDT) Iron 29(L) 50 - 170 mcg/dL 09/27/2023 1:52 PM CDT [facility] Transferrin 247 180 - 382 mg/dL 09/27/2023 1:52 PM CDT [facility] TIBC, Calculated 309 240 - 450 mcg/dL 09/27/2023 1:52 PM CDT [facility] % Saturation, Calculated 9(L) 10 - 50 % 09/27/2023 1:52 PM CDT [facility] TIBC Interpretation Low iron, normal TIBC, possible iron deficiency. 09/27/2023 1:52 PM CDT [facility] Blood Venipuncture / Unknown 09/27/2023 7:17 AM CDT 09/27/2023 7:24 AM CDT Gordon J Kelby BELLA CNP LAB_[address] [address], [facility] * CT Abd Pelvis W IV Cont (09/26/2023 10:40 PM CDT) Anatomical Region Laterality Modality Abdomen, Pelvis Computed Tomogra phy 09/26/2023 10:4 0 PM CDT Narrative 09/26/2023 10:55 PM CDT EXAM: CT ABD PELVIS W IV CONT LOCATION: [facility] DATE: 09/26/2023 INDICATION: Left-sided abdominal pain, [...] CT ABD PELVIS W IV CONT LOCATION: [facility] DATE: 09/26/2023 INDICATION: Left-sided abdominal pain, [...] - 150 U/L 09/26/2023 10:23 PM CDT [facility] Bilirubin, Total 0.6 0.2 - 1.2 mg/dL 09/26/2023 10:23 PM CDT [facility] Bilirubin, Direct 0.2 0.0 - 0.5 mg/dL 09/26/2023 10:23 PM CDT [facility] AST (SGOT) 14 10 - 40 U/L 09/26/2023 10:23 PM CDT [facility] ALT (SGPT) 11 <=55 U/L 09/26/2023 10:23 PM CDT [facility] Protein, Total 6.5 6.4 - 8.3 g/dL 09/26/2023 10:23 PM CDT [facility] Albumin 2.8(L) 3.5 - 5.0 g/dL 09/26/2023 10:23 PM CDT [facility] Blood Venipuncture / Unknown 09/26/2023 9:48 PM CDT 09/26/2023 9:53 PM CDT Grey Espinosa PA-C LAB_[address] [address], [facility] * Lipase (09/26/2023 9:48 PM CDT) Lipase 11 8 - 78 U/L 09/26/2023 10:23 PM CDT [facility] Blood Venipuncture / Unknown 09/26/2023 9:48 PM CDT 09/26/2023 9:53 PM CDT Grey Espinosa ALEK-William LAB_1 Performing Organization Address [facility] Co de Phone Number [address] * (ABNORMAL) Urine Culture (09/26/2023 9:02 PM CDT) Urine Culture Growth(A) 09/27/2023 5:20 PM CDT [facility] Urine Culture <10,000 CFU/mL Mixed Bacterial Growth 09/27/2023 5:20 PM CDT [facility] Comment: Mixed Bacterial Growth indicates the specimen is likely contaminated at collection with urogenital and/or fecal lou. The presence of organisms at <10,000 cfu/ml in culture, UTI unlikely. Urine URINE SPECIMEN COLLECTION, CLEAN CATCH / Unknown Non-blood Collection / Unknown 09/26/2023 9:02 PM CDT 09/26/2023 9:31 PM CDT Grey Espinosa ALEK-C LAB_1 Performing Organization Address [facility] Phone Number [address] * (ABNORMAL) UA Conditional UC: Clean Catch (09/26/2023 9:02 PM CDT) Urine Culture Comment Urinalysis results meet criteria for reflex, culture performed. 09/26/2023 9:39 PM CDT [facility] Urine Color Light-Hayes 09/26/2023 9:39 PM T [facility] Urine Clarity Turbid(A) Clear 09/26/2023 9:39 PM T [facility] Specific [place], Urine 1.020 <1.030 09/26/2023 9:39 PM T [facility] PH Urine 6.0 5.0 - 8.0 09/26/2023 9:39 PM T [facility] Protein, Urine Qual (mg/dL) 100(A) Negative, 10 , 20 09/26/2023 9:39 PM [facility] Glucose Urine Qual (mg/dL) Normal (Negative) Normal (Negative), 30 , 50 09/26/2023 9:39 PM [facility] Ketones, Urine (mg/dL) Negative Negative, Trace 09/26/2023 9:39 PM [facility] Urobilinogen, Urine (EU/dL) Normal (Negative) Normal (Negative) 09/26/2023 9:39 PM [facility] Bilirubin Urine (mg/dL) Negative Negative 09/26/2023 9:39 PM [facility] Blood, Urine (mg/dL) OVER (>1.0, Large)(A) Negative, 0.03 (Trace) 09/26/2023 9:39 PM [facility] Nitrite Urine Negative Negative 09/26/2023 9:39 PM [facility] Leukocyte Esterase, Urine (Ant/uL) 500 (Large)(A) Negative, 25 (Trace) 09/26/2023 9:39 PM [facility] Red Blood Cells >180(H) 0 - 3 /HPF 09/26/2023 9:39 PM [facility] White Blood Cells 116(H) 0 - 5 /HPF 09/26/2023 9:39 PM [facility] Squamous Epithelial Cells Occasional None Seen, Occasional, Few /HPF 09/26/2023 9:39 PM [facility] Mucus Present(A) None Seen /HPF 09/26/2023 9:39 PM [facility] Urine Source Clean Catch 09/26/2023 9:39 PM [facility] Urine URINE SPECIMEN COLLECTION, CLEAN CATCH / Unknown Non-blood Collection / Unknown 09/26/2023 9:02 PM CDT 09/26/2023 9:07 PM CDT Narrative [facility] - 09/26/2023 9:39 PM CD The qualitative interpretive guidance provided (e.g., small, moderate, large) is intended to aid in quantitative result interpretation. It is not itself an FDA-cleared test result. Grey Espinosa PA-C LAB_[address] [address], [facility] * EKG (09/26/2023) Interface Provider EKG from Last 3 Months Advance Directives * [...] 3:52 AM 08/27/2023 5:53 AM Care Teams Managed Care Nurse Relationship Specialty Start Date End Date No Primary/Referring, Phy PCP - General 08/26/23
--- OUTSIDE RECORDS SUMMARY | 2023-12-23 16:23 | XMS_ITS | Encounter Summary ---
Author Organization [facility] Address [address], [place] [address] Care Team Providers Care Strategic Communications Specialist Name Role Phone No Primary/Referring, Phy Primary Care Provider Unavailable Reason for Referral * Procedure/Equipment (Routine) - Incomplete Specialty Diagnoses / Procedures Referred By Alfonso killian Referred To Contact Diagnoses Nephrolithiasis Procedures US Renal W Bladder Masha Sheppard PA-C [address] [place] [address] Referral ID Status Reason Start Date Expiration Date V isits Requested Visits Authorized [id number] Incomplete 11/04/2023 02/02/2025 1 1 Reason for Visit * Reason Comments POST-OP,EXAM Encounter Details Date Type Department Care Team (Latest Contact Info) Description 10/05/2023 10:00 AM CDT Office Visit Specialty Center [address] [place] [address]. [place] [address] Masha Sheppard PA-C [address] [place] [address] Nephrolithiasis (Primary Dx) Social History Tobacco Use Types Packs/Day Years Used Date Smoking Tobacco: Never Smokeless Tobacco: Never Tobacco Cessation:Counseling Given: Not Answered [facility] Utilities Answer Date Recorded In the past 12 months has [employer] electric, gas, oil, or water company threatened to shut off services in your [...] place to sleep or slept in a detention (including now)? No 09/27/2023 Sex and Gender [...] for kidney stones. Add fresh lemon or ione juice to your water. These fruits are [...] 5 to 10 minutes. Cystoscopy ?? 2009 [facility], [place] Govt[employer] has certain rights The cystoscope is inserted [...] remains responsible for your urologic care at [facility]. Lab or Imaging Results If labs were ordered, you will receive the results via your [employer]) account if you have one. Results are automatically released to your everyArt [employer]) account once available. This means that you may see your results before we have had a chance to review them. After the results become available, comments from our team are typically posted to your [employer]) account within 2-5 business days. We usually wait until all or nearly all of the lab results have returned and make a onetime comment rather than comment on each lab result individually. Please donot send a [employer] message requesting follow up/advice on labs or [...] you. If you do not have a [employer] account, results typically arrive by mail within [...] you! Get Cost of Care Estimates - [phone] The health insurance marketplace has changed dramatically in the last few years. Our cost of care service will provide estimates over the phone for treatments or procedures billed through [facility]. To receive a cost estimate, simply call [phone] during regular business hours. If you have [...] but this was not performed due to project scheduler did not have a phone number for the patient/son. She returned to [facility] 09/26/23 with severe flank pain and pyuria. During that admission she had ureteroscopy, laser lithotripsy, and ureteral stent placement. Patient is seen with professional phone business owner/engineer. Family present for support but patient requested [...] constraints on scheduling that. Ultimately, through the business owner/engineer, patient voiced her consent to proceed. 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 After sterile prep of the external genitalia a 16F flexible cystoscope was advanced into the bladder under direct vision. The urethra was unremarkable. The bladder was carefully evaluated and found to be free of tumor or stone. No diverticula noted. The [facility] It was grasped and removed without [...] kidney documented in this encounter Care Teams Strategic Communications Specialist Relationship Specialty Start Date End Date No Primary/Referring, Phy PCP - General 08/26/23 documented as of this encounter
--- OUTSIDE RECORDS SUMMARY | 2023-12-23 16:24 | XMS_ITS | Clinical Summary ---
Author Organization [employer] [facility] Address [place], [place] [address] Care Team Providers Care Medical Language Specialist Name Role Phone John San MD Primary Care Provider [phone] Allergies No known active allergies Medications Medication [...] 1 year or otherwise directed by your movie operator 30 Tablet 11/13/2022 Active evolocumab (Repatha [...] (left leg) per Dr. Zoie Moses post [place] 02/06/2010 CAD sp NSTEMI (non-ST elevated myocardial infarc tion) 02/05/2010 Overview: - 02/05/10 presented to [place] ED with severe SOTO, developed chest pain, EKG showed anterolateral ST/T changes, and high troponins, transferred to [facility] 02/05/10 for further evaluation - [...] Date Resolved Date Chest pain, unspecified 05/28/2010 120 06/2009 Postoperative anemia due to acute blood loss [...] 04/17/2021 1 COVID-19 vaccine series (3 - 2022- season) 2023 08/31/2020, 08/10/2020 Influenza for age 65+ 02/27/2024 03/18/2010 Medical Devices Implanted Type Area Sectional Belt Mold Assembler Device Identifier Shelf Expiration Date Model / Serial / Lot Iol Rowan +24.5 [employer]ecnis Zcb00 - [id number] Implanted:Qty: 1 on 08/25/2017 by Chidi Hadley MD at [facility] Left: Eye [employer] 06/11/2021 ZCB00# / [id number] / Iol Rowan +24.5 [employer]ecnis Zcb00 - [id number] Implanted:Qty: 1 on 2017 by Chidi Hadley MD at [facility] Right: [employer] 05/31/2021 ZCB00# / [id number] / Advance Directives * Full Code (Latest [...] 11:17 AM 08/25/2017 3:50 PM Care Teams Medical Language Specialist Relationship Specialty Start Date End Date John San MD [address] [place] [address] PCP - General Family Practice 11/12/22
--- OUTSIDE RECORDS SUMMARY | 2023-12-23 16:24 | XMS_ITS | Encounter Summary ---
Author Organization [facility] Address [address] [place] [address] Care Team Providers Care Fire Sprinkler Inspector Name Role Phone No Primary/Referring, Phy Primary Care Provider Unavailable Encounter Details Date Type Department Care Team (Late st Contact Info) Description 09/27/2023 Telephone [facility] [address] [facility]. [place], [place] [id number] Jenna Fermin PA-C [address] [place] [address] Social History Tobacco Use Types Packs/Day Years Used Date Smoking Tobacco: Never Assessed [facility] Utilities Answer Date Recorded In the past 12 months has [facility] electric, gas, oil, or water [employer] threatened to shut off services in your [...] on filedocumented in this encounter Care Teams Fire Sprinkler Inspector Relationship Specialty Start Date End Date No Primary/Referring, Phy PCP - General 08/26/23 documented as of this encounter
--- OUTSIDE RECORDS SUMMARY | 2023-12-23 16:24 | XMS_ITS | Encounter Summary ---
Author Organization [facility] Address [address], [place] [address] Care Team Providers Care Student Dean Name Role Phone No Primary/Referring, Phy Primary [...] Expiration Date Visits Re quested Visits Authorized [id number] 1 1 Encounter Details Date Type Department Care Team (Late st Contact Info) Description 09/26/2023 8:00 PM CDT Ancillary Procedure [facility] [address] [address] Social History Tobacco Use Types Packs/Day Years Used Date Smoking Tobacco: Never Assessed [facility] Utilities Answer Date Recorded In the past 12 months has [facility] electric, gas, oil, or water company threatened [...] place to sleep or slept in a skilled nursing (including now)? No 09/27/2023 Sex and Gender [...] mL documented in this encounter Care Teams Student Dean Relationship Specialty Start Date End Date No Primary/Referring, Phy PCP - General 08/26/23 documented as of this encounter
--- OUTSIDE RECORDS SUMMARY | 2023-12-23 16:24 | XMS_ITS | Encounter Summary ---
Author Organization [facility] Address [address] [place] [address] Care Team Providers Care Telecommunications Field Engineer Name Role Phone No Primary/Referring, Phy Primary Care Provider Unavailable Reason for Visit * Reason Comments Future Appointments Encounter Details Date Type Department Care Team (Late st Contact Info) Description 09/14/2023 Telephone [facility] [address] [place] [address] Unknown, Physician [address] [place] [address] Future Appointments Social History Tobacco Use Types [...] on filedocumented in this encounter Care Teams Telecommunications Field Engineer Relationship Specialty Start Date End Date No Primary/Referring, Phy PCP - General 08/26/23 documented as of this encounter
--- OUTSIDE RECORDS SUMMARY | 2023-12-23 16:24 | XMS_ITS | Encounter Summary ---
Author Organization [facility] Address [address], [place] [address] Care Team Providers Care Data Center Technician Name Role Phone No Primary/Referring, Phy [...] Expiration Date Visits Re quested Visits Authorized [id number] 1 1 Encounter Details Date Type Department Care Team (Late st Contact Info) Description 09/29/2023 5:30 PM CDT Ancillary Procedure [facility] [address] [place] [id number] Social History Tobacco Use Types Packs/Day Years Used Date Smoking Tobacco: Never Assessed [facility] Utilities Answer Date Recorded In the past 12 months has [facility] electric, gas, oil, or water company [...] place to sleep or slept in a longterm (including now)? No 09/27/2023 Sex and Gender [...] 7:29 PM CDT Fluoroscopy provided by a industrial engineering technologist. Exact fluoroscopy time is documented in end of exam information in EPIC Simran Kunz APRN, [employer] RAD GD documented in this encounter Visit Diagnoses Not on filedocumented in this encounter Care Teams Data Center Technician Relationship Specialty Start Date End Date No Primary/Referring, Phy PCP - General 08/26/23 documented as of this encounter
--- OUTSIDE RECORDS SUMMARY | 2023-12-23 16:24 | XMS_ITS | Encounter Summary ---
Author Organization Formerly [facility] Address [address], [place] [address] Care Team Providers Care Chemical Milling Processor Name Role Phone No Primary/Referring, Phy Primary Care Provider Unavailable Reason for Referral * Consult/Transfer Care (Routine) - New Request Specialty Diagnoses / Procedures Referred By Alfonso t Referred To Contact Diagnoses Urinary tract infection with hematuria, site unspecified Left ureteral stone Hydronephrosis of left kidney Complicated UTI (urinary tract infection) Simran Kunz APRN, CNP [address] [place] [id number] Referral ID Status Reason Start Date Expiration Date V isits Requested Visits Authorized [id number] New Request 09/30/2023 12/29/2023 1 1 Scheduling Instructions Your clinician has recommended an appointment with [facility] for your ongoing patient care. You can quickly make your appointment online at [email or web address]. You can also call [phone] for help scheduling your appointment. We suggest you call your health insurance company about your coverage and benefits for this appointment. Question Answer What type of follow up? IP Discharge Appointment Urgency? Non-Urgent Comments Primary Care Provider: No Primary/Referring * (Routine) - Incomplete Specialty Diagnoses / Procedures Referred By Contac t Referred To Contact Procedures XR C-Arm 1-1.5 Hours Simran Kunz APRN, CNP [address] [place] [phone] Referral ID Status Reason Start Date Expiration Date V isits Requested Visits Authorized [id number] Incomplete 09/29/2023 12/28/2024 1 1 * Procedure/Equipment (Routine) - Incomplete Specialty Diagnoses / Procedures Referred By Contac t Referred To Contact Procedures CT Abd Pelvis W IV Grey Cornejo PA-C [address] [place] [address] Referral ID Status Reason Start Date Expiration Date V isits Requested Visits Authorized [id number] Incomplete 09/26/2023 12/25/2024 1 1 Reason for [...] Expiration Date Visits Re quested Visits Authorized [id number] 1 1 Encounter Details Date Type Department Care Team (Late st Contact Info) Description 09/26/2023 7:33 PM CDT - 09/30/2023 2:15 PM CDT Hospital Encounter RH C[address] [place] [phone] Edilma Sandy MD [address] [place] [address] Filemon Rachel MD [address] [place] [id number] Robert Martin MD [address] [place] [address] Ramona Angel PA-C [address] [place] [phone] Gordon Lama APRN, RICARDO [address] [place] [address] [place] [address] Simran Kunz, PRESS SMITH HELPER, ICE MAKER [address] [place] [address] Left ureteral stone (Primary Dx); Left flank pain; Urinary tract infection with hematuria, site unspecified; Renal stones; Pain; Hydronephrosis of left kidney; Complicated UTI (urinary tract infection); Hematuria syndrome; Hydronephrosis with renal and ureteral calculus obstruction Discharge Disposition: Home Social History Tobacco Use Types Packs/Day Years Used Date Smoking Tobacco: Never Assessed [facility] Utilities Answer Date Recorded In the past 12 months has th e [employer], gas, oil, or water [employer] threatened to shut off services in your [...] encounter Discharge Summaries * Simran Kunz, SHAYNE, ICE MAKER - 09/30/2023 11:54 AM CDT [facility] Medicine Discharge Summary Patient ID: Pilar Messina [id number] 78 y.o. 1945 Admit date: 09/26/2023 Discharge [...] Her son by the bedsideinterpreting, declines professional developmental education instructor. Reports pain is similar to prior ureteral colic, not resolved completely since her discharge. She was supposed to follow with urology 2-4 weeks after stent was placed but this has not happened yet. She reports her pain was worse over the last 1 week so they went to outside hospital at [place] and she was prescribed oral antibiotics and [...] 04 at 10 am. - Discussed with [facility] developmental education instructor discharge instructions and with family Acute on [...] Your Medications These medications were sent to [facility] [address] [place] [id number] Hours: Open 24x7 acetaminophen 325 MG tablet [...] Sheppard PA-C [facility] [id number] Significant Diagnostic Studies (imaging, labs, micro, etc), [...] 35 minutes including, but not limited to, [id number] time spent reviewing records, counseling, and coordination of care. Simran Kunz APRN, RICARDO [facility] Medicine documented in this encounter Discharge [...] and exam is facilitated by the professional [facility] developmental education instructor, via iPad Language Line, to assist in [...] Chronic Issues CAD s/p CABG 2009, s/p CYRSTAL x4, 10/2022: Hold METAL CLEANER Plavix for upcoming procedure, continue ASA and [...] Care: Full Simran Kunz APRN, CNP Hospitalist, [facility] * Antonina Potts PA-C - [...] with any questions. Antonina Potts PA-C [facility] 09/29/23 8:05 AM * Millie Morales PA-C [...] CABG 2009, s/p CRYSTAL x4, 10/2022: Hold METAL CLEANER Plavix for upcoming procedure, continue ASA and [...] Care: Full Simran Kunz APRN, CNP Hospitalist, [facility] * Gordon Lama APRN, CNP [...] CABG 2009, s/p CRYSTAL x4, 10/2022: Hold METAL CLEANER Plavix for upcoming procedure, continue ASA and [...] Care: Full Gordon Lama APRN, DI Hospitalist, [facility] Pager: [phone] documented in this encounter Procedure Notes * Jose Gee MD - 09/30/2023 12:00 AM CDT NAME: PILAR MESSINA CSN: [id number] OPERATIVE REPORT DATE OF SURGERY: 09/29/2023 : 1945 SURGEON: JOSE GEE MD PREOPERATIVE DIAGNOSES: 1. Previous stenting for a left obstructing ureteral stone. 2. Recent admission for sepsis and urinary tract infection. POSTOPERATIVE DIAGNOSES: 1. Previous stenting for a left obstructing ureteral stone. 2. Recent admission for sepsis and urinary tract infection. OPERATION PERFORMED: Left ureteroscopy with laser lithotripsy and stent replacement. AGENCY TRAINER: None. ANESTHESIA: General endotracheal. ESTIMATED BLOOD LOSS: [...] case was begun by inserting a 22- Hebrew rigid cystoscope into the bladder under direct [...] 1 week for stent removal. MD ALEKSEY TANNER/SABIHA /[id number] documented in this encounter Consult Notes * [...] but this was not performed due to ticket scheduler did not have a phone number for the patient/son. She presented to [facility] yesterday for evaluation of left abdominal/flank pain since her last discharge. Her pain had worsened last week and she was evaluated at [place] and prescribed antibioticsand referred to [facility], but transfer request was never completed. Upon [...] 0.9 % 100 mL IVPB 2 g [id number] (NS) Filemon Rachel MD [Held by provider [...] Resource Strain: High Risk (06/28/2021) Received from [facility] Financial Resource Strain Difficulty of Paying [...] PELVIS W IV CONT LOCATION: [facility] DATE: 09/26/2023 INDICATION: Left-sided abdominal [...] and exam is facilitated by the professional [facility] developmental education instructor,to assist in providing culturally sensitive care. The remaining interpretation provided by family. Millie Morales PA-C 09/27/2023, 7:48 AM documented in this encounter OR Notes * H&P - Filemon Rachel MD - 09/26/2023 11:58 PM CDT Images from the original note were not included. [facility] Medicine History & Physical Patient name: Pilar Messina : 1945 Date of Admission: 09/26/2023 7:33 PM Date of Service: 09/27/2023 Attending/Staff: Filemon Rachel MD Acls Nurse Used: Her son interpreting by the bedsiderenita professional developmental education instructor. Chief Complaint Abdminla pain History of Present Illness 78 y.o. female with PMH of hypertension, CAD, obstructing left ureteral stone with hydronephrosis s/p ureteral stent on 08/27/2023 presents with left side abdominal/flank pain. Her son by the bedsideinterpretingrenita professional developmental education instructor. Reports pain is similar to prior ureteral colic, not resolved completely since her discharge. She was supposed to follow with urology 2-4 weeks after stent was placed but this has not happened yet. She reports her pain was worse over the last 1 week so they went to outside hospital at [place] and she was prescribed oral antibiotics and referred to [facility]. Reports associated dysuria but denies any fever [...] Resource Strain: High Risk (06/28/2021) Received from [facility] [employer] [facility] Financial Resource Strain Difficulty of Paying [...] 138/61 -- -- 65 16 96 % 09/26/238 128/77 97.3 ??F (36.3 ??C) Oral 75 [...] results for input(s): PH, PHV, PHCAP, PCO2, YDW2AZP, PCO2V, DOC6RQG, PO2, PO2ART, PO2V, PO2CAP in the last [...] Keep NPO after midnight # Hypertension Continue METAL CLEANER metoprolol # CAD s/p CABG 2009, s/p CRYSTAL x4, 10/2022 Hold METAL CLEANER Plavix, continue ASA and Crestor # Chronic LLE pain Continue METAL CLEANER gabapentin # History of HFpEF Not in exacerbation, continue holding Lasix( on hold since last discharge) FEN: NPO, IV LR at 75 mL per/hr PPx: SCDs Lines/Catheters: PIV Level of Care: General care Code Status/Goals of Care: Full code This note may contain text created using speech-recognition software and may contain unintended word substitutions. Filemon Rachel MD [facility] Medicine, [facility] Pager: [phone] documented in this encounter ED Notes * Jimena Delcid RN - 09/27/2023 12:40 AM CDT Patient transported to unit via transport aid * Grey Espinosa PA-C - 09/26/2023 8:07 PM CDT [facility] Visit Note Chief Complaint: Abdominal Pain HPI Pilar Messina is a 78 y.o. female that presents to the ED for evaluation of abdominal pain. Patient is here with her son Patricia who serves as [facility] developmental education instructor. Patient had a ureteral stent placed in July. She was supposed to have 2 week follow up, but this never happened. Over the last week, patient has been having increased pain, pain with urination, and pain with eating. Patient was recently admitted to [place] for fluids, and antibiotics. Patient denies any [...] appointment never happened. Patient did present to [place], where a transfer request was initiated, but [...] visit, and supervised patient care with the hull drafter. [KG] 0925 CT Abd Pelvis W IV Cont IMPRESSION: [...] Multilevel degenerative disc disease lumbar spine. [TJ] 232 UA Conditional UC: Clean Catch(!) UA concerning for infection, patient was started on ceftriaxone. [TJ] 2320 Liver Panel (Hepatic Function Panel)(!) LFTs within normal limits. [TJ] 2320 Basic Metabolic Panel(!) Normal basic metabolic panel, no BETTY. [TJ] 2320 Complete Blood Count no Diff(!) CBC without evidence of leukocytosis, reassuring for systemic infection. [TJ] 234 Hospital medicine team paged for admission. [TJ] WedSep 27, 2023 002 Patient is accepted for inpatient admission. [TJ] [...] - 10.5 x10(9)/L 09/30/2023 7:40 AM T [facility] RBC 4.33 3.90 - 5.03 x10(12)/L 09/30/2023 7:40 AM [facility] Hemoglobin 11.1(L) 12.0 - 15.5 g/dL 09/30/2023 7:40 AM [facility] HCT 36.2 34.9 - 44.5 % 09/30/2023 7:40 AM [facility] MCV 83.6 80.0 - 100.0 fL 09/30/2023 7:40 AM T [facility] MCH 25.6(L) 27.6 - 33.3 pg 09/30/2023 7:40 AM [facility] MCHC 30.7(L) 31.5 - 35.2 g/dL 09/30/2023 7:40 AM [facility] RDW 14.9 11.9 - 15.5 % 09/30/2023 7:40 AM [facility] Platelets 200 150 - 450 x10(9)/L 09/30/2023 7:40 AM [facility] Automated NRBC 0 <=0 /100 WBC 09/30/2023 7:40 AM [facility] Blood Venipuncture / Unknown 09/30/2023 7:24 AM CDT 09/30/2023 7:33 AM CDT Simran Kunz APRN, ICE MAKER LAB_[address] [address], [facility] * (ABNORMAL) Basic Metabolic Panel (09/30/2023 7:24 AM CDT) Sodium 140 136 - 145 mmol/L 09/30/2023 8:01 AM [facility] Potassium 4.1 3.5 - 5.1 mmol/L 09/30/2023 8:01 AM [facility] Chloride 106 98 - 109 mmol/L 09/30/2023 8:01 AM [facility] CO2 22 20 - 29 mmol/L 09/30/2023 8:01 AM [facility] Anion Gap 12 7 - 16 mmol/L 09/30/2023 8:01 AM [facility] Calcium 9.2 8.4 - 10.4 mg/dL 09/30/2023 8:01 AM [facility] BUN 11 7 - 26 mg/dL 09/30/2023 8:01 AM [facility] Creatinine 0.71 0.55 - 1.02 mg/dL 09/30/2023 8:01 AM [facility] Glucose 119(H) 70 - 100 mg/dL 09/30/2023 8:01 AM [facility] Comment:The given reference range is for the fasting state. Non-fasting reference range for glucose is 70 - 180 mg/dL. GFR, Estimated >60 >60 mL/min/1.7 3m2 09/30/2023 8:01 AM [facility] Blood Venipuncture / Unknown 09/30/2023 7:24 AM CDT 09/30/2023 7:33 AM CDT Simran Kunz APRN ICE MAKER LAB_1 Performing Organization Address [facility] [place] [address], [facility] * Glucose, Whole Blood POCT (09/29/2023 7:39 PM CDT) Glucose, Whole Blood 109 70 - 180 mg/dL 09/29/2023 7:41 PM [facility] Performing Location [facility] PACU 09/29/2023 7:41 PM [facility] Blood 09/29/2023 7:39 PM CDT 09/29/2023 7:41 PM CDT Simran Kunz APRN, ICE MAKER LAB_1 Performing Organization Address City/[facility]/ZIP Co de Phone Number [address] * XR C-Arm 1-1.5 Hours (09/29/2023 7:28 PM CDT) Anatomical Region Laterality Modality X-Ray Angiograph y Narrative 09/29/2023 7:29 PM CDT Fluoroscopy provided by a resident in diagnostic radiology. Exact fluoroscopy time is documented in end of exam information in EPIC Simran Kunz APRN, CNP RAD GD * Glucose, Whole Blood POCT (09/29/2023 4:07 AM CDT) Pathologist [facility] Glucose, Whole Blood 98 70 - 180 mg/dL 09/29/2023 4:10 AM CDT [facility] Performing Location [facility] C91 09/29/2023 4:10 AM CDT [facility] Blood 09/29/2023 4:07 AM CDT 09/29/2023 4:10 AM CDT Simran Kunz APRN, CNP LAB_1 Performing Organization Address [facility] Co de Phone Number [address] * IV Insertion, LST Perform (09/28/2023 9:41 AM CDT) Pathologist [facility] IV INSERTION, LST PERFORM (LAB) Done 09/28/2023 12:00 PM CDT [facility] Other Specimen Type IV Start / Unknown 09/28/2023 9:41 AM CDT 09/28/2023 10:02 AM CDT Simran Kunz APRN, CNP LAB_1 Performing Organization Address [facility] Co de Phone Number [address] * Basic Metabolic Panel (09/28/2023 7:33 AM CDT) Sodium 140 136 - 145 mmol/L 09/28/2023 8:28 AM CDT [facility] Potassium 4.0 3.5 - 5.1 mmol/L 09/28/2023 8:28 AM [facility] Chloride 108 98 - 109 mmol/L 09/28/2023 8:28 AM [facility] CO2 21 20 - 29 mmol/L 09/28/2023 8:28 AM [facility] Anion Gap 11 7 - 16 mmol/L 09/28/2023 8:28 AM [facility] Calcium 8.8 8.4 - 10.4 mg/dL 09/28/2023 8:28 AM [facility] BUN 10 7 - 26 mg/dL 09/28/2023 8:28 AM [facility] Creatinine 0.72 0.55 - 1.02 mg/dL 09/28/2023 8:28 AM [facility] Glucose 97 70 - 100 mg/dL 09/28/2023 8:28 AM [facility] Comment:The given reference range is for the fasting state. Non-fasting reference range for glucose is 70 - 180 mg/dL. GFR, Estimated >60 >60 mL/min/1.7 3m2 09/28/2023 8:28 AM [facility] Blood Venipuncture / Unknown 09/28/2023 7:33 AM CDT 09/28/2023 7:55 AM CDT Gordon Lama APRN, CNP LAB_[address] * Folate Only (4Hr Fast Recommended) (09/27/2023 2:03 PM CDT) Folate 11.7 >=7.0 ng/mL 09/29/2023 11:57 AM CDT [facility] Blood Venipuncture / Unknown 09/27/2023 2:03 PM CDT 09/27/2023 2:22 PM CDT Gordon Lama APRN, CNP LAB_1 [facility] [address] * (ABNORMAL) Hgb A1C (09/27/2023 7:17 AM CDT) Hemoglobin A1C 6.6(H) <=5.6 % 09/28/2023 10:59 AM CDT [facility] Estimated Average Glucose (Calc) 143 < 117 mg/dL 09/28/2023 10:59 AM CDT [facility] Comment:Estimated average gl ucose (eAG) converts A1c into glucose units (mg/dL) and estimates average glucose over the past approximately 3 months. The eAG reference interval (<117 mg/dL) corresponds to an A1c of <5.7%. Blood Venipuncture / Unknown 09/27/2023 7:17 AM CDT 09/27/2023 7:24 AM CDT [facility] - 09/28/2023 10:59 AM CDT For patients not previously diagnosed with diabetes: 5.7-6.4%: Increased risk for diabetes 6.5% and greater: Diagnostic for diabetes For patients diagnosed with diabetes: <8.0%: Goal of therapy for ages 18-75 Clinicians may recommend a higher or lower goal for specific individuals. Gordon Lama APRN, RICARDO LAB_1 [facility] [address] [address], [facility] * (ABNORMAL) Vitamin B12 Only (09/27/2023 7:17 AM CDT) Vitamin B12 189(L) 213 - 816 pg/mL 09/28/2023 12:02 PM CDT [facility] Blood Venipuncture / Unknown 09/27/2023 7:17 AM CDT 09/27/2023 7:24 AM CDT [facility] - 09/28/2023 12:02 PM CDT Borderline low serum Vitamin B12 values may not be diagnositic of B12 deficiency (140 to 209 pg/mL). Consider serum methylmalonic acid and homocysteine levels for confirmation. Serum B12 far below normal indicates deficency (<140 pg/mL). Gordon Lama APRN, CNP LAB_1 [facility] [address] * (ABNORMAL) Iron Profile (Iron,TIBC,%Sat.(Calc)) (09/27/2023 7:17 AM CDT) Pathologist [facility] Iron 29(L) 50 - 170 mcg/dL 09/27/2023 1:52 PM CDT [facility] Transferrin 247 180 - 382 mg/dL 09/27/2023 1:52 PM T [facility] TIBC, Calculated 309 240 - 450 mcg/dL 09/27/2023 1:52 PM T [facility] % Saturation, Calculated 9(L) 10 - 50 % 09/27/2023 1:52 PM T [facility] TIBC Interpretation Low iron, normal TIBC, possible iron deficiency. 09/27/2023 1:52 PM T [facility] Blood Venipuncture / Unknown 09/27/2023 7:17 AM CDT 09/27/2023 7:24 AM CDT Gordon Lama APRN, CNP LAB_[address] * (ABNORMAL) Complete Blood Count-W/Diff (09/27/2023 7:17 AM CDT) Pathologist [facility] WBC 4.2 3.5 - 10.5 x10(9)/L 09/27/2023 7:34 AM CDT [facility] RBC 3.89(L) 3.90 - 5.03 x10(12)/L 09/27/2023 7:34 AM [facility] Hemoglobin 9.9(L) 12.0 - 15.5 g/dL 09/27/2023 7:34 AM T [facility] HCT 33.4(L) 34.9 - 44.5 % 09/27/2023 7:34 AM [facility] MCV 85.9 80.0 - 100.0 fL 09/27/2023 7:34 AM [facility] MCH 25.4(L) 27.6 - 33.3 pg 09/27/2023 7:34 AM [facility] MCHC 29.6(L) 31.5 - 35.2 g/dL 09/27/2023 7:34 AM [facility] RDW 15.6(H) 11.9 - 15.5 % 09/27/2023 7:34 AM [facility] Platelets 167 150 - 450 x10(9)/L 09/27/2023 7:34 AM [facility] Automated NRBC 0 <=0 /100 WBC 09/27/2023 7:34 AM [facility] Neutrophil Absolute 2.4 1.7 - 7.0 10(9)/L 09/27/2023 7:34 AM [facility] Lymphocyte Absolute 1.1 1.0 - 4.8 10(9)/L 09/27/2023 7:34 AM [facility] Monocyte Absolute 0.4 0.2 - 0.9 10(9)/L 09/27/2023 7:34 AM [facility] Eosinophil Absolute 0.2 0.0 - 0.5 10(9)/L 09/27/2023 7:34 AM [facility] Basophil Absolute 0.0 0.0 - 0.3 10(9)/L 09/27/2023 7:34 AM [facility] Immature Granulocyte % 0.2 0.0 - 0.5 % 09/27/2023 7:34 AM [facility] Blood Venipuncture / Unknown 09/27/2023 7:17 AM CDT 09/27/2023 7:24 AM CDT Filemon Rachel MD LAB_[address] [address], [facility] * (ABNORMAL) Basic Metabolic Panel (09/27/2023 7:17 AM CDT) Sodium 138 136 - 145 mmol/L 09/27/2023 7:57 AM [facility] Potassium 3.8 3.5 - 5.1 mmol/L 09/27/2023 7:57 AM [facility] Chloride 110(H) 98 - 109 mmol/L 09/27/2023 7:57 AM [facility] CO2 21 20 - 29 mmol/L 09/27/2023 7:57 AM [facility] Anion Gap 7 7 - 16 mmol/L 09/27/2023 7:57 AM [facility] Calcium 8.3(L) 8.4 - 10.4 mg/dL 09/27/2023 7:57 AM [facility] BUN 8 7 - 26 mg/dL 09/27/2023 7:57 AM [facility] Creatinine 0.60 0.55 - 1.02 mg/dL 09/27/2023 7:57 AM [facility] Glucose 96 70 - 100 mg/dL 09/27/2023 7:57 AM [facility] Comment:The given reference range is for the fasting state. Non-fasting reference range for glucose is 70 - 180 mg/dL. GFR, Estimated >60 >60 mL/min/1.7 3m2 09/27/2023 7:57 AM [facility] Blood Venipuncture / Unknown 09/27/2023 7:17 AM CDT 09/27/2023 7:24 AM CDT Filemon Rachel MD LAB_1 Performing Organization Address City/[facility] [place] [address], [facility] * Glucose, Whole Blood POCT (09/27/2023 4:27 AM CDT) Glucose, Whole Blood 111 70 - 180 mg/dL 09/27/2023 4:28 AM [facility] POCT Comment 1 MD/RN Notified 09/27/2023 4:28 AM [facility] Performing Location [facility] C91 09/27/2023 4:28 AM [facility] Blood 09/27/2023 4:27 AM CDT 09/27/2023 4:28 AM CDT Filemon Rachel MD LAB_1 Performing Organization Address City/[facility]/[place] [address], [facility] * CT Abd Pelvis W IV Cont (09/26/2023 10:40 PM CDT) Anatomical Region Laterality Modality Abdomen, Pelvis Computed Tomogra phy 09/26/2023 10:4 0 PM CDT Narrative 09/26/2023 10:55 PM CDT EXAM: CT ABD PELVIS W IV CONT LOCATION: [facility] DATE: 09/26/2023 INDICATION: Left-sided abdominal pain, [...] PELVIS W IV CONT LOCATION: [facility] DATE: 09/26/2023 INDICATION: Left-sided abdominal [...] - 78 U/L 09/26/2023 10:23 PM CDT [facility] Blood Venipuncture / Unknown 09/26/2023 9:48 PM CDT 09/26/2023 9:53 PM CDT Grey Espinosa PA-C LAB_[address] * (ABNORMAL) Liver Panel (Hepatic Function Panel) (09/26/2023 9:48 PM CDT) Alkaline Phosphatase 124 40 - 150 U/L 09/26/2023 10:23 PM CDT [facility] Bilirubin, Total 0.6 0.2 - 1.2 mg/dL 09/26/2023 10:23 PM CDT [facility] Bilirubin, Direct 0.2 0.0 - 0.5 mg/dL 09/26/2023 10:23 PM T [facility] AST (SGOT) 14 10 - 40 U/L 09/26/2023 10:23 PM CDT [facility] ALT (SGPT) 11 <=55 U/L 09/26/2023 10:23 PM T [facility] Protein, Total 6.5 6.4 - 8.3 g/dL 09/26/2023 10:23 PM T [facility] Albumin 2.8(L) 3.5 - 5.0 g/dL 09/26/2023 10:23 PM T [facility] Blood Venipuncture / Unknown 09/26/2023 9:48 PM CDT 09/26/2023 9:53 PM CDT Grey Espinosa PA-C LAB_1 [place] [address], [facility] * (ABNORMAL) Basic Metabolic Panel (09/26/2023 9:48 PM CDT) Pathologist [facility] Sodium 137 136 - 145 mmol/L 09/26/2023 10:23 PM [facility] Potassium 3.8 3.5 - 5.1 mmol/L 09/26/2023 10:23 PM [facility] Chloride 107 98 - 109 mmol/L 09/26/2023 10:23 PM [facility] CO2 20 20 - 29 mmol/L 09/26/2023 10:23 PM [facility] Anion Gap 10 7 - 16 mmol/L 09/26/2023 10:23 PM [facility] Calcium 8.8 8.4 - 10.4 mg/dL 09/26/2023 10:23 PM [facility] BUN 11 7 - 26 mg/dL 09/26/2023 10:23 PM [facility] Creatinine 0.77 0.55 - 1.02 mg/dL 09/26/2023 10:23 PM [facility] Glucose 125(H) 70 - 100 mg/dL 09/26/2023 10:23 PM [facility] Comment:The given reference range is for the fasting state. Non-fasting reference range for glucose is 70 - 180 mg/dL. GFR, Estimated >60 >60 mL/min/1.7 3m2 09/26/2023 10:23 PM [facility] Blood Venipuncture / Unknown 09/26/2023 9:48 PM CDT 09/26/2023 9:53 PM CDT Grey Espinosa PA-C LAB_[address] [address], [facility] * (ABNORMAL) Complete Blood Count no Diff (09/26/2023 9:48 PM CDT) Pathologist [facility] WBC 5.6 3.5 - 10.5 x10(9)/L 09/26/2023 9:58 PM [facility] RBC 4.06 3.90 - 5.03 x10(12)/L 09/26/2023 9:58 PM [facility] Hemoglobin 10.4(L) 12.0 - 15.5 g/dL 09/26/2023 9:58 PM [facility] HCT 34.1(L) 34.9 - 44.5 % 09/26/2023 9:58 PM [facility] MCV 84.0 80.0 - 100.0 fL 09/26/2023 9:58 PM [facility] MCH 25.6(L) 27.6 - 33.3 pg 09/26/2023 9:58 PM [facility] MCHC 30.5(L) 31.5 - 35.2 g/dL 09/26/2023 9:58 PM [facility] RDW 15.6(H) 11.9 - 15.5 % 09/26/2023 9:58 PM [facility] Platelets 165 150 - 450 x10(9)/L 09/26/2023 9:58 PM [facility] Automated NRBC 0 <=0 /100 WBC 09/26/2023 9:58 PM [facility] Blood Venipuncture / Unknown 09/26/2023 9:48 PM CDT 09/26/2023 9:53 PM CDT Grey Espinosa PA-C LAB_1 Performing Organization Address City/State/[facility] [place] [address], [facility] * (ABNORMAL) Urine Culture (09/26/2023 9:02 PM CDT) Urine Culture Growth(A) 09/27/2023 5:20 PM [facility] Urine Culture <10,000 CFU/mL Mixed Bacterial Growth 09/27/2023 5:20 PM [facility] Comment: Mixed Bacterial Growth indicates the specimen is likely contaminated at collection with urogenital and/or fecal lou. The presence of organisms at <10,000 cfu/ml in culture, UTI unlikely. Urine URINE SPECIMEN COLLECTION, CLEAN CATCH / Unknown Non-blood Collection / Unknown 09/26/2023 9:02 PM CDT 09/26/2023 9:31 PM CDT Grey Espinosa PA-C LAB_[address] [address], [facility] * (ABNORMAL) UA Conditional UC: Clean Catch (09/26/2023 9:02 PM CDT) Urine Culture Comment Urinalysis results meet criteria for reflex, culture performed. 09/26/2023 9:39 PM [facility] Urine Color Light-[place] 09/26/2023 9:39 PM [facility] Urine Clarity Turbid(A) Clear 09/26/2023 9:39 PM [facility] Specific [place], Urine 1.020 <1.030 09/26/2023 9:39 PM [facility] PH Urine 6.0 5.0 - 8.0 09/26/2023 9:39 PM [facility] Protein, Urine Qual (mg/dL) 100(A) Negative, 10 , 20 09/26/2023 9:39 PM [facility] Glucose Urine Qual (mg/dL) Normal (Negative) Normal (Negative), 30 , 50 09/26/2023 9:39 PM [facility] Ketones, Urine (mg/dL) Negative Negative, Trace 09/26/2023 9:39 PM [facility] Urobilinogen, Urine (EU/dL) Normal (Negative) Normal (Negative) 09/26/2023 9:39 PM [facility] Bilirubin Urine (mg/dL) Negative Negative 09/26/2023 9:39 PM [facility] Blood, Urine (mg/dL) OVER (>1.0, Large)(A) Negative, 0.03 (Trace) 09/26/2023 9:39 PM [facility] Nitrite Urine Negative Negative 09/26/2023 9:39 PM [facility] Leukocyte Esterase, Urine (Ant/uL) 500 (Large)(A) Negative, 25 (Trace) 09/26/2023 9:39 PM [facility] Red Blood Cells >180(H) 0 - 3 /HPF 09/26/2023 9:39 PM [facility] White Blood Cells 116(H) 0 - 5 /HPF 09/26/2023 9:39 PM [facility] Squamous Epithelial Cells Occasional None Seen, Occasional, Few /HPF 09/26/2023 9:39 PM [facility] Mucus Present(A) None Seen /HPF 09/26/2023 9:39 PM CDT [facility] Urine Source Clean Catch 09/26/2023 9:39 PM CDT [facility] Urine URINE SPECIMEN COLLECTION, CLEAN CATCH / Unknown Non-blood Collection / Unknown 09/26/2023 9:02 PM CDT 09/26/2023 9:07 PM CDT Narrative [facility] - 09/26/2023 9:39 PM CDT The qualitative interpretive guidance provided (e.g., small, moderate, large) is intended to aid in quantitative result interpretation. It is not itself an FDA-cleared test result. Grey Espinosa PA-C LAB_[address] [address], [facility] documented in this encounter Visit [...] Coronary atherosclerosis of unspecified type of vessel, [place] or graft Essential hypertension (HRC) Unspecified essential hypertension Left ureteral stone * Plan of Care - Enedina Martin RN - 09/30/2023 12:10 PM CDT [facility] Discharge Note - Nursing Admission Date/Time: 09/26/2023 7:33 PM Attending MD: Simran Kunz, PRESS SMITH HELPER, ICE MAKER Patient discharged: to Home. Discharge Date: 09/30/2023 [...] - 09/30/2023 11:36 AM CDT [facility] Care Management Screening Insurance Coverage: Payor: [facility] / Plan: [facility] / Product Type: Medicaid / Primary Care Provider: No Primary/Referring Admission Info: Cognitive capacity prior to admission: oriented Independent with ADLs (Prior to Admission)? Yes Living Environment: Living Arrangements (select all that apply): Adult children Follow Up: Please consult CM/ANKUSH if needs arise Additional Comments: Chart reviewed [...] SW did place return call to patient's [facility] MYCHAL Stenr PH: [phone]. SW able to leave a message to Leena regarding patient's admission date and discharge of today. Please consult if additional needsdo arise. BIBIANA Peterson * Plan of Care - Natalia Solis RN - 09/30/2023 2:51 AM CDT Pt alert, awake and oriented x3. Disoriented to situation. Communicated via iPad developmental education instructor. Reoriented as needed. Explained POC. Denies pain, SOB and N/V/D. IV LR infusing at 75 ml/hr. Up to the BRwith A1, GB and walker. * Plan of Care - Oliver Evans RN - 09/29/2023 10:56 PM CDT [facility] Plan of Care Note Pt is alert and oriented with some confusion to time noted. Pt is calm and cooperative with cares. Son present for communication and ipad developmental education instructor used after family left. Pt reported pain and received PRN tylenol. PRN was effective. Denies N/V, SOB. IV LR infusing at 75 ml/hr. Pt went for surgery this shift and post-op vitals obtained. VS stable on RA. Call light and alarms in place for safety. --- End of Report ---[facility]. Practitioner Notified Note Name of Practitioner notified: [...] Auguste RN - 09/29/2023 1:40 PM CDT ong developmental education instructor used for assessment/cares. Pt A&Ox3, disoriented to [...] Sebastian RN - 09/29/2023 6:18 AM CDT Acls Nurse utilized w/ encounters. Patient A/O x3. VSS [...] on. Pt is Hmong speaking and requires developmental education instructor. * Plan of Care - Kelleymaria d Brea L - 09/28/2023 2:21 PM CDT Patient is A&O x3, disoriented to time. Needs [facility] developmental education instructor. Heart rate is cecilia in the 50's, [...] alarm on for safety. Assumed cares from [phone] * Plan of Care - Renetta Castillo LSW - 09/28/2023 11:16 AM CDT [facility] Care Management Screening Insurance Coverage: Payor: ARE / Plan: [facility] [employer] / Product Type: Medicaid / [...] to time, Hmong speaking only - iPad developmental education instructor used and family helping to interpret per [...] Haque RN - 09/27/2023 2:34 PM CDT [facility] Plan of Care Note Assumed care [...] and Intervention: Triage: Yellow Bands and Non-slip slat twister footwear documented in this encounter Administered Medications [...] (SUBLIMAZE) injection 25-50 mcg 25-50 mcg, Intravenous, [id number], Pain, Starting on Wed09/29/23 at 1925, Until [...] (NORMODYNE) injection 5 mg 5 mg, Intravenous, [id number], Blood Pressure >, Starting on Wed09/29/23 at [...] Nausea, Starting on Wed09/29/23 at 1925, Until Wed09/30/23 at 1615, For 2 doses, Step 1 [...] Spasticity, Starting on Wed09/27/23 at 0939, Until Wed09/30/23 at 1615 Given 09/29/2023 8:55 AM CDT [...] day, Starting on Wed09/28/23 at 0245, Until Wed09/30/23 [...] RN)2303 (Infused - Provider: Benjamin Parks RN) 2146 (Started - Provider: Oliver Evans RN)2244 (Infused - Provider: Oliver Evans RN) cephalexin (KEFLEX) capsule 500 mg 500 mg, Oral, Q12H (NON-STND), First dose on Wed09/30/23 at 1999, For 3 days, Indications: Cystitis clopidogrel (PLAVIX) tablet 75 mg 75 mg, Oral, DAILY, First dose on Wed09/27/23 at 0800, Until Discontinued, On hold since Wed09/27/2023 at 0054 until manually unheld 0800 (Automatically Held) 0800 (Automatically Held) 0800 (Automatically Held)1615 (Unheld by provider in Manage Orders - Provider: Inpatient Template [employer]) cyanocobalamin (VITAMIN B12) tablet 1,000 mcg 1,000 mcg, Oral, DAILY, First dose on Wed09/28/23 at 1415, Until Discontinued, Indications: Vitamin B12 Deficiency 1408 (Given - Provider: Ricky Hagen, NEGIN) 0850 (Given - Provider: Kelly Auguste, NEGIN) 0930 [...] Auguste RN) 0930 (Given - Provider: Enedina Martin, NEGIN) sennosides-docusate sodium (SENOKOT S) 8.6-50 MG per tablet 1 Tablet 1 Tablet, Oral, BID, First dose on Wed09/28/23 at 2000, Until Discontinued, as laxative/stimulant, stool-softening agent, Indications: Constipation, While on iron 2042 (Given - Provider: Estelle Dahl RN) 0849 (Given - Provider: Kelly Auguste RN)2100 (Given - Provider: Oliver Evans RN) 0930 (Given - Provider: Enedina Martin, NEGIN) Continuous Medication Order 09/28/2023 09/29/2023 09/30/2023 lactated ringers infusion Intravenous, at 75 mL/hr, CONTINUOUS, Starting on Wed09/27/23 at 0115 0420 (Subsequent Bag - Provider: Isamar Calhoun RN)1940 (Subsequent Bag - Provider: Jayna Alvarenga RN)2230 (Stopped - Provider: Benjamin Parks RN)2303 (Restarted - Provider: Benjamin Parks RN) 0906 (Subsequent Bag - Provider: Kelly Auguste RN) 0124 (Subsequent Bag - Provider: Morgan Harper RN) lactated ringers infusion (CANCELED) Intravenous, [...] each other. 0857 (Given - Provider: Ricky M Kulhanek Derks, RN) 0857 (Given - Provider: Kelly Auguste RN)1614 (Given - Provider: Oliver Evans RN) benzocaine-menthol (Chloraseptic) lozenge 1 Lozenge 1 Lozenge, Oral, Q2H PRN, Throat Pain, Cough, Starting on Wed09/27/23 at 0054, Until Wed09/30/23 at 1615 bisacodyl (DULCOLAX) rectal suppository 10 [...] (SUBLIMAZE) injection 25-50 mcg 25-50 mcg, Intravenous, [id number], Pain, Starting on Wed09/29/23 at 1925, Until [...] at 1340, Until Julianna 09/30/23 at 1615, Give 15g orally, recheck POCT [...] at 1925, Until Julianna 09/30/23 at 1615, PACU USE ONLY 0.2 mg [...] 1757, Until Julianna 09/30/23 at 1615, Intra-op 175 (Given - Provider: Jose Gee MD - Comment: Mixed 1:1 with NaCl on sterile field) labetalol (NORMODYNE) injection 5 mg 5 mg, Intravenous, [id number], Blood Pressure >, Starting on Wed09/29/23 at [...] Oral, BID PRN, Urinary Spasticity, Starting on 09/27/23 at 0939, Until Julianna 09/30/23 at 1615 [...] at 1340, Until Julianna 09/30/23 at 1615, Give 15g orally, recheck POCT [...] Practitioner. documented in this encounter Care Teams Chemical Milling Processor Relationship Specialty Start Date End Date No Primary/Referring, Phy PCP - General 08/26/23 documented as of this encounter
--- OUTSIDE RECORDS SUMMARY | 2023-12-23 16:24 | XMS_ITS | Encounter Summary ---
Author Organization [facility] [address], [place] [address] Care Team Providers [place] Library Director Name Role Phone No Primary/Referring, Phy Primary [...] Expiration Date Visits Re quested Visits Authorized [id number] 1 1 Encounter Details Date Type Department Care Team (Late st Contact Info) Description 09/29/2023 6:32 PM CDT Anesthesia Event [facility] Operating Room [address] [place] [id number] Jr Zheng MD [address] [place] [address] Anesthesia Record Procedure Summary Procedure Name Responsible Anesthesiologist Anesthesia Start Time Anesthesia Stop Time Thulium LASER CYSTOSCOPIC REMOVAL URETERAL STONE WITH LEFT URETERAL STENT EXCHANGE, LEFT RETROGRADE PYELOGRAM, STONE BASKET EXTRACTION (Left) Jr Zheng MD 09/29/23 1832 09/29/231939 Events Date Time Event Comment 09/29/2023 183 An Start 1836 An Start Data 1840 An Induction 1840 MD/DO Present 1845 An Intubation 1900 an gabbie [...] by Jimena Peraza APRN, CRNA 1939 An [facility] Care transferre d. Meds Name Total fentaNYL injection [...] Extubation By: VALERI; Transferred with Oxygen: Yes 09/29/23 184 by Jimena Peraza APRN, CRNA 09/29/231932 by Jimena Peraza APRN, CRNA Incision/Surgical Site 09/29/23; 1907; #1; No; Vagina; 10/14/23; 1415 09/29/23 1907 by Lisa Max RN 10/14/23 1415 by Ca, Discontinue documented in this encounter Social History Tobacco Use Types Packs/Day Years Used Date Smoking Tobacco: Never Assessed [facility] Utilities Answer Date Recorded In the past 12 months has th e electric, gas, oil, or water company threatened [...] Zheng MD - 09/29/2023 7:54 PM CDT [facility] Anesthesia Post-op Note Patient: Sendy Moses Post-Op Diagnosis: Pre-Op Diagnosis Codes: * Left ureteral stone [N20.1] Procedure Performed: Procedure(s): Left - Thulium LASER CYSTOSCOPIC REMOVAL URETERAL STONE WITH LEFT URETERAL STENT EXCHANGE, LEFT RETROGRADE PYELOGRAM, STONE BASKET EXTRACTION - Wound Class: 2 CLEAN-CONTAMINATED Anesthesia Type: General Post-op vital signs: Vitals Value Taken Time BP 139/72 09/29/23 1950 Temp 98.2 ??F (36.8 ??C) 09/29/231935 Pulse [...] Zheng MD - 09/29/2023 6:32 PM CDT [facility] Anesthesia Pre-op Evaluation Procedure: Thulium LASER CYSTOSCOPIC [...] QT 506 ms QTc 488 ms P [place] 102 degrees R [place] 46 degrees T [place] -27 degrees Physical Exam: BP 111/62 (BP [...] 1841, Until Wed09/29/23 at 194 Given 09/29/2023 6:57 PM CDT 4 mg fentaNYL (SUBLIMAZE) injection Intravenous, Starting on Wed09/29/23 at 1903, Until Wed09/29/23 at 194 Given 09/29/2023 7:08 PM CDT 0.5 mL [...] on Wed09/29/23 at 1921, Until Wed09/29/23 at 194 Given 09/29/2023 7:21 PM CDT 4 mg phenylephrine-NaCl 0.9% (ROWAN-SYNEPHRINE) injection Intravenous, Starting on Wed09/29/23 at 1859, Until Wed09/29/23 at 1939 Given 09/29/2023 6:59 PM CDT 100 mcg propofol (DIPRIVAN) 10 mg/mL injection Intravenous, Starting on Wed09/29/23 at 1841, Until Wed09/29/23 at 1940 Given 09/29/2023 7:08 PM CDT 20 mg Given 09/29/2023 6:41 PM CDT 100 mg rocuronium (ZEMURON) injection Intravenous, Starting on Wed09/29/23 at 1841, Until Wed09/29/23 at 194 Given 09/29/2023 6:41 PM CDT 30 mg sugammadex (BRIDION) injection Intravenous, Starting on Wed09/29/23 at 1923, Until Wed09/29/23 at 1939 Given 09/29/2023 7:23 PM CDT 150 mg documented in this encounter Care Teams County Library Director Relationship Specialty Start Date End Date No Primary/Referring, Phy PCP - General 08/26/23 documented as of this encounter
--- OUTSIDE RECORDS SUMMARY | 2023-12-23 16:24 | XMS_ITS | Encounter Summary ---
Author Organization [facility] Address [address], [place] [address] Care Team Providers Care Punch Operator Name Role Phone No Primary/Referring, Phy Primary [...] Expiration Date Visits Re quested Visits Authorized [id number] 1 1 Encounter Details Date Type Department Care Team (Late st Contact Info) Description 09/29/2023 5:45 PM CDT - 09/29/2023 7:15 PM CDT Surgery Operating Room [address] [place] [id number] Jose Gee MD [address] [place] [address] [phone] Thulium LASER CYSTOSCOPIC REMOVAL URETERAL STONE WITH LEFT URETERAL STENT EXCHANGE, LEFT RETROGRADE PYELOGRAM, STONE BASKET EXTRACTION Social History Tobacco Use Types Packs/Day Years Used Date Smoking Tobacco: Never Assessed [facility] Utilities Answer Date Recorded In the past 12 months has th e electric, gas, oil, or water [employer] threatened to shut off services in your [...] encounter Discharge Summaries * Simran Kunz, SHAYNE, ENDOSCOPE TECHNICIAN - 09/30/2023 11:54 AM CDT [facility] Medicine Discharge Summary Patient ID: Pilar Messina [id number] 78 y.o. 1945 Admit date: 09/26/2023 Discharge [...] Her son by the bedsideinterpreting, declines professional extrusion bender. Reports pain is similar to prior ureteral colic, not resolved completely since her discharge. She was supposed to follow with urology 2-4 weeks after stent was placed but this has not happened yet. She reports her pain was worse over the last 1 week so they went to outside hospital at [place] and she was prescribed oral antibiotics and referred to [facility]. Reports associated dysuria but denies any fever [...] 04 at 10 am. - Discussed with [employer] extrusion bender discharge instructions and with family Acute on [...] Your Medications These medications were sent to [facility] [address] [place] [id number] Hours: Open 24x7 acetaminophen 325 MG tablet [...] [facility] PA-C [facility] [id number] Significant Diagnostic Studies (imaging, labs, micro, etc), [...] 35 minutes including, but not limited to, xyc-gnxs-md-face time spent reviewing records, counseling, and coordination of care. Simran Kunz APRN, CNP [facility] Medicine documented in this encounter Discharge Instructions [...] and exam is facilitated by the professional [facility] extrusion bender, via iPad Language Line, to assist in [...] CABG 2009, s/p CRYSTAL x4, 10/2022: Hold BOILER TUBE REAMER Plavix for upcoming procedure, continue ASA and [...] Care: Full Simran Kunz APRN, CNP Hospitalist, [facility] * Antonina Potts PA-C - 09/29/2023 8:04 [...] with any questions. Antonina Potts PA-C [facility] 09/29/23 8:05 AM * Millie Morales [...] CABG 2009, s/p CRYSTAL x4, 10/2022: Hold BOILER TUBE REAMER Plavix for upcoming procedure, continue ASA and [...] Care: Full Simran Kunz APRN, CNP Hospitalist, [facility] * Gordon Lama APRN, CNP [...] CABG 2009, s/p CRYSTAL x4, 10/2022: Hold BOILER TUBE REAMER Plavix for upcoming procedure, continue ASA and [...] Care: Full Gordon Lama APRN, DNP Hospitalist, [facility] Pager: [phone] documented in this encounter Procedure Notes * Jose Gee MD - 09/30/2023 12:00 AM CDT NAME: PILAR MESSINA CSN: [id number] OPERATIVE REPORT DATE OF SURGERY: 09/29/2023 : 1945 SURGEON: JOSE GEE MD PREOPERATIVE DIAGNOSES: 1. Previous stenting for a left obstructing ureteral stone. 2. Recent admission for sepsis and urinary tract infection. POSTOPERATIVE DIAGNOSES: 1. Previous stenting for a left obstructing ureteral stone. 2. Recent admission for sepsis and urinary tract infection. OPERATION PERFORMED: Left ureteroscopy with laser lithotripsy and stent replacement. SWATCH MAKER: None. ANESTHESIA: General endotracheal. ESTIMATED BLOOD LOSS: [...] case was begun by inserting a 22- Belizean rigid cystoscope into the bladder under direct [...] week for stent removal. MD ALEKSEY TANNER/SABIHA /[id number] documented in this encounter Consult Notes * [...] but this was not performed due to welt wheeler did not have a phone number for the patient/son. She presented to [facility] yesterday for evaluation of left abdominal/flank pain since her last discharge. Her pain had worsened last week and she was evaluated at [place] and prescribed antibioticsand referred to [facility], but transfer request was never completed. Upon [...] 0.9 % 100 mL IVPB 2 g [id number] (NS) Filemon Rachel MD [Held by provider in Manage Orders] clopidogrel (PLAVIX) tablet 75 mg 75 mg Oral Daily Filemon Rachel MD gabapentin (NEURONTIN) capsule 300 mg 300 mg Oral TID Filemon Rachel MD HYDROmorphone (DILAUDID) injection 0.2 mg 0.2 mg Intravenous Q4H PRN Filemon Rachel MD lactated ringers infusion Intravenous Continuous Filemon Rachel MD 75 mL/hr at 09/27/23 013 New Bag at 09/27/23 013 melatonin tablet 6 mg 6 mg Oral [...] Resource Strain: High Risk (06/28/2021) Received from [employer] [facility] Financial Resource Strain Difficulty of Paying [...] CT ABD PELVIS W IV CONT LOCATION: [facility] DATE: 09/26/2023 INDICATION: Left-sided abdominal [...] and exam is facilitated by the professional [facility] extrusion bender,to assist in providing culturally sensitive care. The remaining interpretation provided by family. Millie Morales PA-C 09/27/2023, 7:48 AM documented in this encounter OR Notes * H&P - Filemon Rachel MD - 09/26/2023 11:58 PM CDT Images from the original note were not included. [facility] Medicine History & Physical Patient name: Pilar Messina : 1945 Date of Admission: 09/26/2023 7:33 PM Date of Service: 09/27/2023 Attending/Staff: Filemon Rachel MD Elevator Tender Used: Her son interpreting by the bedside, declines professional extrusion bender. Chief Complaint Abdminla pain History of Present Illness 78 y.o. female with PMH of hypertension, CAD, obstructing left ureteral stone with hydronephrosis s/p ureteral stent on 08/27/2023 presents with left side abdominal/flank pain. Her son by the bedsideinterpreting, declines professional extrusion bender. Reports pain is similar to prior ureteral colic, not resolved completely since her discharge. She was supposed to follow with urology 2-4 weeks after stent was placed but this has not happened yet. She reports her pain was worse over the last 1 week so they went to outside hospital at [place] and she was prescribed oral antibiotics and referred to [facility]. Reports associated dysuria but denies any fever [...] Resource Strain: High Risk (06/28/2021) Received from [employer] [facility] Financial Resource Strain Difficulty of Paying [...] BP Temp Temp src Pulse Resp SpO2 09/26/235 123/62 -- -- 64 -- 96 % 09/26/236 138/61 -- -- 65 16 96 % [...] Alert & oriented Labs/Imaging/Other Labs: Recent Labs 09/26/23 2148 SODIUM 137 K 3.8 CHLORIDE 107 BUN 11 CREATININE 0.77 GLUCOSE 125* No results for input(s): PH, PHV, PHCAP, PCO2, GBA3VDP, PCO2V, TFP1SWW, PO2, PO2ART, PO2V, PO2CAP in the last 72 hours. Recent Labs 09/26/23 2148 ALKPHOS 124 BILIRUBINTOT 0.6 BILIRUBINDIR 0.2 ALT 11 AST 14 TPRO 6.5 ALB 2.8* Recent Labs 09/26/23 2148 WBC 5.6 HGB 10.4* HCT 34.1* Imaging: [...] Keep NPO after midnight # Hypertension Continue BOILER TUBE REAMER metoprolol # CAD s/p CABG 2009, s/p CRYSTAL x, 10/2022 Hold BOILER TUBE REAMER Plavix, continue ASA and Crestor # Chronic LLE pain Continue BOILER TUBE REAMER gabapentin # History of HFpEF Not in exacerbation, continue holding Lasix( on hold since last discharge) FEN: NPO, IV LR at 75 mL per/hr PPx: SCDs Lines/Catheters: PIV Level of Care: General care Code Status/Goals of Care: Full code This note may contain text created using speech-recognition software and may contain unintended word substitutions. Filemon Rachel MD [facility] Medicine, [facility] Pager: [phone] documented in this encounter ED Notes * Jimena Delcid RN - 09/27/2023 12:40 AM CDT Patient transported to unit via transport aid * Grey Espinosa PA-C - 09/26/2023 8:07 PM CDT [facility] Emergency Medicine Visit Note Chief Complaint: Abdominal Pain HPI Pilar Messina is a 78 y.o. female that presents to the ED for evaluation of abdominal pain. Patient is here with her son Patricia who serves as brenda extrusion bender. Patient had a ureteral stent placed in July. She was supposed to have 2 week follow up, but this never happened. Over the last week, patient has been having increased pain, pain with urination, and pain with eating. Patient was recently admitted to [place] for fluids, and antibiotics. Patient denies any [...] appointment never happened. Patient did present to [place], where a transfer request was initiated, but never completed on 09/24/2023. Today, patient's symptoms concerning for pyelonephritis. Can not rule out other abdominal pathology. We will plan to get labs, treat patient's pain with Dilaudid, start patient on fluids, and get CT scan. See continued workup below. Grey Espinosa PA-C ED Course as of 09/27/2320 Sun Sep 26, [id number] ATTENDING: I personally saw the patient, performed damian elements of the visit, and supervised patient care with the water resource specialist. [KG] 2312 CT Abd Pelvis W [...] - 10.5 x10(9)/L 09/30/2023 7:40 AM CDT [facility] RBC 4.33 3.90 - 5.03 x10(12)/L 09/30/2023 7:40 AM CDT [facility] Hemoglobin 11.1(L) 12.0 - 15.5 g/dL 09/30/2023 7:40 AM T [facility] HCT 36.2 34.9 - 44.5 % 09/30/2023 7:40 AM CDT [facility] MCV 83.6 80.0 - 100.0 fL 09/30/2023 7:40 AM CDT [facility] MCH 25.6(L) 27.6 - 33.3 pg 09/30/2023 7:40 AM [facility] MCHC 30.7(L) 31.5 - 35.2 g/dL 09/30/2023 7:40 AM [facility] RDW 14.9 11.9 - 15.5 % 09/30/2023 7:40 AM [facility] Platelets 200 150 - 450 x10(9)/L 09/30/2023 7:40 AM [facility] Automated NRBC 0 <=0 /100 WBC 09/30/2023 7:40 AM [facility] Blood Venipuncture / Unknown 09/30/2023 7:24 AM CDT 09/30/2023 7:33 AM CDT Simran Kunz APRN, ENDOSCOPE TECHNICIAN LAB_[address] [address], [facility] * (ABNORMAL) Basic Metabolic Panel (09/30/2023 7:24 AM CDT) Sodium 140 136 - 145 mmol/L 09/30/2023 8:01 AM [facility] Potassium 4.1 3.5 - 5.1 mmol/L 09/30/2023 8:01 AM [facility] Chloride 106 98 - 109 mmol/L 09/30/2023 8:01 AM [facility] CO2 22 20 - 29 mmol/L 09/30/2023 8:01 AM [facility] Anion Gap 12 7 - 16 mmol/L 09/30/2023 8:01 AM [facility] Calcium 9.2 8.4 - 10.4 mg/dL 09/30/2023 8:01 AM [facility] BUN 11 7 - 26 mg/dL 09/30/2023 8:01 AM [facility] Creatinine 0.71 0.55 - 1.02 mg/dL 09/30/2023 8:01 AM [facility] Glucose 119(H) 70 - 100 mg/dL 09/30/2023 8:01 AM [facility] Comment:The given reference range is for the fasting state. Non-fasting reference range for glucose is 70 - 180 mg/dL. GFR, Estimated >60 >60 mL/min/1.7 3m2 09/30/2023 8:01 AM CDT [facility] Blood Venipuncture / Unknown 09/30/2023 7:24 AM CDT 09/30/2023 7:33 AM CDT Simran Kunz APRN, CNP LAB_1 Performing Organization Address [facility] Co de Phone Number [address] * Glucose, Whole Blood POCT (09/29/2023 7:39 PM CDT) Glucose, Whole Blood 109 70 - 180 mg/dL 09/29/2023 7:41 PM CDT [facility] Performing Location LAB PACU 09/29/2023 7:41 PM CDT [facility] Blood 09/29/2023 7:39 PM CDT 09/29/2023 7:41 PM CDT Simran Kunz APRN, CNP LAB_[address] Performing Organization Address [facility] Co de Phone Number [address] * XR C-Arm 1-1.5 Hours (09/29/2023 7:28 PM CDT) Anatomical Region Laterality Modality X-Ray Angiograph y Narrative 09/29/2023 7:29 PM CDT Fluoroscopy provided by a learning technologist. Exact fluoroscopy time is documented in end of exam information in EPIC Simran Kunz APRN, CNP RAD GD * Glucose, Whole Blood POCT (09/29/2023 4:07 AM CDT) Glucose, Whole Blood 98 70 - 180 mg/dL 09/29/2023 4:10 AM CDT [facility] Performing Location LAB C91 09/29/2023 4:10 AM CDT [facility] Blood 09/29/2023 4:07 AM CDT 09/29/2023 4:10 AM CDT Simran Kunz APRN, CNP LAB_1 Performing Organization Address City/[facility]/ZIP Co de Phone Number [address] * IV Insertion, LST Perform (09/28/2023 9:41 AM CDT) IV INSERTION, LST PERFORM (LAB) Done 09/28/2023 12:00 PM [facility] Other Specimen Type IV Start / Unknown 09/28/2023 9:41 AM CDT 09/28/2023 10:02 AM CDT Simran Jeanne Kunz APRN, CNP LAB_1 Performing Organization Address [facility] Co de Phone Number [address] * Basic Metabolic Panel (09/28/2023 7:33 AM CDT) Pathologist [facility] Sodium 140 136 - 145 mmol/L 09/28/2023 8:28 AM [facility] Potassium 4.0 3.5 - 5.1 mmol/L 09/28/2023 8:28 AM [facility] Chloride 108 98 - 109 mmol/L 09/28/2023 8:28 AM [facility] CO2 21 20 - 29 mmol/L 09/28/2023 8:28 AM [facility] Anion Gap 11 7 - 16 mmol/L 09/28/2023 8:28 AM [facility] Calcium 8.8 8.4 - 10.4 mg/dL 09/28/2023 8:28 AM [facility] BUN 10 7 - 26 mg/dL 09/28/2023 8:28 AM [facility] Creatinine 0.72 0.55 - 1.02 mg/dL 09/28/2023 8:28 AM [facility] Glucose 97 70 - 100 mg/dL 09/28/2023 8:28 AM [facility] Comment:The given reference range is for the fasting state. Non-fasting reference range for glucose is 70 - 180 mg/dL. GFR, Estimated >60 >60 mL/min/1.7 3m2 09/28/2023 8:28 AM [facility] Blood Venipuncture / Unknown 09/28/2023 7:33 AM CDT 09/28/2023 7:55 AM CDT Gordon Lama APRN, CNP LAB_[address] * Folate Only (4Hr Fast Recommended) (09/27/2023 2:03 PM CDT) Folate 11.7 >=7.0 ng/mL 09/29/2023 11:57 AM CDT [facility] [place] [facility] Blood Venipuncture / Unknown 09/27/2023 2:03 PM CDT 09/27/2023 2:22 PM CDT Gordon Lama APRN, CNP LAB_1 Performing Organization Address City/[facility]/ZIP Co de Phone Number [facility] [address] * (ABNORMAL) Hgb A1C (09/27/2023 7:17 AM CDT) Hemoglobin A1C 6.6(H) <=5.6 % 09/28/2023 10:59 AM CDT [facility] Estimated Average Glucose (Calc) 143 < 117 mg/dL 09/28/2023 10:59 AM CDT [facility] [place] [facility] Comment:Estimated average gl ucose (eAG) converts A1c into glucose units (mg/dL) and estimates average glucose over the past approximately 3 months. The eAG reference interval (<117 mg/dL) corresponds to an A1c of <5.7%. Blood Venipuncture / Unknown 09/27/2023 7:17 AM CDT 09/27/2023 7:24 AM CDT Stanley [facility] - 09/28/2023 10:59 AM CDT For patients not previously diagnosed with diabetes: 5.7-6.4%: Increased risk for diabetes 6.5% and greater: Diagnostic for diabetes For patients diagnosed with diabetes: <8.0%: Goal of therapy for ages 18-75 Clinicians may recommend a higher or lower goal for specific individuals. Gordon Lama APRN, CNP LAB_1 Performing Organization Address [facility] Co de Phone Number [facility] [address] * (ABNORMAL) Vitamin B12 Only (09/27/2023 7:17 AM CDT) Vitamin B12 189(L) 213 - 816 pg/mL 09/28/2023 12:02 PM CDT [facility] Blood Venipuncture / Unknown 09/27/2023 7:17 AM CDT 09/27/2023 7:24 AM CDT Narrative [facility] - 09/28/2023 12:02 PM CDT Borderline low serum Vitamin B12 values may not be diagnositic of B12 deficiency (140 to 209 pg/mL). Consider serum methylmalonic acid and homocysteine levels for confirmation. Serum B12 far below normal indicates deficency (<140 pg/mL). Gordon Lama APRN, CNP LAB_1 Performing Organization Address [facility] de Phone Number [facility] [address] * (ABNORMAL) Iron Profile (Iron,TIBC,%Sat.(Calc)) (09/27/2023 7:17 AM CDT) Iron 29(L) 50 - 170 mcg/dL 09/27/2023 1:52 PM T [facility] Transferrin 247 180 - 382 mg/dL 09/27/2023 1:52 PM T [facility] TIBC, Calculated 309 240 - 450 mcg/dL 09/27/2023 1:52 PM [facility] % Saturation, Calculated 9(L) 10 - 50 % 09/27/2023 1:52 PM T [facility] TIBC Interpretation Low iron, normal TIBC, possible iron deficiency. 09/27/2023 1:52 PM CDT [facility] Blood Venipuncture / Unknown 09/27/2023 7:17 AM CDT 09/27/2023 7:24 AM CDT Gordon Katie Lama GRADUATE FELLOW, ENDOSCOPE TECHNICIAN LAB_[address] [address], [facility] * (ABNORMAL) Complete Blood Count-W/Diff (09/27/2023 7:17 AM CDT) WBC 4.2 3.5 - 10.5 x10(9)/L 09/27/2023 7:34 AM [facility] RBC 3.89(L) 3.90 - 5.03 x10(12)/L 09/27/2023 7:34 AM [facility] Hemoglobin 9.9(L) 12.0 - 15.5 g/dL 09/27/2023 7:34 AM [facility] HCT 33.4(L) 34.9 - 44.5 % 09/27/2023 7:34 AM [facility] MCV 85.9 80.0 - 100.0 fL 09/27/2023 7:34 AM [facility] MCH 25.4(L) 27.6 - 33.3 pg 09/27/2023 7:34 AM [facility] MCHC 29.6(L) 31.5 - 35.2 g/dL 09/27/2023 7:34 AM [facility] RDW 15.6(H) 11.9 - 15.5 % 09/27/2023 7:34 AM [facility] Platelets 167 150 - 450 x10(9)/L 09/27/2023 7:34 AM [facility] Automated NRBC 0 <=0 /100 WBC 09/27/2023 7:34 AM [facility] Neutrophil Absolute 2.4 1.7 - 7.0 10(9)/L 09/27/2023 7:34 AM [facility] Lymphocyte Absolute 1.1 1.0 - 4.8 10(9)/L 09/27/2023 7:34 AM [facility] Monocyte Absolute 0.4 0.2 - 0.9 10(9)/L 09/27/2023 7:34 AM [facility] Eosinophil Absolute 0.2 0.0 - 0.5 10(9)/L 09/27/2023 7:34 AM [facility] Basophil Absolute 0.0 0.0 - 0.3 10(9)/L 09/27/2023 7:34 AM [facility] Immature Granulocyte % 0.2 0.0 - 0.5 % 09/27/2023 7:34 AM [facility] Blood Venipuncture / Unknown 09/27/2023 7:17 AM CDT 09/27/2023 7:24 AM CDT Filemon Rachel MD LAB_[address] [address], [facility] * (ABNORMAL) Basic Metabolic Panel (09/27/2023 7:17 AM CDT) Sodium 138 136 - 145 mmol/L 09/27/2023 7:57 AM [facility] Potassium 3.8 3.5 - 5.1 mmol/L 09/27/2023 7:57 AM [facility] Chloride 110(H) 98 - 109 mmol/L 09/27/2023 7:57 AM [facility] CO2 21 20 - 29 mmol/L 09/27/2023 7:57 AM [facility] Anion Gap 7 7 - 16 mmol/L 09/27/2023 7:57 AM [facility] Calcium 8.3(L) 8.4 - 10.4 mg/dL 09/27/2023 7:57 AM [facility] BUN 8 7 - 26 mg/dL 09/27/2023 7:57 AM [facility] Creatinine 0.60 0.55 - 1.02 mg/dL 09/27/2023 7:57 AM [facility] Glucose 96 70 - 100 mg/dL 09/27/2023 7:57 AM [facility] Comment:The given reference range is for the fasting state. Non-fasting reference range for glucose is 70 - 180 mg/dL. GFR, Estimated >60 >60 mL/min/1.7 3m2 09/27/2023 7:57 AM [facility] Blood Venipuncture / Unknown 09/27/2023 7:17 AM CDT 09/27/2023 7:24 AM CDT Filemon Rachel MD LAB_1 Performing Organization Address City/[facility]/ZIP Co de Phone Number [address] * Glucose, Whole Blood POCT (09/27/2023 4:27 AM CDT) Glucose, Whole Blood 111 70 - 180 mg/dL 09/27/2023 4:28 AM CDT [facility] POCT Comment 1 MD/RN Notified 09/27/2023 4:28 AM CDT [facility] Performing Location RCLAB C91 09/27/2023 4:28 AM CDT [facility] Blood 09/27/2023 4:27 AM CDT 09/27/2023 4:28 AM CDT Filemon Rachel MD LAB_1 Performing Organization Address [facility] de Phone Number [address] * CT Abd Pelvis W IV Cont (09/26/2023 10:40 PM CDT) Anatomical Region Laterality Modality Abdomen, Pelvis Computed Tomogra phy 09/26/2023 10:4 0 PM CDT Narrative 09/26/2023 10:55 PM CDT EXAM: CT ABD PELVIS W IV CONT LOCATION: [facility] DATE: 09/26/2023 INDICATION: Left-sided abdominal [...] CT ABD PELVIS W IV CONT LOCATION: [facility] DATE: 09/26/2023 INDICATION: Left-sided abdominal [...] CT * Lipase (09/26/2023 9:48 PM CDT) [facility] Lipase 11 8 - 78 U/L 09/26/2023 10:23 PM CDT [facility] Blood Venipuncture / Unknown 09/26/2023 9:48 PM CDT 09/26/2023 9:53 PM CDT Grey Espinosa PA-C LAB_1 [place] [address], [facility] * (ABNORMAL) Liver Panel (Hepatic Function Panel) (09/26/2023 9:48 PM CDT) Pathologist [facility] Alkaline Phosphatase 124 40 - 150 U/L 09/26/2023 10:23 PM CDT [facility] Bilirubin, Total 0.6 0.2 - 1.2 mg/dL 09/26/2023 10:23 PM [facility] Bilirubin, Direct 0.2 0.0 - 0.5 mg/dL 09/26/2023 10:23 PM [facility] AST (SGOT) 14 10 - 40 U/L 09/26/2023 10:23 PM [facility] ALT (SGPT) 11 <=55 U/L 09/26/2023 10:23 PM [facility] Protein, Total 6.5 6.4 - 8.3 g/dL 09/26/2023 10:23 PM [facility] Albumin 2.8(L) 3.5 - 5.0 g/dL 09/26/2023 10:23 PM [facility] Blood Venipuncture / Unknown 09/26/2023 9:48 PM CDT 09/26/2023 9:53 PM CDT Grey Espinosa PA-C LAB_1 Performing Organization Address [facility]/State/[facility] Co de Phone Number [address] * (ABNORMAL) Basic Metabolic Panel (09/26/2023 9:48 PM CDT) Sodium 137 136 - 145 mmol/L 09/26/2023 10:23 PM [facility] Potassium 3.8 3.5 - 5.1 mmol/L 09/26/2023 10:23 PM [facility] Chloride 107 98 - 109 mmol/L 09/26/2023 10:23 PM [facility] CO2 20 20 - 29 mmol/L 09/26/2023 10:23 PM [facility] Anion Gap 10 7 - 16 mmol/L 09/26/2023 10:23 PM [facility] Calcium 8.8 8.4 - 10.4 mg/dL 09/26/2023 10:23 PM [facility] BUN 11 7 - 26 mg/dL 09/26/2023 10:23 PM [facility] Creatinine 0.77 0.55 - 1.02 mg/dL 09/26/2023 10:23 PM [facility] Glucose 125(H) 70 - 100 mg/dL 09/26/2023 10:23 PM [facility] Comment:The given reference range is for the fasting state. Non-fasting reference range for glucose is 70 - 180 mg/dL. GFR, Estimated >60 >60 mL/min/1.7 3m2 09/26/2023 10:23 PM [facility] Blood Venipuncture / Unknown 09/26/2023 9:48 PM CDT 09/26/2023 9:53 PM CDT Grey Espinosa PA-C LAB_[id number] [place] [address] * (ABNORMAL) Complete Blood Count no Diff (09/26/2023 9:48 PM CDT) WBC 5.6 3.5 - 10.5 x10(9)/L 09/26/2023 9:58 PM [facility] RBC 4.06 3.90 - 5.03 x10(12)/L 09/26/2023 9:58 PM [facility] Hemoglobin 10.4(L) 12.0 - 15.5 g/dL 09/26/2023 9:58 PM [facility] HCT 34.1(L) 34.9 - 44.5 % 09/26/2023 9:58 PM [facility] MCV 84.0 80.0 - 100.0 fL 09/26/2023 9:58 PM [facility] MCH 25.6(L) 27.6 - 33.3 pg 09/26/2023 9:58 PM [facility] MCHC 30.5(L) 31.5 - 35.2 g/dL 09/26/2023 9:58 PM [facility] RDW 15.6(H) 11.9 - 15.5 % 09/26/2023 9:58 PM [facility] Platelets 165 150 - 450 x10(9)/L 09/26/2023 9:58 PM [facility] Automated NRBC 0 <=0 /100 WBC 09/26/2023 9:58 PM [facility] Blood Venipuncture / Unknown 09/26/2023 9:48 PM CDT 09/26/2023 9:53 PM CDT Grey Espinosa ALEK-C LAB_[address] Performing Organization Address [facility] Co de Phone Number [address] * (ABNORMAL) Urine Culture (09/26/2023 9:02 PM CDT) Urine Culture Growth(A) 09/27/2023 5:20 PM CDT [facility] Urine Culture <10,000 CFU/mL Mixed Bacterial Growth 09/27/2023 5:20 PM CDT [facility] Comment: Mixed Bacterial Growth indicates the specimen is likely contaminated at collection with urogenital and/or fecal lou. The presence of organisms at <10,000 cfu/ml in culture, UTI unlikely. Urine URINE SPECIMEN COLLECTION, CLEAN CATCH / Unknown Non-blood Collection / Unknown 09/26/2023 9:02 PM CDT 09/26/2023 9:31 PM CDT Grey Espinosa ALEK-C LAB_1 Performing Organization Address [facility] de Phone Number [address] * (ABNORMAL) UA Conditional UC: Clean Catch (09/26/2023 9:02 PM CDT) Urine Culture Comment Urinalysis results meet criteria for reflex, culture performed. 09/26/2023 9:39 PM CDT [facility] Urine Color Light-Clarke 09/26/2023 9:39 PM T [facility] Urine Clarity Turbid(A) Clear 09/26/2023 9:39 PM T [facility] Specific [place], Urine 1.020 <1.030 09/26/2023 9:39 PM T [facility] PH Urine 6.0 5.0 - 8.0 09/26/2023 9:39 PM T [facility] Protein, Urine Qual (mg/dL) 100(A) Negative, 10 , 20 09/26/2023 9:39 PM [facility] Glucose Urine Qual (mg/dL) Normal (Negative) Normal (Negative), 30 , 50 09/26/2023 9:39 PM T [facility] Ketones, Urine (mg/dL) Negative Negative, Trace 09/26/2023 9:39 PM [facility] Urobilinogen, Urine (EU/dL) Normal (Negative) Normal (Negative) 09/26/2023 9:39 PM [facility] Bilirubin Urine (mg/dL) Negative Negative 09/26/2023 9:39 PM [facility] Blood, Urine (mg/dL) OVER (>1.0, Large)(A) Negative, 0.03 (Trace) 09/26/2023 9:39 PM [facility] Nitrite Urine Negative Negative 09/26/2023 9:39 PM [facility] Leukocyte Esterase, Urine (Ant/uL) 500 (Large)(A) Negative, 25 (Trace) 09/26/2023 9:39 PM [facility] Red Blood Cells >180(H) 0 - 3 /HPF 09/26/2023 9:39 PM [facility] White Blood Cells 116(H) 0 - 5 /HPF 09/26/2023 9:39 PM [facility] Squamous Epithelial Cells Occasional None Seen, Occasional, Few /HPF 09/26/2023 9:39 PM [facility] Mucus Present(A) None Seen /HPF 09/26/2023 9:39 PM [facility] Urine Source Clean Catch 09/26/2023 9:39 PM [facility] Urine URINE SPECIMEN COLLECTION, CLEAN CATCH / Unknown Non-blood Collection / Unknown 09/26/2023 9:02 PM CDT 09/26/2023 9:07 PM [facility] - 09/26/2023 9:39 PM CD The qualitative interpretive guidance provided (e.g., small, moderate, large) is intended to aid in quantitative result interpretation. It is not itself an FDA-cleared test result. Grey Espinosa PA-C LAB_[address] [address], [facility] documented in this encounter Visit [...] Coronary atherosclerosis of unspecified type of vessel, chicken ranch or graft Essential hypertension (HRC) Unspecified essential hypertension Left ureteral stone Left ureteral stone * Plan of Care - Enedina Martin RN - 09/30/2023 12:10 PM CDT [facility] Discharge Note - Nursing Admission Date/Time: 09/26/2023 7:33 PM Attending MD: Simran Kunz APRN, CNP Patient discharged: to Home. Discharge Date: 09/30/2023 [...] Castillo LSW - 09/30/2023 11:36 AM CDT [facility] Care Management Screening Insurance Coverage: Payor: [facility] / Plan: [facility] USP PLUS / Product Type: Medicaid / Primary [...] SW did place return call to patient's [facility] MYCHAL Stern PH: [phone]. SW able to leave a message to Leena regarding patient's admission date and discharge of today. Please consult if additional needsdo arise. BIBIANA Peterson * Plan of Care - Natalia Solis RN - 09/30/2023 2:51 AM CDT Pt alert, awake and oriented x3. Disoriented to situation. Communicated via iPad extrusion bender. Reoriented as needed. Explained POC. Denies pain, SOB and N/V/D. IV LR infusing at 75 ml/hr. Up to the BRwith A1, GB and walker. * Plan of Care - Oliver Evans RN - 09/29/2023 10:56 PM CDT [facility] Plan of Care Note Pt is alert and oriented with some confusion to time noted. Pt is calm and cooperative with cares. Son present for communication and ipad extrusion bender used after family left. Pt reported pain and received PRN tylenol. PRN was effective. Denies N/V, SOB. IV LR infusing at 75 ml/hr. Pt went for surgery this shift and post-op vitals obtained. VS stable on RA. Call light and alarms in place for safety. --- End of Report ---[facility]. Practitioner Notified Note Name of Practitioner [...] Auguste RN - 09/29/2023 1:40 PM CDT [employer] extrusion bender used for assessment/cares. Pt A&Ox3, disoriented to [...] Sebastian RN - 09/29/2023 6:18 AM CDT Elevator Tender utilized w/ encounters. Patient A/O x3. VSS on RA. Denies pain, SOB or N/V/D. NPO at midnight. Ongoing IV LR 75cc/hr. Voiding adequately, A1 w/ walker to toilet. Pre-op checklist done. CHG bath performed. Call light in place, advised to call for assistance. Bed alarm on. Frequent roundsdone. * Plan of Care - Estelle Walter, NEGIN - 09/28/2023 11:59 PM CDT Pt A&O x3, not oriented to time. Denies any pain. No SOB. SBA when ambulating to bathroom. Pt NPO after midnight for ureteroscopy procedure tomorrow. On continuous LR. Call light within reach, pt able to make needs known. Bed alarm on. Pt is Hmong speaking and requires extrusion bender. * Plan of Care - Brea Muir - 09/28/2023 2:21 PM CDT Patient is A&O x3, disoriented to time. Needs ong extrusion bender. Heart rate is cecilia in the 50's, [...] alarm on for safety. Assumed cares from [id number] * Plan of Care - Renetta Castillo LSW - 09/28/2023 11:16 AM CDT [facility] Care Management Screening Insurance Coverage: Payor: [facility] / Plan: [facility] USP PLUS / Product Type: Medicaid / Primary [...] to time, Hmong speaking only - iPad extrusion bender used and family helping to interpret per [...] Haque RN - 09/27/2023 2:34 PM CDT [facility] Plan of Care Note Assumed [...] and Intervention: Triage: [employer] and Non-slip manager operations and procurement footwear documented in this encounter Administered Medications Inactive Administered Medications - up to 3 most recent administrations Medication Order AUG Action Action Date Dose Rate Site acetaminophen [...] (SUBLIMAZE) injection 25-50 mcg 25-50 mcg, Intravenous, [id number], Pain, Starting on Wed09/29/23 at 1925, Until [...] (NORMODYNE) injection 5 mg 5 mg, Intravenous, [id number], Blood Pressure >, Starting on Wed09/29/23 at 1925, Until Julianna 09/30/23 at 1615, Must call anesthesia before initiating medication. Give q 5 minutes PRN up to 25 mg. (PACU use only), PACU (only) lactated ringers infusion Intravenous, at 75 mL/hr, CONTINUOUS, Starting on 09/27/23 at 0115 Subsequent Bag 09/30/2023 1:24 AM [...] in Manage Orders - Provider: Inpatient Template [facility]) cyanocobalamin (VITAMIN B12) tablet 1,000 mcg 1,000 [...] Brea Muir)1408 (Given - Provider: Ricky Hagen RN)204 (Given - Provider: Estelle Dahl RN) 0850 [...] Kelly Auguste, NEGIN)2100 (Given - Provider: Oliver Evans, RN) 0930 (Given - Provider: Enedina Martin RN) Continuous Medication Order 09/28/2023 09/29/2023 09/30/2023 lactated ringers infusion Intravenous, at 75 mL/hr, CONTINUOUS, Starting on Wed09/27/23 at 0115 0420 (Subsequent Bag - Provider: Isamar Calhoun RN)1940 (Subsequent Bag - Provider: Jayna Alvarenga, NEGIN)2230 (Stopped - Provider: Benjamin Parks, RN)2303 (Restarted - Provider: Benjamin Parks, RN) 0906 [...] Kelly Auguste, NEGIN)1614 (Given - Provider: Oliver Evans, NEGIN) benzocaine-menthol (Chloraseptic) lozenge 1 Lozenge 1 Lozenge, [...] (SUBLIMAZE) injection 25-50 mcg 25-50 mcg, Intravenous, [id number], Pain, Starting on Wed09/29/23 at 1925, Until [...] (NORMODYNE) injection 5 mg 5 mg, Intravenous, [id number], Blood Pressure >, Starting on Wed09/29/23 at 1925, Until Jluianna 09/30/23 at 1615, Must call anesthesia before [...] at 1615 0855 (Given - Provider: Kelly Auguste, NEGIN) polyethylene glycol (MIRALAX) oral powder 17 g(Linked [...] Practitioner. documented in this encounter Care Teams Punch Operator Relationship Specialty Start Date End Date No Primary/Referring, Phy PCP - General 08/26/23 documented as of this encounter
--- OUTSIDE RECORDS SUMMARY | 2023-12-23 16:24 | XMS_ITS | Encounter Summary ---
Author Organization [facility] Address [address] [address] Care Team Providers Care Brine Tank Operator Name Role Phone No Primary/Referring, Phy Primary Care Provider Unavailable Encounter Details Date Type Department Care Team (Latest Contact Info) Description 09/26/2023 Orders Only HIM DEPARTMENT Provider, [place] [address] Social History Tobacco Use Types Packs/Day Years Used Date Smoking Tobacco: Never Assessed [facility] Utilities Answer Date Recorded In the past 12 months has e electric, gas, oil, or water [employer] threatened to shut off services in your [...] encounter Results * EKG (09/26/2023) Interface Provider EKG documented in this encounter Visit Diagnoses Not on filedocumented in this encounter Care Teams Brine Tank Operator Relationship Specialty Start Date End Date No Primary/Referring, Phy PCP - General 08/26/23 documented as of this encounter
[2023-12-23 16:28] LABS: Chloride* 104 mmol/L (96-114)
[2023-12-23 16:29] LABS: Potassium* 3.6 mmol/L (3.6-5.1); Sodium* 136 mmol/L (135-149)
[2023-12-23 16:31] LABS: Estimated Glomerular Filt Rate 57 ml/min
[2023-12-23 16:32] LABS: Anion Gap 7 mEq/L (7-15); Blood Urea Nitrogen* 24 mg/dL (7-30); Calcium* 8.4 mg/dL (8.4-10.6); Carbon Dioxide* 25 mmol/L (20-32); Glucose* 217 mg/dL (60-115)
--- NOTE | 2023-12-23 16:32 | ED_ITS ---
HPI - General Adult General Date Seen: 12/23/23 Chief complaint: Abdominal Pain Stated complaint: Pain Lower R abdomen, shaking from pain Time Seen by Provider: 12/23/23 15:40 History of Present Illness HPI narrative: History is limited because of language barrier. History is obtained through the patient's daughter who is fluent in the bilingual. They declined formal iPad based motor vehicle parts interpreter. History is also limited, according to the patient's daughter, because the patient is moaning and not answering questions that she normally would. 78-year-old female with a history of kidney stone (underwent procedural removal and stenting done by urologist at [facility] a couple of months ago. Now thought to be improved), history of CHF, coronary disease with previous DE, triple bypass surgery done [facility] about 10 years ago, pulmonary hypertension, anemia, hyperlipidemia, and lumbar radiculopathy. She has apparently been in her usual state of health for the past several weeks. Overnight she was seeming to have some abdominal pain and apparently had some gas pain. Her daughter gave her some gas pain medication which seemed to help. Today she began moaning and shaking. She is telling her daughter that she feels, ?shaky. ?. She seemed to get much worse about 30 minutes prior to arrival so her daughter and brought her here to the ER. Now that she is here in the ER when he asked her if she is having pain, she says that she feels shaky. She is not really answering directly whether not she has pain. On exam she seems to be tender in the abdomen, more on the left than on the right. When asked directly she denies chest pain. She denies headache. She says she is not nauseous. Unable to get additional history from her. Her daughter has a picture of the med she is on-metoprolol, clopidogrel, lisinopril. In the picture there is also rosuvastatin but daughter says she is no longer on it. She is apparently not taking Other meds on her EHR list such as gabapentin, furosemide, potassium. Related Data Home Medications ?Medication ?Instructions ?Recorded ?Confirmed gabapentin 300 mg capsule 300 mg PO TID 11/16/23 11/18/23 Previous Rx's ?Medication ?Instructions ?Recorded clopidogrel 75 mg tablet 75 mg PO DAILY #90 tabs 12/10/22 furosemide 20 mg tablet 20 mg PO DAILY #90 tabs 12/10/22 lisinopril 2.5 mg tablet 2.5 mg PO DAILY #90 tabs 12/10/22 metoprolol succinate 25 mg 12.5 mg (1/2 x 25 mg) PO DAILY #45 12/10/22 tablet,extended release 24 hr tabs rosuvastatin 10 mg tablet 10 mg PO QDAY #90 tabs 12/10/22 nitroglycerin 0.4 mg sublingual 0.4 mg sublingual Q5M #25 tabs 08/04/23 tablet acetaminophen 325 mg tablet 650 mg (2 x 325 mg) PO TID PRN 10/20/23 pain #100 tabs potassium chloride 20 mEq 20 meq PO DAILY #7 tabs 11/04/23 tablet,extended release gabapentin 300 mg capsule 300 mg PO TID #90 caps 11/18/23 Allergies Allergy/AdvReac Type Severity Reaction Status Date / Time No Known Allergies Allergy Verified 12/23/23 15:31 [facility] Medical History History of myocardial infarction (02/04/10) ?I25.2 - Old myocardial infarction (ICD-10) Chronic heart failure with preserved ejection fraction ?I50.32 - Chronic diastolic (congestive) heart failure (ICD-10) Hyperlipidemia ?E78.5 - Hyperlipidemia, unspecified (ICD-10) Pulmonary hypertension ?I27.20 - Pulmonary hypertension, unspecified (ICD-10) Coronary artery disease ?I25.10 - Atherosclerotic heart disease of [place] coronary artery without angina pectoris (ICD-10) COVID-19 virus infection ?U07.1 - COVID-19 (ICD-10) 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.1 - Rheumatic tricuspid insufficiency (ICD-10) Mitral valve insufficiency ?I34.0 - Nonrheumatic mitral (valve) insufficiency (ICD-10) Left ventricular hypertrophy ?I51.7 - Cardiomegaly (ICD-10) History of migraine ?Z86.69 - Personal history of other diseases of the nervous system and sense organs (ICD-10) Surgical History History of coronary artery bypass surgery (2009) ?Z95.1 - Presence of aortocoronary bypass graft (ICD-10) History of cataract extraction (07/2017) ?Z98.49 - Cataract extraction status, unspecified eye (ICD-10) Social History Narrative: Grew up in [facility] [place], in the [place] since the [place]s. Hmong is primary language. Lives with daughter Vishal and family (near [place], they have a farm near [place]). Had 10 children, 4 living children now. Homemaker. Nonsmoker, no ETOH. Vishal would be medical decision maker if needed; requests Full Code status. What is your current living situation?: I presently have a place to live Problems where you live: no known problems In the past 12 months, utilities in danger of being shut off: no In the past 12 mos, have been you worried that your food would run out before you had money to buy more?: never true In the past 12 mos, the food you bought just didn't last and you didn't have money to buy more?: never true Highest level of school completed/degree received: never attended/kindergarten only Smoking Status: Never smoker Do you use any of these nicotine containing products: None Second hand tobacco smoke exposure: No How often do you have a drink containing alcohol: never How often do you have six or more drinks on one occasion: Never AUDIT-C Alcohol total score: 0 Non-prescribed substance use: denies use Caffeine: No How often does anyone, including family, friends and others, physically hurt you : How often does anyone, including family, friends and others, insult or talk down to you: How often does anyone, including family, friends and others, threaten you with harm: How often does anyone, including family, friends and others, scream or curse at you: Little interest or pleasure in doing things: not at all Feeling down, depressed, or hopeless: not at all service: No Exam Narrative: Exam Narrative: Constitutional: Appears well-developed and well-nourished. She is laying in the right lateral decubitus position, moaning, with her eyes closed. When her daughter talks to her she seems to pay attention but does not always directly answer questions. For instance when her daughter asks her to show as where she is hurting, the patient shakes her hands and says she is shaky. HENT: Head: Atraumatic. Nose: Nose normal. Mouth/Throat: Oral mucosa is clear and moist. no trismus. Pharynx normal. Tonsils symmetric. No tonsillar enlargement, erythema, or exudate. Eyes: She is keeping her eyes closed. Even when I ask her to open her eyes and look at my face and fingers she really does not cooperate. I am able to get her open her eyes briefly and gaze is conjugate. Unable to do formal EOM testing. No apparent nystagmus. Conjunctivae normal. No scleral icterus. Neck: Normal range of motion. Neck supple. No tracheal deviation present. No JVD Cardiovascular: Normal rate, regular rhythm. No gallop. No friction rub. No murmur heard. Symmetric radial artery pulses . Healed midline sternotomy scar. Pulmonary/Chest: Effort normal. No stridor. No respiratory distress. No wheezes. No rales. No rhonchi . No tenderness. Abdominal: Soft. Bowel sounds normal. No distension. No mass. Left-sided> right-sided tenderness. No rebound. No guarding. Musculoskeletal: RUE: Normal range of motion. No tenderness. No deformity LUE: Normal range of motion. No tenderness. No deformity RLE: Normal range of motion. No edema. No tenderness. No deformity LLE: Normal range of motion. No edema. No tenderness. No deformity Neurological: She is moaning. She is not able to answer orientation questions. History is obtained using her daughter as an motor vehicle parts interpreter. She follows some simple commands. When asked her to squeeze my fingers, she reaches out holds them, but then does not squeeze. Both hands move purposefully. No evidence for any unilateral weakness or ataxia. She is able to wiggle both toes normally. Skin: Skin is warm and dry. No rash noted. No pallor. Normal capillary refill. Psychiatric: Moaning. Possibly anxious? Possibly pain?. Limited Const: Vital Signs, click to edit/add: Vital Signs - 24 hr 12/23/23 15:31 Temperature 98.2 F Pulse Rate [Pulse Oximeter] 83 Respiratory Rate 24 Blood Pressure [Ri ght Upper Arm] 138/100 H Pulse Oximetry 98 Oxygen Delivery Me thod Room Air Course Course ED Course: Recheck-pain improving after Dilaudid. Seems to be more comfortable. Seems a bit more conversant with her daughter. Reevaluation(s) Reevaluation #1: Recheck-lactic acid elevated at 3.1. Additional IV fluids ordered. Reevaluation #2: Recheck-pain coming back, 2nd dose of Dilaudid ordered. Reevaluation #3: Recheck-CT scan confirms 7 mm stone in the proximal left ureter with associated hydronephrosis. Need urinalysis. Additional Reevaluation(s): Recheck-urinalysis abnormal. Rocephin 1 g ordered. Repeat lactic acid after completing 2 L IV fluid boluses improved from 3.1 down to 2.0. Discussed with patient and her daughter. They request transfer to a facility such as [facility]. Although she had kidney stone care at [facility] few months ago, they would like to go to any hospital other than [facility]. Discussed with Dr. Franky stovall, urology on-call for [facility]. We reviewed the patient's presentation. He agrees that she meets criteria to transfer to [facility]. Consultations Consultation #1: Recheck -[id number]. Resting. Still having some pain. Blood pressure stable. Daughter at bedside. Oxygen sats in the low 90s on room air. Still awaiting transfer to [facility]. Vital Signs Vital signs: Initial Vital Signs Temperature 98.2 F 12/23/23 15:31 Temperature Source Temporal Artery Scan 12/23/23 15:31 Pulse Rate 83 12/23/23 15:31 Respiratory Rate 12/23/23 15:31 Blood Pressure 138/100 H 12/23/23 15:31 Blood Pressure Mean 112 H 12/23/23 15:31 Blood Pressure Position Right Lateral 12/23/23 15:31 Pulse Oximetry 98 12/23/23 15:31 Oxygen Delivery Method Room Air 12/23/23 15:31 Vital Signs Temperature 98.2 F 12/23/23 15:31 Pulse Rate 83 12/23/23 15:31 Respiratory Rate 24 12/23/23 15:31 Blood Pressure 138/100 H 12/23/23 15:31 Pulse Oximetry 98 12/23/23 15:31 Oxygen Delivery Method Room Air 12/23/23 15:31 Temperature 98.2 F 12/23/23 15:31 Pulse Rate 83 12/23/23 15:31 Respiratory Rate 24 12/23/23 15:31 Blood Pressure 138/100 H 12/23/23 15:31 Pulse Oximetry 98 12/23/23 15:31 Oxygen Delivery Method Room Air 12/23/23 15:31 Medications Administered Medications: Generic Name Dose Route Start Last Admin Trade Name Freq PRN Reason Stop Dose Admin Hydromorphone HCl 0.5 mg 12/23/23 16:09 12/23/23 16:37 Hydromorphone 0.5 Mg/0.5 Ml Inj IVP 0.5 mg Q1H PRN Administration Pain Lactated Ringer's 1,000 mls @ 125 mls/hr 12/23/23 20:50 12/23/23 21:17 Lactated Ringers 1000 Ml IV 125 mls/hr .Q8H BOLIVAR Administration Discontinued Medications Generic Name Dose Route Start Last Admin Trade Name Freq PRN Reason Stop Dose Admin Hydromorphone HCl 0.5 mg 12/23/23 19:36 12/23/23 19:52 Hydromorphone 0.5 Mg/0.5 Ml Inj IVP 12/23/23 19:37 0.5 mg ONCE ONE Administration Sodium Chloride 500 mls @ 500 mls/hr 12/23/23 16:09 12/23/23 17:53 0.9 % Sodium Chloride 500 Ml IV 12/23/23 17:08 Infused .Q1H ONE Infusion Sodium Chloride 1,000 mls @ 1,000 mls/hr 12/23/23 16:45 12/23/23 20:53 0.9 % Sodium Chloride 1000 Ml IV 12/23/23 17:44 Infused .Q1H BOLIVAR Infusion Sodium Chloride 500 mls @ 500 mls/hr 12/23/23 16:39 12/23/23 17:53 0.9 % Sodium Chloride 500 Ml IV 12/23/23 17:38 Infused .Q1H ONE Infusion Ceftriaxone Sodium 1 gm/ 100 mls @ 200 mls/hr 12/23/23 20:02 12/23/23 22:05 Sodium Chloride IVPB 12/23/23 20:03 Infused ONCE ONE Infusion Ondansetron HCl 4 mg 12/23/23 16:09 12/23/23 16:36 Ondansetron 2 Mg/Ml Inj IVP 12/23/23 16:10 4 mg ONCE ONE Administration Medical Decision Making MDM Narrative Medical decision making narrative: 78-year-old Hmong speaking female presenting to the ER today with her family. She had been complaining of abdominal pain at home and is now moaning in stating that she feels shaky. History is very difficult because the patient is not really able answer my questions. She almost seems confused, but may actually be moaning because she is very uncomfortable. No focal deficits to suggest stroke. Consider possible intracranial bleed as a cause for moaning. Head CT is negative. She seemed to have abdominal pain. We did obtain abdominal CT which shows a 7 mm stone in the left proximal ureter with associated left hydronephrosis. She also has nonobstructing stones in the left renal pelvis. Suspect this is a source for pain in this patient. Urinalysis[] Laboratory workup shows normal creatinine at 1.0. Normal BUN at 24. Electrolytes normal. White blood cell count is normal at 7.9. Hemoglobin is normal. Venous lactic acid is elevated at 3.1. No definitive evidence for sepsis. However, 30 mL/kg saline bolus administered. Repeat lactic acid is improved down to 2.0. Blood pressure remains stable. In consultation with Urology and hospitalist from [facility] we agree that the patient requires transfer for expeditious stenting. Unfortunately there is of delay before any hospital bed can be open at that facility. Other facilities in the [facility] are on divert and cannot accept her at all. Therefore the will be in up to 8 hour bed delay. Fortunately this point there is no signs of acute renal failure, septic shock, or other indication that she needs emergent transfer. We will manage her pain and put her on maintenance IV fluids here. She is already CV IV antibiotics. She will be transferred by EMS once a bed becomes available. Discussed with my partner, Dr. Rojas who will oversee her care until transfer. Lab Data Labs: Lab Results 12/23/23 12/23/23 12/23/23 Range/Units 16:05 19:13 20:18 WBC 7.99 (4.50-11.00) K/uL RBC 4.78 (4.00-5.20) m/uL Hgb 12.5 (12.0-16.0) gm/dL Hct 41.4 (33.0-51.0) % MCV 87 (80-100) fL MCH 26 (26-34) pg MCHC 30 L (32-36) gm/dL RDW Coeff of Mandi 16.2 H (11.5-15.5) % Plt Count 161 (140-440) K/uL Neut % (Auto) 85.5 H (42.0-72.0) % Lymph % (Auto) 9.6 L (20-44) % [place] % (Auto) 1.6 (0.0-11.0) % Eos % (Auto) 0.6 (0.0-7.0) % Baso % (Auto) 0.4 (0.0-3.0) % Neut # (Auto) 6.80 (1.7-7.0) K/uL Lymph # (Auto) 0.80 L (0.90-2.90) K/uL [place]clean # (Auto) 0.10 (0.00-0.90) K/UL Eos # (Auto) 0.05 (0.00-0.50) K/uL Baso # (Auto) 0.03 (0.00-0.30) K/uL Abs Immat Gran (auto) 0.18 (0.00-0.30) K/uL Imm/Tot Granulo (auto) 2.3 % Sodium 136 (135-149) mmol/L Potassium 3.6 (3.6-5.1) mmol/L Chloride 104 (96-114) mmol/L Carbon Dioxide 25 (20-32) mmol/L Anion Gap 7 (7-15) mEq/L BUN 24 (7-30) mg/dL Creatinine 1.0 (0.5-1.5) mg/dL Estimated GFR 57 ml/min Glucose 217 H (60-115) mg/dL Lactate 3.1 H 2.0 H (0.5-1.9) mmol/L Calcium 8.4 (8.4-10.6) mg/dL Urine Color Yellow (Yellow) Urine Appearance Slightly Cloudy A (Clear) Urine pH 5.5 (5.0-8.5) Ur Specific [place] 1.015 (1.000-1.030) Urine Protein 1+ A (Negative) Urine Glucose (UA) Negative (Negative) Urine Ketones Negative (Negative) Urine Blood 2+ A (Negative) Urine Nitrite Positive A (Negative) Urine Bilirubin Negative (Negative) Urine Urobilinogen 1.0 (0.2-1.0) Ur Leukocyte Esterase Trace A (Negative) Urine RBC 10-25 A (0-2) Urine WBC 25-50 A (0-5) Urine WBC Clumps Few A (None) Ur Squamous Epith Cells None (None-Few) Urine Bacteria Moderate A (None) Imaging Data CT scan - abdomen: Attestation: I have reviewed the pertinent imaging results. Radiologist's impression: IMPRESSION: 1. Obstructing 0.7 cm calculus in the left proximal ureter, results in mild left hydronephrosis. 2. Additional nonobstructing calculi in the right kidney measuring up to 0.5 cm. ECG Data Attestation: I personally reviewed and interpreted this ECG as follows: Interpretation: Normal sinus rhythm Rate: 73 NE: 160 QRS axis: Right bundle-branch block. Normal axis ST segment/T wave: Nonspecific ST depression in V1, V2, V3. No ST segment elevation QTc: 504 Discharge Plan Discharge Clinical Impression: Kidney stone on left side, Acute UTI Prescriptions: No Action acetaminophen 325 mg tablet 650 mg PO TID PRN (Reason: pain) Qty: 100 3RF rosuvastatin 10 mg tablet 10 mg PO QDAY Qty: 90 3RF metoprolol succinate 25 mg tablet extended release 24 hr 12.5 mg PO DAILY Qty: 45 3RF furosemide 20 mg tablet 20 mg PO DAILY Qty: 90 3RF clopidogrel 75 mg tablet 75 mg PO DAILY Qty: 90 3RF lisinopril 2.5 mg tablet 2.5 mg PO DAILY Qty: 90 3RF potassium chloride 20 mEq tablet extended release 20 meq PO DAILY Qty: 7 2RF nitroglycerin 0.4 mg tablet, sublingual 0.4 mg sublingual Q5M Qty: 25 0RF gabapentin 300 mg capsule 300 mg PO TID gabapentin 300 mg capsule 300 mg PO TID Qty: 90 5RF Follow Up/Referrals: John San MD [Primary Care Provider] -
[2023-12-23] MEDS: ONDANSETRON 2 MG/ML inj 4 MG IVP (16:36)
[2023-12-23] MEDS: 0.9 % SODIUM CHLORIDE 500 ML 500 ML IV ×2 (16:36→17:53)
[2023-12-23] MEDS: HYDROmorphone 0.5 mg/0.5 ml inj IVP ×2 (16:37→19:52)
[2023-12-23] MEDS: 0.9 % SODIUM CHLORIDE 1000 ml 1,000 ML IV (17:53)
[2023-12-23 19:24] LABS: Bilirubin Urine Negative (Negative); Blood Urine 2+ (Negative); Color Urine Yellow (Yellow); Glucose Urine Negative (Negative); Ketones Urine Negative (Negative); Leukocyte Esterase Urine Trace (Negative); Nitrite Urine Positive (Negative); Protein Urine 1+ (Negative); Specific Gravity Urine 1.015 (1.000-1.030); pH Urine 5.5 (5.0-8.5)
[2023-12-23 19:58] LABS: Appearance Urine Slightly Cloudy (Clear)
[2023-12-23 20:02] LABS: Bacteria Urine Moderate; WBC Clumps Urine Few; WBC Urine 25-50 (0-5)
[2023-12-23] MEDS: cefTRIAXone 1 GM in 0.9 % SODIUM CHLORIDE Mini-bag 100 ML IVPB (20:48)
[2023-12-23] MEDS: LACTATED RINGERS 1000 ML 1,000 ML 125 ML IV (21:17)
[2023-12-23 22:56] VITALS: BP 114/52; PULSE 84; O2SAT 98
--- NOTE | 2023-12-24 00:21 | ED.NURSE ---
Dispatch called at 0021 for transport to [place]
[2023-12-24 00:47] VITALS: BP 139/66; PULSE 87; RESP 20; O2SAT 97
[2023-12-24] MEDS: HYDROmorphone 0.5 mg/0.5 ml inj IVP (00:48)
--- NOTE | 2023-12-24 08:46 | ED.NURSE ---
Blood culture preliminary called in to RN at [facility]. Lab report faxed to Unit at [phone]
== END 2023-12-24 00:49 | disposition home or self-care (01) ==
PROVIDERS: Emergency Provider Emergency Medicine; PCP Family Medicine
DX: N39.0 Urinary tract infection, site not specified (principal); N20.0 Calculus of kidney
CPT/HCPCS: 36415; 70450; 74177; 80048; 80053; 81001; 81003; 83605; 83690; 84484; 85025; 87040; 87086; 87186; 93005; 96365; 96374; 96375; 99284; 99285; J0696; J1170; J2405; J7030; J7120; Q9967

== ENCOUNTER 2023-12-24 00:43 | Outpatient (CLI) | payer MEDICARE, MEDICAID, SELFPAY ==
--- OUTSIDE RECORDS SUMMARY | 2023-12-26 08:22 | XMS_ITS | Clinical Summary ---
Author Organization [facility] Address [address], [place] [address] Care Team Providers Care Guitar Repairer Name Role Phone No Primary/Referring, Laureny Primary Care Provider Unavailable Source Comments You are receiving this document as you are listed as the primary care provider,follow-up provider, or the patient has been referred to you for consultation.This is in compliance with the Medicare and[facility] EHR Incentive Program,which states Providers who transition their patient to another setting of careor provider of care or refers their patient to another provider of care shouldprovide summary care record for each transition of care or referral. [facility] Allergies No known active allergies [...] Visit Specialty [facility] [address] [facility] [place] [address] Masha Sheppard PA-C Nephrolithiasis (Primary Dx) 09/29/2023 6:32 PM CDT Anesthesia Event Operating Room [address] [place] [address] Jr Zheng MD 09/29/2023 5:45 PM CDT - 09/29/2023 7:15 PM CDT Surgery Operating Room [address] [place] [address] Jose Gee MD Thulium LASER CYSTOSCOPIC REMOVAL URETERAL STONE WITH LEFT URETERAL STENT EXCHANGE, LEFT RETROGRADE PYELOGRAM, STONE BASKET EXTRACTION 09/29/2023 5:30 PM CDT Ancillary Procedure [facility] [address] [place] [address] 09/27/2023 Telephone Specialty Center [address] [place] [address] Jenna Fermin PA-C 09/26/2023 8:00 PM CDT Ancillary Procedure [facility] [address] [place] [address] 09/26/2023 7:33 PM CDT - 09/30/2023 2:15 PM CDT Hospital Encounter RH C[address] [place] [address] Edilma Sandy MD Aberra, Michael E, MD Heller, Jeffrey A, MD Muigai, MILLY Bradshaw Gabriel J, ARMAMENT REPAIRER, PHONE OPERATOR Simran Kunz APRN, PHONE OPERATOR Left ureteral stone (Primary Dx); Left [...] Tobacco: Never Tobacco Cessation:Counseling Given: Not Answered [facility] Utilities Answer Date Recorded In the past 12 months has [employer], gas, oil, or water [employer] threatened to shut off services in your [...] this topic Medical Devices Implanted Type Area Cloth Bale Header Device Identifier Shelf Expiration Date Model / Serial / Lot Stent Ureteral Ultra 6x22 - Polaris - [id number] Implanted:Qty: 1 on 09/29/2023 by Jose Gee MD at [facility] DEVICE Left: [employer] [employer] [facility] 05/14/2026 [id number] / / [id number] Explanted Type Area Cloth Bale Header Device Identifier Shelf Expiration Date Model / Serial / Lot Stent Ureteral Ultra 6x22 - [employer]aris - [id number] Implanted:Qty: 1 on 08/27/2023 by Mira Price MD at [facility] Explanted:Qty: 1 on 09/29/2023 by Jose Gee MD at [facility] DEVICE Left: [employer] [place] [employer] 04/01/2026 [id number] / / [id number] Procedures Procedure Name Priority Date/Time Associated Diagnosis [...] 136 - 145 mmol/L 09/30/2023 8:01 AM [facility] Potassium 4.1 3.5 - 5.1 mmol/L 09/30/2023 8:01 AM [facility] Chloride 106 98 - 109 mmol/L 09/30/2023 8:01 AM [facility] CO2 22 20 - 29 mmol/L 09/30/2023 8:01 AM [facility] Anion Gap 12 7 - 16 mmol/L 09/30/2023 8:01 AM [facility] Calcium 9.2 8.4 - 10.4 mg/dL 09/30/2023 8:01 AM [facility] BUN 11 7 - 26 mg/dL 09/30/2023 8:01 AM [facility] Creatinine 0.71 0.55 - 1.02 mg/dL 09/30/2023 8:01 AM [facility] Glucose 119(H) 70 - 100 mg/dL 09/30/2023 8:01 AM [facility] Comment:The given reference range is for the fasting state. Non-fasting reference range for glucose is 70 - 180 mg/dL. GFR, Estimated >60 >60 mL/min/1.7 3m2 09/30/2023 8:01 AM [facility] Blood Venipuncture / Unknown 09/30/2023 7:24 AM CDT 09/30/2023 7:33 AM CDT Simran Jeanne Kunz APRN, PHONE OPERATOR LAB_1 Performing Organization Address City/State/[facility] Co de Phone Number [id number] [place] [address] * (ABNORMAL) Complete Blood Count-No Diff (09/30/2023 7:24 AM CDT) Only the most recent of2 resultswithin the time period is included. WBC 6.5 3.5 - 10.5 x10(9)/L 09/30/2023 7:40 AM [facility] RBC 4.33 3.90 - 5.03 x10(12)/L 09/30/2023 7:40 AM [facility] Hemoglobin 11.1(L) 12.0 - 15.5 g/dL 09/30/2023 7:40 AM [facility] HCT 36.2 34.9 - 44.5 % 09/30/2023 7:40 AM [facility] MCV 83.6 80.0 - 100.0 fL 09/30/2023 7:40 AM [facility] MCH 25.6(L) 27.6 - 33.3 pg 09/30/2023 7:40 AM [facility] MCHC 30.7(L) 31.5 - 35.2 g/dL 09/30/2023 7:40 AM [facility] RDW 14.9 11.9 - 15.5 % 09/30/2023 7:40 AM [facility] Platelets 200 150 - 450 x10(9)/L 09/30/2023 7:40 AM [facility] Automated NRBC 0 <=0 /100 WBC 09/30/2023 7:40 AM [facility] Blood Venipuncture / Unknown 09/30/2023 7:24 AM CDT 09/30/2023 7:33 AM CDT Simran Kunz APRN, CNP LAB_1 Performing Organization Address [facility] Co de Phone Number [address] * Glucose, Whole Blood POCT (09/29/2023 7:39 PM CDT) Only the most recent of3 resultswithin the time period is included. Glucose, Whole Blood 109 70 - 180 mg/dL 09/29/2023 7:41 PM CDT [facility] Performing Location [facility]AB PACU 09/29/2023 7:41 PM CDT [facility] Blood 09/29/2023 7:39 PM CDT 09/29/2023 7:41 PM CDT Simran Kunz APRN, CNP LAB_1 Performing Organization Address [facility] Phone [address] * XR C-Arm 1-1.5 Hours (09/29/2023 7:28 PM CDT) Anatomical Region Laterality Modality X-Ray Angiograph y Narrative 09/29/2023 7:29 PM CDT Fluoroscopy provided by a computer engineering technologist. Exact fluoroscopy time is documented in end of exam information in EPIC Simran Kunz APRN, CNP RAD GD * IV Insertion, LST Perform (09/28/2023 9:41 AM CDT) IV INSERTION, LST PERFORM (LAB) Done 09/28/2023 12:00 PM CDT [facility] Other Specimen Type IV Start / Unknown 09/28/2023 9:41 AM CDT 09/28/2023 10:02 AM CDT Simran Kunz APRN, CNP LAB_1 Performing Organization Address [facility] Co de Phone Number [address] * Folate Only (4Hr Fast Recommended) (09/27/2023 2:03 PM CDT) Pathologist [facility] Folate 11.7 >=7.0 ng/mL 09/29/2023 11:57 AM CDT [facility] Blood Venipuncture / Unknown 09/27/2023 2:03 PM CDT 09/27/2023 2:22 PM CDT Gordon Lama APRN, RICARDO LAB_1 [facility] [address] * (ABNORMAL) Complete Blood Count-W/Diff (09/27/2023 7:17 AM CDT) [facility] WBC 4.2 3.5 - 10.5 x10(9)/L 09/27/2023 7:34 AM [facility] RBC 3.89(L) 3.90 - 5.03 x10(12)/L 09/27/2023 7:34 AM [facility] Hemoglobin 9.9(L) 12.0 - 15.5 g/dL 09/27/2023 7:34 AM [facility] HCT 33.4(L) 34.9 - 44.5 % 09/27/2023 7:34 AM [facility] MCV 85.9 80.0 - 100.0 fL 09/27/2023 7:34 AM [facility] MCH 25.4(L) 27.6 - 33.3 pg 09/27/2023 7:34 AM [facility] MCHC 29.6(L) 31.5 - 35.2 g/dL 09/27/2023 7:34 AM [facility] RDW 15.6(H) 11.9 - 15.5 % 09/27/2023 7:34 AM [facility] Platelets 167 150 - 450 x10(9)/L 09/27/2023 7:34 AM [facility] Automated NRBC 0 <=0 /100 WBC 09/27/2023 7:34 AM [facility] Neutrophil Absolute 2.4 1.7 - 7.0 10(9)/L 09/27/2023 7:34 AM CDT [facility] Lymphocyte Absolute 1.1 1.0 - 4.8 10(9)/L 09/27/2023 7:34 AM [facility] Monocyte Absolute 0.4 0.2 - 0.9 10(9)/L 09/27/2023 7:34 AM CDT [facility] Eosinophil Absolute 0.2 0.0 - 0.5 10(9)/L 09/27/2023 7:34 AM CDT [facility] Basophil Absolute 0.0 0.0 - 0.3 10(9)/L 09/27/2023 7:34 AM CDT [facility] Immature Granulocyte % 0.2 0.0 - 0.5 % 09/27/2023 7:34 AM [facility] Blood Venipuncture / Unknown 09/27/2023 7:17 AM CDT 09/27/2023 7:24 AM CDT Filemon Rachel MD LAB_1 Performing Organization Address City/State/[facility] Co de Phone Number [address] * (ABNORMAL) Hgb A1C (09/27/2023 7:17 AM CDT) Hemoglobin A1C 6.6(H) <=5.6 % 09/28/2023 10:59 AM CDT [facility] Estimated Average Glucose (Calc) 143 < 117 mg/dL 09/28/2023 10:59 AM CDT [facility] Comment:Estimated average gl ucose (eAG) converts A1c into glucose units (mg/dL) and estimates average glucose over the past approximately 3 months. The eAG reference interval (<117 mg/dL) corresponds to an A1c of <5.7%. Blood Venipuncture / Unknown 09/27/2023 7:17 AM CDT 09/27/2023 7:24 AM CDT Narrative [facility] - 09/28/2023 10:59 AM CDT For patients not previously diagnosed with diabetes: 5.7-6.4%: Increased risk for diabetes 6.5% and greater: Diagnostic for diabetes For patients diagnosed with diabetes: <8.0%: Goal of therapy for ages 18-75 Clinicians may recommend a higher or lower goal for specific individuals. Gordon Lama APRN, CNP LAB_1 Performing Organization Address [facility] de Phone Number [facility] [address] [place] [address] * (ABNORMAL) Vitamin B12 Only (09/27/2023 7:17 AM CDT) Vitamin B12 189(L) 213 - 816 pg/mL 09/28/2023 12:02 PM CDT [facility] Blood Venipuncture / Unknown 09/27/2023 7:17 AM CDT 09/27/2023 7:24 AM CDT Narrative [facility] - 09/28/2023 12:02 PM CDT Borderline low serum Vitamin B12 values may not be diagnositic of B12 deficiency (140 to 209 pg/mL). Consider serum methylmalonic acid and homocysteine levels for confirmation. Serum B12 far below normal indicates deficency (<140 pg/mL). Gordon Lama APRN, CNP LAB_1 Performing Organization Address [facility] de Phone Number [facility] [address] * (ABNORMAL) Iron Profile (Iron,TIBC,%Sat.(Calc)) (09/27/2023 7:17 AM CDT) Iron 29(L) 50 - 170 mcg/dL 09/27/2023 1:52 PM CDT [facility] Transferrin 247 180 - 382 mg/dL 09/27/2023 1:52 PM CDT [facility] TIBC, Calculated 309 240 - 450 mcg/dL 09/27/2023 1:52 PM CDT [facility] % Saturation, Calculated 9(L) 10 - 50 % 09/27/2023 1:52 PM CDT [facility] TIBC Interpretation Low iron, normal TIBC, possible iron deficiency. 09/27/2023 1:52 PM CDT [facility] Blood Venipuncture / Unknown 09/27/2023 7:17 AM CDT 09/27/2023 7:24 AM CDT Gordon J Kelby BELLA CNP LAB_[address] [address], [facility] * CT Abd Pelvis W IV Cont (09/26/2023 10:40 PM CDT) Anatomical Region Laterality Modality Abdomen, Pelvis Computed Tomogra phy 09/26/2023 10:4 0 PM CDT Narrative 09/26/2023 10:55 PM CDT EXAM: CT ABD PELVIS W IV CONT LOCATION: [facility] DATE: 09/26/2023 INDICATION: Left-sided abdominal [...] CT ABD PELVIS W IV CONT LOCATION: [facility] DATE: 09/26/2023 INDICATION: Left-sided abdominal pain, [...] - 150 U/L 09/26/2023 10:23 PM CDT [facility] Bilirubin, Total 0.6 0.2 - 1.2 mg/dL 09/26/2023 10:23 PM CDT [facility] Bilirubin, Direct 0.2 0.0 - 0.5 mg/dL 09/26/2023 10:23 PM CDT [facility] AST (SGOT) 14 10 - 40 U/L 09/26/2023 10:23 PM CDT [facility] ALT (SGPT) 11 <=55 U/L 09/26/2023 10:23 PM CDT [facility] Protein, Total 6.5 6.4 - 8.3 g/dL 09/26/2023 10:23 PM CDT [facility] Albumin 2.8(L) 3.5 - 5.0 g/dL 09/26/2023 10:23 PM CDT [facility] Blood Venipuncture / Unknown 09/26/2023 9:48 PM CDT 09/26/2023 9:53 PM CDT Grey Espinosa PA-C LAB_[address] [address], [facility] * Lipase (09/26/2023 9:48 PM CDT) Lipase 11 8 - 78 U/L 09/26/2023 10:23 PM CDT [facility] Blood Venipuncture / Unknown 09/26/2023 9:48 PM CDT 09/26/2023 9:53 PM CDT Grey Espinosa ALEK-William LAB_1 Performing Organization Address [facility] Co de Phone Number [address] * (ABNORMAL) Urine Culture (09/26/2023 9:02 PM CDT) Urine Culture Growth(A) 09/27/2023 5:20 PM CDT [facility] Urine Culture <10,000 CFU/mL Mixed Bacterial Growth 09/27/2023 5:20 PM CDT [facility] Comment: Mixed Bacterial Growth indicates the specimen is likely contaminated at collection with urogenital and/or fecal lou. The presence of organisms at <10,000 cfu/ml in culture, UTI unlikely. Urine URINE SPECIMEN COLLECTION, CLEAN CATCH / Unknown Non-blood Collection / Unknown 09/26/2023 9:02 PM CDT 09/26/2023 9:31 PM CDT Grey Espinosa ALEK-C LAB_1 Performing Organization Address [facility] Phone Number [address] * (ABNORMAL) UA Conditional UC: Clean Catch (09/26/2023 9:02 PM CDT) Urine Culture Comment Urinalysis results meet criteria for reflex, culture performed. 09/26/2023 9:39 PM CDT [facility] Urine Color Light-Teller 09/26/2023 9:39 PM T [facility] Urine Clarity Turbid(A) Clear 09/26/2023 9:39 PM T [facility] Specific [place], Urine 1.020 <1.030 09/26/2023 9:39 PM T [facility] PH Urine 6.0 5.0 - 8.0 09/26/2023 9:39 PM T [facility] Protein, Urine Qual (mg/dL) 100(A) Negative, 10 , 20 09/26/2023 9:39 PM [facility] Glucose Urine Qual (mg/dL) Normal (Negative) Normal (Negative), 30 , 50 09/26/2023 9:39 PM [facility] Ketones, Urine (mg/dL) Negative Negative, Trace 09/26/2023 9:39 PM [facility] Urobilinogen, Urine (EU/dL) Normal (Negative) Normal (Negative) 09/26/2023 9:39 PM [facility] Bilirubin Urine (mg/dL) Negative Negative 09/26/2023 9:39 PM [facility] Blood, Urine (mg/dL) OVER (>1.0, Large)(A) Negative, 0.03 (Trace) 09/26/2023 9:39 PM [facility] Nitrite Urine Negative Negative 09/26/2023 9:39 PM [facility] Leukocyte Esterase, Urine (Ant/uL) 500 (Large)(A) Negative, 25 (Trace) 09/26/2023 9:39 PM [facility] Red Blood Cells >180(H) 0 - 3 /HPF 09/26/2023 9:39 PM [facility] White Blood Cells 116(H) 0 - 5 /HPF 09/26/2023 9:39 PM [facility] Squamous Epithelial Cells Occasional None Seen, Occasional, Few /HPF 09/26/2023 9:39 PM [facility] Mucus Present(A) None Seen /HPF 09/26/2023 9:39 PM [facility] Urine Source Clean Catch 09/26/2023 9:39 PM [facility] Urine URINE SPECIMEN COLLECTION, CLEAN CATCH / Unknown Non-blood Collection / Unknown 09/26/2023 9:02 PM CDT 09/26/2023 9:07 PM CDT Narrative [facility] - 09/26/2023 9:39 PM CD The qualitative interpretive guidance provided (e.g., small, moderate, large) is intended to aid in quantitative result interpretation. It is not itself an FDA-cleared test result. Grey Espinosa PA-C LAB_[address] [address], [facility] * EKG (09/26/2023) Interface Provider EKG from [...] 3:52 AM 08/27/2023 5:53 AM Care Teams Guitar Repairer Relationship Specialty Start Date End Date No Primary/Referring, Phy PCP - General 08/26/23
--- OUTSIDE RECORDS SUMMARY | 2023-12-26 08:22 | XMS_ITS | Encounter Summary ---
Author Organization [facility] Address [address], [place] [address] Care Team Providers Care Creamery Worker Name Role Phone No Primary/Referring, Phy Primary Care Provider Unavailable Reason for Referral * Procedure/Equipment (Routine) - Incomplete Specialty Diagnoses / Procedures Referred By Alfonso killian Referred To Contact Diagnoses Nephrolithiasis Procedures US Renal W Bladder Masha Sheppard PA-C [address] [place] [address] Referral ID Status Reason Start Date Expiration Date V isits Requested Visits Authorized [id number] Incomplete 11/04/2023 02/02/2025 1 1 Reason for Visit * Reason Comments POST-OP,EXAM Encounter Details Date Type Department Care Team (Latest Contact Info) Description 10/05/2023 10:00 AM CDT Office Visit Specialty Center [address] [place] [address]. [place] [address] Masha Sheppard PA-C [address] [place] [phone] Nephrolithiasis (Primary Dx) Social History Tobacco Use Types Packs/Day Years Used Date Smoking Tobacco: Never Smokeless Tobacco: Never Tobacco Cessation:Counseling Given: Not Answered [facility] Utilities Answer Date Recorded In the past 12 months has [employer] electric, gas, oil, or water company threatened [...] place to sleep or slept in a prison (including now)? No 09/27/2023 Sex and Gender [...] for kidney stones. Add fresh lemon or sun'aq juice to your water. These fruits are [...] 5 to 10 minutes. Cystoscopy ?? 2009 [facility], U.[place]. Govt. has certain rights The [...] remains responsible for your urologic care at Replaced by [facility]. Lab or Imaging Results If labs were ordered, you will receive the results via your [employer]) account if you have one. Results are automatically released to your [id number] account once available. This means that you may see your results before we have had a chance to review them. After the results become available, comments from our team are typically posted to your [id number] account within 2-5 business days. We usually wait until all or nearly all of the lab results have returned and make a onetime comment rather than comment on each lab result individually. Please donot send a [employer] message requesting follow up/advice on labs or [...] you. If you do not have a [employer] account, results typically arrive by mail within [...] you! Get Cost of Care Estimates - [phone] The health insurance marketplace has changed dramatically in the last few years. Our cost of care service will provide estimates over the phone for treatments or procedures billed through [facility]. To receive a cost estimate, simply call [phone] during regular business hours. If you have [...] but this was not performed due to cook apprentice did not have a phone number for the patient/son. She returned to [facility] 09/26/23 with severe flank pain and pyuria. During that admission she had ureteroscopy, laser lithotripsy, and ureteral stent placement. Patient is seen with professional phone customer marketing assistant. Family present for support but patient requested [...] constraints on scheduling that. Ultimately, through the customer marketing assistant, patient voiced her consent to proceed. 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 After sterile prep of the external genitalia a 16F flexible cystoscope was advanced into the bladder under direct vision. The urethra was unremarkable. The bladder was carefully evaluated and found to be free of tumor or stone. No diverticula noted. The [facility] It was grasped and removed without [...] kidney documented in this encounter Care Teams Creamery Worker Relationship Specialty Start Date End Date No Primary/Referring, Phy PCP - General 08/26/23 documented as of this encounter
--- OUTSIDE RECORDS SUMMARY | 2023-12-26 08:23 | XMS_ITS | Encounter Summary ---
Author Organization [facility] Address [address], [place] [address] Care Team Providers Care Field Service Technician Poultry Name Role Phone No Primary/Referring, Phy Primary [...] Expiration Date Visits Re quested Visits Authorized [id number] 1 1 Encounter Details Date Type Department Care Team (Late st Contact Info) Description 09/29/2023 6:32 PM CDT Anesthesia Event RH Operating Room [address] [place] [address] Jr Zheng MD [address] [place] [address] Anesthesia Record Procedure Summary Procedure Name Responsible [...] by Jimena Peraza APRN, CRNA 1940 An [facility] Care transferre d. Meds Name Total fentaNYL [...] 4 mg sugammadex injection 200mg/ 2mL (aka TNEA LISA) 150 mg lactated ringers infusion 450 [...] Years Used Date Smoking Tobacco: Never Assessed [facility] Utilities Answer Date Recorded In the past [...] place to sleep or slept in a halfway (including now)? No 09/27/2023 Sex and Gender Information Value Date Recorded Sex Assigned at Not on file Gender Identity Not on file Sexual Orientation Not on file documented as of this encounter Miscellaneous Notes * Anesthesia Postprocedure Evaluation - Jr Zheng MD - 09/29/2023 7:54 PM CDT [facility] Anesthesia Post-op Note Patient: Sendy Moses Post-Op [...] Zheng MD - 09/29/2023 6:32 PM CDT [facility] Anesthesia Pre-op Evaluation Procedure: Thulium LASER CYSTOSCOPIC [...] QT 506 ms QTc 488 ms P [place] 102 degrees R [place] 46 degrees T [place] -27 degrees Physical Exam: BP 111/62 (BP [...] mg documented in this encounter Care Teams Field Service Technician Poultry Relationship Specialty Start Date End Date No Primary/Referring, Phy PCP - General 08/26/23 documented as of this encounter
--- OUTSIDE RECORDS SUMMARY | 2023-12-26 08:23 | XMS_ITS | Encounter Summary ---
Author Organization [facility] Address [address], [place] [address] Care Team Providers Care Back End Developer Name Role Phone No Primary/Referring, Phy Primary [...] Expiration Date Visits Re quested Visits Authorized [id number] 1 1 Encounter Details Date Type Department Care Team (Late st Contact Info) Description 09/29/2023 5:45 PM CDT - 09/29/2023 7:15 PM CDT Surgery Operating Room [address] [place] [id number] Jose Gee MD [address] [place] [address] [id number] Thulium LASER CYSTOSCOPIC REMOVAL URETERAL STONE WITH LEFT URETERAL STENT EXCHANGE, LEFT RETROGRADE PYELOGRAM, STONE BASKET EXTRACTION Social History Tobacco Use Types Packs/Day Years Used Date Smoking Tobacco: Never Assessed [facility] Utilities Answer Date Recorded In the past 12 months has th e electric, gas, oil, or water [employer] threatened to shut off services in your [...] encounter Discharge Summaries * Simran Kunz, SHAYNE, MANUFACTURING CHIEF ENGINEER - 09/30/2023 11:54 AM CDT [facility] Medicine Discharge Summary Patient ID: Pilar Messina [id number] 78 y.o. 1945 Admit date: 09/26/2023 Discharge [...] Her son by the bedsideinterpreting, declines professional skin former. Reports pain is similar to prior ureteral colic, not resolved completely since her discharge. She was supposed to follow with urology 2-4 weeks after stent was placed but this has not happened yet. She reports her pain was worse over the last 1 week so they went to outside hospital at [place] and she was prescribed oral antibiotics and referred to [facility]. Reports associated dysuria but denies any [...] 04 at 10 am. - Discussed with [employer] skin former discharge instructions and with family Acute on [...] Your Medications These medications were sent to [facility] [address] [place] [id number] Hours: Open 24x7 acetaminophen 325 MG tablet [...] [place]ard PA-C [facility] [id number] Significant Diagnostic Studies (imaging, labs, micro, etc), [...] 35 minutes including, but not limited to, [id number] time spent reviewing records, counseling, and coordination of care. Simran Kunz APRN, CNP [facility] Medicine documented in this encounter Discharge Instructions [...] and exam is facilitated by the professional [facility] skin former, via iPad Language Line, to assist in [...] CABG 2009, s/p CRYSTAL x4, 10/2022: Hold PLASTICS REPAIRER Plavix for upcoming procedure, continue ASA and [...] Care: Full Simran Kunz APRN, CNP Hospitalist, [facility] * Antonina Potts PA-C - 09/29/2023 8:04 [...] with any questions. Antonina Potts PA-C [facility] 09/29/23 8:05 AM * Millie Morales [...] CABG 2009, s/p CRYSTAL x4, 10/2022: Hold PLASTICS REPAIRER Plavix for upcoming procedure, continue ASA and [...] Care: Full Simran Kunz APRN, CNP Hospitalist, [facility] * Gordon Lama APRN, CNP [...] CABG 2009, s/p CRYSTAL x4, 10/2022: Hold PLASTICS REPAIRER Plavix for upcoming procedure, continue ASA and [...] Care: Full Gordon Lama APRN, DNP Hospitalist, [facility] Pager: [phone] documented in this encounter Procedure Notes * Jose Gee MD - 09/30/2023 12:00 AM CDT NAME: PILAR MESSINA CSN: [id number] OPERATIVE REPORT DATE OF SURGERY: 09/29/2023 : 1945 SURGEON: JOSE GEE MD PREOPERATIVE DIAGNOSES: 1. Previous stenting for a left obstructing ureteral stone. 2. Recent admission for sepsis and urinary tract infection. POSTOPERATIVE DIAGNOSES: 1. Previous stenting for a left obstructing ureteral stone. 2. Recent admission for sepsis and urinary tract infection. OPERATION PERFORMED: Left ureteroscopy with laser lithotripsy and stent replacement. SCRIPT MANAGER: None. ANESTHESIA: General endotracheal. ESTIMATED BLOOD LOSS: [...] case was begun by inserting a 22- Sri Lankan rigid cystoscope into the bladder under direct [...] week for stent removal. MD ALEKSEY TANNER/SABIHA /[id number] documented in this encounter Consult Notes * [...] but this was not performed due to outpatient surgery rn did not have a phone number for the patient/son. She presented to [facility] yesterday for evaluation of left abdominal/flank pain since her last discharge. Her pain had worsened last week and she was evaluated at [place] and prescribed antibioticsand referred to [facility], but transfer request was never completed. [...] 0.9 % 100 mL IVPB 2 g [id number] (NS) Filemon Rachel MD [Held by provider [...] Resource Strain: High Risk (06/28/2021) Received from [employer] [facility] Financial Resource Strain Difficulty of Paying [...] CT ABD PELVIS W IV CONT LOCATION: [facility] DATE: 09/26/2023 INDICATION: Left-sided [...] and exam is facilitated by the professional [facility] skin former,to assist in providing culturally sensitive care. The remaining interpretation provided by family. Millie Morales PA-C 09/27/2023, 7:48 AM documented in this encounter OR Notes * H&P - Filemon Rachel MD - 09/26/2023 11:58 PM CDT Images from the original note were not included. [facility] Medicine History & Physical Patient name: Pilar Messina : 1945 Date of Admission: 09/26/2023 7:33 PM Date of Service: 09/27/2023 Attending/Staff: Filemon Rachel MD [employer] Used: Her son interpreting by the bedside, declines professional skin former. Chief Complaint Abdminla pain History of Present Illness 78 y.o. female with PMH of hypertension, CAD, obstructing left ureteral stone with hydronephrosis s/p ureteral stent on 08/27/2023 presents with left side abdominal/flank pain. Her son by the bedsideinterpreting, declines professional skin former. Reports pain is similar to prior ureteral colic, not resolved completely since her discharge. She was supposed to follow with urology 2-4 weeks after stent was placed but this has not happened yet. She reports her pain was worse over the last 1 week so they went to outside hospital at [place] and she was prescribed oral antibiotics and referred to [facility]. Reports associated dysuria but denies any [...] Resource Strain: High Risk (06/28/2021) Received from [employer] [facility] Financial Resource Strain Difficulty of Paying [...] results for input(s): PH, PHV, PHCAP, PCO2, KBT7LWZ, PCO2V, GBY2XTR, PO2, PO2ART, PO2V, PO2CAP in the last [...] Keep NPO after midnight # Hypertension Continue PLASTICS REPAIRER metoprolol # CAD s/p CABG 2009, s/p CRYSTAL x, 10/2022 Hold PLASTICS REPAIRER Plavix, continue ASA and Crestor # Chronic LLE pain Continue PLASTICS REPAIRER gabapentin # History of HFpEF Not in exacerbation, continue holding Lasix( on hold since last discharge) FEN: NPO, IV LR at 75 mL per/hr PPx: SCDs Lines/Catheters: PIV Level of Care: General care Code Status/Goals of Care: Full code This note may contain text created using speech-recognition software and may contain unintended word substitutions. Filemon Rachel MD [facility] Medicine, [facility] Pager: [phone] documented in this encounter ED Notes * Jimena Delcid RN - 09/27/2023 12:40 AM CDT Patient transported to unit via transport aid * Grey Espinosa PA-C - 09/26/2023 8:07 PM CDT [facility] Visit Note Chief Complaint: Abdominal Pain HPI Pilar Messina is a 78 y.o. female that presents to the ED for evaluation of abdominal pain. Patient is here with her son Patricia who serves as brenda skin former. Patient had a ureteral stent placed in July. She was supposed to have 2 week follow up, but this never happened. Over the last week, patient has been having increased pain, pain with urination, and pain with eating. Patient was recently admitted to [place] for fluids, and antibiotics. Patient denies any [...] appointment never happened. Patient did present to [place], where a transfer request was initiated, but [...] visit, and supervised patient care with the team primary care physician. [KG] 2312 CT Abd Pelvis W IV [...] - 10.5 x10(9)/L 09/30/2023 7:40 AM CDT [facility] RBC 4.33 3.90 - 5.03 x10(12)/L 09/30/2023 7:40 AM CDT [facility] Hemoglobin 11.1(L) 12.0 - 15.5 g/dL 09/30/2023 7:40 AM T [facility] HCT 36.2 34.9 - 44.5 % 09/30/2023 7:40 AM CDT [facility] MCV 83.6 80.0 - 100.0 fL 09/30/2023 7:40 AM CDT [facility] MCH 25.6(L) 27.6 - 33.3 pg 09/30/2023 7:40 AM [facility] MCHC 30.7(L) 31.5 - 35.2 g/dL 09/30/2023 7:40 AM [facility] RDW 14.9 11.9 - 15.5 % 09/30/2023 7:40 AM [facility] Platelets 200 150 - 450 x10(9)/L 09/30/2023 7:40 AM [facility] Automated NRBC 0 <=0 /100 WBC 09/30/2023 7:40 AM [facility] Blood Venipuncture / Unknown 09/30/2023 7:24 AM CDT 09/30/2023 7:33 AM CDT Simran Kunz APRN, MANUFACTURING CHIEF ENGINEER LAB_[address] [address], [facility] * (ABNORMAL) Basic Metabolic Panel (09/30/2023 7:24 AM CDT) Sodium 140 136 - 145 mmol/L 09/30/2023 8:01 AM [facility] Potassium 4.1 3.5 - 5.1 mmol/L 09/30/2023 8:01 AM [facility] Chloride 106 98 - 109 mmol/L 09/30/2023 8:01 AM [facility] CO2 22 20 - 29 mmol/L 09/30/2023 8:01 AM [facility] Anion Gap 12 7 - 16 mmol/L 09/30/2023 8:01 AM [facility] Calcium 9.2 8.4 - 10.4 mg/dL 09/30/2023 8:01 AM [facility] BUN 11 7 - 26 mg/dL 09/30/2023 8:01 AM [facility] Creatinine 0.71 0.55 - 1.02 mg/dL 09/30/2023 8:01 AM [facility] Glucose 119(H) 70 - 100 mg/dL 09/30/2023 8:01 AM [facility] Comment:The given reference range is for the fasting state. Non-fasting reference range for glucose is 70 - 180 mg/dL. GFR, Estimated >60 >60 mL/min/1.7 3m2 09/30/2023 8:01 AM CDT [facility] Blood Venipuncture / Unknown 09/30/2023 7:24 AM CDT 09/30/2023 7:33 AM CDT Simran Kunz APRN, CNP LAB_1 Performing Organization Address [facility] Co de Phone Number [address] * Glucose, Whole Blood POCT (09/29/2023 7:39 PM CDT) Glucose, Whole Blood 109 70 - 180 mg/dL 09/29/2023 7:41 PM CDT [facility] Performing Location LAB PACU 09/29/2023 7:41 PM CDT [facility] Blood 09/29/2023 7:39 PM CDT 09/29/2023 7:41 PM CDT Simran Kunz APRN, CNP LAB_1 Performing Organization Address [facility] Co de Phone Number [address] * XR C-Arm 1-1.5 Hours (09/29/2023 7:28 PM CDT) Anatomical Region Laterality Modality X-Ray Angiograph y Narrative 09/29/2023 7:29 PM CDT Fluoroscopy provided by a instrumentation technologist. Exact fluoroscopy time is documented in end of exam information in EPIC Simran Kunz APRN, CNP RAD GD * Glucose, Whole Blood POCT (09/29/2023 4:07 AM CDT) Glucose, Whole Blood 98 70 - 180 mg/dL 09/29/2023 4:10 AM CDT [facility] Performing Location LAB C91 09/29/2023 4:10 AM CDT [facility] Blood 09/29/2023 4:07 AM CDT 09/29/2023 4:10 AM CDT Simran Kunz APRN, CNP LAB_1 Performing Organization Address City/[facility]/ZIP Co de Phone Number [address] * IV Insertion, LST Perform (09/28/2023 9:41 AM CDT) IV INSERTION, LST PERFORM (LAB) Done 09/28/2023 12:00 PM [facility] Other Specimen Type IV Start / Unknown 09/28/2023 9:41 AM CDT 09/28/2023 10:02 AM CDT Simran Jeanne Kunz APRN, CNP LAB_1 Performing Organization Address [facility] Co de Phone Number [address] * Basic Metabolic Panel (09/28/2023 7:33 AM CDT) Pathologist [facility] Sodium 140 136 - 145 mmol/L 09/28/2023 8:28 AM [facility] Potassium 4.0 3.5 - 5.1 mmol/L 09/28/2023 8:28 AM [facility] Chloride 108 98 - 109 mmol/L 09/28/2023 8:28 AM [facility] CO2 21 20 - 29 mmol/L 09/28/2023 8:28 AM [facility] Anion Gap 11 7 - 16 mmol/L 09/28/2023 8:28 AM [facility] Calcium 8.8 8.4 - 10.4 mg/dL 09/28/2023 8:28 AM [facility] BUN 10 7 - 26 mg/dL 09/28/2023 8:28 AM [facility] Creatinine 0.72 0.55 - 1.02 mg/dL 09/28/2023 8:28 AM [facility] Glucose 97 70 - 100 mg/dL 09/28/2023 8:28 AM [facility] Comment:The given reference range is for the fasting state. Non-fasting reference range for glucose is 70 - 180 mg/dL. GFR, Estimated >60 >60 mL/min/1.7 3m2 09/28/2023 8:28 AM [facility] Blood Venipuncture / Unknown 09/28/2023 7:33 AM CDT 09/28/2023 7:55 AM CDT Gordon Lama APRN, CNP LAB_[address] * Folate Only (4Hr Fast Recommended) (09/27/2023 2:03 PM CDT) Folate 11.7 >=7.0 ng/mL 09/29/2023 11:57 AM CDT [facility] Blood Venipuncture / Unknown 09/27/2023 2:03 PM CDT 09/27/2023 2:22 PM CDT Gordon Lama APRN, CNP LAB_1 Performing Organization Address City/[facility]/ZIP Co de Phone Number [facility] [address] * (ABNORMAL) Hgb A1C (09/27/2023 7:17 AM CDT) Hemoglobin A1C 6.6(H) <=5.6 % 09/28/2023 10:59 AM CDT [facility] Estimated Average Glucose (Calc) 143 < 117 mg/dL 09/28/2023 10:59 AM CDT [facility] Comment:Estimated average gl ucose (eAG) converts A1c into glucose units (mg/dL) and estimates average glucose over the past approximately 3 months. The eAG reference interval (<117 mg/dL) corresponds to an A1c of <5.7%. Blood Venipuncture / Unknown 09/27/2023 7:17 AM CDT 09/27/2023 7:24 AM CDT Stanley [facility] - 09/28/2023 10:59 AM CDT For patients not previously diagnosed with diabetes: 5.7-6.4%: Increased risk for diabetes 6.5% and greater: Diagnostic for diabetes For patients diagnosed with diabetes: <8.0%: Goal of therapy for ages 18-75 Clinicians may recommend a higher or lower goal for specific individuals. Gordon Lama APRN, CNP LAB_1 Performing Organization Address [facility] Co de Phone Number [facility] [address] * (ABNORMAL) Vitamin B12 Only (09/27/2023 7:17 AM CDT) Vitamin B12 189(L) 213 - 816 pg/mL 09/28/2023 12:02 PM CDT [facility] Blood Venipuncture / Unknown 09/27/2023 7:17 AM CDT 09/27/2023 7:24 AM CDT Narrative [facility] - 09/28/2023 12:02 PM CDT Borderline low serum Vitamin B12 values may not be diagnositic of B12 deficiency (140 to 209 pg/mL). Consider serum methylmalonic acid and homocysteine levels for confirmation. Serum B12 far below normal indicates deficency (<140 pg/mL). Gordon Lama APRN, CNP LAB_1 Performing Organization Address [facility] de Phone Number [facility] [address] * (ABNORMAL) Iron Profile (Iron,TIBC,%Sat.(Calc)) (09/27/2023 7:17 AM CDT) Iron 29(L) 50 - 170 mcg/dL 09/27/2023 1:52 PM T [facility] Transferrin 247 180 - 382 mg/dL 09/27/2023 1:52 PM T [facility] TIBC, Calculated 309 240 - 450 mcg/dL 09/27/2023 1:52 PM [facility] % Saturation, Calculated 9(L) 10 - 50 % 09/27/2023 1:52 PM T [facility] TIBC Interpretation Low iron, normal TIBC, possible iron deficiency. 09/27/2023 1:52 PM CDT [facility] Blood Venipuncture / Unknown 09/27/2023 7:17 AM CDT 09/27/2023 7:24 AM CDT Gordon Katie Lama REGISTERED NURSE MATERNITY, MANUFACTURING CHIEF ENGINEER LAB_[address] [address], [facility] * (ABNORMAL) Complete Blood Count-W/Diff (09/27/2023 7:17 AM CDT) WBC 4.2 3.5 - 10.5 x10(9)/L 09/27/2023 7:34 AM [facility] RBC 3.89(L) 3.90 - 5.03 x10(12)/L 09/27/2023 7:34 AM [facility] Hemoglobin 9.9(L) 12.0 - 15.5 g/dL 09/27/2023 7:34 AM [facility] HCT 33.4(L) 34.9 - 44.5 % 09/27/2023 7:34 AM [facility] MCV 85.9 80.0 - 100.0 fL 09/27/2023 7:34 AM [facility] MCH 25.4(L) 27.6 - 33.3 pg 09/27/2023 7:34 AM [facility] MCHC 29.6(L) 31.5 - 35.2 g/dL 09/27/2023 7:34 AM [facility] RDW 15.6(H) 11.9 - 15.5 % 09/27/2023 7:34 AM [facility] Platelets 167 150 - 450 x10(9)/L 09/27/2023 7:34 AM [facility] Automated NRBC 0 <=0 /100 WBC 09/27/2023 7:34 AM [facility] Neutrophil Absolute 2.4 1.7 - 7.0 10(9)/L 09/27/2023 7:34 AM [facility] Lymphocyte Absolute 1.1 1.0 - 4.8 10(9)/L 09/27/2023 7:34 AM [facility] Monocyte Absolute 0.4 0.2 - 0.9 10(9)/L 09/27/2023 7:34 AM [facility] Eosinophil Absolute 0.2 0.0 - 0.5 10(9)/L 09/27/2023 7:34 AM [facility] Basophil Absolute 0.0 0.0 - 0.3 10(9)/L 09/27/2023 7:34 AM [facility] Immature Granulocyte % 0.2 0.0 - 0.5 % 09/27/2023 7:34 AM [facility] Blood Venipuncture / Unknown 09/27/2023 7:17 AM CDT 09/27/2023 7:24 AM CDT Filemon Rachel MD LAB_[address] [address], [facility] * (ABNORMAL) Basic Metabolic Panel (09/27/2023 7:17 AM CDT) Sodium 138 136 - 145 mmol/L 09/27/2023 7:57 AM [facility] Potassium 3.8 3.5 - 5.1 mmol/L 09/27/2023 7:57 AM [facility] Chloride 110(H) 98 - 109 mmol/L 09/27/2023 7:57 AM [facility] CO2 21 20 - 29 mmol/L 09/27/2023 7:57 AM [facility] Anion Gap 7 7 - 16 mmol/L 09/27/2023 7:57 AM [facility] Calcium 8.3(L) 8.4 - 10.4 mg/dL 09/27/2023 7:57 AM [facility] BUN 8 7 - 26 mg/dL 09/27/2023 7:57 AM [facility] Creatinine 0.60 0.55 - 1.02 mg/dL 09/27/2023 7:57 AM [facility] Glucose 96 70 - 100 mg/dL 09/27/2023 7:57 AM [facility] Comment:The given reference range is for the fasting state. Non-fasting reference range for glucose is 70 - 180 mg/dL. GFR, Estimated >60 >60 mL/min/1.7 3m2 09/27/2023 7:57 AM [facility] Blood Venipuncture / Unknown 09/27/2023 7:17 AM CDT 09/27/2023 7:24 AM CDT Filemon Rachel MD LAB_1 Performing Organization Address City/[facility]/ZIP Co de Phone Number [address] * Glucose, Whole Blood POCT (09/27/2023 4:27 AM CDT) Glucose, Whole Blood 111 70 - 180 mg/dL 09/27/2023 4:28 AM CDT [facility] POCT Comment 1 MD/RN Notified 09/27/2023 4:28 AM CDT [facility] Performing Location RCLAB C91 09/27/2023 4:28 AM CDT [facility] Blood 09/27/2023 4:27 AM CDT 09/27/2023 4:28 AM CDT Filemon Rachel MD LAB_1 Performing Organization Address [facility] de Phone Number [address] * CT Abd Pelvis W IV Cont (09/26/2023 10:40 PM CDT) Anatomical Region Laterality Modality Abdomen, Pelvis Computed Tomogra phy 09/26/2023 10:4 0 PM CDT Narrative 09/26/2023 10:55 PM CDT EXAM: CT ABD PELVIS W IV CONT LOCATION: [facility] DATE: 09/26/2023 INDICATION: Left-sided abdominal pain, [...] disc disease lumbar spine. Procedure Note Filemon Vaughna MD - 09/26/2023 EXAM: CT ABD PELVIS W IV CONT LOCATION: [facility] DATE: 09/26/2023 INDICATION: Left-sided abdominal pain, [...] CT * Lipase (09/26/2023 9:48 PM CDT) [facility] Lipase 11 8 - 78 U/L 09/26/2023 10:23 PM CDT [facility] Blood Venipuncture / Unknown 09/26/2023 9:48 PM CDT 09/26/2023 9:53 PM CDT Grey Espinosa PA-C LAB_1 [place] [address], [facility] * (ABNORMAL) Liver Panel (Hepatic Function Panel) (09/26/2023 9:48 PM CDT) Pathologist [facility] Alkaline Phosphatase 124 40 - 150 U/L 09/26/2023 10:23 PM CDT [facility] Bilirubin, Total 0.6 0.2 - 1.2 mg/dL 09/26/2023 10:23 PM [facility] Bilirubin, Direct 0.2 0.0 - 0.5 mg/dL 09/26/2023 10:23 PM [facility] AST (SGOT) 14 10 - 40 U/L 09/26/2023 10:23 PM [facility] ALT (SGPT) 11 <=55 U/L 09/26/2023 10:23 PM [facility] Protein, Total 6.5 6.4 - 8.3 g/dL 09/26/2023 10:23 PM [facility] Albumin 2.8(L) 3.5 - 5.0 g/dL 09/26/2023 10:23 PM [facility] Blood Venipuncture / Unknown 09/26/2023 9:48 PM CDT 09/26/2023 9:53 PM CDT Grey Espinosa PA-C LAB_1 Performing Organization Address [facility]/State/[facility] Co de Phone Number [address] * (ABNORMAL) Basic Metabolic Panel (09/26/2023 9:48 PM CDT) Sodium 137 136 - 145 mmol/L 09/26/2023 10:23 PM [facility] Potassium 3.8 3.5 - 5.1 mmol/L 09/26/2023 10:23 PM [facility] Chloride 107 98 - 109 mmol/L 09/26/2023 10:23 PM [facility] CO2 20 20 - 29 mmol/L 09/26/2023 10:23 PM [facility] Anion Gap 10 7 - 16 mmol/L 09/26/2023 10:23 PM [facility] Calcium 8.8 8.4 - 10.4 mg/dL 09/26/2023 10:23 PM [facility] BUN 11 7 - 26 mg/dL 09/26/2023 10:23 PM [facility] Creatinine 0.77 0.55 - 1.02 mg/dL 09/26/2023 10:23 PM [facility] Glucose 125(H) 70 - 100 mg/dL 09/26/2023 10:23 PM [facility] Comment:The given reference range is for the fasting state. Non-fasting reference range for glucose is 70 - 180 mg/dL. GFR, Estimated >60 >60 mL/min/1.7 3m2 09/26/2023 10:23 PM [facility] Blood Venipuncture / Unknown 09/26/2023 9:48 PM CDT 09/26/2023 9:53 PM CDT Grey Espinosa PA-C LAB_[id number] [place] [address] * (ABNORMAL) Complete Blood Count no Diff (09/26/2023 9:48 PM CDT) WBC 5.6 3.5 - 10.5 x10(9)/L 09/26/2023 9:58 PM [facility] RBC 4.06 3.90 - 5.03 x10(12)/L 09/26/2023 9:58 PM [facility] Hemoglobin 10.4(L) 12.0 - 15.5 g/dL 09/26/2023 9:58 PM [facility] HCT 34.1(L) 34.9 - 44.5 % 09/26/2023 9:58 PM [facility] MCV 84.0 80.0 - 100.0 fL 09/26/2023 9:58 PM [facility] MCH 25.6(L) 27.6 - 33.3 pg 09/26/2023 9:58 PM [facility] MCHC 30.5(L) 31.5 - 35.2 g/dL 09/26/2023 9:58 PM [facility] RDW 15.6(H) 11.9 - 15.5 % 09/26/2023 9:58 PM [facility] Platelets 165 150 - 450 x10(9)/L 09/26/2023 9:58 PM [facility] Automated NRBC 0 <=0 /100 WBC 09/26/2023 9:58 PM [facility] Blood Venipuncture / Unknown 09/26/2023 9:48 PM CDT 09/26/2023 9:53 PM CDT Grey Espinosa ALEK-C LAB_1 Performing Organization Address [facility] Co de Phone Number [address] * (ABNORMAL) Urine Culture (09/26/2023 9:02 PM CDT) Urine Culture Growth(A) 09/27/2023 5:20 PM CDT [facility] Urine Culture <10,000 CFU/mL Mixed Bacterial Growth 09/27/2023 5:20 PM CDT [facility] Comment: Mixed Bacterial Growth indicates the specimen is likely contaminated at collection with urogenital and/or fecal lou. The presence of organisms at <10,000 cfu/ml in culture, UTI unlikely. Urine URINE SPECIMEN COLLECTION, CLEAN CATCH / Unknown Non-blood Collection / Unknown 09/26/2023 9:02 PM CDT 09/26/2023 9:31 PM CDT [facility]1 Performing Organization Address [facility] [place] de Phone Number [address] * (ABNORMAL) UA Conditional UC: Clean Catch (09/26/2023 9:02 PM CDT) Urine Culture Comment Urinalysis results meet criteria for reflex, culture performed. 09/26/2023 9:39 PM CDT [facility] Urine Color Light-Hood 09/26/2023 9:39 PM T [facility] Urine Clarity Turbid(A) Clear 09/26/2023 9:39 PM T [facility] Specific [place], Urine 1.020 <1.030 09/26/2023 9:39 PM T [facility] PH Urine 6.0 5.0 - 8.0 09/26/2023 9:39 PM T [facility] Protein, Urine Qual (mg/dL) 100(A) Negative, 10 , 20 09/26/2023 9:39 PM [facility] Glucose Urine Qual (mg/dL) Normal (Negative) Normal (Negative), 30 , 50 09/26/2023 9:39 PM T [facility] Ketones, Urine (mg/dL) Negative Negative, Trace 09/26/2023 9:39 PM [facility] Urobilinogen, Urine (EU/dL) Normal (Negative) Normal (Negative) 09/26/2023 9:39 PM [facility] Bilirubin Urine (mg/dL) Negative Negative 09/26/2023 9:39 PM [facility] Blood, Urine (mg/dL) OVER (>1.0, Large)(A) Negative, 0.03 (Trace) 09/26/2023 9:39 PM [facility] Nitrite Urine Negative Negative 09/26/2023 9:39 PM [facility] Leukocyte Esterase, Urine (Ant/uL) 500 (Large)(A) Negative, 25 (Trace) 09/26/2023 9:39 PM [facility] Red Blood Cells >180(H) 0 - 3 /HPF 09/26/2023 9:39 PM [facility] White Blood Cells 116(H) 0 - 5 /HPF 09/26/2023 9:39 PM [facility] Squamous Epithelial Cells Occasional None Seen, Occasional, Few /HPF 09/26/2023 9:39 PM [facility] Mucus Present(A) None Seen /HPF 09/26/2023 9:39 PM [facility] Urine Source Clean Catch 09/26/2023 9:39 PM [facility] Urine URINE SPECIMEN COLLECTION, CLEAN CATCH / Unknown Non-blood Collection / Unknown 09/26/2023 9:02 PM CDT 09/26/2023 9:07 PM [facility] - 09/26/2023 9:39 PM CD The qualitative interpretive guidance provided (e.g., small, moderate, large) is intended to aid in quantitative result interpretation. It is not itself an FDA-cleared test result. Grey Espinosa PA-C [id number] [address], [facility] documented in this encounter [...] Coronary atherosclerosis of unspecified type of vessel, [place] or graft Essential hypertension (HRC) Unspecified essential hypertension Left ureteral stone Left ureteral stone * Plan of Care - Enedina Martin RN - 09/30/2023 12:10 PM CDT [facility] Discharge Note - Nursing Admission [...] Castillo LSW - 09/30/2023 11:36 AM CDT [facility] Care Management Screening Insurance Coverage: Payor: [facility] / Plan: [facility] / Product Type: Medicaid / Primary [...] place return call to patient's [facility] MYCHAL Stern PH: [phone]. SW able to leave a message to Leena regarding patient's admission date and discharge of today. Please consult if additional needsdo arise. BIBIANA Peterson * Plan of Care - Natalia Solis RN - 09/30/2023 2:51 AM CDT Pt alert, awake and oriented x3. Disoriented to situation. Communicated via iPad skin former. Reoriented as needed. Explained POC. Denies pain, SOB and N/V/D. IV LR infusing at 75 ml/hr. Up to the BRwith A1, GB and walker. * Plan of Care - Oliver Evans RN - 09/29/2023 10:56 PM CDT [facility] Plan of Care Note Pt is alert and oriented with some confusion to time noted. Pt is calm and cooperative with cares. Son present for communication and ipad skin former used after family left. Pt reported pain and received PRN tylenol. PRN was effective. Denies N/V, SOB. IV LR infusing at 75 ml/hr. Pt went for surgery this shift and post-op vitals obtained. VS stable on RA. Call light and alarms in place for safety. --- End of Report ---[facility]. Practitioner Notified Note Name of Practitioner [...] Auguste RN - 09/29/2023 1:40 PM CDT [id number] skin former used for assessment/cares. Pt A&Ox3, disoriented to [...] Sebastian RN - 09/29/2023 6:18 AM CDT [employer] utilized w/ encounters. Patient A/O x3. VSS [...] on. Pt is Hmong speaking and requires skin former. * Plan of Care - Brea Muir - 09/28/2023 2:21 PM CDT Patient is A&O x3, disoriented to time. Needs ong skin former. Heart rate is cecilia in the 50's, [...] alarm on for safety. 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 documented in this encounter Administered Medications [...] (SUBLIMAZE) injection 25-50 mcg 25-50 mcg, Intravenous, [id number], Pain, Starting on Wed09/29/23 at 1925, Until [...] (NORMODYNE) injection 5 mg 5 mg, Intravenous, [id number], Blood Pressure >, Starting on Wed09/29/23 at [...] in Manage Orders - Provider: Inpatient Template [facility]) cyanocobalamin (VITAMIN B12) tablet 1,000 mcg [...] (SUBLIMAZE) injection 25-50 mcg 25-50 mcg, Intravenous, [id number], Pain, Starting on Wed09/29/23 at 1925, Until [...] (NORMODYNE) injection 5 mg 5 mg, Intravenous, [id number], Blood Pressure >, Starting on Wed09/29/23 at [...] Practitioner. documented in this encounter Care Teams Back End Developer Relationship Specialty Start Date End Date No Primary/Referring, Phy PCP - General 08/26/23 documented as of this encounter
--- OUTSIDE RECORDS SUMMARY | 2023-12-26 08:23 | XMS_ITS | Clinical Summary ---
Author Organization [facility] Address [place], [place] [address] Care Team Providers Care Board Mixer Tender Name Role Phone John San MD Primary Care Provider [phone] Allergies No known active allergies Medications Medication Sig Dispensed Refills Start Date End Date Status nitroglycerin (NITROSTAT) 0.[address] 0.4 mg under the tongue every 5 minutes if needed for Chest Pain. 4 7 12/24/19 24 Discontinued( Pharmacist change per medication history (E-cancel not sent)) aspirin (ECOTRIN) 81 mg enteric coated tablet 4 7 12/24/19 24 Discontinued( Pharmacist change per medication history (E-cancel not sent)) furosemide (LASIX) 20 mg tablet Take 1 tablet by mouth every morning. 0 0 Suspended metoprolol succinate (TOPROL XL) 25 mg Sustained-Release tablet Take 12.5 mg by mouth two times daily. 12/24/19 24 Discontinued( Pharmacist change per medication history (E-cancel not sent)) pantoprazole (PROTONIX) 40 mg delayed-release tablet Take 40 mg by mouth once daily. 12/24/19 24 Discontinued( Pharmacist change per medication history (E-cancel not sent)) methyl salicylate-menthol (LALITHA MARINO; MENTHOLATUM DEEP HEAT) 15-10 % topical cream Apply topically to affected area(s) 3 times daily if needed (Applies to neck, legs, hands, arms). 12/24/19 24 Discontinued( Pharmacist change per medication history (E-cancel not sent)) acetaminophen (TYLENOL) 325 mg tablet Take 650 mg by mouth every 4 hours if needed for Pain. Max acetaminophen dose: 4000mg in 24 hrs. 12/24/19 24 Discontinued( Pharmacist change per medication history (E-cancel not sent)) clopidogreL (PLAVIX) 75 mg tabletIndications: NSTEMI (non-ST elevated myocardial infarction) (HC) Take 1 Tablet (75 mg) by mouth once daily. Take for 1 year or otherwise directed by your bioinformatics analyst 30 Tablet 3 Suspended Additional Information evolocumab (Repatha SureClick) 140 mg/mL subcutaneous pen injectorIndication s:Hyperlipidemia, unspecified hyperlipidemia type Inject 1 mL (140 mg) subcutaneous every 2 weeks. Inject into abdomen, thigh, or upper arm; rotate injection sites. 6 mL 3 12/24/19 24 Discontinued( Pharmacist change per medication history (E-cancel not sent)) rosuvastatin (Crestor) 10 mg tablet Take 10 mg by mouth at bedtime. 12/24/19 24 Discontinued( Pharmacist change per medication history (E-cancel not sent)) lisinopriL (PRINIVIL; ZESTRIL) 2.5 mg tablet Take 2.5 mg by mouth once daily. Suspended metoprolol succinate SR (TOPROL XL) 12.5 mg as half tablet Take 12.5 mg by mouth once daily. Suspended Active Problems Problem Noted Date Diagnosed Date Nephrolithiasis 12/24/2023 UTI (urinary tract infection) 12/24/2023 Chronic anemia 12/24/2023 Thrombocytopenia 12/24/2023 Bacteremia 12/24/2023 Abnormal cardiovascular stress test 05/07/2020 Chronic heart [...] vein harvest (left leg) per Dr. Lino Hyperglycemia post MA 02/06/2010 CAD sp NSTEMI (non-ST elevated myocardial infarc tion) 02/05/2010 Overview: - 02/05/10 presented to [facility] ED with severe SOTO, developed chest pain, EKG showed anterolateral ST/T changes, and high troponins, transferred to [facility] 02/05/10 for further evaluation - 02/05/10 Angio: [...] Date Resolved Date Chest pain, unspecified 05/28/2010 1206/2009 Postoperative anemia due to acute blood loss 0 03/18/2010 UTI (lower urinary tract infection) 02/06/2010 02/18/2010 Cholecystitis with cholelithiasis 02/05/2010 02/18/2010 Migraine 02/05/2010 02/18/2010 Impacted cerumen 10/06/2007 02/18/2010 Encounters Date Type Department Care Team Description 12/26/2023 Travel 12/24/2023 2:30 PM CDT - 12/24/2023 3:51 PM CDT Surgery [facility] [address] [place] [address] Chriss Stock MD CYSTOSCOPY LEFT RETROGRADE LEFT STENT PLACEMENT 12/24/2023 2:08 PM CDT Anesthesia Event [facility] [address] [place] [address] Aneesh Mora MD Kushins, Stephen Isaac, MD 12/24/2023 1:45 AM CDT - Present Hospital Encounter [facility] [address] [place] [address] [facility] [place], [facility] Oswald Bhatt MD Brandt, David Fredrick, MD from Last 3 Months Immunizations Name Administration Dates Next Due Influenza, [...] of Communication with Friends and Fami ly 0 12/26/2023 Financial Resource Strain Answer Date R ecorded Difficulty of Paying Living Expenses 3 12/26/2023 Difficulty of Paying Living Expenses Not on file 12/26/2023 Food Insecurity Answer Date Recorded Worried About Running Out of Food in the Last Ye ar 1 12/26/2023 Transportation Needs Answer Date Record ed Lack of Transportation (Medical) 1 12/26/2023 Housing Stability Answer Date Recorded Unable to Pay for Housing in the Last Year 1 12/26/2023 Sex and Gender Information Value Date Recorded Sex Assigned at Not on file Gender Identity Not on file Sexual Orientation Not on file Obstetrics History Last Filed Vital Signs Vital Sign Reading Time Taken Comments Blood Pressure 112/56 12/26/2023 12:33 AM CDT Pulse 67 12/26/2023 12:33 AM CDT Temperature 36.7 ??C (98 ??F) 12/26/2023 12: 33 AM CDT Respiratory Rate 16 12/26/2023 12:3 3 AM CDT Oxygen Saturation 95% 12/26/2023 12: 33 AM CDT Inhaled Oxygen Concentration - - Weight 60.3 kg (132 lb 14.4 oz) 12/26/2023 5:12 AM CDT Height 139.7 cm (4' 7) 11/12/2022 10:4 5 AM CDT Body Mass Index 30.89 11/12/2022 10:45 AM CDT Plan of Treatment [...] age 18+ 04/17/2021 1 COVID-19 vaccine series ( season) 2023 08/31/2020, 08/10/2020 Influenza for age 65+ 02/27/2024 03/18/2010 Medical Devices Implanted Type Area Computer Security Coordinator Device Identifier Shelf Expiration Date Model / Serial / Lot Iol Dickinson +24.5 Tecnis [id number] - [id number] Implanted:Qty: 1 on 08/25/2017 by Chidi Hadley MD at [facility] Left: Eye [employer] 06/11/2021 [id number]# / [id number] / Iol Dickinson +24.5 [employer]ecnis Zcb00 - [id number] Implanted:Qty: 1 on 2017 by Chidi Hadley MD at [facility] Right: Eye [employer] 05/31/2021 ZCB00# / [id number] / 6x22 Soft Percuflex Contour Ureteral Catheter Implanted:Qty: 1 on 12/24/2023 by Chriss Stock MD at [facility] 09/02/2026 / / [id number] Procedures The patient is currently admitted. The information in this section might not be complete until the patient is discharged. Procedure Name Priority Date/Time Associated Diagnosis Comments CBC W PLT NO DIFF Early AM 12/26/2023 7:2 0 AM CDT BASIC METABOLIC PANEL Early AM 12/26/2023 7:20 AM CDT ECHO TTE COMPLETE WO CONTRAST LINDA 12/25/2023 11:11 AM CDT XR RETROGRADE PYELOGRAM W/WO KUB Routine 12/24/2023 2:52 PM CDT SUPRAGLOTTIC-LMA Routine 12/24/2023 2:21 PM CDT SCAN CORRESP-EKG RESULTS 12/24/2023 10:21 AM CDT SCAN CORRESP-IMAGING 12/24/2023 10:21 AM CDT XR CHEST 1 VIEW PORTABLE STAT 12/24/2023 9:12 AM CDT CBC W PLT NO DIFF Early AM 12/24/2023 7:0 0 AM CDT BASIC METABOLIC PANEL Early AM 12/24/2023 7:00 AM CDT from Last 3 Months Results * (ABNORMAL) CBC no diff AM (12/26/2023 7:20 AM CDT) Only the most recent of2 resultswithin the time period is included. WHITE BLOOD COUNT 9.7 4.5 - 11.0 thou/cu mm 12/26/2023 7:56 AM CDT [facility] RED BLOOD COUNT 4.24 4.00 - 5.20 mil/cu mm 12/26/2023 7:56 AM CDT [facility] HEMOGLOBIN 11.1(L) 12.0 - 16.0 g/dL 12/26/2023 7:56 AM CDT [facility] HEMATOCRIT 36.8 33.0 - 51.0 % 12/26/2023 7:56 AM CDT [facility] MCV 87 80 - 100 fL 12/26/2023 7:56 AM CDT [facility] MCH 26.2 26.0 - 34.0 pg 12/26/2023 7:56 AM CDT [facility] MCHC 30.2(L) 32.0 - 36.0 g/dL 12/26/2023 7:56 AM CDT [facility] RDW 16.0(H) 11.5 - 15.5 % 12/26/2023 7:56 AM CDT [facility] PLATELET COUNT 142 140 - 440 thou/cu mm 12/26/2023 7:56 AM CDT [facility] MPV 10.5 6.5 - 11.0 fL 12/26/2023 7:56 AM CDT [facility] NRBC 0.0 % 12/26/2023 7:56 AM CDT [facility] ABS NRBC 0.0 thou /cu mm 12/26/2023 7:56 AM CDT [facility] Blood BLOOD SPECIMEN / Unknown Butterfly / Unknown 12/26/2023 7:20 AM CDT 12/26/2023 7:41 AM CDT Jose Luis Jackson MD HEMATOLOGY [facility] [address] [place] [address], * (ABNORMAL) Basic metabolic panel AM (12/26/2023 7:20 AM CDT) Only the most recent of2 resultswithin the time period is included. SODIUM 140 136 - 145 mmol/L 12/26/2023 8:15 AM CDT [facility] POTASSIUM 4.0 3.5 - 5.1 mmol/L 12/26/2023 8:15 AM CDT [facility] CHLORIDE 106 98 - 107 mmol/L 12/26/2023 8:15 AM T [facility] CO2,TOTAL 26 22 - 29 mmol/L 12/26/2023 8:15 AM T [facility] ANION GAP 8 5 - 18 12/26/2023 8:15 AM T [facility] GLUCOSE 116(H) 70 - 99 mg/dL 12/26/2023 8:15 AM T [facility] CALCIUM 8.7(L) 8.8 - 10.2 mg/dL 12/26/2023 8:15 AM CDT [facility] BUN 17 8 - 23 mg/dL 12/26/2023 8:15 AM CDT [facility] CREATININE 0.78 0.50 - 0.90 mg/dL 12/26/2023 8:15 AM CDT [facility] BUN/CREAT RATIO 22(H) 10 - 20 8:15 AM CDT [facility] eGFR 77(L) >90 mL/min/1.7 3m2 12/26/2023 8:15 AM CDT [facility] Comment:As of 2021, eG FR is calculated by the CKD-EPI creatinine equation without race adjustment. ??eGFR can be influenced by muscle mass, exercise, and diet. ??The reported eGFR is an estimation only and is only applicable if the renal function is stable. Blood BLOOD SPECIMEN / Unknown Butterfly / Unknown 12/26/2023 7:20 AM CDT 12/26/2023 7:41 AM CDT Jose Luis Jackson MD [facility] [address] [place] [address], * ECHO TTE COMPLETE WO CONTRAST (12/25/2023 11:11 AM CDT) AORTIC VALVE MEAN PG 8 mmHg EJECTION FRACTION 66 % PEAK TR VELOCITY 2.8 m/s LVEDD 4.7 cm MITRAL VALVE MR ERO 33 mm2 Anatomical Region Laterality Modality Ultrasound 12/25/2023 7:22 AM CDT Narrative 12/25/2023 11:19 AM CDT ECHOCARDIOGRAM PILAR MESSINA ? Accession#: ?? [id number] : ?1945 78 years Study Date: ?? 12/25/2023 7:22:49 AM Gender: F ?BP: ? 100/55 mmHg Height: 139.00 cm ?BSA: ?1.46 m? ? ? Weight: 60.00 kg ? Tech: ? MH ? Referring MD: JOSE LUIS JACKSON Site: ? [facility] Reading Location: [facility] Patient Location: Inpatient. Procedure: 2D, Color Doppler and Spectral Doppler. Indication for study: history of MR, preop Cardiac Rhythm: Normal sinus.Study quality: Fair. Final Impressions: 1. Normal left ventricular size, moderately increased wall thickness, normal global systolic function, calculated EF of 66 %. 2. Severely enlarged left and right atria. 3. Right ventricular cavity size is mildly enlarged, global systolic RV function is mildly reduced. 4. The mitral valve is sclerotic, mild to moderate mitral regurgitation. 5. Tricuspid valve is non coapting. Severe tricuspid regurgitation. 6. Thickened pulmonic valve. Moderate pulumonary regurgitation. 7. The ascending aorta is mildly dilated with a maximal diameter of 3.9 cm. Chamber Sizes and Function Normal left ventricular size, moderately increased wall thickness, normal global systolic function, calculated EF of 66 %. No definite resting regional wall motion abnormality seen. Left atrial size is severely enlarged. Right ventricular cavity size is mildly enlarged, global systolic RV function is mildly reduced. The right atrium is severely enlarged. Right atrial pressure is moderately elevated. Right atrial volume index is 46 ml/m? ? ?. The pulmonary artery is of normal size and origin. The sinus of Valsalva is normal sized. The ascending aorta is dilated. Valves, RV Pressures and Diastolic Function The aortic valve is trileaflet, no stenosis and no regurgitation. The mitral valve is sclerotic, mild to moderate mitral regurgitation. Moderate mitral annular calcification is present. Indeterminate pattern of LV diastolic filling. The tricuspid valve is fails to coapt. Tricuspid regurgitation is severe. The tricuspid regurgitant velocity is 2.8 m/s, the estimated right ventricular systolic pressure is 32 mmHg plus right atrial pressure. There is mildly increased estimated pulmonary pressure by tricuspid regurgitation velocity and right atrial pressure. The pulmonic valve is thickened with good excursion. Moderate pulmonary regurgitation. Pulmonary veins show a normal flow pattern. Masses, Effusion, Shunts There is no pericardial effusion. The inferior vena cava is dilated, respiratory size variation greater than 50%. No left to right shunting was detected by limited color flow Doppler interrogation of the interatrial septum. The ratio of pulmonic flow to systemic flow (Qp/Qs ratio) is 1.97. MEASUREMENTS AND CALCULATIONS 2-D Measurements and LV Function: LVID (d) 4.7 cm Planimetered EF 66 % LVID (s) 2.9 cm LV FS% (2D) ? 38 % IVS (d) ??1.4 cm LVOT diameter ?? 1.8 cm LVPW (d) 0.8 cm HR ?62 bpm Ao Sinus 2.9 cm LA Vol index ?71 ml/m2 Asc Ao ?? 3.9 cm RA Vol index ?46 ml/m2 LA ? 4.9 cm Diastology: Mitral ?Tissue Doppler ?Pulmonary veins E Peak 0.8 m/s ??e', Septum ? 0.05 m/s Pulm s ?44.1 cm/s A Peak 0.6 m/s ??e', Lateral ?0.11 m/s Pulm d ?36.4 cm/s E/A ?1.2 ?E/e' Average ?? 9.90 ? Pulm s/d ratio ??1.21 DT ? 204 msec IVRT ?? 113 msec Aortic Valve: Vmax ? 1.8 m/s ??CRUZ (V) ?? 1.59 cm? ? ? VTI ?0.40 m ?? CRUZ (I) ?? 1.60 cm? ? ? LVOT V max 1.1 m/s ??Max PG ?13 mmHg LVOT VTI ?? 0.25 m ?? Mean PG ?? 8 mmHg SV ? 64 ml ?Dim Index 0.63 SV index ?? 44 ml/m? ? ? CO ?4.0 l/min ?CI ?2.7 l/min/m? ? ? Mitral Valve: MVA ? 3.7 cm? ? ? MR ERO 0.33 cm? ? ? MV P 1/2 ??59 msec MV Mean G 1 mmHg Tricuspid Valve and estimated PA pressures: TR Vmax 2.8 m/s TV Mean G 1 mmHg TR maxG 32 mmHg TV E VMax 0.5 m/s ?TAPSE ? 1.6 cm Pulmonic Valve: PV Vmax ??0.9 m/s PV meanG 2 mmHg PV VTI ?? 0.19 m PV AT ?58 msec Shunt: Qp/Qs: 2.0 . This study was interpreted by an [facility] accredited facility. ??Final ?? Procedure Note Abram Holt MD - 12/25/2023 ECHOCARDIOGRAM PILAR MESSINA : 1945 78 years Study Date: 12/25/2023 7:22:49 AM Gender: F BP: 100/55 mmHg Height: 139.00 cm BSA: 1.46 m? ? ? Weight: 60.00 kg Tech: Referring MD: JOSE LUIS JACKSON Site: [facility] Reading Location: [facility] Patient Location: Inpatient. Procedure: 2D, Color Doppler and Spectral Doppler. Indication for study: history of MR, preop Cardiac Rhythm: Normal sinus.Study quality: Fair. Final Impressions: 1. Normal left ventricular size, moderately increased wall thickness,normal global systolic function, calculated EF of 66 %. 2. Severely enlarged left and right atria. 3. Right ventricular cavity size is mildly enlarged, global systolic RVfunction is mildly reduced. 4. The mitral valve is sclerotic, mild to moderate mitralregurgitation. 5. Tricuspid valve is non coapting. Severe tricuspid regurgitation. 6. Thickened pulmonic valve. Moderate pulumonary regurgitation. 7. The ascending aorta is mildly dilated with a maximal diameter of 3.9cm. Chamber Sizes and Function Normal left ventricular size, moderately increased wall thickness, normalglobal systolic function, calculated EF of 66 %. No definite restingregional wall motion abnormality seen. Left atrial size is severelyenlarged. Right ventricular cavity size is mildly enlarged, globalsystolic RV function is mildly reduced. The right atrium is severelyenlarged. Right atrial pressure is moderately elevated. Right atrialvolume index is 46 ml/m? ? ?. The pulmonary artery is of normal size andorigin. The sinus of Valsalva is normal sized. The ascending aorta isdilated. Valves, RV Pressures and Diastolic Function The aortic valve is trileaflet, no stenosis and no regurgitation. Themitral valve is sclerotic, mild to moderate mitral regurgitation. Moderatemitral annular calcification is present. Indeterminate pattern of LVdiastolic filling. The tricuspid valve is fails to coapt. Tricuspidregurgitation is severe. The tricuspid regurgitant velocity is 2.8 m/s,the estimated right ventricular systolic pressure is 32 mmHg plus rightatrial pressure. There is mildly increased estimated pulmonary pressure bytricuspid regurgitation velocity and right atrial pressure. The pulmonicvalve is thickened with good excursion. Moderate pulmonary regurgitation.Pulmonary veins show a normal flow pattern. Masses, Effusion, Shunts There is no pericardial effusion. The inferior vena cava is dilated,respiratory size variation greater than 50%. No left to right shunting wasdetected by limited color flow Doppler interrogation of the interatrialseptum. The ratio of pulmonic flow to systemic flow (Qp/Qs ratio) is1.97. MEASUREMENTS AND CALCULATIONS 2-D Measurements and LV Function: LVID (d) 4.7 cm Planimetered EF 66 % LVID (s) 2.9 cm LV FS% (2D) 38 % IVS (d) 1.4 cm LVOT diameter 1.8 cm LVPW (d) 0.8 cm HR 62 bpm Ao Sinus 2.9 cm LA Vol index 71 ml/m2 Asc Ao 3.9 cm RA Vol index 46 ml/m2 LA 4.9 cm Diastology: Mitral Tissue Doppler Pulmonary veins E Peak 0.8 m/s e', Septum 0.05 m/s Pulm s 44.1 cm/s A Peak 0.6 m/s e', Lateral 0.11 m/s Pulm d 36.4 cm/s E/A 1.2 E/e' Average 9.90 Pulm s/d ratio 1.21 DT 204 msec IVRT 113 msec Aortic Valve: Vmax 1.8 m/s CRUZ (V) 1.59 cm? ? ? VTI 0.40 m CRUZ (I) 1.60 cm? ? ? LVOT V max 1.1 m/s Max PG 13 mmHg LVOT VTI 0.25 m Mean PG 8 mmHg SV 64 ml Dim Index 0.63 SV index 44 ml/m? ? ? CO 4.0 l/min CI 2.7 l/min/m? ? ? Mitral Valve: MVA 3.7 cm? ? ? MR ERO 0.33 cm? ? ? MV P 1/2 59 msec MV Mean G 1 mmHg Tricuspid Valve and estimated PA pressures: TR Vmax 2.8 m/s TV Mean G 1 mmHg TR maxG 32 mmHg TV E VMax 0.5 m/s TAPSE 1.6 cm Pulmonic Valve: PV Vmax 0.9 m/s PV meanG 2 mmHg PV VTI 0.19 m PV AT 58 msec Shunt: Qp/Qs: 2.0 . This study was interpreted by an [facility] accredited facility. Final Jose Luis Jackson MD ECHO ORD * XR RETROGRADE PYELOGRAM W/WO KUB (12/24/2023 2:52 PM CDT) Anatomical Region Laterality Modality KIDNEYS, Abdomen Digital Radiogr aphy Narrative 12/24/2023 2:23 PM CDT 12 seconds fluoroscopy time was provided. ??See operative/procedure report for further information. Chriss Stock MD GENERAL IMAGING * HCHG MASK PR5 (12/24/2023 2:21 PM CDT) Narrative Jeannine Pelayo CRNA - 12/24/2023 2:21 PM CDT Jeannine Pelayo CRNA ? 12/24/2023 ??2:22 PM Procedure: Supraglottic Patient location during procedure: OR Supraglottic Airway Properties Mask Ventilation: easy Type: unique Tube Size: 4 Insertion Attempts: 1 Placement Verification: auscultation and CO2 detection Assessment Assessment: atraumatic and dentition unchanged Aneesh Mora MD ANESTHESIA PX NOTE O RDERABLES * SCAN CORRESP-EKG RESULTS (12/24/2023 10:21 AM CDT) Narrative 12/24/2023 10:21 AM CDT Ordered by an unspecified provider. Other Clinical Staff OTHER * SCAN CORRESP-IMAGING (12/24/2023 10:21 AM CDT) Anatomical Region Laterality Modality Other Narrative 12/24/2023 10:21 AM CDT Ordered by an unspecified provider. Other Clinical Staff OTHER * XR CHEST 1 VIEW PORTABLE (12/24/2023 9:12 AM CDT) Anatomical Region Laterality Modality HEART, THORAX, CHEST Digital Rad iography 12/24/2023 9:23 AM CDT Impressions 12/24/2023 9:23 AM CDT 1. Lungs low in volume with crowded markings in the bases. No obvious acute infiltrate. 2. Borderline cardiomegaly. 3. Post coronary bypass, as before. Dictated by Edmond Palacios MD @ Dec 24 2023 ??9:23AM (Electronically Signed) [email or web address] Narrative 12/24/2023 9:23 AM CDT For Patients: ??As a result of the Cures Act, medical imaging exams and procedure reports are released immediately into your electronic medical record. ??You may view this report before your referring provider. ??If you have questions, please contact your health care provider. INDICATION: SOB TECHNIQUE: Semi upright portable AP image of the chest. COMPARISON: 05/30/2014 FINDINGS: Lungs low in volume with crowded markings in the bases. No obvious infiltrate. No pleural effusion. Borderline cardiomegaly. Pulmonary veins grossly normal in caliber. Postop changes of coronary bypass, as before. No significant osseous abnormality. Procedure Note Edmond Palacios MD - 12/24/2023 For Patients: As a result of the Cures Act, medical imagingexams and procedure reports are released immediately into your electronicmedical record. You may view this report before your referring provider.If you have questions, please contact your health care provider. INDICATION: SOB TECHNIQUE: Semi upright portable AP image of the chest. COMPARISON: 05/30/2014 FINDINGS: Lungs low in volume with crowded markings in the bases. No obviousinfiltrate. No pleural effusion. Borderline cardiomegaly. Pulmonary veinsgrossly normal in caliber. Postop changes of coronary bypass, as before.No significant osseous abnormality. IMPRESSION: 1. Lungs low in volume with crowded markings in the bases. No obviousacute infiltrate. 2. Borderline cardiomegaly. 3. Post coronary bypass, as before. Dictated by Edmond Palacios MD @ Dec 24 2023 9:23AM (Electronically Signed) [email or web address] Jose Luis Jackson MD GENERAL IMAGING from Last 3 Months Advance Directives * Full Code (Latest Code Status on File) Date Activated Date Inactivated Comments 12/24/2023 2:29 AM Question Answer Comments Code Status Discussion: Reviewed Preferences * Full Code Date Activated Date Inactivated Comments 11/12/2022 2:51 [...] Comments 2017 1:32 PM 2017 6:01 PM Care Teams Board Mixer Tender Relationship Specialty Start Date End Date John San MD [address] [place] [address] PCP - General Family Practice 11/12/22
--- OUTSIDE RECORDS SUMMARY | 2023-12-26 08:23 | XMS_ITS | Encounter Summary ---
Author Organization [facility] Address [address] [place] [address] Care Team Providers Care Health And Safety Tech Name Role Phone No Primary/Referring, Phy Primary Care Provider Unavailable Encounter Details Date Type Department Care Team (Late st Contact Info) Description 09/27/2023 Telephone [facility] [address] [facility] [place], [place] [id number] Jenna Fermin PA-C [address] [place] [address] Social History Tobacco Use Types Packs/Day Years Used Date Smoking Tobacco: Never Assessed [facility] Utilities Answer Date Recorded In the past 12 months has [facility] electric, gas, oil, or water [employer] threatened to shut off services in your [...] on filedocumented in this encounter Care Teams Health And Safety Tech Relationship Specialty Start Date End Date No Primary/Referring, Phy PCP - General 08/26/23 documented as of this encounter
--- OUTSIDE RECORDS SUMMARY | 2023-12-26 08:23 | XMS_ITS | Encounter Summary ---
Author Organization [facility] Address [address] [place] [address] Care Team Providers Care Car Supplier Name Role Phone No Primary/Referring, Phy Primary Care Provider Unavailable Reason for Referral * Consult/Transfer Care (Routine) - New Request Specialty Diagnoses / Procedures Referred By Alfonso t Referred To Contact Diagnoses Urinary tract infection with hematuria, site unspecified Left ureteral stone Hydronephrosis of left kidney Complicated UTI (urinary tract infection) Simran Kunz APRN, CNP [address] [place] [id number] Referral ID Status Reason Start Date Expiration Date V isits Requested Visits Authorized [id number] New Request 09/30/2023 12/29/2023 1 1 Scheduling Instructions Your clinician has recommended an appointment with [facility] for your ongoing patient care. You can quickly make your appointment online at WeMonitor/[email or web address]. You can also call [phone] for help scheduling your appointment. We suggest [...] 1-1.5 Hours Simran Kunz APRN, CNP [address] [place] [id number] Referral ID Status Reason Start Date Expiration Date V isits Requested Visits Authorized [id number] Incomplete 09/29/2023 12/28/2024 1 1 * Procedure/Equipment (Routine) - Incomplete Specialty Diagnoses / Procedures Referred By Contac t Referred To Contact Procedures CT Abd Pelvis W IV Grey Cornejo PA-C [address] [place] [id number] Referral ID Status Reason Start Date Expiration Date V isits Requested Visits Authorized [id number] Incomplete 09/26/2023 12/25/2024 1 1 Reason for [...] Expiration Date Visits Re quested Visits Authorized [id number] 1 1 Encounter Details Date Type Department Care Team (Late st Contact Info) Description 09/26/2023 7:33 PM CDT - 09/30/2023 2:15 PM CDT Hospital Encounter RH C[address] [place] [phone] Edilma Sandy MD [address] [place] [address] Filemon Rachel MD [address] [place] [phone] Robert Martin MD [address] [place] [address] Ramona Angel PA-C [address] [place] [address] Gordon Lama APRN, RICARDO [address] [place] [address] [place] [address] Simran Kunz, MAIL DELIVERY SUPERVISOR, COUNTRY SINGER [address] [place] [address] Left ureteral stone (Primary Dx); Left flank pain; Urinary tract infection with hematuria, site unspecified; Renal stones; Pain; Hydronephrosis of left kidney; Complicated UTI (urinary tract infection); Hematuria syndrome; Hydronephrosis with renal and ureteral calculus obstruction Discharge Disposition: Home Social History Tobacco Use Types Packs/Day Years Used Date Smoking Tobacco: Never Assessed [facility] Utilities Answer Date Recorded In the past 12 months has th e Sequ[employer], gas, oil, or water [employer] threatened to shut off services in your [...] place to sleep or slept in a senior care (including now)? No 09/27/2023 Sex and Gender [...] encounter Discharge Summaries * Simran Kunz, SHAYNE, COUNTRY SINGER - 09/30/2023 11:54 AM CDT [facility] Medicine Discharge Summary Patient ID: Pilar Messina [id number] 78 y.o. 1945 Admit date: 09/26/2023 Discharge [...] Her son by the bedsideinterpreting, declines professional taffy candy maker. Reports pain is similar to prior ureteral colic, not resolved completely since her discharge. She was supposed to follow with urology 2-4 weeks after stent was placed but this has not happened yet. She reports her pain was worse over the last 1 week so they went to outside hospital at [place] and she was prescribed oral antibiotics and [...] 04 at 10 am. - Discussed with [facility] taffy candy maker discharge instructions and with family Acute on [...] Your Medications These medications were sent to [facility] [address] [place] [id number] Hours: Open 24x7 acetaminophen 325 MG tablet [...] Sheppard PA-C [facility] [id number] Significant Diagnostic Studies (imaging, labs, micro, etc), [...] 35 minutes including, but not limited to, [id number] time spent reviewing records, counseling, and coordination of care. Simran Kunz APRN, RICARDO [facility] documented in this encounter Discharge [...] and exam is facilitated by the professional [facility] taffy candy maker, via iPad Language Line, to assist in [...] CABG 2009, s/p CRYSTAL x4, 10/2022: Hold COMPENSATION CONSULTANT Plavix for upcoming procedure, continue ASA and [...] Care: Full Simran Kunz APRN, CNP Hospitalist, [facility] * Antonina Potts PA-C - [...] with any questions. Antonina Potts PA-C [facility] 09/29/23 8:05 AM * Millie Morales PA-C [...] CABG 2009, s/p CRYSTAL x4, 10/2022: Hold COMPENSATION CONSULTANT Plavix for upcoming procedure, continue ASA and [...] Care: Full Simran Kunz APRN, CNP Hospitalist, [facility] * Gordon Lama [...] CABG 2009, s/p CRYSTAL x4, 10/2022: Hold COMPENSATION CONSULTANT Plavix for upcoming procedure, continue ASA and [...] Full Gordon Lama APRN, DI Hospitalist, [facility] Pager: [phone] documented in this encounter Procedure Notes * Jose Gee MD - 09/30/2023 12:00 AM CDT NAME: PILAR MESSINA CSN: [id number] OPERATIVE REPORT DATE OF SURGERY: 09/29/2023 : 1945 SURGEON: JOSE GEE MD PREOPERATIVE DIAGNOSES: 1. Previous stenting for a left obstructing ureteral stone. 2. Recent admission for sepsis and urinary tract infection. POSTOPERATIVE DIAGNOSES: 1. Previous stenting for a left obstructing ureteral stone. 2. Recent admission for sepsis and urinary tract infection. OPERATION PERFORMED: Left ureteroscopy with laser lithotripsy and stent replacement. STAFFING CLERK: None. ANESTHESIA: General endotracheal. ESTIMATED BLOOD LOSS: [...] case was begun by inserting a 22- Azeri rigid cystoscope into the bladder under direct [...] week for stent removal. MD ALEKSEY TANNER/SABIHA /[id number] documented in this encounter Consult Notes * [...] but this was not performed due to housekeeper cleaning cooking did not have a phone number for the patient/son. She presented to [facility] yesterday for evaluation of left abdominal/flank pain since her last discharge. Her pain had worsened last week and she was evaluated at [place] and prescribed antibioticsand referred to [facility], but transfer request was never completed. Upon [...] 0.9 % 100 mL IVPB 2 g [id number] (NS) Filemon Rachel MD [Held by provider [...] Resource Strain: High Risk (06/28/2021) Received from [facility] Financial Resource Strain Difficulty of Paying Living [...] CT ABD PELVIS W IV CONT LOCATION: [facility] DATE: 09/26/2023 INDICATION: Left-sided abdominal [...] and exam is facilitated by the professional [facility] taffy candy maker,to assist in providing culturally sensitive care. The remaining interpretation provided by family. Millie Morales PA-C 09/27/2023, 7:48 AM documented in this encounter OR Notes * H&P - Filemon Rachel MD - 09/26/2023 11:58 PM CDT Images from the original note were not included. [facility] Medicine History & Physical Patient name: Pilar Messina : 1945 Date of Admission: 09/26/2023 7:33 PM Date of Service: 09/27/2023 Attending/Staff: Filemon Rachel MD [facility] Used: Her son interpreting by the bedsiderenita professional taffy candy maker. Chief Complaint Abdminla pain History of Present Illness 78 y.o. female with PMH of hypertension, CAD, obstructing left ureteral stone with hydronephrosis s/p ureteral stent on 08/27/2023 presents with left side abdominal/flank pain. Her son by the bedsideinterpretingrenita professional taffy candy maker. Reports pain is similar to prior ureteral colic, not resolved completely since her discharge. She was supposed to follow with urology 2-4 weeks after stent was placed but this has not happened yet. She reports her pain was worse over the last 1 week so they went to outside hospital at [place] and she was prescribed oral antibiotics and referred to [facility]. Reports associated dysuria but denies any fever [...] Resource Strain: High Risk (06/28/2021) Received from [facility] [place]. com. cn [facility] Financial Resource Strain Difficulty of Paying Living [...] results for input(s): PH, PHV, PHCAP, PCO2, ZPK8OCI, PCO2V, LIR9UXK, PO2, PO2ART, PO2V, PO2CAP in the last [...] Keep NPO after midnight # Hypertension Continue COMPENSATION CONSULTANT metoprolol # CAD s/p CABG 2009, s/p CRYSTAL x4, 10/2022 Hold COMPENSATION CONSULTANT Plavix, continue ASA and Crestor # Chronic LLE pain Continue COMPENSATION CONSULTANT gabapentin # History of HFpEF Not in exacerbation, continue holding Lasix( on hold since last discharge) FEN: NPO, IV LR at 75 mL per/hr PPx: SCDs Lines/Catheters: PIV Level of Care: General care Code Status/Goals of Care: Full code This note may contain text created using speech-recognition software and may contain unintended word substitutions. Filemon Rachel MD [facility], [facility] Pager: [phone] documented in this encounter ED Notes * Jimena Delcid RN - 09/27/2023 12:40 AM CDT Patient transported to unit via transport aid * Grey Espinosa PA-C - 09/26/2023 8:07 PM CDT [facility] Medicine Visit Note Chief Complaint: Abdominal Pain HPI Pilar Messina is a 78 y.o. female that presents to the ED for evaluation of abdominal pain. Patient is here with her son Patricia who serves as [facility] taffy candy maker. Patient had a ureteral stent placed in July. She was supposed to have 2 week follow up, but this never happened. Over the last week, patient has been having increased pain, pain with urination, and pain with eating. Patient was recently admitted to [place] for fluids, and antibiotics. Patient denies any [...] appointment never happened. Patient did present to [place], where a transfer request was initiated, but [...] visit, and supervised patient care with the business management professor. [KG] 8928 CT Abd Pelvis W IV Cont IMPRESSION: [...] - 10.5 x10(9)/L 09/30/2023 7:40 AM T [facility] RBC 4.33 3.90 - 5.03 x10(12)/L 09/30/2023 7:[address] [facility] Hemoglobin 11.1(L) 12.0 - 15.5 g/dL 09/30/2023 7:[address] [facility] HCT 36.2 34.9 - 44.5 % 09/30/2023 7:[address] [facility] MCV 83.6 80.0 - 100.0 fL 09/30/2023 7:40 AM T [facility] MCH 25.6(L) 27.6 - 33.3 pg 09/30/2023 7:[address] [facility] MCHC 30.7(L) 31.5 - 35.2 g/dL 09/30/2023 7:[address] [facility] RDW 14.9 11.9 - 15.5 % 09/30/2023 7:[address] [facility] Platelets 200 150 - 450 x10(9)/L 09/30/2023 7:[address] [facility] Automated NRBC 0 <=0 /100 WBC 09/30/2023 7:[address] [facility] Blood Venipuncture / Unknown 09/30/2023 7:24 AM CDT 09/30/2023 7:33 AM CDT Simran Kunz APRN, COUNTRY SINGER LAB_[address] [address], [facility] * (ABNORMAL) Basic Metabolic Panel (09/30/2023 7:24 AM CDT) Sodium 140 136 - 145 mmol/L 09/30/2023 8:[address] [facility] Potassium 4.1 3.5 - 5.1 mmol/L 09/30/2023 8:[address] [facility] Chloride 106 98 - 109 mmol/L 09/30/2023 8:[address] [facility] CO2 22 20 - 29 mmol/L 09/30/2023 8:[address] [facility] Anion Gap 12 7 - 16 mmol/L 09/30/2023 8:[address] [facility] Calcium 9.2 8.4 - 10.4 mg/dL 09/30/2023 8:[address] [facility] BUN 11 7 - 26 mg/dL 09/30/2023 8:[address] [facility] Creatinine 0.71 0.55 - 1.02 mg/dL 09/30/2023 8:[address] [facility] Glucose 119(H) 70 - 100 mg/dL 09/30/2023 8:[address] [facility] Comment:The given reference range is for the fasting state. Non-fasting reference range for glucose is 70 - 180 mg/dL. GFR, Estimated >60 >60 mL/min/1.7 3m2 09/30/2023 8:[address] [facility] Blood Venipuncture / Unknown 09/30/2023 7:24 AM CDT 09/30/2023 7:33 AM CDT Simran Kunz APRN COUNTRY SINGER LAB_1 Performing Organization Address [facility] [place] [address], [facility] * Glucose, Whole Blood POCT (09/29/2023 7:39 PM CDT) Glucose, Whole Blood 109 70 - 180 mg/dL 09/29/2023 7:[address] [facility] Performing Location [facility] PACU 09/29/2023 7:[address] [facility] Blood 09/29/2023 7:39 PM CDT 09/29/2023 7:41 PM CDT Simran Kunz APRN, COUNTRY SINGER LAB_1 Performing Organization Address City/[facility]/ZIP Co de Phone Number [address] * XR C-Arm 1-1.5 Hours (09/29/2023 7:28 PM CDT) Anatomical Region Laterality Modality X-Ray Angiograph y Narrative 09/29/2023 7:29 PM CDT Fluoroscopy provided by a eeg technologist. Exact fluoroscopy time is documented in end of exam information in EPIC Simran Kunz APRN, CNP RAD GD * Glucose, Whole Blood POCT (09/29/2023 4:07 AM CDT) Pathologist [facility] Glucose, Whole Blood 98 70 - 180 mg/dL 09/29/2023 4:10 AM CDT [facility] Performing Location [facility] C91 09/29/2023 4:10 AM CDT [facility] Blood 09/29/2023 4:07 AM CDT 09/29/2023 4:10 AM CDT Simran Kunz APRN, CNP LAB_1 Performing Organization Address [facility] Co de Phone Number [address] * IV Insertion, LST Perform (09/28/2023 9:41 AM CDT) Pathologist [facility] IV INSERTION, LST PERFORM (LAB) Done 09/28/2023 12:00 PM CDT [facility] Other Specimen Type IV Start / Unknown 09/28/2023 9:41 AM CDT 09/28/2023 10:02 AM CDT Simran Kunz APRN, CNP LAB_1 Performing Organization Address [facility] Co de Phone Number [address] * Basic Metabolic Panel (09/28/2023 7:33 AM CDT) Sodium 140 136 - 145 mmol/L 09/28/2023 8:28 AM CDT [facility] Potassium 4.0 3.5 - 5.1 mmol/L 09/28/2023 8:[address] [facility] Chloride 108 98 - 109 mmol/L 09/28/2023 8:[address] [facility] CO2 21 20 - 29 mmol/L 09/28/2023 8:[address] [facility] Anion Gap 11 7 - 16 mmol/L 09/28/2023 8:[address] [facility] Calcium 8.8 8.4 - 10.4 mg/dL 09/28/2023 8:[address] [facility] BUN 10 7 - 26 mg/dL 09/28/2023 8:[address] [facility] Creatinine 0.72 0.55 - 1.02 mg/dL 09/28/2023 8:[address] [facility] Glucose 97 70 - 100 mg/dL 09/28/2023 8:[address] [facility] Comment:The given reference range is for the fasting state. Non-fasting reference range for glucose is 70 - 180 mg/dL. GFR, Estimated >60 >60 mL/min/1.7 3m2 09/28/2023 8:[address] [facility] Blood Venipuncture / Unknown 09/28/2023 7:33 AM CDT 09/28/2023 7:55 AM CDT Gordon Lama APRN, CNP LAB_[address] * Folate Only (4Hr Fast Recommended) (09/27/2023 2:03 PM CDT) Folate 11.7 >=7.0 ng/mL 09/29/2023 11:57 AM CDT [facility] Blood Venipuncture / Unknown 09/27/2023 2:03 PM CDT 09/27/2023 2:22 PM CDT Gordon Lama APRN, CNP LAB_1 [facility] [address] * (ABNORMAL) Hgb A1C (09/27/2023 7:17 AM CDT) Hemoglobin A1C 6.6(H) <=5.6 % 09/28/2023 10:59 AM CDT [facility] Estimated Average Glucose (Calc) 143 < 117 mg/dL 09/28/2023 10:59 AM CDT [facility] Comment:Estimated average gl ucose (eAG) converts A1c into glucose units (mg/dL) and estimates average glucose over the past approximately 3 months. The eAG reference interval (<117 mg/dL) corresponds to an A1c of <5.7%. Blood Venipuncture / Unknown 09/27/2023 7:17 AM CDT 09/27/2023 7:24 AM CDT [facility] LAB - 09/28/2023 10:59 AM CDT For patients not previously diagnosed with diabetes: 5.7-6.4%: Increased risk for diabetes 6.5% and greater: Diagnostic for diabetes For patients diagnosed with diabetes: <8.0%: Goal of therapy for ages 18-75 Clinicians may recommend a higher or lower goal for specific individuals. Gordon Lama APRN, RICARDO LAB_1 [facility] [address] [address], [facility] * (ABNORMAL) Vitamin B12 Only (09/27/2023 7:17 AM CDT) Vitamin B12 189(L) 213 - 816 pg/mL 09/28/2023 12:02 PM CDT [facility] Blood Venipuncture / Unknown 09/27/2023 7:17 AM CDT 09/27/2023 7:24 AM CDT [facility] LAB - 09/28/2023 12:02 PM CDT Borderline low serum Vitamin B12 values may not be diagnositic of B12 deficiency (140 to 209 pg/mL). Consider serum methylmalonic acid and homocysteine levels for confirmation. Serum B12 far below normal indicates deficency (<140 pg/mL). Gordon Lama APRN, CNP LAB_1 [facility] [address] * (ABNORMAL) Iron Profile (Iron,TIBC,%Sat.(Calc)) (09/27/2023 7:17 AM CDT) Pathologist [facility] Iron 29(L) 50 - 170 mcg/dL 09/27/2023 1:52 PM CDT [facility] Transferrin 247 180 - 382 mg/dL 09/27/2023 1:52 PM T [facility] TIBC, Calculated 309 240 - 450 mcg/dL 09/27/2023 1:52 PM T [facility] % Saturation, Calculated 9(L) 10 - 50 % 09/27/2023 1:52 PM T [facility] TIBC Interpretation Low iron, normal TIBC, possible iron deficiency. 09/27/2023 1:52 PM T [facility] Blood Venipuncture / Unknown 09/27/2023 7:17 AM CDT 09/27/2023 7:24 AM CDT Gordon Lama APRN, CNP LAB_[address] * (ABNORMAL) Complete Blood Count-W/Diff (09/27/2023 7:17 AM CDT) Pathologist [facility] WBC 4.2 3.5 - 10.5 x10(9)/L 09/27/2023 7:34 AM CDT [facility] RBC 3.89(L) 3.90 - 5.03 x10(12)/L 09/27/2023 7:[address] [facility] Hemoglobin 9.9(L) 12.0 - 15.5 g/dL 09/27/2023 7:34 AM T [facility] HCT 33.4(L) 34.9 - 44.5 % 09/27/2023 7:[address] [facility] MCV 85.9 80.0 - 100.0 fL 09/27/2023 7:[address] [facility] MCH 25.4(L) 27.6 - 33.3 pg 09/27/2023 7:[address] [facility] MCHC 29.6(L) 31.5 - 35.2 g/dL 09/27/2023 7:[address] [facility] RDW 15.6(H) 11.9 - 15.5 % 09/27/2023 7:[address] [facility] Platelets 167 150 - 450 x10(9)/L 09/27/2023 7:[address] [facility] Automated NRBC 0 <=0 /100 WBC 09/27/2023 7:[address] [facility] Neutrophil Absolute 2.4 1.7 - 7.0 10(9)/L 09/27/2023 7:[address] [facility] Lymphocyte Absolute 1.1 1.0 - 4.8 10(9)/L 09/27/2023 7:[address] [facility] Monocyte Absolute 0.4 0.2 - 0.9 10(9)/L 09/27/2023 7:[address] [facility] Eosinophil Absolute 0.2 0.0 - 0.5 10(9)/L 09/27/2023 7:[address] [facility] Basophil Absolute 0.0 0.0 - 0.3 10(9)/L 09/27/2023 7:[address] [facility] Immature Granulocyte % 0.2 0.0 - 0.5 % 09/27/2023 7:[address] [facility] Blood Venipuncture / Unknown 09/27/2023 7:17 AM CDT 09/27/2023 7:24 AM CDT Filemon Rachel MD LAB_[address] [address], [facility] * (ABNORMAL) Basic Metabolic Panel (09/27/2023 7:17 AM CDT) Sodium 138 136 - 145 mmol/L 09/27/2023 7:[address] [facility] Potassium 3.8 3.5 - 5.1 mmol/L 09/27/2023 7:[address] [facility] Chloride 110(H) 98 - 109 mmol/L 09/27/2023 7:[address] [facility] CO2 21 20 - 29 mmol/L 09/27/2023 7:[address] [facility] Anion Gap 7 7 - 16 mmol/L 09/27/2023 7:[address] [facility] Calcium 8.3(L) 8.4 - 10.4 mg/dL 09/27/2023 7:[address] [facility] BUN 8 7 - 26 mg/dL 09/27/2023 7:[address] [facility] Creatinine 0.60 0.55 - 1.02 mg/dL 09/27/2023 7:[address] [facility] Glucose 96 70 - 100 mg/dL 09/27/2023 7:[address] [facility] Comment:The given reference range is for the fasting state. Non-fasting reference range for glucose is 70 - 180 mg/dL. GFR, Estimated >60 >60 mL/min/1.7 3m2 09/27/2023 7:[address] [facility] Blood Venipuncture / Unknown 09/27/2023 7:17 AM CDT 09/27/2023 7:24 AM CDT Filemon Rachel MD LAB_1 Performing Organization Address City/[facility] [place] [address], [facility] * Glucose, Whole Blood POCT (09/27/2023 4:27 AM CDT) Glucose, Whole Blood 111 70 - 180 mg/dL 09/27/2023 4:[address] [facility] POCT Comment 1 MD/RN Notified 09/27/2023 4:[address] [facility] Performing Location [facility] C91 09/27/2023 4:[address] [facility] Blood 09/27/2023 4:27 AM CDT 09/27/2023 4:28 AM CDT Filemon Rachel MD LAB_1 Performing Organization Address City/[facility]/[place] [address], [facility] * CT Abd Pelvis W IV [...] CT ABD PELVIS W IV CONT LOCATION: [facility] DATE: 09/26/2023 INDICATION: Left-sided abdominal [...] - 78 U/L 09/26/2023 10:23 PM CDT [facility] Blood Venipuncture / Unknown 09/26/2023 9:48 PM CDT 09/26/2023 9:53 PM CDT Grey Espinosa PA-C LAB_[address] * (ABNORMAL) Liver Panel (Hepatic Function Panel) (09/26/2023 9:48 PM CDT) Alkaline Phosphatase 124 40 - 150 U/L 09/26/2023 10:23 PM CDT [facility] Bilirubin, Total 0.6 0.2 - 1.2 mg/dL 09/26/2023 10:23 PM CDT [facility] Bilirubin, Direct 0.2 0.0 - 0.5 mg/dL 09/26/2023 10:23 PM T [facility] AST (SGOT) 14 10 - 40 U/L 09/26/2023 10:23 PM CDT [facility] ALT (SGPT) 11 <=55 U/L 09/26/2023 10:23 PM T [facility] Protein, Total 6.5 6.4 - 8.3 g/dL 09/26/2023 10:23 PM T [facility] Albumin 2.8(L) 3.5 - 5.0 g/dL 09/26/2023 10:23 PM T [facility] Blood Venipuncture / Unknown 09/26/2023 9:48 PM CDT 09/26/2023 9:53 PM CDT Grey Espinosa PA-C LAB_1 [place] [address], [facility] * (ABNORMAL) Basic Metabolic Panel (09/26/2023 9:48 PM CDT) Pathologist [facility] Sodium 137 136 - 145 mmol/L 09/26/2023 10:[address] [facility] Potassium 3.8 3.5 - 5.1 mmol/L 09/26/2023 10:[address] [facility] Chloride 107 98 - 109 mmol/L 09/26/2023 10:[address] [facility] CO2 20 20 - 29 mmol/L 09/26/2023 10:[address] [facility] Anion Gap 10 7 - 16 mmol/L 09/26/2023 10:[address] [facility] Calcium 8.8 8.4 - 10.4 mg/dL 09/26/2023 10:[address] [facility] BUN 11 7 - 26 mg/dL 09/26/2023 10:[address] [facility] Creatinine 0.77 0.55 - 1.02 mg/dL 09/26/2023 10:[address] [facility] Glucose 125(H) 70 - 100 mg/dL 09/26/2023 10:[address] [facility] Comment:The given reference range is for the fasting state. Non-fasting reference range for glucose is 70 - 180 mg/dL. GFR, Estimated >60 >60 mL/min/1.7 3m2 09/26/2023 10:[address] [facility] Blood Venipuncture / Unknown 09/26/2023 9:48 PM CDT 09/26/2023 9:53 PM CDT Grey Espinosa PA-C LAB_[address] [address], [facility] * (ABNORMAL) Complete Blood Count no Diff (09/26/2023 9:48 PM CDT) Pathologist [facility] WBC 5.6 3.5 - 10.5 x10(9)/L 09/26/2023 9:[address] [facility] RBC 4.06 3.90 - 5.03 x10(12)/L 09/26/2023 9:[address] [facility] Hemoglobin 10.4(L) 12.0 - 15.5 g/dL 09/26/2023 9:[address] [facility] HCT 34.1(L) 34.9 - 44.5 % 09/26/2023 9:[address] [facility] MCV 84.0 80.0 - 100.0 fL 09/26/2023 9:[address] [facility] MCH 25.6(L) 27.6 - 33.3 pg 09/26/2023 9:[address] [facility] MCHC 30.5(L) 31.5 - 35.2 g/dL 09/26/2023 9:[address] [facility] RDW 15.6(H) 11.9 - 15.5 % 09/26/2023 9:[address] [facility] Platelets 165 150 - 450 x10(9)/L 09/26/2023 9:[address] [facility] Automated NRBC 0 <=0 /100 WBC 09/26/2023 9:[address] [facility] Blood Venipuncture / Unknown 09/26/2023 9:48 PM CDT 09/26/2023 9:53 PM CDT Grey Espinosa PA-C LAB_1 Performing Organization Address City/State/[facility] [place] [address], [facility] * (ABNORMAL) Urine Culture (09/26/2023 9:02 PM CDT) Urine Culture Growth(A) 09/27/2023 5:[address] [facility] Urine Culture <10,000 CFU/mL Mixed Bacterial Growth 09/27/2023 5:[address] [facility] [facility] Comment: Mixed Bacterial Growth indicates the specimen is likely contaminated at collection with urogenital and/or fecal lou. The presence of organisms at <10,000 cfu/ml in culture, UTI unlikely. Urine URINE SPECIMEN COLLECTION, CLEAN CATCH / Unknown Non-blood Collection / Unknown 09/26/2023 9:02 PM CDT 09/26/2023 9:31 PM CDT Grey Espinosa PA-C LAB_[address] [address], [facility] * (ABNORMAL) UA Conditional UC: Clean Catch (09/26/2023 9:02 PM CDT) Urine Culture Comment Urinalysis results meet criteria for reflex, culture performed. 09/26/2023 9:[address] [facility] Urine Color [place] 09/26/2023 9:[address] [facility] Urine Clarity Turbid(A) Clear 09/26/2023 9:[address] [facility] Specific [place], Urine 1.020 <1.030 09/26/2023 9:[address] [facility] PH Urine 6.0 5.0 - 8.0 09/26/2023 9:[address] [facility] Protein, Urine Qual (mg/dL) 100(A) Negative, 10 , 20 09/26/2023 9:[address] [facility] Glucose Urine Qual (mg/dL) Normal (Negative) Normal (Negative), 30 , 50 09/26/2023 9:[address] [facility] Ketones, Urine (mg/dL) Negative Negative, Trace 09/26/2023 9:[address] [facility] Urobilinogen, Urine (EU/dL) Normal (Negative) Normal (Negative) 09/26/2023 9:[address] [facility] Bilirubin Urine (mg/dL) Negative Negative 09/26/2023 9:[address] [facility] Blood, Urine (mg/dL) OVER (>1.0, Large)(A) Negative, 0.03 (Trace) 09/26/2023 9:[address] [facility] Nitrite Urine Negative Negative 09/26/2023 9:[address] [facility] Leukocyte Esterase, Urine (Ant/uL) 500 (Large)(A) Negative, 25 (Trace) 09/26/2023 9:[address] [facility] Red Blood Cells >180(H) 0 - 3 /HPF 09/26/2023 9:[address] [facility] White Blood Cells 116(H) 0 - 5 /HPF 09/26/2023 9:[address] [facility] Squamous Epithelial Cells Occasional None Seen, Occasional, Few /HPF 09/26/2023 9:[address] [facility] Mucus Present(A) None Seen /HPF 09/26/2023 9:39 PM CDT [facility] Urine Source Clean Catch 09/26/2023 9:39 PM CDT [facility] Urine URINE SPECIMEN COLLECTION, CLEAN CATCH / Unknown Non-blood Collection / Unknown 09/26/2023 9:02 PM CDT 09/26/2023 9:07 PM CDT Narrative [facility] - 09/26/2023 9:39 PM CDT The qualitative interpretive guidance provided (e.g., small, moderate, large) is intended to aid in quantitative result interpretation. It is not itself an FDA-cleared test result. Grey Espinosa PA-C LAB_[address] [address], [facility] documented in this encounter Visit Diagnoses Diagnosis [...] Coronary atherosclerosis of unspecified type of vessel, [place] or graft Essential hypertension (HRC) Unspecified essential hypertension Left ureteral stone * Plan of Care - Enedina Martin RN - 09/30/2023 12:10 PM CDT [facility] Discharge Note - Nursing Admission Date/Time: 09/26/2023 7:33 PM Attending MD: Simran Kunz, MAIL DELIVERY SUPERVISOR, COUNTRY SINGER Patient discharged: to Home. Discharge Date: 09/30/2023 [...] Castillo LSW - 09/30/2023 11:36 AM CDT [facility] Care Management Screening Insurance Coverage: Payor: [facility] / Plan: [facility] / Product Type: Medicaid / Primary [...] SW did place return call to patient's [facility] MYCHAL Stern PH: [phone]. SW able to leave a message to Leena regarding patient's admission date and discharge of today. Please consult if additional needsdo arise. BIBIANA Peterson * Plan of Care - Natalia Solis RN - 09/30/2023 2:51 AM CDT Pt alert, awake and oriented x3. Disoriented to situation. Communicated via iPad taffy candy maker. Reoriented as needed. Explained POC. Denies pain, SOB and N/V/D. IV LR infusing at 75 ml/hr. Up to the BRwith A1, GB and walker. * Plan of Care - Oliver Evans RN - 09/29/2023 10:56 PM CDT [facility] Plan of Care Note Pt is alert and oriented with some confusion to time noted. Pt is calm and cooperative with cares. Son present for communication and ipad taffy candy maker used after family left. Pt reported pain and received PRN tylenol. PRN was effective. Denies N/V, SOB. IV LR infusing at 75 ml/hr. Pt went for surgery this shift and post-op vitals obtained. VS stable on RA. Call light and alarms in place for safety. --- End of Report ---[facility]. Practitioner Notified Note Name of [...] RN - 09/29/2023 1:40 PM CDT ong taffy candy maker used for assessment/cares. Pt A&Ox3, disoriented to [...] Sebastian RN - 09/29/2023 6:18 AM CDT [facility] utilized w/ encounters. Patient A/O x3. VSS [...] on. Pt is Hmong speaking and requires taffy candy maker. * Plan of Care - Kelleymaria d Brea L - 09/28/2023 2:21 PM CDT Patient is A&O x3, disoriented to time. Needs [facility] taffy candy maker. Heart rate is cecilia in the 50's, [...] alarm on for safety. Assumed cares from [id number] * Plan of Care - Renetta Castillo LSW - 09/28/2023 11:16 AM CDT [facility] Care Management Screening Insurance Coverage: Payor: ARE / Plan: [facility] / Product Type: Medicaid / Primary [...] to time, Hmong speaking only - iPad taffy candy maker used and family helping to interpret per [...] Haque RN - 09/27/2023 2:34 PM CDT [facility] Plan of Care Note Assumed [...] and Intervention: Triage: Yellow Bands and Non-slip aerial tram operator footwear documented in this encounter Administered Medications [...] (SUBLIMAZE) injection 25-50 mcg 25-50 mcg, Intravenous, [id number], Pain, Starting on Wed09/29/23 at 1925, Until [...] (NORMODYNE) injection 5 mg 5 mg, Intravenous, [id number], Blood Pressure >, Starting on Wed09/29/23 at [...] in Manage Orders - Provider: Inpatient Template Epicnj) cyanocobalamin (VITAMIN B12) tablet 1,000 mcg 1,000 [...] (SUBLIMAZE) injection 25-50 mcg 25-50 mcg, Intravenous, [id number], Pain, Starting on Wed09/29/23 at 1925, Until [...] (NORMODYNE) injection 5 mg 5 mg, Intravenous, [id number], Blood Pressure >, Starting on Wed09/29/23 at [...] Practitioner. documented in this encounter Care Teams Car Supplier Relationship Specialty Start Date End Date No Primary/Referring, Phy PCP - General 08/26/23 documented as of this encounter
--- OUTSIDE RECORDS SUMMARY | 2023-12-26 08:23 | XMS_ITS | Encounter Summary ---
Author Organization [facility] Address [address] [address] Care Team Providers Care Cylinder Block Mechanic Name Role Phone No Primary/Referring, Phy Primary [...] Expiration Date Visits Re quested Visits Authorized [id number] 1 1 Encounter Details Date Type Department Care Team (Late st Contact Info) Description 09/26/2023 8:00 PM CDT Ancillary Procedure [facility] [address] [address] Social History Tobacco Use Types Packs/Day Years Used Date Smoking Tobacco: Never Assessed [facility] Utilities Answer Date Recorded In the past 12 months has [facility] electric, gas, oil, or water company threatened [...] place to sleep or slept in a care home (including now)? No 09/27/2023 Sex and [...] mL documented in this encounter Care Teams Cylinder Block Mechanic Relationship Specialty Start Date End Date No Primary/Referring, Phy PCP - General 08/26/23 documented as of this encounter
--- OUTSIDE RECORDS SUMMARY | 2023-12-26 08:23 | XMS_ITS | Encounter Summary ---
Author Organization [facility] Address [address], [place] [address] Care Team Providers Care Videographer Name Role Phone No Primary/Referring, Phy Primary [...] Expiration Date Visits Re quested Visits Authorized [id number] 1 1 Encounter Details Date Type Department Care Team (Late st Contact Info) Description 09/29/2023 5:30 PM CDT Ancillary Procedure [facility] Radiology [address] [place] [address] Social History Tobacco Use Types Packs/Day Years Used Date Smoking Tobacco: Never Assessed [facility] Utilities Answer Date Recorded In the past 12 months has [facility] electric, gas, oil, or water company [...] 7:29 PM CDT Fluoroscopy provided by a clinical technologist. Exact fluoroscopy time is documented in end of exam information in EPIC Simran Kunz APRN, GARBAGE PICK UP MAN RAD [facility] documented in this encounter Visit Diagnoses Not on filedocumented in this encounter Care Teams Videographer Relationship Specialty Start Date End Date No Primary/Referring, Phy PCP - General 08/26/23 documented as of this encounter
--- OUTSIDE RECORDS SUMMARY | 2023-12-26 08:23 | XMS_ITS | Encounter Summary ---
Author Organization [facility] Address [address] [address] Care Team Providers Care Field Instructor Name Role Phone No Primary/Referring, Phy Primary Care Provider Unavailable Encounter Details Date Type Department Care Team (Latest Contact Info) Description 09/26/2023 Orders Only [facility] Provider, [place] [address] Social History Tobacco Use Types Packs/Day Years Used Date Smoking Tobacco: Never Assessed [facility] Utilities Answer Date Recorded In the past 12 months has e electric, gas, oil, or water [employer] threatened to shut off services in your [...] place to sleep or slept in a intermediate (including now)? No 09/27/2023 Sex and Gender [...] on filedocumented in this encounter Care Teams Field Instructor Relationship Specialty Start Date End Date No Primary/Referring, Phy PCP - General 08/26/23 documented as of this encounter
== END 2023-12-24 00:44 | disposition home or self-care (01) ==
LOC: AMB 12-26 08:20
PROVIDERS: PCP Family Medicine; Visit Provider Family Medicine
DX: N20.0 Calculus of kidney (principal)
CPT/HCPCS: A0425; A0427

== ENCOUNTER 2024-01-05 09:48 | Outpatient (CLI) | payer MEDICARE, MEDICAID, SELFPAY ==
--- OUTSIDE RECORDS SUMMARY | 2024-01-05 09:52 | XMS_ITS | Encounter Summary ---
Author Organization [facility] Address [address] [address] Care Team Providers Care Spout Tender Name Role Phone No Primary/Referring, Phy Primary Care Provider Unavailable Reason for Referral * Consult/Transfer Care (Routine) - Closed Specialty Diagnoses / Procedures Referred By Alfonso t Referred To Contact Diagnoses Urinary tract infection with hematuria, site unspecified Left ureteral stone Hydronephrosis of left kidney Complicated UTI (urinary tract infection) Simran Kunz APRN, CNP [address] [place] [phone] Referral ID Status Reason Start Date Expiration Date Visits Re quested Visits Authorized [id number] Closed 09/30/2023 12/29/2023 1 1 Scheduling Instructions Your clinician has recommended an appointment with [facility] for your ongoing patient care. You can quickly make your appointment online at [facility] [employer]/schedule. You can also call [phone] for help scheduling your appointment. We suggest you call your health insurance company about your coverage and benefits for this appointment. Question Answer What type of follow up? IP Discharge Appointment Urgency? Non-Urgent Comments Primary Care Provider: No Primary/Referring * (Routine) - Incomplete Specialty Diagnoses / Procedures Referred By Contcolin t Referred To Contact Procedures XR C-Arm 1-1.5 Hours Simran Kunz APRN, CNP [address] [place] [id number] Referral ID Status Reason Start Date Expiration Date V isits Requested Visits Authorized [id number] Incomplete 09/29/2023 12/28/2024 1 1 * Procedure/Equipment (Routine) - Incomplete Specialty Diagnoses / Procedures Referred By Contac t Referred To Contact Procedures CT Abd Pelvis W IV Grey Cornejo PA-C [address] [place] [id number] Referral ID Status Reason Start Date Expiration Date V isits Requested Visits Authorized [id number] Incomplete 09/26/2023 12/25/2024 1 1 Reason for [...] Expiration Date Visits Re quested Visits Authorized [id number] 1 1 Encounter Details Date Type Department Care Team (Late st Contact Info) Description 09/26/2023 7:33 PM CDT - 09/30/2023 2:15 PM CDT Hospital Encounter RH C[address] [place] [id number] Edilma Sandy MD [address] [place] [id number] Filemon Rachel MD [address] [place] [phone] Robert Martin MD [address] [place] [phone] Ramona Angel PA-C [address] [place] [id number] Gordon Lama APRN, ENVIRONMENTAL TEST TECHNICIAN [address] [place] [phone] Simran Kunz, SHAYNE, ENVIRONMENTAL TEST TECHNICIAN [address] [place] [address] Left ureteral stone (Primary Dx); Left flank pain; Urinary tract infection with hematuria, site unspecified; Renal stones; Pain; Hydronephrosis of left kidney; Complicated UTI (urinary tract infection); Hematuria syndrome; Hydronephrosis with renal and ureteral calculus obstruction Discharge Disposition: Home Social History Tobacco Use Types Packs/Day Years Used Date Smoking Tobacco: Never Assessed [facility] Utilities Answer Date Recorded In the past 12 months has th e [employer], gas, oil, or water [employer] threatened to shut off services in your [...] encounter Discharge Summaries * Simran Kunz, SHAYNE, ENVIRONMENTAL TEST TECHNICIAN - 09/30/2023 11:54 AM CDT [facility] Medicine Discharge Summary Patient ID: Pilar Messina [id number] 78 y.o. 1945 Admit date: 09/26/2023 Discharge [...] Her son by the bedsideinterpreting, declines professional die finisher forging. Reports pain is similar to prior ureteral colic, not resolved completely since her discharge. She was supposed to follow with urology 2-4 weeks after stent was placed but this has not happened yet. She reports her pain was worse over the last 1 week so they went to outside hospital at [facility] and she was prescribed oral antibiotics and [...] lidocaine patch - Stent removal schedule outpatient [facility] at 10 am. - Discussed with Adrián die finisher forging discharge instructions and with family Acute on [...] Your Medications These medications were sent to [facility] [address] [facility] [id number] Hours: Open 24x7 acetaminophen 325 MG tablet [...] Sheppard PA-C [facility] [id number] Significant Diagnostic Studies (imaging, labs, micro, etc), [...] 35 minutes including, but not limited to, [id number] time spent reviewing records, counseling, and coordination of care. Simran Kunz APRN, RICARDO [facility] Medicine documented in this encounter Discharge Instructions [...] facilitated by the professional [facility] die finisher forging, via iPad Language Line, to assist in [...] CABG 2009, s/p CRYSTAL x4, 10/2022: Hold GREENSMAN Plavix for upcoming procedure, continue ASA and [...] Care: Full Simran Kunz APRN, RICARDO Hospitalist, [facility] * Antonina Potts [...] with any questions. Antonina Potts PA-C Urology [facility] 09/29/23 8:05 AM * Millie Morales [...] CABG 2009, s/p CRYSTAL x4, 10/2022: Hold GREENSMAN Plavix for upcoming procedure, continue ASA and [...] Care: Full Simran Kunz APRN, CNP Hospitalist, [facility] * Gordon Lama [...] CABG 2009, s/p CRYSTAL x4, 10/2022: Hold GREENSMAN Plavix for upcoming procedure, continue ASA and [...] Care: Full Gordon Lama APRN, DI Hospitalist, [facility] Pager: [phone] documented in this encounter Procedure Notes * Jose Gee MD - 09/30/2023 12:00 AM CDT NAME: PILAR MESSINA CSN: [id number] OPERATIVE REPORT DATE OF SURGERY: 09/29/2023 : 1945 SURGEON: JOSE GEE MD PREOPERATIVE DIAGNOSES: 1. Previous stenting for a left obstructing ureteral stone. 2. Recent admission for sepsis and urinary tract infection. POSTOPERATIVE DIAGNOSES: 1. Previous stenting for a left obstructing ureteral stone. 2. Recent admission for sepsis and urinary tract infection. OPERATION PERFORMED: Left ureteroscopy with laser lithotripsy and stent replacement. ADDICTIONS COUNSELOR ASSISTANT: None. ANESTHESIA: General endotracheal. ESTIMATED BLOOD LOSS: [...] case was begun by inserting a 22- Solomon Islander rigid cystoscope into the bladder under direct [...] week for stent removal. MD ALEKSEY TANNER/SABIHA /[id number] documented in this encounter Consult Notes * [...] but this was not performed due to oral surgery physician did not have a phone number for the patient/son. She presented to [facility] yesterday for evaluation of left abdominal/flank pain since her last discharge. Her pain had worsened last week and she was evaluated at [facility] and prescribed antibioticsand referred to [facility], but transfer request was never completed. [...] 0.9 % 100 mL IVPB 2 g [id number] (NS) Filemon Rachel MD [Held by provider in Manage Orders] clopidogrel (PLAVIX) tablet 75 mg 75 mg Oral Daily Filemon Rachel MD gabapentin (NEURONTIN) capsule 300 mg 300 mg Oral TID Filemon Rachel MD HYDROmorphone (DILAUDID) injection 0.2 mg 0.2 mg Intravenous Q4H PRN Filemon Rachel MD lactated ringers infusion Intravenous Continuous Filemon aRchel MD 75 mL/hr at 09/27/23 0139 New [...] Resource Strain: High Risk (06/28/2021) Received from [facility] Financial Resource Strain Difficulty of Paying Living [...] CT ABD PELVIS W IV CONT LOCATION: [facility] DATE: 09/26/2023 INDICATION: Left-sided abdominal pain, [...] facilitated by the professional [facility] die finisher forging,to assist in providing culturally sensitive care. The [...] of Service: 09/27/2023 Attending/Staff: Filemon Rachel MD [employer] Used: Her son interpreting by the bedsiderenita professional die finisher forging. Chief Complaint Abdminla pain History of Present Illness 78 y.o. female with PMH of hypertension, CAD, obstructing left ureteral stone with hydronephrosis s/p ureteral stent on 08/27/2023 presents with left side abdominal/flank pain. Her son by the bedsidesmileytingrenita professional die finisher forging. Reports pain is similar to prior ureteral colic, not resolved completely since her discharge. She was supposed to follow with urology 2-4 weeks after stent was placed but this has not happened yet. She reports her pain was worse over the last 1 week so they went to outside hospital at [facility] and she was prescribed oral antibiotics and referred to [facility]. Reports associated dysuria but denies any [...] Resource Strain: High Risk (06/28/2021) Received from [facility] [employer] [facility] Financial Resource Strain Difficulty of Paying Living [...] results for input(s): PH, PHV, PHCAP, PCO2, BTN3YDG, PCO2V, ORR8EUA, PO2, PO2ART, PO2V, PO2CAP in the last [...] Keep NPO after midnight # Hypertension Continue GREENSMAN metoprolol # CAD s/p CABG 2009, s/p CRYSTAL x4, 10/2022 Hold GREENSMAN Plavix, continue ASA and Crestor # Chronic LLE pain Continue GREENSMAN gabapentin # History of HFpEF Not in exacerbation, continue holding Lasix( on hold since last discharge) FEN: NPO, IV LR at 75 mL per/hr PPx: SCDs Lines/Catheters: PIV Level of Care: General care Code Status/Goals of Care: Full code This note may contain text created using speech-recognition software and may contain unintended word substitutions. Filemon Rachel MD [facility] Medicine, [facility] Pager: [phone] documented in this encounter ED Notes * Jimena Delcid RN - 09/27/2023 12:40 AM CDT Patient transported to unit via transport aid * Grey Espinosa PA-C - 09/26/2023 8:07 PM CDT [facility] Emergency Medicine Visit Note Chief Complaint: Abdominal Pain HPI Pilar Messina is a 78 y.o. female that presents to the ED for evaluation of abdominal pain. Patient is here with her son Patricia who serves as [facility] die finisher forging. Patient had a ureteral stent placed in July. She was supposed to have 2 week follow up, but this never happened. Over the last week, patient has been having increased pain, pain with urination, and pain with eating. Patient was recently admitted to [facility] for fluids, and antibiotics. Patient denies any nausea, vomiting, chest pain, fevers, or constipation. Patient has been trying to use Ty lenol for pain, and was prescribed antibiotics, she has not sure what type. Of note, patient does endorsed shortness of breath in the context of pain. Triage Vitals [03/31/24 1918] Temp 97.3 ??F (36.3 ??C) Temp [...] appointment never happened. Patient did present to [facility], where a transfer request was initiated, but [...] visit, and supervised patient care with the mine technician. [KG] 2816 CT Abd Pelvis W IV Cont IMPRESSION: [...] - 10.5 x10(9)/L 09/30/2023 7:40 AM CDT [facility] RBC 4.33 3.90 - 5.03 x10(12)/L 09/30/2023 7:40 AM T [facility] Hemoglobin 11.1(L) 12.0 - 15.5 g/dL 09/30/2023 7:40 AM [facility] HCT 36.2 34.9 - 44.5 % 09/30/2023 7:40 AM [facility] MCV 83.6 80.0 - 100.0 fL 09/30/2023 7:40 AM T [facility] MCH 25.6(L) 27.6 - 33.3 pg 09/30/2023 7:40 AM T [facility] MCHC 30.7(L) 31.5 - 35.2 g/dL 09/30/2023 7:40 AM [facility] RDW 14.9 11.9 - 15.5 % 09/30/2023 7:40 AM [facility] Platelets 200 150 - 450 x10(9)/L 09/30/2023 7:40 AM [facility] Automated NRBC 0 <=0 /100 WBC 09/30/2023 7:40 AM T [facility] Blood Venipuncture / Unknown 09/30/2023 7:24 AM CDT 09/30/2023 7:33 AM CDT Simran Kunz APRN, ENVIRONMENTAL TEST TECHNICIAN LAB_[address] [address], [facility] * (ABNORMAL) Basic Metabolic Panel (09/30/2023 7:24 AM CDT) Sodium 140 136 - 145 mmol/L 09/30/2023 8:01 AM [facility] Potassium 4.1 3.5 - 5.1 mmol/L 09/30/2023 8:01 AM [facility] Chloride 106 98 - 109 mmol/L 09/30/2023 8:01 AM [facility] CO2 22 20 - 29 mmol/L 09/30/2023 8:01 AM [facility] Anion Gap 12 7 - 16 mmol/L 09/30/2023 8:01 AM [facility] Calcium 9.2 8.4 - 10.4 mg/dL 09/30/2023 8:01 AM [facility] BUN 11 7 - 26 mg/dL 09/30/2023 8:01 AM [facility] Creatinine 0.71 0.55 - 1.02 mg/dL 09/30/2023 8:01 AM [facility] Glucose 119(H) 70 - 100 mg/dL 09/30/2023 8:01 AM [facility] Comment:The given reference range is for the fasting state. Non-fasting reference range for glucose is 70 - 180 mg/dL. GFR, Estimated >60 >60 mL/min/1.7 3m2 09/30/2023 8:01 AM [facility] Blood Venipuncture / Unknown 09/30/2023 7:24 AM CDT 09/30/2023 7:33 AM CDT Simran Kunz APRN, ENVIRONMENTAL TEST TECHNICIAN LAB_1 Performing Organization Address [facility] [place] [address], [facility] * Glucose, Whole Blood POCT (09/29/2023 7:39 PM CDT) Glucose, Whole Blood 109 70 - 180 mg/dL 09/29/2023 7:41 PM [facility] Performing Location [facility] PACU 09/29/2023 7:41 PM [facility] Blood 09/29/2023 7:39 PM CDT 09/29/2023 7:41 PM CDT Simran Kunz APRN, ENVIRONMENTAL TEST TECHNICIAN LAB_[address] * XR C-Arm 1-1.5 Hours (09/29/2023 7:28 PM CDT) Anatomical Region Laterality Modality X-Ray Angiograph y Narrative 09/29/2023 7:29 PM CDT Fluoroscopy provided by a assistant professor of radiology. Exact fluoroscopy time is documented in end of exam information in EPIC Simran Kunz APRN, CNP RAD GD * Glucose, Whole Blood POCT (09/29/2023 4:07 AM CDT) [facility] Glucose, Whole Blood 98 70 - 180 mg/dL 09/29/2023 4:10 AM CDT [facility] Performing Location [facility] C91 09/29/2023 4:10 AM CDT [facility] Blood 09/29/2023 4:07 AM CDT 09/29/2023 4:10 AM CDT Simran Kunz APRN, CNP LAB_1 Performing Organization Address [facility] Co de Phone Number [address] * IV Insertion, LST Perform (09/28/2023 9:41 AM CDT) [facility] IV INSERTION, LST PERFORM (LAB) Done 09/28/2023 12:00 PM CDT [facility] Other Specimen Type IV Start / Unknown 09/28/2023 9:41 AM CDT 09/28/2023 10:02 AM CDT Simran Kunz APRN, CNP LAB_1 Performing Organization Address [facility] Co de Phone Number [address] * Basic Metabolic Panel (09/28/2023 7:33 AM CDT) Sodium 140 136 - 145 mmol/L 09/28/2023 8:28 AM CDT [facility] Potassium 4.0 3.5 - 5.1 mmol/L 09/28/2023 8:28 AM [facility] Chloride 108 98 - 109 mmol/L 09/28/2023 8:28 AM [facility] CO2 21 20 - 29 mmol/L 09/28/2023 8:28 AM [facility] Anion Gap 11 7 - 16 mmol/L 09/28/2023 8:28 AM [facility] Calcium 8.8 8.4 - 10.4 mg/dL 09/28/2023 8:28 AM [facility] BUN 10 7 - 26 mg/dL 09/28/2023 8:28 AM [facility] Creatinine 0.72 0.55 - 1.02 mg/dL 09/28/2023 8:28 AM [facility] Glucose 97 70 - 100 mg/dL 09/28/2023 8:28 AM [facility] Comment:The given reference range is for the fasting state. Non-fasting reference range for glucose is 70 - 180 mg/dL. GFR, Estimated >60 >60 mL/min/1.7 3m2 09/28/2023 8:28 AM [facility] Blood Venipuncture / Unknown 09/28/2023 7:33 AM CDT 09/28/2023 7:55 AM CDT Gordon Lama APRN, CNP LAB_1 [place] [address], [facility] * Folate Only (4Hr Fast Recommended) (09/27/2023 2:03 PM CDT) Folate 11.7 >=7.0 ng/mL 09/29/2023 11:57 AM CDT [employer] [facility] Blood Venipuncture / Unknown 09/27/2023 2:03 PM CDT 09/27/2023 2:22 PM CDT Gordon Lama APRN, CNP LAB_1 [facility] [address] [place] [address], [facility] * (ABNORMAL) Hgb A1C (09/27/2023 7:17 AM CDT) Hemoglobin A1C 6.6(H) <=5.6 % 09/28/2023 10:59 AM CDT [facility] CENTRAL LAB Estimated Average Glucose (Calc) 143 < 117 mg/dL 09/28/2023 10:59 AM CDT [facility] Comment:Estimated average gl ucose (eAG) converts A1c into glucose units (mg/dL) and estimates average glucose over the past approximately 3 months. The eAG reference interval (<117 mg/dL) corresponds to an A1c of <5.7%. Blood Venipuncture / Unknown 09/27/2023 7:17 AM CDT 09/27/2023 7:24 AM CDT [facility] LAB - 09/28/2023 10:59 AM CDT For patients not previously diagnosed with diabetes: 5.7-6.4%: Increased risk for diabetes 6.5% and greater: Diagnostic for diabetes For patients diagnosed with diabetes: <8.0%: Goal of therapy for ages 18-75 Clinicians may recommend a higher or lower goal for specific individuals. Gordon Lama APRN, ENVIRONMENTAL TEST TECHNICIAN LAB_1 [facility] [address] * (ABNORMAL) Vitamin B12 Only (09/27/2023 7:17 AM CDT) Vitamin B12 189(L) 213 - 816 pg/mL 09/28/2023 12:02 PM CDT [facility] Blood Venipuncture / Unknown 09/27/2023 7:17 AM CDT 09/27/2023 7:24 AM CDT [facility] LAB - 09/28/2023 12:02 PM CDT Borderline low serum Vitamin B12 values may not be diagnositic of B12 deficiency (140 to 209 pg/mL). Consider serum methylmalonic acid and homocysteine levels for confirmation. Serum B12 far below normal indicates deficency (<140 pg/mL). Gordon Lama APRN, CNP LAB_1 [facility] [address] * (ABNORMAL) Iron Profile (Iron,TIBC,%Sat.(Calc)) (09/27/2023 7:17 AM CDT) Pathologist [facility] Iron 29(L) 50 - 170 mcg/dL 09/27/2023 1:52 PM CDT [facility] Transferrin 247 180 - 382 mg/dL 09/27/2023 1:52 PM T [facility] TIBC, Calculated 309 240 - 450 mcg/dL 09/27/2023 1:52 PM T [facility] % Saturation, Calculated 9(L) 10 - 50 % 09/27/2023 1:52 PM [facility] TIBC Interpretation Low iron, normal TIBC, possible iron deficiency. 09/27/2023 1:52 PM T [facility] Blood Venipuncture / Unknown 09/27/2023 7:17 AM CDT 09/27/2023 7:24 AM CDT Gordon aLma APRN, CNP LAB_[address] * (ABNORMAL) Complete Blood Count-W/Diff (09/27/2023 7:17 AM CDT) WBC 4.2 3.5 - 10.5 x10(9)/L 09/27/2023 7:34 AM CDT [facility] RBC 3.89(L) 3.90 - 5.03 x10(12)/L 09/27/2023 7:34 AM CDT [facility] Hemoglobin 9.9(L) 12.0 - 15.5 g/dL 09/27/2023 7:34 AM T [facility] HCT 33.4(L) 34.9 - 44.5 % 09/27/2023 7:34 AM [facility] MCV 85.9 80.0 - 100.0 fL 09/27/2023 7:34 AM [facility] MCH 25.4(L) 27.6 - 33.3 pg 09/27/2023 7:34 AM [facility] MCHC 29.6(L) 31.5 - 35.2 g/dL 09/27/2023 7:34 AM [facility] RDW 15.6(H) 11.9 - 15.5 % 09/27/2023 7:34 AM [facility] Platelets 167 150 - 450 x10(9)/L 09/27/2023 7:34 AM [facility] Automated NRBC 0 <=0 /100 WBC 09/27/2023 7:34 AM [facility] Neutrophil Absolute 2.4 1.7 - 7.0 10(9)/L 09/27/2023 7:34 AM [facility] Lymphocyte Absolute 1.1 1.0 - 4.8 10(9)/L 09/27/2023 7:34 AM [facility] Monocyte Absolute 0.4 0.2 - 0.9 10(9)/L 09/27/2023 7:34 AM [facility] Eosinophil Absolute 0.2 0.0 - 0.5 10(9)/L 09/27/2023 7:34 AM [facility] Basophil Absolute 0.0 0.0 - 0.3 10(9)/L 09/27/2023 7:34 AM [facility] Immature Granulocyte % 0.2 0.0 - 0.5 % 09/27/2023 7:34 AM [facility] Blood Venipuncture / Unknown 09/27/2023 7:17 AM CDT 09/27/2023 7:24 AM CDT Filemon Rachel MD LAB_[address] [address], [facility] * (ABNORMAL) Basic Metabolic Panel (09/27/2023 7:17 AM CDT) Sodium 138 136 - 145 mmol/L 09/27/2023 7:57 AM [facility] Potassium 3.8 3.5 - 5.1 mmol/L 09/27/2023 7:57 AM [facility] Chloride 110(H) 98 - 109 mmol/L 09/27/2023 7:57 AM [facility] CO2 21 20 - 29 mmol/L 09/27/2023 7:57 AM [facility] Anion Gap 7 7 - 16 mmol/L 09/27/2023 7:57 AM [facility] Calcium 8.3(L) 8.4 - 10.4 mg/dL 09/27/2023 7:57 AM [facility] BUN 8 7 - 26 mg/dL 09/27/2023 7:57 AM [facility] Creatinine 0.60 0.55 - 1.02 mg/dL 09/27/2023 7:57 AM [facility] Glucose 96 70 - 100 mg/dL 09/27/2023 7:57 AM [facility] Comment:The given reference range is for the fasting state. Non-fasting reference range for glucose is 70 - 180 mg/dL. GFR, Estimated >60 >60 mL/min/1.7 3m2 09/27/2023 7:57 AM [facility] Blood Venipuncture / Unknown 09/27/2023 7:17 AM CDT 09/27/2023 7:24 AM CDT Filemon Rachel MD LAB_1 Performing Organization Address [facility] Co de Phone Number [address] * Glucose, Whole Blood POCT (09/27/2023 4:27 AM CDT) Glucose, Whole Blood 111 70 - 180 mg/dL 09/27/2023 4:28 AM [facility] POCT Comment 1 MD/RN Notified 09/27/2023 4:28 AM [facility] Performing Location [facility]AB C91 09/27/2023 4:28 AM [facility] Blood 09/27/2023 4:27 AM CDT 09/27/2023 4:28 AM CDT Filemon Rachel MD LAB_1 Performing Organization Address [facility] [place] [address], [facility] * CT Abd Pelvis W IV [...] CT ABD PELVIS W IV CONT LOCATION: [facility] DATE: 09/26/2023 INDICATION: Left-sided abdominal pain, [...] - 78 U/L 09/26/2023 10:23 PM CDT [facility] Blood Venipuncture / Unknown 09/26/2023 9:48 PM CDT 09/26/2023 9:53 PM CDT Grey Espinosa PA-C LAB_1 [facility] [address] * (ABNORMAL) Liver Panel (Hepatic Function Panel) (09/26/2023 9:48 PM CDT) Alkaline Phosphatase 124 40 - 150 U/L 09/26/2023 10:23 PM CDT [facility] Bilirubin, Total 0.6 0.2 - 1.2 mg/dL 09/26/2023 10:23 PM CDT [facility] Bilirubin, Direct 0.2 0.0 - 0.5 mg/dL 09/26/2023 10:23 PM T [facility] AST (SGOT) 14 10 - 40 U/L 09/26/2023 10:23 PM CDT [facility] ALT (SGPT) 11 <=55 U/L 09/26/2023 10:23 PM T [facility] Protein, Total 6.5 6.4 - 8.3 g/dL 09/26/2023 10:23 PM T [facility] Albumin 2.8(L) 3.5 - 5.0 g/dL 09/26/2023 10:23 PM T [facility] Blood Venipuncture / Unknown 09/26/2023 9:48 PM CDT 09/26/2023 9:53 PM CDT Grey Espinosa PA-C LAB_1 [facility] [address] [place] [address], [facility] * (ABNORMAL) Basic Metabolic Panel (09/26/2023 9:48 PM CDT) Pathologist [facility] Sodium 137 136 - 145 mmol/L 09/26/2023 10:23 PM [facility] Potassium 3.8 3.5 - 5.1 mmol/L 09/26/2023 10:23 PM [facility] Chloride 107 98 - 109 mmol/L 09/26/2023 10:23 PM [facility] CO2 20 20 - 29 mmol/L 09/26/2023 10:23 PM [facility] Anion Gap 10 7 - 16 mmol/L 09/26/2023 10:23 PM [facility] Calcium 8.8 8.4 - 10.4 mg/dL 09/26/2023 10:23 PM [facility] BUN 11 7 - 26 mg/dL 09/26/2023 10:23 PM [facility] Creatinine 0.77 0.55 - 1.02 mg/dL 09/26/2023 10:23 PM [facility] Glucose 125(H) 70 - 100 mg/dL 09/26/2023 10:23 PM [facility] Comment:The given reference range is for the fasting state. Non-fasting reference range for glucose is 70 - 180 mg/dL. GFR, Estimated >60 >60 mL/min/1.7 3m2 09/26/2023 10:23 PM [facility] Blood Venipuncture / Unknown 09/26/2023 9:48 PM CDT 09/26/2023 9:53 PM CDT Grey Espinosa PA-C LAB_[address] [address], [facility] * (ABNORMAL) Complete Blood Count no Diff (09/26/2023 9:48 PM CDT) [facility] WBC 5.6 3.5 - 10.5 x10(9)/L 09/26/2023 9:58 PM [facility] RBC 4.06 3.90 - 5.03 x10(12)/L 09/26/2023 9:58 PM [facility] Hemoglobin 10.4(L) 12.0 - 15.5 g/dL 09/26/2023 9:58 PM [facility] HCT 34.1(L) 34.9 - 44.5 % 09/26/2023 9:58 PM [facility] MCV 84.0 80.0 - 100.0 fL 09/26/2023 9:58 PM [facility] MCH 25.6(L) 27.6 - 33.3 pg 09/26/2023 9:58 PM [facility] MCHC 30.5(L) 31.5 - 35.2 g/dL 09/26/2023 9:58 PM [facility] RDW 15.6(H) 11.9 - 15.5 % 09/26/2023 9:58 PM [facility] Platelets 165 150 - 450 x10(9)/L 09/26/2023 9:58 PM [facility] Automated NRBC 0 <=0 /100 WBC 09/26/2023 9:58 PM [facility] Blood Venipuncture / Unknown 09/26/2023 9:48 PM CDT 09/26/2023 9:53 PM CDT Grey Espinosa PA-C LAB_1 Performing Organization Address City/[facility]/ZIP Co de Phone Number [address] * (ABNORMAL) Urine Culture (09/26/2023 9:02 PM CDT) Urine Culture Growth(A) 09/27/2023 5:20 PM [facility] Urine Culture <10,000 CFU/mL Mixed Bacterial Growth 09/27/2023 5:20 PM [facility] Comment: Mixed Bacterial Growth indicates the specimen is likely contaminated at collection with urogenital and/or fecal lou. The presence of organisms at <10,000 cfu/ml in culture, UTI unlikely. Urine URINE SPECIMEN COLLECTION, CLEAN CATCH / Unknown Non-blood Collection / Unknown 09/26/2023 9:02 PM CDT 09/26/2023 9:31 PM CDT Grey Espinosa PA-C LAB_[address] [address], [facility] * (ABNORMAL) UA Conditional UC: Clean Catch (09/26/2023 9:02 PM CDT) Urine Culture Comment Urinalysis results meet criteria for reflex, culture performed. 09/26/2023 9:39 PM [facility] Urine Color Light-Shelby 09/26/2023 9:39 PM [facility] Urine Clarity Turbid(A) Clear 09/26/2023 9:39 PM [facility] Specific [place], Urine 1.020 <1.030 09/26/2023 9:39 PM [facility] PH Urine 6.0 5.0 - 8.0 09/26/2023 9:39 PM [facility] Protein, Urine Qual (mg/dL) 100(A) Negative, 10 , 20 09/26/2023 9:39 PM [facility] Glucose Urine Qual (mg/dL) Normal (Negative) Normal (Negative), 30 , 50 09/26/2023 9:39 PM [facility] Ketones, Urine (mg/dL) Negative Negative, Trace 09/26/2023 9:39 PM [facility] Urobilinogen, Urine (EU/dL) Normal (Negative) Normal (Negative) 09/26/2023 9:39 PM [facility] Bilirubin Urine (mg/dL) Negative Negative 09/26/2023 9:39 PM [facility] Blood, Urine (mg/dL) OVER (>1.0, Large)(A) Negative, 0.03 (Trace) 09/26/2023 9:39 PM [facility] Nitrite Urine Negative Negative 09/26/2023 9:39 PM [facility] Leukocyte Esterase, Urine (Ant/uL) 500 (Large)(A) Negative, 25 (Trace) 09/26/2023 9:39 PM [facility] Red Blood Cells >180(H) 0 - 3 /HPF 09/26/2023 9:39 PM [facility] White Blood Cells 116(H) 0 - 5 /HPF 09/26/2023 9:39 PM [facility] Squamous Epithelial Cells Occasional None Seen, Occasional, Few /HPF 09/26/2023 9:39 PM [facility] Mucus Present(A) None Seen /HPF 09/26/2023 9:39 PM CDT [facility] Urine Source Clean Catch 09/26/2023 9:39 PM CDT [facility] Urine URINE SPECIMEN COLLECTION, CLEAN CATCH / Unknown Non-blood Collection / Unknown 09/26/2023 9:02 PM CDT 09/26/2023 9:07 PM CDT Narrative [facility] - 09/26/2023 9:39 PM CDT The qualitative interpretive guidance provided (e.g., small, moderate, large) is intended to aid in quantitative result interpretation. It is not itself an FDA-cleared test result. Grey Espinosa PA-C LAB_1 [place] [address], [facility] documented in this encounter Visit Diagnoses [...] Coronary atherosclerosis of unspecified type of vessel, nome or graft Essential hypertension (HRC) Unspecified essential hypertension Left ureteral stone * Plan of Care - Enedina Martin RN - 09/30/2023 12:10 PM CDT [facility] Discharge Note - Nursing Admission Date/Time: 09/26/2023 7:33 PM Attending MD: Simran Kunz APRN, ENVIRONMENTAL TEST TECHNICIAN Patient discharged: to Home. Discharge Date: 09/30/2023 [...] Castillo LSW - 09/30/2023 11:36 AM CDT [facility] Care Management Screening Insurance Coverage: Payor: [facility] / Plan: [facility] PLUS / Product Type: Medicaid / Primary [...] to patient's [facility] MYCHAL Stern PH: [phone]. SW able to leave a message to Leena regarding patient's admission date and discharge of today. Please consult if additional needsdo arise. BIBIANA Peterson * Plan of Care - Natalia Solis RN - 09/30/2023 2:51 AM CDT Pt alert, awake and oriented x3. Disoriented to situation. Communicated via iPad die finisher forging. Reoriented as needed. Explained POC. Denies pain, SOB and N/V/D. IV LR infusing at 75 ml/hr. Up to the BRwith A1, GB and walker. * Plan of Care - Oliver Evans RN - 09/29/2023 10:56 PM CDT [facility] Plan of Care Note Pt is alert and oriented with some confusion to time noted. Pt is calm and cooperative with cares. Son present for communication and ipad die finisher forging used after family left. Pt reported pain and received PRN tylenol. PRN was effective. Denies N/V, SOB. IV LR infusing at 75 ml/hr. Pt went for surgery this shift and post-op vitals obtained. VS stable on RA. Call light and alarms in place for safety. --- End of Report ---[facility]. Practitioner Notified Note Name [...] RN - 09/29/2023 1:40 PM CDT ong die finisher forging used for assessment/cares. Pt A&Ox3, disoriented to [...] Sebastian RN - 09/29/2023 6:18 AM CDT [employer] utilized w/ encounters. Patient A/O x3. VSS [...] on. Pt is Hmong speaking and requires die finisher forging. * Plan of Care - Brea Muir Jeanne - 09/28/2023 2:21 PM CDT Patient is A&O x3, disoriented to time. Needs [facility] die finisher forging. Heart rate is cecilia in the 50's, [...] alarm on for safety. Assumed cares from [phone] * Plan of Care - Renetta Castillo LSW - 09/28/2023 11:16 AM CDT [facility] Care Management Screening Insurance Coverage: Payor: [facility] / Plan: [facility] USP PLUS / Product Type: Medicaid [...] to time, Hmong speaking only - iPad die finisher forging used and family helping to interpret per [...] Haque RN - 09/27/2023 2:34 PM CDT [facility] Plan of Care Note Assumed [...] and Intervention: Triage: Yellow Bands and Non-slip county director welfare footwear documented in this encounter Administered Medications [...] (SUBLIMAZE) injection 25-50 mcg 25-50 mcg, Intravenous, [id number], Pain, Starting on Wed09/29/23 at 1925, Until [...] (NORMODYNE) injection 5 mg 5 mg, Intravenous, [id number], Blood Pressure >, Starting on Wed09/29/23 at [...] in Manage Orders - Provider: Inpatient Template [employer]) cyanocobalamin (VITAMIN B12) tablet 1,000 mcg 1,000 [...] RN) 0857 (Given - Provider: Kelly Auguste, RN)1614 (Given - Provider: Oliver Evans RN) [...] (SUBLIMAZE) injection 25-50 mcg 25-50 mcg, Intravenous, [id number], Pain, Starting on Wed09/29/23 at 1925, Until [...] (NORMODYNE) injection 5 mg 5 mg, Intravenous, [id number], Blood Pressure >, Starting on Wed09/29/23 at 1925, Until Julianna 09/30/23 at 1615, Must call anesthesia before initiating medication. Give q 5 minutes PRN up to 25 mg. (PACU use only), PACU (only) lubricant (SURGILUBE/KY JELLY) gel ONCE PRN, Starting on Wed09/29/23 at 1757, Intra-op 175 (Given - Provider: Jose Gee [...] Practitioner. documented in this encounter Care Teams Spout Tender Relationship Specialty Start Date End Date No Primary/Referring, Phy PCP - General 08/26/23 documented as of this encounter
--- OUTSIDE RECORDS SUMMARY | 2024-01-05 09:52 | XMS_ITS | Clinical Summary ---
Author Organization [facility] Address [address], [place] [address] Care Team Providers Care Dividing Machine Operator Helper Name Role Phone No Primary/Referring, Laureny Primary Care Provider Unavailable Source Comments You are receiving this document as you are listed as the primary care provider,follow-up provider, or the patient has been referred to you for consultation.This is in compliance with the Medicare and[facility] EHR Incentive Program,which states Providers who transition their patient to another setting of careor provider of care or refers their patient to another provider of care shouldprovide summary care record for each transition of care or referral. [facility] Allergies No known active allergies [...] vein harvest (left leg) per Dr. Lino Social History Tobacco Use Types Packs/Day Years Used Date Smoking Tobacco: Never Smokeless Tobacco: Never Tobacco Cessation:Counseling Given: Not Answered [facility] Utilities Answer Date Recorded In the past 12 months has th e [employer], gas, oil, or water [employer] threatened to shut off services in your [...] place to sleep or slept in a alf (including now)? No 09/27/2023 Sex and Gender [...] of 2) 1994 Dexa 2009 COVID-19 Vaccine ( season) 2023 08/31/2020, 08/10/2020 Influenza (#1) 2024 04/15/2020, 02/27, 04/11/2018, Additional history exists DTaP/Tdap/Td (2 - Tdap) 11/18/2030 11/19/19, 03/17/2000, 10/25/1981, Additional history exists Pneumococcal 65+ [...] this topic Medical Devices Implanted Type Area Passenger Car Cleaning Supervisor Device Identifier Shelf Expiration Date Model / Serial / Lot Stent Ureteral Ultra 6x22 - Polaris - [id number] Implanted:Qty: 1 on 09/29/2023 by Jose Gee MD at [facility] DEVICE Left: [employer] 05/14/2026 [id number] / / [id number] Explanted Type Area Passenger Car Cleaning Supervisor Device Identifier Shelf Expiration Date Model / Serial / Lot Stent Ureteral Ultra 6x22 - Polaris - [id number] Implanted:Qty: 1 on 08/27/2023 by Mira Price MD at [facility] Explanted:Qty: 1 on 09/29/2023 by Jose Gee MD at [facility] DEVICE Left: [employer] 04/01/2026 [id number] / / [id number] Advance Directives * Full Code (Latest Code [...] 3:52 AM 08/27/2023 5:53 AM Care Teams Dividing Machine Operator Helper Relationship Specialty Start Date End Date No Primary/Referring, Phy PCP - General 08/26/23
--- OUTSIDE RECORDS SUMMARY | 2024-01-05 09:52 | XMS_ITS | Encounter Summary ---
Author Organization [facility] Address [address], [place] [address] Care Team Providers Care Aquatic Director Name Role Phone No Primary/Referring, Phy [...] Expiration Date Visits Re quested Visits Authorized [id number] 1 1 Encounter Details Date Type Department Care Team (Late st Contact Info) Description 09/29/2023 5:30 PM CDT Ancillary Procedure [facility] [address] [place] [address] Social History Tobacco Use Types Packs/Day Years Used Date Smoking Tobacco: Never Assessed [facility] Utilities Answer Date Recorded In the past 12 months has [facility] electric, gas, oil, or water company [...] place to sleep or slept in a retirement (including now)? No 09/27/2023 Sex and Gender [...] 7:29 PM CDT Fluoroscopy provided by a sonography technologist. Exact fluoroscopy time is documented in end of exam information in EPIC Simran Kunz APRN, AED TRAINER RAD GD documented in this encounter Visit Diagnoses Not on filedocumented in this encounter Care Teams Aquatic Director Relationship Specialty Start Date End Date No Primary/Referring, Phy PCP - General 08/26/23 documented as of this encounter
--- OUTSIDE RECORDS SUMMARY | 2024-01-05 09:52 | XMS_ITS | Encounter Summary ---
Author Organization [facility] [facility] Address [address] [address] Care Team Providers Care Ophthalmic Surgeon Name Role Phone No Primary/Referring, Phy Primary [...] Expiration Date Visits Re quested Visits Authorized [id number] 1 1 Encounter Details Date Type Department Care Team (Late st Contact Info) Description 09/29/2023 6:32 PM CDT Anesthesia Event [facility] Operating Room [address] [place] [address] Jr Zheng MD [address] [place] [address] Anesthesia Record Procedure Summary Procedure Name Responsible [...] by Jimena Peraza APRN, CRNA 1940 An [facility] Care transferre d. Meds Name Total fentaNYL [...] Years Used Date Smoking Tobacco: Never Assessed [facility] Utilities Answer Date Recorded In the [...] place to sleep or slept in a nursing home (including now)? No 09/27/2023 Sex and Gender Information Value Date Recorded Sex Assigned at Not on file Gender Identity Not on file Sexual Orientation Not on file documented as of this encounter Miscellaneous Notes * Anesthesia Postprocedure Evaluation - Jr Zheng MD - 09/29/2023 7:54 PM CDT [facility] Anesthesia Post-op Note Patient: Sendy Moses [...] Zheng MD - 09/29/2023 6:32 PM CDT [facility] Anesthesia Pre-op Evaluation Procedure: Thulium LASER CYSTOSCOPIC [...] QT 506 ms QTc 488 ms P [place] 102 degrees R [place] 46 degrees T [place] -27 degrees Physical Exam: BP 111/62 (BP [...] mg documented in this encounter Care Teams Ophthalmic Surgeon Relationship Specialty Start Date End Date No Primary/Referring, Phy PCP - General 08/26/23 documented as of this encounter
--- OUTSIDE RECORDS SUMMARY | 2024-01-05 09:52 | XMS_ITS | Encounter Summary ---
Author Organization [facility] Address [address], [place] [address] Care Team Providers Care Sprinkler Inspector Name Role Phone No Primary/Referring, Phy Primary Care Provider Unavailable Reason for Referral * Procedure/Equipment (Routine) - Incomplete Specialty Diagnoses / Procedures Referred By Alfonso killian Referred To Contact Diagnoses Nephrolithiasis Procedures US Renal W Bladder Masha Sheppard PA-C [address] [place] [address] Referral ID Status Reason Start Date Expiration Date V isits Requested Visits Authorized [id number] Incomplete 11/04/2023 02/02/2025 1 1 Reason for Visit * Reason Comments POST-OP,EXAM Encounter Details Date Type Department Care Team (Latest Contact Info) Description 10/05/2023 10:00 AM CDT Office Visit Specialty Center [address] [place] [address]. [place] [address] Masha Sheppard PA-C [address] [place] [address] Nephrolithiasis (Primary Dx) Social History Tobacco Use Types Packs/Day Years Used Date Smoking Tobacco: Never Smokeless Tobacco: Never Tobacco Cessation:Counseling Given: Not Answered [facility] Utilities Answer Date Recorded In the past 12 months has [employer] electric, gas, oil, or water company threatened [...] for kidney stones. Add fresh lemon or [place]addo juice to your water. These fruits are [...] 5 to 10 minutes. Cystoscopy ?? 2009 [facility], U.[place]. Govt. has certain rights The cystoscope [...] responsible for your urologic care at [facility]. Lab or Imaging Results If labs were ordered, you will receive the results via your InSp[employer]) account if you have one. Results are automatically released to your [employer] ([employer]) account once available. This means that you may see your results before we have had a chance to review them. After the results become available, comments from our team are typically posted to your [employer] account within 2-5 business days. We usually wait until all or nearly all of the lab results have returned and make a onetime comment rather than comment on each lab result individually. Please donot send a [employer] message requesting follow up/advice on labs or [...] you. If you do not have a [employer] account, results typically arrive by mail within [...] you! Get Cost of Care Estimates - [phone] The health insurance marketplace has changed dramatically in the last few years. Our cost of care service will provide estimates over the phone for treatments or procedures billed through [facility] [employer] [facility]. To receive a cost estimate, simply call [phone] during regular business hours. If you have [...] but this was not performed due to seed production field supervisor did not have a phone number for the patient/son. She returned to [facility] 09/26/23 with severe flank pain and pyuria. During that admission she had ureteroscopy, laser lithotripsy, and ureteral stent placement. Patient is seen with professional phone hourly sign language interpreter. Family present for support but patient requested [...] constraints on scheduling that. Ultimately, through the hourly sign language interpreter, patient voiced her consent to proceed. ROSY [...] present for this procedure as a female die mechanic. After sterile prep of the external genitalia a 16F flexible cystoscope was advanced into the bladder under direct vision. The urethra was unremarkable. The bladder was carefully evaluated and found to be free of tumor or stone. No diverticula noted. The [facility] It was grasped and removed without [...] kidney documented in this encounter Care Teams Sprinkler Inspector Relationship Specialty Start Date End Date No Primary/Referring, Phy PCP - General 08/26/23 documented as of this encounter
--- OUTSIDE RECORDS SUMMARY | 2024-01-05 09:53 | XMS_ITS | Encounter Summary ---
Author Organization [facility] Address [address], [place] [address] Care Team Providers Care Supervisor Brake Repair Name Role Phone No Primary/Referring, Phy Primary [...] Expiration Date Visits Re quested Visits Authorized [id number] 1 1 Encounter Details Date Type Department Care Team (Late st Contact Info) Description 09/26/2023 8:00 PM CDT Ancillary Procedure [facility] [address] [address] Social History Tobacco Use Types Packs/Day Years Used Date Smoking Tobacco: Never Assessed [facility] Utilities Answer Date Recorded In the past 12 months has [facility] electric, gas, oil, or water company threatened [...] place to sleep or slept in a residential (including now)? No 09/27/2023 Sex and Gender [...] mL documented in this encounter Care Teams Supervisor Brake Repair Relationship Specialty Start Date End Date No Primary/Referring, Phy PCP - General 08/26/23 documented as of this encounter
--- OUTSIDE RECORDS SUMMARY | 2024-01-05 09:53 | XMS_ITS | Encounter Summary ---
Author Organization [facility] Address [address] [place] [address] Care Team Providers Care Water Jet Operator Name Role Phone No Primary/Referring, Phy Primary Care Provider Unavailable Encounter Details Date Type Department Care Team (Late st Contact Info) Description 09/27/2023 Telephone Specialty Center [facility] [address] [facility] [place], [place] [id number] Jenna Fermin PA-C [address] [place] [address] Social History Tobacco Use Types Packs/Day Years Used Date Smoking Tobacco: Never Assessed [facility] Utilities Answer Date Recorded In the past 12 months has [facility] electric, gas, oil, or water [employer] threatened to shut off services in your [...] place to sleep or slept in a long term (including now)? No 09/27/2023 Sex and Gender [...] on filedocumented in this encounter Care Teams Water Jet Operator Relationship Specialty Start Date End Date No Primary/Referring, Phy PCP - General 08/26/23 documented as of this encounter
--- OUTSIDE RECORDS SUMMARY | 2024-01-05 09:53 | XMS_ITS | Clinical Summary ---
Author Organization [facility] Address [place], [place] [address] Care Team Providers Care Powder Cutting Operator Name Role Phone John San MD Primary Care Provider [phone] Allergies No known active allergies Medications Medication Sig Dispensed Refills Start Date End Date Status furosemide (LASIX) 20 mg tablet Take 1 tablet by mouth every morning. 0 0 Active clopidogreL (PLAVIX) 75 mg tabletIndications: NSTEMI (non-ST elevated myocardial infarction) (HC) Take 1 Tablet (75 mg) by mouth once daily. Take for 1 year or otherwise directed by your deputy probation officer 30 Tablet 3 Active lisinopriL (PRINIVIL; ZESTRIL) 2.5 mg tablet Take 2.5 mg by mouth once daily. Active metoprolol succinate SR (TOPROL XL) 12.5 mg as half tablet Take 12.5 mg by mouth once daily. Active oxyCODONE (ROXICODONE) 5 mg immediate release tabletIndications: Nephrolithiasis Take ONE-HALF Tablet (2.5 mg) by mouth every 4 hours if needed for Pain (For moderate to severe pain.). 5 Tablet 4 Active cefdinir (OMNICEF) 300 mg capsuleIndications :Nephrolithiasis,B acteremia Take 1 Capsule (300 mg) by mouth two times daily for 10 days. 20 Capsule 4 024 Active nitroglycerin (NITROSTAT) 0.[address] 0.4 mg under the tongue every 5 minutes if needed for Chest Pain. 4 7 024 Discontinued( Pharmacist change per medication history (E-cancel not sent)) aspirin (ECOTRIN) 81 mg enteric coated tablet 4 7 024 Discontinued( Pharmacist change per medication history (E-cancel not sent)) metoprolol succinate (TOPROL XL) 25 mg Sustained-Release tablet Take 12.5 mg by mouth two times daily. 024 Discontinued( Pharmacist change per medication history (E-cancel not sent)) pantoprazole (PROTONIX) 40 mg delayed-release tablet Take 40 mg by mouth once daily. 024 Discontinued( Pharmacist change per medication history (E-cancel not sent)) methyl salicylate-menthol (LALITHA MARINO; MENTHOLATUM DEEP HEAT) 15-10 % topical cream Apply topically to affected area(s) 3 times daily if needed (Applies to neck, legs, hands, arms). 024 Discontinued( Pharmacist change per medication history (E-cancel not sent)) acetaminophen (TYLENOL) 325 mg tablet Take 650 mg by mouth every 4 hours if needed for Pain. Max acetaminophen dose: 4000mg in 24 hrs. 024 Discontinued( Pharmacist change per medication history (E-cancel not sent)) evolocumab (Repatha SureClick) 140 mg/mL subcutaneous pen injectorIndication s:Hyperlipidemia, unspecified hyperlipidemia type Inject 1 mL (140 mg) subcutaneous every 2 weeks. Inject into abdomen, thigh, or upper arm; rotate injection sites. 6 mL 3 024 Discontinued( Pharmacist change per medication history (E-cancel not sent)) rosuvastatin (Crestor) 10 mg tablet Take 10 mg by mouth at bedtime. 024 Discontinued( Pharmacist change per medication history (E-cancel not sent)) Active Problems Problem Noted Date Diagnosed Date [...] (left leg) per Dr. Lino Hyperglycemia post CO 02/06/2010 CAD sp NSTEMI (non-ST elevated myocardial infarc tion) 02/05/2010 Overview: - 02/05/10 presented to [place] ED with severe SOTO, developed chest pain, EKG showed anterolateral ST/T changes, and high troponins, transferred to [facility] 02/05/10 for further evaluation - 02/05/10 Angio: [...] CDT - 12/24/2023 3:51 PM CDT Surgery [facility] [address] [place] [address] Chriss Stock MD CYSTOSCOPY LEFT RETROGRADE LEFT STENT PLACEMENT 12/24/2023 2:08 PM CDT Anesthesia Event [facility] [address] [place] [address] Aneesh Mora MD Kushins, Jose Young MD 12/24/2023 1:45 AM CDT - 12/27/2023 5:10 PM CDT Hospital Encounter [facility] [address] [place] [address] [facility], [facility] Of Oswald Bhatt MD Brandt, MD Madeline Garcia Jimmy, MD Nephrolithiasis (Primary Dx); Bacteremia Discharge Disposition: Home Self Care from Last 3 Months Immunizations Name Administration [...] Sign Reading Time Taken Comments Blood Pressure 118/57 12/27/2023 7:54 AM CDT Pulse 58 12/27/2023 7:54 AM CDT Temperature 36.8 ??C (98.2 ??F) 12/27/2023 1:43 AM CD T Respiratory Rate 18 12/27/2023 7:54 AM CDT Oxygen Saturation 96% 12/27/2023 7:54 AM CDT Inhaled Oxygen Concentration - - Weight 60.3 kg (132 lb 14.4 oz) 12/26/2023 5:12 AM CDT Height 139.7 cm (4' 7) 11/12/2022 10:4 5 AM CDT Body Mass Index 30.89 11/12/2022 10:45 AM CDT Plan of Treatment Upcoming Encounters Date Type Department Care Team (Latest Contact Info) Description 01/17/2024 10:59 AM CDT Hospital Encounter [facility] [address] [place] [address] Chriss Stock MD [address] [place] [phone] 01/17/2024 10:59 AM CDT - 01/17/2024 1:16 PM CDT Surgery [facility] [address] [place] [address] Chriss Stock MD [address] [place] [phone] CYSTOSCOPY, LEFT URETEROSCOPY, HOLMIUM LASER LITHOTRIPSY Scheduled Procedures Name Priority Associated Diagnoses Date/Ti me CYSTOSCOPY URETEROSCOPY LASER Elective KIDNEY STONES 01/17/2024 10:59 AM CDT CYSTOSCOPY EXCHANGE URETERAL STENT Elective KIDNEY STONES 01/17/2024 10:59 AM CDT Health Maintenance Due Date Last Done Comments [...] 02/27/2024 03/18/2010 Medical Devices Implanted Type Area Tool Hardener Device Identifier Shelf Expiration Date Model / Serial / Lot Iol Sullivan +24.5 Tecnis Zcb00 - [id number] Implanted:Qty: 1 on 08/25/2017 by Chidi Hadley MD at [facility] Left: Eye [employer] 06/11/2021 ZCB00# / [id number] / Iol Sullivan +24.5 Tecnis Zcb00 - [id number] Implanted:Qty: 1 on 2017 by Chidi Hadley MD at [facility] Right: Eye [employer] 05/31/2021 ZCB00# / [id number] / Stent Uret [id number] Contour - [id number] Implanted:Qty: 1 on 12/24/2023 by Chriss Stock MD at [facility] Left: Ureter [employer] 09/02/2026 [id number] / / [id number] Procedures Procedure Name Priority Date/Time Associated Diagnosis Comments SCAN CORRESP-LABORATORY RESULTS 12/30/2023 2:13 PM CDT SCAN CORRESP-LABORATORY RESULTS 12/29/2023 2:49 PM CDT BLOOD CULTURE Timed 12/27/2023 7:18 AM CDT BLOOD CULTURE Timed 12/26/2023 7:20 AM CDT CBC W PLT NO DIFF Early AM 12/26/2023 7:2 0 AM CDT BASIC METABOLIC PANEL Early AM 12/26/2023 7:20 AM CDT ECHO TTE COMPLETE WO CONTRAST LINDA 12/25/2023 11:11 AM CDT XR RETROGRADE PYELOGRAM W/WO KUB Routine 12/24/2023 2:52 PM CDT SUPRAGLOTTIC-LMA Routine 12/24/2023 2:21 PM CDT CYSTOSCOPY PLACEMENT URETERAL STENT RETROGRADES Class D Urgent 12/24/2023 1:48 PM CDT Stent placed SCAN CORRESP-EKG RESULTS 12/24/2023 10:21 AM CDT SCAN CORRESP-IMAGING 12/24/2023 10:21 AM CDT XR CHEST 1 VIEW PORTABLE STAT 12/24/2023 9:12 AM CDT CBC W PLT NO DIFF Early AM 12/24/2023 7:0 0 AM CDT BASIC METABOLIC PANEL Early AM 12/24/2023 7:00 AM CDT SCAN-CARDIAC STRIP 12/24/2023 12 :00 AM CDT from Last 3 Months Results * SCAN CORRESP-LABORATORY RESULTS (12/30/2023 2:13 PM CDT) Only the most recent of2 resultswithin the time period is included. Narrative 12/30/2023 2:13 PM CDT Ordered by an unspecified provider. Other Clinical Staff OTHER * BLOOD CULTURE DAILY (12/27/2023 7:18 AM CDT) Only the most recent of2 resultswithin the time period is included. CULTURE No Growth. 12/31/2023 9:24 AM CDT [facility] Blood BLOOD SPECIMEN / Unknown Venipuncture / Unknown 12/27/2023 7:18 AM CDT 12/27/2023 7:27 AM CDT Narrative [facility] - 12/31/2023 9:24 AM CDT Low volume blood culture received; possible false negative culture. Jose Luis Jackson MD MICROBIOLOGY [facility] [address] [place] [address], * (ABNORMAL) CBC no diff AM (12/26/2023 7:20 AM CDT) Only the most recent of2 resultswithin the time period is included. WHITE BLOOD COUNT 9.7 4.5 - 11.0 thou/cu mm 12/26/2023 7:56 AM CDT [facility] RED BLOOD COUNT 4.24 4.00 - 5.20 mil/cu mm 12/26/2023 7:56 AM CDT [facility] HEMOGLOBIN 11.1(L) 12.0 - 16.0 g/dL 12/26/2023 7:56 AM CDT [facility] HEMATOCRIT 36.8 33.0 - 51.0 % 12/26/2023 7:56 AM CDT [facility] MCV 87 80 - 100 fL 12/26/2023 7:56 AM CDT [facility] MCH 26.2 26.0 - 34.0 pg 12/26/2023 7:56 AM CDT [facility] MCHC 30.2(L) 32.0 - 36.0 g/dL 12/26/2023 7:56 AM CDT [facility] RDW 16.0(H) 11.5 - 15.5 % 12/26/2023 7:56 AM CDT [facility] PLATELET COUNT 142 140 - 440 thou/cu mm 12/26/2023 7:56 AM CDT [facility] MPV 10.5 6.5 - 11.0 fL 12/26/2023 7:56 AM CDT [facility] NRBC 0.0 % 12/26/2023 7:56 AM CDT [facility] ABS NRBC 0.0 thou /cu mm 12/26/2023 7:56 AM CDT [facility] Blood BLOOD SPECIMEN / Unknown Butterfly / Unknown 12/26/2023 7:20 AM CDT 12/26/2023 7:41 AM CDT Jose Luis Jackson MD HEMATOLOGY [facility] [address] [place] [address], * (ABNORMAL) Basic metabolic panel AM (12/26/2023 7:20 AM CDT) Only the most recent of2 resultswithin the time period is included. SODIUM 140 136 - 145 mmol/L 12/26/2023 8:15 AM T [facility] POTASSIUM 4.0 3.5 - 5.1 mmol/L 12/26/2023 8:15 AM T [facility] CHLORIDE 106 98 - 107 mmol/L 12/26/2023 8:15 AM T [facility] CO2,TOTAL 26 22 - 29 mmol/L 12/26/2023 8:15 AM T [facility] ANION GAP 8 5 - 18 12/26/2023 8:15 AM T [facility] GLUCOSE 116(H) 70 - 99 mg/dL 12/26/2023 8:15 AM T [facility] CALCIUM 8.7(L) 8.8 - 10.2 mg/dL 12/26/2023 8:15 AM T [facility] BUN 17 8 - 23 mg/dL 12/26/2023 8:15 AM T [facility] CREATININE 0.78 0.50 - 0.90 mg/dL 12/26/2023 8:15 AM T [facility] BUN/CREAT RATIO 22(H) 10 - 20 8:15 AM T [facility] eGFR 77(L) >90 mL/min/1.7 3m2 12/26/2023 8:15 AM CDT [facility] Comment:As of 2021, eG [...] Jose Luis Jackson MD CHEMISTRY [facility] [address] [place] [address], * ECHO TTE COMPLETE WO CONTRAST (12/25/2023 11:11 AM CDT) AORTIC VALVE MEAN PG 8 mmHg EJECTION FRACTION 66 % PEAK TR VELOCITY 2.8 m/s LVEDD 4.7 cm MITRAL VALVE MR ERO 33 mm2 Anatomical Region Laterality Modality Ultrasound 12/25/2023 7:22 AM CDT Narrative 12/25/2023 11:19 AM CDT ECHOCARDIOGRAM PILAR MESSINA ? Accession#: ?? [id number] : ?1945 78 years Study Date: ?? 12/25/2023 7:22:49 AM Gender: F ?BP: ? 100/55 mmHg Height: 139.00 cm ?BSA: ?1.46 m? ? ? Weight: 60.00 kg ? Tech: ? MH ? Referring MD: JOSE LUIS JACKSON Site: ? [facility] Reading Location: [facility] Patient Location: Inpatient. Procedure: 2D, Color Doppler [...] . This study was interpreted by an [facility] accredited facility. ??Final ?? Procedure Note Abram Holt MD - 12/25/2023 ECHOCARDIOGRAM PILAR MESSINA : 1945 78 years Study Date: 12/25/2023 7:22:49 AM Gender: F BP: 100/55 mmHg Height: 139.00 cm BSA: 1.46 m? ? ? Weight: 60.00 kg Tech: Referring MD: JOSE LUIS JACKSON Site: [facility] Reading Location: [facility] Patient Location: Inpatient. Procedure: 2D, Color Doppler [...] . This study was interpreted by an [facility] accredited facility. Final Jose Luis Jackson MD [...] @ Dec 24 2023 ??9:23AM (Electronically Signed) [email or web address] Narrative 12/24/2023 9:23 AM CDT For Patients: [...] @ Dec 24 2023 9:23AM (Electronically Signed) [email or web address] Jose Luis Jackson MD GENERAL IMAGING * SCAN-CARDIAC STRIP (12/24/2023 12:00 AM CDT) Narrative 12/24/2023 12:00 AM CDT Ordered by an unspecified provider. Other Clinical Staff OTHER from Last 3 Months Advance Directives * Full Code (Latest Code Status on File) Date Activated Date Inactivated Comments 12/24/2023 2:29 AM 12/27/2023 7:10 PM Question Answer Comments Code Status Discussion: [...] 1:32 PM 2017 6:01 PM Care Teams Powder Cutting Operator Relationship Specialty Start Date End Date John San MD [address] [place] [phone] PCP - General Family Practice 11/12/22
--- OUTSIDE RECORDS SUMMARY | 2024-01-05 09:53 | XMS_ITS | Encounter Summary ---
Author Organization [facility] Address [address], [place] [address] Care Team Providers Care Cooker Helper Name Role Phone No Primary/Referring, Phy Primary Care Provider Unavailable Encounter Details Date Type Department Care Team (Latest Contact Info) Description 09/26/2023 Orders Only HIM DEPARTMENT Provider, [place] [address] Social History Tobacco Use Types Packs/Day Years Used Date Smoking Tobacco: Never Assessed [facility] Utilities Answer Date Recorded In the past 12 months has e electric, gas, oil, or water [employer] threatened to shut off services in your [...] filedocumented in this encounter Care Teams Cooker Helper Relationship Specialty Start Date End Date No Primary/Referring, Phy PCP - General 08/26/23 documented as of this encounter
--- OUTSIDE RECORDS SUMMARY | 2024-01-05 09:53 | XMS_ITS | Encounter Summary ---
Author Organization [facility] Address [address] [address] Care Team Providers Care Material Scheduler Name Role Phone No Primary/Referring, Phy Primary [...] Expiration Date Visits Re quested Visits Authorized [id number] 1 1 Encounter Details Date Type Department Care Team (Late st Contact Info) Description 09/29/2023 5:45 PM CDT - 09/29/2023 7:15 PM CDT Surgery Operating Room [address] [place] [id number] Jose Gee MD [address] [place] [address] [id number] Thulium LASER CYSTOSCOPIC REMOVAL URETERAL STONE WITH LEFT URETERAL STENT EXCHANGE, LEFT RETROGRADE PYELOGRAM, STONE BASKET EXTRACTION Social History Tobacco Use Types Packs/Day Years Used Date Smoking Tobacco: Never Assessed [facility] Utilities Answer Date Recorded In the past 12 months has th e electric, gas, oil, or water [employer] threatened to shut off services in your [...] encounter Discharge Summaries * Simran Kunz, SHAYNE, ASSEMBLER FLEXIBLE LEADS - 09/30/2023 11:54 AM CDT [facility] Medicine Discharge Summary Patient ID: Pilar Messina [id number] 78 y.o. 1945 Admit date: 09/26/2023 Discharge [...] Her son by the bedsideinterpreting, declines professional geodetic survey director. Reports pain is similar to prior ureteral colic, not resolved completely since her discharge. She was supposed to follow with urology 2-4 weeks after stent was placed but this has not happened yet. She reports her pain was worse over the last 1 week so they went to outside hospital at [place] and she was prescribed oral antibiotics and referred to [facility]. Reports associated dysuria but denies any [...] 04 at 10 am. - Discussed with [email or web address] geodetic survey director discharge instructions and with family Acute on [...] Your Medications These medications were sent to [facility] [address] [place] [id number] Hours: Open 24x7 acetaminophen 325 MG tablet [...] Sheppard PA-C [facility] [id number] Significant Diagnostic Studies (imaging, labs, micro, etc), [...] 35 minutes including, but not limited to, [id number] time spent reviewing records, counseling, and coordination of care. Simran Kunz APRN, CNP [facility] Medicine documented in this encounter [...] and exam is facilitated by the professional [facility] geodetic survey director, via iPad Language Line, to assist in [...] CABG 2009, s/p CRYSTAL x4, 10/2022: Hold FOUNDRY WORKER GENERAL Plavix for upcoming procedure, continue ASA and [...] Care: Full Simran Kunz APRN, CNP Hospitalist, [facility] * Antonina Potts PA-C - 09/29/2023 8:04 [...] with any questions. Antonina Potts PA-C [facility]/29/23 8:05 AM * Millie Morales [...] CABG 2009, s/p CRYSTAL x4, 10/2022: Hold FOUNDRY WORKER GENERAL Plavix for upcoming procedure, continue ASA and [...] Care: Full Simran Kunz APRN, CNP Hospitalist, [facility] * Gordon Lama APRN, CNP [...] CABG 2009, s/p CRYSTAL x4, 10/2022: Hold FOUNDRY WORKER GENERAL Plavix for upcoming procedure, continue ASA and [...] Care: Full Gordon Lama APRN, DNP Hospitalist, [facility] Pager: [phone] documented in this encounter Procedure Notes * Jose Gee MD - 09/30/2023 12:00 AM CDT NAME: PILAR MESSINA CSN: [id number] OPERATIVE REPORT DATE OF SURGERY: 09/29/2023 : 1945 SURGEON: JOSE GEE MD PREOPERATIVE DIAGNOSES: 1. Previous stenting for a left obstructing ureteral stone. 2. Recent admission for sepsis and urinary tract infection. POSTOPERATIVE DIAGNOSES: 1. Previous stenting for a left obstructing ureteral stone. 2. Recent admission for sepsis and urinary tract infection. OPERATION PERFORMED: Left ureteroscopy with laser lithotripsy and stent replacement. RETAIL COVERAGE MERCHANDISER: None. ANESTHESIA: General endotracheal. ESTIMATED BLOOD LOSS: [...] case was begun by inserting a 22- Montserratian rigid cystoscope into the bladder under direct [...] week for stent removal. MD ALEKSEY TANNER/SABIHA /[id number] documented in this encounter Consult Notes * [...] but this was not performed due to live truck technician did not have a phone number for the patient/son. She presented to [facility] yesterday for evaluation of left abdominal/flank pain since her last discharge. Her pain had worsened last week and she was evaluated at [place] and prescribed antibioticsand referred to [facility], but transfer request was never completed. [...] 0.9 % 100 mL IVPB 2 g [id number] (NS) Filemon Rachel MD [Held by provider [...] 6 mg Oral At bedtime PRN Filemon Rachle MD metoprolol succinate (TOPROL XL) extended release [...] Resource Strain: High Risk (06/28/2021) Received from [facility] Financial Resource Strain Difficulty of Paying Living [...] CT ABD PELVIS W IV CONT LOCATION: [facility] DATE: 09/26/2023 INDICATION: Left-sided abdominal [...] and exam is facilitated by the professional [facility] geodetic survey director,to assist in providing culturally sensitive care. The remaining interpretation provided by family. Millie Morales PA-C 09/27/2023, 7:48 AM documented in this encounter OR Notes * H&P - Filemon Rachel MD - 09/26/2023 11:58 PM CDT Images from the original note were not included. [facility] Medicine History & Physical Patient name: Pilar Messina : 1945 Date of Admission: 09/26/2023 7:33 PM Date of Service: 09/27/2023 Attending/Staff: Filemon Rachel MD Pharmacy Technician Trainee Used: Her son interpreting by the bedside, declines professional geodetic survey director. Chief Complaint Abdminla pain History of Present Illness 78 y.o. female with PMH of hypertension, CAD, obstructing left ureteral stone with hydronephrosis s/p ureteral stent on 08/27/2023 presents with left side abdominal/flank pain. Her son by the bedsideinterpreting, declines professional geodetic survey director. Reports pain is similar to prior ureteral colic, not resolved completely since her discharge. She was supposed to follow with urology 2-4 weeks after stent was placed but this has not happened yet. She reports her pain was worse over the last 1 week so they went to outside hospital at [place] and she was prescribed oral antibiotics and referred to [facility]. Reports associated dysuria but denies any [...] Resource Strain: High Risk (06/28/2021) Received from [facility] Financial Resource Strain Difficulty of Paying Living [...] results for input(s): PH, PHV, PHCAP, PCO2, IHG2CBV, PCO2V, YNW3NIP, PO2, PO2ART, PO2V, PO2CAP in the last [...] Keep NPO after midnight # Hypertension Continue FOUNDRY WORKER GENERAL metoprolol # CAD s/p CABG 2009, s/p CRYSTAL x, 10/2022 Hold FOUNDRY WORKER GENERAL Plavix, continue ASA and Crestor # Chronic LLE pain Continue FOUNDRY WORKER GENERAL gabapentin # History of HFpEF Not in exacerbation, continue holding Lasix( on hold since last discharge) FEN: NPO, IV LR at 75 mL per/hr PPx: SCDs Lines/Catheters: PIV Level of Care: General care Code Status/Goals of Care: Full code This note may contain text created using speech-recognition software and may contain unintended word substitutions. Filemon Rachel MD [facility] Medicine, [facility] Pager: [phone] documented in this encounter ED Notes * Jimena Delcid RN - 09/27/2023 12:40 AM CDT Patient transported to unit via transport aid * Grey Espinosa PA-C - 09/26/2023 8:07 PM CDT [facility] Emergency Medicine Visit Note Chief Complaint: Abdominal Pain HPI Pilar Messina is a 78 y.o. female that presents to the ED for evaluation of abdominal pain. Patient is here with her son Patricia who serves as brenda geodetic survey director. Patient had a ureteral stent placed in July. She was supposed to have 2 week follow up, but this never happened. Over the last week, patient has been having increased pain, pain with urination, and pain with eating. Patient was recently admitted to [place] for fluids, and antibiotics. Patient denies any [...] appointment never happened. Patient did present to [place], where a transfer request was initiated, but [...] visit, and supervised patient care with the director customer. [KG] 2312 CT Abd Pelvis W IV [...] - 10.5 x10(9)/L 09/30/2023 7:40 AM CDT [facility] RBC 4.33 3.90 - 5.03 x10(12)/L 09/30/2023 7:40 AM CDT [facility] Hemoglobin 11.1(L) 12.0 - 15.5 g/dL 09/30/2023 7:40 AM T [facility] HCT 36.2 34.9 - 44.5 % 09/30/2023 7:40 AM CDT [facility] MCV 83.6 80.0 - 100.0 fL 09/30/2023 7:40 AM CDT [facility] MCH 25.6(L) 27.6 - 33.3 pg 09/30/2023 7:40 AM [facility] MCHC 30.7(L) 31.5 - 35.2 g/dL 09/30/2023 7:40 AM [facility] RDW 14.9 11.9 - 15.5 % 09/30/2023 7:40 AM [facility] Platelets 200 150 - 450 x10(9)/L 09/30/2023 7:40 AM [facility] Automated NRBC 0 <=0 /100 WBC 09/30/2023 7:40 AM [facility] Blood Venipuncture / Unknown 09/30/2023 7:24 AM CDT 09/30/2023 7:33 AM CDT Simran Kunz APRN, ASSEMBLER FLEXIBLE LEADS LAB_[address] [address], [facility] * (ABNORMAL) Basic Metabolic Panel (09/30/2023 7:24 AM CDT) Sodium 140 136 - 145 mmol/L 09/30/2023 8:01 AM [facility] Potassium 4.1 3.5 - 5.1 mmol/L 09/30/2023 8:01 AM [facility] Chloride 106 98 - 109 mmol/L 09/30/2023 8:01 AM [facility] CO2 22 20 - 29 mmol/L 09/30/2023 8:01 AM [facility] Anion Gap 12 7 - 16 mmol/L 09/30/2023 8:01 AM [facility] Calcium 9.2 8.4 - 10.4 mg/dL 09/30/2023 8:01 AM [facility] BUN 11 7 - 26 mg/dL 09/30/2023 8:01 AM [facility] Creatinine 0.71 0.55 - 1.02 mg/dL 09/30/2023 8:01 AM [facility] Glucose 119(H) 70 - 100 mg/dL 09/30/2023 8:01 AM [facility] Comment:The given reference range is for the fasting state. Non-fasting reference range for glucose is 70 - 180 mg/dL. GFR, Estimated >60 >60 mL/min/1.7 3m2 09/30/2023 8:01 AM CDT [facility] Blood Venipuncture / Unknown 09/30/2023 7:24 AM CDT 09/30/2023 7:33 AM CDT Simran Kunz APRN, CNP LAB_1 Performing Organization Address [facility] Co de Phone Number [address] * Glucose, Whole Blood POCT (09/29/2023 7:39 PM CDT) Glucose, Whole Blood 109 70 - 180 mg/dL 09/29/2023 7:41 PM CDT [facility] Performing Location LAB PACU 09/29/2023 7:41 PM CDT [facility] Blood 09/29/2023 7:39 PM CDT 09/29/2023 7:41 PM CDT Simran Kunz APRN, CNP LAB_1 Performing Organization Address [facility] Co de Phone Number [address] * XR C-Arm 1-1.5 Hours (09/29/2023 7:28 PM CDT) Anatomical Region Laterality Modality X-Ray Angiograph y Narrative 09/29/2023 7:29 PM CDT Fluoroscopy provided by a radiology technician. Exact fluoroscopy time is documented in end of exam information in EPIC Simran Kunz APRN, CNP RAD GD * Glucose, Whole Blood POCT (09/29/2023 4:07 AM CDT) Glucose, Whole Blood 98 70 - 180 mg/dL 09/29/2023 4:10 AM CDT [facility] Performing Location LAB C91 09/29/2023 4:10 AM CDT [facility] Blood 09/29/2023 4:07 AM CDT 09/29/2023 4:10 AM CDT Simran Kunz APRN, CNP LAB_1 Performing Organization Address City/[facility]/ZIP Co de Phone Number [address] * IV Insertion, LST Perform (09/28/2023 9:41 AM CDT) IV INSERTION, LST PERFORM (LAB) Done 09/28/2023 12:00 PM [facility] Other Specimen Type IV Start / Unknown 09/28/2023 9:41 AM CDT 09/28/2023 10:02 AM CDT Simran Jeanne Kunz APRN, CNP LAB_1 Performing Organization Address [facility] Co de Phone Number [address] * Basic Metabolic Panel (09/28/2023 7:33 AM CDT) Pathologist [facility] Sodium 140 136 - 145 mmol/L 09/28/2023 8:28 AM [facility] Potassium 4.0 3.5 - 5.1 mmol/L 09/28/2023 8:28 AM [facility] Chloride 108 98 - 109 mmol/L 09/28/2023 8:28 AM [facility] CO2 21 20 - 29 mmol/L 09/28/2023 8:28 AM [facility] Anion Gap 11 7 - 16 mmol/L 09/28/2023 8:28 AM [facility] Calcium 8.8 8.4 - 10.4 mg/dL 09/28/2023 8:28 AM [facility] BUN 10 7 - 26 mg/dL 09/28/2023 8:28 AM [facility] Creatinine 0.72 0.55 - 1.02 mg/dL 09/28/2023 8:28 AM [facility] Glucose 97 70 - 100 mg/dL 09/28/2023 8:28 AM [facility] Comment:The given reference range is for the fasting state. Non-fasting reference range for glucose is 70 - 180 mg/dL. GFR, Estimated >60 >60 mL/min/1.7 3m2 09/28/2023 8:28 AM [facility] Blood Venipuncture / Unknown 09/28/2023 7:33 AM CDT 09/28/2023 7:55 AM CDT Gordon Lama APRN, CNP LAB_[address] * Folate Only (4Hr Fast Recommended) (09/27/2023 2:03 PM CDT) Folate 11.7 >=7.0 ng/mL 09/29/2023 11:57 AM CDT [facility] Blood Venipuncture / Unknown 09/27/2023 2:03 PM CDT 09/27/2023 2:22 PM CDT Gordon Lama APRN, CNP LAB_1 Performing Organization Address City/[facility]/ZIP Co de Phone Number [facility] [address] * (ABNORMAL) Hgb A1C (09/27/2023 7:17 AM CDT) Hemoglobin A1C 6.6(H) <=5.6 % 09/28/2023 10:59 AM CDT [facility] Estimated Average Glucose (Calc) 143 < 117 mg/dL 09/28/2023 10:59 AM CDT [facility] Comment:Estimated average gl ucose (eAG) converts A1c into glucose units (mg/dL) and estimates average glucose over the past approximately 3 months. The eAG reference interval (<117 mg/dL) corresponds to an A1c of <5.7%. Blood Venipuncture / Unknown 09/27/2023 7:17 AM CDT 09/27/2023 7:24 AM CDT Stanley [facility] - 09/28/2023 10:59 AM CDT For patients not previously diagnosed with diabetes: 5.7-6.4%: Increased risk for diabetes 6.5% and greater: Diagnostic for diabetes For patients diagnosed with diabetes: <8.0%: Goal of therapy for ages 18-75 Clinicians may recommend a higher or lower goal for specific individuals. Gordon Lama APRN, CNP LAB_1 Performing Organization Address [facility] Co de Phone Number [facility] [address] * (ABNORMAL) Vitamin B12 Only (09/27/2023 7:17 AM CDT) Vitamin B12 189(L) 213 - 816 pg/mL 09/28/2023 12:02 PM CDT [facility] Blood Venipuncture / Unknown 09/27/2023 7:17 AM CDT 09/27/2023 7:24 AM CDT Narrative [facility] - 09/28/2023 12:02 PM CDT Borderline low serum Vitamin B12 values may not be diagnositic of B12 deficiency (140 to 209 pg/mL). Consider serum methylmalonic acid and homocysteine levels for confirmation. Serum B12 far below normal indicates deficency (<140 pg/mL). Gordon Lama APRN, CNP LAB_1 Performing Organization Address [facility] de Phone Number [facility] [address] * (ABNORMAL) Iron Profile (Iron,TIBC,%Sat.(Calc)) (09/27/2023 7:17 AM CDT) Iron 29(L) 50 - 170 mcg/dL 09/27/2023 1:52 PM T [facility] Transferrin 247 180 - 382 mg/dL 09/27/2023 1:52 PM T [facility] TIBC, Calculated 309 240 - 450 mcg/dL 09/27/2023 1:52 PM [facility] % Saturation, Calculated 9(L) 10 - 50 % 09/27/2023 1:52 PM T [facility] TIBC Interpretation Low iron, normal TIBC, possible iron deficiency. 09/27/2023 1:52 PM CDT [facility] Blood Venipuncture / Unknown 09/27/2023 7:17 AM CDT 09/27/2023 7:24 AM CDT Gordon Katie Lama SANDSTONE INSPECTOR REPAIRER, ASSEMBLER FLEXIBLE LEADS LAB_[address] [address], [facility] * (ABNORMAL) Complete Blood Count-W/Diff (09/27/2023 7:17 AM CDT) WBC 4.2 3.5 - 10.5 x10(9)/L 09/27/2023 7:34 AM [facility] RBC 3.89(L) 3.90 - 5.03 x10(12)/L 09/27/2023 7:34 AM [facility] Hemoglobin 9.9(L) 12.0 - 15.5 g/dL 09/27/2023 7:34 AM [facility] HCT 33.4(L) 34.9 - 44.5 % 09/27/2023 7:34 AM [facility] MCV 85.9 80.0 - 100.0 fL 09/27/2023 7:34 AM [facility] MCH 25.4(L) 27.6 - 33.3 pg 09/27/2023 7:34 AM [facility] MCHC 29.6(L) 31.5 - 35.2 g/dL 09/27/2023 7:34 AM [facility] RDW 15.6(H) 11.9 - 15.5 % 09/27/2023 7:34 AM [facility] Platelets 167 150 - 450 x10(9)/L 09/27/2023 7:34 AM [facility] Automated NRBC 0 <=0 /100 WBC 09/27/2023 7:34 AM [facility] Neutrophil Absolute 2.4 1.7 - 7.0 10(9)/L 09/27/2023 7:34 AM [facility] Lymphocyte Absolute 1.1 1.0 - 4.8 10(9)/L 09/27/2023 7:34 AM [facility] Monocyte Absolute 0.4 0.2 - 0.9 10(9)/L 09/27/2023 7:34 AM [facility] Eosinophil Absolute 0.2 0.0 - 0.5 10(9)/L 09/27/2023 7:34 AM [facility] Basophil Absolute 0.0 0.0 - 0.3 10(9)/L 09/27/2023 7:34 AM [facility] Immature Granulocyte % 0.2 0.0 - 0.5 % 09/27/2023 7:34 AM [facility] Blood Venipuncture / Unknown 09/27/2023 7:17 AM CDT 09/27/2023 7:24 AM CDT Filemon Rachel MD LAB_[address] [address], [facility] * (ABNORMAL) Basic Metabolic Panel (09/27/2023 7:17 AM CDT) Sodium 138 136 - 145 mmol/L 09/27/2023 7:57 AM [facility] Potassium 3.8 3.5 - 5.1 mmol/L 09/27/2023 7:57 AM [facility] Chloride 110(H) 98 - 109 mmol/L 09/27/2023 7:57 AM [facility] CO2 21 20 - 29 mmol/L 09/27/2023 7:57 AM [facility] Anion Gap 7 7 - 16 mmol/L 09/27/2023 7:57 AM [facility] Calcium 8.3(L) 8.4 - 10.4 mg/dL 09/27/2023 7:57 AM [facility] BUN 8 7 - 26 mg/dL 09/27/2023 7:57 AM [facility] Creatinine 0.60 0.55 - 1.02 mg/dL 09/27/2023 7:57 AM [facility] Glucose 96 70 - 100 mg/dL 09/27/2023 7:57 AM [facility] Comment:The given reference range is for the fasting state. Non-fasting reference range for glucose is 70 - 180 mg/dL. GFR, Estimated >60 >60 mL/min/1.7 3m2 09/27/2023 7:57 AM [facility] Blood Venipuncture / Unknown 09/27/2023 7:17 AM CDT 09/27/2023 7:24 AM CDT Filemon Rachel MD LAB_1 Performing Organization Address City/[facility]/ZIP Co de Phone Number [address] * Glucose, Whole Blood POCT (09/27/2023 4:27 AM CDT) Glucose, Whole Blood 111 70 - 180 mg/dL 09/27/2023 4:28 AM CDT [facility] POCT Comment 1 MD/RN Notified 09/27/2023 4:28 AM CDT [facility] Performing Location RCLAB C91 09/27/2023 4:28 AM CDT [facility] Blood 09/27/2023 4:27 AM CDT 09/27/2023 4:28 AM CDT Filemon Rachel MD LAB_1 Performing Organization Address [facility] de Phone Number [address] * CT Abd Pelvis W IV Cont (09/26/2023 10:40 PM CDT) Anatomical Region Laterality Modality Abdomen, Pelvis Computed Tomogra phy 09/26/2023 10:4 0 PM CDT Narrative 09/26/2023 10:55 PM CDT EXAM: CT ABD PELVIS W IV CONT LOCATION: [facility] DATE: 09/26/2023 INDICATION: Left-sided abdominal pain, [...] CT ABD PELVIS W IV CONT LOCATION: [facility] DATE: 09/26/2023 INDICATION: Left-sided abdominal pain, [...] CT * Lipase (09/26/2023 9:48 PM CDT) [facility] Lipase 11 8 - 78 U/L 09/26/2023 10:23 PM CDT [facility] Blood Venipuncture / Unknown 09/26/2023 9:48 PM CDT 09/26/2023 9:53 PM CDT Grey Espinosa PA-C LAB_1 [place] [address], [facility] * (ABNORMAL) Liver Panel (Hepatic Function Panel) (09/26/2023 9:48 PM CDT) Pathologist [facility] Alkaline Phosphatase 124 40 - 150 U/L 09/26/2023 10:23 PM CDT [facility] Bilirubin, Total 0.6 0.2 - 1.2 mg/dL 09/26/2023 10:23 PM [facility] Bilirubin, Direct 0.2 0.0 - 0.5 mg/dL 09/26/2023 10:23 PM [facility] AST (SGOT) 14 10 - 40 U/L 09/26/2023 10:23 PM [facility] ALT (SGPT) 11 <=55 U/L 09/26/2023 10:23 PM [facility] Protein, Total 6.5 6.4 - 8.3 g/dL 09/26/2023 10:23 PM [facility] Albumin 2.8(L) 3.5 - 5.0 g/dL 09/26/2023 10:23 PM [facility] Blood Venipuncture / Unknown 09/26/2023 9:48 PM CDT 09/26/2023 9:53 PM CDT Grey Espinosa PA-C LAB_1 Performing Organization Address [facility]/State/[facility] Co de Phone Number [address] * (ABNORMAL) Basic Metabolic Panel (09/26/2023 9:48 PM CDT) Sodium 137 136 - 145 mmol/L 09/26/2023 10:23 PM [facility] Potassium 3.8 3.5 - 5.1 mmol/L 09/26/2023 10:23 PM [facility] Chloride 107 98 - 109 mmol/L 09/26/2023 10:23 PM [facility] CO2 20 20 - 29 mmol/L 09/26/2023 10:23 PM [facility] Anion Gap 10 7 - 16 mmol/L 09/26/2023 10:23 PM [facility] Calcium 8.8 8.4 - 10.4 mg/dL 09/26/2023 10:23 PM [facility] BUN 11 7 - 26 mg/dL 09/26/2023 10:23 PM [facility] Creatinine 0.77 0.55 - 1.02 mg/dL 09/26/2023 10:23 PM [facility] Glucose 125(H) 70 - 100 mg/dL 09/26/2023 10:23 PM [facility] Comment:The given reference range is for the fasting state. Non-fasting reference range for glucose is 70 - 180 mg/dL. GFR, Estimated >60 >60 mL/min/1.7 3m2 09/26/2023 10:23 PM [facility] Blood Venipuncture / Unknown 09/26/2023 9:48 PM CDT 09/26/2023 9:53 PM CDT Grey Espinosa PA-C LAB_[id number] [place] [address] * (ABNORMAL) Complete Blood Count no Diff (09/26/2023 9:48 PM CDT) WBC 5.6 3.5 - 10.5 x10(9)/L 09/26/2023 9:58 PM [facility] RBC 4.06 3.90 - 5.03 x10(12)/L 09/26/2023 9:58 PM [facility] Hemoglobin 10.4(L) 12.0 - 15.5 g/dL 09/26/2023 9:58 PM [facility] HCT 34.1(L) 34.9 - 44.5 % 09/26/2023 9:58 PM [facility] MCV 84.0 80.0 - 100.0 fL 09/26/2023 9:58 PM [facility] MCH 25.6(L) 27.6 - 33.3 pg 09/26/2023 9:58 PM [facility] MCHC 30.5(L) 31.5 - 35.2 g/dL 09/26/2023 9:58 PM [facility] RDW 15.6(H) 11.9 - 15.5 % 09/26/2023 9:58 PM [facility] Platelets 165 150 - 450 x10(9)/L 09/26/2023 9:58 PM [facility] Automated NRBC 0 <=0 /100 WBC 09/26/2023 9:58 PM [facility] Blood Venipuncture / Unknown 09/26/2023 9:48 PM CDT 09/26/2023 9:53 PM CDT Grey Espinosa ALEK-[facility] LAB_1 Performing Organization Address [facility] Co de Phone Number [address] * (ABNORMAL) Urine Culture (09/26/2023 9:02 PM CDT) Urine Culture Growth(A) 09/27/2023 5:20 PM CDT [facility] Urine Culture <10,000 CFU/mL Mixed Bacterial Growth 09/27/2023 5:20 PM CDT [facility] Comment: Mixed Bacterial Growth indicates the specimen is likely contaminated at collection with urogenital and/or fecal lou. The presence of organisms at <10,000 cfu/ml in culture, UTI unlikely. Urine URINE SPECIMEN COLLECTION, CLEAN CATCH / Unknown Non-blood Collection / Unknown 09/26/2023 9:02 PM CDT 09/26/2023 9:31 PM CDT Grey Espinosa ALEK-C LAB_1 Performing Organization Address [facility] de Phone Number [address] * (ABNORMAL) UA Conditional UC: Clean Catch (09/26/2023 9:02 PM CDT) Urine Culture Comment Urinalysis results meet criteria for reflex, culture performed. 09/26/2023 9:39 PM CDT [facility] Urine Color Light-Mason 09/26/2023 9:39 PM T [facility] Urine Clarity Turbid(A) Clear 09/26/2023 9:39 PM T [facility] Specific [place], Urine 1.020 <1.030 09/26/2023 9:39 PM T [facility] PH Urine 6.0 5.0 - 8.0 09/26/2023 9:39 PM T [facility] Protein, Urine Qual (mg/dL) 100(A) Negative, 10 , 20 09/26/2023 9:39 PM [facility] Glucose Urine Qual (mg/dL) Normal (Negative) Normal (Negative), 30 , 50 09/26/2023 9:39 PM T [facility] Ketones, Urine (mg/dL) Negative Negative, Trace 09/26/2023 9:39 PM [facility] Urobilinogen, Urine (EU/dL) Normal (Negative) Normal (Negative) 09/26/2023 9:39 PM [facility] Bilirubin Urine (mg/dL) Negative Negative 09/26/2023 9:39 PM [facility] Blood, Urine (mg/dL) OVER (>1.0, Large)(A) Negative, 0.03 (Trace) 09/26/2023 9:39 PM [facility] Nitrite Urine Negative Negative 09/26/2023 9:39 PM [facility] Leukocyte Esterase, Urine (Ant/uL) 500 (Large)(A) Negative, 25 (Trace) 09/26/2023 9:39 PM [facility] Red Blood Cells >180(H) 0 - 3 /HPF 09/26/2023 9:39 PM [facility] White Blood Cells 116(H) 0 - 5 /HPF 09/26/2023 9:39 PM [facility] Squamous Epithelial Cells Occasional None Seen, Occasional, Few /HPF 09/26/2023 9:39 PM [facility] Mucus Present(A) None Seen /HPF 09/26/2023 9:39 PM [facility] Urine Source Clean Catch 09/26/2023 9:39 PM [facility] Urine URINE SPECIMEN COLLECTION, CLEAN CATCH / Unknown Non-blood Collection / Unknown 09/26/2023 9:02 PM CDT 09/26/2023 9:07 PM [facility] - 09/26/2023 9:39 PM CD The qualitative interpretive guidance provided (e.g., small, moderate, large) is intended to aid in quantitative result interpretation. It is not itself an FDA-cleared test result. Grey Espinosa PA-C LAB_[address] [address], [facility] documented in this encounter Visit Diagnoses [...] Coronary atherosclerosis of unspecified type of vessel, kotlik or graft Essential hypertension (HRC) Unspecified essential hypertension Left ureteral stone Left ureteral stone * Plan of Care - Enedina Martin RN - 09/30/2023 12:[address] [facility] Discharge Note - Nursing Admission Date/Time: [...] Castillo LSW - 09/30/2023 11:36 AM CDT [facility] Care Management Screening Insurance Coverage: Payor: [facility] / Plan: [facility] / [...] SW did place return call to patient's [facility] MYCHAL Stern PH: [phone]. SW able to leave a message to Leena regarding patient's admission date and discharge of today. Please consult if additional needsdo arise. BIBIANA Peterson * Plan of Care - Natalia Solis RN - 09/30/2023 2:51 AM CDT Pt alert, awake and oriented x3. Disoriented to situation. Communicated via iPad geodetic survey director. Reoriented as needed. Explained POC. Denies pain, SOB and N/V/D. IV LR infusing at 75 ml/hr. Up to the BRwith A1, GB and walker. * Plan of Care - Oliver Evans RN - 09/29/2023 10:56 PM CDT [facility] Plan of Care Note Pt is alert and oriented with some confusion to time noted. Pt is calm and cooperative with cares. Son present for communication and ipad geodetic survey director used after family left. Pt reported pain and received PRN tylenol. PRN was effective. Denies N/V, SOB. IV LR infusing at 75 ml/hr. Pt went for surgery this shift and post-op vitals obtained. VS stable on RA. Call light and alarms in place for safety. --- End of Report ---[facility]. Practitioner Notified Note Name of [...] Auguste RN - 09/29/2023 1:40 PM CDT [employer] geodetic survey director used for assessment/cares. Pt A&Ox3, disoriented to [...] Sebastian RN - 09/29/2023 6:18 AM CDT Pharmacy Technician Trainee utilized w/ encounters. Patient A/O x3. VSS [...] on. Pt is Hmong speaking and requires geodetic survey director. * Plan of Care - Brea Muir - 09/28/2023 2:21 PM CDT Patient is A&O x3, disoriented to time. Needs ong geodetic survey director. Heart rate is cecilia in the 50's, [...] alarm on for safety. Assumed cares from [phone] * Plan of Care - Renetta Castillo LSW - 09/28/2023 11:16 AM CDT [facility] Care Management Screening Insurance Coverage: Payor: [facility] / Plan: [facility] / [...] to time, Hmong speaking only - iPad geodetic survey director used and family helping to interpret per [...] Haque RN - 09/27/2023 2:34 PM CDT [facility] Plan of Care Note Assumed care [...] and Intervention: Triage: [employer]-slip mortgage servicing specialist footwear documented in this encounter Administered [...] (SUBLIMAZE) injection 25-50 mcg 25-50 mcg, Intravenous, [id number], Pain, Starting on Wed09/29/23 at 1925, Until [...] (NORMODYNE) injection 5 mg 5 mg, Intravenous, [id number], Blood Pressure >, Starting on Wed09/29/23 at [...] in Manage Orders - Provider: Inpatient Template [facility]) cyanocobalamin (VITAMIN B12) tablet 1,000 mcg 1,000 [...] (SUBLIMAZE) injection 25-50 mcg 25-50 mcg, Intravenous, [id number], Pain, Starting on Wed09/29/23 at 1925, Until [...] (NORMODYNE) injection 5 mg 5 mg, Intravenous, [id number], Blood Pressure >, Starting on Wed09/29/23 at [...] Practitioner. documented in this encounter Care Teams Material Scheduler Relationship Specialty Start Date End Date No Primary/Referring, Phy PCP - General 08/26/23 documented as of this encounter
== END 2024-01-05 09:49 | disposition home or self-care (01) ==
LOC: NFLDREF 09:50
PROVIDERS: PCP Family Medicine; Visit Provider Registered Nurse
DX: Z01.818 Encounter for other preprocedural examination (principal)
CPT/HCPCS: 80048

== ENCOUNTER 2024-05-09 08:39 | Emergency (ER) | payer MEDICARE, MEDICAID, SELFPAY ==
[2024-05-09] VITALS (53 sets, daily range): BP systolic 61–138; BP diastolic 35–102; PULSE 53–84; RESP 22–32; TEMP 35.7–36.4; O2SAT 85–99
--- NOTE | 2024-05-09 09:18 | CRLHL7_ITS ---
For Patients: As a result of the Century Cures Act, medical imaging exams and procedure reports are released immediately into your electronic medical record. You may view this report before your referring provider. If you have questions, please contact your health care provider. INDICATION: Right lower quadrant pain. History of kidney stones. TECHNIQUE: CT abdomen and pelvis acquired with 69 mL Isovue 370 contrast. COMPARISON: CT abdomen/pelvis dated 12/23/2023. FINDINGS: Suboptimal study secondary to motion artifact. Lower chest: No large focal consolidation. Stable 0.4 cm perifissural nodule in the right middle lobe, likely infectious/inflammatory in etiology. Extensive atherosclerotic coronary artery calcifications. Liver: Heterogeneous enhancement of the liver parenchyma, likely secondary to arterial phase of enhancement. No suspicious focal hepatic lesion. Gallbladder and bile ducts: Extensive cholelithiasis. No secondary signs of acute cholecystitis. Pancreas: Unremarkable. Spleen: Unremarkable. Adrenal glands: Unremarkable. Kidneys: Kidneys enhance relatively symmetrically. Multiple too small to characterize hypodense bilateral renal lesions. 0.5 cm calculus in the proximal right ureter (series 2, image 79), resulting in mild right hydronephrosis. Retroperitoneum: No lymphadenopathy. Bowel and mesentery: Bowel is not obstructed. No significant ascites, no pneumoperitoneum. Normal appendix. Bladder: Small right posterolateral bladder diverticulum. Reproductive organs: Unremarkable. Pelvic lymph nodes: No lymphadenopathy. Vessels: Extensive atherosclerotic calcifications. Abdominal wall: No acute abdominal wall abnormality. Bones: Multilevel degenerative changes of the spine. Bones are diffusely osteopenic. IMPRESSION: 1. 0.5 cm calculus in the proximal right ureter, results in mild right hydronephrosis. 2. Normal appendix. 3. Extensive cholelithiasis. No secondary signs of acute cholecystitis. 4. Additional incidental findings as above. Please note that all CT scans at this facility use dose modulation, iterative reconstruction, and/or weight-based dosing when appropriate to reduce radiation dose to as low as reasonably achievable. Dictated by Matilda Finn MD @ 05/09/2024 12:21:59 PM (Electronically Signed)
--- NOTE | 2024-05-09 09:23 | ED_ITS ---
HPI - Abdominal Pain General Date Seen: 05/09/24 <Josef Emerson - Last Filed: 05/09/24 15:24> Chief Complaint: Abdominal Pain <Josef Emerson DO - Last Filed: 05/09/24 15:24> Stated Complaint: sharp pain in rt side <Josef Emerson DO - Last Filed: 05/09/24 15:24> Time Seen by Provider: 05/09/24 08:45 <Josef Emerson DO - Last Filed: 05/09/24 15:24> Source: patient and family (Daughter is interpreting) <Josef Emerson - Last Filed: 05/09/24 15:24> Mode of arrival: ambulatory <Josef Emerson DO - Last Filed: 05/09/24 15:24> Limitations: language barrier <Josef Emerson - Last Filed: 05/09/24 15:24> History of Present Illness HPI narrative: Patient is a 78-year-old female with a history of left-sided nephrolithiasis presenting to emergency department for right lower quadrant abdominal pain. She states the pain started suddenly about 08:00 this morning. Feels the like her previous kidney stone from back in November. States it is a sharp pain that seems to radiate throughout the abdomen but starts in the right lower quadrant. Is not any fevers or chills. Has not had any associated nausea. Denies hematuria or dysuria. Of note patient is in quite a bit the pain in having difficulty answering questions at this time so history is relatively limited. <Josef Emerson DO - Last Filed: 05/09/24 15:24> Related Data Home Medications: Previous Rx's ?Medication ?Instructions ?Recorded nitroglycerin 0.4 mg sublingual 0.4 mg sublingual Q5M #25 tabs 08/04/23 tablet oxycodone 5 mg tablet 2.5 mg (1/2 x 5 mg) PO TID PRN 01/05/24 pain #7 tabs terbinafine HCl 1 % topical cream 1 applic topical BID #30 grams 01/19/24 (Athlete's Foot (terbinafine)) clopidogrel 75 mg tablet 75 mg PO DAILY #90 tabs 02/15/24 furosemide 20 mg tablet 20 mg PO DAILY #90 tabs 02/15/24 lisinopril 2.5 mg tablet 2.5 mg PO DAILY #90 tabs 02/15/24 metoprolol succinate 25 mg 12.5 mg (1/2 x 25 mg) PO DAILY #45 02/15/24 tablet,extended release 24 hr tabs rosuvastatin 10 mg tablet 10 mg PO QDAY #90 tabs 02/21/24 acetaminophen 325 mg tablet 650 mg (2 x 325 mg) PO TID PRN 04/07/24 pain #100 tabs <Josef Emerson DO - Last Filed: 05/09/24 15:24> Allergies/Adverse Reactions: Allergies Allergy/AdvReac Type Severity Reaction Status Date / Time No Known Allergies Allergy Verified 05/09/24 11:33 <Josef Emerson DO - Last Filed: 05/09/24 15:24> Review of Systems Status of ROS Reports: 10 or more systems reviewed and unremarkable except as noted in History and below <Josef Emerson DO - Last Filed: 05/09/24 15:24> [facility] Medical History: Medical History History of myocardial infarction (02/04/10) ?I25.2 - Old myocardial infarction (ICD-10) Chronic heart failure with preserved ejection fraction ?I50.32 - Chronic diastolic (congestive) heart failure (ICD-10) Hyperlipidemia ?E78.5 - Hyperlipidemia, unspecified (ICD-10) Pulmonary hypertension ?I27.20 - Pulmonary hypertension, unspecified (ICD-10) Coronary artery disease ?I25.10 - Atherosclerotic heart disease of [place] coronary artery without angina pectoris (ICD-10) COVID-19 virus infection ?U07.1 - COVID-19 (ICD-10) 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.1 - Rheumatic tricuspid insufficiency (ICD-10) Mitral valve insufficiency ?I34.0 - Nonrheumatic mitral (valve) insufficiency (ICD-10) Left ventricular hypertrophy ?I51.7 - Cardiomegaly (ICD-10) History of migraine ?Z86.69 - Personal history of other diseases of the nervous system and sense organs (ICD-10) <Josef Emerson DO - Last Filed: 05/09/24 15:24> Surgical History: Surgical History History of coronary artery bypass surgery (2009) ?Z95.1 - Presence of aortocoronary bypass graft (ICD-10) History of cataract extraction (07/2017) ?Z98.49 - Cataract extraction status, unspecified eye (ICD-10) <Josef Emerson DO - Last Filed: 05/09/24 15:24> Social History: Social History Narrative: Grew up in [facility], in the since the 1970s. Hmong is primary language. Lives with daughter Vishal and family (near [place], they have a farm near [place]). Had 10 children, 4 living children now. 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 Nonsmoker, no ETOH. Vishal would be medical decision maker if needed; requests Full Code status. What is your current living situation?: I presently have a place to live Problems where you live: no known problems In the past 12 months, utilities in danger of being shut off: no In the past 12 mos, have been you worried that your food would run out before you had money to buy more?: never true In the past 12 mos, the food you bought just didn't last and you didn't have money to buy more?: never true Highest level of school completed/degree received: never attended/kindergarten only Smoking Status: Never smoker Do you use any of these nicotine containing products: None Second hand tobacco smoke exposure: No How often do you have a drink containing alcohol: never How often do you have six or more drinks on one occasion: Never AUDIT-C Alcohol total score: 0 Non-prescribed substance use: denies use Caffeine: No How often does anyone, including family, friends and others, physically hurt you : How often does anyone, including family, friends and others, insult or talk down to you: How often does anyone, including family, friends and others, threaten you with harm: How often does anyone, including family, friends and others, scream or curse at you: service: No <Josef Emerson DO - Last Filed: 05/09/24 15:24> Exam Narrative: Exam Narrative: Const: Well-nourished, Well-developed, in severe distress Eyes: PERRL, no conjunctival injection, and symmetrical lids HENT: Atraumatic external nose and ears. Moist mucous membranes. Neck: Symmetric, trachea midline, No thyromegaly. CVS: RRR, No murmurs or gallops. Peripheral pulses 2+ and equal in all extremities RESP: Unlabored respiratory effort. Clear to auscultation bilaterally. GI: Difficult to interpret if she is tender to palpation due to patient's pain level at baseline, Nondistended. Appears to be non tenderness to McBurney's point MSK:Extremities w/o deformity, Normal Active ROM Skin: Warm, Dry. No rashes or lesions. Neuro: Normal Muscle tone, No focal neurological deficits. Psych: Awake, Alert, & Oriented x3. Appropriate mood and affect. <Josef Emerson, DO - Last Filed: 05/09/24 15:24> Const: Vital Signs, click to edit/add: Vital Signs - 24 hr 05/09/24 08:59 05/09/24 09:40 05/09/24 09:45 Temperature 96.2 F L Pulse Rate Pulse Rate [Pulse Oximeter] 53 L Respiratory Rate 22 Blood Pressure Blood Pressure [Ri ght Upper Arm] 115/92 H Pulse Oximetry 97 85 L 86 L Oxygen Delivery Me thod Room Air Nasal Cannula Oxygen Flow Rate 1 05/09/24 09:50 05/09/24 10:00 05/09/24 10:02 Temperature Pulse Rate 60 64 Pulse Rate [Pulse Oximeter] Respiratory Rate Blood Pressure 114/63 105/54 L Blood Pressure [Ri ght Upper Arm] Pulse Oximetry 86 L 96 Oxygen Delivery Me thod Nasal Cannula Nasal Cannula Nasal Cannula Oxygen Flow Rate 1 1 1 05/09/24 10:21 05/09/24 10:59 05/09/24 11:51 Temperature Pulse Rate 70 73 72 Pulse Rate [Pulse Oximeter] Respiratory Rate Blood Pressure 103/59 L 118/64 128/102 H Blood Pressure [Ri ght Upper Arm] Pulse Oximetry 99 94 96 Oxygen Delivery Me thod Nasal Cannula Nasal Cannula Nasal Cannula Oxygen Flow Rate 1 1 1 05/09/24 11:57 05/09/24 12:02 05/09/24 12:03 Temperature Pulse Rate 71 71 71 Pulse Rate [Pulse Oximeter] Respiratory Rate Blood Pressure 70/44 L 72/44 L 75/47 L Blood Pressure [Ri ght Upper Arm] Pulse Oximetry 96 96 96 Oxygen Delivery Me thod Room Air Room Air Room Air Oxygen Flow Rate 05/09/24 12:06 05/09/24 12:11 05/09/24 12:22 Temperature Pulse Rate 72 72 70 Pulse Rate [Pulse Oximeter] Respiratory Rate Blood Pressure 73/48 L 74/49 L 72/47 L Blood Pressure [Ri ght Upper Arm] Pulse Oximetry 95 96 96 Oxygen Delivery Me thod Room Air Room Air Oxygen Flow Rate 05/09/24 12:32 05/09/24 12:41 05/09/24 12:51 Temperature Pulse Rate 69 71 71 Pulse Rate [Pulse Oximeter] Respiratory Rate Blood Pressure 72/49 L 73/48 L 73/49 L Blood Pressure [Ri ght Upper Arm] Pulse Oximetry 96 97 96 Oxygen Delivery Me thod Room Air Room Air Room Air Oxygen Flow Rate 05/09/24 13:02 05/09/24 13:10 05/09/24 13:16 Temperature Pulse Rate 72 73 72 Pulse Rate [Pulse Oximeter] Respiratory Rate Blood Pressure 75/41 L 88/52 L 80/50 L Blood Pressure [Ri ght Upper Arm] Pulse Oximetry 94 90 89 Oxygen Delivery Me thod Oxygen Flow Rate 05/09/24 13:22 05/09/24 13:32 05/09/24 13:42 Temperature Pulse Rate 71 69 Pulse Rate [Pulse Oximeter] Respiratory Rate 24 Blood Pressure 71/46 L 72/45 L Blood Pressure [Ri ght Upper Arm] Pulse Oximetry 91 93 Oxygen Delivery Me thod Oxygen Flow Rate 05/09/24 14:18 05/09/24 14:21 05/09/24 14:22 Temperature Pulse Rate 69 66 66 Pulse Rate [Pulse Oximeter] Respiratory Rate Blood Pressure 65/41 L 61/35 L Blood Pressure [Ri ght Upper Arm] Pulse Oximetry 95 94 94 Oxygen Delivery Me thod Room Air Room Air Oxygen Flow Rate 05/09/24 14:29 05/09/24 14:30 05/09/24 14:31 Temperature 97.6 F Pulse Rate 73 73 Pulse Rate [Pulse Oximeter] Respiratory Rate 32 H Blood Pressure 77/56 L 91/54 L Blood Pressure [Ri ght Upper Arm] Pulse Oximetry 92 Oxygen Delivery Me thod Oxygen Flow Rate 05/09/24 14:35 05/09/24 14:37 05/09/24 14:41 Temperature Pulse Rate 73 70 72 Pulse Rate [Pulse Oximeter] Respiratory Rate Blood Pressure 85/67 L 80/66 L 79/50 L Blood Pressure [Ri ght Upper Arm] Pulse Oximetry 94 91 95 Oxygen Delivery Me thod Oxygen Flow Rate 05/09/24 14:46 05/09/24 14:51 05/09/24 14:56 Temperature Pulse Rate 71 72 71 Pulse Rate [Pulse Oximeter] Respiratory Rate 28 H Blood Pressure 89/64 L 91/60 111/54 L Blood Pressure [Ri ght Upper Arm] Pulse Oximetry 93 91 93 Oxygen Delivery Me thod Nasal Cannula Oxygen Flow Rate 1 05/09/24 15:01 05/09/24 15:06 05/09/24 15:11 Temperature Pulse Rate 71 72 72 Pulse Rate [Pulse Oximeter] Respiratory Rate 28 H 24 Blood Pressure 99/67 98/61 105/67 Blood Pressure [Ri ght Upper Arm] Pulse Oximetry 94 92 90 Oxygen Delivery Me thod Nasal Cannula Nasal Cannula Nasal Cannula Oxygen Flow Rate 1 1 1 05/09/24 15:22 05/09/24 15:31 05/09/24 15:42 Temperature Pulse Rate 77 76 84 Pulse Rate [Pulse Oximeter] Respiratory Rate Blood Pressure 113/68 101/47 L 138/78 Blood Pressure [Ri ght Upper Arm] Pulse Oximetry 91 90 90 Oxygen Delivery Me thod Nasal Cannula Nasal Cannula Oxygen Flow Rate 1 1 05/09/24 15:51 05/09/24 16:02 05/09/24 16:11 Temperature Pulse Rate 82 82 81 Pulse Rate [Pulse Oximeter] Respiratory Rate 24 Blood Pressure 114/39 L 116/65 95/65 Blood Pressure [Ri ght Upper Arm] Pulse Oximetry 90 96 89 Oxygen Delivery Me thod Nasal Cannula Nasal Cannula Nasal Cannula Oxygen Flow Rate 1 1 1 05/09/24 16:21 05/09/24 16:49 05/09/24 17:01 Temperature Pulse Rate 79 81 76 Pulse Rate [Pulse Oximeter] Respiratory Rate 24 Blood Pressure 81/62 L 85/60 L 85/51 L Blood Pressure [Ri ght Upper Arm] Pulse Oximetry 89 89 90 Oxygen Delivery Me thod Nasal Cannula Nasal Cannula Nasal Cannula Oxygen Flow Rate 1 1 1 05/09/24 17:07 05/09/24 17:11 Temperature Pulse Rate 80 75 Pulse Rate [Pulse Oximeter] Respiratory Rate Blood Pressure 84/48 L 89/50 L Blood Pressure [Ri ght Upper Arm] Pulse Oximetry 89 88 Oxygen Delivery Me thod Nasal Cannula Nasal Cannula Oxygen Flow Rate 1 1 <Josef Santos Ki, DO - Last Filed: 05/09/24 15:24> Vital Signs, click to edit/add: Vital Signs - 24 hr 05/09/24 08:59 05/09/24 09:40 05/09/24 09:45 Temperature 96.2 F L Pulse Rate Pulse Rate [Pulse Oximeter] 53 L Respiratory Rate 22 Blood Pressure Blood Pressure [Ri ght Upper Arm] 115/92 H Pulse Oximetry 97 85 L 86 L Oxygen Delivery Me thod Room Air Nasal Cannula Oxygen Flow Rate 1 05/09/24 09:50 05/09/24 10:00 05/09/24 10:02 Temperature Pulse Rate 60 64 Pulse Rate [Pulse Oximeter] Respiratory Rate Blood Pressure 114/63 105/54 L Blood Pressure [Ri ght Upper Arm] Pulse Oximetry 86 L 96 Oxygen Delivery Me thod Nasal Cannula Nasal Cannula Nasal Cannula Oxygen Flow Rate 1 1 1 05/09/24 10:21 05/09/24 10:59 05/09/24 11:51 Temperature Pulse Rate 70 73 72 Pulse Rate [Pulse Oximeter] Respiratory Rate Blood Pressure 103/59 L 118/64 128/102 H Blood Pressure [Ri ght Upper Arm] Pulse Oximetry 99 94 96 Oxygen Delivery Me thod Nasal Cannula Nasal Cannula Nasal Cannula Oxygen Flow Rate 1 1 1 05/09/24 11:57 05/09/24 12:02 05/09/24 12:03 Temperature Pulse Rate 71 71 71 Pulse Rate [Pulse Oximeter] Respiratory Rate Blood Pressure 70/44 L 72/44 L 75/47 L Blood Pressure [Ri ght Upper Arm] Pulse Oximetry 96 96 96 Oxygen Delivery Me thod Room Air Room Air Room Air Oxygen Flow Rate 05/09/24 12:06 05/09/24 12:11 05/09/24 12:22 Temperature Pulse Rate 72 72 70 Pulse Rate [Pulse Oximeter] Respiratory Rate Blood Pressure 73/48 L 74/49 L 72/47 L Blood Pressure [Ri ght Upper Arm] Pulse Oximetry 95 96 96 Oxygen Delivery Me thod Room Air Room Air Oxygen Flow Rate 05/09/24 12:32 05/09/24 12:41 05/09/24 12:51 Temperature Pulse Rate 69 71 71 Pulse Rate [Pulse Oximeter] Respiratory Rate Blood Pressure 72/49 L 73/48 L 73/49 L Blood Pressure [Ri ght Upper Arm] Pulse Oximetry 96 97 96 Oxygen Delivery Me thod Room Air Room Air Room Air Oxygen Flow Rate 05/09/24 13:02 05/09/24 13:10 05/09/24 13:16 Temperature Pulse Rate 72 73 72 Pulse Rate [Pulse Oximeter] Respiratory Rate Blood Pressure 75/41 L 88/52 L 80/50 L Blood Pressure [Ri ght Upper Arm] Pulse Oximetry 94 90 89 Oxygen Delivery Me thod Oxygen Flow Rate 05/09/24 13:22 05/09/24 13:32 05/09/24 13:42 Temperature Pulse Rate 71 69 Pulse Rate [Pulse Oximeter] Respiratory Rate 24 Blood Pressure 71/46 L 72/45 L Blood Pressure [Ri ght Upper Arm] Pulse Oximetry 91 93 Oxygen Delivery Me thod Oxygen Flow Rate 05/09/24 14:18 05/09/24 14:21 05/09/24 14:22 Temperature Pulse Rate 69 66 66 Pulse Rate [Pulse Oximeter] Respiratory Rate Blood Pressure 65/41 L 61/35 L Blood Pressure [Ri ght Upper Arm] Pulse Oximetry 95 94 94 Oxygen Delivery Me thod Room Air Room Air Oxygen Flow Rate 05/09/24 14:29 05/09/24 14:30 05/09/24 14:31 Temperature 97.6 F Pulse Rate 73 73 Pulse Rate [Pulse Oximeter] Respiratory Rate 32 H Blood Pressure 77/56 L 91/54 L Blood Pressure [Ri ght Upper Arm] Pulse Oximetry 92 Oxygen Delivery Me thod Oxygen Flow Rate 05/09/24 14:35 05/09/24 14:37 05/09/24 14:41 Temperature Pulse Rate 73 70 72 Pulse Rate [Pulse Oximeter] Respiratory Rate Blood Pressure 85/67 L 80/66 L 79/50 L Blood Pressure [Ri ght Upper Arm] Pulse Oximetry 94 91 95 Oxygen Delivery Me thod Oxygen Flow Rate 05/09/24 14:46 05/09/24 14:51 05/09/24 14:56 Temperature Pulse Rate 71 72 71 Pulse Rate [Pulse Oximeter] Respiratory Rate 28 H Blood Pressure 89/64 L 91/60 111/54 L Blood Pressure [Ri ght Upper Arm] Pulse Oximetry 93 91 93 Oxygen Delivery Me thod Nasal Cannula Oxygen Flow Rate 1 05/09/24 15:01 05/09/24 15:06 05/09/24 15:11 Temperature Pulse Rate 71 72 72 Pulse Rate [Pulse Oximeter] Respiratory Rate 28 H 24 Blood Pressure 99/67 98/61 105/67 Blood Pressure [Ri ght Upper Arm] Pulse Oximetry 94 92 90 Oxygen Delivery Me thod Nasal Cannula Nasal Cannula Nasal Cannula Oxygen Flow Rate 1 1 1 05/09/24 15:22 05/09/24 15:31 05/09/24 15:42 Temperature Pulse Rate 77 76 84 Pulse Rate [Pulse Oximeter] Respiratory Rate Blood Pressure 113/68 101/47 L 138/78 Blood Pressure [Ri ght Upper Arm] Pulse Oximetry 91 90 90 Oxygen Delivery Me thod Nasal Cannula Nasal Cannula Oxygen Flow Rate 1 1 05/09/24 15:51 05/09/24 16:02 05/09/24 16:11 Temperature Pulse Rate 82 82 81 Pulse Rate [Pulse Oximeter] Respiratory Rate 24 Blood Pressure 114/39 L 116/65 95/65 Blood Pressure [Ri ght Upper Arm] Pulse Oximetry 90 96 89 Oxygen Delivery Me thod Nasal Cannula Nasal Cannula Nasal Cannula Oxygen Flow Rate 1 1 1 05/09/24 16:21 05/09/24 16:49 05/09/24 17:01 Temperature Pulse Rate 79 81 76 Pulse Rate [Pulse Oximeter] Respiratory Rate 24 Blood Pressure 81/62 L 85/60 L 85/51 L Blood Pressure [Ri ght Upper Arm] Pulse Oximetry 89 89 90 Oxygen Delivery Me thod Nasal Cannula Nasal Cannula Nasal Cannula Oxygen Flow Rate 1 1 1 05/09/24 17:07 05/09/24 17:11 Temperature Pulse Rate 80 75 Pulse Rate [Pulse Oximeter] Respiratory Rate Blood Pressure 84/48 L 89/50 L Blood Pressure [Ri ght Upper Arm] Pulse Oximetry 89 88 Oxygen Delivery Me thod Nasal Cannula Nasal Cannula Oxygen Flow Rate 1 1 <Anahy Noel MD - Last Filed: 05/09/24 18:12> Course Course ED Course: Patient was signed out to in while she was waiting for transfer to [facility]. While waiting for the ambulance patient did start complaining of increasing pain. She was given a dose of Toradol which did seem to help. Blood pressure then started dropping despite Levophed, so she was given another 500 mL of normal saline. At this time the ambulance arrived however patient's blood pressure remained quite low with systolics in the 70s. I did contact Dr. Dykes, director of agriculture at [facility] who recommended another 500 mL of normal saline, calcium gluconate and starting vasopressin. I also did look through the patient's chart and it appeared that she had only received ceftriaxone. Vancomycin and Zosyn were ordered however as not to delay transfer the Zosyn was started and Dr. Dykes stated that they could start the vancomycin at [place]. Patient transferred at this time. <Anahy Noel MD - Last Filed: 05/09/24 18:12> Vital Signs Vital signs: Initial Vital Signs Temperature 96.2 F L 05/09/24 08:59 Temperature Source Temporal Artery Scan 05/09/24 08:59 Pulse Rate 53 L 05/09/24 08:59 Respiratory Rate 22 05/09/24 08:59 Blood Pressure 115/92 H 05/09/24 08:59 Blood Pressure Mean 99 05/09/24 08:59 Blood Pressure Position Left Lateral 05/09/24 08:59 Pulse Oximetry 97 05/09/24 08:59 Oxygen Delivery Method Room Air 05/09/24 08:59 Vital Signs Temperature 96.2 F L 05/09/24 08:59 Pulse Rate 53 L 05/09/24 08:59 Respiratory Rate 22 05/09/24 08:59 Blood Pressure 115/92 H 05/09/24 08:59 Pulse Oximetry 97 05/09/24 08:59 Oxygen Delivery Method Room Air 05/09/24 08:59 Temperature 97.6 F 05/09/24 14:30 Pulse Rate 75 05/09/24 17:11 Respiratory Rate 24 05/09/24 17:01 Blood Pressure 89/50 L 05/09/24 17:11 Pulse Oximetry 88 05/09/24 17:11 Oxygen Delivery Method Nasal Cannula 05/09/24 17:11 Oxygen Flow Rate 1 05/09/24 17:11 <Josef Emerson DO - Last Filed: 05/09/24 15:24> Initial Vital Signs Temperature 96.2 F L 05/09/24 08:59 Temperature Source Temporal Artery Scan 05/09/24 08:59 Pulse Rate 53 L 05/09/24 08:59 Respiratory Rate 22 05/09/24 08:59 Blood Pressure 115/92 H 05/09/24 08:59 Blood Pressure Mean 99 05/09/24 08:59 Blood Pressure Position Left Lateral 05/09/24 08:59 Pulse Oximetry 97 05/09/24 08:59 Oxygen Delivery Method Room Air 05/09/24 08:59 Vital Signs Temperature 96.2 F L 05/09/24 08:59 Pulse Rate 53 L 05/09/24 08:59 Respiratory Rate 22 05/09/24 08:59 Blood Pressure 115/92 H 05/09/24 08:59 Pulse Oximetry 97 05/09/24 08:59 Oxygen Delivery Method Room Air 05/09/24 08:59 Temperature 97.6 F 05/09/24 14:30 Pulse Rate 75 05/09/24 17:11 Respiratory Rate 24 05/09/24 17:01 Blood Pressure 89/50 L 05/09/24 17:11 Pulse Oximetry 88 05/09/24 17:11 Oxygen Delivery Method Nasal Cannula 05/09/24 17:11 Oxygen Flow Rate 1 05/09/24 17:11 <Anahy Noel MD - Last Filed: 05/09/24 18:12> Medications Administered Medications: Generic Name Dose Route Start Last Admin Trade Name Freq PRN Reason Stop Dose Admin Norepinephrine/Dextrose 4,000 mcg in 250 mls @ 20.412 mls/hr 05/09/24 14:30 05/09/24 18:00 Norepinephrine Infusion IV 0.35 mcg/kg/min CONT BOLIVAR 71.44 mls/hr Titration Protocol 0.1 MCG/KG/MIN Vasopressin 25 unit/ Sodium 251.25 mls @ 18 mls/hr 05/09/24 17:50 05/09/24 18:05 Chloride IVPB 05/10/24 07:47 18 mls/hr ONCE ONE Administration Sodium Chloride 500 mls @ 1,000 mls/hr 05/09/24 17:43 05/09/24 17:50 0.9 % Sodium Chloride 500 Ml IV 05/09/24 18:12 1,000 mls/hr .Q30M BOLIVAR Administration Discontinued Medications Generic Name Dose Route Start Last Admin Trade Name Freq PRN Reason Stop Dose Admin Fentanyl 50 mcg 05/09/24 10:34 05/09/24 11:23 Fentanyl 100 Mcg/2 Ml Inj IVP 05/09/24 10:35 Not Given ONCE ONE Fentanyl 50 mcg 05/09/24 11:30 05/09/24 10:35 Fentanyl 100 Mcg/2 Ml Inj NOSTRIL-L 05/09/24 11:31 50 mcg ONCE ONE Administration Fentanyl 50 mcg 05/09/24 14:36 05/09/24 15:01 Fentanyl 100 Mcg/2 Ml Inj IVP 05/09/24 14:37 50 mcg ONCE ONE Administration Fentanyl 25 mcg 05/09/24 15:37 05/09/24 15:45 Fentanyl 100 Mcg/2 Ml Inj IVP 05/09/24 15:38 25 mcg ONCE ONE Administration Hydromorphone HCl 0.5 mg 05/09/24 15:58 05/09/24 16:02 Hydromorphone 0.5 Mg/0.5 Ml Inj IVP 05/09/24 15:59 0.5 mg ONCE ONE Administration Sodium Chloride 500 mls @ 1,000 mls/hr 05/09/24 12:03 05/09/24 12:38 0.9 % Sodium Chloride 500 Ml IV 05/09/24 12:32 Infused .Q30M ONE Infusion Sodium Chloride 500 mls @ 1,000 mls/hr 05/09/24 13:11 05/09/24 14:10 0.9 % Sodium Chloride 500 Ml IV 05/09/24 13:40 Infused .Q30M ONE Infusion Ceftriaxone Sodium 1 gm/ 100 mls @ 200 mls/hr 05/09/24 13:52 05/09/24 14:42 Sodium Chloride IVPB 05/09/24 13:53 Infused ONCE ONE Infusion Sodium Chloride 500 mls @ 1,000 mls/hr 05/09/24 13:55 05/09/24 14:45 0.9 % Sodium Chloride 500 Ml IV 05/09/24 14:24 Infused .Q30M ONE Infusion Sodium Chloride 100 mls @ 1,000 mls/hr 05/09/24 13:55 05/09/24 14:50 0.9 % Sodium Chloride 250 Ml IV 05/09/24 14:00 Infused .Q6M ONE Infusion Sodium Chloride 500 mls @ 1,000 mls/hr 05/09/24 16:56 05/09/24 18:10 0.9 % Sodium Chloride 500 Ml IV 05/09/24 17:25 Infused .Q30M BOLIVAR Infusion Calcium Gluconate/Sodium Chloride 1,000 mg in 50 mls @ 100 mls/hr 05/09/24 17:41 05/09/24 17:50 Calcium Gluc 1,000mg/50 Ml IVPB 05/09/24 18:10 100 mls/hr ONCE ONE Administration Piperacillin Sod/Tazobactam 100 mls @ 200 mls/hr 05/09/24 17:49 05/09/24 18:00 Sod 3.375 gm/ Sodium Chloride IVPB 05/09/24 17:50 200 mls/hr ONCE ONE Administration Ketorolac Tromethamine 15 mg 05/09/24 10:15 05/09/24 11:23 Ketorolac 15 Mg/Ml Inj IVP 05/09/24 10:16 Not Given ONCE ONE Ketorolac Tromethamine 30 mg 05/09/24 11:20 05/09/24 10:20 Ketorolac 30 Mg/Ml Inj IM 05/09/24 11:21 30 mg ONCE ONE Administration Ketorolac Tromethamine 30 mg 05/09/24 16:52 05/09/24 17:01 Ketorolac 30 Mg/Ml Inj IVP 05/09/24 16:53 30 mg ONCE ONE Administration Morphine Sulfate 4 mg 05/09/24 09:17 05/09/24 09:29 Morphine 4 Mg/Ml Inj IVP 05/09/24 09:18 4 mg ONCE ONE Administration <Josef Emerson, DO - Last Filed: 05/09/24 15:24> Generic Name Dose Route Start Last Admin Trade Name Freq PRN Reason Stop Dose Admin Norepinephrine/Dextrose 4,000 mcg in 250 mls @ 20.412 mls/hr 05/09/24 14:30 05/09/24 18:00 Norepinephrine Infusion IV 0.35 mcg/kg/min CONT BOLIVAR 71.44 mls/hr Titration Protocol 0.1 MCG/KG/MIN Vasopressin 25 unit/ Sodium 251.25 mls @ 18 mls/hr 05/09/24 17:50 05/09/24 18:05 Chloride IVPB 05/10/24 07:47 18 mls/hr ONCE ONE Administration Sodium Chloride 500 mls @ 1,000 mls/hr 05/09/24 17:43 05/09/24 17:50 0.9 % Sodium Chloride 500 Ml IV 05/09/24 18:12 1,000 mls/hr .Q30M BOLIVAR Administration Discontinued Medications Generic Name Dose Route Start Last Admin Trade Name Ruiq PRN Reason Stop Dose Admin Fentanyl 50 mcg 05/09/24 10:34 05/09/24 11:23 Fentanyl 100 Mcg/2 Ml Inj IVP 05/09/24 10:35 Not Given ONCE ONE Fentanyl 50 mcg 05/09/24 11:30 05/09/24 10:35 Fentanyl 100 Mcg/2 Ml Inj NOSTRIL-L 05/09/24 11:31 50 mcg ONCE ONE Administration Fentanyl 50 mcg 05/09/24 14:36 05/09/24 15:01 Fentanyl 100 Mcg/2 Ml Inj IVP 05/09/24 14:37 50 mcg ONCE ONE Administration Fentanyl 25 mcg 05/09/24 15:37 05/09/24 15:45 Fentanyl 100 Mcg/2 Ml Inj IVP 05/09/24 15:38 25 mcg ONCE ONE Administration Hydromorphone HCl 0.5 mg 05/09/24 15:58 05/09/24 16:02 Hydromorphone 0.5 Mg/0.5 Ml Inj IVP 05/09/24 15:59 0.5 mg ONCE ONE Administration Sodium Chloride 500 mls @ 1,000 mls/hr 05/09/24 12:03 05/09/24 12:38 0.9 % Sodium Chloride 500 Ml IV 05/09/24 12:32 Infused .Q30M ONE Infusion Sodium Chloride 500 mls @ 1,000 mls/hr 05/09/24 13:11 05/09/24 14:10 0.9 % Sodium Chloride 500 Ml IV 05/09/24 13:40 Infused .Q30M ONE Infusion Ceftriaxone Sodium 1 gm/ 100 mls @ 200 mls/hr 05/09/24 13:52 05/09/24 14:42 Sodium Chloride IVPB 05/09/24 13:53 Infused ONCE ONE Infusion Sodium Chloride 500 mls @ 1,000 mls/hr 05/09/24 13:55 05/09/24 14:45 0.9 % Sodium Chloride 500 Ml IV 05/09/24 14:24 Infused .Q30M ONE Infusion Sodium Chloride 100 mls @ 1,000 mls/hr 05/09/24 13:55 05/09/24 14:50 0.9 % Sodium Chloride 250 Ml IV 05/09/24 14:00 Infused .Q6M ONE Infusion Sodium Chloride 500 mls @ 1,000 mls/hr 05/09/24 16:56 05/09/24 18:10 0.9 % Sodium Chloride 500 Ml IV 05/09/24 17:25 Infused .Q30M BOLIVAR Infusion Calcium Gluconate/Sodium Chloride 1,000 mg in 50 mls @ 100 mls/hr 05/09/24 17:41 05/09/24 17:50 Calcium Gluc 1,000mg/50 Ml IVPB 05/09/24 18:10 100 mls/hr ONCE ONE Administration Piperacillin Sod/Tazobactam 100 mls @ 200 mls/hr 05/09/24 17:49 05/09/24 18:00 Sod 3.375 gm/ Sodium Chloride IVPB 05/09/24 17:50 200 mls/hr ONCE ONE Administration Ketorolac Tromethamine 15 mg 05/09/24 10:15 05/09/24 11:23 Ketorolac 15 Mg/Ml Inj IVP 05/09/24 10:16 Not Given ONCE ONE Ketorolac Tromethamine 30 mg 05/09/24 11:20 05/09/24 10:20 Ketorolac 30 Mg/Ml Inj IM 05/09/24 11:21 30 mg ONCE ONE Administration Ketorolac Tromethamine 30 mg 05/09/24 16:52 05/09/24 17:01 Ketorolac 30 Mg/Ml Inj IVP 05/09/24 16:53 30 mg ONCE ONE Administration Morphine Sulfate 4 mg 05/09/24 09:17 05/09/24 09:29 Morphine 4 Mg/Ml Inj IVP 05/09/24 09:18 4 mg ONCE ONE Administration <Anahy Noel MD - Last Filed: 05/09/24 18:12> MDM - Abdominal Pain MDM Narrative Medical decision making narrative: Patient is a 78-year-old female presenting for right lower quadrant abdominal pain. Differential includes nephrolithiasis, appendicitis. Pain appears to be higher up in the abdomen then while expect for pain with ovarian torsion. Will do CT scan and if that shows no abnormalities will look into doing an ultrasound. Due that occasion SBO, gallbladder disease, diverticulitis, pancreatitis seem less likely. Does not really have much flank pain at this time and AAA seems unlikely pressure considering her otherwise stable vital signs. Will give morphine for pain. Also order CBC, CMP, and point care creatinine speed up time to CT scan. Patient required fentanyl for her pain also has morphine was not helping. CT scan was done. Will wait for CT scans of she started to become hypotensive. My review of the CT scan and the son hydronephrosis with a stone but no other concerning abnormalities. Patient was started on fluids. She does have history of CHF but her most recent echo shows an EF of 66%. She does not look fluid overloaded and I am comfortable given her fluid to bring her blood pressure back up. Lactate came back at 5.8. All ordered blood cultures. CBC returned with white count 2.3 which is abnormally low for her. Her back CMP shows no concerning abnormalities. CTA results reviewed by the radiologist shows similar hydronephrosis with the 5 mm stone. Urinalysis shows what looks to be a UTI. She is most likely becoming septic from an infected kidney stone. Rocephin was given. I given 30 mL/kilos of fluids but before she could get all these fluids she continued to get more hypotensive and Levophed was started. She did finish the fluids eventually. Did not believe it was in her best interest to hold off on blood pressure management until all of the fluid could be given as she is becoming more more hypotensive. Family wants patient to be full code and I spoke to Dr. Sharma of [place] [facility] and she accepts the patient for transfer. Her blood pressure has improved with Levophed. She was given some more fentanyl for pain control. <Josef Emerson, DO - Last Filed: 05/09/24 15:24> Lab Data Labs: Lab Results 05/09/24 05/09/24 05/09/24 Range/Units 09:39 09:57 12:25 WBC 2.36 L (4.50-11.00) K/uL RBC 5.54 H (4.00-5.20) m/uL Hgb 16.1 H (12.0-16.0) gm/dL Hct 52.5 H (33.0-51.0) % MCV 95 (80-100) fL MCH 29 (26-34) pg MCHC 31 L (32-36) gm/dL RDW Coeff of Mandi 15.7 H (11.5-15.5) % Plt Count 136 L (140-440) K/uL Neut % (Auto) 64.1 (42.0-72.0) % Lymph % (Auto) 30.1 (20-44) % [place] % (Auto) 0.8 (0.0-11.0) % Eos % (Auto) 0.4 (0.0-7.0) % Baso % (Auto) 0.4 (0.0-3.0) % Neut # (Auto) 1.50 L (1.7-7.0) K/uL Lymph # (Auto) 0.70 L (0.90-2.90) K/uL [place] # (Auto) 0.00 (0.00-0.90) K/UL Eos # (Auto) 0.00 (0.00-0.50) K/uL Baso # (Auto) 0.00 (0.00-0.30) K/uL Abs Immat Gran (auto) 0.10 (0.00-0.30) K/uL Imm/Tot Granulo (auto) 4.2 % Sodium 137 (135-149) mmol/L Potassium 4.4 (3.6-5.1) mmol/L Chloride 102 (96-114) mmol/L Carbon Dioxide 21 (20-32) mmol/L Anion Gap 14 (7-15) mEq/L BUN 25 (7-30) mg/dL Creatinine 0.8 (0.5-1.5) mg/dL Estimated GFR 75 ml/min Glucose 116 H (60-115) mg/dL Lactate 5.8 H* (0.5-1.9) mmol/L Calcium 9.3 (8.4-10.6) mg/dL Total Bilirubin 2.0 H (0.1-1.5) mg/dL AST 36 H (12-35) U/L ALT 28 (4-35) U/L Alkaline Phosphatase 133 (40-150) U/L Total Protein 8.2 (6.0-8.3) g/dL Albumin 4.5 (3.3-5.0) g/dL Urine Color (Yellow) Urine Appearance (Clear) Urine pH (5.0-8.5) Ur Specific [place] (1.000-1.030) Urine Protein (Negative) Urine Glucose (UA) (Negative) Urine Ketones (Negative) Urine Blood (Negative) Urine Nitrite (Negative) Urine Bilirubin (Negative) Urine Urobilinogen (0.2-1.0) Ur Leukocyte Esterase (Negative) Urine RBC (0-2) Urine WBC (0-5) Ur Squamous Epith Cells (None-Few) Urine Bacteria (None) Urine Yeast (None) POC Creatinine 0.9 (0.6-1.3) mg/dl POC Troponin I 0.02 (0.01-0.04) ng/ml 05/09/24 05/09/24 05/09/24 Range/Units 13:15 16:53 Unknown WBC (4.50-11.00) K/uL RBC (4.00-5.20) m/uL Hgb (12.0-16.0) gm/dL Hct (33.0-51.0) % MCV (80-100) fL MCH (26-34) pg MCHC (32-36) gm/dL RDW Coeff of Mandi (11.5-15.5) % Plt Count (140-440) K/uL Neut % (Auto) (42.0-72.0) % Lymph % (Auto) (20-44) % [place] % (Auto) (0.0-11.0) % Eos % (Auto) (0.0-7.0) % Baso % (Auto) (0.0-3.0) % Neut # (Auto) (1.7-7.0) K/uL Lymph # (Auto) (0.90-2.90) K/uL [place] # (Auto) (0.00-0.90) K/UL Eos # (Auto) (0.00-0.50) K/uL Baso # (Auto) (0.00-0.30) K/uL Abs Immat Gran (auto) (0.00-0.30) K/uL Imm/Tot Granulo (auto) % Sodium (135-149) mmol/L Potassium (3.6-5.1) mmol/L Chloride (96-114) mmol/L Carbon Dioxide (20-32) mmol/L Anion Gap (7-15) mEq/L BUN (7-30) mg/dL Creatinine (0.5-1.5) mg/dL Estimated GFR ml/min Glucose (60-115) mg/dL Lactate 8.0 H* (0.5-1.9) mmol/L Calcium (8.4-10.6) mg/dL Total Bilirubin (0.1-1.5) mg/dL AST (12-35) U/L ALT (4-35) U/L Alkaline Phosphatase (40-150) U/L Total Protein (6.0-8.3) g/dL Albumin (3.3-5.0) g/dL Urine Color Yellow (Yellow) Urine Appearance Clear (Clear) Urine pH 6.0 (5.0-8.5) Ur Specific [place] 1.015 (1.000-1.030) Urine Protein Negative (Negative) Urine Glucose (UA) Negative (Negative) Urine Ketones Negative (Negative) Urine Blood 3+ A (Negative) Urine Nitrite Negative (Negative) Urine Bilirubin Negative (Negative) Urine Urobilinogen 0.2 (0.2-1.0) Ur Leukocyte Esterase 2+ A (Negative) Urine RBC 10-25 A (0-2) Urine WBC 5-10 A (0-5) Ur Squamous Epith Cells Few (None-Few) Urine Bacteria Moderate A (None) Urine Yeast Moderate A (None) POC Creatinine (0.6-1.3) mg/dl POC Troponin I 0.03 (0.01-0.04) ng/ml <Josef Emerson, DO - Last Filed: 05/09/24 15:24> Lab Results 05/09/24 05/09/24 05/09/24 Range/Units 09:39 09:57 12:25 WBC 2.36 L (4.50-11.00) K/uL RBC 5.54 H (4.00-5.20) m/uL Hgb 16.1 H (12.0-16.0) gm/dL Hct 52.5 H (33.0-51.0) % MCV 95 (80-100) fL MCH 29 (26-34) pg MCHC 31 L (32-36) gm/dL RDW Coeff of Mandi 15.7 H (11.5-15.5) % Plt Count 136 L (140-440) K/uL Neut % (Auto) 64.1 (42.0-72.0) % Lymph % (Auto) 30.1 (20-44) % [place] % (Auto) 0.8 (0.0-11.0) % Eos % (Auto) 0.4 (0.0-7.0) % Baso % (Auto) 0.4 (0.0-3.0) % Neut # (Auto) 1.50 L (1.7-7.0) K/uL Lymph # (Auto) 0.70 L (0.90-2.90) K/uL [place] # (Auto) 0.00 (0.00-0.90) K/UL Eos # (Auto) 0.00 (0.00-0.50) K/uL Baso # (Auto) 0.00 (0.00-0.30) K/uL Abs Immat Gran (auto) 0.10 (0.00-0.30) K/uL Imm/Tot Granulo (auto) 4.2 % Sodium 137 (135-149) mmol/L Potassium 4.4 (3.6-5.1) mmol/L Chloride 102 (96-114) mmol/L Carbon Dioxide 21 (20-32) mmol/L Anion Gap 14 (7-15) mEq/L BUN 25 (7-30) mg/dL Creatinine 0.8 (0.5-1.5) mg/dL Estimated GFR 75 ml/min Glucose 116 H (60-115) mg/dL Lactate 5.8 H* (0.5-1.9) mmol/L Calcium 9.3 (8.4-10.6) mg/dL Total Bilirubin 2.0 H (0.1-1.5) mg/dL AST 36 H (12-35) U/L ALT 28 (4-35) U/L Alkaline Phosphatase 133 (40-150) U/L Total Protein 8.2 (6.0-8.3) g/dL Albumin 4.5 (3.3-5.0) g/dL Urine Color (Yellow) Urine Appearance (Clear) Urine pH (5.0-8.5) Ur Specific [place] (1.000-1.030) Urine Protein (Negative) Urine Glucose (UA) (Negative) Urine Ketones (Negative) Urine Blood (Negative) Urine Nitrite (Negative) Urine Bilirubin (Negative) Urine Urobilinogen (0.2-1.0) Ur Leukocyte Esterase (Negative) Urine RBC (0-2) Urine WBC (0-5) Ur Squamous Epith Cells (None-Few) Urine Bacteria (None) Urine Yeast (None) POC Creatinine 0.9 (0.6-1.3) mg/dl POC Troponin I 0.02 (0.01-0.04) ng/ml 05/09/24 05/09/24 05/09/24 Range/Units 13:15 16:53 Unknown WBC (4.50-11.00) K/uL RBC (4.00-5.20) m/uL Hgb (12.0-16.0) gm/dL Hct (33.0-51.0) % MCV (80-100) fL MCH (26-34) pg MCHC (32-36) gm/dL RDW Coeff of Mandi (11.5-15.5) % Plt Count (140-440) K/uL Neut % (Auto) (42.0-72.0) % Lymph % (Auto) (20-44) % [place] % (Auto) (0.0-11.0) % Eos % (Auto) (0.0-7.0) % Baso % (Auto) (0.0-3.0) % Neut # (Auto) (1.7-7.0) K/uL Lymph # (Auto) (0.90-2.90) K/uL [place] # (Auto) (0.00-0.90) K/UL Eos # (Auto) (0.00-0.50) K/uL Baso # (Auto) (0.00-0.30) K/uL Abs Immat Gran (auto) (0.00-0.30) K/uL Imm/Tot Granulo (auto) % Sodium (135-149) mmol/L Potassium (3.6-5.1) mmol/L Chloride (96-114) mmol/L Carbon Dioxide (20-32) mmol/L Anion Gap (7-15) mEq/L BUN (7-30) mg/dL Creatinine (0.5-1.5) mg/dL Estimated GFR ml/min Glucose (60-115) mg/dL Lactate 8.0 H* (0.5-1.9) mmol/L Calcium (8.4-10.6) mg/dL Total Bilirubin (0.1-1.5) mg/dL AST (12-35) U/L ALT (4-35) U/L Alkaline Phosphatase (40-150) U/L Total Protein (6.0-8.3) g/dL Albumin (3.3-5.0) g/dL Urine Color Yellow (Yellow) Urine Appearance Clear (Clear) Urine pH 6.0 (5.0-8.5) Ur Specific [place] 1.015 (1.000-1.030) Urine Protein Negative (Negative) Urine Glucose (UA) Negative (Negative) Urine Ketones Negative (Negative) Urine Blood 3+ A (Negative) Urine Nitrite Negative (Negative) Urine Bilirubin Negative (Negative) Urine Urobilinogen 0.2 (0.2-1.0) Ur Leukocyte Esterase 2+ A (Negative) Urine RBC 10-25 A (0-2) Urine WBC 5-10 A (0-5) Ur Squamous Epith Cells Few (None-Few) Urine Bacteria Moderate A (None) Urine Yeast Moderate A (None) POC Creatinine (0.6-1.3) mg/dl POC Troponin I 0.03 (0.01-0.04) ng/ml <Anahy Noel MD - Last Filed: 05/09/24 18:12> Imaging Data CT scan abdomen pelvis: Attestation: I have reviewed the pertinent imaging results. <Josef Emerson DO - Last Filed: 05/09/24 15:24> Radiologist's impression: 1. 0.5 cm calculus in the proximal right ureter, results in mild right hydronephrosis. 2. Normal appendix. 3. Extensive cholelithiasis. No secondary signs of acute cholecystitis. 4. Additional incidental findings as above. Please note that all CT scans at this facility use dose modulation, iterative reconstruction, and/or weight-based dosing when appropriate to reduce radiation dose to as low as reasonably achievable. Dictated by Matilda Finn MD @ 05/09/2024 12:21:59 PM <Josef Emerson DO - Last Filed: 05/09/24 15:24> ECG Data Attestation: I personally reviewed and interpreted this ECG as follows: <Josef langston DO - Last Filed: 05/09/24 15:24> Prior ECG tracings: available for review <Josef Emerson - Last Filed: 05/09/24 15:24> Interpretation: Sinus bradycardia rate 57 beats per minute, normal intervals, normal axis, no ST or T-wave abnormalities. There is a she right bundle-branch block. appears similar to previous EKG on file <Josef Eemrson - Last Filed: 05/09/24 15:24> Critical Care Time Critical Care Time Critical Care Time: Yes Attestation: The patient required my highest level preparedness to intervene emergently and I personally spent this critical care time directly and personally managing the patient. This critical care time included: Obtaining a history; Examining the patient; Pulse oximetry; Ordering and reviewing of studies; Arranging urgent treatment with development of a management plan; Evaluation of patients response to treatment; Frequent reassessment discussions with other providers. This critical care time was performed to assess and manage the high probability of imminent life-threatening deterioration that could result in multiorgan failure. It was exclusive of separate billable procedures and treating other patients and teaching time. <Josef Emerson - Last Filed: 05/09/24 15:24> Total Critical Care Time in Minutes: 60 <Josef Emerson - Last Filed: 05/09/24 15:24> Discharge Plan Discharge Clinical Impression: Acute UTI Sepsis Qualifiers: Sepsis type: sepsis due to unspecified organism Sepsis acute organ dysfunction status: with acute organ dysfunction Severe sepsis acute organ dysfunction type: unspecified Severe sepsis shock status: with septic shock Qualified Code(s): A41.9 - Sepsis, unspecified organism Urolithiasis Qualifiers: Urinary calculus location: ureter Qualified Code(s): N20.1 - Calculus of ureter <Josef Emerson DO - Last Filed: 05/09/24 15:24> Patient Disposition: [facility] <Josef Emerson, - Last Filed: 05/09/24 15:24> Condition: Critical <Josef Emerson DO - Last Filed: 05/09/24 15:24> Prescriptions: No Action oxycodone 5 mg tablet 2.5 mg PO TID PRN (Reason: pain) Qty: 7 0RF terbinafine HCl [Athlete's Foot (terbinafine)] 1 % cream 1 applic topical BID Qty: 30 0RF nitroglycerin 0.4 mg tablet, sublingual 0.4 mg sublingual Q5M Qty: 25 0RF clopidogrel 75 mg tablet 75 mg PO DAILY Qty: 90 0RF lisinopril 2.5 mg tablet 2.5 mg PO DAILY Qty: 90 0RF furosemide 20 mg tablet 20 mg PO DAILY Qty: 90 0RF metoprolol succinate 25 mg tablet extended release 24 hr 12.5 mg PO DAILY Qty: 45 0RF rosuvastatin 10 mg tablet 10 mg PO QDAY Qty: 90 0RF acetaminophen 325 mg tablet 650 mg PO TID PRN (Reason: pain) Qty: 100 4RF <Josef Emerson DO - Last Filed: 05/09/24 15:24> Stand Alone Forms: [facility] Info Instructions <Josef Emerson DO - Last Filed: 05/09/24 15:24>
[2024-05-09] MEDS: MORPHINE 4 MG/ML INJ IVP (09:29)
--- OUTSIDE RECORDS SUMMARY | 2024-05-09 09:36 | XMS_ITS | Clinical Summary ---
Author Organization [facility] Address [address] [address] Care Team Providers Care Floor Care Specialist Name Role Phone No Primary/Referring, Felipe Primary Care Provider Unavailable Source Comments You are receiving this document as you are listed as the primary care provider,follow-up provider, or the patient has been referred to you for consultation.This is in compliance with the Medicare and[facility] Incentive [facility],which states Providers who transition their patient to another setting of careor provider of care or refers their patient to another provider of care shouldprovide summary care record for each transition of care or referral. 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 Lino Resolved Problems Problem Noted Date Diagnosed Date Resolved Date Complicated UTI (urinary tract infection) 08/27/2023 02/25/2024 Social History Tobacco Use Types Packs/Day Years Used Date Smoking Tobacco: Never Smokeless Tobacco: Never Tobacco Cessation:Counseling Given: Not Answered [facility] Utilities Answer Date Recorded In the past 12 months has e [place], gas, oil, or water company threatened to [...] Zoster/Shingles (1 of 2) 1994 Dexa 2009 RSV (1 - 1-dose 75+ series) 09/16/2019 COVID-19 Vaccine (3 - season) 2024 08/31/2020, 08/10/2020 Influenza (#1) 2024 04/15/2020, 02/27, [...] on patient's age to complete this topic Infant RSV Aged Out No longer eligi ble based on patient's age to complete this topic MCV4 Aged Out No longer eligi ble based on patient's age to complete this topic Medical Devices Implanted Type Area Plasma Cutting Machine Operator Device Identifier Shelf Expiration Date Model / Serial / Lot Stent Ureteral Ultra 6x22 - Polaris - [id number] Implanted:Qty: 1 on 09/29/2023 by Jose Gee MD at [facility] DEVICE Left: URETER [employer] 05/14/2026 [id number] / / [id number] Explanted Type Area Plasma Cutting Machine Operator Device Identifier Shelf Expiration Date Model / Serial / Lot Stent Ureteral Ultra 6x22 - Polaris - [id number] Implanted:Qty: 1 on 08/27/2023 by Mira Price MD at [facility] Explanted:Qty: 1 on 09/29/2023 by Jose Gee MD at [facility] DEVICE Left: URETER [employer] 04/01/2026 [id number] / / [id number] Advance Directives * Full Code (Latest Code [...] 3:52 AM 08/27/2023 5:53 AM Care Teams Floor Care Specialist Relationship Specialty Start Date End Date No Primary/Referring, Phy PCP - General 08/26/23
--- OUTSIDE RECORDS SUMMARY | 2024-05-09 09:36 | XMS_ITS | Clinical Summary ---
Author Organization [facility] Address [place], [place] [address] Care Team Providers Care Kennel Helper Name Role Phone John San MD Primary Care Provider [phone] Allergies No known active allergies Medications Medication Sig Dispensed Refills Start Date End Date Status furosemide (LASIX) 20 mg tablet Take 1 tablet by mouth every morning. 0 04/18/2020 Active clopidogreL (PLAVIX) 75 mg tabletIndications: NSTEMI (non-ST elevated myocardial infarction) (HC) Take 1 Tablet (75 mg) by mouth once daily. Take for 1 year or otherwise directed by your metal trim erector 30 Tablet 11/13/2022 Active lisinopriL (PRINIVIL; ZESTRIL) 2.5 mg tablet Take 2.5 mg by mouth once daily. Active metoprolol succinate SR (TOPROL XL) 12.5 mg as half tablet Take 12.5 mg by mouth once daily. Active oxyCODONE (ROXICODONE) 5 mg immediate release tabletIndications: Nephrolithiasis Take ONE-HALF Tablet (2.5 mg) by mouth every 4 hours if needed for Pain (For moderate to severe pain.). 5 Tablet 12/27/2023 Active acetaminophen (TYLENOL) 325 mg tablet Take 650 mg by mouth 3 times daily if needed. Max acetaminophen dose: 4000mg in 24 hrs. Active nitroglycerin (NITROSTAT) 0.[address] 0.4 mg under the tongue every 5 minutes if needed. 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 Zoie Moses post [place] 02/06/2010 CAD sp NSTEMI (non-ST elevated myocardial infarc tion) 02/05/2010 Overview (02/18/2010): - 02/05/10 presented to [place] ED with severe SOTO, developed chest pain, EKG showed anterolateral ST/T changes, and high troponins, transferred to [facility] 02/05/10 for further evaluation - [...] e alcohol) Social Connections Answer Date Recorded Do you often feel lonely or isolated from those around you? 0 12/26/2023 Financial Resource Strain Answer Date R ecorded Difficulty of Paying Living Expenses 3 12/26/2023 Difficulty of Paying Living Expenses Not on file 12/26/2023 Food Insecurity Answer Date Recorded Do you worry your food will run out before you are able to buy more? 1 12/26/2023 Transportation Needs Answer Date Record ed Does lack of transportation keep you from medica l appointments? 1 12/26/2023 Does lack of transportation keep you from work, meetings or getting things that you need? 1 12/26/2023 Housing Stability Answer Date Recorded What is your housing situation today? 1 12/26/2023 Sex and Gender Information Value Date Recorded Sex Assigned at Not on file Gender Identity Not on file Sexual Orientation Not on file Obstetrics History Last Filed Vital Signs Vital Sign Reading Time Taken Comments Blood Pressure 107/65 01/17/2024 3:00 PM CDT Pulse 77 01/17/2024 3:00 PM CDT Temperature 37 ??C (98.6 ??F) 01/17/2024 3:00 PM CDT Respiratory Rate 14 01/17/2024 3:00 PM CDT Oxygen Saturation 97% 01/17/2024 3:00 PM CDT Inhaled Oxygen Concentration - - Weight 53.1 kg (117 lb) 01/17/2024 8:59 AM CDT Height 149.9 cm (4' 11) 01/17/2024 8:59 AM CDT Body Mass Index 23.63 01/17/2024 8:59 AM CDT Plan of Treatment Health Maintenance [...] (2 of 2 - PCV) 02/12/2011 02/12/2010 RSV vaccine for adults or pr egnancy (1 - 1-dose 75+ series) 09/16/2019 BMI (ht and wt on same day) for age 18+ 04/17/2021 1 COVID-19 vaccine series ( season) 2024 08/31/2020, 08/10/2020 Influenza for age 65+ 02/27/2024 03/18/2010 Medical Devices Implanted Type Area Tailings Worker Device Identifier Shelf Expiration Date Model / Serial / Lot Iol [place] +24.5 Tecnis Zcb00 - [id number] Implanted:Qty: 1 on 08/25/2017 by Chidi Hadley MD at [facility] Left: Eye [employer] 06/11/2021 [id number]# / [id number] / Iol [place] +24.5 Tecnis Zcb00 - [id number] Implanted:Qty: 1 on 2017 by Chidi Hadley MD at [facility] Right: Eye [employer] 05/31/2021 ZCB00# / [id number] / Stent Uret [id number] Contour - [id number] Implanted:Qty: 1 on 12/24/2023 by Chriss Stock MD at [facility] Left: Ureter [facility] 09/02/2026 [id number] / / [id number] Stent Uret [id number] Contour - [id number] Implanted:Qty: 1 on 01/17/2024 by Chriss Stock MD at [facility] Left: Ureter [employer] [facility] 12/20/2025 [id number] Advance Directives * Full Code (Latest Code Status on File) Date Activated Date Inactivated Comments 01/17/2024 8:32 AM 01/17/2024 6:06 PM Question Answer Comments Code Status Discussion: Unable to Assess Preferences, Provider to review later * Full Code Date Activated Date Inactivated Comments 12/24/2023 2:29 [...] Answer Comments Code Status Discussion: Not Discussed Care Teams Kennel Helper Relationship Specialty Start Date End Date John San MD [address] [place] [id number] PCP - General Family Practice 11/12/22
[2024-05-09 09:46] LABS: Creatinine, Point-of-Care* 0.9 mg/dl (0.6-1.3)
[2024-05-09 09:48] LABS: Basophils Percent Auto 0.4 % (0.0-3.0); Eosinophils Percent Auto 0.4 % (0.0-7.0); Hematocrit 52.5 % (33.0-51.0); Hemoglobin* 16.1 gm/dL (12.0-16.0); Immature Granulocytes Pct Auto 4.2 %; Lymphocytes Percent Auto 30.1 % (20-44); Mean Corpuscular HGB Conc 31 gm/dL (32-36); Mean Corpuscular Hemoglobin 29 pg (26-34); Mean Corpuscular Volume 95 fL (80-100); Monocytes Percent Auto 0.8 % (0.0-11.0); Neutrophils Percent Auto 64.1 % (42.0-72.0); Platelet Count* 136 K/uL (140-440); RDW Coefficient of Variation % 15.7 % (11.5-15.5); Red Blood Count 5.54 m/uL (4.00-5.20); White Blood Count* 2.36 K/uL (4.50-11.00)
[2024-05-09 09:58] LABS: Troponin, Point-of-Care* 0.02 ng/ml (0.01-0.04)
[2024-05-09 09:59] LABS: Slide Review Reflex No
[2024-05-09 10:02] LABS: Albumin* 4.5 g/dL (3.3-5.0); Chloride* 102 mmol/L (96-114); Potassium* 4.4 mmol/L (3.6-5.1); Sodium* 137 mmol/L (135-149)
[2024-05-09 10:04] LABS: Creatinine* 0.8 mg/dL (0.5-1.5); Estimated Glomerular Filt Rate 75 ml/min
[2024-05-09 10:05] LABS: Alanine Aminotransferase* 28 U/L (4-35); Alkaline Phosphatase* 133 U/L (40-150); Anion Gap 14 mEq/L (7-15); Aspartate Amino Transferase* 36 U/L (12-35); Blood Urea Nitrogen* 25 mg/dL (7-30); Carbon Dioxide* 21 mmol/L (20-32); Glucose* 116 mg/dL (60-115); Total Protein* 8.2 g/dL (6.0-8.3)
[2024-05-09 10:06] LABS: Calcium* 9.3 mg/dL (8.4-10.6)
[2024-05-09] MEDS: KETOROLAC 30 MG/ML inj IM (10:20)
[2024-05-09] MEDS: fentaNYL 100 MCG/2 ML inj 50 MCG NOSTRIL-L (10:35)
[2024-05-09] MEDS: 0.9 % SODIUM CHLORIDE 500 ML 500 ML 1000 ML IV ×5 (12:06→17:50)
[2024-05-09 13:33] LABS: Lactate* 5.8 mmol/L (0.5-1.9)
[2024-05-09 13:35] LABS: Appearance Urine Clear (Clear); Bacteria Urine Moderate; Bilirubin Urine Negative (Negative); Blood Urine 3+ (Negative); Color Urine Yellow (Yellow); Glucose Urine Negative (Negative); Ketones Urine Negative (Negative); Leukocyte Esterase Urine 2+ (Negative); Nitrite Urine Negative (Negative); Protein Urine Negative (Negative); Specific Gravity Urine 1.015 (1.000-1.030); Squamous Epithelial Cell Urine Few (None-Few); Urobilinogen Urine 0.2 (0.2-1.0)
[2024-05-09 13:43] LABS: Troponin, Point-of-Care* 0.03 ng/ml (0.01-0.04)
[2024-05-09] MEDS: cefTRIAXone 1 GM in 0.9 % SODIUM CHLORIDE Mini-bag 100 ML IVPB (14:04)
[2024-05-09] MEDS: fentaNYL 100 MCG/2 ML inj 50 MCG IVP (15:01)
[2024-05-09] MEDS: fentaNYL 100 MCG/2 ML inj 25 MCG IVP (15:45)
[2024-05-09] MEDS: HYDROmorphone 0.5 mg/0.5 ml inj IVP (16:02)
[2024-05-09] MEDS: KETOROLAC 30 MG/ML inj IVP (17:01)
[2024-05-09] MEDS: CALCIUM GLUC 1,000MG/50 ML 1,000 MG/50 ML BAG 100 MG IVPB (17:50)
[2024-05-09] MEDS: PIPERACILLIN/TAZOBACTAM 3.375 GM in 0.9 % SODIUM CHLORIDE Mini-bag 100 ML IVPB (18:00)
== END 2024-05-09 18:20 | disposition short-term general hospital (02) ==
PROVIDERS: Emergency Provider Student in an Organized Health Care Education/Training Program; PCP Family Medicine
DX: A41.9 Sepsis, unspecified organism (principal); N39.0 Urinary tract infection, site not specified; N20.9 Urinary calculus, unspecified
CPT/HCPCS: 36415; 74177; 80053; 81001; 82565; 83605; 84484; 85025; 87040; 87086; 87186; 94761; 96365; 96375; 99285; 99291; J0613; J0696; J1171; J1885; J2270; J2543; J3010; J7030; J7050; Q9967

== ENCOUNTER 2024-05-09 17:15 | Outpatient (CLI) | payer MEDICARE, MEDICAID, SELFPAY ==
--- OUTSIDE RECORDS SUMMARY | 2024-05-13 19:35 | XMS_ITS | Clinical Summary ---
Author Organization [email or web address] [facility] Address [place], [place] [address] Care Team Providers Care Chemistry Laboratory Technician Name Role Phone John San MD Primary Care Provider [phone] Allergies No known active allergies Medications Medication Sig Dispensed Refills Start Date End Date Status furosemide (LASIX) 20 mg tablet Take 20 mg by mouth once daily. 0 04/18/2020 Suspended clopidogreL (PLAVIX) 75 mg tabletIndicatio ns:NSTEMI (non-ST elevated myocardial infarction) (HC) Take 1 Tablet (75 mg) by mouth once daily. Take for 1 year or otherwise directed by your environmental services director 30 Tablet 11/13/2022 4 Discontinued( Other - add note to specify (E-cancel not sent)) lisinopriL (PRINIVIL; ZESTRIL) 2.5 mg tablet Take 2.5 mg by mouth once daily. Suspended metoprolol succinate SR (TOPROL XL) 12.5 mg as half tablet Take 12.5 mg by mouth once daily. Suspended oxyCODONE (ROXICODONE) 5 mg immediate release tabletIndicatio ns:Nephrolithia sis Take ONE-HALF Tablet (2.5 mg) by mouth every 4 hours if needed for Pain (For moderate to severe pain.). 5 Tablet 12/27/2023 4 Discontinued( Other - add note to specify (E-cancel not sent)) acetaminophen (TYLENOL) 325 mg tablet Take 650 mg by mouth 3 times daily if needed. Max acetaminophen dose: 4000mg in 24 hrs. Suspended nitroglycerin (NITROSTAT) 0.[address] 0.4 mg under the tongue every 5 minutes if needed. 08/04/2023 4 Discontinued( Other - add note to specify (E-cancel not sent)) rosuvastatin (CRESTOR) 10 mg tablet Take 10 mg by mouth at bedtime. Suspended gabapentin (NEURONTIN) 300 mg capsule Take 300 mg by mouth 3 times daily if needed. 4 Discontinued( Other - add note to specify (E-cancel not sent)) clopidogreL (PLAVIX) 75 mg tablet Take 75 mg by mouth once daily. Suspended Active Problems Problem Noted Date Diagnosed Date Acute non-ST elevation myocardial infarction (NS SIM) 05/10/2024 Dehydration 05/10/2024 Diarrhea 05/10/2024 Disease due to severe acute respiratory syndrome coronavirus 2 (SARS-CoV-2) 05/10/2024 History of cataract extraction 05/10/2024 History of migraine 05/10/2024 Hyperlipidemia 05/10/2024 Left ventricular hypertrophy 05/10/2024 Lumbar radiculopathy 05/10/2024 Lumbar stenosis 05/10/2024 Restless leg 05/10/2024 Cholelithiasis 05/10/2024 BETTY (acute kidney injury) 05/10/2024 Lactic acidosis 05/10/2024 Septic shock 05/10/2024 Acute respiratory failure with hypoxia Shock, septic, Gram negative 05/09/2024 Nephrolithiasis 12/24/2023 Anemia 12/24/2023 Thrombocytopenia 12/24/2023 Essential hypertension 08/27/2023 Hydronephrosis of left kidney 08/27/2023 Left ureteral stone 08/27/2023 Abnormal cardiovascular stress test 05/07/2020 Chronic heart failure with preserved ejection fr action 05/07/2020 SOB (shortness of breath) 05/03/2020 Fatigue 05/03/2020 Moderate-severe tricuspid valve regurgitation Severe mitral regurgitation 04/18/2020 Dermatochalasis of both upper eyelids 11/26/2017 Cataract, nuclear sclerotic senile, bilateral Dermatochalasis of both upper eyelids 07/30/2017 Coronary artery disease 05/30/2014 Dyslipidemia 05/30/2014 Weakness 11/15/2010 Chest pain, unspecified 05/29/2010 Vascular disease 03/31/2010 Postmenopausal 02/18/2010 Postsurgical aortocoronary bypass status 010 Overview (05/10/2024): 02/05/10 CAB x 3 (LUNA-LAD, SV-OM, SV-PLB) and endoscopic vein harvest (left leg) per Dr. Lino 02/05/10 CAB x 3 (LUNA-LAD, SV-OM, SV-PLB) and endoscopic vein harvest (left leg) per Dr. Lino Hyperglycemia post ID 02/06/2010 CAD sp NSTEMI (non-ST elevated myocardial infarc tion) 02/05/2010 Overview (02/18/2010): - 02/05/10 presented to [place] ED with severe SOTO, developed chest pain, EKG showed anterolateral ST/T changes, and high troponins, transferred to [facility] 02/05/10 for further evaluation - 02/05/10 Angio: severe 3VD, had CABG February 13, 2010. Her postoperative echo demonstrated normal systolic function of 70% without wall motion abnormalities. There was some concern about increased wall thicknesses so she underwent a cardiac MRI that was essentially normal. On ASA metoprolol zocor History of myocardial infarction 02/04/2010 Cervical spondylosis without myelopathy 10/06/19 08 Age-related hypermature cataract of left eye Resolved Problems Problem Noted Date Diagnosed Date Resolved Date Pneumonia 05/10/2024 05/10/2024 UTI (urinary tract infection) 12/24/2023 05/10/2024 Bacteremia 12/24/2023 05/10/2024 UTI (lower urinary tract infection) 11/15/2010 05/10/2024 Pain in joint, shoulder region 11/15/2010 05/10/2024 Chest pain, unspecified 05/28/2010 12/06/2009 Postoperative anemia due to acute blood loss 0 03/18/2010 UTI (lower urinary tract infection) 02/06/2010 02/18/2010 Cholecystitis with cholelithiasis 02/05/2010 02/18/2010 Migraine 02/05/2010 02/18/2010 Impacted cerumen 10/06/2007 02/18/2010 Encounters Date Type Department Care Team Description 05/09/2024 9:08 PM ELECTRICITY TRADING ANALYST Anesthesia Event [facility] [address] [place] [address] Fidencio Coello MD Kimbrell, Tresa Wagner CRNA 05/09/2024 6:59 PM ELECTRICITY TRADING ANALYST - Present Hospital Encounter [facility] [address] [place] [address] Allyson Sharma, DO Residents, Icu Osmel Barriga MD Wolfe, John Bear MD from Last 3 Months Immunizations Name [...] Sign Reading Time Taken Comments Blood Pressure 112/72 05/13/2024 7:30 PM ELECTRICITY TRADING ANALYST Pulse 65 05/13/2024 7:30 PM ELECTRICITY TRADING ANALYST Temperature 36.1 ??C (97 ??F) 05/13/2024 6:00 PM ELECTRICITY TRADING ANALYST Respiratory Rate 17 05/13/2024 7:30 PM ELECTRICITY TRADING ANALYST Oxygen Saturation 97% 05/13/2024 7:30 PM ELECTRICITY TRADING ANALYST Inhaled Oxygen Concentration - - Weight 66.7 kg (147 lb 0.8 oz) 05/13/2024 6:00 A M ELECTRICITY TRADING ANALYST Height 149.9 cm (4' 11) 05/09/2024 7:00 PM ELECTRICITY TRADING ANALYST Body Mass Index 29.7 05/09/2024 7:00 PM ELECTRICITY TRADING ANALYST Plan of Treatment Health Maintenance Due Date [...] 18+ 04/17/2021 1 COVID-19 vaccine series ( - season) 2024 08/31/2020, 08/10/2020 Influenza for age 65+ 02/27/2024 03/18/2010 Medical Devices Implanted Type Area Storage Specialist Device Identifier Shelf Expiration Date Model / Serial / Lot Iol [place]us +24.5 Tecnis [id number] - [id number] Implanted:Qty: 1 on 08/25/2017 by Chidi Hadley MD at [facility] Left: Eye [employer] 06/11/2021 [id number]# / [id number] / Iol [place] +24.5 Tecnis Zcb00 - [id number] Implanted:Qty: 1 on 2017 by Chidi Hadley MD at [facility] Right: Eye [employer] 05/31/2021 [id number]# / [id number] / Stent Uret [id number] Contour - [id number] Implanted:Qty: 1 on 12/24/2023 by Chriss Stock MD at [facility] Left: Ureter [facility] 09/02/2026 [id number] / / [id number] Stent Uret [id number] Contour - [id number] Implanted:Qty: 1 on 01/17/2024 by Chriss Stock MD at [facility] Left: Ureter [facility] 12/20/2025 [id number] / / [id number] Procedures The patient is currently admitted. The information in this section might not be complete until the patient is discharged. Procedure Name Priority Date/Time Associated Diagnosis Comments SCAN-CARDIAC STRIP 05/13/2024 7:14 PM ELECTRICITY TRADING ANALYST GLUCOSE METER Timed 05/13/2024 3:54 PM ELECTRICITY TRADING ANALYST CALCIUM IONIZED HOSPITAL DRAW ONLY Timed 05/13/2024 3:49 PM ELECTRICITY TRADING ANALYST O2 SATURATION,MEASURED Today 4 3:49 PM ELECTRICITY TRADING ANALYST LACTATE VENOUS LINDA 05/13/2024 3:49 PM ELECTRICITY TRADING ANALYST BLOOD GAS,VENOUS Timed 05/13/2024 3:49 PM ELECTRICITY TRADING ANALYST O2 SATURATION,MEASURED Today 4 11:57 AM ELECTRICITY TRADING ANALYST GLUCOSE METER Timed 05/13/2024 11:55 AM ELECTRICITY TRADING ANALYST O2 SATURATION,MEASURED Today 4 11:07 AM ELECTRICITY TRADING ANALYST LACTATE VENOUS LINDA 05/13/2024 11:07 AM ELECTRICITY TRADING ANALYST NON-CARDIAC THROMBOELASTOGRAPHY LINDA 05/13/2024 11:07 AM ELECTRICITY TRADING ANALYST SCAN-CARDIAC STRIP 05/13/2024 8:35 AM ELECTRICITY TRADING ANALYST GLUCOSE METER Timed 05/13/2024 8:29 AM ELECTRICITY TRADING ANALYST TROPONIN T (HS) ONE TIME LINDA 024 5:32 AM ELECTRICITY TRADING ANALYST PLATELET ESTIMATE Timed 05/13/2024 5:32 AM ELECTRICITY TRADING ANALYST HEPATIC FUNCTION PANEL Early AM 5:32 AM ELECTRICITY TRADING ANALYST CREATININE Early AM 05/13/2024 5:32 AM ELECTRICITY TRADING ANALYST BUN Early AM 05/13/2024 5:32 AM ELECTRICITY TRADING ANALYST CBC W PLT NO DIFF Early AM 05/13/2024 5:32 AM ELECTRICITY TRADING ANALYST POTASSIUM Early AM 05/13/2024 5:32 AM ELECTRICITY TRADING ANALYST MAGNESIUM Early AM 05/13/2024 5:32 AM ELECTRICITY TRADING ANALYST LACTATE VENOUS Timed 05/13/2024 5:32 AM ELECTRICITY TRADING ANALYST CALCIUM IONIZED [facility]OSPITAL DRAW ONLY Timed 05/13/2024 5:32 AM ELECTRICITY TRADING ANALYST O2 SATURATION,MEASURED Today 5:32 AM ELECTRICITY TRADING ANALYST BLOOD GAS,VENOUS Timed 05/13/2024 5:32 AM ELECTRICITY TRADING ANALYST TRANSFUSE PLT (NURSE COMMUNICATION ORDER) Today 05/13/2024 4:53 AM ELECTRICITY TRADING ANALYST GLUCOSE METER Timed 05/13/2024 4:46 AM ELECTRICITY TRADING ANALYST TYPE & SCREEN Today 05/13/2024 3:00 AM ELECTRICITY TRADING ANALYST PLATELET ORDER Today 05/13/2024 2:44 AM ELECTRICITY TRADING ANALYST PLATELET EA UNIT Today 05/13/2024 2:42 AM ELECTRICITY TRADING ANALYST GLUCOSE METER Timed 05/13/2024 12:33 AM ELECTRICITY TRADING ANALYST SCAN-CARDIAC STRIP 05/12/2024 10:00 PM ELECTRICITY TRADING ANALYST PHOSPHORUS Timed 05/12/2024 8:32 PM ELECTRICITY TRADING ANALYST ELECTROLYTE PANEL Timed 05/12/2024 8:32 PM ELECTRICITY TRADING ANALYST CALCIUM IONIZED [facility]OSPITAL DRAW ONLY Timed 05/12/2024 8:32 PM ELECTRICITY TRADING ANALYST LACTATE VENOUS Timed 05/12/2024 8:32 PM ELECTRICITY TRADING ANALYST GLUCOSE METER Timed 05/12/2024 8:31 PM ELECTRICITY TRADING ANALYST GLUCOSE METER Timed 05/12/2024 5:34 PM ELECTRICITY TRADING ANALYST D-DIMER,QUANTITATIVE LINDA 05/12/2024 5:27 PM ELECTRICITY TRADING ANALYST HAPTOGLOBIN LINDA 05/12/2024 5:27 PM ELECTRICITY TRADING ANALYST FIBRINOGEN,QUANTITATIVE LINDA 05/12/20 24 5:27 PM ELECTRICITY TRADING ANALYST BLOOD GAS,VENOUS Timed 05/12/2024 5:04 PM ELECTRICITY TRADING ANALYST (IA) AMB CONSULT TO VOCATIONAL/APRIL REHABILITATION Routine 05/12/2024 4:25 PM ELECTRICITY TRADING ANALYST EKG 12 LEAD STAT 05/12/2024 3:52 PM ELECTRICITY TRADING ANALYST XR CHEST 1 VIEW PORTABLE LINDA 024 3:38 PM ELECTRICITY TRADING ANALYST US ARTERIAL UPPER EXTREMITY BILATERAL PORTABLE STAT 05/12/2024 2:08 PM ELECTRICITY TRADING ANALYST Procedure Note - Milo Salazar, DO - 05/12/2024 2:08 PM CSTThis note is in progress. --- Preliminary Report --- --US ARTERIAL UPPER EXTREMITY BILATERAL PORTABLE ANGIO-- Preliminary report : . Bilateral upper extremity arterial ultrasound. . Visualized bilateral upper extremity arterial vasculature is patent.Nonvisualization of the mid right radial artery due to IV dressing. . Dictated by Milo Salazar MD @ 05/12/2024 2:24:10 PM Preliminary Report by Dr. Milo Salazar @ May 12 2024 2:24PM --- Preliminary Report --- LACTATE VENOUS Timed 05/12/2024 2:03 PM ELECTRICITY TRADING ANALYST XR CHEST 1 VIEW PORTABLE Routine 024 12:15 PM ELECTRICITY TRADING ANALYST SCAN CORRESP-LABORATORY RESULTS 05/12/2024 12:08 PM ELECTRICITY TRADING ANALYST GLUCOSE METER Timed 05/12/2024 11:53 AM ELECTRICITY TRADING ANALYST GLUCOSE METER Timed 05/12/2024 8:01 AM ELECTRICITY TRADING ANALYST LACTATE VENOUS Timed 05/12/2024 8:01 AM ELECTRICITY TRADING ANALYST SCAN-CARDIAC STRIP 05/12/2024 7:32 AM ELECTRICITY TRADING ANALYST GLUCOSE METER Timed 05/12/2024 5:41 AM ELECTRICITY TRADING ANALYST O2 SATURATION,MEASURED Today 5:39 AM ELECTRICITY TRADING ANALYST BLOOD GAS,VENOUS Timed 05/12/2024 5:39 AM ELECTRICITY TRADING ANALYST LACTATE VENOUS Timed 05/12/2024 4:49 AM ELECTRICITY TRADING ANALYST PHOSPHORUS Early AM 05/12/2024 4:49 AM ELECTRICITY TRADING ANALYST BASIC METABOLIC PANEL Early AM 05/12/2024 4:49 AM ELECTRICITY TRADING ANALYST CBC W PLT NO DIFF Early AM 05/12/2024 4:49 AM ELECTRICITY TRADING ANALYST HEPATIC FUNCTION PANEL Early AM 4 4:49 AM ELECTRICITY TRADING ANALYST PROTIME-INR Early AM 05/12/2024 4:49 AM ELECTRICITY TRADING ANALYST TROPONIN T (HS) ONE TIME Early AM 4:49 AM ELECTRICITY TRADING ANALYST MAGNESIUM Early AM 05/12/2024 4:49 AM ELECTRICITY TRADING ANALYST [facility]ONIZED [facility]OSP[facility] DRAW ONLY Timed 05/12/2024 4:49 AM ELECTRICITY TRADING ANALYST LACTATE VENOUS Timed 05/12/2024 2:06 AM ELECTRICITY TRADING ANALYST GLUCOSE METER Timed 05/12/2024 1:55 AM ELECTRICITY TRADING ANALYST SCAN-CARDIAC STRIP 05/12/2024 12:07 AM ELECTRICITY TRADING ANALYST GLUCOSE METER Timed 05/11/2024 10:02 PM ELECTRICITY TRADING ANALYST BASIC METABOLIC PANEL Timed 05/11/2024 7:55 PM ELECTRICITY TRADING ANALYST LACTATE VENOUS Timed 05/11/2024 7:55 PM ELECTRICITY TRADING ANALYST GLUCOSE METER Timed 05/11/2024 5:55 PM ELECTRICITY TRADING ANALYST LACTATE VENOUS Timed 05/11/2024 5:21 PM ELECTRICITY TRADING ANALYST O2 SATURATION,MEASURED Today 5:21 PM ELECTRICITY TRADING ANALYST [facility]ONIZED [facility]OSP[facility] DRAW ONLY Timed 05/11/2024 5:21 PM ELECTRICITY TRADING ANALYST BLOOD GAS,VENOUS Timed 05/11/2024 5:21 PM ELECTRICITY TRADING ANALYST EKG 12 LEAD LINDA 05/11/2024 4:32 PM ELECTRICITY TRADING ANALYST SCAN-CARDIAC STRIP 05/11/2024 2:59 PM ELECTRICITY TRADING ANALYST GLUCOSE METER Timed 05/11/2024 2:38 PM ELECTRICITY TRADING ANALYST LACTATE VENOUS LINDA 05/11/2024 2:31 PM ELECTRICITY TRADING ANALYST TROPONIN T (HS) ONE TIME Today 11/14/2 024 2:31 PM ELECTRICITY TRADING ANALYST GLUCOSE METER Timed 05/11/2024 12:48 PM ELECTRICITY TRADING ANALYST BLOOD GAS,VENOUS Timed 05/11/2024 12:48 PM ELECTRICITY TRADING ANALYST LACTATE VENOUS LINDA 05/11/2024 12:48 PM ELECTRICITY TRADING ANALYST O2 SATURATION,MEASURED Today 12:48 PM ELECTRICITY TRADING ANALYST SCAN CORRESP-LABORATORY RESULTS 05/11/2024 12:01 PM ELECTRICITY TRADING ANALYST SCAN CORRESP-IMAGING 05/11/2024 12:01 PM ELECTRICITY TRADING ANALYST GLUCOSE METER Timed 05/11/2024 11:37 AM ELECTRICITY TRADING ANALYST GLUCOSE METER Timed 05/11/2024 10:21 AM ELECTRICITY TRADING ANALYST PROTIME-INR LINDA 05/11/2024 10:12 AM ELECTRICITY TRADING ANALYST LACTATE VENOUS LINDA 05/11/2024 10:12 AM ELECTRICITY TRADING ANALYST GLUCOSE METER Timed 05/11/2024 8:57 AM ELECTRICITY TRADING ANALYST O2 SATURATION,MEASURED Today 8:53 AM ELECTRICITY TRADING ANALYST ARTERIAL BLOOD GAS Today 05/11/2024 8:53 AM ELECTRICITY TRADING ANALYST SCAN-CARDIAC STRIP 05/11/2024 7:38 AM ELECTRICITY TRADING ANALYST GLUCOSE METER Timed 05/11/2024 6:25 AM ELECTRICITY TRADING ANALYST GLUCOSE METER Timed 05/11/2024 6:24 AM ELECTRICITY TRADING ANALYST GLUCOSE METER Timed 05/11/2024 5:26 AM ELECTRICITY TRADING ANALYST PLATELET ESTIMATE Timed 05/11/2024 4:07 AM ELECTRICITY TRADING ANALYST BASIC METABOLIC PANEL Early AM 05/11/2024 4:07 AM ELECTRICITY TRADING ANALYST [facility]ONIZED [facility]OSP[facility] DRAW ONLY Timed 05/11/2024 4:07 AM ELECTRICITY TRADING ANALYST CBC W PLT NO DIFF Early AM 05/11/2024 4:07 AM ELECTRICITY TRADING ANALYST PHOSPHORUS Early AM 05/11/2024 4:07 AM ELECTRICITY TRADING ANALYST MAGNESIUM Early AM 05/11/2024 4:07 AM ELECTRICITY TRADING ANALYST HEPATIC FUNCTION PANEL Early AM 4:07 AM ELECTRICITY TRADING ANALYST VANCOMYCIN Early AM 05/11/2024 4:07 AM ELECTRICITY TRADING ANALYST O2 SATURATION,MEASURED Today 4:07 AM ELECTRICITY TRADING ANALYST ARTERIAL BLOOD GAS Today 05/11/2024 4:07 AM ELECTRICITY TRADING ANALYST GLUCOSE METER Timed 05/11/2024 4:01 AM ELECTRICITY TRADING ANALYST GLUCOSE METER Timed 05/11/2024 3:19 AM ELECTRICITY TRADING ANALYST GLUCOSE METER Timed 05/11/2024 2:14 AM ELECTRICITY TRADING ANALYST POTASSIUM Timed 05/11/2024 1:36 AM ELECTRICITY TRADING ANALYST GLUCOSE METER Timed 05/11/2024 1:10 AM ELECTRICITY TRADING ANALYST GLUCOSE METER Timed 05/11/2024 1:08 AM ELECTRICITY TRADING ANALYST GLUCOSE METER Timed 05/11/2024 12:13 AM ELECTRICITY TRADING ANALYST O2 SATURATION,MEASURED Today 12:09 AM ELECTRICITY TRADING ANALYST ARTERIAL BLOOD GAS Today 05/11/2024 12:09 AM ELECTRICITY TRADING ANALYST SCAN-CARDIAC STRIP 05/10/2024 10:54 PM ELECTRICITY TRADING ANALYST [facility]ONIZED [facility]OSPITAL DRAW ONLY Timed 05/10/2024 10:41 PM ELECTRICITY TRADING ANALYST GLUCOSE METER Timed 05/10/2024 10:39 PM ELECTRICITY TRADING ANALYST GLUCOSE METER Timed 05/10/2024 9:19 PM ELECTRICITY TRADING ANALYST BASIC METABOLIC PANEL Today 05/10/2024 8:15 PM ELECTRICITY TRADING ANALYST MAGNESIUM Timed 05/10/2024 8:15 PM ELECTRICITY TRADING ANALYST O2 SATURATION,MEASURED Today 8:15 PM ELECTRICITY TRADING ANALYST ARTERIAL BLOOD GAS Today 05/10/2024 8:15 PM ELECTRICITY TRADING ANALYST LACTATE ARTERIAL Timed 05/10/2024 8:15 PM ELECTRICITY TRADING ANALYST GLUCOSE METER Timed 05/10/2024 7:18 PM ELECTRICITY TRADING ANALYST GLUCOSE METER Timed 05/10/2024 5:05 PM ELECTRICITY TRADING ANALYST O2 SATURATION,MEASURED Today 3:39 PM ELECTRICITY TRADING ANALYST ARTERIAL BLOOD GAS Today 05/10/2024 3:39 PM ELECTRICITY TRADING ANALYST LACTATE ARTERIAL Timed 05/10/2024 3:39 PM ELECTRICITY TRADING ANALYST BASIC METABOLIC PANEL Today 05/10/2024 3:39 PM ELECTRICITY TRADING ANALYST GLUCOSE METER Timed 05/10/2024 3:33 PM ELECTRICITY TRADING ANALYST GLUCOSE METER Timed 05/10/2024 2:16 PM ELECTRICITY TRADING ANALYST ECHO TTE COMPLETE W CONTRAST LINDA 05/10/2024 1:33 PM ELECTRICITY TRADING ANALYST TROPONIN T (HS) ONE TIME Timed 024 1:21 PM ELECTRICITY TRADING ANALYST GLUCOSE METER Timed 05/10/2024 1:17 PM ELECTRICITY TRADING ANALYST GLUCOSE METER Timed 05/10/2024 1:15 PM ELECTRICITY TRADING ANALYST SCAN CORRESP-IMAGING 05/10/2024 12:45 PM ELECTRICITY TRADING ANALYST GLUCOSE METER Timed 05/10/2024 11:32 AM ELECTRICITY TRADING ANALYST TROPONIN T (HS) ACUTE W/2HR REFLEX STAT 05/10/2024 11:28 AM ELECTRICITY TRADING ANALYST O2 SATURATION,MEASURED Today 11:28 AM ELECTRICITY TRADING ANALYST ARTERIAL BLOOD GAS Today 05/10/2024 11:28 AM ELECTRICITY TRADING ANALYST BASIC METABOLIC PANEL Today 05/10/2024 11:28 AM ELECTRICITY TRADING ANALYST LACTATE ARTERIAL Timed 05/10/2024 11:28 AM ELECTRICITY TRADING ANALYST GLUCOSE METER Timed 05/10/2024 10:19 AM ELECTRICITY TRADING ANALYST EKG 12 LEAD STAT 05/10/2024 9:35 AM ELECTRICITY TRADING ANALYST O2 SATURATION,MEASURED STAT 9:16 AM ELECTRICITY TRADING ANALYST [facility] IONIZED [facility]OSPITAL DRAW ONLY Today 05/10/2024 9:16 AM ELECTRICITY TRADING ANALYST MAGNESIUM Add On 05/10/2024 7:57 AM ELECTRICITY TRADING ANALYST PHOSPHORUS Add On 05/10/2024 7:57 AM ELECTRICITY TRADING ANALYST BASIC METABOLIC PANEL Today 05/10/2024 7:57 AM ELECTRICITY TRADING ANALYST LACTATE ARTERIAL Timed 05/10/2024 7:57 AM ELECTRICITY TRADING ANALYST ARTERIAL BLOOD GAS LINDA 05/10/2024 7:30 AM ELECTRICITY TRADING ANALYST SCAN-CARDIAC STRIP 05/10/2024 7:07 AM ELECTRICITY TRADING ANALYST GLUCOSE METER Timed 05/10/2024 6:53 AM ELECTRICITY TRADING ANALYST HEPATIC FUNCTION PANEL LINDA 4:08 AM ELECTRICITY TRADING ANALYST BASIC METABOLIC PANEL Timed 05/10/2024 4:08 AM ELECTRICITY TRADING ANALYST LACTATE ARTERIAL Timed 05/10/2024 4:08 AM ELECTRICITY TRADING ANALYST CBC W PLT NO DIFF Today 05/10/2024 3:53 AM ELECTRICITY TRADING ANALYST GLUCOSE METER Timed 05/10/2024 3:05 AM ELECTRICITY TRADING ANALYST BLOOD CULTURE STAT 05/10/2024 1:05 AM ELECTRICITY TRADING ANALYST BLOOD CULTURE STAT 05/10/2024 12:56 AM ELECTRICITY TRADING ANALYST BASIC METABOLIC PANEL Timed 05/10/2024 12:54 AM ELECTRICITY TRADING ANALYST LACTATE ARTERIAL Timed 05/10/2024 12:54 AM ELECTRICITY TRADING ANALYST CBC W PLT NO DIFF STAT 05/10/2024 12:54 AM ELECTRICITY TRADING ANALYST PROTIME-INR STAT 05/10/2024 12:54 AM ELECTRICITY TRADING ANALYST CALCIUM IONIZED HOSPITAL DRAW ONLY STAT 05/10/2024 12:54 AM ELECTRICITY TRADING ANALYST O2 SATURATION,MEASURED Today 12:54 AM ELECTRICITY TRADING ANALYST MRSA/SA PCR Today 05/10/2024 12:54 AM ELECTRICITY TRADING ANALYST CENTRAL LINE INSERTION Routine 12:13 AM ELECTRICITY TRADING ANALYST XR CHEST 1 VIEW PICC OR CVAD PLACEMENT PORTABLE STAT 05/09/2024 11:46 PM ELECTRICITY TRADING ANALYST ARTERIAL BLOOD GAS STAT 05/09/2024 11:23 PM ELECTRICITY TRADING ANALYST IR PERCUTANEOUS TUBE PLACEMENT STAT 05/09/2024 10:29 PM ELECTRICITY TRADING ANALYST URINE CULTURE LINDA 05/09/2024 9:49 PM ELECTRICITY TRADING ANALYST URINALYSIS MICROSCOPIC Timed 9:49 PM ELECTRICITY TRADING ANALYST UA W/ SEDIMENT EXAM REFLEXED PER CRITERIA Today 05/09/2024 9:49 PM ELECTRICITY TRADING ANALYST ENDOTRACHEAL TUBE Routine 05/09/2024 9:38 PM ELECTRICITY TRADING ANALYST ENDOTRACHEAL TUBE Routine 05/09/2024 9:[address] ABDOMEN PELVIS WO STAT 05/09/2024 8:52 PM ELECTRICITY TRADING ANALYST RED CELL MORPHOLOGY STAT 05/09/2024 8:26 PM ELECTRICITY TRADING ANALYST PLATELET ESTIMATE STAT 05/09/2024 8:26 PM ELECTRICITY TRADING ANALYST MANUAL DIFFERENTIAL STAT 05/09/2024 8:26 PM ELECTRICITY TRADING ANALYST CBC WITH AUTO DIFFERENTIAL STAT 05/09/2024 8:26 PM ELECTRICITY TRADING ANALYST LACTATE ARTERIAL Today 05/09/2024 8:26 PM ELECTRICITY TRADING ANALYST PROTIME-INR STAT 05/09/2024 8:26 PM ELECTRICITY TRADING ANALYST HEPATIC FUNCTION PANEL STAT 8:26 PM ELECTRICITY TRADING ANALYST MAGNESIUM STAT 05/09/2024 8:26 PM ELECTRICITY TRADING ANALYST CBC WITH AUTO DIFFERENTIAL STAT 05/09/2024 8:26 PM ELECTRICITY TRADING ANALYST BASIC METABOLIC PANEL STAT 05/09/2024 8:26 PM ELECTRICITY TRADING ANALYST GLUCOSE METER Timed 05/09/2024 7:14 PM ELECTRICITY TRADING ANALYST SCAN-RADIOLOGY REPORT 05/09/2024 12:00 AM ELECTRICITY TRADING ANALYST SCAN-CARDIAC STRIP 05/09/2024 12:00 AM ELECTRICITY TRADING ANALYST from Last 3 Months Results * SCAN-CARDIAC STRIP (05/13/2024 7:14 PM ELECTRICITY TRADING ANALYST) Scanner OTHER * (ABNORMAL) GLUCOSE METER (05/13/2024 3:54 PM ELECTRICITY TRADING ANALYST) Only the most recent of40 resultswithin the time period is included. GLUCOSE METER 165(H) 65 - 100 mg/dL 05/13/2024 3:55 PM ELECTRICITY TRADING ANALYST [facility] Blood BLOOD SPECIMEN / Unknown 05/13/2024 3:54 PM ELECTRICITY TRADING ANALYST 05/13/2024 3:55 PM ELECTRICITY TRADING ANALYST [employer] CHEMISTRY Performing Organization Address [facility] Co de Phone Number [facility] [address] [place] [address], * LACTATE VENOUS (05/13/2024 3:49 PM ELECTRICITY TRADING ANALYST) Only the most recent of13 resultswithin the time period is included. LACTATE,VENOUS 1.8 0.5 - 2.0 mmol/L 05/13/2024 4:34 PM ELECTRICITY TRADING ANALYST [facility] Blood BLOOD SPECIMEN / Unknown Non-Lab Venipuncture / Unknown 05/13/2024 3:49 PM ELECTRICITY TRADING ANALYST 05/13/2024 3:57 PM ELECTRICITY TRADING ANALYST Greg Quevedo MD CHEMISTRY Performing Organization Address [facility] Co de Phone Number [facility] [address] [place] [address], * (ABNORMAL) BLOOD GAS,VENOUS (05/13/2024 3:49 PM ELECTRICITY TRADING ANALYST) Only the most recent of6 resultswithin the time period is included. PH, VENOUS 7.31(L) 7.32 - 7.43 05/13/2024 4:06 PM ELECTRICITY TRADING ANALYST [facility] PCO2, VENOUS 52(H) 41 - 51 mmHg 05/13/2024 4:06 PM ELECTRICITY TRADING ANALYST [facility] PO2, VENOUS 41(H) 35 - 40 mmHg 05/13/2024 4:06 PM ELECTRICITY TRADING ANALYST [facility] HCO3,VENOUS 26 22 - 29 mmol/L 05/13/2024 4:06 PM ELECTRICITY TRADING ANALYST [facility] BASE EXCESS, VENOUS, POCT -0.8 -2.0 - 3.0 05/13/2024 4:06 PM ELECTRICITY TRADING ANALYST [facility] O2 SATURATION, VENOUS 64(L) 70 - 75 % 05/13/2024 4:06 PM ELECTRICITY TRADING ANALYST [facility] PATIENT TEMPERATURE 37.0 Degrees C 05/13/2024 4:06 PM ELECTRICITY TRADING ANALYST [facility] Blood VENOUS BLOOD SPECIMEN / Unknown Non-Lab Venipuncture / Unknown 05/13/2024 3:49 PM ELECTRICITY TRADING ANALYST 05/13/2024 3:57 PM ELECTRICITY TRADING ANALYST Greg Quevedo MD CHEMISTRY [facility] [address] [place] [id number], * (ABNORMAL) O2 SATURATION,MEASURED (05/13/2024 3:49 PM ELECTRICITY TRADING ANALYST) Only the most recent of15 resultswithin the time period is included. O2 SATURATION,FELIX SURED 66 % 05/13/2024 4:07 PM ELECTRICITY TRADING ANALYST [facility] HEMOGLOBIN,BLO OD GAS 9.1(L) 12.0 - 16.0 g/dL 05/13/2024 4:07 PM ELECTRICITY TRADING ANALYST [facility] SOURCE, O2M Venous 05/13/2024 4:07 PM ELECTRICITY TRADING ANALYST [facility] Blood BLOOD SPECIMEN / Unknown Non-Lab Venipuncture / Unknown 05/13/2024 3:49 PM ELECTRICITY TRADING ANALYST 05/13/2024 3:57 PM ELECTRICITY TRADING ANALYST Narrative [facility] - 05/13/2024 4:07 PM ELECTRICITY TRADING ANALYST Reference Range for: ??Arterial Source ?(94-98) ?Non-Arterial Source ??(70-75) Greg Quevedo MD CHEMISTRY [facility] [address] [place] [address], * Calcium Ionized Hospital Draw Only CRRT (05/13/2024 3:49 PM ELECTRICITY TRADING ANALYST) Only the most recent of9 resultswithin the time period is included. CALCIUM,IONIZE D 1.15 1.15 - 1.27 mmol/L 05/13/2024 4:05 PM ELECTRICITY TRADING ANALYST [facility] Blood BLOOD SPECIMEN / Unknown Non-Lab Venipuncture / Unknown 05/13/2024 3:49 PM ELECTRICITY TRADING ANALYST 05/13/2024 3:58 PM ELECTRICITY TRADING ANALYST Chuckie Taylor DO CHEM ISTRY Performing Organization Address City/[facility]/ZIP Co de Phone Number [facility] [address] [place] [address], * (ABNORMAL) NON-CARDIAC THROMBOELASTOGRAPHY (05/13/2024 11:07 AM ELECTRICITY TRADING ANALYST) BLANCA REASON General bleeding (non-acute) 05/13/2024 12:40 PM ELECTRICITY TRADING ANALYST [facility] INTEM CT 155 139 - 205 s 05/13/2024 12:40 PM ELECTRICITY TRADING ANALYST [facility] TRAL LAB[facility]ORY INTEM A5 36 36 - 54 mm 05/13/2024 12:40 PM ELECTRICITY TRADING ANALYST [facility] TRAL LAB[facility] INTEM A10 47 46 - 63 mm 05/13/2024 12:40 PM ELECTRICITY TRADING ANALYST [facility] TR[facility] INTEM A20 54 53 - 68 mm 05/13/2024 12:40 PM ELECTRICITY TRADING ANALYST [facility] [employer] [facility] INTEM MCF 58 55 - 70 mm 05/13/2024 12:40 PM ELECTRICITY TRADING ANALYST [facility] TRAL LABORATORY INTEM ML 0 0 - 7 % 05/13/2024 12:40 PM ELECTRICITY TRADING ANALYST [facility] TRAL LABOR[facility]ORY INTEM LI60 100 93 - 100 % 05/13/2024 12:40 PM ELECTRICITY TRADING ANALYST [facility] TRAL LABORATORY EXTEM CT 85(H) 51 - 73 s 05/13/2024 12:40 PM ELECTRICITY TRADING ANALYST [facility] TRAL LAB[facility] EXTEM A5 41 33 - 52 mm 05/13/2024 12:40 PM ELECTRICITY TRADING ANALYST [facility] TR[facility] EXTEM A10 52 45 - 62 mm 05/13/2024 12:40 PM ELECTRICITY TRADING ANALYST [facility] TR[facility] EXTEM A20 59 54 - 69 mm 05/13/2024 12:40 PM ELECTRICITY TRADING ANALYST [facility] TRAL LAB[facility] EXTEM MCF 62 57 - 72 mm 05/13/2024 12:40 PM ELECTRICITY TRADING ANALYST [facility] TRAL LAB[facility] EXTEM ML 0 0 - 6 % 05/13/2024 12:40 PM ELECTRICITY TRADING ANALYST [facility] TRAL LAB[facility] EXTEM LI60 100 94 - 100 % 05/13/2024 12:40 PM ELECTRICITY TRADING ANALYST [facility] TRAL LABORATORY FIBTEM A5 17(H) 5 - 16 mm 05/13/2024 12:40 PM ELECTRICITY TRADING ANALYST [facility] TR[facility] FIBTEM A10 19(H) 6 - 17 mm 05/13/2024 12:40 PM ELECTRICITY TRADING ANALYST [facility] TRAL LAB[facility] FIBTEM A20 21(H) 6 - 18 mm 05/13/2024 12:40 PM ELECTRICITY TRADING ANALYST [facility] TRAL LABORAT[facility] FIBTEM MCF 23(H) 6 - 19 mm 05/13/2024 12:40 PM ELECTRICITY TRADING ANALYST [facility]AL [facility]ORY HEPTEM CT 157 141 - 215 s 05/13/2024 12:40 PM ELECTRICITY TRADING ANALYST [facility] TR[facility] HEPTEM A5 34 33 - 51 mm 05/13/2024 12:40 PM [facility] TRAL LABORATORY HEPTEM A10 45 44 - 61 mm 05/13/2024 12:40 PM ELECTRICITY TRADING ANALYST [facility] TR[facility] HEPTEM A20 53 52 - 67 mm 05/13/2024 12:40 PM ELECTRICITY TRADING ANALYST [facility] TRAL LAB[facility] HEPTEM MCF 58 54 - 69 mm 05/13/2024 12:40 PM ELECTRICITY TRADING ANALYST [facility] TRAL [facility] Blood BLOOD SPECIMEN / Unknown Non-Lab Venipuncture / Unknown 05/13/2024 11:07 AM ELECTRICITY TRADING ANALYST 05/13/2024 11:17 AM ELECTRICITY TRADING ANALYST Greg Quevedo MD H[facility]ATOLOGY [facility] [address] [place] [address], [place] * SCAN-CARDIAC STRIP (05/13/2024 8:35 AM ELECTRICITY TRADING ANALYST) Scanner OTHER * (ABNORMAL) TROPONIN T (HS) ONE TIME (05/13/2024 5:32 AM ELECTRICITY TRADING ANALYST) Only the most recent of4 resultswithin the time period is included. TROPONIN T HS 133(H) 6-10 ng/L ng/L 05/13/2024 2:58 PM ELECTRICITY TRADING ANALYST [facility] Blood BLOOD SPECIMEN / Unknown Non-Lab Venipuncture / Unknown 05/13/2024 5:32 AM ELECTRICITY TRADING ANALYST 05/13/2024 5:39 AM ELECTRICITY TRADING ANALYST Narrative [facility] - 05/13/2024 2:58 PM ELECTRICITY TRADING ANALYST hs-cTnT (Elecsys Troponin T Gen 5) concentration (s) above the sex-specific 99th percentile (16 ng/L or greater for males or 11 ng/L or greater for females) are indicative of myocardial injury. If initial hs-cTnT <=100 ng/L at presentation, a 0h/2h ABSOLUTE (ng/L) delta change (rising or falling) of >=10 ng/L suggests a significant change, whereas a 0h/2h delta change <=3 ng/L suggests no significant change. If initial hs-cTnT >100 ng/L at presentation, a 0h/2h/ RELATIVE (percent, %) delta change of 20% is suggested to distinguish patients with acute vs. chronic myocardial injury. There are multiple etiologies that can cause hs-cTnT increases above the 99th percentile (myocardial injury) other than acute myocardial infarction. Clinical context and careful clinical evaluation are critical for diagnosis and risk-stratification. The diagnosis of acute myocardial infarction requires a rising and/or falling pattern in hs-cTnT concentrations with at least one value above the sex-specific 99th percentile PLUS at least one of the following clinical criteria: ischemic symptoms, new or presumed new significant ST-T wave changes or new LBBB, development of pathological Q waves, imaging evidence of new loss of viable myocardium or new regional wall motion abnormality, or identification of intracoronary atherothrombosis or an acute angiographic culprit on coronary angiography. In appropriate low-risk patients with a non-ischemic electrocardiogram without active chest pain with a symptom onset >3-hours without recurrence, a single initial hs-cTnT<6 ng/L identifies patient with a very low risk in emergency department patient population. Greg Quevedo MD CHEMISTRY Performing Organization Address [facility] Co de Phone Number [facility] [address] [place] [address], * (ABNORMAL) PLATELET ESTIMATE (05/13/2024 5:32 AM ELECTRICITY TRADING ANALYST) Only the most recent of3 resultswithin the time period is included. Pathologist [facility] PLATELET ESTIMATE Decreased (A) Adequate, No estimate 05/13/2024 6:10 AM ELECTRICITY TRADING ANALYST [facility] [employer] [facility] Blood BLOOD SPECIMEN / Unknown Non-Lab Venipuncture / Unknown 05/13/2024 5:32 AM ELECTRICITY TRADING ANALYST 05/13/2024 5:39 AM ELECTRICITY TRADING ANALYST Chuckie Taylor DO DANELLE TOLOGY Performing Organization Address [facility] Co de Phone Number [facility] [address] [place] [address], * (ABNORMAL) CBC with Platelets No Differential CRRT (05/13/2024 5:32 AM ELECTRICITY TRADING ANALYST) Only the most recent of5 resultswithin the time period is included. WHITE BLOOD COUNT 24.9(H) 4.5 - 11.0 thou/cu mm 05/13/2024 6:10 AM ELECTRICITY TRADING ANALYST [facility] RED BLOOD COUNT 3.05(L) 4.00 - 5.20 mil/cu mm 05/13/2024 6:10 AM ELECTRICITY TRADING ANALYST [facility] HEMOGLOBIN 8.9(L) 12.0 - 16.0 g/dL 05/13/2024 6:10 AM [facility] TRAL LABORATORY HEMATOCRIT 28.5(L) 33.0 - 51.0 % 05/13/2024 6:10 AM [facility] TRAL LABORATORY MCV 93 80 - 100 fL 05/13/2024 6:10 AM [facility] TRAL LABORATORY MCH 29.2 26.0 - 34.0 pg 05/13/2024 6:10 AM [facility] TRAL LABORATORY MCHC 31.2(L) 32.0 - 36.0 g/dL 05/13/2024 6:10 AM [facility] TRAL LABORATORY RDW 16.3(H) 11.5 - 15.5 % 05/13/2024 6:10 AM [facility] TRAL LABORATORY PLATELET COUNT 94(L) 140 - 440 thou/cu mm 05/13/2024 6:10 AM [facility] TRAL LABORATORY MPV 10.1 6.5 - 11.0 fL 05/13/2024 6:10 AM [facility] TRAL LABORATORY NRBC 0.2 % 05/13/2024 6:10 AM [facility] TRAL LABORATORY ABS NRBC 0.0 thou /cu mm 05/13/2024 6:10 AM [facility] TRAL LABORATORY Blood BLOOD SPECIMEN / Unknown Non-Lab Venipuncture / Unknown 05/13/2024 5:32 AM ELECTRICITY TRADING ANALYST 05/13/2024 5:39 AM [facility] Chuckie Taylor DANELLE TOLOG [facility] [address] [place] [address], * (ABNORMAL) BUN CRRT (05/13/2024 5:32 AM ELECTRICITY TRADING ANALYST) BUN 43(H) 8 - 23 mg/dL 05/13/2024 7:53 AM [facility] Blood BLOOD SPECIMEN / Unknown Non-Lab Venipuncture / Unknown 05/13/2024 5:32 AM ELECTRICITY TRADING ANALYST 05/13/2024 5:39 AM ELECTRICITY TRADING ANALYST Chuckie Taylor DO CHEM ISTRY Performing Organization Address City/[facility] Co de Phone Number [facility] [address] [place] [address], * POTASSIUM (05/13/2024 5:32 AM ELECTRICITY TRADING ANALYST) Only the most recent of2 resultswithin the time period is included. POTASSIUM 4.7 3.5 - 5.1 mmol/L 05/13/2024 7:46 AM ELECTRICITY TRADING ANALYST [facility] Blood BLOOD SPECIMEN / Unknown Non-Lab Venipuncture / Unknown 05/13/2024 5:32 AM ELECTRICITY TRADING ANALYST 05/13/2024 5:39 AM ELECTRICITY TRADING ANALYST Osmel Barriga MD CHEMISTRY Performing Organization Address [facility] Phone Number [facility] [address] [place] [address], * (ABNORMAL) Creatinine CRRT (05/13/2024 5:32 AM ELECTRICITY TRADING ANALYST) eGFR 17(L) >90 mL/min/1.7 3m2 05/13/2024 7:47 AM ELECTRICITY TRADING ANALYST [facility] Comment:As of 2021, eG FR is calculated by the CKD-EPI creatinine equation without race adjustment. ??eGFR can be influenced by muscle mass, exercise, and diet. ??The reported eGFR is an estimation only and is only applicable if the renal function is stable. CREATININE 2.71(H) 0.50 - 0.90 mg/dL 05/13/2024 7:47 AM ELECTRICITY TRADING ANALYST [facility] Blood BLOOD SPECIMEN / Unknown Non-Lab Venipuncture / Unknown 05/13/2024 5:32 AM ELECTRICITY TRADING ANALYST 05/13/2024 5:39 AM ELECTRICITY TRADING ANALYST Chuckie Taylor DO CHEM ISTRY Performing Organization Address City/[facility] Co de Phone Number [facility] [address] [place] [address], * (ABNORMAL) MAGNESIUM (05/13/2024 5:32 AM ELECTRICITY TRADING ANALYST) Only the most recent of6 resultswithin the time period is included. MAGNESIUM 2.5(H) 1.6 - 2.4 mg/dL 05/13/2024 7:49 AM ELECTRICITY TRADING ANALYST [facility] Blood BLOOD SPECIMEN / Unknown Non-Lab Venipuncture / Unknown 05/13/2024 5:32 AM ELECTRICITY TRADING ANALYST 05/13/2024 5:39 AM ELECTRICITY TRADING ANALYST Osmel Barriga MD CHEMISTRY [facility] [address] [place] [address], * (ABNORMAL) Hepatic function panel AM (05/13/2024 5:32 AM ELECTRICITY TRADING ANALYST) Only the most recent of5 resultswithin the time period is included. ALBUMIN 2.6(L) 4.0 - 4.9 g/dL 05/13/2024 7:58 AM [facility] PROTEIN,TOTAL 5.0(L) 6.0 - 8.0 g/dL 05/13/2024 7:58 AM [facility] BILIRUBIN,TOTAL 1.4(H) 0.0 - 1.2 mg/dL 05/13/2024 7:58 AM [facility] TRAL LABORATORY BILIRUBIN,DIRECT 1.0(H) 0.0 - 0.2 mg/dL 05/13/2024 7:58 AM [facility] BILIRUBIN,INDIRE CT 0.4 0.2 - 0.8 mg/dL 05/13/2024 7:58 AM [facility] ALK PHOSPHATASE 580(H) 35 - 104 IU/L 05/13/2024 7:58 AM [facility] ALT (SGPT) 1,526(H) 10 - 35 IU/L 05/13/2024 7:58 AM [facility] TRAL LABORATORY AST (SGOT) 1,514(H) 10 - 35 IU/L 05/13/2024 7:58 AM ELECTRICITY TRADING ANALYST [facility] TRAL LABORATORY Blood BLOOD SPECIMEN / Unknown Non-Lab Venipuncture / Unknown 05/13/2024 5:32 AM ELECTRICITY TRADING ANALYST 05/13/2024 5:39 AM ELECTRICITY TRADING ANALYST Bambi Parsons MD CHEMISTRY [facility] [address] [place] [address], * TRANSFUSE PLT (NURSE COMMUNICATION ORDER) (05/13/2024 5:16 AM ELECTRICITY TRADING ANALYST) Blood BLOOD SPECIMEN / Unknown Eldon Dykes [facility] * TYPE & SCREEN (05/13/2024 3:00 AM ELECTRICITY TRADING ANALYST) ABORH O Rh Positive 05/13/2024 3:49 AM ELECTRICITY TRADING ANALYST [facility] LAB BLOOD BANK ANTIBODY SCREEN Negative Negative 05/13/2024 3:49 AM ELECTRICITY TRADING ANALYST [facility] LAB BLOOD BANK SPECIMEN EXPIRATION DATE/TIME 05/16/24 23:59 05/13/2024 3:49 AM ELECTRICITY TRADING ANALYST [facility] LAB BLOOD BANK Blood BLOOD SPECIMEN / Unknown Non-Lab Venipuncture / Unknown 05/13/2024 3:00 AM ELECTRICITY TRADING ANALYST 05/13/2024 3:06 AM ELECTRICITY TRADING ANALYST Eldon SERRANO BLOOD BANK [facility] LAB BLOOD BANK [address] [place] [address], * PLATELET ORDER, 1 unit (05/13/2024 2:44 AM ELECTRICITY TRADING ANALYST) QUANTITY 1 05/13/2024 2:4 4 AM ELECTRICITY TRADING ANALYST [facility] Blood BLOOD SPECIMEN / Unknown 05/13/2024 2:42 AM ELECTRICITY TRADING ANALYST Eldon Dykes [facility] Performing Organization Address City/[facility]/ZIP Co de Phone Number [facility] LAB-CENTRAL LAB BLOOD BANK [address] [place] [address], [place] [phone] * PLATELET EA UNIT (05/13/2024 2:42 AM ELECTRICITY TRADING ANALYST) PRODUCT BLOOD TYPE O Rh Positive [facility] [employer] LAB-CENTRAL LAB BLOOD BANK PRODUCT ID NUMBER [id number] [facility] [employer] LAB-CENTRAL LAB BLOOD BANK PRODUCT STATUS Issued [facility] [employer] LAB-CENTRAL LAB BLOOD BANK PRODUCT DESCRIPTION SDP PAS-C PS LR Pt1 [facility] [employer] LAB-CENTRAL LAB BLOOD BANK PRODUCT CODE [id number] [facility] [employer] LAB-CENTRAL LAB BLOOD BANK ISSUE DATE/TIME 05/13/24 04:35 [facility] BLOOD BANK Eldon Dykes [facility] Performing Organization Address [facility] Co de Phone Number [facility] [employer]-CENTRAL LAB BLOOD BANK [address] [place] [address], [place] [phone] * SCAN-CARDIAC STRIP (05/12/2024 10:00 PM ELECTRICITY TRADING ANALYST) Scanner OTHER * (ABNORMAL) PHOSPHORUS (05/12/2024 8:32 PM ELECTRICITY TRADING ANALYST) Only the most recent of4 resultswithin the time period is included. PHOSPHORUS 6.6(H) 2.5 - 4.5 mg/dL 05/12/2024 9:15 PM ELECTRICITY TRADING ANALYST [facility] Blood BLOOD SPECIMEN / Unknown Non-Lab Venipuncture / Unknown 05/12/2024 8:32 PM ELECTRICITY TRADING ANALYST 05/12/2024 8:39 PM ELECTRICITY TRADING ANALYST John Peterson MD CHEMISTRY Performing Organization Address City/[facility]/ZIP Co de Phone Number [facility] [address] [place] [address], [place] * ELECTROLYTE PANEL (05/12/2024 8:32 PM ELECTRICITY TRADING ANALYST) Pathologist [facility] SODIUM 138 136 - 145 mmol/L 05/12/2024 9:15 PM ELECTRICITY TRADING ANALYST [facility] POTASSIUM 4.9 3.5 - 5.1 mmol/L 05/12/2024 9:15 PM ELECTRICITY TRADING ANALYST [facility] LABORATORY CHLORIDE 100 98 - 107 mmol/L 05/12/2024 9:15 PM ELECTRICITY TRADING ANALYST [facility] CO2,TOTAL 24 22 - 29 mmol/L 05/12/2024 9:15 PM ELECTRICITY TRADING ANALYST [facility] ANION GAP 14 5 - 18 05/12/2024 9:15 PM ELECTRICITY TRADING ANALYST [facility] Blood BLOOD SPECIMEN / Unknown Non-Lab Venipuncture / Unknown 05/12/2024 8:32 PM ELECTRICITY TRADING ANALYST 05/12/2024 8:39 PM ELECTRICITY TRADING ANALYST John Peterson MD CHEMISTRY Performing Organization Address City/[facility]/ZIP Co de Phone Number [facility] [address] [place] [address], * (ABNORMAL) FIBRINOGEN,QUANTITATIVE (05/12/2024 5:27 PM ELECTRICITY TRADING ANALYST) FIBRINOGEN,PARESH NTITATIVE 514(H) 193 - 401 mg/dL 05/12/2024 5:51 PM ELECTRICITY TRADING ANALYST [facility] RAL LABORATORY Blood BLOOD SPECIMEN / Unknown Non-Lab Venipuncture / Unknown 05/12/2024 5:27 PM ELECTRICITY TRADING ANALYST 05/12/2024 5:33 PM ELECTRICITY TRADING ANALYST John Peterson MD HEMATOLOGY [facility] [address] [place] [address], * (ABNORMAL) D-DIMER,QUANTITATIVE (05/12/2024 5:27 PM ELECTRICITY TRADING ANALYST) D-DIMER,QUANTI TATIVE 77.15 See comment FEU mcg/mL 05/12/2024 5:54 PM ELECTRICITY TRADING ANALYST [facility] TRAL LABORATORY D-DIMER INTERP Abnormal( A) 05/12/2024 5:54 PM ELECTRICITY TRADING ANALYST [facility] TRAL LABORATORY Blood BLOOD SPECIMEN / Unknown Non-Lab Venipuncture / Unknown 05/12/2024 5:27 PM ELECTRICITY TRADING ANALYST 05/12/2024 5:33 PM ELECTRICITY TRADING ANALYST Narrative [facility] - 05/12/2024 5:54 PM ELECTRICITY TRADING ANALYST The cut off value for exclusion of Deep Vein Thrombosis and / or Pulmonary Embolism is 0.50 FEU mcg/mL For patients greater than 50 years of age the upper limit is age dependent and was calculated with the formula: ?? (PATIENT AGE x 0.01) FEU mcg/mL = Upper limit of normal range John Peterson MD HEMATOLOGY Performing Organization Address City/[facility] Co de Phone Number [facility] [address] [place] [address], * HAPTOGLOBIN (05/12/2024 5:27 PM ELECTRICITY TRADING ANALYST) Haptoglobin 141 30 - 200 mg/dL 05/12/2024 6:04 PM ELECTRICITY TRADING ANALYST [facility] Blood BLOOD SPECIMEN / Unknown Non-Lab Venipuncture / Unknown 05/12/2024 5:27 PM ELECTRICITY TRADING ANALYST 05/12/2024 5:33 PM ELECTRICITY TRADING ANALYST John Peterson MD CHEMISTRY Performing Organization Address [facility] Co de Phone Number [facility] [address] [place] [address], * Central Venous Line (05/12/2024 4:25 PM ELECTRICITY TRADING ANALYST) Narrative John Peterson MD - 05/12/2024 4:25 PM ELECTRICITY TRADING ANALYST John Petesron MD ? 05/12/2024 ??5:23 PM CENTRAL VENOUS LINE INSERTION - Dialysis catheter Indication: Dialysis Anesthesia: 1% lidocaine Alston protocol was followed. TIME OUT conducted just prior to starting procedure confirmed patient identity, site/side, procedure, patient position, and availability of correct equipment and implants. ??Yes. The procedure, benefits, risks, and alternatives were explained to the patient's surrogate decision maker. She voiced understanding of the information and agreed to proceed with the procedure. Central line bundle elements were completed including preparatory hand cleansing, donning full barrier precautions, use of a full body drape and chlorhexidine gluconate skin prep. ??The right internal jugular vein was selected as lowest risk for mechanical complication. A vascular ultrasound device was used to locate the vein. A finder needle was used to enter the vein - too small of a needle was utilized initially, so after failed attempt the needle was withdrawn and exchanged. A proper sized needle was used to enter the vein, through which a guidewire was inserted. The finder needle was then removed and the tract was dilated with a dilator. A 15 cm double lumen central venous catheter was inserted over the guidewire without difficulty. The guidewire was removed and the catheter was secured to the underlying skin. The patient tolerated the procedure well and there were no immediate complications. A post-procedure chest radiograph showed no pneumothorax and appropriate line placement. Dr. Peterson was present during entirety of procedure and Dr. Bambi Parsons Internal Medicine Resident Physician - PGY2 Please contact directly on weekdays 8am-5pm Page resident cross-cover after 5pm and on weekends I was present for the entirety of the procedure and performed the damian portions. John Peterson MD, MPH Pulmonary and Critical Care Physician [facility] ?? Bambi Parsons MD PROCEDURE ORD * ECG STAT (05/12/2024 3:52 PM ELECTRICITY TRADING ANALYST) Only the most recent of3 resultswithin the time period is included. Interpretation Atrial fibrillation with rapid ventricular response Right bundle branch block Abnormal ECG When compared with ECG of 11-May-2024 16:32, (Unconfirmed) Atrial fibrillation has replaced Sinus rhythm Vent. rate has increased by ??37 bpm BEYOND NOW Ventricular Rate 106 BPM BEYOND NOW Atrial Rate BPM BEYOND NOW P-R Interval ms BEYOND NOW QRS Duration 150 ms BEYOND NOW QT 372 ms BEYOND NOW QTc 494 ms BEYOND NOW P [place] degrees BEYOND NOW R [place] -22 degrees BEYOND NOW T [place] 3 degrees BEYOND NOW 05/12/2024 3:52 PM ELECTRICITY TRADING ANALYST 05/13/2024 2:34 PM ELECTRICITY TRADING ANALYST Bambi Parsons MD EKG ORD BEYOND NOW [place], [place] * XR CHEST 1 VIEW PORTABLE (05/12/2024 3:38 PM ELECTRICITY TRADING ANALYST) Only the most recent of2 resultswithin the time period is included. Anatomical Region Laterality Modality HEART, THORAX, CHEST Digital Rad iography Impressions 05/12/2024 4:01 PM ELECTRICITY TRADING ANALYST Placement of additional right multilumen central venous catheter with satisfactory positioning of the tip at the SVC. The remaining tube and catheter placements are stable no change. No new focal pulmonary opacities. ??Left lower lobe atelectasis. No pneumothorax. Stable heart size. ??Sternotomy. Narrative 05/12/2024 4:01 PM ELECTRICITY TRADING ANALYST INDICATION Line placement TECHNIQUE Portable chest. Comparison 05/12/2024. ?? John Peterson MD GENERAL IMAGING * SCAN CORRESP-LABORATORY RESULTS (05/12/2024 12:08 PM ELECTRICITY TRADING ANALYST) Only the most recent of2 resultswithin the time period is included. Narrative 05/12/2024 12:08 PM ELECTRICITY TRADING ANALYST Ordered by an unspecified provider. Other Clinical Staff OTHER * SCAN-CARDIAC STRIP (05/12/2024 7:32 AM ELECTRICITY TRADING ANALYST) Scanner OTHER * (ABNORMAL) PROTIME-INR (05/12/2024 4:49 AM ELECTRICITY TRADING ANALYST) Only the most recent of4 resultswithin the time period is included. INR 1.3(H) <1.3 05/12/2024 5:40 AM ELECTRICITY TRADING ANALYST [facility] PROTIME 15.5(H) 10.6 - 12.4 sec 05/12/2024 5:40 AM ELECTRICITY TRADING ANALYST [facility] Blood BLOOD SPECIMEN / Unknown Non-Lab Venipuncture / Unknown 05/12/2024 4:49 AM ELECTRICITY TRADING ANALYST 05/12/2024 5:22 AM ELECTRICITY TRADING ANALYST Narrative [facility] - 05/12/2024 5:40 AM ELECTRICITY TRADING ANALYST ?Therapeutic Range 2.0-3.0 for most anticoagulated patients 2.5-3.5 or 4.0 for high risk patients The INR is only used for patients on stable oral anticoagulant therapy. It makes no significant contribution to the diagnosis or treatment of patients whose Protime is prolonged for other reasons. INR results are increased when heparin levels exceed 1.0 U/mL, which corresponds to an aPTT >125 seconds if the patient is on UFH. Greg Quevedo MD HEMATOLOGY [facility] [address] [place] [address], * (ABNORMAL) BASIC METABOLIC PANEL (05/12/2024 4:49 AM ELECTRICITY TRADING ANALYST) Only the most recent of10 resultswithin the time period is included. SODIUM 139 136 - 145 mmol/L 05/12/2024 5:59 AM [facility] POTASSIUM 5.1 3.5 - 5.1 mmol/L 05/12/2024 5:59 AM [facility] CHLORIDE 100 98 - 107 mmol/L 05/12/2024 5:59 AM [facility] CO2,TOTAL 24 22 - 29 mmol/L 05/12/2024 5:59 AM [facility] ANION GAP 15 5 - 18 05/12/2024 5:59 AM [facility] GLUCOSE 179(H) 70 - 99 mg/dL 05/12/2024 5:59 AM [facility] CALCIUM 7.8(L) 8.8 - 10.4 mg/dL 05/12/2024 5:59 AM [facility] Comment: Reference ranges for this test were updated on 05/02/2024 to reflect our healthy population more accurately. Reference range changes are not retroactively applied to results, but previous results using the same methodology can be interpreted in the context of the new reference range. BUN 66(H) 8 - 23 mg/dL 05/12/2024 5:59 AM [facility] CREATININE 4.64(H) 0.50 - 0.90 mg/dL 05/12/2024 5:59 AM [facility] BUN/CREAT RATIO 14 10 - 20 5:59 AM ELECTRICITY TRADING ANALYST [facility] eGFR 9(L) >90 mL/min/1. 73m2 05/12/2024 5:59 AM ELECTRICITY TRADING ANALYST [facility] Comment:As of 2021, eG FR is calculated by the CKD-EPI creatinine equation without race adjustment. ??eGFR can be influenced by muscle mass, exercise, and diet. ??The reported eGFR is an estimation only and is only applicable if the renal function is stable. Blood BLOOD SPECIMEN / Unknown Non-Lab Venipuncture / Unknown 05/12/2024 4:49 AM ELECTRICITY TRADING ANALYST 05/12/2024 5:22 AM ELECTRICITY TRADING ANALYST Greg Quevedo MD CHEMISTRY [facility] [address] [place] [address], * SCAN-CARDIAC STRIP (05/12/2024 12:07 AM ELECTRICITY TRADING ANALYST) Scanner OTHER * SCAN-CARDIAC STRIP (05/11/2024 2:59 PM ELECTRICITY TRADING ANALYST) Scanner OTHER * SCAN CORRESP-IMAGING (05/11/2024 12:01 PM ELECTRICITY TRADING ANALYST) Only the most recent of2 resultswithin the time period is included. Anatomical Region Laterality Modality Other Narrative 05/11/2024 12:01 PM ELECTRICITY TRADING ANALYST Ordered by an unspecified provider. Other Clinical Staff OTHER * (ABNORMAL) ARTERIAL BLOOD GAS (05/11/2024 8:53 AM ELECTRICITY TRADING ANALYST) Only the most recent of8 resultswithin the time period is included. PH, ARTERIAL 7.41 7.35 - 7.45 05/11/2024 9:16 AM ELECTRICITY TRADING ANALYST [facility] PCO2, ARTERIAL 34 32 - 45 mmHg 05/11/2024 9:16 AM ELECTRICITY TRADING ANALYST [facility] PO2, ARTERIAL 80(L) 83 - 108 mmHg 05/11/2024 9:16 AM ELECTRICITY TRADING ANALYST [facility] HCO3, ARTERIAL 22 21 - 28 mmol/L 05/11/2024 9:16 AM ELECTRICITY TRADING ANALYST [facility] BASE EXCESS, ARTERIAL -2.4(L) -2.0 - 3.0 05/11/2024 9:16 AM ELECTRICITY TRADING ANALYST [facility] O2 SATURATION, ARTERIAL 98 94 - 98 % 05/11/2024 9:16 AM ELECTRICITY TRADING ANALYST [facility] INSPIRED O2 05/11/2024 9:16 AM ELECTRICITY TRADING ANALYST [facility] Comment:Unit of Measure: Lit ers (L) if <=20; Percent (%) if >20 PATIENT TEMPERATURE 37.0 Degrees C 05/11/2024 9:16 AM ELECTRICITY TRADING ANALYST [facility] Blood ARTERIAL BLOOD SPECIMEN / Unknown Non-Lab Venipuncture / Unknown 05/11/2024 8:53 AM ELECTRICITY TRADING ANALYST 05/11/2024 9:10 AM ELECTRICITY TRADING ANALYST Greg Quevedo MD CHEMISTRY Performing Organization Address City/State/[facility] Co de Phone Number [facility] [address] [place] [address], * SCAN-CARDIAC STRIP (05/11/2024 7:38 AM ELECTRICITY TRADING ANALYST) Scanner OTHER * VANCOMYCIN (05/11/2024 4:07 AM ELECTRICITY TRADING ANALYST) VANCOMYCIN 10.6 ug/mL 05/11/2024 4:52 AM ELECTRICITY TRADING ANALYST [facility] Comment:No Reference Range D efined. DATE OF LAST DOSE,RANDOM 05/10/2024 05/11/2024 4:52 AM ELECTRICITY TRADING ANALYST [facility] TIME OF LAST DOSE,RANDOM 12:12 AM 05/11/2024 4:52 AM ELECTRICITY TRADING ANALYST [facility] Blood BLOOD SPECIMEN / Unknown Non-Lab Venipuncture / Unknown 05/11/2024 4:07 AM ELECTRICITY TRADING ANALYST 05/11/2024 4:19 AM ELECTRICITY TRADING ANALYST Greg Quevedo MD CHEMISTRY Performing Organization Address City/State/[facility] Co de Phone Number [facility] [address] [address], * SCAN-CARDIAC STRIP (05/10/2024 10:54 PM ELECTRICITY TRADING ANALYST) Scanner OTHER * (ABNORMAL) LACTATE ARTERIAL (05/10/2024 8:15 PM ELECTRICITY TRADING ANALYST) Only the most recent of7 resultswithin the time period is included. LACTATE,ARTERI AL 8.1(H) 0.5 - 1.6 mmol/L 05/10/2024 8:55 PM ELECTRICITY TRADING ANALYST [facility] Blood BLOOD SPECIMEN / Unknown Non-Lab Venipuncture / Unknown 05/10/2024 8:15 PM ELECTRICITY TRADING ANALYST 05/10/2024 8:24 PM ELECTRICITY TRADING ANALYST Greg Quevedo MD CHEMISTRY Performing Organization Address [facility] de Phone Number [facility] [address] [address], * ECHO TTE COMPLETE W CONTRAST (05/10/2024 1:33 PM ELECTRICITY TRADING ANALYST) AORTIC VALVE MEAN PG 6 mmHg LVEDD 4.0 cm EJECTION FRACTION 55 - 60% PEAK TR VELOCITY 2.5 m/s Anatomical Region Laterality Modality Ultrasound 05/10/2024 12:4 3 PM ELECTRICITY TRADING ANALYST Narrative 05/10/2024 2:21 PM ELECTRICITY TRADING ANALYST ECHOCARDIOGRAM PILAR MESSINA ? Accession#: ?? [id number] : ?1945 78 years Study Date: ?? 05/10/2024 12:43:27 PM Gender: F ?BP: ? 69/53 mmHg Height: 149.00 cm ?BSA: ?1.55 m? ? ? Weight: 61.00 kg ? Tech: ? JMO ? Referring MD: GREG QUEVEDO Site: ? [facility] Reading Location: [facility] IP Patient Location: Inpatient. Procedure: 2D w/ Contrast, Color Doppler and Spectral Doppler. Indication for study: Heart Failure Cardiac Rhythm: Regular.Study quality: Good. Final Impressions: 1. Normal LV size, normal wall thickness, normal global systolic function with an estimated EF of 55 - 60%. 2. Grade 2 pattern of LV diastolic filling. 3. Right ventricular cavity size is moderately enlarged, global systolic RV function is mildly reduced. 4. The aortic valve is trileaflet and sclerotic, no stenosis and trivial regurgitation. 5. The mitral valve is sclerotic, mild to moderate mitral regurgitation. 6. Moderate pulumonary regurgitation. 7. Severe tricuspid regurgitation. Tricuspid valve is non coapting. 8. 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 9. Echo contrast was administered to enhance visualization of all left ventricular segments. 10. Compared to prior study, RV appears larger on current study, otherwise no significant change. Chamber Sizes and Function Normal left ventricular size, normal wall thickness, normal global systolic function with an estimated EF of 55 - 60%. No resting regional wall motion abnormality visualized. Left atrial size is not well visualized. Right ventricular cavity size is moderately enlarged, global systolic RV function is mildly reduced. The right atrium is moderately enlarged. Right atrial volume index is 26 ml/m? ? ?. The pulmonary artery is of normal size and origin. The sinus of Valsalva is normal sized. The ascending aorta is dilated. Valves, RV Pressures and Diastolic Function The aortic valve is trileaflet and sclerotic, no stenosis and trivial regurgitation. The mitral valve is sclerotic, mild to moderate mitral regurgitation. Spectral Doppler shows Grade 2 pattern of LV diastolic filling. The tricuspid valve is fails to coapt. Tricuspid regurgitation is severe. The tricuspid regurgitant velocity is 2.4 m/s, the estimated right ventricular systolic pressure is 24 mmHg plus right atrial pressure. The pulmonic valve is normal. Moderate pulmonary regurgitation. Masses, Effusion, Shunts There is no pericardial effusion. Patient vented, IVC not interpretable. No left to right shunting was detected by limited color flow Doppler interrogation of the interatrial septum. MEASUREMENTS AND CALCULATIONS 2-D Measurements and LV Function: LVID (d) 4.0 cm LVOT diameter 1.8 cm IVS (d) ??1.0 cm HR ?67 bpm Ao Sinus 3.2 cm RA Vol index ??26 ml/m2 Asc Ao ?? 3.9 cm Diastology: Mitral ?Tissue Doppler E Peak 0.7 m/s ??e', Septum ? 0.04 m/s A Peak 0.4 m/s E/A ?1.7 DT ? 178 msec Aortic Valve: Vmax ? 1.6 m/s ??CRUZ (V) ?? 1.43 cm? ? ? VTI ?0.29 m ?? CRUZ (I) ?? 1.40 cm? ? ? LVOT V max 0.9 m/s ??Max PG ?10 mmHg LVOT VTI ?? 0.16 m ?? Mean PG ?? 6 mmHg SV ? 41 ml ?Dim Index 0.55 SV index ?? 26 ml/m? ? ? CO ?2.7 l/min ?CI ?1.8 l/min/m? ? ? Mitral Valve: MVA ?4.3 cm? ? ? MV P 1/2 52 msec Tricuspid Valve and estimated PA pressures: TR Vmax 2.4 m/s TAPSE 1.0 cm TR maxG 24 mmHg Contrast documentation: 2 ml diluted Definity, lot #[id number], [facility]# [id number] was administered peripherally to enhance visualization of all left ventricular segments. . This study was interpreted by an [facility] accredited facility. ??Final ?? Procedure Note Jaquan Maddox MD - 05/10/2024 ECHOCARDIOGRAM PILAR MESSINA : 1945 78 years Study Date: 05/10/2024 12:43:27 PM Gender: F BP: 69/53 mmHg Height: 149.00 cm BSA: 1.55 m? ? ? Weight: 61.00 kg Tech: PAT Referring MD: GREG QUEVEDO Site: [facility] Reading Location: [facility]W Patient Location: Inpatient. Procedure: 2D w/ Contrast, Color Doppler and Spectral Doppler. Indication for study: Heart Failure Cardiac Rhythm: Regular.Study quality: Good. Final Impressions: 1. Normal LV size, normal wall thickness, normal global systolic functionwith an estimated EF of 55 - 60%. 2. Grade 2 pattern of LV diastolic filling. 3. Right ventricular cavity size is moderately enlarged, global systolicRV function is mildly reduced. 4. The aortic valve is trileaflet and sclerotic, no stenosis and trivialregurgitation. 5. The mitral valve is sclerotic, mild to moderate mitralregurgitation. 6. Moderate pulumonary regurgitation. 7. Severe tricuspid regurgitation. Tricuspid valve is non coapting. 8. 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 9. Echo contrast was administered to enhance visualization of all leftventricular segments. 10. Compared to prior study, RV appears larger on current study, otherwiseno significant change. Chamber Sizes and Function Normal left ventricular size, normal wall thickness, normal globalsystolic function with an estimated EF of 55 - 60%. No resting regionalwall motion abnormality visualized. Left atrial size is not wellvisualized. Right ventricular cavity size is moderately enlarged, globalsystolic RV function is mildly reduced. The right atrium is moderatelyenlarged. Right atrial volume index is 26 ml/m? ? ?. The pulmonary artery isof normal size and origin. The sinus of Valsalva is normal sized. Theascending aorta is dilated. Valves, RV Pressures and Diastolic Function The aortic valve is trileaflet and sclerotic, no stenosis and trivialregurgitation. The mitral valve is sclerotic, mild to moderate mitralregurgitation. Spectral Doppler shows Grade 2 pattern of LV diastolicfilling. The tricuspid valve is fails to coapt. Tricuspid regurgitation issevere. The tricuspid regurgitant velocity is 2.4 m/s, the estimated rightventricular systolic pressure is 24 mmHg plus right atrial pressure. Thepulmonic valve is normal. Moderate pulmonary regurgitation. Masses, Effusion, Shunts There is no pericardial effusion. Patient vented, IVC not interpretable.No left to right shunting was detected by limited color flow Dopplerinterrogation of the interatrial septum. MEASUREMENTS AND CALCULATIONS 2-D Measurements and LV Function: LVID (d) 4.0 cm LVOT diameter 1.8 cm IVS (d) 1.0 cm HR 67 bpm Ao Sinus 3.2 cm RA Vol index 26 ml/m2 Asc Ao 3.9 cm Diastology: Mitral Tissue Doppler E Peak 0.7 m/s e', Septum 0.04 m/s A Peak 0.4 m/s E/A 1.7 DT 178 msec Aortic Valve: Vmax 1.6 m/s CRUZ (V) 1.43 cm? ? ? VTI 0.29 m CRUZ (I) 1.40 cm? ? ? LVOT V max 0.9 m/s Max PG 10 mmHg LVOT VTI 0.16 m Mean PG 6 mmHg SV 41 ml Dim Index 0.55 SV index 26 ml/m? ? ? CO 2.7 l/min CI 1.8 l/min/m? ? ? Mitral Valve: MVA 4.3 cm? ? ? MV P 1/2 52 msec Tricuspid Valve and estimated PA pressures: TR Vmax 2.4 m/s TAPSE 1.0 cm TR maxG 24 mmHg Contrast documentation: 2 ml diluted Definity, lot #[id number], [facility]#[id number] was administered peripherally to enhance visualization of allleft ventricular segments. . This study was interpreted by an [facility] accredited facility. Final Greg Quevedo MD ECHO ORD * (ABNORMAL) TROPONIN T (HS) ACUTE W/2HR REFLEX (05/10/2024 11:28 AM ELECTRICITY TRADING ANALYST) Pathologist [facility] TROPONIN T HS 109(H) 6-10 ng/L ng/L 05/10/2024 12:13 PM ELECTRICITY TRADING ANALYST [facility] Blood BLOOD SPECIMEN / Unknown Non-Lab Venipuncture / Unknown 05/10/2024 11:28 AM ELECTRICITY TRADING ANALYST 05/10/2024 11:46 AM ELECTRICITY TRADING ANALYST Narrative [facility] - 05/10/2024 12:13 PM ELECTRICITY TRADING ANALYST hs-cTnT (Elecsys Troponin T Gen 5) concentration (s) above the sex-specific 99th percentile (16 ng/L or greater for males or 11 ng/L or greater for females) are indicative of myocardial injury. If initial hs-cTnT <=100 ng/L at presentation, a 0h/2h ABSOLUTE (ng/L) delta change (rising or falling) of >=10 ng/L suggests a significant change, whereas a 0h/2h delta change <=3 ng/L suggests no significant change. If initial hs-cTnT >100 ng/L at presentation, a 0h/2h/ RELATIVE (percent, %) delta change of 20% is suggested to distinguish patients with acute vs. chronic myocardial injury. There are multiple etiologies that can cause hs-cTnT increases above the 99th percentile (myocardial injury) other than acute myocardial infarction. Clinical context and careful clinical evaluation are critical for diagnosis and risk-stratification. The diagnosis of acute myocardial infarction requires a rising and/or falling pattern in hs-cTnT concentrations with at least one value above the sex-specific 99th percentile PLUS at least one of the following clinical criteria: ischemic symptoms, new or presumed new significant ST-T wave changes or new LBBB, development of pathological Q waves, imaging evidence of new loss of viable myocardium or new regional wall motion abnormality, or identification of intracoronary atherothrombosis or an acute angiographic culprit on coronary angiography. In appropriate low-risk patients with a non-ischemic electrocardiogram without active chest pain with a symptom onset >3-hours without recurrence, a single initial hs-cTnT<6 ng/L identifies patient with a very low risk in emergency department patient population. Greg Quevedo MD CHEMISTRY [facility] [address] [place] [address], * SCAN-CARDIAC STRIP (05/10/2024 7:07 AM ELECTRICITY TRADING ANALYST) Scanner OTHER * (ABNORMAL) MRSA/SA PCR (05/10/2024 12:54 AM ELECTRICITY TRADING ANALYST) MRSA DNA PCR Negative Negative 05/10/2024 2:43 AM ELECTRICITY TRADING ANALYST [facility] STAPHYLOCOCCUS AUREUS PCR Positive(A) Negative 05/10/2024 2:43 AM ELECTRICITY TRADING ANALYST [facility] Other SPECIMEN FROM INTERNAL NOSE / Unknown Non-Blood / Unknown 05/10/2024 12:54 AM ELECTRICITY TRADING ANALYST 05/10/2024 1:21 AM ELECTRICITY TRADING ANALYST Narrative [facility] - 05/10/2024 2:43 AM ELECTRICITY TRADING ANALYST S. aureus detected; NOT MRSA. Test result does not preclude MRSA nasal colonization. False negative for MRSA could be obtained if MRSA present in the sample is below threshold of detection. Eldon SERRANO MICROBIOLOGY [facility] [address] [place] [id number], * CENTRAL LINE (05/10/2024 12:13 AM ELECTRICITY TRADING ANALYST) Narrative Malika Dinh MD - 05/10/2024 12:13 AM ELECTRICITY TRADING ANALYST Malika Dinh MD ? 05/10/2024 12:15 AM CENTRAL LINE Date/Time: 05/10/2024 12:13 AM Performed by: Malika Dinh MD Authorized by: Malika Dinh MD ?? Consent: ??Consent obtained: ??Emergent situation [place] protocol: ??Patient identity confirmed: ??Arm band Pre-procedure details: ??Indication(s): central venous access, hemodynamic monitoring and insufficient peripheral access ?Hand hygiene: Hand hygiene performed prior to insertion ?Sterile barrier technique: All elements of maximal sterile technique followed ?Skin preparation: ??Chlorhexidine ??Skin preparation agent: Skin preparation agent completely dried prior to procedure ?? Sedation: ??Sedation type: ??Deep Anesthesia: ??Anesthesia method: ??None Procedure details: ??Location: ??L internal jugular ??Patient position: ??Supine ??Procedural supplies: ??Triple lumen ??Catheter size: ??7 Fr ??Landmarks identified: yes ?Ultrasound guidance: yes ?Ultrasound guidance timing: prior to insertion and real time ?Sterile ultrasound techniques: Sterile gel and sterile probe covers were used ?Number of attempts: ??1 ??Successful placement: yes ?? Post-procedure details: ??Post-procedure: ??Dressing applied and line sutured ??Assessment: ??No pneumothorax on x-ray, blood return through all ports, free fluid flow and placement verified by x-ray ??Procedure completion: ??Tolerated Malika Dinh MD IV ORD * XR CHEST 1 VIEW PICC OR CVAD PLACEMENT PORTABLE (05/09/2024 11:46 PM ELECTRICITY TRADING ANALYST) Anatomical Region Laterality Modality HEART, THORAX, CHEST Digital Rad iography 05/09/2024 11:4 9 PM ELECTRICITY TRADING ANALYST Narrative 05/09/2024 11:49 PM ELECTRICITY TRADING ANALYST For Patients: ??As a result of the Cures Act, medical imaging exams and procedure reports are released immediately into your electronic medical record. ??You may view this report before your referring provider. ??If you have questions, please contact your health care provider. Indication: Line placement, ETT placement Technique: Single view of the chest Comparison: Chest radiograph performed 12/24/2023 Findings/Impression: Left IJ line terminates in the SVC. Endotracheal tube terminates 1.0 centimeters above the tin. Cardiomegaly and prominent mediastinal shadow. Dictated by Oswald Rebollar MD @ May 09 2024 11:49PM (Electronically Signed) [email or web address] Procedure Note Oswald Rebollar MD - 05/09/2024 For Patients: As a result of the Cures Act, medical imagingexams and procedure reports are released immediately into your electronicmedical record. You may view this report before your referring provider.If you have questions, please contact your health care provider. Indication: Line placement, ETT placement Technique: Single view of the chest Comparison: Chest radiograph performed 12/24/2023 Findings/Impression: Left IJ line terminates in the SVC. Endotracheal tube terminates 1.0centimeters above the tin. Cardiomegaly and prominent mediastinalshadow. Dictated by Oswald Rebollar MD @ May 09 2024 11:49PM (Electronically Signed) [email or web address] Malika Dinh MD GENERAL IMAGING * IR PERCUTANEOUS TUBE PLACEMENT (05/09/2024 10:29 PM ELECTRICITY TRADING ANALYST) Anatomical Region Laterality Modality X-Ray Angiograph y Narrative 05/09/2024 10:57 PM ELECTRICITY TRADING ANALYST Procedure: 1. Percutaneous 10 F nephrostomy tube placement under sonographic and fluoroscopic guidance. 2. Antegrade nephrostogram. Indication: urosepsis Comparison: Same day CT Interventionalist: Kerri Maguire MD Fluoroscopy time: 10 minutes. Reference air kerma: 422 mGy. Contrast: 5 mL Estimated Blood Loss: <10 mL Medications: Cefepime Sedation: General anesthesia Complications: None immediate. Technique: The procedure, risks, and alternative therapies were discussed in detail, and written informed consent was obtained. A time out was performed to verify correct patient and procedure. ??General anesthesia was administered as above. The patient's pulse oximetry, EKG, and blood pressure were monitored by the anesthesia at all times. The right flank was prepped and draped in the usual sterile fashion. All elements of maximum sterile barrier technique were used. Initial ultrasound scanning demonstrated a mildly dilated right collecting system. Under ultrasound guidance, a posterior calyx was targeted and an 22 gauge trocar needle was attempted to be advanced into the collecting system though was unsuccessful. After a few attempts, the renal pelvis was accessed and a small amount of contrast was injected to dilate the renal collecting system. A mid pole calyx was then targeted and accessed with the 22 gauge needle using ultrasound and fluoroscopic guidance. A microwire was successfully advanced into the renal collecting system. An ultrasound image of the access was saved and sent to PACS. ?? Appropriate position within the collecting system was confirmed with the reflux of urine. The access was dilated with an AccuStick set and an Amplatz wire was placed in the renal pelvis. The tract was dilated. 10 Thai nephrostomy catheter was inserted over the wire and a loop was formed in the renal pelvis. Contrast injection demonstrates good placement of the pigtail loop within the renal pelvis. The pigtail loop was locked. It was secured to the skin with 2-0 Ethilon suture and a Deejay disc, covered with a sterile dressing, and connected to a drainage bag. Bloody urine output was present at the end of the procedure. The patient tolerated the procedure well without immediate post procedural complication. Findings: Initial ultrasound demonstrates a dilated ??right collecting system. 10 Thai nephrostomy tube was placed. Completion antegrade nephrostogram demonstrates satisfactory position of the pigtail catheter. Impression: Successful placement of a right 10 Thai nephrostomy tube using ultrasound and fluoroscopic guidance. Recommendations: - monitor for signs of bleeding or worsening sepsis given challenging PCN placement. Please contact me with any questions. Kerri Maguire MD Vascular & Interventional Radiology [facility] [phone] Kerri phillips MD IR * (ABNORMAL) URINALYSIS MICROSCOPIC (05/09/2024 9:49 PM ELECTRICITY TRADING ANALYST) Pathologist [facility] RBC >100(A) 0-2, None Seen /HPF 05/09/2024 11:09 PM ELECTRICITY TRADING ANALYST [facility] WBC 26-50(A) 0-2, 3-5, None Seen /HPF 05/09/2024 11:09 PM ELECTRICITY TRADING ANALYST [facility] BACTERIA Few None Seen, Rare, Few Bacteria/ HPF 05/09/2024 11:09 PM ELECTRICITY TRADING ANALYST [facility] EPITHELIAL CELLS None Seen None Seen, Few Epi/HPF 05/09/2024 11:09 PM ELECTRICITY TRADING ANALYST [facility] Urine URINE SPECIMEN / Unknown Non-Blood / Unknown 05/09/2024 9:49 PM ELECTRICITY TRADING ANALYST 05/09/2024 10:37 PM ELECTRICITY TRADING ANALYST Eldon ANNE URINE [facility] [address] [place] [address], [place] * (ABNORMAL) URINE CULTURE (05/09/2024 9:49 PM ELECTRICITY TRADING ANALYST) CULTURE RESULT(A) 05/12/2024 9:39 AM ELECTRICITY TRADING ANALYST [facility] CULTURE 50,000-100,000 CFU/mL Klebsiella pneumoniae 05/12/2024 9:39 AM ELECTRICITY TRADING ANALYST [facility] Urine URINE SPECIMEN / Unknown Non-Blood / Unknown 05/09/2024 9:49 PM ELECTRICITY TRADING ANALYST 05/09/2024 10:37 PM ELECTRICITY TRADING ANALYST Narrative Organism Antibiotic Method Susceptibility Klebsiella pneumoniae TRIMETHOPRIM/SULF <=07/16: S Klebsiella pneumoniae AMPICILLIN >=32: R Klebsiella pneumoniae CEFAZOLIN 4: I Klebsiella pneumoniae CEFAZOLIN-UC 4: S Comment:Cefazolin-UC interpretations are for therapy of uncomplicated UTIs due to E.coli, K.pneumoniae, or P.mirablis. Cefazolin breakpoint is used as a surrogate to predict results for the oral agents - cefdinir, cefuroxime, and cephalexin, when used for therapy of uncomplicated UTIs due to E coli, K, pneumoniae, and P. mirabilis. The FDA recommends cefadroxil susceptibility can be deduced from cefazolin. Klebsiella pneumoniae GENTAMICIN <=1: S Klebsiella pneumoniae CEFTRIAXONE <=0.25: S Klebsiella pneumoniae CEFTAZIDIME <=0.5: S Klebsiella pneumoniae LEVOFLOXACIN <=0.12: S Klebsiella pneumoniae CIPROFLOXACIN 0.12: S Klebsiella pneumoniae PIPERACILLIN/TAZO 8: S Klebsiella pneumoniae AMPICILLIN/SULBACTAM 8: S Klebsiella pneumoniae CEFEPIME <=0.12: S Klebsiella pneumoniae MEROPENEM <=0.25: S Klebsiella pneumoniae NITROFURANTOIN 64: I Greg Quevedo MD MICROBIOLOGY [facility] [address] [place] [address], * (ABNORMAL) Urinalysis W Reflex Microscopic if Positive (05/09/2024 9:49 PM ELECTRICITY TRADING ANALYST) COLOR Red(A) Yellow Color 05/09/2024 11:09 PM ELECTRICITY TRADING ANALYST [facility] CLARITY Cloudy(A) Clear Clarity 05/09/2024 11:09 PM ELECTRICITY TRADING ANALYST [facility] SPECIFIC GRAVITY,URINE >=1.030(A) 1.010, 1.015, 1.020, 1.025 05/09/2024 11:09 PM ELECTRICITY TRADING ANALYST [facility] PH,URINE Unable to interpret due to interfering substance(A) 6.0, 7.0, 8.0, 5.5, 6.5, 7.5, 8.5 05/09/2024 11:09 PM ELECTRICITY TRADING ANALYST [facility] UROBILINOGEN, QUALITATIVE Unable to interpret due to interfering substance(A) Normal EU/dl 05/09/2024 11:09 PM ELECTRICITY TRADING ANALYST [facility] PROTEIN, URINE Unable to interpret due to interfering substance(A) Negative mg/dL 05/09/2024 11:09 PM ELECTRICITY TRADING ANALYST [facility] GLUCOSE, URINE Unable to interpret due to interfering substance(A) Negative mg/dL 05/09/2024 11:09 PM ELECTRICITY TRADING ANALYST [facility] KETONES,URINE Unable to interpret due to interfering substance(A) Negative mg/dL 05/09/2024 11:09 PM ELECTRICITY TRADING ANALYST [facility] BILIRUBIN,URI NE Unable to interpret due to interfering substance(A) Negative 05/09/2024 11:09 PM ELECTRICITY TRADING ANALYST [facility] OCCULT BLOOD,URINE Unable to interpret due to interfering substance(A) Negative 05/09/2024 11:09 PM ELECTRICITY TRADING ANALYST [facility] NITRITE Unable to interpret due to interfering substance(A) Negative 05/09/2024 11:09 PM ELECTRICITY TRADING ANALYST [facility] LEUKOCYTE ESTERASE Unable to interpret due to interfering substance(A) Negative 05/09/2024 11:09 PM ELECTRICITY TRADING ANALYST [facility] Urine URINE SPECIMEN / Unknown Non-Blood / Unknown 05/09/2024 9:49 PM ELECTRICITY TRADING ANALYST 05/09/2024 10:37 PM ELECTRICITY TRADING ANALYST Eldon ANNE URINE [facility] [address] [place] [address], * HCHG TUBE PR1, HCHG STYLET PR1 (05/09/2024 9:38 PM ELECTRICITY TRADING ANALYST) Narrative Tresa Mcclendon CRNA - 05/09/2024 9:38 PM ELECTRICITY TRADING ANALYST Tresa Mcclendon CRNA ? 05/09/2024 ??9:41 PM Procedure: ETT Patient location during procedure: OR ETT Properties Mask Ventilation: not attempted Final Technique: direct laryngoscopy Type: straight Location: oral Tube Size: 7.0 mm Stylet: yes Laryngoscope Blade: Medina Blade Size: 2 Cormack-Lehane Grade View: 1 Insertion Attempts: 1 Placement Verification: auscultation, end tidal CO2 and symmetrical chest wall movement Assessment: pharynx clear, atraumatic and dentition unchanged Secured at: 21 Measured From: lips Difficulty: 0 (not difficult) Fidencio Coello MD ANESTHESIA PX N OTE ORDERABLES * CT ABDOMEN PELVIS WO (05/09/2024 8:52 PM ELECTRICITY TRADING ANALYST) Anatomical Region Laterality Modality Abdomen, Pelvis, AORTA, LIVER, SPLEEN Computed Tomography 05/09/2024 10:3 3 PM ELECTRICITY TRADING ANALYST Narrative 05/09/2024 10:33 PM ELECTRICITY TRADING ANALYST For Patients: ??As a result of the Century Cures Act, medical imaging exams and procedure reports are released immediately into your electronic medical record. ??You may view this report before your referring provider. ??If you have questions, please contact your health care provider. INDICATION: Abdominal pain TECHNIQUE: CT Abdomen and pelvis without i.v. contrast. Coronal and sagittal reformats were obtained. COMPARISON: None FINDINGS: Lower chest: Mild bibasilar atelectasis and senescent fibrosis is seen. Mild biventricular cardiomegaly is partially visualized. Moderate calcifications of the mitral valve annulus are present. Severe atherosclerotic calcifications of the right coronary artery is noted. Liver: Unremarkable. Spleen: Unremarkable. Pancreas: Unremarkable. Gallbladder: Numerous calcified layering gallstones are noted. Kidney: Excretion of contrast into the renal collecting systems and ureters arenoted, which limits evaluation for the presence of stones. Both renal parenchyma are hyperdense in appearance which may be due to retention of previously administered contrast. There is an 8 mm cyst present within the lower pole of the right kidney. Adrenal: Unremarkable. Bowel: The stomach, small bowel, and colon are unremarkable. The appendix is normal in appearance and size. Vascular: Unremarkable. Lymph: Unremarkable. Peritoneum: Unremarkable. No pneumoperitoneum is seen. No significant ascites is noted. Pelvis: Unremarkable. Soft tissue: Unremarkable. Bone: Unremarkable for age. IMPRESSIONS: 1. Mild biventricular cardiomegaly is partially visualized. 2. Both renal parenchyma are hyperdense in appearance which may be due to retention of previously administered contrast. This may be due to renal insufficiency, ATN, or dehydration. Dictated by Jose Angel MD @ 05/09/2024 10:29:18 PM Please note that all CT scans at this facility use dose modulation, iterative reconstruction, and/or weight-based dosing when appropriate to reduce radiation dose to as low as reasonably achievable. Dictated by: Jose Angel MD @ 05/09/2024 22:33:21 (Electronically Signed) Procedure Note Jose Angel MD - 05/09/2024 For Patients: As a result of the Cures Act, medical imagingexams and procedure reports are released immediately into your electronicmedical record. You may view this report before your referring provider.If you have questions, please contact your health care provider. INDICATION: Abdominal pain TECHNIQUE: CT Abdomen and pelvis without i.v. contrast. Coronal andsagittal reformats were obtained. COMPARISON: None FINDINGS: Lower chest: Mild bibasilar atelectasis and senescent fibrosis is seen.Mild biventricular cardiomegaly is partially visualized. Moderatecalcifications of the mitral valve annulus are present. Severeatherosclerotic calcifications of the right coronary artery is noted. Liver: Unremarkable. Spleen: Unremarkable. Pancreas: Unremarkable. Gallbladder: Numerous calcified layering gallstones are noted. Kidney: Excretion of contrast into the renal collecting systems andureters arenoted, which limits evaluation for the presence of stones. Bothrenal parenchyma are hyperdense in appearance which may be due toretention of previously administered contrast. There is an 8 mm cystpresent within the lower pole of the right kidney. Adrenal: Unremarkable. Bowel: The stomach, small bowel, and colon are unremarkable. The appendixis normal in appearance and size. Vascular: Unremarkable. Lymph: Unremarkable. Peritoneum: Unremarkable. No pneumoperitoneum is seen. No significantascites is noted. Pelvis: Unremarkable. Soft tissue: Unremarkable. Bone: Unremarkable for age. IMPRESSIONS: 1. Mild biventricular cardiomegaly is partially visualized. 2. Both renal parenchyma are hyperdense in appearance which may be due toretention of previously administered contrast. This may be due to renalinsufficiency, ATN, or dehydration. Dictated by Jose Angel MD @ 05/09/2024 10:29:18 PM Please note that all CT scans at this facility use dose modulation,iterative reconstruction, and/or weight-based dosing when appropriate toreduce radiation dose to as low as reasonably achievable. Dictated by: Jose Angel MD @ 05/09/2024 22:33:21 (Electronically Signed) Eldon W [facility] * (ABNORMAL) CBC WITH AUTO DIFFERENTIAL (05/09/2024 8:26 PM ELECTRICITY TRADING ANALYST) WHITE BLOOD COUNT 11.0 4.5 - 11.0 thou/cu mm 05/09/2024 9:21 PM [facility] RED BLOOD COUNT 3.83(L) 4.00 - 5.20 mil/cu mm 05/09/2024 9:21 PM [facility] HEMOGLOBIN 11.2(L) 12.0 - 16.0 g/dL 05/09/2024 9:21 PM [facility] HEMATOCRIT 36.4 33.0 - 51.0 % 05/09/2024 9:21 PM [facility] MCV 95 80 - 100 fL 05/09/2024 9:21 PM [facility] MCH 29.2 26.0 - 34.0 pg 05/09/2024 9:21 PM [facility] MCHC 30.8(L) 32.0 - 36.0 g/dL 05/09/2024 9:21 PM [facility] RDW 16.2(H) 11.5 - 15.5 % 05/09/2024 9:21 PM [facility] PLATELET COUNT 120(L) 140 - 440 thou/cu mm 05/09/2024 9:21 PM [facility] MPV 10.0 6.5 - 11.0 fL 05/09/2024 9:21 PM ELECTRICITY TRADING ANALYST [facility] NRBC 0.5 % 05/09/2024 9:21 PM ELECTRICITY TRADING ANALYST [facility] ABS NRBC 0.1 thou /cu mm 05/09/2024 9:21 PM ELECTRICITY TRADING ANALYST [facility] Blood BLOOD SPECIMEN / Unknown Non-Lab Venipuncture / Unknown 05/09/2024 8:26 PM ELECTRICITY TRADING ANALYST 05/09/2024 8:34 PM ELECTRICITY TRADING ANALYST Eldon SERRANO HEMATOLOGY Performing Organization Address City/[facility]/ZIP Co de Phone Number [facility] [address] [place] [address], * (ABNORMAL) RED CELL MORPHOLOGY (05/09/2024 8:26 PM ELECTRICITY TRADING ANALYST) ELLIPTOCYTES Few 05/09/2024 9:21 PM ELECTRICITY TRADING ANALYST [facility] POLYCHROMASIA Slight 05/09/2024 9:21 PM ELECTRICITY TRADING ANALYST [facility] RBC COMMENT Present(A) RBC morphology appears normal, RBC morphology within normal limits for newborns. 05/09/2024 9:21 PM ELECTRICITY TRADING ANALYST [facility] WBC VACUOLATED GRANULOCYTES Present 05/09/2024 9:21 PM ELECTRICITY TRADING ANALYST [facility] Blood BLOOD SPECIMEN / Unknown Non-Lab Venipuncture / Unknown 05/09/2024 8:26 PM ELECTRICITY TRADING ANALYST 05/09/2024 8:34 PM ELECTRICITY TRADING ANALYST Eldon SERRANO HEMATOLOGY [facility] [address] [place] [address], [place] * (ABNORMAL) MANUAL DIFFERENTIAL (05/09/2024 8:26 PM ELECTRICITY TRADING ANALYST) % NEUTROPHILS 92.0 % 05/09/2024 9:21 PM ELECTRICITY TRADING ANALYST [facility] % LYMPHOCYTES 4.0 % 05/09/2024 9:21 PM ELECTRICITY TRADING ANALYST [facility] % MONOCYTES 2.0 % 05/09/2024 9:21 PM ELECTRICITY TRADING ANALYST [facility] % EOSINOPHILS 2.0 % 05/09/2024 9:21 PM ELECTRICITY TRADING ANALYST [facility] % BASOPHILS 0.0 % 05/09/2024 9:21 PM ELECTRICITY TRADING ANALYST [facility] NEUTROPHILS ABSOLUTE 10.1(H) 1.7 - 7.0 thou/cu mm 05/09/2024 9:21 PM ELECTRICITY TRADING ANALYST [facility] LYMPHOCYTES ABSOLUTE 0.4(L) 0.9 - 2.9 thou/cu mm 05/09/2024 9:21 PM ELECTRICITY TRADING ANALYST [facility] MONOCYTES ABSOLUTE 0.2 <0.9 thou/cu mm 05/09/2024 9:21 PM ELECTRICITY TRADING ANALYST [facility] EOSINOPHILS ABSOLUTE 0.2 <0.5 thou/cu mm 05/09/2024 9:21 PM ELECTRICITY TRADING ANALYST [facility] BASOPHILS ABSOLUTE 0.0 <0.3 thou/cu mm 05/09/2024 9:21 PM ELECTRICITY TRADING ANALYST [facility] Blood BLOOD SPECIMEN / Unknown Non-Lab Venipuncture / Unknown 05/09/2024 8:26 PM ELECTRICITY TRADING ANALYST 05/09/2024 8:34 PM ELECTRICITY TRADING ANALYST Eldon Dykes [facility] [address] [place] [id number], * SCAN-CARDIAC STRIP (05/09/2024 12:00 AM ELECTRICITY TRADING ANALYST) Narrative 05/09/2024 12:00 AM ELECTRICITY TRADING ANALYST Ordered by an unspecified provider. Other Clinical Staff OTHER * SCAN-RADIOLOGY REPORT (05/09/2024 12:00 AM ELECTRICITY TRADING ANALYST) Anatomical Region Laterality Modality Other Narrative 05/09/2024 12:00 AM ELECTRICITY TRADING ANALYST Ordered by an unspecified provider. Other Clinical Staff OTHER from Last 3 Months Advance Directives * Full Code (Latest Code Status on File) Date Activated Date Inactivated Comments 05/09/2024 7:17 PM Question Answer Comments Code Status Discussion: Unable to Assess Preferences, Provider to review later * Full Code Date Activated Date Inactivated Comments 01/17/2024 8:32 [...] Question Answer Comments Code Status Discussion: Discussed Care Teams Chemistry Laboratory Technician Relationship Specialty Start Date End Date John San MD [address] [place] [address] PCP - General Family Practice 11/12/22
--- OUTSIDE RECORDS SUMMARY | 2024-05-13 19:35 | XMS_ITS | Clinical Summary ---
Author Organization [facility] Address [address], [place] [address] Care Team Providers Care Groundskeeping Maintenance Worker Name Role Phone No Primary/Referring, Felipe Primary Care Provider Unavailable Source Comments You are receiving this document as you are listed as the primary care provider,follow-up provider, or the patient has been referred to you for consultation.This is in compliance with the Medicare and[facility] Hospital[facility] EHR Incentive Program,which states Providers who transition their patient to another setting of careor provider of care or refers their patient to another provider of care shouldprovide summary care record for each transition of care or referral. [facility] Allergies No known active allergies [...] Tobacco: Never Tobacco Cessation:Counseling Given: Not Answered [facility] Utilities Answer Date Recorded In the past 12 months has e [employer], gas, oil, or water company threatened to [...] this topic Medical Devices Implanted Type Area Contact Center Agent Device Identifier Shelf Expiration Date Model / Serial / Lot Stent Ureteral Ultra 6x22 - [employer]aris - [id number] Implanted:Qty: 1 on 09/29/2023 by Jose Gee MD at [facility] DEVICE Left: [employer] 05/14/2026 [id number] / / [id number] Explanted Type Area Contact Center Agent Device Identifier Shelf Expiration Date Model / Serial / Lot Stent Ureteral Ultra 6x22 - Polaris - [id number] Implanted:Qty: 1 on 08/27/2023 by Mira Price MD at [facility] Explanted:Qty: 1 on 09/29/2023 by Jose Gee MD at [facility] DEVICE Left: [employer] 04/01/2026 [id number] / / [id number] Advance Directives * Full Code (Latest Code [...] 3:52 AM 08/27/2023 5:53 AM Care Teams Groundskeeping Maintenance Worker Relationship Specialty Start Date End Date No Primary/Referring, Phy PCP - General 08/26/23
== END 2024-05-09 17:16 | disposition home or self-care (01) ==
LOC: AMB 05-13 19:34
PROVIDERS: PCP Family Medicine; Visit Provider Family Medicine
DX: N39.0 Urinary tract infection, site not specified (principal); A41.9 Sepsis, unspecified organism; N20.1 Calculus of ureter
CPT/HCPCS: A0425; A0427

== ENCOUNTER 2024-09-05 09:11 | Outpatient (CLI) | payer MEDICARE, MEDICAID, SELFPAY | END 2024-09-05 09:12 | disposition home or self-care (01) | LOC: NFLDREF 09:12 | PROVIDERS: PCP Family Medicine; Visit Provider Family Medicine | DX: Z01.818 Encounter for other preprocedural examination (principal) | CPT/HCPCS: 80048 ==

== ENCOUNTER 2024-10-31 07:58 | Outpatient (CLI) | payer MEDICARE, MEDICAID, SELFPAY | END 2024-10-31 07:59 | disposition home or self-care (01) | PROVIDERS: PCP Family Medicine; Visit Provider Family Medicine | DX: M54.16 Radiculopathy, lumbar region (principal); M51.26 Other intervertebral disc displacement, lumbar region; M48.062 Spinal stenosis, lumbar region with neurogenic claudication | CPT/HCPCS: 64483; J1100; Q9966 ==

== ENCOUNTER 2024-12-13 09:53 | Outpatient (CLI) | payer MEDICARE, MEDICAID, SELFPAY | END 2024-12-13 09:54 | disposition home or self-care (01) | LOC: NFLDREF 09:56 | PROVIDERS: PCP Family Medicine; Visit Provider Internal Medicine | DX: E78.5 Hyperlipidemia, unspecified (principal); D64.9 Anemia, unspecified; R55 Syncope and collapse; N39.0 Urinary tract infection, site not specified | CPT/HCPCS: 80053; 87086 ==

== ENCOUNTER 2024-12-15 09:00 | Outpatient (CLI) | payer MEDICARE, MEDICAID, SELFPAY ==
--- OUTSIDE RECORDS SUMMARY | 2024-09-26 19:00 | XMS_ITS | Continuity of Care Document ---
Author Organization [facility] Address [address] [address] [place] [address] Phone Care Team Providers Care Litigation Secretary Name Role Phone Nadeem PALAFOX, Napoleon Unavailable Unavailable Procedures Procedure Date Ugi Endo; Dx W/wo Collec Specm 25 Ugi Endo; W/bx 1/mx Subsqt Hosp-da E&m Minr Compl 5 Subsqt Hosp-da E&m Minr Compl 5 Subsqt Hosp-da E&m Minr Compl 5 Subsqt Hosp-da E&m Minr Compl 5 Init Hosp-da E&m Mod Severity 4 Ugi Endo; Dx W/wo Collec Specm 24 Subsqt Hosp-da E&m Minr Compl 4 Init Hosp-da E&m Hi Severity 7 24 Ugi Endo; W/contrl Bleed Any M 24 Ugi Endo; W/bx 1/mx Moderate sedation, initial 15 minutes De Advance Directives Directive Yes / No Effective Date File Name No Information Encounters Encounter Description Practice Location Reason(s) For Visit Diagnoses Date Provider Providers Copied on Encounter [facility], [address] [address], [place], [id number], [place] tel:[phone] [facility] No Information 5 Nadeem PALAFOX Bender. [address] [facility], [place], [id number], [place]. tel:[phone] Referring Provider: Napoleon Silver MD, [address] [facility] [address], [place], [address] . tel:[phone] [facility], [address] [address], [place], [address], [place] tel:[phone] [facility] No Information 5 Lake Gomez. [address], [place], [address], [place]. tel:[phone] [facility], [address] [address], [place], [address], [place] tel:[phone] [facility] Chronic gastric ulcer without hemorrhage and without perforation 5 Ria Hendrix. [address], [place], [address], [place]. tel:[phone] [facility], [address] [address], [place], [address], [place] tel:[phone] [facility] No Information 5 Duke Colbert. [address], [place], [address], [place]. tel:[phone] Referring Provider: Filemon PALAFOX X, [address] [facility], [place], [address] . tel:[phone] Subst Hosp-da E&m Minr Compl [facility], [address] [address], [place], [address], [place] tel:[phone] [facility] No Information 5 Tanner Khalil. [address], [place], [address], [place]. tel:[phone] Referring Provider: Simran SY, [address] [facility] [address], [place], [address] . tel:[phone] Subsqt Hosp-da E&m Minr Compl [facility], [address] [address], [place], [address], [place] tel:[phone] [facility] No Information 5 Nadeem Bender. [address], [place], [address], [place]. tel:[phone] Referring Provider: Napoleon Silver MD, [address] [facility], [place], [address] . tel:[phone] Init Hosp-da E&m Mod Severity [facility], [address] [address], [place], [address], [place] tel:[phone] [facility] No Information 4 Martinez Toro. [address] [facility], [address], [place], [address], [place]. tel:[phone] Referring Provider: John San MD, [address] [place], [address]. tel:[phone] [facility], [address] [address], [place], [address], [place] tel:[phone] [facility] Gastrointestina l hemorrhage, unspecified gastrointestina l hemorrhage type 4 Jeromy Harvey. [address], [place], [address], [place]. tel:[phone] Subsqt Hosp-da E&m Minr Compl [facility], [address] [address], [place], [address], [place] tel:[phone] [facility] No Information 4 Abhay Garcia. [address], [place], [address], [place]. tel:[phone] Referring Provider: Radha SY, [address] [facility] [address], [place], [address] . tel:[phone] Init Hosp-da E&m Hi Severity 7 [facility], [address] [address], [place], [id number], [place] tel:[phone] [facility] No Information 4 Jeromy Harvey. [address] [facility], [address], [place], [id number], [place]. tel:[phone] Referring Provider: John San MD, [address] [place], [address]. tel:[phone] Family History Family Member Type Diagnosis Age At Onset No Information Immunizations Vaccine Date Status Comments tetanus toxoid, reduced diphtheria toxoid, and acellular pertussis vaccine, adsorbed administered Note: [facility] b i-directional interface ; Source: Other Registry SARS-COV-2 (COVID-19) vaccin e, mRNA, spike protein, LNP, preservative free, 30 mcg/0.3mL dose administered Note: [facility] bi-direct ional interface ; Source: Other Registry SARS-COV-2 (COVID-19) vaccin e, mRNA, spike protein, LNP, preservative free, 30 mcg/0.3mL dose administered Note: [facility] bi-direct ional interface ; Source: Other Registry Prevnar 13 administered Note: [facility] bi-d irectional interface ; Source: Other Registry Influenza, high-dose, split virus, quadrivalent, injectable, preservative free administered Note: [facility] bi-direct ional interface ; Source: Other Registry Influenza administered Note: [facility] bi-d irectional interface ; Source: Other Registry Influenza, split virus, trivalent, injectable, contains preservative administered Note: [facility] bi-direct ional interface ; Source: Other Registry Pneumovax 23 administered Note: [facility] bi-d irectional interface ; Source: Other Registry Payers Payer name Insurance type Covered republican ID Authoriza tion(s) Medicare NGS [id number] [facility] [id number] Social History Type Description Quantity Date Captured Comments Sex Female Smoking Status No Information Chief Complaint And Reason For Visit No Information Reason For Referral Reason For Referral No Information Plan Of Treatment Date Type Action Status Referral Ordered: EGD Appointment date/timeframe: 08/07/2024 ordered History Of Present Illness Encounter Date Complaint History Of Prese nt Illness No Information Functional Status Date Functional Assessmen t No Information Instructions Date Instruction Additional Infor mation No Information Assessments Type Assessment Date No Information Patient Care Teams Name Effective Dates (start - stop) Status Members No Information
--- OUTSIDE RECORDS SUMMARY | 2024-09-26 19:00 | XMS_ITS | Continuity of Care Document ---
Author Organization [facility] Address [address] [address] [place] [address] Phone Care Team Providers Care Cos[employer]ilet[employer] Salesperson Name Role Phone Nadeem PALAFOX, Napoleon Unavailable [...] Encounter [facility], [address] [address], [place], [id number], [place] tel:[phone] [facility] No Information 5 Nadeem PALAFOX Bender. [address] [facility], [address], [place], [id number], [place]. tel:[phone] Referring Provider: Napoleon Silver MD, [address] [facility] [address], [place], [address] . tel:[phone] [facility], [address] [address], [place], [address], [place] tel:[phone] [facility] No Information 5 [place] Gomez. [address] [facility] [address], [place], [address], [place]. tel:[phone] [facility], [address] [address], [place], [address], [place] tel:[phone] [facility] Chronic gastric ulcer without hemorrhage and without perforation 5 Ria Hendrix. [address] [facility] [address], [place], [address], [place]. tel:[phone] [facility], [address] [address], [place], [address], [place] tel:[phone] [facility] No Information 5 Duke Colbert. [address] [facility] [address], [place], [address], [place]. tel:[phone] Referring Provider: Filemon PALAFOX X, [address] [facility] [address], [place], [address] . tel:[phone] Subst Hosp-da E&m Minr Compl [facility], [address] [address], [place], [address], [place] tel:[phone] [facility] No Information 5 Tanner Khalil. [address] [facility] [address], [place], [address], [place]. tel:[phone] Referring Provider: Simran SY, [address] [facility] [address], [place], [address] . tel:[phone] Subsqt Hosp-da E&m Minr Compl [facility], [address] [address], [place], [address], [place] tel:[phone] [facility] No Information 5 Nadeem Bender. [address] [facility] [address], [place], [address], [place]. tel:[phone] Referring Provider: Napoleon Silver MD, [address] [facility] [address], [place], [address] . tel:[phone] Init Hosp-da E&m Mod Severity [facility], [address] [address], [place], [address], [place] tel:[phone] [facility] No Information 4 Martinez Toro. [address] [facility], [address], [place], [address], [place]. tel:[phone] Referring Provider: John San MD, [address] [place], [address]. tel:[phone] [facility], [address] [address], [place], [address], [place] tel:[phone] [facility] Gastrointestina l hemorrhage, unspecified gastrointestina l hemorrhage type 4 Jeromy Harvey. [address] [facility] [address], [place], [address], [place]. tel:[phone] Subsqt Hosp-da E&m Minr Compl [facility], [address] [address], [place], [address], [place] tel:[phone] [facility] No Information 4 Abhay Garcia. [address] [facility] [address], [place], [address], [place]. tel:[phone] Referring Provider: Radha SY, [address] [facility] [address], [place], [address] . tel:[phone] Init Hosp-da E&m Hi Severity 7 [facility], [address] [address], [place], [id number], [place] tel:[phone] [facility] No Information 4 Jeromy Harvey. [address] [facility], [address], [place], [address], [place]. tel:[phone] Referring Provider: John San MD, [address] [place], [address]. tel:[phone] Family History Family Member Type Diagnosis Age [...] Registry Payers Payer name Insurance type Covered alliance party ID Authoriza tion(s) Medicare NGS [id number] [facility] [id number] Social History Type Description Quantity Date Captured [...]
--- OUTSIDE RECORDS SUMMARY | 2024-12-15 09:18 | XMS_ITS | Clinical Summary ---
Author Organization [facility] Address [address] [address] Care Team Providers Care Bead Wire Taper Name Role Phone No Primary/Referring, Laureny Primary Care Provider Unavailable Source Comments You are receiving this document as you are listed as the primary care provider,follow-up provider, or the patient has been referred to you for consultation.This is in compliance with the Medicare and[facility] EHR Incentive Program,which states Providers who transition their patient to another setting of careor provider of care or refers their patient to another provider of care shouldprovide summary care record for each transition of care or referral. [facility] Allergies No known active allergies Medications rosuvastatin (CRESTOR) 10 MG tablet Take 1 Tablet (10 mg) by mouth daily. 4 Active metoprolol succinate (TOPROL XL) 25 MG 24 hour release tablet Take 0.5 Tablets (12.5 mg) by mouth daily. Active nitroglycerin (NITROSTAT) 0.[address] 1 Tablet (0.4 mg) under tongue every 5 minutes as needed for Chest Pain. 4 Active gabapentin (NEURONTIN) 300 MG capsule Take 1 Capsule (300 mg) by mouth three times a day. 4 Active clopidogrel (PLAVIX) 75 MG tablet Take 1 Tablet (75 mg) by mouth daily. 4 Active furosemide (LASIX) 20 MG tablet Take 1 Tablet (20 mg) by mouth daily. HOLD- Do not restart until Sendy is eating and drinking well 4 Active lisinopril (ZESTRIL) 2.5 MG tablet Take 1 Tablet (2.5 mg) by mouth daily. HOLD- Do not restart until Ma is eating and drinking well 4 Active acetaminophen (TYLENOL) 325 MG tabletIndicatio ns:Pain Take 2 Tablets (650 mg) by mouth every 6 hours as needed. Indications: Pain 100 Tablet 09/30/2023 12:07 PM CDT 4 Active cyanocobalamin (VITAMIN B12) 1000 MCG tabletIndicatio ns:Vitamin B12 Deficiency Take 1 Tablet (1,000 mcg) by mouth daily. Indications: Inadequate Vitamin B12 30 Tablet 1 09/30/2023 12:07 PM CDT 4 Active ferrous sulfate 325 (65 Fe) MG tabletIndicatio ns:Iron Deficiency Take 1 Tablet (325 mg) by mouth two times a day with meals. Indications: Iron Deficiency 60 Tablet 1 09/30/2023 12:07 PM CDT 4 Active Active Problems Problem Noted Date Diagnosed [...] Tobacco: Never Tobacco Cessation:Counseling Given: Not Answered [facility] Utilities Answer Date Recorded In the past 12 months has e [employer], gas, oil, or water [employer] threatened to shut off services in your [...] in a long-term (including now)? No 09/27/2023 Comments Unknown Sex and Gender Information Value Date Recorded Sex Assigned at Not on file Legal Sex Female 7:21 AM CDT Gender Identity Not on file Sexual Orientation Not on file Last Filed Vital Signs Vital Sign Reading Time Taken Comments Blood Pressure 130/60 06/20/2024 1:30 PM PLANNING ANALYST Pulse 89 06/20/2024 1:30 PM PLANNING ANALYST Temperature 36.7 C (98.1 F) 06/20/2024 11:30 AM PLANNING ANALYST Respiratory Rate 16 06/20/2024 1:30 PM PLANNING ANALYST Oxygen Saturation 95% 06/20/2024 1:30 PM PLANNING ANALYST Inhaled Oxygen Concentration - - Weight 59.7 kg (131 lb 11.2 oz) 024 12:56 AM CDT Height 129.5 cm (4' 3) 09/27/2023 12:5 6 AM CDT Body Mass Index 35.6 09/27/2023 12:56 AM CDT Plan of Treatment Health Maintenance Due Date Last Done Comments Medicare Annual Wellness Visit 1945 Tuberculosis Screening 1945 Zoster/Shingles Vaccine (1 of 2) 1994 Dexa 2009 RSV Vaccine (1 - 1-dose 75+ series) 09/16/2019 COVID-19 Vaccine (3 - season) 2024 08/31/2020, 08/10/2020 Influenza Vaccine (Season Ended) 2025 04/15/2020, 03/20/2019, 04/11/2018, Additional history exists DTaP/Tdap/Td Vaccine (2 - Tdap) 11/18/2030 11/18/2020, 03/17/2000, 10/25/1981, Additional history exists Pneumococcal Vaccine 50+ Yrs Completed 04/15/2020, 02/12/2010 HepA Vaccine Aged Out No longer eligi ble based on patient's age to complete this topic HepB Vaccine Aged Out No longer eligi ble based on patient's age to complete this topic Hib Vaccine Aged Out No longer eligi ble based on patient's age to complete this topic MCV4 Vaccine Aged Out No longer eligi ble based on patient's age to complete this topic Meningococcal B Vaccine Aged Out No l onger eligible based on patient's age to complete this topic Medical Devices Implanted Type Area Repacker Device Identifier Shelf Expiration Date Model / Serial / Lot Stent Ureteral Ultra 6x22 - [employer]aris - [id number] Implanted:Qty: 1 on 09/29/2023 by Jose Gee MD at [facility] DEVICE Left: [employer] 05/14/2026 [id number] / / [id number] Explanted Type Area Repacker Device Identifier Shelf Expiration Date Model / Serial / Lot Stent Ureteral Ultra 6x22 - [employer]aris - [id number] Implanted:Qty: 1 on 08/27/2023 by Mira Price MD at [facility] Explanted:Qty: 1 on 09/29/2023 by Jose Gee MD at [facility] DEVICE Left: [employer] 04/01/2026 [id number] / / [id number] Insurance MEDICARE [facility] Advance Directives * Full Code (Latest Code [...] 3:52 AM 08/27/2023 5:53 AM Care Teams Bead Wire Taper Relationship Specialty Start Date End Date No Primary/Referring, Phy PCP - General 08/26/23
--- OUTSIDE RECORDS SUMMARY | 2024-12-15 09:19 | XMS_ITS | Clinical Summary ---
Author Organization [facility] Address [address] [place] [id number] Care Team Providers Care Dress Fitter Name Role Phone John San MD Primary Care Provider [phone] Allergies No known active allergies Medications diclofenac topical (VOLTAREN) 1 % gelIndications:Pa in Apply 2 g topically to affected area(s) 4 times daily if needed (pain). Active multivitamin pediatric chewable tabletIndications :Debility Take 1 Tablet by mouth or nasogastric tube once daily. Active nitroglycerin (NITROSTAT) 0.4 mg sublingual tabletIndications :Chest pain, unspecified type Place 1 Tablet (0.4 mg) under the tongue every 5 minutes if needed for Chest pain 1st choice. Up to 3 tablets in 15 minutes. Active stomahesive topical (POOP GOOP) creamIndications: Rash Apply topically to affected area(s) three times daily. Active durable medical equipment (DME)Indications: Ischemic finger,Septic shock (HC) Transport chair 1 Each Active apixaban (ELIQUIS) 5 mg tabletIndications :deep venous thrombosis Take 1 Tablet (5 mg) by mouth two times daily. 60 Tablet 5 10:47 AM DELIVERY TECH Active tube feedingIndication s:Duodenal ulcer Length of need: Greater than 90 days.Tube feeding formula: Jevity 1.2 Tube feeding rate: per Pump: 50 mLs per hour over 24 hours via gastrojejunostomy Water flush: 30 mLs 4 times per day via jejunostomy Medications via: G Tube Supplies needed for: Pump Feedings: feeding pump, IV pole, feeding set, 60 cc syringes, drain sponges, backpack 1 Each 025 Active acetaminophen (TYLENOL EXTRA STRGTH) 500 mg tabletIndications :Pain Administer 2 Tablets (1,000 mg) via G-tube three times daily. Max acetaminophen dose: 4000mg in 24 hrs. 180 Tablet 025 Active lansoprazole 30 mg capsuleIndication s:Gastric ulcer, unspecified chronicity, unspecified whether gastric ulcer hemorrhage or perforation present Administer 1 Capsule (30 mg) via G-tube two times daily before meals. If lansoprazole is not available prescribe pantoprazole 40 mg twice a day for 3 months 180 Capsule 025 Active rosuvastatin (CRESTOR) 10 mg tabletIndications :Ischemic finger Administer 1 Tablet (10 mg) via G-tube at bedtime. 90 Tablet 025 Active metoprolol succinate (TOPROL XL) 25 mg Sustained-Release tabletIndications :multifocal atrial tachycardia Take 0.5 Tablets (12.5 mg) by mouth once daily. 45 Tablet 025 Active cefadroxil (DURICEF) 500 mg/5 mL suspensionIndicat ions:Pyelonephrit is Give 5mL by G tube twice per day for 7 days. 85 mL 5 11:04 AM DELIVERY TECH 025 Active Additional Information Patient not taking.Reason: reports completed , Informant: Family, Reported on 09/27/2024 lidocaine 4 % topical patchIndications: Pain Apply to intact skin to cover most painful area for max 12hr per 24hr period. 30 Patch 5 1:33 PM DELIVERY TECH 025 Active oxyCODONE (ROXICODONE) 5 mg immediate release tabletIndications :Generalized abdominal pain Administer 0.5 Tablets (2.5 mg) via G-tube every 6 hours if needed for Pain. 15 Tablet 5 1:33 PM DELIVERY TECH 025 Active Additional Information Patient taking differently:2.5 mg Per G TubeTID PRN, Pain, Informant: Family, Reported on 09/27/2024 sennosides-docusa te (SENOKOT S) (8.6-50 mg) tabletIndications :Constipation, unspecified constipation type Administer 1 Tablet via G-tube two times daily. 60 Tablet 1:33 PM DELIVERY TECH Active Additional Information Patient taking differently:1 Tablet Per G TubeDAILY, Informant: Family, Reported on 09/27/2024 ondansetron (ZOFRAN ODT) 4 mg disintegrating tabletIndications :Nausea and vomiting, unspecified vomiting type Place 1 Tablet (4 mg) on the tongue every 8 hours if needed for Nausea/Vomiting. 30 Tablet Active acetaminophen 325 mg tablet Take 650 mg by mouth every 6 hours if needed. 024 Active mirtazapine 7.5 mg tablet Take 7.5 mg by mouth once daily. Active triamcinolone 0.1 % cream 2 times daily if needed. 025 Active Active Problems Problem Noted Date Diagnosed Date Nausea and vomiting 07/21/2024 Abnormal urinalysis 07/21/2024 Elevated troponin 07/21/2024 Fatigue 07/21/2024 Malnutrition 07/21/2024 Dementia 07/18/2024 Acute thrombosis of right brachial vein 07/18/19 Ureteral stone 07/03/2024 Generalized abdominal pain 06/21/2024 Debility 06/02/2024 ACP (advance care planning) 06/02/2024 Palliative care by specialist 06/02/2024 Pain 06/02/2024 Acute metabolic encephalopathy 05/19/2024 Sepsis 05/19/2024 Pyelonephritis 05/19/2024 Acute non-ST elevation myocardial infarction (NS SIM) [...] (left leg) per Dr. Lino Hyperglycemia post OK 02/06/2010 CAD sp NSTEMI (non-ST elevated myocardial infarc tion) 02/05/2010 Overview (02/18/2010): - 02/05/10 presented to [place] ED with severe SOTO, developed chest pain, EKG showed anterolateral ST/T changes, and high troponins, transferred to [facility] 02/05/10 for further evaluation - [...] shoulder region 11/15/2010 05/10/2024 Chest pain, unspecified 05/28/201006/2009 Postoperative anemia due to acute blood loss 0 03/18/2010 UTI (lower urinary tract infection) 02/06/2010 02/18/2010 Cholecystitis with cholelithiasis 02/05/2010 02/18/2010 Migraine 02/05/2010 02/18/2010 Impacted cerumen 10/06/2007 02/18/2010 Encounters Date Type Department Care Team Description 10/31/2024 8:20 AM CDT Office Visit [facility] [address] [place] [address] Cortez Starkey MD Procedure (Left L4-5 TFESI) 10/13/2024 Transcribe Orders [facility] [address] [place] [address] Cortez Starkey MD 09/27/2024 9:40 AM CDT - 09/27/2024 10:25 AM CDT Surgery [facility] [address] [place] [address] Napoleon Silver MD ESOPHAGOGASTRODUODENOSCOPY 09/27/2024 9:04 AM CDT Anesthesia Event [facility] [address] [place] [address] Octavio Hair MD 09/27/2024 8:21 AM CDT - 09/27/2024 10:07 AM CDT Hospital Encounter [facility] [address] [place] [address] Napoleon Silver MD History of peptic ulcer disease (Primary Dx) Discharge Disposition: Home Self Care 09/26/2024 10:14 AM CDT Anesthesia Event [facility] [address] [place] [address] Sudeep Ayoub MD 09/26/2024 7:50 AM CDT - 09/26/2024 9:08 AM CDT Hospital Encounter [facility] [address] [place] [address] Filemon Wall MD Discharge Disposition: Home Self Care 09/26/2024 Travel 2024 9:00 AM CDT Home Care Visit [facility] [address] [place] [address] Renea Zamudio, PT PT - OASIS DISCHARGE from Last 3 Months Immunizations Immunization Administration Dates Next Due Influenza, IIV3 (Age [...] or isolated from those around you? 0 07/21/2024 Financial Resource Strain Answer Date R ecorded Difficulty of Paying Living Expenses 3 12/26/2023 Difficulty of Paying Living Expenses Not on file 12/26/2023 Food Insecurity Answer Date Recorded Do you worry your food will run out before you are able to buy more? 1 07/21/2024 Transportation Needs Answer Date Record ed Does lack of transportation keep you from medica l appointments? 1 07/21/2024 Does lack of transportation keep you from work, meetings or getting things that you need? 1 07/21/2024 Housing Stability Answer Date Recorded What is your housing situation today? 1 07/21/2024 Interpersonal Safety Answer Date Record ed Are you being hit, kicked, p ushed or yelled at (see row info)? No 07/21/2024 Interpersonal Safety Abuse 12 - 18 Not on file 07/21/2024 Interpersonal Safety Ambulatory Vulnerability No t on file 07/21/2024 Utilities Answer Date Recorded Do you have trouble paying f or utilities (for example, heat, electricity, water, phone)? 1 07/21/2024 Comments No Sex and Gender Information Value Date Recorded Sex Assigned at Not on file Legal Sex Female 5:27 AM DELIVERY TECH Gender Identity Not on file Sexual Orientation Not on file Obstetrics History Last Filed Vital Signs Vital Sign Reading Time Taken Comments Blood Pressure 156/80 09/27/2024 9:50 AM CDT Pulse 71 09/27/2024 9:50 AM CDT Temperature 36.9 C (98.5 F) 09/27/2024 9:20 AM CDT Respiratory Rate 16 09/27/2024 9:50 AM CDT Oxygen Saturation 97% 09/27/2024 9:50 AM CDT Inhaled Oxygen Concentration - - Weight 54.7 kg (120 lb 8 oz) 09/22/2024 8:26 AM CDT Height 149.9 cm (4' 11) 09/22/2024 8:26 AM CDT Body Mass Index 24.34 09/22/2024 8:26 AM CDT Plan of Treatment Health Maintenance Due Date Last Done Comments Tdap 09/16/1956 Depression screening for age 12+ 1956 Tetanus booster 1964 Zoster (shingles) series for age 50+ (1 of 2) 1994 DEXA/DXA scan for age 65+ 2009 Medicare Wellness for age 65+ 2009 Pneumococcal series for age 50+ (2 of 2 - PCV) 02/12/2011 02/12/2010 RSV vaccine for adults or (1 - 1-dose 75+ series) 09/16/2019 BMI (ht and wt on same day) for age 18+ 04/17/2021 04/17/2020 COVID-19 vaccine series ( season) 2024 08/31/2020, 08/10/2020 Influenza Vaccine (Season Ended) 2025 03/18/2010 Hepatitis B series for 19+ Aged Out N o longer eligible based on patient's age to complete this topic Medical Devices Implanted Type Area Manager Domestic Device Identifier Shelf Expiration Date Model / Serial / Lot Iol Chouteau +24.5 Talia Zcb00 - [id number] Implanted:Qty: 1 on 08/25/2017 by Chidi Hadley MD at [facility] Left: Eye [employer] 06/11/2021 ZCB00# / [id number] / Iol [place]au +24.5 Tecnis Zcb00 - [id number] Implanted:Qty: 1 on 2017 by Chidi Hadley MD at [facility] Right: Eye [employer] 05/31/2021 ZCB00# / [id number] / Stent Uret [id number] Contour - [id number] Implanted:Qty: 1 on 12/24/2023 by Chriss Stock MD at [facility] Left: Ureter [facility] 09/02/2026 [id number] 0 / / [id number] Stent Uret [id number] Contour - [id number] Implanted:Qty: 1 on 01/17/2024 by Chriss Stock MD at [facility] Left: Ureter [facility] 12/20/2025 [id number] / / [id number] Stent Uret [id number] Contour - [id number] Implanted:Qty: 1 on 07/05/2024 by Nicolas Lisa MD at [facility] Right: Ureter [facility] 04/24/2027 [id number] / / [id number] Procedures Procedure Name Priority Date/Time Associated Diagnosis Comments AMB EPIDURAL STEROID INJECTION Routine 0 10/31/2024 12:00 AM CDT Spinal stenosis, lumbar region, without neurogenic claudication Radiculopathy, lumbar region ENDOSCOPY 09/27/2024 9:03 AM CDT ESOPHAGOGASTRODUODENOSCOPY Tier 1 09/27 8:59 AM CDT See notes from Last 3 Months Results * AMB EPIDURAL STEROID INJECTION (10/31/2024 12:00 AM CDT) us Cortez Starkey MD NEUROLOGY ORD Final Resu lt * ENDOSCOPY (09/27/2024 9:03 AM CDT) 09/27/2024 9:03 AM CDT Narrative Transcriptions Napoleon Silver MD - 09/27/2024 9:19 AM CDT [facility] Patient Name: Sendy Moses Procedure Date: 09/27/2024 Gender: Female Date of : 1945 Admit Type: Ambulatory Procedure: Upper GI endoscopy Proceduralist: Napoleon Silver MD - [facility] Referring MD: Napoleon Silver MD Indications/Pre-Op Diagnosis: Follow-up gastric ulcer Medications: Monitored Anesthesia Care Procedure Description: Risk of bleeding, infection, perforation, need for surgery and alternatives discussed. The endoscope [id number] was introduced through the mouth, and advanced to the antrum of the stomach. The upper GI endoscopy was accomplished without difficulty. The patient tolerated the procedure well. Complications: No immediate complications. Estimated Blood Loss & Specimen: Estimated blood loss: none. Specimen collected: None Findings: The examined esophagus was normal. A gastric tube with tip in the jejunum was found in the gastricbody. The entire examined stomach was normal, otherwise. No evidence of residual or recurrent peptic ulcer disease. Recent stomach biopsycame back negative for H. pylori. I did not examine the duodenum today in order to decrease the risk of dislodging the J-tube extension. Ofnote, recent EGD revealed normal duodenum. Impressions/Post-Op Diagnosis: - Normal esophagus. - A gastric tube with tip in the small intestine was found in the stomach. - Normal stomach with no evidence of recurrent or residual pepticulcer disease. - No specimens collected. Recommendation: - Advance diet as tolerated today. - Okay to resume Eliquis if clinically indicated Napoleon Silver MD 09/27/2024 9:18:51 AM This report has been signed electronically. Note Initiated On: 09/27/2024 9:03 AM Napoleon Silver MD PROCEDURE ORD Final Result from Last 3 Months Insurance [id number] [id number] MEDICARE PB ONLY MEDICARE PART A HB ONLY MEDICARE PART B HB ONLY [facility] MEDICARE ADVANTAGE MR [facility] MEDICARE PPS Advance Directives * Full Code (Latest Code Status on File) Date Activated Date Inactivated Comments 09/27/2024 8:32 AM 09/27/2024 12:15 PM Question Answer Comments Code Status Discussion: Unable to Assess Preferences, Provider to review later * Full Code Date Activated Date Inactivated Comments 07/21/2024 11:07 PM 07/24/2024 5:59 PM Question Answer Comments Code Status Discussion: Reviewed Preferences * Full Code Date Activated Date Inactivated Comments 07/05/2024 8:23 AM 07/18/2024 6:58 PM Question Answer Comments Code Status Discussion: Not Discussed * Full Code Date Activated Date Inactivated Comments 06/21/2024 6:39 PM 07/05/2024 8:23 AM Question Answer Comments Code Status Discussion: Reviewed Preferences * Full Code Date Activated Date Inactivated Comments 05/16/2024 8:16 AM 06/16/2024 3:48 PM Question Answer Comments Code Status Discussion: Reviewed Preferences Care Teams Dress Fitter Relationship Specialty Start Date End Date John San MD [address] [place] [id number] PCP - General Family Practice 11/12/22 Johnna Fisher Retail Special Event Associate 06/30/24
--- OUTSIDE RECORDS SUMMARY | 2024-12-16 00:50 | XMS_ITS | Clinical Summary ---
Author Organization [facility] Address [address] [address] Care Team Providers Care Retail Planning Manager Name Role Phone No Primary/Referring, Laureny Primary Care Provider Unavailable Source Comments You are receiving this document as you are listed as the primary care provider,follow-up provider, or the patient has been referred to you for consultation.This is in compliance with the Medicare and[facility] EHR Incentive Program,which states Providers who transition their patient to another setting of careor provider of care or refers their patient to another provider of care shouldprovide summary care record for each transition of care or referral. [facility] Allergies No known active allergies Medications rosuvastatin [...] Tobacco: Never Tobacco Cessation:Counseling Given: Not Answered [facility] Utilities Answer Date Recorded In the past 12 months has e [employer], gas, oil, or water [facility] threatened to shut off services in your [...] in a halfway (including now)? No 09/27/2023 Comments Unknown Sex and Gender Information Value Date Recorded Sex Assigned at Not on file Legal Sex Female 7:21 AM CDT Gender Identity Not on file Sexual Orientation Not on file Last Filed Vital Signs Vital Sign Reading Time Taken Comments Blood Pressure 130/60 06/20/2024 1:30 PM SHAREPOINT ARCHITECT Pulse 89 06/20/2024 1:30 PM SHAREPOINT ARCHITECT Temperature 36.7 C (98.1 F) 06/20/2024 11:30 AM SHAREPOINT ARCHITECT Respiratory Rate 16 06/20/2024 1:30 PM SHAREPOINT ARCHITECT Oxygen Saturation 95% 06/20/2024 1:30 PM SHAREPOINT ARCHITECT Inhaled Oxygen Concentration - - Weight 59.7 [...] this topic Medical Devices Implanted Type Area Special Agent [employer] Device Identifier Shelf Expiration Date Model / Serial / Lot Stent Ureteral Ultra 6x22 - Polaris - [id number] Implanted:Qty: 1 on 09/29/2023 by Jose Gee MD at [facility] DEVICE Left: [employer]TER [employer] 05/14/2026 [id number] / / [id number] Explanted Type Area Special Agent F[employer] Device Identifier Shelf Expiration Date Model / Serial / Lot Stent Ureteral Ultra 6x22 - Polaris - [id number] Implanted:Qty: 1 on 08/27/2023 by Mira Price MD at [facility] Explanted:Qty: 1 on 09/29/2023 by Jose Gee MD at [facility] DEVICE Left: URETER [employer] 04/01/2026 [id number] / / [id number] Insurance MEDICARE [facility] Advance Directives * Full Code (Latest Code [...] 3:52 AM 08/27/2023 5:53 AM Care Teams Retail Planning Manager Relationship Specialty Start Date End Date No Primary/Referring, Phy PCP - General 08/26/23
--- OUTSIDE RECORDS SUMMARY | 2024-12-16 00:51 | XMS_ITS | Data Portability ---
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 INITIALLY MANAGED WITH A STENT. SHE IS NOW SP LEFT FLEX. URS, HLL, LEFT STENT. HERE FOR STENT REMOVAL PLAN STONE PREVENTION. INCREASED FLUIDS. KEFLEX SAMPLES. RTC 6 MO PRN. Not available 01/25/2024 14:33:55 Plan of Treatment Reminders Order Date Submit Date Provider Last Modified By Organization Details Last Modified Time Details Appointments None recorded. Lab urinalysis , dipstick 2024 025 [email or web address] [facility], [address], [place], [address], 12:03:49 Referral None recorded. Procedures None recorded. Surgeries None recorded. Imaging None recorded. Medication Orders None recorded. Patient TargetsNo targets recorded. Patient Instructions Encounter Date Encounter Id Patient Instructions Last Modified By Organization Details Last Modified Time 09/01/2024 [id number] doing well at this point, can rtc if new problems come up. [email or web address] Not available 09/01/2024 12:03:48 Reason for Referral None Reported. Results Created Date Observation Date Name Description Value Unit Range Abnormal Flag Note LastModifiedBy Organization Detail LastModifiedTime 09/02/19 25 09/01/2024 urina lysis , dipst ick BLOOD Negati ve Not Available [facility] [address], [place], [address], 08/23/2024 10:56:44 09/02/19 25 09/01/2024 urina lysis , dipst ick BILIRUBIN Negati ve Not Available [facility] [address], [place], [address], 08/23/2024 10:56:44 09/02/19 25 09/01/2024 urina lysis , dipst ick UROBILINOGEN 0.2 mg/dL (Norm) Not Available [facility] [address], [place], [address], 08/23/2024 10:56:44 09/02/19 25 09/01/2024 urina lysis , dipst ick KETONES Negati ve Not Available [facility] [address], [place], [address], 08/23/2024 10:56:44 09/02/19 25 09/01/2024 urina lysis , dipst ick PROTEIN Negati ve Not Available [facility] [address], [place], [address], 08/23/2024 10:56:44 09/02/19 25 09/01/2024 urina lysis , dipst ick NITRITES Negati ve Not Available [facility] [address], [place], [address], 08/23/2024 10:56:44 09/02/19 25 09/01/2024 urina lysis , dipst ick GLUCOSE Negati ve Not Available [facility] [address], [place], [address], 08/23/2024 10:56:44 09/02/19 25 09/01/2024 urina lysis , dipst ick p.H. 5.0 Not Available [facility] [address], [place], [address], 08/23/2024 10:56:44 09/02/19 25 09/01/2024 urina lysis , dipst ick S.G. (Specific [facility]) 1.025 Not Available [facility] [address], [place], [address], 08/23/2024 10:56:44 09/02/19 25 09/01/2024 urina lysis , dipst ick LEUKOCYTES Trace (10 WBC/uL ) Not Available [facility] [address], [place], [address], 08/23/2024 10:56:44 Result Notes None recorded. Procedures Surgical History Date Name Laterality Status Provider Name and Address Organization Details Recorded Time 5 lithotripsy completed Mónica Hernandez [facility] 09/01/2024 11:46:35 4 Cystoscopy with foreign body/stent removal completed Chriss Stock MD [address] [place] [address],[address], [place], [address], [facility] 01/25/2024 14:32:16 4 Keflex post Cysto completed Jose Peace [facility] 01/25/2024 14:27:25 Imaging Results None recorded. Procedure Notes None recorded. Medical Equipment None Reported. Allergies No known drug allergies Medications Name Sig Start Date Stop Date Status Note LastModified by Organization Details LastModified Time multivitami n tablet TAKE 1 TABLET BY MOUTH DAILY EVERY MORNING active Not Available Not Available No t Available acetaminoph en 325 mg tablet TAKE 2 TABLETS BY MOUTH THREE TIMES DAILY NEEDED FOR PAIN active Not Available Not Available No t Available cyanocobala min (vit B-12) 1,000 mcg tablet 01/24 completed Not Available Not Available Not Available clopidogrel 75 mg tablet TAKE 1 TABLET BY MOUTH DAILY active Not Available Not Available No t Available tramadol 50 mg tablet 01/24 completed Not Available Not Available Not Available cephalexin 500 mg capsule 01/24 completed Not Available Not Available Not Available pantoprazol e 40 mg tablet,lesley yed release TAKE 1 TABLET BY MOUTH EVERY DAY active Not Available Not Available No t Available lansoprazol e 30 mg capsule,del ayed release ADMINISTE R 1 CAPSULE VIA GIVE-TUBE TWICE DAILY BEFORE MEALS active Not Available Not Available No t Available nitroglycer in 0.4 mg sublingual tablet ONE TABLET UNDER TONGUE NEEDED FOR CHEST PAIN EVERY 5 MINUTES active Not Available Not Available No t Available gabapentin 300 mg capsule TAKE 1 CAPSULE BY MOUTH THREE TIMES DAILY 01/24 completed Not Available Not Available Not Available furosemide 20 mg tablet TAKE 1 TABLET BY MOUTH DAILY active Not Available Not Available No t Available gabapentin 100 mg capsule TAKE 1 CAPSULE BY MOUTH TWICE DAILY 01/24 completed Not Available Not Available Not Available metoprolol succinate ER 25 mg tablet,exte nded release 24 hr TAKE ONE-HALF TABLET BY MOUTH DAILY active Not Available Not Available No t Available ondansetron 4 mg disintegrat ing tablet DISSOLVE 1 TABLET ON THE TONGUE EVERY 8 HOURS NEEDED FOR NAUSEA OR VOMITING active Not Available Not Available No t Available cefdinir 300 mg capsule TAKE 1 CAPSULE BY MOUTH TWICE DAILY FOR 14 DAYS 01/24 completed Not Available Not Available Not Available lisinopril 2.5 mg tablet TAKE 1 TABLET BY MOUTH DAILY active Not Available Not Available No t Available oxycodone 5 mg tablet TAKE 1/2 TABLET VIA FEEDING TUBE THREE TIMES DAILY NEEDED FOR PAIN active Not Available Not Available No t Available rosuvastati n 10 mg tablet TAKE 1 TABLET BY MOUTH EVERY DAY active Not Available Not Available No t Available mirtazapine 7.5 mg tablet TAKE 1 TABLET BY MOUTH EVERY DAY AT BEDTIME active Not Available Not Available No t Available FeroSul 325 mg (65 mg iron) tablet 01/24 completed Not Available Not Available Not Available Athlete's Foot (terbinafin e) 1 % topical cream APPLY TOPICALLY TO THE AFFECTED AREA TWICE DAILY 01/24 completed Not Available Not Available Not Available Eliquis 5 mg tablet TAKE 1 TABLET BY MOUTH TWICE DAILY active Not Available Not Available No t Available potassium chloride ER 20 mEq tablet,exte nded release TAKE 1 TABLET BY MOUTH DAILY 01/24 completed Not Available Not Available Not Available Vitals Date Recorded Body weight Body mass index (BMI) Body height Provider Name and Address Organization Details Last Updated DateTime 09/01/2024 92497.12 g 26.7 kg/m2 139.7 cm Nicolas Lisa MD [address] [facility],[address], [address] 09/01/2024 11:54:07 Social History Question Answer Notes LastModified by [employer] Details LastModified Time Tobacco Smoking Status Never Smoker Chriss Stock MD [address] [facility],[address], [address], [facility] 01/25/2024 14:10:55 What Is Your Level Of Caffeine Consumption? None Information not available 01/25/2024 What Was The Date Of Your Most Recent Tobacco Screening? 09/01/2024 [email or web address] Information not available 09/01/2024 Has Tobacco Cessation Counseling Been Provided? No Information not available 09/01/2024 Sex: Unknown Functional Status Question Answer Note LastModified by Organizat ion Details LastModified Time Do you use any illicit or recreational drugs? No Information not available 01/25/2024 Do you or have you ever used any other forms of tobacco or nicotine? No [email or web address] Information not available 09/01/2024 What is your level of alcohol consumption? None Information not available 01/25/2024 Mental Status None recorded. Family History Relationship Description Onset Age of this Age Resolved Age Notes LastModified by Organization Details LastModified Time Father No current problems or disability Not available 12/2024 11:55:11 Mother No current problems or disability [email or web address] Not available 12/2024 11:55:11 Medical History Condition Response Diabetes N Sexually Transmitted Infection N Other N Bleeding Disorder N High Blood Pressure Y Kidney Stones Y Cancer N Lung Disease N Depression N High Cholesterol Y GERD/Acid Reflux Y Heart Disease N Gynecological HistoryNo gynecological history recorded. Obstetrics History GPAL:G 0 P 0 0 0 0 Immunizations Vaccine Type Date Status Note Provider Nam e and Address Organization Details Recorded Time Influenza, split virus, quadrivalent, preservative 8 completed Chriss Stock MD [address] [facility],[address], [address], [facility] 01/25/2024 14:09:08 Influenza, MDCK, quadrivalent, preservative 7 completed Chriss Stock MD [address] [place] [address],[address], [place], [address], [facility] 01/25/2024 14:09:08 Influenza, MDCK, quadrivalent, preservative 9 completed Chriss Stock MD [address] [place] [address],[address], [place], [address], [facility] 01/25/2024 14:09:08 Influenza, high-dose, quadrivalent, PF 0 completed Chriss Stock MD [address] [place] [address],[address], [place], [address], [facility] 01/25/2024 14:09:08 COVID-19, mRNA, LNP-S, PF, 30 mcg/0.3 mL dose 1 completed Chriss Stock MD [address] [place] [address],[address], [place], [address], [facility] 01/25/2024 14:09:09 COVID-19, mRNA, LNP-S, PF, 30 mcg/0.3 mL dose 1 completed Chriss Stock MD [address] [place] [address],[address], [place], [address], [facility] 01/25/2024 14:09:09 pneumococcal polysaccharide PPV23 0 completed Chriss Stock MD [address] [place] [address],[address], [place], [address], [facility] 01/25/2024 14:09:09 Tdap 1 completed Chriss Stock MD [address] [place] [address],[address], [place], [address], [facility] 01/25/2024 14:09:09 Pneumococcal conjugate PCV 13 0 completed Chriss Stock MD [address] [place] [address],[address], [place], [address], [facility] 01/25/2024 14:09:09 Influenza, split virus, trivalent, preservative 0 completed Chriss Stock MD [address] [place] [address],[address] [place] [address], [address], [facility] 01/25/2024 14:09:09 Td (adult), 2 Lf tetanus toxoid, preservative free, adsorbed 2 completed Chriss Stock MD [address] [place] [address],[address] [place] [address], [address], [facility] 01/25/2024 14:09:09 Td (adult), 2 Lf tetanus toxoid, preservative free, adsorbed 0 completed Chriss Stock MD [address] [place] [address],[address], [address], [facility] 01/25/2024 14:09:09 Td (adult), 2 Lf tetanus toxoid, preservative free, adsorbed 0 completed Chriss Stock MD [address] [place] [address],[address], [address], [facility] 01/25/2024 14:09:09 Td (adult), 2 Lf tetanus toxoid, preservative free, adsorbed 9 completed Chriss Stock MD [address] [place] [address],[address], [address], [facility] 01/25/2024 14:09:09 Past Encounters Encounter ID Performer Location Encounter Start Date Encounter Closed Date Diagnosis/Indication Diagnosis SNOMED-CT Code Diagnosis ICD10 Code Diagnosis Note [id number] MD Ryann Henderson [address] [place] [address] 01/25/2024 14:01:27 01/26/2024 15:52:36 History of calculus of kidney 630908000 Z87.153 [id number] MD Ryann Ward [address] [place] [address] 09/01/2024 11:29:14 09/04/2024 11:09:53 Kidney stone 91645085 N20.0 Health Concerns Section Related Observation LastModified by Organization Detai ls LastModified Time None Recorded Concern Status LastModified by Organization Details LastModified Time None Recorded Advance Directives Directive None Recorded Payers Insurance Date Sequence Insurance Name Policy Number Policy Summers Covered Member ID Summers Member ID Guarantor Name 09/04/2024 2 [employer]ARE - UCARE - DOS ON OR AFTER 2023 (MEDICAID REPLACEMENT - HMO) [id number] Sendy Moses [id number] Sendy Moses 09/01/2024 1 [place] [employer] Sendy Moses [id number] Sendy Moses 09/01/2024 2 [employer]ARE - INSTITUTIONAL (MEDICARE REPLACEMENT/ADVA NTAGE) [id number] Sendy Moses [id number] Sendy Moses 09/01/2024 1 [place] [employer] Sendy Moses [id number] Sendy Moses 09/01/2024 1 [employer] - INDIVIDUAL AND FAMILY (HMO) [id number] Sendy Moses [id number] Sendy Moses Notes Date Note Type Note Provider Name and Address Organization Details Recorded Time 01/25/2024 text/html 78YO FEMALE PRESENT TO THE CLINIC FOR STENT REMOVAL. DAUGHTER IN THE ROOM HELPING WITH TRANSLATING. s/p LEFT FLEXIBLE URS, HLL, LEFT STENT. DOING WELL. HERE FOR STENT REMOVAL. Chriss Stock MD [address] [place] [address],[address], [place], [address], [facility] 01/25/2024 14:34:18 09/01/2024 text/html followup after right stone treated with laser, stent removed while at [facility] and had cT done after stent out and looked good. UA bland today trying to drink a lot and still on night time tube feeding. Nicolas Lisa MD [address] [place] [address],[address], [place], [address], [facility] 09/01/2024 12:04:04 OBGyn Episode No OBEpisode recorded.
--- OUTSIDE RECORDS SUMMARY | 2024-12-16 00:51 | XMS_ITS | Clinical Summary ---
Author Organization [facility] Address [address] [place] [id number] Care Team Providers Care Steam And Power Supervisor Name Role Phone John San MD Primary Care Provider [phone] Allergies No known active allergies Medications diclofenac [...] times daily. 60 Tablet 5 10:47 AM SIX SIGMA PROJECT MANAGER Active tube feedingIndication s:Duodenal ulcer Length of [...] 7 days. 85 mL 5 11:04 AM SIX SIGMA PROJECT MANAGER 025 Active Additional Information Patient not taking.Reason: reports completed , Informant: Family, Reported on 09/27/2024 lidocaine 4 % topical patchIndications: Pain Apply to intact skin to cover most painful area for max 12hr per 24hr period. 30 Patch 5 1:33 PM SIX SIGMA PROJECT MANAGER 025 Active oxyCODONE (ROXICODONE) 5 mg immediate release tabletIndications :Generalized abdominal pain Administer 0.5 Tablets (2.5 mg) via G-tube every 6 hours if needed for Pain. 15 Tablet 5 1:33 PM SIX SIGMA PROJECT MANAGER 025 Active Additional Information Patient taking differently:2.5 mg Per G TubeTID PRN, Pain, Informant: Family, Reported on 09/27/2024 sennosides-docusa te (SENOKOT S) (8.6-50 mg) tabletIndications :Constipation, unspecified constipation type Administer 1 Tablet via G-tube two times daily. 60 Tablet 1:33 PM SIX SIGMA PROJECT MANAGER Active Additional Information Patient taking differently:1 Tablet [...] (left leg) per Dr. Lino Hyperglycemia post CT 02/06/2010 CAD sp NSTEMI (non-ST elevated myocardial infarc tion) 02/05/2010 Overview (02/18/2010): - 02/05/10 presented to [facility] ED with severe SOTO, developed chest pain, EKG showed anterolateral ST/T changes, and high troponins, transferred to [facility] 02/05/10 for further evaluation - 02/05/10 Angio: [...] Encounters Date Type Department Care Team Description 12/15/2024 9:00 AM CDT Ancillary Procedure [facility] [address] [place] [address] Arrived 10/31/2024 8:20 AM CDT Office Visit [facility] [address] [place] [address] Cortez Starkey MD Procedure (Left L4-5 TFESI) 10/13/2024 Transcribe Orders [facility] [address] [place] [address] Cortez Starkey MD 09/27/2024 9:40 AM CDT - 09/27/2024 10:25 AM CDT Surgery [facility] [address] [place] [address] Napoleon Silver MD ESOPHAGOGASTRODUODENOSCOPY 09/27/2024 9:04 AM CDT Anesthesia Event [facility] [address] [place] [address] Octavio Hair MD 09/27/2024 8:21 AM CDT - 09/27/2024 10:07 AM CDT Hospital Encounter [facility] [address] [place] [address] Napoleon Silver MD History of peptic ulcer disease (Primary Dx) Discharge Disposition: Home Self Care 09/26/2024 10:14 AM CDT Anesthesia Event [facility] [address] [place] [address] Sudeep Ayoub MD 09/26/2024 7:50 AM CDT - 09/26/2024 9:08 AM CDT Hospital Encounter [facility] [address] [place] [address] Filemon Wall MD Discharge Disposition: Home Self Care 09/26/2024 Travel 2024 9:00 AM CDT Home Care Visit [facility] [address] [place] [address] Renea Zamudio P, PT PT - OASIS DISCHARGE from Last [...] Recorded What is your housing situation today? 07/21/2024 Interpersonal Safety Answer Date Record ed [...] on file Legal Sex Female 5:27 AM SIX SIGMA PROJECT MANAGER Gender Identity Not on file Sexual Orientation [...] 18+ 04/17/2021 04/17/2020 COVID-19 vaccine series ( - season) 2024 08/31/2020, 08/10/2020 Influenza Vaccine (Season Ended) 2025 03/18/2010 Hepatitis B series for 19+ Aged Out N o longer eligible based on patient's age to complete this topic Medical Devices Implanted Type Area Children'S Book Author Device Identifier Shelf Expiration Date Model / Serial / Lot Iol Cavalier +24.5 Tecnis Zcb00 - [id number] Implanted:Qty: 1 on 08/25/2017 by Chidi Hadley MD at [facility] Left: Eye [employer] 06/11/2021 ZCB00# / [id number] / Iol Cavalier +24.5 Tecnis Zcb00 - [id number] Implanted:Qty: 1 on 2017 by Chidi Hadley MD at [facility] Right: Eye [employer] 05/31/2021 [id number]# / [id number] / Stent Uret [id number] Contour - [id number] Implanted:Qty: 1 on 12/24/2023 by Chriss Stock MD at [facility] Left: [place]re[place] [facility] 09/02/2026 [id number] 0 / / [id number] Stent Uret [id number] Contour - [id number] Implanted:Qty: 1 on 01/17/2024 by Chriss Stock MD at [facility] Left: Ureter [facility] [place] [facility] 12/20/2025 [id number] 0 / / [id number] Stent Uret [id number] Contour - [id number] Implanted:Qty: 1 on 07/05/2024 by Nicloas Lisa MD at [facility] Right: Ureter [facility] [place] [place] [facility] 04/24/2027 [id number] / / [id number] Procedures Procedure Name Priority Date/Time Associated Diagnosis Comments ECHO TTE COMPLETE WO CONTRAST Routine 9:43 AM CDT Syncope and collapse AMB EPIDURAL STEROID INJECTION Routine 0 10/31/2024 12:00 AM CDT Spinal stenosis, lumbar region, without neurogenic claudication Radiculopathy, lumbar region ENDOSCOPY 09/27/2024 9:03 AM CDT ESOPHAGOGASTRODUODENOSCOPY Tier 1 04/02 /2025 8:59 AM CDT See MD notes from Last 3 Months Results * ECHO TTE COMPLETE WO CONTRAST (12/15/2024 9:43 AM CDT) AORTIC VALVE MEAN PG 10 mmHg EJECTION FRACTION 70 % PEAK TR VELOCITY 2.5 m/s LVEDD 4.4 cm EJECTION FRACTION 60 - 65% Anatomical Region Laterality Modality Ultrasound 12/15/2024 9:27 AM CDT Narrative 12/15/2024 10:28 AM CDT ECHOCARDIOGRAM PILAR MESSINA : 1945 79 years Study Date: 12/15/2024 9:27:44 AM Gender: F BP: 148/82 mmHg Height: 150.00 cm BSA: 1.49 m Weight: 55.00 kg Tech: YULIANA Referring MD: ISAI RAI Site: [facility] Reading Location: Mobile-OP Patient Location: Outpatient. Procedure: 2D, Color Doppler and Spectral Doppler. Indication for study: Syncope and collapse Cardiac Rhythm: Regular.Study quality: Good. Final Impressions: 1. Normal LV size, borderline wall thickness, normal global systolic function with an estimated EF of 60 - 65%. 2. Severely enlarged left atrium. 3. Right ventricular cavity size is normal, global systolic RV function is borderline reduced. 4. The aortic valve is trileaflet and calcified, mild stenosis (Vmax 2.0 m/s, MG 10 mmHg and CRUZ 1.3 cm2) and no regurgitation. 5. Moderate tricuspid regurgitation. 6. Moderate pulumonary regurgitation. 7. Normal estimated RA pressure and PASP. Comparison Compared to prior exam of 05/10/24: - TR appears better on this study - Mild now present. Chamber Sizes and Function Normal left ventricular size, borderline wall thickness, normal global systolic function with an estimated EF of 60 - 65%. No resting regional wall motion abnormality visualized. Left atrial size is severely enlarged. Left atrial pressure is normal. Right ventricular cavity size is normal, global systolic RV function is borderline reduced. RV wall thickness is normal. The right atrium is normal. Right atrial volume index is 27 ml/m . Right atrial area is 16 cm . The pulmonary artery is of normal size and origin. The sinus of Valsalva is normal sized. The ascending aorta is borderline. Valves, RV Pressures and Diastolic Function The aortic valve is trileaflet and calcified, mild stenosis and no regurgitation. The mitral valve is sclerotic, mild mitral regurgitation. Mitral annular calcification is present. Indeterminate pattern of LV diastolic filling. The tricuspid valve is normal in structure, moderate tricuspid regurgitation. The tricuspid regurgitant velocity is 2.5 m/s, the estimated right ventricular systolic pressure is 26 mmHg plus right atrial pressure. There is normal estimated pulmonary pressure by tricuspid regurgitation velocity and right atrial pressure. The pulmonic valve is normal. Moderate pulmonary regurgitation. Masses, Effusion, Shunts There is no pericardial effusion. The inferior vena cava is normal sized, respiratory size variation greater than 50%. No left to right shunting was detected by limited color flow Doppler interrogation of the interatrial septum. MEASUREMENTS AND CALCULATIONS 2-D Measurements and LV Function: LVID (d) 4.4 cm LV FS% (2D) 34 % LVID (s) 2.9 cm LVOT diameter 1.8 cm IVS (d) 1.1 cm HR 62 bpm LVPW (d) 1.0 cm LA Vol index 52 ml/m2 Ao Sinus 3.6 cm RA Vol index 27 ml/m2 Ao Sinus ULN 3.6 cm * RA area 16 cm Asc Ao 3.9 cm RV Basal Diam 3.9 cm Asc Ao ULN 3.9 cm * RV Mid Diam 2.1 cm LA 3.8 cm * Input age outside of range, reported values correspond to Age = 79 Diastology: Mitral Tissue Doppler Pulmonary veins E Peak 0.9 m/s e', Septum 0.05 m/s Pulm s 32.6 cm/s A Peak 0.8 m/s e', Lateral 0.07 m/s Pulm d 40.3 cm/s E/A 1.2 E/e' Average 14.70 Pulm s/d ratio 0.81 DT 211 msec Aortic Valve: Vmax 2.0 m/s CRUZ (V) 1.32 cm VTI 0.46 m CRUZ (I) 1.26 cm LVOT V max 1.0 m/s Max PG 16 mmHg LVOT VTI 0.23 m Mean PG 10 mmHg SV 58 ml Dim Index 0.50 SV index 39 ml/m CO 3.6 l/min CI 2.4 l/min/m Mitral Valve: MVA 3.6 cm MV P 1/2 61 msec Tricuspid Valve and estimated PA pressures: TR Vmax 2.5 m/s TAPSE 1.2 cm TR maxG 26 mmHg Pulmonic Valve: PV Vmax 1.1 m/s PIEDV 1.5 m/s . This study was interpreted by an [facility] accredited facility. CC: [facility] (med records) [facility]. Final Procedure Note Garrett Guillory MD - 12/15/2024 ECHOCARDIOGRAM PILAR MESSINA : 1945 79 years Study Date: 12/15/2024 9:27:44 AM Gender: F BP: 148/82 mmHg Height: 150.00 cm BSA: 1.49 m Weight: 55.00 kg Tech: YULIANA Referring MD: ISAI RAI Site: [facility] Reading Location: Mobile-OP Patient Location: Outpatient. Procedure: 2D, Color Doppler and Spectral Doppler. Indication for study: Syncope and collapse Cardiac Rhythm: Regular.Study quality: Good. Final Impressions: 1. Normal LV size, borderline wall thickness, normal global systolicfunction with an estimated EF of 60 - 65%. 2. Severely enlarged left atrium. 3. Right ventricular cavity size is normal, global systolic RV functionis borderline reduced. 4. The aortic valve is trileaflet and calcified, mild stenosis (Vmax 2.0m/s, MG 10 mmHg and CRUZ 1.3 cm2) and no regurgitation. 5. Moderate tricuspid regurgitation. 6. Moderate pulumonary regurgitation. 7. Normal estimated RA pressure and PASP. Comparison Compared to prior exam of 05/10/24: - TR appears better on this study - Mild now present. Chamber Sizes and Function Normal left ventricular size, borderline wall thickness, normal globalsystolic function with an estimated EF of 60 - 65%. No resting regionalwall motion abnormality visualized. Left atrial size is severely enlarged.Left atrial pressure is normal. Right ventricular cavity size is normal,global systolic RV function is borderline reduced. RV wall thickness isnormal. The right atrium is normal. Right atrial volume index is 27ml/m . Right atrial area is 16 cm . The pulmonary artery is of normalsize and origin. The sinus of Valsalva is normal sized. The ascendingaorta is borderline. Valves, RV Pressures and Diastolic Function The aortic valve is trileaflet and calcified, mild stenosis and noregurgitation. The mitral valve is sclerotic, mild mitral regurgitation.Mitral annular calcification is present. Indeterminate pattern of LVdiastolic filling. The tricuspid valve is normal in structure, moderatetricuspid regurgitation. The tricuspid regurgitant velocity is 2.5 m/s,the estimated right ventricular systolic pressure is 26 mmHg plus rightatrial pressure. There is normal estimated pulmonary pressure by tricuspidregurgitation velocity and right atrial pressure. The pulmonic valve isnormal. Moderate pulmonary regurgitation. Masses, Effusion, Shunts There is no pericardial effusion. The inferior vena cava is normal sized,respiratory size variation greater than 50%. No left to right shunting wasdetected by limited color flow Doppler interrogation of the interatrialseptum. MEASUREMENTS AND CALCULATIONS 2-D Measurements and LV Function: LVID (d) 4.4 cm LV FS% (2D) 34% LVID (s) 2.9 cm LVOT diameter1.8 cm IVS (d) 1.1 cm HR 62bpm LVPW (d) 1.0 cm LA Vol index 52ml/m2 Ao Sinus 3.6 cm RA Vol index 27ml/m2 Ao Sinus ULN 3.6 cm * RA area 16cm Asc Ao 3.9 cm RV Basal Diam3.9 cm Asc Ao ULN 3.9 cm * RV Mid Diam2.1 cm LA 3.8 cm * Input age outside of range, reported values correspond to Age = 79 Diastology: Mitral Tissue Doppler Pulmonary veins E Peak 0.9 m/s e', Septum 0.05 m/s Pulm s 32.6 cm/s A Peak 0.8 m/s e', Lateral 0.07 m/s Pulm d 40.3 cm/s E/A 1.2 E/e' Average 14.70 Pulm s/d ratio 0.81 DT 211 msec Aortic Valve: Vmax 2.0 m/s CRUZ (V) 1.32 cm VTI 0.46 m CRUZ (I) 1.26 cm LVOT V max 1.0 m/s Max PG 16 mmHg LVOT VTI 0.23 m Mean PG 10 mmHg SV 58 ml Dim Index 0.50 SV index 39 ml/m CO 3.6 l/min CI 2.4 l/min/m Mitral Valve: MVA 3.6 cm MV P 1/2 61 msec Tricuspid Valve and estimated PA pressures: TR Vmax 2.5 m/s TAPSE 1.2 cm TR maxG 26 mmHg Pulmonic Valve: PV Vmax 1.1 m/s PIEDV 1.5 m/s . This study was interpreted by an [facility] accredited facility. CC: [facility] ([facility]) [facility]. Final us Isai Rai MD ECHO ORD Final Result * AMB EPIDURAL STEROID INJECTION (10/31/2024 12:00 AM CDT) us Cortez Starkey MD NEUROLOGY ORD Final Resu lt * ENDOSCOPY (09/27/2024 9:03 AM CDT) 09/27/2024 9:03 AM CDT Narrative Transcriptions Napoleon Silver MD - 09/27/2024 9:19 AM CDT [facility] Patient Name: Pilar Messina Procedure Date: 09/27/2024 Gender: Female Date of : 1945 Admit Type: Ambulatory Procedure: Upper GI endoscopy Proceduralist: Napoleon Silver MD - [facility] Referring MD: Napoleon Silver MD Indications/Pre-Op Diagnosis: Follow-up gastric ulcer Medications: Monitored Anesthesia Care Procedure Description: Risk of bleeding, infection, perforation, need for surgery and alternatives discussed. The endoscope [id number] was introduced through the mouth, and advanced [...] Final Result from Last 3 Months Insurance MEDICARE PB ONLY MEDICARE PART A HB ONLY MEDICARE PART B HB ONLY [facility] [employer] MEDICARE ADVANTAGE [facility] PLUS MEDICARE PPS Advance Directives * Full Code [...] Code Status Discussion: Reviewed Preferences Care Teams Steam And Power Supervisor Relationship Specialty Start Date End Date John San MD [address] [place] [address] PCP - General Family Practice 11/12/22 Johnna Fisher Methods Analyst Data Processing 06/30/24
== END 2024-12-15 09:01 | disposition home or self-care (01) ==
PROVIDERS: PCP Family Medicine; Visit Provider Internal Medicine
DX: R55 Syncope and collapse (principal); I07.1 Rheumatic tricuspid insufficiency; I37.1 Nonrheumatic pulmonary valve insufficiency
CPT/HCPCS: 93306